=== PATIENT | male | born 1935 | race Caucasian/White ===

== ENCOUNTER → 2017-11-13 11:02 | Outpatient (CLI) | payer MEDICARE, SELFPAY ==
[2017-11-13 11:31] LABS: Absolute Lymphocyte Count 1.95 X10^3/ul (0.83-4.51); Absolute Neutrophil Count 2.5 X10^3/uL (2.0-7.7); Basophil# 0.03 X10^3/uL; Basophil% 0.6 % (0-1); Eosinophil# 0.31 X10^3/uL; Eosinophils% 6.1 % (0-5); Hematocrit 37.8 % (40-54); Hemoglobin 12.7 g/dl (13.0-16.5); Lymphocyte # 1.95 X10^3/ul (4.0); Lymphocyte % 38.2 % (19-41); Mean Corp Hgb Conc 33.6 g/gl (32-36); Mean Corpuscular Hgb 30.6 pg (27.0-32.0); Mean Corpuscular Volume 91.1 fL (80-94); Mean Platelet Vol. 9.8 fl (6.2-12.0); Monocyte# 0.32 X10^3/uL; Monocyte% 6.3 % (0-10); Neutrophil # 2.49 X10^3/uL (2.7-7.7); Neutrophil % 48.8 % (47-70); Platelet Count 127 K/mm3 (150-450); RBC Distribution Width SD 46.1 fl (35.1-43.9); Red Blood Count 4.15 M/mm3 (4.6-6.2); White Blood Count 5.1 K/mm3 (4.4-11.0)
[2017-11-13 11:35] LABS: POSITIVE COUNT NO; POSITIVE DIFFERENTIAL NO; POSITIVE MORPHOLOGY NO
[2017-11-13 12:04] LABS: T4 Free Direct 0.81 ng/dL (0.76-1.46); Thyroid Stim Hormone (TSH) 4.21 uIU/mL (0.358-3.74)
== END ==
PROVIDERS: Family Provider Family Medicine; PCP Family Medicine; Visit Provider Nurse Practitioner Family
DX: R53.83 Other fatigue (principal)
CPT/HCPCS: 36415; 84439; 84443; 85025

== ENCOUNTER → 2018-05-16 09:38 | Outpatient (CLI) | payer MEDICARE, SELFPAY ==
[2018-04-23 09:01] VITALS: BMI 32.1
--- NOTE | 2018-05-16 09:42 | ECHOD_ITS ---
Reason For Study: CAD/ASHD Procedure This was a 2D Doppler, Color Flow transthoracic echocardiogram. Exam performed in department. Left Ventricle Mild concentric left ventricular hypertrophy. The estimated ejection fraction is 75 %. Stage 1 diastolic dysfunction. No regional wall motion abnormalities noted. Right Ventricle Normal size and thickness. Normal systolic function. Atria Normal left atrium. Normal right atrium. Normal atrial septum. Mitral Valve The mitral valve is structurally normal. No prolapse or stenosis seen. Tricuspid Valve Normal tricuspid valve. Unable to estimate RV systolic pressure due to inadequate jet, pulmonary artery pressure probably normal. Aortic Valve Trisinus/trileaflet aortic valve. Mild diffuse aortic valve thickening. Mild focal aortic valve thickening. There is no aortic stenosis. Pulmonic Valve Normal pulmonic valve. Mild (1+) pulmonic valve insufficiency. Great Vessels Normal aortic root. Normal arch. Normal inferior vena cava. Inferior vena cava collapse with sniff. Pericardium/Pleural No pericardial effusion. MMode/2D Measurements & Calculations LVIDd: 3.8 cm IVSd: 1.3 cm Ao root diam: 3.8 cm LVIDs: 2.7 cm LVPWd: 1.3 cm RVDd: 3.3 cm FS: 27.8 % LAV(MOD-bp): 52.4 ml LVAd ap4: 32.3 cm2 SV(MOD-sp4): 66.4 ml LAV(MOD-bp) Indexed: 23.9 ml/m2 EDV(MOD-sp4): 98.3 ml LAV(MOD-sp2): 55.2 ml EDV(sp4-el): 98.9 ml LAV(MOD-sp4): 45.0 ml LVAs ap4: 15.6 cm2 ESV(MOD-sp4): 31.9 ml ESV(sp4-el): 30.2 ml EF(MOD-sp4): 67.6 % EF(sp4-el): 69.4 % SV(sp4-el): 68.7 ml LA A4 area: 18.5 cm2 LA dimension(2D): 3.7 cm RA A4 area: 13.3 cm2 Time Measurements MV dec time: 0.42 sec Doppler Measurements & Calculations MV E max carlos: 58.2 cm/sec Lat Peak E' Carlos: 6.7 cm/sec Med Peak E' Carlos: 5.4 cm/sec MV A max carlos: 100.8 cm/sec E/E' lat: 8.7 E/E' med: 10.9 MV E/A: 0.58 Ao V2 max: 159.3 cm/sec LV V1 max: 109.2 cm/sec PA V2 max: 93.5 cm/sec Ao max P.1 mmHg LV V1 max P.8 mmHg PI end-d carlos: 70.8 cm/sec Interpretation Summary Mild concentric left ventricular hypertrophy. The estimated ejection fraction is 75 %. Stage 1 diastolic dysfunction. Unable to estimate RV systolic pressure due to inadequate jet, pulmonary artery pressure probably normal. Compared to echo report dated 02/23/2016, LV Function has improved from 505 to 75%. Ordering Physician: Johnny King Referring Physician: HERMINIO AGUSTIN Performed By: Xuan Franklin RDCS
== END ==
PROVIDERS: Family Provider Family Medicine; PCP Family Medicine; Referring Provider Internal Medicine Cardiovascular Disease; Visit Provider Internal Medicine Cardiovascular Disease
DX: I25.10 Atherosclerotic heart disease of native coronary artery without angina pectoris (principal); I51.9 Heart disease, unspecified
CPT/HCPCS: 93306

== ENCOUNTER → 2018-05-18 10:27 | Outpatient (CLI) | payer MEDICARE, SELFPAY ==
[2018-04-23 09:01] VITALS: BMI 32.1
--- NOTE | 2018-05-18 10:28 | STEWCON_ITS ---
Reason For Study: CAD Stress Results Protocol: Dobutamine Stress Echo Maximum Predicted HR: 140 bpm Target HR: 119 bpm % Maximum Predicted HR: 90 % DurationHeart Rate Stage (mm:ss) (bpm) BP Comment Baseline 59 139/86No Chest Pain; 5 ML Diluted Definity Given DSE 10 MCG 3:42 69 149/93No Chest Pain DSE 20 MCG 3:00 111 122/90No Chest Pain DSE 30 MCG 2:34 126 151/88No Chest Pain Recovery 71 146/82No Chest Pain Stress Duration: 9:16 mm:ss Maximum Stress HR: 126 bpm METS: 1 Baseline Echocardiogram Findings The estimated ejection fraction is 65 %. Stress Echo Wall motion Data Resting WM Intermediate WM Stress WM Resting Wall Motion Wall Motion Stress No regional wall motion No regional wall motion abnormalities noted. abnormalities noted. EKG Data Normal intervals are noted. The patient was titrated from 10 mcg to a maximun of 30 mcg of dobutamine during the stress. The maximum heart rate attained was 126 beats per minute. This was 90% of maximum predicted heart rate. During dobutamine infusion, there were no ST or T wave changes noted to suggest ischemia. No clinical angina was noted. Interpretation Summary The estimated ejection fraction is 65 %. Normal, adequate, dobutamine echocardiogram. Negative for ischemia by EKG and echocardiographic criteria. No anginal symptoms noted. Rare PVC noted. Appropriate blood pressure response to dobutamine. Final LVEF of 75%. Decreased sensitivity due to poor echo windows requiring Definity enhancing agent. Test was terminated due to attainment of target heart rate. No complications. The study was technically difficult. Contrast injection was performed. Ordering Physician: Johnny King Referring Physician: Wagner Gr Performed By: Spenser Akhtar RCS
== END ==
PROVIDERS: Family Provider Family Medicine; PCP Family Medicine; Referring Provider Internal Medicine Cardiovascular Disease; Visit Provider Internal Medicine Cardiovascular Disease
DX: I25.10 Atherosclerotic heart disease of native coronary artery without angina pectoris (principal); I51.9 Heart disease, unspecified; E78.5 Hyperlipidemia, unspecified; Z95.5 Presence of coronary angioplasty implant and graft
CPT/HCPCS: 93017; 93350; J7040; Q9957; A4216; C8928

== ENCOUNTER 2018-10-31 20:40 | Emergency (ER) | payer MEDICARE, SELFPAY ==
[2018-04-23 09:01] VITALS: BMI 32.1
[2018-10-31 20:41] VITALS: BP 168/77; PULSE 79; RESP 22; TEMP 36.2; O2SAT 97; BMI 30.4
--- NOTE | 2018-10-31 21:39 | ED.VIS.UPPEX ---
History of Present Illness Chief Complaint: Laceration Informant: Patient Occurred: Hours - 2-3 Mechanism/Context: Incised - Accidentally on a wooden gasoline powered model airplane propeller Context: Sudden Onset Timing: Continuous Quality of Pain: - - sore Location: Right forearm Current Severity: Mild Maximum Severity: Moderate Worsened by: Palpation Relieved by: Leaving alone Associated Symptoms: Negative for: Parasthesia, Weakness, Loss of Funtion Narrative: [id number]. Patient has had significant bleeding since he is on Plavix for cardiac stents. He denies any systemic symptoms or lightheadedness. Tetanus Immunization: Unknown - Past Medical History (1) Atherosclerotic heart disease of [place] coronary artery without angina pectoris Status: Chronic Comment: 02/22/2016 Acute lateral STEMI; PTCA and ANDRY X2 to proximal and mid LAD, POBA of ostium of dx (2) Hyperlipidemia Status: Chronic (3) Hypertension Status: Chronic (4) Left ventricular systolic dysfunction Status: Chronic Comment: per echo 02/23/2016 (5) Type 2 diabetes mellitus Status: Chronic Past Medical History - Allergies and Home Meds Allergies/Adverse Reactions: Allergies Penicillins Allergy (Verified 10/31/18 20:53) Hives tree and shrub pollen Allergy (Verified 10/31/18 20:53) Other lisinopril Adverse Reaction (Mild, Verified 10/31/18 20:53) cough Primary Care Physician: Wagner Gr MD [Primary Care Provider] - Surgical History: appendectomy, - - 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 Denies: Swelling Skin: Reports: Wounds Neurological: Denies: Headache, Weakness, Parasthesia, Numbness Physical Exam Vital Signs/Narrative: Vital Signs Temp Pulse Resp BP Pulse Ox 10/31/18 20:41 97.2 F L 79 22 H 168/77 H 97 General: Well nourished, Well developed, - - Well-appearing, NAD Head: Normocephalic, Atraumatic Extremeties: Full range of motion of wrist extensors and finger extensors. Flexor is also intact. Neurovascularly intact distally right upper extremity. Skin: Trauma - 4 cm laceration down to the fascia on the dorsal mid right forearm. No tendon or muscle visible. Significant venous bleeding that resolves with pressure. No arteriolar bleeding, all is very dark. No contamination. Laceration linear. Neurological: Alert, Oriented x3, Cranial nerves II-XII grossly intact, Normal Strength, Normal Sensation Psychological: Normal affect, Normal Mood Diagnostic/Tx/Re-eval - Medical Decision Making Laceration was repaired, he will be placed on prophylactic antibiotics since it went down to the fascia. His tetanus was updated. Discussed signs of infection and reasons to return to the ER. He is comfortable with his overall plan. Procedures - Lacerations Right forearm Length: 4 cm Depth: Fascia Shape: Linear Prep: Sterile Conditions, Chlorhexadine Laceration repair: Lidocaine with epi - 7 cc, Local, Skin sutures Irrigated (ml): 100 Number of Sutures/Devan: 5 Suture Information: Ethilon, Horizontal, Mattress, - - 3-0 Comment: Skin edges everted nicely, good hemostasis. Tolerated well. No comp occasions. ED Disposition - Plan for ED Patient: Disposition: Home or Assisted Living Diagnosis: Laceration of right forearm, Immunization, tetanus-diphtheria Instructions: LACERATION, Extrem (Suture, Staple or Tape) Prescriptions: Cephalexin [Keflex] 500 mg PO Q8 #15 cap Prescription Printed Referrals: Wagner Gr MD [Primary Care Provider] - 10-14 Days suture removal
[2018-10-31 22:44] VITALS: BP 156/84; PULSE 57; RESP 16; O2SAT 97
[2018-10-31] MEDS: Diphth,Pertuss(Acell),Tet Vac 0.5 ML Vial IM (22:56)
[2018-10-31 23:31] VITALS: PULSE 62; RESP 14; O2SAT 96
== END 2018-10-31 23:33 | disposition home or self-care (01) ==
PROVIDERS: Emergency Provider Emergency Medicine; Family Provider Family Medicine; PCP Family Medicine
DX: S51.811A Laceration without foreign body of right forearm, initial encounter (principal); W45.8XXA Other foreign body or object entering through skin, initial encounter; Y93.9 Activity, unspecified; Y92.9 Unspecified place or not applicable; Y99.9 Unspecified external cause status; Z23 Encounter for immunization; I25.10 Atherosclerotic heart disease of native coronary artery without angina pectoris; E11.9 Type 2 diabetes mellitus without complications; I10 Essential (primary) hypertension; E78.5 Hyperlipidemia, unspecified; Z79.02 Long term (current) use of antithrombotics/antiplatelets; I25.2 Old myocardial infarction; Z88.0 Allergy status to penicillin; Z95.5 Presence of coronary angioplasty implant and graft
CPT/HCPCS: 12002; 90471; 90715; 99284

== ENCOUNTER 2018-11-28 07:25 | Emergency (ER) | payer MEDICARE, SELFPAY ==
[2018-11-13 11:23] VITALS: BMI 30.5
[2018-11-28 07:26] VITALS: BP 177/115; PULSE 61; RESP 18; TEMP 36.4; O2SAT 98; BMI 30.4
--- NOTE | 2018-11-28 07:36 | ED.VIS.GEN ---
History of Present Illness Chief Complaint: Chest Pain Informant: Patient Onset: Yesterday Timing: Continuous Current Severity: Moderate Maximum Severity: Moderate Narrative: Patient presents with left-sided chest pain that started yesterday it is itchy and painful it starts in his back and makes its way around to the front, it is only on the left side of the body. He denies any fever chills cough congestion or shortness of breath. He noticed the rash last night. It is burning and itching. The pain is constant. He has no tearing sensation. 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 Smoking Status: Former smoker - Family History Maternal Family History: Family History (Last Reviewed 11/10/18 @ 16:32 by Shelbie Lake) Father CAD (coronary artery disease) Myocardial infarction Sudden cardiac Mother Diabetes Family History: Reports: No pertinent history Paternal Family History: Family History (Last Reviewed 11/10/18 @ 16:32 by Shelbie Lake) Father CAD (coronary artery disease) Myocardial infarction Sudden cardiac Mother Diabetes Family History: Reports: Heart Disease, No pertinent history Review of Systems All systems negative except as indicated General: Denies: Fever Cardiovascular: Reports: Chest pain. Denies: Heart racing Respiratory: Denies: Cough, Sputum Gastrointestinal: Denies: Nausea Musculoskeletal: Reports: Back pain. Denies: Neck pain Skin: Reports: Rash Neurological: Denies: Weakness Physical Exam Vital Signs/Narrative: Vital Signs Temp Pulse Resp BP Pulse Ox 11/28/18 07:26 97.6 F L 61 18 177/115 H 98 General: Well nourished ENT: Moist mucous membranes Cardiovascular: Regular rate, Regular rhythm Respiratory: No distress, CTA bilaterally, Chest tenderness Abdomen: Soft, Nontender Back: - - There is tenderness over the same dermatome distribution as the chest. Skin: - - Patient has a vesicular rash consistent with herpes zoster on his chest left side of his trunk extending into a few patches on the back. This is all in a dermatomal distribution. No signs of cellulitis. Psychological: Normal affect Diagnostic/Tx/Re-eval - Rhythm Strip Rhythm Strip: Sinus Rhythm Rate: 55 Ectopy: PAC(s) - EKG Initial EKG Interpretation: Sinus Rhythm, - - Normal AL interval normal QTC nonspecific intraventricular delay. Nonspecific ST changes Interpreted by emergency doctor - Medical Decision Making Patient has an unremarkable EKG. He has a history and physical consistent with herpes zoster. I will treat as such. First dose of acyclovir was given in the emergency department I will discharge with both analgesics and acyclovir at home. I educated him. Disposition discharge stable condition ED Disposition - Plan for ED Patient: Disposition: Home or Assisted Living Diagnosis: Herpes zoster Instructions: Shingles (Herpes Zoster) Prescriptions: Oxycodone HCl/Acetaminophen [Percocet 5/325] 1 tab PO Q6H PRN PRN 3 Days #12 tab PRN Reason: Pain Prescription Printed Acyclovir [Zovirax] 800 mg PO 5X/DAY #35 tab Prescription Printed Referrals: Wagner Gr MD [Primary Care Provider] -
--- NOTE | 2018-11-28 07:47 | EKG12_ITS ---
Test Reason : CP Blood Pressure : / mmHG Vent. Rate : 055 BPM Atrial Rate : 055 BPM P-R Int : 156 ms QRS Dur : 090 ms QT Int : 444 ms P-R-T Axes : 028 -08 036 degrees QTc Int : 424 ms Sinus bradycardia with Premature atrial complexes Otherwise normal ECG Confirmed by FRANCIS COPE, CAT ([id number]), video effects editor JAI CABALLERO ([id number]) on 11/30/2018 11:35:08 AM Referred By: VLADIMIR Confirmed By:SHAY BLANCO MD
[2018-11-28] MEDS: Acyclovir 800 MG Tablet PO (08:00)
[2018-11-28 08:02] VITALS: BP 140/83; PULSE 76; RESP 18; O2SAT 99
== END 2018-11-28 08:03 | disposition home or self-care (01) ==
PROVIDERS: Emergency Provider Emergency Medicine; Family Provider Family Medicine; PCP Family Medicine
DX: B02.9 Zoster without complications (principal); Z79.84 Long term (current) use of oral hypoglycemic drugs; Z79.02 Long term (current) use of antithrombotics/antiplatelets; Z79.899 Other long term (current) drug therapy; Z88.0 Allergy status to penicillin; Z87.891 Personal history of nicotine dependence
CPT/HCPCS: 93005; 99283

== ENCOUNTER 2019-01-28 08:35 | Emergency (ER) | payer MEDICARE, SELFPAY ==
[2019-01-28 08:36] VITALS: BP 149/81; PULSE 63; RESP 18; TEMP 36.4; O2SAT 97; BMI 30.5
--- NOTE | 2019-01-28 09:29 | ED.DCSUM_ITS ---
- ER Visit Summary Date of Service: 01/28/19 Chief Complaint: Laceration History of Present Illness: The patient is a 83 M who presents the emergency department with a left index and thumb laceration. The injury occurred possibly 48 hours prior to arrival. He states he was handling a arrowhead and it lac erated the finger. Left tetanus is up-to-date. He states it is still bleeding and he is on Plavix. He states that now the finger is becoming swollen and red and more painful. He last changed his bandage yesterday. He notes that the left thumb laceration is healing. He is a diabetic. Physical Examination: Afebrile vital signs are stable Gen: Well-nourished well-developed Head: Normocephalic atraumatic Eyes: Perrl EOMI ENT: TMs clear no rhinorrhea moist mucous membranes Neck: Supple no lymphadenopathy no JVD nontender CVS: Regular rate rhythm no murmurs normal S1-S2 Respiratory: No distress clear to auscultation bilaterally chest nontender Abdomen: Soft nontender nondistended normal bowel sounds no masses Back: Nontender Extremity: The left thumb all over the fat pad shows a 1 cm linear laceration that appears to be healing. No evidence of infection. the left index finger demonstrates an L-shaped 2 cm laceration over the lateral volar aspect of the distal index finger. There is erythema extending over the anterior surface up towards but not including the palm. The tissue around the laceration is white and there is still active venous bleeding. He is neurovascular intact distal. There is no crepitance. There is no evidence of a felon. There is no evidence of a flexor or extensor tenosynovitis. Skin: Normal color no rash Neuro: alert orientated ?3 CN II-XII intact normal strength sensation reflexes gait cerebellar Psych: Normal affect normal mood Emergency Department Course and Treatment: Was explained to the patient that typically we would not suture this type of injury however it is still bleeding after at least 48 hours of injury. Wound was locally anesthetized using some 1% lidocaine and a single stitch was placed at the corner of the laceration. Surgicel was placed on top of this and then tube gauze. He will be placed on Keflex. Patient was advised to leave the dressing in place for 48 hours at which point he needs a repeat examination either by us or his primary care physician. Was explained to him that if he is worsening such as seen fever or erythema extending up onto the hand he should come back even if it is before the 48-hour vasquez. He was advised that if is not improving or worsening he may require admission and IV antibiotics and further care. Otherwise if he is healing up appropriately stitches will need to be removed in 7 to 10 days. Impression: 1. Cellulitis of the left index finger 2. 2 cm left index finger laceration with repair 3. 1 cm left thumb laceration without repair This note was generated with [employer] Rocket dictation software. It may contain incorrect words, spelling, and punctuation that were not noted in review of the chart prior to signing ED Disposition - Plan for ED Patient: Disposition: Home or Assisted Living Instructions: Cellulitis, LACERATION, Hand Prescriptions: Cephalexin [Keflex] 500 mg PO Q6 #40 cap Prescription Printed Referrals: Vasquez Gr MD [Primary Care Provider] - 2 Days for wound check Additional Instructions: Stitches will need to be removed in 7-10 days
[2019-01-28] MEDS: Cephalexin 250 MG Capsule 500 MG PO (09:51)
== END 2019-01-28 09:53 | disposition home or self-care (01) ==
PROVIDERS: Emergency Provider Emergency Medicine; Family Provider Family Medicine; PCP Family Medicine
DX: L03.012 Cellulitis of left finger (principal); S61.211A Laceration without foreign body of left index finger without damage to nail, initial encounter; S61.012A Laceration without foreign body of left thumb without damage to nail, initial encounter; W45.8XXA Other foreign body or object entering through skin, initial encounter; Y93.9 Activity, unspecified; Y92.9 Unspecified place or not applicable; Y99.9 Unspecified external cause status; I25.10 Atherosclerotic heart disease of native coronary artery without angina pectoris; E11.9 Type 2 diabetes mellitus without complications; I10 Essential (primary) hypertension; I25.2 Old myocardial infarction; Z79.84 Long term (current) use of oral hypoglycemic drugs; Z79.02 Long term (current) use of antithrombotics/antiplatelets; Z79.899 Other long term (current) drug therapy; Z87.891 Personal history of nicotine dependence
CPT/HCPCS: 12001; 99283

== ENCOUNTER 2020-01-16 13:18 | Inpatient (IN) | payer MEDICARE, SELFPAY ==
[2019-12-27 13:37] VITALS: BMI 26.9
[2020-01-16 13:19] VITALS: BP 154/80; PULSE 70; RESP 18; TEMP 36.2; O2SAT 99; BMI 26.9
--- NOTE | 2020-01-16 13:42 | CT_ITS ---
STUDY: CT ABDOMEN AND PELVIS WITHOUT CONTRAST REASON FOR EXAM: Male, 84 years old. HEMATURIA W/ CLOTS X-SEVERAL DAYS -- HX- CLL -- SURG-APPY, HEART STENTS RADIATION DOSAGE (If Supplied By Facility): CTDIvol = ( 10.99 ) mGy, DLP = ( 535.33 ) mGycm TECHNIQUE: Transaxial images were obtained from the dome of the diaphragm to the symphysis pubis without oral contrast, and without intravenous contrast. Sagittal and coronal images were reconstructed. Individualized dose optimization techniques were used for this CT. COMPARISON: Comparison is made with prior study dated 11/03/2016. FINDINGS: The visualized lung bases are unremarkable. Coronary artery calcification. Normal liver. Normal gallbladder and extrahepatic biliary system. Normal spleen. There is diffuse atrophy of the pancreas. Normal bilateral adrenal glands. Normal right kidney. Normal left kidney. Normal visualized stomach. Normal small intestine. Normal colon. The appendix is visualized and appears normal. There is diffuse atherosclerotic calcification of the abdominal aorta and its major visceral branches. Minimally dilated distal abdominal aorta measuring 2.6 cm in transverse dimension. Normal inferior vena cava. There is retroperitoneal lymphadenopathy with enlarged nodes greater than 10-15mm in the short axis. These have progressed in size as well as in number as compared to prior study. There is also evidence of a progression of the pelvic lymphadenopathy bilaterally more prominent on the left side. There is evidence of a 3 cm x 4.4 cm polypoid mass arising at the base the bladder on the right side. There is enlargement of the prostate gland. It measures 6.3 cm x 6.5 cm. There is a left-sided inguinal hernia containing adipose tissue. There are diffuse degenerative changes of the visualized lumbar spine. CT/Abdomen/Pelvis without Cont IMPRESSION: Progressive enlargement of the retroperitoneal lymph and pelvic lymph nodes as compared to prior study. Polypoid lesion in the urinary bladder as described. Prostatic enlargement. Small left inguinal hernia. Electronically Signed: Sudhakar Shelby, at 14:41 EDT , Service support ,
--- NOTE | 2020-01-16 13:45 | ED.DCSUM_ITS ---
History of Present Illness Chief Complaint: Complaint Informant: Patient Onset: Days - 2 Narrative: Patient presents for evaluation reporting hematuria with clots for the past couple days. States today had some pain in the lower abdomen, he states there was urine retention. Prior to coming to the ED he states he urinated a large clot, then has urinated again since then. He is on Plavix for history of coronary stent. No aspirin therapy no other anticoagulants. Similar symptoms 2 years ago after his coronary stent. He is followed by Dr. Peres. Reports he did initially call urology office has a appointment next Monday for planned cystoscopy. No history of kidney stones. Currently symptom-free. No fever. No dysuria. 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 Smoking Status: Former smoker - Family History Maternal Family History: Family History (Last Reviewed 12/27/19 @ 13:55 by Marlene BENOIT, PA) Father CAD (coronary artery disease) Myocardial infarction Sudden cardiac Mother Diabetes Family History: Reports: No pertinent history Paternal Family History: Family History (Last Reviewed 12/27/19 @ 13:55 by Marlene BENOIT, PA) Father CAD (coronary artery disease) Myocardial infarction Sudden cardiac Mother Diabetes Family History: Reports: Heart Disease, No pertinent history Review of Systems General: Denies: Chills, Fever, Sweats Eyes: Denies: Visual changes - bilaterally, Diplopia ENT: Denies: Rhinorrhea, Sore throat Cardiovascular: Denies: Chest pain, Palpitations Respiratory: Denies: Dyspnea, Cough, Dyspnea on exertion Gastrointestinal: Reports: Abdominal pain. Denies: Nausea, Vomiting, Diarrhea, Melena, Hematochezia Genitourinary: Reports: Hematuria. Denies: Dysuria, Frequency Musculoskeletal: Denies: Back pain, Extremity Pain Skin: Denies: Rash, Wounds Neurological: Denies: Headache, Weakness, Numbness Physical Exam Vital Signs/Narrative: Vital Signs Temp Pulse Resp BP Pulse Ox 01/16/20 13:19 97.2 F L 70 18 154/80 H 99 Inital Vital Signs reviewed: Yes General: Well nourished, Well developed, No Acute Distress Head: Normocephalic, Atraumatic Eyes: Perrl, EOMI ENT: Moist mucous membranes, No rhinorrhea Neck: Supple, Nontender Cardiovascular: Regular rate, Regular rhythm, No murmurs Respiratory: No distress, CTA bilaterally, Chest nontender Abdomen: Soft, Nontender, Nondistended, Normal bowel sounds, - - Negative Hunt's or McBurney's tenderness. Back: Nontender, Normal Inspection Extremities: Nontender, No edema Skin: Normal color, No rash Neurological: Alert, Oriented x3, Cranial nerves II-XII grossly intact, Normal Strength, Normal Sensation Psychological: Normal affect, Normal Mood Diagnostic/Tx/Re-eval Clinical Impression(s) from Imaging Studies Abdomen/Pelvis CT 01/16/20 13:42 IMPRESSION: Progressive enlargement of the retroperitoneal lymph and pelvic lymph nodes as compared to prior study. Polypoid lesion in the urinary bladder as described. Prostatic enlargement. Small left inguinal hernia. Electronically Signed: Sudhakar Afsaneh, at 14:41 EDT , Service support , Abnormal Lab Results 01/16/20 01/16/20 01/16/20 14:00 14:00 14:10 WBC 4.4 RBC 3.81 L Hgb 11.7 L Hct 35.4 L MCV 92.9 MCH 30.7 MCHC 33.1 RDW Std Deviation 48.7 H RDW Coeff of Lamont 14.5 Plt Count 80 L MPV 10.7 Immature Gran % (Auto) 5.900 H Neut % (Auto) 30.3 L Lymph % (Auto) 49.2 H Ralls % (Auto) 6.8 Eos % (Auto) 7.1 H Baso % (Auto) 0.7 Absolute Neuts (auto) 1.3 L Absolute Lymphs (auto) 2.16 Nucleated RBC % 0 Differential Comment SCANNED Platelet Estimate MOD DEC PT INR APTT Sodium 140 Potassium 3.8 Chloride 107 Carbon Dioxide 28.0 Anion Gap 5 BUN 20 H Creatinine 1.23 Estim Creat Clear Calc 47.81 Est GFR (MDRD) Af Amer 72 Est GFR (MDRD) Non-Af 60 BUN/Creatinine Ratio 16.3 Glucose 109 H Calcium 8.9 Urine Color Red Urine Clarity Turbid Urine pH 6.5 Ur Specific Sebastian 1.010 Urine Protein 500 H Urine Glucose (UA) Normal Urine Ketones 15 H Urine Occult Blood 250 H Urine Nitrite Negative Urine Bilirubin Negative Urine Urobilinogen Normal Ur Leukocyte Esterase Negative Urine RBC > 100 SEEN Urine WBC 0 SEEN Ur Squamous Epith Cells 0 SEEN Urine Bacteria 0 SEEN Urine Mucus 0 SEEN 01/16/20 15:17 WBC RBC Hgb Hct MCV MCH MCHC RDW Std Deviation RDW Coeff of Lamont Plt Count MPV Immature Gran % (Auto) Neut % (Auto) Lymph % (Auto) Ralls % (Auto) Eos % (Auto) Baso % (Auto) Absolute Neuts (auto) Absolute Lymphs (auto) Nucleated RBC % Differential Comment Platelet Estimate PT 13.9 INR 1.1 APTT 26.7 Sodium Potassium Chloride Carbon Dioxide Anion Gap BUN Creatinine Estim Creat Clear Calc Est GFR (MDRD) Af Amer Est GFR (MDRD) Non-Af BUN/Creatinine Ratio Glucose Calcium Urine Color Urine Clarity Urine pH Ur Specific Sebastian Urine Protein Urine Glucose (UA) Urine Ketones Urine Occult Blood Urine Nitrite Urine Bilirubin Urine Urobilinogen Ur Leukocyte Esterase Urine RBC Urine WBC Ur Squamous Epith Cells Urine Bacteria Urine Mucus - Medical Decision Making Patient improving pain after urinating out the clot. There was dark red blood in the urinal. He is on Plavix. Check labs, hemoglobin 11.7. Urine no blood with no infection. Culture sent. CT scan was ordered for evaluation, noted concerning for mass inferior aspect of bladder 3 cm x 4.4 cm. This is new compared to CT scan 2017. Blood pressure stable. I spoke with his urologist Dr. Peres, patient's age on Plavix and new findings of mass. Will admit to the hospital on his service for further inpatient management. No patient did urinate twice reported he had clots on one of them. No Mills at this time. Patient updated. ED Disposition - Plan for ED Patient: Disposition: Acute Care Hospital [facility] Diagnosis: Hematuria, Bladder mass
[2020-01-16 14:18] LABS: Bacteria 0 SEEN /hpf (None Seen); Mucous, Urine 0 SEEN /hpf (<or=2+); Squamous Epithelial Cells - UA 0 SEEN /hpf (0-5); White Blood Cells 0 SEEN /hpf (0-5)
[2020-01-16 14:20] LABS: Color, Urine Red (Yellow); Glucose, Dipstick Normal (Normal); Ketone-Dipstick 15 mg/dl (Negative); Leukocyte Esterase-Dipstick Negative /ul (Negative); Nitrite-Dipstick Negative (Negative); Occult Blood-Urine 250 /ul (Negative); Protein-Dipstick 500 mg/dl (Negative); Urine Bilirubin Dipstick Negative (Negative); Urine Clarity Turbid (Clear); Urine Urobilinogen Normal (Normal); Urine pH 6.5 (5.0 - 8.0)
[2020-01-16 14:26] LABS: Basophil# 0.03 X10^3/uL; Basophil% 0.7 % (0-1); Eosinophil# 0.31 X10^3/uL; Eosinophils% 7.1 % (0-5); Hematocrit 35.4 % (40-54); Hemoglobin 11.7 g/dL (13.0-16.5); Lymphocyte % 49.2 % (19-41); Mean Corp Hgb Conc 33.1 g/dL (32-36); Mean Corpuscular Hgb 30.7 pg (27.0-32.0); Mean Corpuscular Volume 92.9 fL (80-94); Mean Platelet Vol. 10.7 fl (6.2-12.0); Monocyte% 6.8 % (0-10); NRBC Flagged by Analyzer 0 % (0-5); Neutrophil % 30.3 % (47-70); POSITIVE COUNT YES; POSITIVE MORPHOLOGY YES; Platelet Count 80 K/mm3 (150-450); RBC Distribution Width CV 14.5 % (11.6-14.6); RBC Distribution Width SD 48.7 fl (35.1-43.9); Red Blood Count 3.81 M/mm3 (4.6-6.2); White Blood Count 4.4 K/mm3 (4.4-11.0)
[2020-01-16 14:27] LABS: Anion Gap 5 (5-15); BUN 20 mg/dL (7-18); BUN/Creat Ratio 16.3 RATIO (10-20); Calcium,Total 8.9 mg/dL (8.5-10.1); Chloride 107 mmol/L (98-107); Creatinine, Serum 1.23 mg/dL (0.70-1.30); EST Glomerular Filtration Rate 60 mL/min (>60); Est Glom Filt Rate - Afr Amer 72 mL/min (>60); Estimated Creatinine Clearance 47.81 ml/min; Glucose 109 mg/dL (74-106); Potassium 3.8 mmol/L (3.5-5.1); Sodium Level 140 mmol/L (136-145)
[2020-01-16 14:28] LABS: Red Blood Cells-Urine > 100 SEEN /hpf (0-5)
[2020-01-16 15:06] LABS: Differential Indicated SCAN CRITERIA MET
[2020-01-16 15:08] LABS: Differential Comment SCANNED; Platelet Estimate MOD DEC (ADEQ)
[2020-01-16 15:20] VITALS: BP 145/70; PULSE 60; RESP 16; TEMP 36.6
[2020-01-16 15:45] LABS: International Normalized Ratio 1.1; Partial Thromboplast Time 26.7 Seconds (24.1-36.2); Prothrombin Time (Protime)PT. 13.9 SECONDS (11.7-14.9)
--- NOTE | 2020-01-16 15:57 | HP.PCM_ITS ---
Problem List (1) Hematuria Status: Acute (2) Bladder mass Status: Acute History of Present Illness Date of Admission: 01/16/20 Chief Complaint: gross hematuria The patient is a 84 year old male presents to the emergency room with gross hematuria is a very large bladder appears and the median lobe as well he's been bleeding off and on with heavy bleeding and difficulty with urination. CAT scan was done the demonstrated multiple blood clots within the bladder prostate is a very large bladder very large prostate he is on Plavix plan to submit the patient taken the surgery tomorrow to likely blood clots cauterize and the eating probably will need a catheter and then probably will need to set him up for interval removal or resection of the prostate one sees office Plavix completely. Past Medical History Past Medical History (Chronic Problems): Chronic Problems (Last Reviewed 12/27/19 @ 13:55 by Marlene Navarro PA, PA) Left ventricular systolic dysfunction (Chronic) per echo 02/23/2016 History of left heart catheterization (Chronic) 02/22/2016 Acute Anterior STEMI;LHC, PTCA and ANDRY X2 to proximal and mid LAD, POBA of ostium of dx per Dr. King, [facility] Stented coronary artery (Chronic) 02/22/2016 Acute Anterior STEMI; PTCA and ANDRY X2 to proximal and mid LAD, POBA of ostium of dx History of lateral wall myocardial infarction (Chronic) 02/22/2016 Atherosclerotic heart disease of [place] coronary artery without angina pectoris (Chronic) 02/22/2016 Acute lateral STEMI; PTCA and ANDRY X2 to proximal and mid LAD, POBA of ostium of dx Hyperlipidemia (Chronic) Hypertension (Chronic) Type 2 diabetes mellitus (Chronic) Medical History: Medical History (Last Reviewed 01/16/20 @ 15:[address] Andres Peres MD) Left ventricular systolic dysfunction (Chronic) I51.9 per echo 02/23/2016 History of lateral wall myocardial infarction (Chronic) I25.2 02/22/2016 Atherosclerotic heart disease of [place] coronary artery without angina pectoris (Chronic) I25.10 02/22/2016 Acute lateral STEMI; PTCA and ANDRY X2 to proximal and mid LAD, POBA of ostium of dx Hyperlipidemia (Chronic) E78.5 Hypertension (Chronic) I10 Type 2 diabetes mellitus (Chronic) E11.9 Aneurysm of infrarenal abdominal aorta I71.4 Lymphoma C85.90 Allergies Penicillins Allergy (Verified 01/16/20 13:19) Hives tree and shrub pollen Allergy (Verified 01/16/20 13:19) Other lisinopril Adverse Reaction (Mild, Verified 01/16/20 13:19) cough Home Medications: Ambulatory Orders Medication Instructions Recorded Tamsulosin HCl [Flomax] 0.4 mg PO DAILY 04/05/13 levothyroxine 75 mcg tablet 75 mcg PO DAILY 04/23/18 atorvastatin 40 mg tablet 40 mg PO QHS #90 tab 05/24/18 losartan 25 mg tablet 25 mg PO DAILY #90 tab 04/23/19 carvedilol 3.125 mg tablet 3.125 mg PO BID #180 tab 07/26/19 clopidogrel 75 mg tablet 75 mg PO QDAY #90 tab 12/27/19 finasteride 5 mg tablet 5 mg PO DAILY 12/27/19 Surgical History: Surgical History (Last Reviewed 12/27/19 @ 13:55 by Marlene BENOIT, PA) History of left heart catheterization (Chronic) Z98.890 02/22/2016 Acute Anterior STEMI;LHC, PTCA and ANDRY X2 to proximal and mid LAD, POBA of ostium of dx per Dr. King, [facility] Stented coronary artery (Chronic) Z95.5 02/22/2016 Acute Anterior STEMI; PTCA and ANDRY X2 to proximal and mid LAD, POBA of ostium of dx History of appendectomy Z90.49 Surgical History: appendectomy, - - Lymph node biopsy secondary to lymphoma Psychiatric History: No pertinent psych hx Smoking Status: Never smoker - *Family History Maternal Family History: Family History (Last Reviewed 12/27/19 @ 13:55 by Marlene BENOIT, PA) Father CAD (coronary artery disease) Myocardial infarction Sudden cardiac Mother Diabetes History Items: No pertinent history Paternal Family History: Family History (Last Reviewed 12/27/19 @ 13:55 by Marlene BENOIT, PA) Father CAD (coronary artery disease) Myocardial infarction Sudden cardiac Mother Diabetes History Items: Heart Disease, No pertinent history Review of Systems Constitutional: Denies: Chills, Fever, Weight Change HEENT: Denies: Head Aches, Sinus Congestion, Sinus Drainage Cardiovascular: Denies: Chest Pain, Palpitations Respiratory: Denies: Cough, Shortness of breath at rest, Sputum production Gastrointestinal: Denies: Abdominal Pain, Nausea, Vomiting Genitourinary: Denies: Dysuria Musculoskeletal: Denies: Joint Pain, Joint Tenderness Skin: Denies: Rash, Wounds Neurological: Denies: Numbness, Tingling, Focal weakness Psychiatric: Denies: Anxiety, Depression, Homicidal Ideations, Suicidal Ideations Hematologic/ Lymphatic: Denies: Easy Bruising, Easy Bleeding VTE Information - Inpt Only VTE Present on Admission: No VTE Mechan Device Prophylaxis: SCD's Patient Problems: Active and Suspected Problems (Last Reviewed 12/27/19 @ 13:55 by Marlene Navarro PA, PA) Hematuria (Acute) Bladder mass (Acute) - Physical Exam Vitals/I&O's: Vital Signs Temp Pulse Resp BP Pulse Ox 97.8 F 60 16 145/70 H 99 01/16/20 15:20 01/16/20 15:20 01/16/20 15:20 01/16/20 15:20 01/16/20 13:19 Oxygen Delivery Method Room Air Weight: 85.275 kg Body Mass Index (BMI) 26.9 General: Alert, Oriented x3, Cooperative HEENT: Atraumatic, PERRLA, EOMI, Normocephalic Neck: Supple, No JVD, Negative Carotid Bruits Lungs: Clear to auscultation, Normal air movement Cardiovascular: Regular rate, No murmurs Abdomen: Bowel Sounds Present, Soft, Non Tender Extremities: No edema, Capillary Refill Less than 3 Seconds Skin: No rashes, No breakdown Musculoskeletal: No Tenderness to Palpation of Joints or Extremities Neurological: Cranial nerves II-XII grossly intact Psych/Mental Status: Normal Affect, Appropriate Laboratory Results 01/16/20 14:00: WBC 4.4, RBC 3.81 L, Hgb 11.7 L, Hct 35.4 L, MCV 92.9, MCH 30.7, MCHC 33.1, RDW Std Deviation 48.7 H, RDW Coeff of [place] 14.5, Plt Count 80 L, MPV 10.7, Immature Gran % (Auto) 5.900 H, Neut % (Auto) 30.3 L, Lymph % (Auto) 49.2 H, [place] % (Auto) 6.8, Eos % (Auto) 7.1 H, Baso % (Auto) 0.7, Absolute Neuts (auto) 1.3 L, Absolute Lymphs (auto) 2.16, Nucleated RBC % 0, Differential Comme nt SCANNED, Platelet Estimate MOD 01/16/20 14:00: Sodium 140, Potassium 3.8, Chloride 107, Carbon Dioxide 28.0, Anion Gap 5, BUN 20 H, Creatinine 1.23, Estim Creat Clear Calc 47.81, Est GFR (MDRD) Af Amer 72, Est GFR (MDRD) Non-Af 60, BUN/Creatinine Ratio 16.3, Glucose 109 H, Calcium 8.9 01/16/20 14:10: Urine Color Red, Urine Clarity Turbid, Urine pH 6.5, Ur Specific [place] 1.010, Urine Protein 500 H, Urine Glucose (UA) Normal, Urine Ketones 15 H, Urine Occult Blood 250 H, Urine Nitrite Negative, Urine Bilirubin Negative, Urine Urobilinogen Normal, Ur Leukocyte Esterase Negative, Urine RBC > 100 SEEN, Urine WBC 0 SEEN, Ur Squamous Epith Cells 0 SEEN, Urine Bacteria 0 SEEN, Urine Mucus 0 SEEN 01/16/20 15:17: PT 13.9, INR 1.1, APTT 26.7 01/16/20 15:17: Blood Type Pending, Antibody Screen Pending Assessment/Plan All Active Problems (Last Reviewed 12/27/19 @ 13:55 by Marlene Navarro PA, PA) Hematuria (Acute) Bladder mass (Acute) Sepsis (Acute) Urinary tract infection (Acute) admit to the hospital for gross hematuria bleeding very large prostate with the surgery tomorrow vacation blood clots placement a Mills catheter
[2020-01-16 16:50] VITALS: BMI 26.9; BMI 27.0
[2020-01-16 17:13] VITALS: BP 125/67; PULSE 69; RESP 18; TEMP 36.3; O2SAT 98
[2020-01-16] MEDS: 0.9% Normal Saline 1,000 ML 50 ML IV (18:40)
[2020-01-16] MEDS: Cefazolin 1 GM/50 ML BAG IV (21:44)
[2020-01-16] MEDS: Carvedilol 3.125 MG TABLET PO (21:44)
[2020-01-16] MEDS: Atorvastatin Calcium 40 MG Tablet PO (21:44)
[2020-01-16 23:15] VITALS: BP 143/72; PULSE 65; RESP 16; TEMP 37.1; O2SAT 98
[2020-01-17] VITALS (13 sets, daily range): BP systolic 88–165; BP diastolic 44–79; PULSE 53–80; RESP 14–18; TEMP 36.4–37.4; O2SAT 95–99; BMI 26.9; BMI 27.0
[2020-01-17 04:43] LABS: Basophil 1 % (0-1); Eosinophil 4 % (0-5); Lymphocyte 50 % (19-41); Monocyte 1 % (0-10); Neutrophil-Segmented 44 % (47-70); Total Cells Counted 100 (MANUAL DIFF)
[2020-01-17 04:44] LABS: Absolute Lymphocyte Count 2.19 X10^3/uL (0.83-4.51); Lymphocyte # 2.19 X10^3/ul (4.0); Red Cell Morphology NORM C+C NORMAL (NORM C&C)
[2020-01-17 04:45] LABS: Absolute Neutrophil Count 1.9 X10^3/uL (2.0-7.7); Neutrophil # 1.93 X10^3/uL (2.7-7.7)
[2020-01-17] MEDS: Cefazolin 1 GM/50 ML BAG IV ×2 (05:30→22:49)
[2020-01-17 07:03] LABS: Hematocrit 32.3 % (40-54); Hemoglobin 10.7 g/dL (13.0-16.5); Mean Corp Hgb Conc 33.1 g/dL (32-36); Mean Corpuscular Hgb 30.8 pg (27.0-32.0); Mean Corpuscular Volume 93.1 fL (80-94); Mean Platelet Vol. 11.1 fl (6.2-12.0); POSITIVE COUNT YES; Platelet Count 71 K/mm3 (150-450); RBC Distribution Width CV 14.4 % (11.6-14.6); RBC Distribution Width SD 48.6 fl (35.1-43.9); Red Blood Count 3.47 M/mm3 (4.6-6.2); White Blood Count 4.9 K/mm3 (4.4-11.0)
[2020-01-17 07:37] LABS: Anion Gap 5 (5-15); BUN 20 mg/dL (7-18); Calcium,Total 8.6 mg/dL (8.5-10.1); Chloride 110 mmol/L (98-107); Creatinine, Serum 1.11 mg/dL (0.70-1.30); EST Glomerular Filtration Rate 67 mL/min (>60); Est Glom Filt Rate - Afr Amer 82 mL/min (>60); Estimated Creatinine Clearance 52.98 ml/min; Glucose 126 mg/dL (74-106); Potassium 3.6 mmol/L (3.5-5.1); Sodium Level 142 mmol/L (136-145); Thyroid Stim Hormone (TSH) 2.79 uIU/mL (0.358-3.74)
[2020-01-17 07:45] LABS: Scan Indicated on CBC? Y/N YES- FLAGS NOTED
[2020-01-17 09:42] LABS: Hemoglobin A1c 6.3 % (3.8-5.6)
--- NOTE | 2020-01-17 10:10 | CASEMGMT ---
RN CM Face to Face with patient for initial transition planning/care coordination assessment. RN CM introduced self and role at [facility]. Patient lying in bed, alert and oriented. Patient willing to participate in assessment and is able to answer all questions appropriately. Care providers, pharmacy, and demographics verified. Patient wishes to discharge home, denies need for home health at this time. Patient states he has no further needs or concerns at this time. CM to follow for discharge planning needs that may arise. PCP: Maile Specialists: Larisa, urologist; Luz Maria vehicle upholsterer Preferred Pharmacy:[facility] retail Insurance:[employer] primetime Prescription Benefit: yes Living Will/HPOA:none LNOK:daughters Living Arrangements: Patient lives alone in a 1.5 story home with bed and bath on the main floor. Patient states he is independent at home. Transportation: self, daughter DME/HHC: patient states he has cane, walker, and rollator at home. Patient denies additional DME or previous HHC. Disposition Plan: Patient to discharge home with family support and follow-up plans in place. Deirdre VEGA, RN, CM
[2020-01-17] MEDS: 0.9% Normal Saline 1,000 ML 50 ML IV ×2 (12:38→20:33)
--- NOTE | 2020-01-17 12:49 | PCM.PN.BLA ---
Progress Note 84-year-old male history of heart problems he is on Plavix started having heavy bleeding and was brought into the hospital when taken the surgery today for cystoscopy evacuation of blood clots and exploration of his bladder in process he was causing the bleeding. I suspect this probably from his large prostate we may have to consider surgery on his prostate. But for today which is good to do a diagnostic exploration and do not plan to do any surgery in his prostate. Hopefully will go home later today STROKE Vital Signs/Narrative: Vital Signs Temp Pulse Resp BP Pulse Ox 01/17/20 10:35 98.6 F 66 18 142/68 H 96
[2020-01-17 13:24] LABS: Pathologist Review Reviewed
--- NOTE | 2020-01-17 17:31 | PCM.OPRPT ---
Problem List (1) Hematuria Status: Acute (2) Bladder mass Status: Acute Report of Operation Date of Procedure: 01/17/20 Pre-Operative Diagnosis: Very large prostate gross hematuria prostatic hemorrhaging Post-Operative Diagnosis: Same Surgery/Procedure Performed:: Cystoscopy evacuation of blood clots cauterization of prostatic hemorrhaging Description of Surgical Findings:: 84-year-old male is known to have a very large prostate is on maximal medical therapy he came in with heavy bleeding so we brought him into the hospital today were taken taken back to the operating room to evaluate the prostate and bladder I suspect he is got bleeding from his prostatic fossa and from his prostate. Patient was taken back to the operating room at the smooth induction of general anesthesia he was placed in dorsolithotomy position. The penis testicles were prepped and draped in usual sterile fashion. Went into the urethra with a 21 [place] rigid cystourethroscope once I got inside the prostate found a very large prostate with heavy growth bilaterally and a heavy large median lobe I then evacuated several blood clots out of the back of the bladder and then found some bleeding from the median lobe I used a Bugbee electrode under glycine irrigation to cauterize the median lobe of the prostate until the bleeding slowed down and then we put a three-way catheter into the bladder on continuous bladder irrigation patient acetic was reversed and taken back to the PACU in good condition suspect the bleeding is coming from his prostate for now we will keep in the hospital with continuous irrigation and then I will hold his Plavix and will have to consider doing prostate surgery at some point. Type of Anesthesia:: General Drains: 3 way camacho - Admit VTE Documentation VTE Present on Admission: No VTE Mechan Device Prophylaxis: SCD's
[2020-01-17] MEDS: HYDROcodone Bitartrate/Apap 5/325 Tablet PO (19:04)
[2020-01-17] MEDS: Atorvastatin Calcium 40 MG Tablet PO (22:49)
[2020-01-18] VITALS (7 sets, daily range): BP systolic 94–113; BP diastolic 53–68; PULSE 59–75; RESP 16–18; TEMP 36.7–37.7; O2SAT 93–100; BMI 27.0
[2020-01-18] MEDS: Cefazolin 1 GM/50 ML BAG IV ×3 (05:45→22:51)
[2020-01-18] MEDS: Levothyroxine 75 MCG Tablet PO (05:46)
[2020-01-18] MEDS: Acetaminophen 325 MG Tablet PO ×2 (06:30→12:28)
[2020-01-18 08:32] LABS: Hematocrit 32.1 % (40-54); Hemoglobin 10.3 g/dL (13.0-16.5); Mean Corp Hgb Conc 32.1 g/dL (32-36); Mean Corpuscular Hgb 30.4 pg (27.0-32.0); Mean Corpuscular Volume 94.7 fL (80-94); Mean Platelet Vol. 10.7 fl (6.2-12.0); POSITIVE COUNT YES; Platelet Count 83 K/mm3 (150-450); RBC Distribution Width CV 14.6 % (11.6-14.6); RBC Distribution Width SD 50.4 fl (35.1-43.9); Red Blood Count 3.39 M/mm3 (4.6-6.2)
[2020-01-18 08:54] LABS: Anion Gap 8 (5-15); BUN 17 mg/dL (7-18); BUN/Creat Ratio 14.4 RATIO (10-20); Calcium,Total 7.8 mg/dL (8.5-10.1); Chloride 105 mmol/L (98-107); Creatinine, Serum 1.18 mg/dL (0.70-1.30); EST Glomerular Filtration Rate 63 mL/min (>60); Est Glom Filt Rate - Afr Amer 76 mL/min (>60); Estimated Creatinine Clearance 49.84 ml/min; Glucose 138 mg/dL (74-106); Potassium 3.9 mmol/L (3.5-5.1); Sodium Level 139 mmol/L (136-145)
--- NOTE | 2020-01-18 09:47 | PCM.PN.BLA ---
Progress Note 84-year-old male was taken back to surgery yesterday for gross hematuria was found to have a very large prostate and bleeding from the prostate he is been on Plavix. Irrigated out all the clots. Cauterized the prostate but the bleeding would not stop so put a catheter in and is on continuous bladder irrigation this morning I irrigated and had some clots out to have the nurses irrigate his bladder every 4 hours manually we will continue with continuous bladder irrigation he may need prostate surgery if the bleeding does not stop. STROKE Vital Signs/Narrative: Vital Signs Temp Pulse Resp BP BP Pulse Ox 01/18/20 08:25 75 95/54 L 01/18/20 08:19 70 01/18/20 06:05 98.1 F 73 16 106/53 L 97
[2020-01-18] MEDS: Finasteride 5 MG Tablet PO (11:11)
[2020-01-18] MEDS: Carvedilol 3.125 MG TABLET PO ×2 (11:11→20:28)
[2020-01-18] MEDS: Tamsulosin HCl 0.4 MG Capsule PO (11:11)
[2020-01-18] MEDS: 0.9% Normal Saline 1,000 ML 50 ML IV (17:51)
[2020-01-18] MEDS: Atorvastatin Calcium 40 MG Tablet PO (20:28)
[2020-01-18] MEDS: Docusate Sodium 100 MG Capsule PO (20:28)
[2020-01-19] VITALS (7 sets, daily range): BP systolic 106–122; BP diastolic 49–60; PULSE 62–80; RESP 16–18; TEMP 36.8–37.2; O2SAT 94–97
--- NOTE | 2020-01-19 00:55 | NURSING ---
pt's postop check not completed; accidentally clicked d/t elevated bg but it was not done because it was close to shift clinical findings.
[2020-01-19 06:06] LABS: Hematocrit 27.4 % (40-54); Hemoglobin 8.9 g/dL (13.0-16.5); Mean Corp Hgb Conc 32.5 g/dL (32-36); Mean Corpuscular Hgb 30.4 pg (27.0-32.0); Mean Corpuscular Volume 93.5 fL (80-94); Mean Platelet Vol. 10.4 fl (6.2-12.0); POSITIVE COUNT YES; Platelet Count 64 K/mm3 (150-450); RBC Distribution Width CV 14.5 % (11.6-14.6); RBC Distribution Width SD 49.4 fl (35.1-43.9); Red Blood Count 2.93 M/mm3 (4.6-6.2); White Blood Count 5.9 K/mm3 (4.4-11.0)
[2020-01-19 06:16] LABS: Scan Indicated on CBC? Y/N YES- FLAGS NOTED
[2020-01-19 06:27] LABS: Anion Gap 4 (5-15); BUN 16 mg/dL (7-18); BUN/Creat Ratio 15.5 RATIO (10-20); Calcium,Total 7.9 mg/dL (8.5-10.1); Chloride 109 mmol/L (98-107); Creatinine, Serum 1.03 mg/dL (0.70-1.30); EST Glomerular Filtration Rate 74 mL/min (>60); Est Glom Filt Rate - Afr Amer 89 mL/min (>60); Estimated Creatinine Clearance 57.09 ml/min; Glucose 122 mg/dL (74-106); Potassium 3.8 mmol/L (3.5-5.1); Sodium Level 141 mmol/L (136-145)
[2020-01-19] MEDS: Levothyroxine 75 MCG Tablet PO (07:10)
[2020-01-19] MEDS: Cefazolin 1 GM/50 ML BAG IV ×3 (07:10→21:32)
[2020-01-19] MEDS: Docusate Sodium 100 MG Capsule PO ×2 (08:59→21:32)
[2020-01-19] MEDS: Carvedilol 3.125 MG TABLET PO ×2 (08:59→21:32)
[2020-01-19] MEDS: Tamsulosin HCl 0.4 MG Capsule PO (08:59)
[2020-01-19] MEDS: Finasteride 5 MG Tablet PO (08:59)
--- NOTE | 2020-01-19 09:56 | PCM.PN.BLA ---
Progress Note 84-year-old male came in with bleeding hemorrhaging from his prostate we continued bladder irrigation finally had settled down he is on light irrigation the nurses have been flushing it we can stop the flushing at this point. But continue with irrigation hopefully once the bleeding stops will get the catheter out tomorrow and see if he can urinate spontaneously go home tomorrow. STROKE Vital Signs/Narrative: Vital Signs Temp Pulse Resp BP Pulse Ox 01/19/20 08:48 98.3 F 69 18 106/57 L 94
[2020-01-19] MEDS: Losartan Potassium 25 MG Tablet PO (12:37)
[2020-01-19] MEDS: 0.9% Normal Saline 1,000 ML 50 ML IV ×2 (13:57→13:59)
[2020-01-19] MEDS: Acetaminophen 325 MG Tablet PO ×2 (13:59→21:38)
[2020-01-19] MEDS: Atorvastatin Calcium 40 MG Tablet PO (21:32)
[2020-01-20 02:30] VITALS: BP 122/63; PULSE 63; RESP 16; TEMP 36.9; O2SAT 94
[2020-01-20] MEDS: Cefazolin 1 GM/50 ML BAG IV (06:01)
[2020-01-20] MEDS: Levothyroxine 75 MCG Tablet PO (06:02)
--- NOTE | 2020-01-20 07:29 | DCINST_ITS ---
Discharge Diet: Light diet - advance as tolerated Discharge Activity: Return to Normal Activity Call your doctor if your incision/area has: Continuous Slow Oozing, Sudden Increased Bleeding Suture Line Care: Avoid Pulling/Pushing, Avoid Pinching/Bending Allergies/Adverse Reactions: Allergies Penicillins Allergy (Verified 01/16/20 13:19) Hives tree and shrub pollen Allergy (Verified 01/16/20 13:19) Other lisinopril Adverse Reaction (Mild, Verified 01/16/20 13:19) cough Medications to take at Discharge Tamsulosin HCl [Flomax] 0.4 mg PO DAILY@1000 04/05/13 levothyroxine 75 mcg tablet 75 mcg PO DAILY 04/23/18 atorvastatin 40 mg tablet 40 mg PO QHS #90 tab 05/24/18 losartan 25 mg tablet 25 mg PO DAILY #90 tab 04/23/19 carvedilol 3.125 mg tablet 3.125 mg PO BID #180 tab 07/26/19 Dutasteride [Avodart] 0.5 mg PO DAILY #90 cap 01/20/20 Primary Care Physician: Wagner Gr MD [Primary Care Provider] - Test Results: Test results from this visit will be discussed in further detail at your follow- up appointment, if applicable. Please Follow Up With: Andres Peres MD When: in 2 weeks, please call to make an appointment.
--- NOTE | 2020-01-20 07:31 | PCM.DC.SUM ---
Discharge Date and Diagnosis - Problem List Patient Problems: Active and Suspected Problems (Last Reviewed 01/16/20 @ 15:[address] Andres Peres MD) Hematuria (Acute) Bladder mass (Acute) Date of Admission: 01/16/20 Date of Discharge: 01/20/20 - Primary Discharge Diagnosis Acute Problems: Active Problems (Last Reviewed 01/16/20 @ 15:[address] Andres Peres MD) Hematuria (Acute) Bladder mass (Acute) - Secondary Discharge Diagnosis Chronic Problems: Chronic Problems (Last Reviewed 01/16/20 @ 15:[address] Andres Peres MD) Left ventricular systolic dysfunction (Chronic) per echo 02/23/2016 History of left heart catheterization (Chronic) 02/22/2016 Acute Anterior STEMI;LHC, PTCA and ANDRY X2 to proximal and mid LAD, POBA of ostium of dx per Dr. King, [facility] Stented coronary artery (Chronic) 02/22/2016 Acute Anterior STEMI; PTCA and ANDRY X2 to proximal and mid LAD, POBA of ostium of dx History of lateral wall myocardial infarction (Chronic) 02/22/2016 Atherosclerotic heart disease of [place] coronary artery without angina pectoris (Chronic) 02/22/2016 Acute lateral STEMI; PTCA and ANDRY X2 to proximal and mid LAD, POBA of ostium of dx Hyperlipidemia (Chronic) Hypertension (Chronic) Type 2 diabetes mellitus (Chronic) Hospital Course and Treatment Operations: None, - - Cystoscopy evacuation of blood clots cauterization of prostatic hemorrhaging Procedures: None Summary of Care Provided: The patient is a 84 year old male with a very large prostate on Plavix for history of cardiac stents about 3 years ago presented with gross hematuria and bleeding from his prostate is taken back to the operating room evacuate out the blood clots cauterized the prostatic area for bleeding he was then on continuous bladder irrigation. Urine is finally stopped bleeding catheter will be removed today he will go home on tamsulosin also can start him on Avodart 0.5 mg daily. He ought to hold his Plavix because of the risk of bleeding. And he will be discharged home today. Patient Problems: Active and Suspected Problems (Last Reviewed 01/16/20 @ 15:[address] Andres Prees MD) Hematuria (Acute) Bladder mass (Acute) - Physical Exam Vitals/I&O's: Vital Signs Temp Pulse Resp BP Pulse Ox 98.4 F 63 16 122/63 H 94 01/20/20 02:30 01/20/20 02:30 01/20/20 02:30 01/20/20 02:30 01/20/20 02:30 Oxygen Delivery Method Room Air Weight: 85.275 kg Body Mass Index (BMI) 26.9 Intake and Output for Last 24 Hours 01/19/20 01/19/20 01/20/20 00:59 23:59 23:59 Intake Total 50 / 50 Output Total Balance 50 / 50 General: Alert, Oriented x3, Cooperative HEENT: Atraumatic, PERRLA, EOMI, Normocephalic Neck: Supple, No JVD, Negative Carotid Bruits Lungs: Clear to auscultation, Normal air movement Cardiovascular: Regular rate, No murmurs Abdomen: Bowel Sounds Present, Soft, Non Tender Extremities: No edema, Capillary Refill Less than 3 Seconds Skin: No rashes, No breakdown Musculoskeletal: No Tenderness to Palpation of Joints or Extremities Neurological: Cranial nerves II-XII grossly intact Psych/Mental Status: Normal Affect, Appropriate Microbiology Past 72 Hours 01/16/20 14:10 Urine, Clean Catch Urine Culture - Final Culture exhibits no growth. 01/17/20 09:55 Mucosa - Nose - Final Current Medications Acetaminophen (Acetaminophen 325 Mg Tablet) 325 - 650 mg PO Q4H PRN PRN PRN Reason: pain score 1-10/fever/headache Last Admin: 01/19/20 21:38 Dose: 325 mg Documented by: Hydrocodone Bitart/Acetaminophen (Hydrocodone Bitartrate/Apap 5/325 Tablet) 1 - 2 tablet PO Q6H PRN PRN PRN Reason: Pain Score 1-10 Last Admin: 01/17/20 19:04 Dose: 2 tablet Documented by: Atorvastatin Calcium (Atorvastatin Calcium 40 Mg Tablet) 40 mg PO QHS MICHAEL Last Admin: 01/19/20 21:32 Dose: 40 mg Documented by: Belladonna Alkaloids/Opium (Opium/Belladonna Alkaloids 60 Mg/15 Mg Suppository) 60 mg RECTAL Q6H PRN PRN PRN Reason: BLADDER SPASMS Last Admin: 01/20/20 06:01 Dose: 60 mg Documented by: Carvedilol (Carvedilol 3.125 Mg Tablet) 3.125 mg PO BID [facility] Last Admin: 01/19/20 21:32 Dose: 3.125 mg Documented by: Docusate Sodium (Docusate Sodium 100 Mg Capsule) 100 mg PO BID [facility] Last Admin: 01/19/20 21:32 Dose: 100 mg Documented by: Finasteride (Finasteride 5 Mg Tablet) 5 mg PO DAILY [facility] Last Admin: 01/19/20 08:59 Dose: 5 mg Documented by: Sodium Chloride () 250 mls @ 15 mls/hr IV .[id number] PRN PRN Reason: Saline Flush Sodium Chloride () 1,000 mls @ 50 mls/hr IV .Q20H [facility] Last Infusion: 01/19/20 22:02 Dose: 50 mls/hr Documented by: Cefazolin Sodium () 1 gm in 50 mls @ 100 mls/hr IV Q8 [facility] Last Infusion: 01/20/20 06:31 Dose: Infused Documented by: Levothyroxine Sodium (Levothyroxine 75 Mcg Tablet) 75 mcg PO DAILY@0600 [facility] Last Admin: 01/20/20 06:02 Dose: 75 mcg Documented by: Losartan Potassium (Losartan Potassium 25 Mg Tablet) 25 mg PO DAILY [facility] Last Admin: 01/19/20 12:37 Dose: 25 mg Documented by: Sodium Chloride (0.9% Saline Lock 10 Ml Syringe) 10 - 40 ml IV UD PRN PRN Reason: SALINE FLUSH Tamsulosin HCl (Tamsulosin Hcl 0.4 Mg Capsule) 0.4 mg PO DAILY@1000 [facility] Last Admin: 01/19/20 08:59 Dose: 0.4 mg Documented by: Discharge Diet: Light diet - advance as tolerated Discharge Activity: Return to Normal Activity Call your doctor if your incision/area has: Continuous Slow Oozing, Sudden Increased Bleeding Suture Line Care: Avoid Pulling/Pushing, Avoid Pinching/Bending Home Medications: Medications to take at Discharge Tamsulosin HCl [Flomax] 0.4 mg PO DAILY@1000 04/05/13 levothyroxine 75 mcg tablet 75 mcg PO DAILY 04/23/18 atorvastatin 40 mg tablet 40 mg PO QHS #90 tab 05/24/18 losartan 25 mg tablet 25 mg PO DAILY #90 tab 04/23/19 carvedilol 3.125 mg tablet 3.125 mg PO BID #180 tab 07/26/19 Dutasteride [Avodart] 0.5 mg PO DAILY #90 cap 01/20/20 Following Prescriptions Were Given to Patient: Dutasteride [Avodart] 0.5 mg PO DAILY #90 cap Transmission Status: Pending to [facility] Primary Care Physician: Wagner Gr MD [Primary Care Provider] - Please Follow Up With: Andres Peres MD When: in 2 weeks, please call to make an appointment. Medical Necessity - Tobacco Use Smoking Status: Never smoker Meaningful Use Info Meaningful Use Diagnoses (Choose all that apply): None applicable
[2020-01-20] MEDS: Carvedilol 3.125 MG TABLET PO (08:07)
[2020-01-20] MEDS: Docusate Sodium 100 MG Capsule PO (08:07)
[2020-01-20] MEDS: Tamsulosin HCl 0.4 MG Capsule PO (08:08)
[2020-01-20] MEDS: Finasteride 5 MG Tablet PO (08:08)
[2020-01-20] MEDS: Losartan Potassium 25 MG Tablet PO (08:08)
[2020-01-20 08:30] VITALS: BP 111/61; PULSE 70; RESP 18; TEMP 37.3; O2SAT 95
--- NOTE | 2020-01-21 15:22 | CASEMGMT ---
FREDI MEDINA Discharge Follow-up Phone Call: JASSONGamaliel: Enmanuel Strata: 3 Call Date: 01/21/20 Discharge Date: 01/20/20 Time of Call: 1520 Duration: 3 min Admitting Diagnosis: Hematuria FREDI MEDINA completed follow-up phone call after recent hospitalization. Patient states he is doing well and had no questions or concerns regarding discharge instructions. Patient states he has follow-up appts scheduled. Patient had no further questions or concerns at this time.
== END 2020-01-20 13:43 | disposition home or self-care (01) | DRG 700 ==
LOC: ED 13:50 → MS3 15:51
PROVIDERS: Anesthesiology; Admitting Provider Urology; Emergency Provider Emergency Medicine; PCP Family Medicine; Visit Provider Urology
PROC: 0TBB8ZX Excision of Bladder, Via Natural or Artificial Opening Endoscopic, Diagnostic (ICD-10-PCS; principal; 2020-01-17 15:50)
DX: N32.89 Other specified disorders of bladder (principal); R31.0 Gross hematuria; R10.30 Lower abdominal pain, unspecified; N40.0 Benign prostatic hyperplasia without lower urinary tract symptoms; E78.5 Hyperlipidemia, unspecified; Z95.5 Presence of coronary angioplasty implant and graft; Z79.02 Long term (current) use of antithrombotics/antiplatelets; I25.2 Old myocardial infarction; I25.10 Atherosclerotic heart disease of native coronary artery without angina pectoris; I11.0 Hypertensive heart disease with heart failure; I50.9 Heart failure, unspecified; Z87.891 Personal history of nicotine dependence; Z79.890 Hormone replacement therapy; Z82.49 Family history of ischemic heart disease and other diseases of the circulatory system; Z83.3 Family history of diabetes mellitus; Z85.72 Personal history of non-Hodgkin lymphomas; Z90.49 Acquired absence of other specified parts of digestive tract; E11.9 Type 2 diabetes mellitus without complications; K40.90 Unilateral inguinal hernia, without obstruction or gangrene, not specified as recurrent
CPT/HCPCS: 36415; 74176; 80048; 81001; 83036; 84443; 85025; 85027; 85610; 85730; 86850; 86900; 86901; 87086; 87426; 93005; 99284; J7030; J7040; A4216; J2405

== ENCOUNTER 2020-01-31 10:33 | Day surgery (SDC) | payer MEDICARE, SELFPAY ==
[2020-01-17 10:35] VITALS: BMI 26.9
[2020-01-30 11:08] LABS: Hematocrit 30.8 % (40-54); Hemoglobin 9.7 g/dL (13.0-16.5); Mean Corp Hgb Conc 31.5 g/dL (32-36); Mean Corpuscular Hgb 30.6 pg (27.0-32.0); Mean Corpuscular Volume 97.2 fL (80-94); Mean Platelet Vol. 9.4 fl (6.2-12.0); Platelet Count 136 K/mm3 (150-450); RBC Distribution Width CV 15.1 % (11.6-14.6); RBC Distribution Width SD 53.8 fl (35.1-43.9); Red Blood Count 3.17 M/mm3 (4.6-6.2)
[2020-01-31] VITALS (13 sets, daily range): BP systolic 91–145; BP diastolic 48–70; PULSE 43–65; RESP 16–18; TEMP 36.2–37.1; O2SAT 96–100; BMI 26.3; BMI 26.4
--- NOTE | 2020-01-31 | PROS_PTH ---
PATIENT: ERMELINDA DIEGO LOC: [facility] U#:[id number] AGE/SX: 84/M ROOM: RE01/31/[address]: Dr. Andres Peres MD : [id number] BED: DIS: 02/02/2020 SPEC #: [id number] RECD: 01/31/20 15:07 STATUS: TANNER REAurea #: [id number] RHONDA: 01/31/20 00:[address]: Andres Peres DEPT: SURGICAL PATHOLOGY RECD BY: Billy Hurley ENTERED: 02/03/20 10:19 SP TYPE: TURP OTHR DR: Dr. Wagner Gr MD Tissues: Prostate, NOS Procedures: Surgery Specimen Level IV HEADER OPERATION: Cysto, TUR prostate, [employer] PRE-OP DIAGNOSIS: Increased BPH and obstruction TISSUE SUBMITTED: Prostate pieces MICROSCOPIC DIAGNOSIS Prostate, transurethral resection: Benign nodular hyperplasia, glandular and stromal types. Focal squamous metaplasia. Chronic inflammation. AM:crow 02/04/20 MICROSCOPIC DESCRIPTION Slides are reviewed. GROSS DESCRIPTION Received is one container labeled with the patient's name and designated prostate pieces. The specimen consists of multiple irregular fragments of pink-lamb, rubbery, soft tissue that in aggregate weigh 32.2 gm and measure in aggregate 7 x 7 x 3 cm. [employer] Analyst tissue is submitted in ten cassettes. / SJ:crow 02/03/20 TC:3 CPT: 24710
[2020-01-31] MEDS: Lactated Ringers 1,000 ML 100 ML IV ×2 (11:32→14:31)
[2020-01-31 11:51] LABS: Bedside Glucose 133 mg/dL (70-110)
[2020-01-31] MEDS: Cefazolin 2 GM in 0.9% Normal Saline 100 ML IV (12:32)
--- NOTE | 2020-01-31 14:25 | PCM.HP.STD ---
History of Present Illness Date of Admission: 01/31/20 Chief Complaint: BPH with obstruction The patient is a 84 year old male with a history of large prostate with obstructive voiding symptoms also recurrent bleeding. Past Medical History Past Medical History (Chronic Problems): Chronic Problems (Last Reviewed 01/16/20 @ 15:[address] Andres Peres MD) Left ventricular systolic dysfunction (Chronic) per echo 02/23/2016 History of left heart catheterization (Chronic) 02/22/2016 Acute Anterior STEMI;LHC, PTCA and ANDRY X2 to proximal and mid LAD, POBA of ostium of dx per Dr. King, [facility] Stented coronary artery (Chronic) 02/22/2016 Acute Anterior STEMI; PTCA and ANDRY X2 to proximal and mid LAD, POBA of ostium of dx History of lateral wall myocardial infarction (Chronic) 02/22/2016 Atherosclerotic heart disease of [place] coronary artery without angina pectoris (Chronic) 02/22/2016 Acute lateral STEMI; PTCA and ANDRY X2 to proximal and mid LAD, POBA of ostium of dx Hyperlipidemia (Chronic) Hypertension (Chronic) Type 2 diabetes mellitus (Chronic) Medical History: Medical History (Last Reviewed 01/31/20 @ 14:[address] Andres Peres MD) Left ventricular systolic dysfunction (Chronic) I51.9 per echo 02/23/2016 History of lateral wall myocardial infarction (Chronic) I25.2 02/22/2016 Atherosclerotic heart disease of [place] coronary artery without angina pectoris (Chronic) I25.10 02/22/2016 Acute lateral STEMI; PTCA and ANDRY X2 to proximal and mid LAD, POBA of ostium of dx Hyperlipidemia (Chronic) E78.5 Hypertension (Chronic) I10 Type 2 diabetes mellitus (Chronic) E11.9 Aneurysm of infrarenal abdominal aorta I71.4 Lymphoma C85.90 Allergies Penicillins Allergy (Verified 01/29/20 10:11) Hives tree and shrub pollen Allergy (Verified 01/29/20 10:11) Other lisinopril Adverse Reaction (Mild, Verified 01/29/20 10:11) cough Home Medications: Ambulatory Orders Medication Instructions Recorded Tamsulosin HCl [Flomax] 0.4 mg PO DAILY@1000 04/05/13 levothyroxine 75 mcg tablet 75 mcg PO DAILY 04/23/18 atorvastatin 40 mg tablet 40 mg PO QHS #90 tab 05/24/18 Dutasteride [Avodart] 0.5 mg PO DAILY #90 cap 01/20/20 Carvedilol 3.125 mg PO BID 01/29/20 Losartan Potassium [Cozaar] 25 mg PO DAILY 01/29/20 Surgical History: Surgical History (Last Reviewed 12/27/19 @ 13:55 by Marlene BENOIT, PA) History of left heart catheterization (Chronic) Z98.890 02/22/2016 Acute Anterior STEMI;LHC, PTCA and ANDRY X2 to proximal and mid LAD, POBA of ostium of dx per Dr. King, [facility] Stented coronary artery (Chronic) Z95.5 02/22/2016 Acute Anterior STEMI; PTCA and ANDRY X2 to proximal and mid LAD, POBA of ostium of dx History of appendectomy Z90.49 Surgical History: appendectomy, - - Lymph node biopsy secondary to lymphoma Psychiatric History: No pertinent psych hx Smoking Status: Former smoker - *Family History Maternal Family History: Family History (Last Reviewed 12/27/19 @ 13:55 by Marlene BENOIT, PA) Father CAD (coronary artery disease) Myocardial infarction Sudden cardiac Mother Diabetes History Items: No pertinent history Paternal Family History: Family History (Last Reviewed 12/27/19 @ 13:55 by Marlene BENOIT, PA) Father CAD (coronary artery disease) Myocardial infarction Sudden cardiac Mother Diabetes History Items: Heart Disease, No pertinent history Review of Systems Constitutional: Denies: Chills, Fever, Weight Change HEENT: Denies: Head Aches, Sinus Congestion, Sinus Drainage Cardiovascular: Denies: Chest Pain, Palpitations Respiratory: Denies: Cough, Shortness of breath at rest, Sputum production Gastrointestinal: Denies: Abdominal Pain, Nausea, Vomiting Genitourinary: Denies: Dysuria Musculoskeletal: Denies: Joint Pain, Joint Tenderness Skin: Denies: Rash, Wounds Neurological: Denies: Numbness, Tingling, Focal weakness Psychiatric: Denies: Anxiety, Depression, Homicidal Ideations, Suicidal Ideations Hematologic/ Lymphatic: Denies: Easy Bruising, Easy Bleeding VTE Information - Inpt Only VTE Present on Admission: No - Physical Exam Vitals/I&O's: Vital Signs Temp Pulse Resp BP Pulse Ox 98.8 F 58 L 18 132/59 H 98 01/31/20 11:18 01/31/20 11:18 01/31/20 11:18 01/31/20 11:18 01/31/20 11:18 Oxygen Delivery Method Room Air Weight: 83.3 kg Body Mass Index (BMI) 26.3 Intake and Output for Last 24 Hours 01/29/20 01/30/20 01/31/20 23:59 23:59 23:59 Intake Total 110 / 110 Balance 110 / 110 General: Alert, Oriented x3, Cooperative HEENT: Atraumatic, PERRLA, EOMI, Normocephalic Neck: Supple, No JVD, Negative Carotid Bruits Lungs: Clear to auscultation, Normal air movement Cardiovascular: Regular rate, No murmurs Abdomen: Bowel Sounds Present, Soft, Non Tender Extremities: No edema, Capillary Refill Less than 3 Seconds Skin: No rashes, No breakdown Musculoskeletal: No Tenderness to Palpation of Joints or Extremities Neurological: Cranial nerves II-XII grossly intact Psych/Mental Status: Normal Affect, Appropriate Microbiology Past 72 Hours 01/30/20 10:32 Interface Orders SARS-CoV-2 Antigen (Rapid) - Final Laboratory Results 01/31/20 11:15: POC Glucose 133 H Current Medications Cefazolin Sodium 2 gm/ Sodium (Chloride) 110 mls @ 150 mls/hr IV PREOP ONE Stop: 01/31/20 14:48 Last Infusion: 01/31/20 14:22 Dose: Infused Documented by: Lactated Ringer's () 1,000 mls @ 100 mls/hr IV .Q10H MICHAEL Last Admin: 01/31/20 11:32 Dose: 100 mls/hr Documented by: Assessment/Plan All Active Problems (Last Reviewed 01/16/20 @ 15:[address] Andres Peres MD) Hematuria (Acute) Bladder mass (Acute) Sepsis (Acute) Urinary tract infection (Acute) Plan to proceed with a TURP.
--- NOTE | 2020-01-31 14:26 | PCM.DC.URO ---
Discharge Diet: Light diet - advance as tolerated, Cochran diet Discharge Activity: Return to Normal Activity Suture Line Care: Avoid Pulling/Pushing, Avoid Pinching/Bending Catheter: Mills to leg bag, Mills to large bag Instructions: Transurethral Resection of the Prostate (TURP): Home Recovery Allergies/Adverse Reactions: Allergies Penicillins Allergy (Verified 01/29/20 10:11) Hives tree and shrub pollen Allergy (Verified 01/29/20 10:11) Other lisinopril Adverse Reaction (Mild, Verified 01/29/20 10:11) cough Medications to take at Discharge Tamsulosin HCl [Flomax] 0.4 mg PO DAILY@1000 04/05/13 levothyroxine 75 mcg tablet 75 mcg PO DAILY 04/23/18 atorvastatin 40 mg tablet 40 mg PO QHS #90 tab 05/24/18 Dutasteride [Avodart] 0.5 mg PO DAILY #90 cap 01/20/20 Carvedilol 3.125 mg PO BID 01/29/20 Losartan Potassium [Cozaar] 25 mg PO DAILY 01/29/20 Primary Care Physician: Wagner Gr MD [Primary Care Provider] - Test Results: Test results from this visit will be discussed in further detail at your follow-up appointment, if applicable. Please Follow Up With: Andres Peres MD When: in 2 weeks, please call to make an appointment.
--- NOTE | 2020-01-31 14:28 | PCM.OPRPT ---
Report of Operation Date of Procedure: 01/31/20 Pre-Operative Diagnosis: BPH with obstruction Post-Operative Diagnosis: Same Surgery/Procedure Performed:: Transurethral resection of prostate Description of Surgical Findings:: 84-year-old male was taken back to the operating room after smooth induction of general anesthesia he was placed in dorsolithotomy position. The penis and testicles were prepped and draped in usual sterile fashion. I then went into the bladder with a 26 [place] continuous-flow resectoscope identified the verumontanum, identified the bladder. Identified the left and right ureteral orifice. I then switched over to the resectoscope. I resected the median lobe. I resected the right lobe of the prostate. Resect the left lobe of the prostate surgery took about an hour and a half and is a very large prostate. After resecting all this tissue I then used the button to smooth out the resection and very carefully resected the apical tissue to avoid any flapping tissue. I did a flow test he had nice wide open flow. Look backend at the sphincter the sphincter looked intact. The left and right ureter orifice were intact. And after the long resection of the prostate again the surgery took an hour and a half to resect a very large prostate. Put a three-way catheter in the bladder and continuous irrigation is taken back to PACU in good condition. Type of Anesthesia:: General Drains: 3 way camacho - Admit VTE Documentation VTE Present on Admission: No VTE Mechan Device Prophylaxis: SCD's
[2020-01-31 15:31] LABS: Bedside Glucose 123 mg/dL (70-110)
[2020-01-31] MEDS: 0.9% Normal Saline 1,000 ML 75 ML IV (17:15)
[2020-01-31] MEDS: Ciprofloxacin 400 MG/200 ML BAG 200 MG IV (19:53)
[2020-01-31] MEDS: Docusate Sodium 100 MG Capsule 200 MG PO (21:23)
[2020-01-31] MEDS: Atorvastatin Calcium 40 MG Tablet PO (21:23)
[2020-01-31] MEDS: Carvedilol 3.125 MG TABLET PO (21:23)
[2020-02-01 01:17] VITALS: BMI 26.4
[2020-02-01 01:30] VITALS: BP 95/50; PULSE 57; RESP 18; TEMP 36.8; O2SAT 98
[2020-02-01 05:17] VITALS: BMI 26.4
[2020-02-01] MEDS: Levothyroxine 75 MCG Tablet PO (06:36)
[2020-02-01] MEDS: 0.9% Normal Saline 1,000 ML 75 ML IV ×2 (07:29→22:06)
[2020-02-01 07:52] VITALS: BP 112/64; PULSE 61; RESP 18; TEMP 36.9; O2SAT 97
[2020-02-01] MEDS: Ciprofloxacin 400 MG/200 ML BAG 200 MG IV (08:00)
[2020-02-01 09:18] VITALS: BP 117/54; PULSE 97; RESP 18; TEMP 37.2; O2SAT 95
[2020-02-01] MEDS: Finasteride 5 MG Tablet PO (09:22)
[2020-02-01] MEDS: Docusate Sodium 100 MG Capsule 200 MG PO ×2 (09:22→22:05)
[2020-02-01] MEDS: Losartan Potassium 25 MG Tablet PO (09:22)
[2020-02-01] MEDS: Carvedilol 3.125 MG TABLET PO ×2 (09:22→22:06)
[2020-02-01] MEDS: Pantoprazole Sodium 40 MG Tablet PO (09:25)
[2020-02-01 09:30] VITALS: BMI 26.4
[2020-02-01 13:20] VITALS: BP 106/54; PULSE 68; RESP 18; TEMP 36.9; O2SAT 95
[2020-02-01 13:35] VITALS: BMI 26.4
[2020-02-01 16:33] VITALS: BMI 26.4
[2020-02-01 19:54] VITALS: BP 116/58; PULSE 66; RESP 18; TEMP 37.4; O2SAT 92
[2020-02-01] MEDS: Atorvastatin Calcium 40 MG Tablet PO (22:05)
[2020-02-02 02:45] VITALS: BP 131/60; PULSE 66; RESP 18; TEMP 36.8; O2SAT 93
[2020-02-02] MEDS: Levothyroxine 75 MCG Tablet PO (06:19)
[2020-02-02 08:00] VITALS: BP 154/63; PULSE 64; RESP 20; TEMP 37; O2SAT 99
[2020-02-02 08:20] VITALS: PULSE 64; RESP 20; O2SAT 99
--- NOTE | 2020-02-02 10:39 | PCM.PROGNOTE ---
Subjective: Doing well is been able to urinate okay bladder control is good and urine is clear with no clots. - Physical Exam Vitals/I&O's: Vital Signs Temp Pulse Resp BP Pulse Ox 98.6 F 64 20 H 154/63 H 99 02/02/20 08:00 02/02/20 08:20 02/02/20 08:20 02/02/20 08:00 02/02/20 08:20 Oxygen Flow Rate (L/min) 2 Oxygen Delivery Method Room Air Weight: 83.3 kg Body Mass Index (BMI) 26.3 Finger Stick Blood Glucose 123 Intake and Output for Last 24 Hours 01/31/20 02/01/20 02/02/20 23:59 23:59 23:59 Intake Total 1789.58 / 1789.58 4203.75 / 4203.75 1237.5 / 1237.5 Output Total 2800 / 2800 4750 / 4750 1200 / 1200 Balance -1010.42 / -1010.42 -546.25 / -546.25 37.5 / 37.5 General: Alert, Oriented x3, Cooperative HEENT: Atraumatic, PERRLA, EOMI, Normocephalic Neck: Supple, No JVD, Negative Carotid Bruits Lungs: Clear to auscultation, Normal air movement Cardiovascular: Regular rate, No murmurs Abdomen: Bowel Sounds Present, Soft, Non Tender Extremities: No edema, Capillary Refill Less than 3 Seconds Skin: No rashes, No breakdown Musculoskeletal: No Tenderness to Palpation of Joints or Extremities Neurological: Cranial nerves II-XII grossly intact Psych/Mental Status: Normal Affect, Appropriate Microbiology Past 72 Hours 01/30/20 10:32 Interface Orders SARS-CoV-2 Antigen (Rapid) - Final Current Medications Acetaminophen (Acetaminophen 325 Mg Tablet) 325 mg PO Q4H PRN PRN PRN Reason: Pain Score 1-10 Al Hydroxide/Mg Hydroxide (Mag Hydrox/Al Hydrox/Simeth 30 Ml Udc) 30 ml PO Q4H PRN PRN PRN Reason: Heartburn Atorvastatin Calcium (Atorvastatin Calcium 40 Mg Tablet) 40 mg PO QHS [facility] Last Admin: 02/01/20 22:05 Dose: 40 mg Documented by: Carvedilol (Carvedilol 3.125 Mg Tablet) 3.125 mg PO BID [facility] Last Admin: 02/01/20 22:06 Dose: 3.125 mg Documented by: Docusate Sodium (Docusate Sodium 100 Mg Capsule) 200 mg PO BID [facility] Last Admin: 02/01/20 22:05 Dose: 200 mg Documented by: Finasteride (Finasteride 5 Mg Tablet) 5 mg PO DAILY [facility] Last Admin: 02/01/20 09:22 Dose: 5 mg Documented by: Ibuprofen (Ibuprofen 600 Mg Tablet) 600 mg PO Q6H PRN PRN PRN Reason: Pain Score 1-10 Levothyroxine Sodium (Levothyroxine 75 Mcg Tablet) 75 mcg PO DAILY@0600 [facility] Last Admin: 02/02/20 06:19 Dose: 75 mcg Documented by: Losartan Potassium (Losartan Potassium 25 Mg Tablet) 25 mg PO DAILY [facility] Last Admin: 02/01/20 09:22 Dose: 25 mg Documented by: Pantoprazole Sodium (Pantoprazole Sodium 40 Mg Tablet) 40 mg PO DAILY [facility] Last Admin: 02/01/20 09:25 Dose: 40 mg Documented by: Sodium Chloride (0.9% Saline Lock 10 Ml Syringe) 10 - 40 ml IV UD PRN PRN Reason: SALINE FLUSH Medical Necessity - Tobacco Use Smoking Status: Former smoker Assessment/Plan All Active Problems (Last Reviewed 01/31/20 @ 14:[address] Andres Peres MD) Hematuria (Acute) Bladder mass (Acute) Sepsis (Acute) Urinary tract infection (Acute) Status post TURP discharge home today.
[2020-02-02] MEDS: Losartan Potassium 25 MG Tablet PO (10:53)
[2020-02-02] MEDS: Finasteride 5 MG Tablet PO (10:53)
[2020-02-02] MEDS: Pantoprazole Sodium 40 MG Tablet PO (10:53)
[2020-02-02] MEDS: Carvedilol 3.125 MG TABLET PO (10:53)
[2020-02-02 14:00] VITALS: PULSE 57
[2020-02-02 14:11] VITALS: BP 110/58; PULSE 57; RESP 20; TEMP 36.7; O2SAT 98
== END 2020-02-02 14:30 | disposition home or self-care (01) ==
LOC: SDC 10:34 → AC 10:34 → MS3 02-03 09:41
PROVIDERS: Anesthesiology; PCP Family Medicine; Referring Provider Urology; Visit Provider Urology
PROC: (CPT 52601; principal; 2020-01-31 12:40)
DX: N40.1 Benign prostatic hyperplasia with lower urinary tract symptoms (principal); N13.8 Other obstructive and reflux uropathy; N41.1 Chronic prostatitis; R31.9 Hematuria, unspecified; Z20.828 Contact with and (suspected) exposure to other viral communicable diseases; I25.10 Atherosclerotic heart disease of native coronary artery without angina pectoris; E11.9 Type 2 diabetes mellitus without complications; I10 Essential (primary) hypertension; E78.5 Hyperlipidemia, unspecified; C91.91 Lymphoid leukemia, unspecified, in remission; Z79.899 Other long term (current) drug therapy; I25.2 Old myocardial infarction; Z87.891 Personal history of nicotine dependence; Z95.5 Presence of coronary angioplasty implant and graft
CPT/HCPCS: 00914; 52601; 36415; 82962; 85027; 86850; 86900; 86901; 87426; 88305; C9803; J7030; J7120; J0744; J2405

== ENCOUNTER 2020-03-06 12:25 | Emergency (ER) | payer MEDICARE, SELFPAY ==
[2020-01-31 17:29] VITALS: BMI 26.3
[2020-03-06 12:29] VITALS: BP 122/65; PULSE 76; RESP 14; TEMP 37.3; O2SAT 97; BMI 27.3
--- NOTE | 2020-03-06 12:35 | ED.RN ---
CAROL DAUGHTER [phone]
--- NOTE | 2020-03-06 12:49 | ED.VIS.GEN ---
History of Present Illness Informant: Patient Onset: Yesterday Context: Gradual Onset Timing: Continuous Quality: Urinary frequency and urgency Location: Urinary Current Severity: Severe Maximum Severity: Severe Worsened by: Urination Relieved by: Nothing Associated Symptoms: Fevers Narrative: 84-year-old male presents with urinary frequency and urgency for the last several days and a fever that started yesterday. Patient denies any vomiting or diarrhea denies any abdominal pain denies chest pain or shortness of breath denies cough denies headache or neck pain he is not lightheaded or dizzy he had prostate surgery last month TURP, but up until yesterday he has been doing well. Prior similar symptoms: No Recent Illness/Hospitalization: No <David Coello - Last Filed: 03/06/20 14:56> <Kalpesh De Souza - Last Filed: 03/06/20 15:04> Chief Complaint: Complaint Past Medical History Prior records reviewed: Yes Past Medical History: - - CAD hypertension hyperlipidemia BPH Surgical History: appendectomy, - - Lymph node biopsy secondary to lymphoma Smoking Status: Unknown if ever smoked - Family History Maternal Family History: Family History (Last Reviewed 12/27/19 @ 13:55 by Marlene BENOIT, PA) Father CAD (coronary artery disease) Myocardial infarction Sudden cardiac Mother Diabetes Family History: Reports: No pertinent history Paternal Family History: Family History (Last Reviewed 12/27/19 @ 13:55 by Marlene BENOIT, PA) Father CAD (coronary artery disease) Myocardial infarction Sudden cardiac Mother Diabetes Family History: Reports: Heart Disease, No pertinent history <David Coello - Last Filed: 03/06/20 14:56> - Family History Maternal Family History: Family History (Last Reviewed 12/27/19 @ 13:55 by Marlene BENOIT, PA) Father CAD (coronary artery disease) Myocardial infarction Sudden cardiac Mother Diabetes Paternal Family History: Family History (Last Reviewed 12/27/19 @ 13:55 by Marlene BENOIT, PA) Father CAD (coronary artery disease) Myocardial infarction Sudden cardiac Mother Diabetes <Kalpesh De Souza - Last Filed: 03/06/20 15:04> - Allergies and Home Meds Allergies/Adverse Reactions: Allergies Penicillins Allergy (Verified 03/06/20 12:33) Hives tree and shrub pollen Allergy (Verified 03/06/20 12:33) Other lisinopril Adverse Reaction (Mild, Verified 03/06/20 12:33) cough Primary Care Physician: Andres Peres MD [STAFF PHYSICIAN] - As soon as possible Wagner Gr MD [Primary Care Provider] - Review of Systems All systems negative except as indicated General: Reports: Chills, Fever. Denies: Sweats Eyes: Denies: Visual changes - bilaterally, Diplopia ENT: Denies: Rhinorrhea, Sore throat Cardiovascular: Denies: Chest pain, Palpitations Respiratory: Denies: Dyspnea, Cough, Dyspnea on exertion Gastrointestinal: Denies: Abdominal pain, Nausea, Vomiting, Diarrhea, Melena, Hematochezia Genitourinary: Reports: Frequency. Denies: Dysuria, Hematuria Musculoskeletal: Denies: Back pain, Extremity Pain Skin: Denies: Rash, Wounds Neurological: Denies: Headache, Weakness, Numbness <David Coello - Last Filed: 03/06/20 14:56> Physical Exam Vital Signs/Narrative: Vital Signs Temp Pulse Resp BP Pulse Ox 03/06/20 12:29 99.1 F 76 14 122/65 H 97 Inital Vital Signs reviewed: Yes General: Well nourished, Well developed, No Acute Distress Head: Normocephalic, Atraumatic Eyes: Perrl, EOMI ENT: Moist mucous membranes, No rhinorrhea Neck: Supple, Nontender Cardiovascular: Regular rate, Regular rhythm, No murmurs Respiratory: No distress, CTA bilaterally, Chest nontender Abdomen: Soft, Nontender, Nondistended, Normal bowel sounds Back: Nontender, Normal Inspection Extremities: Nontender, No edema Skin: Normal color, No rash Neurological: Alert, Oriented x3, Cranial nerves II-XII grossly intact, Normal Strength, Normal Sensation Psychological: Normal affect, Normal Mood <David Coello - Last Filed: 03/06/20 14:56> Vital Signs/Narrative: Vital Signs Temp Pulse Resp BP Pulse Ox 03/06/20 14:46 98/62 03/06/20 12:29 99.1 F 76 14 122/65 H 97 <Kalpesh De Souza - Last Filed: 03/06/20 15:04> Diagnostic/Tx/Re-eval Chest X-Ray - ED: 1 View, Read by ED Physician, No Acute Disease - Medical Decision Making 03/06/20 14:30 Chest 1 View (Portable) [RAD] Stat Laboratory Results 03/06/20 03/06/20 03/06/20 12:54 12:54 14:02 WBC 4.9 RBC 3.43 L Hgb 10.4 L Hct 31.7 L MCV 92.4 MCH 30.3 MCHC 32.8 RDW Std Deviation 47.8 H RDW Coeff of [place] 14.1 Plt Count 95 L MPV 9.2 Immature Gran % (Auto) 0.800 Neut % (Auto) 48.4 Lymph % (Auto) 41.8 H [place] % (Auto) 7.6 Eos % (Auto) 1.2 Baso % (Auto) 0.2 Absolute Neuts (auto) 2.4 Absolute Lymphs (auto) 2.03 Nucleated RBC % 0 Sodium 138 Potassium 4.1 Chloride 105 Carbon Dioxide 27.0 Anion Gap 6 BUN 19 H Creatinine 1.32 H Estim Creat Clear Calc 43.15 Est GFR (MDRD) Af Amer 67 Est GFR (MDRD) Non-Af 55 L BUN/Creatinine Ratio 14.4 Glucose 124 H Calcium 8.2 L Urine Color Yellow Urine Clarity Cloudy Urine pH 5.0 Ur Specific [place] 1.020 Urine Protein 100 H Urine Glucose (UA) Normal Urine Ketones 5 H Urine Occult Blood 250 H Urine Nitrite Negative Urine Bilirubin Negative Urine Urobilinogen 1 H Ur Leukocyte Esterase 500 H Urine RBC 5-10 SEEN Urine WBC 25-50 SEEN Ur Squamous Epith Cells 0-5 SEEN Urine Bacteria 2+ Urine Mucus 1+ Patient's laboratory work-up was unremarkable. He is afebrile stable vital signs. He does have evidence of UTI. We had to do a straight cath to get a urine because he is having some retention he refused a Mills catheter. we discussed with him multiple times through multiple staff members that he would likely need a Mills catheter but he refused he would rather go home and attempt to go without 1. We will start him on Bactrim and we will have him follow-up with urology. He was advised to return for worsening symptoms which we discussed. <David Coello - Last Filed: 03/06/20 14:56> - Medical Decision Making Patient was seen with me. I did a meqh-to-tunm examination with the patient. Patient presents with difficulty urinating and pain with urination that has gotten worse today. Patient states the pain is over the lower abdomen. Patient denies any fevers or chills. Patient denies any back pain. Patient denies any nausea or vomiting. Vital signs are stable. Patient is afebrile. Patient is in no acute distress. Oral mucosa is pink and moist. Neck is supple. Trachea is midline. There is no JVD. Heart was regular rate and rhythm. Lungs are clear and equal bilaterally. Abdomen is soft. Bowel sounds are normal. There is some mild suprapubic tenderness. There is no rebound or guarding noted. Cranial nerves II through XII are intact. There are no focal motor or sensory deficits. Urinalysis was obtained. There is evidence of urinary tract infection. Patient was given a dose of Bactrim here and a prescription for Bactrim. Patient was instructed to follow-up with his primary care physician in 5 to 7 days. Patient was also instructed to follow-up with urology. Patient was instructed to return if worse in any way. Patient understood and was agreeable with the plan. All questions were answered. <Kalpesh De Souza - Last Filed: 03/06/20 15:04> ED Disposition <David Coello - Last Filed: 03/06/20 14:56> <Kalpesh De Souza - Last Filed: 03/06/20 15:04> - Plan for ED Patient: Disposition: Home or Assisted Living Diagnosis: Type 2 diabetes mellitus, Hypertension, Stented coronary artery, Left ventricular systolic dysfunction, Urinary tract infection Instructions: ED Bladder Infection, Male (Adult) Prescriptions: Smz/Tmp Ds [Bactrim Ds] 1 tab PO BID #14 tab Transmission Status: Received by [facility] Referrals: Wagner Gr MD [Primary Care Provider] - Andres Peres MD [STAFF PHYSICIAN] - As soon as possible
[2020-03-06 13:03] LABS: Absolute Lymphocyte Count 2.03 X10^3/uL (0.83-4.51); Absolute Neutrophil Count 2.4 X10^3/uL (2.0-7.7); Basophil# 0.01 X10^3/uL; Basophil% 0.2 % (0-1); Eosinophil# 0.06 X10^3/uL; Eosinophils% 1.2 % (0-5); Hematocrit 31.7 % (40-54); Hemoglobin 10.4 g/dL (13.0-16.5); Lymphocyte # 2.03 X10^3/ul (4.0); Lymphocyte % 41.8 % (19-41); Mean Corp Hgb Conc 32.8 g/dL (32-36); Mean Corpuscular Hgb 30.3 pg (27.0-32.0); Mean Corpuscular Volume 92.4 fL (80-94); Mean Platelet Vol. 9.2 fl (6.2-12.0); Monocyte# 0.37 X10^3/uL; Monocyte% 7.6 % (0-10); NRBC Flagged by Analyzer 0 % (0-5); Neutrophil # 2.35 X10^3/uL (2.7-7.7); Neutrophil % 48.4 % (47-70); POSITIVE COUNT YES; Platelet Count 95 K/mm3 (150-450); RBC Distribution Width CV 14.1 % (11.6-14.6); RBC Distribution Width SD 47.8 fl (35.1-43.9); Red Blood Count 3.43 M/mm3 (4.6-6.2); White Blood Count 4.9 K/mm3 (4.4-11.0)
[2020-03-06] MEDS: Acetaminophen 325 MG Tablet 650 MG PO (13:08)
[2020-03-06 13:13] LABS: Anion Gap 6 (5-15); BUN 19 mg/dL (7-18); BUN/Creat Ratio 14.4 RATIO (10-20); Calcium,Total 8.2 mg/dL (8.5-10.1); Chloride 105 mmol/L (98-107); Creatinine, Serum 1.32 mg/dL (0.70-1.30); EST Glomerular Filtration Rate 55 mL/min (>60); Est Glom Filt Rate - Afr Amer 67 mL/min (>60); Estimated Creatinine Clearance 43.15 ml/min; Glucose 124 mg/dL (74-106); Potassium 4.1 mmol/L (3.5-5.1); Sodium Level 138 mmol/L (136-145)
[2020-03-06 14:15] LABS: Color, Urine Yellow (Yellow); Glucose, Dipstick Normal (Normal); Ketone-Dipstick 5 mg/dl (Negative); Leukocyte Esterase-Dipstick 500 /ul (Negative); Nitrite-Dipstick Negative (Negative); Occult Blood-Urine 250 /ul (Negative); Protein-Dipstick 100 mg/dl (Negative); Urine Bilirubin Dipstick Negative (Negative); Urine Clarity Cloudy (Clear); Urine Urobilinogen 1 mg/dl (Normal)
[2020-03-06 14:26] LABS: Bacteria 2+ /hpf (None Seen); Mucous, Urine 1+ /hpf (<or=2+); Red Blood Cells-Urine 5-10 SEEN /hpf (0-5); Squamous Epithelial Cells - UA 0-5 SEEN /hpf (0-5); White Blood Cells 25-50 SEEN /hpf (0-5)
--- NOTE | 2020-03-06 14:30 | RAD_ITS ---
STUDY: X-RAY CHEST REASON FOR EXAM: Male, 84 years old. POSSIBLY UTI. PT HAS INCREASED FREQUENCY AND URGENCY. CONFUSED. PROSTATE SURGERY ON 01/30. TECHNIQUE: Single AP portable view of the chest. COMPARISON: Comparison is made with prior study dated 02/22/2016. FINDINGS: Prominence of the left first costochondral junction. Hyperinflation. There is no demonstrated pleural abnormality. Normal size heart. Normal mediastinum and shreya. Normal visualized pulmonary arteries. There is atherosclerotic calcification of the aortic arch with tortuosity. There are diffuse degenerative changes of the visualized thoracic spine. Normal visualized ribs, clavicles, and shoulders. There is no demonstrated abnormality of the visualized soft tissue structures of the upper abdomen. RAD/Chest 1 View (Portable) IMPRESSION: Hyperinflation. No acute abnormality is seen. Electronically Signed: Sudhakar Shelby, at 14:58 EST , Service support ,
[2020-03-06 14:46] VITALS: BP 98/62
[2020-03-06 15:11] VITALS: BP 113/77; PULSE 62; RESP 16; O2SAT 97
[2020-03-06] MEDS: Smz/Tmp Ds Tablet 1 TABLET PO (15:11)
== END 2020-03-06 15:15 | disposition home or self-care (01) ==
PROVIDERS: Emergency Provider Physician Assistant Medical; PCP Family Medicine
DX: N39.0 Urinary tract infection, site not specified (principal); I25.10 Atherosclerotic heart disease of native coronary artery without angina pectoris; E11.9 Type 2 diabetes mellitus without complications; I10 Essential (primary) hypertension; E78.5 Hyperlipidemia, unspecified; N40.1 Benign prostatic hyperplasia with lower urinary tract symptoms; Z79.82 Long term (current) use of aspirin; Z79.899 Other long term (current) drug therapy; Z95.5 Presence of coronary angioplasty implant and graft
CPT/HCPCS: 71045; 80048; 81001; 85025; 87086; 99285; A4216

== ENCOUNTER 2020-03-09 18:35 | Inpatient (IN) | payer MEDICARE, SELFPAY ==
[2020-03-09] VITALS (7 sets, daily range): BP systolic 100–119; BP diastolic 56–75; PULSE 63–76; RESP 17–30; TEMP 37–37.8; O2SAT 87–97; BMI 27.2; BMI 26.4; BMI 26.5
--- NOTE | 2020-03-09 18:51 | EKG12_ITS ---
Test Reason : SOB Blood Pressure : / mmHG Vent. Rate : 070 BPM Atrial Rate : 070 BPM P-R Int : 152 ms QRS Dur : 088 ms QT Int : 410 ms P-R-T Axes : 039 -12 026 degrees QTc Int : 442 ms Normal sinus rhythm Low voltage QRS (Limb Leads) Confirmed by QUIRINO COPE, MARK ([id number]), editor newspaper KELLY LEE ([id number]) on 03/11/2020 10:50:41 AM Referred By: FIDEL Confirmed By:MARK WIN MD
--- NOTE | 2020-03-09 18:55 | ED.DCSUM_ITS ---
History of Present Illness Chief Complaint: Fever Narrative: Patient is an 84-year-old male who presents with a fever. He is a poor informant. He had a TURP recently. He was recently seen here in the emergency department with fever. He was diagnosed with UTI. He was given Bactrim and discharged on the same. He states that today he had a rigors. He does complain of some cough. He denies congestion rhinorrhea sore throat chest pain difficulty breathing. He denies any pain. He denies vomiting or diarrhea. 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 Smoking Status: Unknown if ever smoked - Family History Maternal Family History: Family History (Last Reviewed 12/27/19 @ 13:55 by Marlene BENOIT, PA) Father CAD (coronary artery disease) Myocardial infarction Sudden cardiac Mother Diabetes Family History: Reports: No pertinent history Paternal Family History: Family History (Last Reviewed 12/27/19 @ 13:55 by Marlene BENOIT, PA) Father CAD (coronary artery disease) Myocardial infarction Sudden cardiac Mother Diabetes Family History: Reports: Heart Disease, No pertinent history Review of Systems All systems negative except as indicated General: Reports: Fever ENT: Denies: Sore throat Cardiovascular: Denies: Chest pain Respiratory: Reports: Cough. Denies: Dyspnea Gastrointestinal: Denies: Abdominal pain, Nausea, Vomiting, Diarrhea Musculoskeletal: Denies: Myalgias, Arthralgias Skin: Denies: Rash Neurological: Denies: Headache Allergy: Denies: Uticaria Physical Exam Vital Signs/Narrative: Vital Signs Temp Pulse Resp BP Pulse Ox 03/09/20 18:38 100.1 F H 76 30 H 106/56 L 87 03/09/20 18:37 100.1 F H 75 20 H 106/56 L 87 Inital Vital Signs reviewed: Yes General: Well nourished Head: Normocephalic Eyes: EOMI ENT: Moist mucous membranes Neck: Supple Cardiovascular: Regular rate, Regular rhythm Respiratory: No distress, CTA bilaterally Abdomen: Soft, Nontender Extremities: Nontender Skin: Normal color Neurological: Alert Psychological: Normal affect Diagnostic/Tx/Re-eval Impressions Chest X-Ray 03/09/20 19:35 IMPRESSION: Findings suspicious for evolving inflammatory disease in the lower lobes greater on the left Electronically Signed: Deandre Taylor MD at 20:25 EST , Service support , 03/09/20 19:35 Chest 1 View (Portable) [RAD] Stat 03/09/20 18:59 Mucosa - Nose SARS-CoV-2 Antigen (Rapid) - Final SARS-CoV-2 (COVID 19) Laboratory Results 03/09/20 03/09/20 03/09/20 19:19 19:19 19:19 WBC 3.0 L RBC 2.88 L Hgb 8.5 L Hct 26.0 L MCV 90.3 MCH 29.5 MCHC 32.7 RDW Std Deviation 46.3 H RDW Coeff of [place]ont 13.9 Plt Count 112 L MPV 9.7 Neut % (Auto) Not Reportable Absolute Neuts (auto) 9.8 H Absolute Lymphs (auto) 2.73 Total Counted 100 Neutrophils % (Manual) 69 Band Neutrophils % 6 H Lymphocytes % (Manual) 21 Monocytes % (Manual) 4 Diff Path Review May foll Platelet Estimate SLT DEC RBC Morphology N CYTIC Hypochromasia 1+ PT 14.1 INR 1.1 Sodium 132 L Potassium 4.1 Chloride 102 Carbon Dioxide 24.0 Anion Gap 6 BUN 33 H Creatinine 1.71 H Estim Creat Clear Calc 34.39 Est GFR (MDRD) Af Amer 50 L Est GFR (MDRD) Non-Af 41 L BUN/Creatinine Ratio 19.3 Glucose 122 H Lactic Acid Calcium 7.6 L Total Bilirubin 0.40 AST 48 H ALT 27 Alkaline Phosphatase 80 Total Protein 6.2 L Albumin 2.7 L Globulin 3.5 Albumin/Globulin Ratio 0.8 L 03/09/20 19:19 WBC RBC Hgb Hct MCV MCH MCHC RDW Std Deviation RDW Coeff of [place]ont Plt Count MPV Neut % (Auto) Absolute Neuts (auto) Absolute Lymphs (auto) Total Counted Neutrophils % (Manual) Band Neutrophils % Lymphocytes % (Manual) Monocytes % (Manual) Diff Path Review Platelet Estimate RBC Morphology Hypochromasia PT INR Sodium Potassium Chloride Carbon Dioxide Anion Gap BUN Creatinine Estim Creat Clear Calc Est GFR (MDRD) Af Amer Est GFR (MDRD) Non-Af BUN/Creatinine Ratio Glucose Lactic Acid 1.1 Calcium Total Bilirubin AST ALT Alkaline Phosphatase Total Protein Albumin Globulin Albumin/Globulin Ratio - Medical Decision Making EKG shows normal sinus rhythm at a rate of 70 with no acute ischemic changes. 1 view chest x-ray was obtained. On my interpretation it shows bilateral infiltrates. X-ray read by radiology as findings suspicious for evolving inflammatory disease in the lower lobes greater on the left. Labs are notable for leukopenia and thrombocytopenia consistent with viral infection. COVID-19 antigen is positive. Patient had been empirically given IV Rocephin on presentation here due to concern for sepsis. Based on bilateral infiltrates he was also given IV azithromycin to cover for potential secondary bacterial pneumonia. He was given IV Decadron due to COVID-19 with hypoxia. Given his oxygen requirement he does meet criteria for hospitalization. Patient will be discussed with the hospitalist and admitted for further evaluation and management. ED Disposition - Plan for ED Patient: Disposition: Acute Care Hospital [facility] Diagnosis: Pneumonia due to COVID-19 virus, Acute respiratory failure with hypoxia Referrals: Wagner Gr MD [Primary Care Provider] -
[2020-03-09] MEDS: 0.9% Normal Saline 1,000 ML 999 ML IV ×2 (19:25→21:03)
[2020-03-09 19:33] LABS: Hemoglobin 8.5 g/dL (13.0-16.5); Mean Corp Hgb Conc 32.7 g/dL (32-36); Mean Corpuscular Hgb 29.5 pg (27.0-32.0); Mean Corpuscular Volume 90.3 fL (80-94); Mean Platelet Vol. 9.7 fl (6.2-12.0); POSITIVE COUNT YES; POSITIVE MORPHOLOGY YES; Platelet Count 112 K/mm3 (150-450); RBC Distribution Width CV 13.9 % (11.6-14.6); RBC Distribution Width SD 46.3 fl (35.1-43.9); Red Blood Count 2.88 M/mm3 (4.6-6.2)
[2020-03-09] MEDS: Ceftriaxone 1 GM/50 ML BAG IV (19:34)
[2020-03-09 19:35] LABS: Differential Indicated MANUAL DIFF
--- NOTE | 2020-03-09 19:35 | RAD_ITS ---
STUDY: X-RAY CHEST REASON FOR EXAM: Male, 84 years old. FEVER, UTI. TECHNIQUE: AP portable COMPARISON: 03/06/2020 FINDINGS: There is interstitial thickening and patchy areas of increased density in the lower lobes greater on the left possibly representing atypical viral pneumonia. There is no demonstrated pleural abnormality. Normal size heart. Normal mediastinum and shreya. Normal visualized pulmonary arteries. Mildly calcified aortic arch and descending thoracic aorta. Dorsal spine and shoulders demonstrate degenerative change. Normal visualized ribs, and clavicles.. There is no demonstrated abnormality of the visualized soft tissue structures of the upper abdomen. RAD/Chest 1 View (Portable) IMPRESSION: Findings suspicious for evolving inflammatory disease in the lower lobes greater on the left Electronically Signed: Deandre Taylor MD at 20:25 EST , Service support ,
[2020-03-09 19:41] LABS: International Normalized Ratio 1.1; Prothrombin Time (Protime)PT. 14.1 SECONDS (11.7-14.9)
[2020-03-09 19:51] LABS: ALB/GLOB Ratio 0.8 RATIO (0.9-2.4); AST(SGOT) 48 U/L (15-37); Alanine Aminotransfer ALT/SGPT 27 U/L (16-61); Albumin, Serum 2.7 g/dL (3.2-5.0); Alkaline Phosphatase 80 U/L (45-117); Anion Gap 6 (5-15); BUN 33 mg/dL (7-18); BUN/Creat Ratio 19.3 RATIO (10-20); Calcium,Total 7.6 mg/dL (8.5-10.1); Chloride 102 mmol/L (98-107); Creatinine, Serum 1.71 mg/dL (0.70-1.30); EST Glomerular Filtration Rate 41 mL/min (>60); Est Glom Filt Rate - Afr Amer 50 mL/min (>60); Estimated Creatinine Clearance 34.39 ml/min; Globulin 3.5 g/dL (2.2-4.2); Glucose 122 mg/dL (74-106); Potassium 4.1 mmol/L (3.5-5.1); Protein, Total 6.2 g/dL (6.4-8.2); Sodium Level 132 mmol/L (136-145)
[2020-03-09 20:07] LABS: Lactic Acid 1.1 mmol/L (0.4-1.9)
[2020-03-09 20:15] LABS: Lymphocyte 21 % (19-41); Monocyte 4 % (0-10); Neutrophil-Band 6 % (0-5); Neutrophil-Segmented 69 % (47-70); Total Cells Counted 100 (MANUAL DIFF)
[2020-03-09 20:16] LABS: Hypochromasia 1+; Platelet Estimate SLT DEC (ADEQ); Red Cell Morphology N CYTIC NORMAL (NORM C&C)
[2020-03-09 20:17] LABS: Absolute Lymphocyte Count 2.73 X10^3/uL (0.83-4.51); Absolute Neutrophil Count 9.8 X10^3/uL (2.0-7.7)
[2020-03-09] MEDS: dexAMETHasone 4 MG/ML Vial 6 MG IV (21:03)
--- NOTE | 2020-03-09 21:31 | PCM.HP.STD ---
Problem List (1) Pneumonia due to COVID-19 virus Status: Acute (2) Stented coronary artery Status: Chronic Comment: 02/22/2016 Acute Anterior STEMI; PTCA and ANDRY X2 to proximal and mid LAD, POBA of ostium of dx (3) Atherosclerotic heart disease of [place] coronary artery without angina pectoris Status: Chronic Qualifiers: [place] vs. transplanted heart: [place] heart Qualified Code(s): I25.10 - Atherosclerotic heart disease of [place] coronary artery without angina pectoris Comment: 02/22/2016 Acute lateral STEMI; PTCA and ANDRY X2 to proximal and mid LAD, POBA of ostium of dx (4) Hyperlipidemia Status: Chronic Qualifiers: Hyperlipidemia type: pure hypercholesterolemia Qualified Code(s): E78.00 - Pure hypercholesterolemia, unspecified; E78.0 - Pure hypercholesterolemia (5) Hypertension Status: Chronic Qualifiers: Hypertension type: essential hypertension Qualified Code(s): I10 - Essential (primary) hypertension (6) Type 2 diabetes mellitus Status: Chronic History of Present Illness Date of Admission: 03/09/20 Chief Complaint: Fever. The patient is a 84 year old M with past medical history as mentioned above presented to the emergency room because of fever. Patient mentioned that he started having fever 3 days ago, it was up to 103.1 Fahrenheit, associated with weakness and no other significant symptoms. He reported mild cough which is chronic but nothing unusual. He underwent CRP on January 31, 2020. He came to the emergency department 3 days ago because of fever, was treated for UTI and he was discharged on Bactrim. Patient continued to have fever at home. He had a history of CAD status post stents and he has been on aspirin, statins, beta-blockers and losartan. He had a history of benign prostatic hypertrophy with bladder mass underwent TURP last month and he has been on Avodart. He had a history of hypothyroidism and he has been on levothyroxine, TSH was normal on December,. In the emergency department, patient had spikes of low-grade fever, blood pressure and heart rate were stable, pulse ox was 97% on 2 L. Routine blood work was remarkable for leukopenia, anemia, thrombocytopenia, BUN of 33 and creatinine of 1.71. LFT was unremarkable. Lactic acid was normal. Chest x-ray revealed patchy infiltrate on the lower lobes greater on the left side probably due to COVID-19 pneumonia. COVID-19 antigen came back positive. He is being admitted for acute bilateral COVID-19 pneumonia with hypoxia as well as anemia and pancytopenia. Past Medical History Past Medical History (Chronic Problems): Chronic Problems (Last Reviewed 01/31/20 @ 14:[address] Andres Peres MD) Bladder mass (Chronic) Left ventricular systolic dysfunction (Chronic) per echo 02/23/2016 History of left heart catheterization (Chronic) 02/22/2016 Acute Anterior STEMI;LHC, PTCA and ANDRY X2 to proximal and mid LAD, POBA of ostium of dx per Dr. King, [facility] Stented coronary artery (Chronic) 02/22/2016 Acute Anterior STEMI; PTCA and ANDRY X2 to proximal and mid LAD, POBA of ostium of dx History of lateral wall myocardial infarction (Chronic) 02/22/2016 Atherosclerotic heart disease of [place] coronary artery without angina pectoris (Chronic) 02/22/2016 Acute lateral STEMI; PTCA and ANDRY X2 to proximal and mid LAD, POBA of ostium of dx Hyperlipidemia (Chronic) Hypertension (Chronic) Type 2 diabetes mellitus (Chronic) Medical History: Medical History (Last Reviewed 01/31/20 @ 14:[address] Andres Peres MD) Left ventricular systolic dysfunction (Chronic) I51.9 per echo 02/23/2016 History of lateral wall myocardial infarction (Chronic) I25.2 02/22/2016 Atherosclerotic heart disease of [place] coronary artery without angina pectoris (Chronic) I25.10 02/22/2016 Acute lateral STEMI; PTCA and ANDRY X2 to proximal and mid LAD, POBA of ostium of dx Hyperlipidemia (Chronic) E78.5 Hypertension (Chronic) I10 Type 2 diabetes mellitus (Chronic) E11.9 Aneurysm of infrarenal abdominal aorta I71.4 Lymphoma C85.90 Allergies Penicillins Allergy (Verified 03/09/20 18:40) Hives tree and shrub pollen Allergy (Verified 03/09/20 18:40) Other lisinopril Adverse Reaction (Mild, Verified 03/09/20 18:40) cough Home Medications: Ambulatory Orders Medication Instructions Recorded levothyroxine 75 mcg tablet 75 mcg PO DAILY 04/23/18 atorvastatin 40 mg tablet 40 mg PO QHS #90 tab 05/24/18 Dutasteride [Avodart] 0.5 mg PO DAILY #90 cap 01/20/20 Carvedilol 3.125 mg PO BID 01/29/20 Losartan Potassium [Cozaar] 25 mg PO DAILY 01/29/20 Smz/Tmp Ds [Bactrim Ds] 1 tab PO BID #14 tab 03/06/20 Aspirin E.C. [Ecotrin] 81 mg PO DAILY@0800 03/09/20 Surgical History: Surgical History (Last Reviewed 12/27/19 @ 13:55 by Marlene BENOIT, PA) History of left heart catheterization (Chronic) Z98.890 02/22/2016 Acute Anterior STEMI;LHC, PTCA and ANDRY X2 to proximal and mid LAD, POBA of ostium of dx per Dr. 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 Denies: Fatigue Eyes: Denies: Blurred vision, Double vision, Drainage, Redness HEENT: Denies: Difficulty Hearing, Ear Pain, Eye Pain, Nasal Congestion, Sore Throat Cardiovascular: Denies: Chest Pain, Chest Pressure, Edema, Heaviness, Palpitations, Syncope Respiratory: Reports: Cough. Denies: Hemoptysis, Pleuritic Pain, Shortness of Breath, Sputum production, Wheezing Gastrointestinal: Denies: Abdominal Pain, Constipation, Diarrhea, Nausea, Vomiting Genitourinary: Reports: Incontinence. Denies: Dysuria, Frequency, Hematuria Musculoskeletal: Denies: Arm Pain, Back Pain, Foot Pain Skin: Denies: Dryness, Rash Neurological: Denies: Balance problems, Blurred vision, Double vision, Slurred speech, Incoordination, Numbness Psychiatric: Denies: Anxiety, Depression VTE Information - Inpt Only VTE Present on Admission: No VTE Mechan Device Prophylaxis: None VTE Pharm Prophylaxis ordered?: Yes Patient Problems: Active and Suspected Problems (Last Reviewed 01/31/20 @ 14:[address] Andres Peres MD) Pneumonia due to COVID-19 virus (Acute) - Physical Exam Vitals/I&O's: Vital Signs Temp Pulse Resp BP Pulse Ox 100.1 F H 66 24 H 119/61 97 03/09/20 21:08 03/09/20 21:08 03/09/20 21:08 03/09/20 21:08 03/09/20 21:08 Oxygen Flow Rate (L/min) 2 Oxygen Delivery Method Nasal Cannula Weight: 190 lb 0.615 oz Body Mass Index (BMI) 27.2 Finger Stick Blood Glucose 123 Intake and Output for Last 24 Hours 03/07/20 03/08/20 03/09/20 23:59 23:59 23:59 Intake Total 199.85 / 199.85 Balance 199.85 / 199.85 General: Alert, Oriented x3, Cooperative, No apparent distress HEENT: Atraumatic, PERRLA, EOMI, Normocephalic Oral: Moist Mucosa, No Gingival or Mucosal Lesions/ Ulcerations Neck: Supple, No JVD, Negative Carotid Bruits, Trachea Midline, Thyroid Normal Size and Texture Lungs: Clear to auscultation, Normal air movement, No rhonchi, No wheeze, No rales, Diminished Cardiovascular: Regular rate, Regular Rhythm, Normal S1, Normal S2, No murmurs Abdomen: Bowel Sounds Present, Soft, Non Tender, Non-Distended, No Hepato-splenomegaly Extremities: No clubbing, No cyanosis, No edema Skin: No rashes, No breakdown Lymphatic: No Cervical, Supraclavicular, or Inguinal Adenopathy Neurological: Cranial nerves II-XII grossly intact, Motor Exam 5/5 strength throughout Psych/Mental Status: Normal Affect, Appropriate, Alert and oriented to time, place, person, mood and affect Microbiology Past 72 Hours 03/09/20 18:59 Mucosa - Nose SARS-CoV-2 Antigen (Rapid) - Final SARS-CoV-2 (COVID 19) Laboratory Results 03/09/20 19:19: WBC 3.0 L, RBC 2.88 L, Hgb 8.5 L, Hct 26.0 L, MCV 90.3, MCH 29.5, MCHC 32.7, RDW Std Deviation 46.3 H, RDW Coeff of Lamont 13.9, Plt Count 112 L, MPV 9.7, Neut % (Auto) Not Reportable, Absolute Neuts (auto) 9.8 H, Absolute Lymphs (auto) 2.73, Total Counted 100, Neutrophils % (Manual) 69, Band Neutrophils % 6 H, Lymphocytes % (Manual) 21, Monocytes % (Manual) 4, Diff Path Review July, Platelet Estimate SLT DEC, RBC Morphology N CYTIC, Hypochromasia 1+ 03/09/20 19:19: PT 14.1, INR 1.1 03/09/20 19:19: Sodium 132 L, Potassium 4.1, Chloride 102, Carbon Dioxide 24.0, Anion Gap 6, BUN 33 H, Creatinine 1.71 H, Estim Creat Clear Calc 34.39, Est GFR (MDRD) Af Amer 50 L, Est GFR (MDRD) Non-Af 41 L, BUN/Creatinine Ratio 19.3, Glucose 122 H, Calcium 7.6 L, Total Bilirubin 0.40, AST 48 H, ALT 27, Alkaline Phosphatase 80, Total Protein 6.2 L, Albumin 2.7 L, Globulin 3.5, Albumin/Globulin Ratio 0.8 L 03/09/20 19:19: Lactic Acid 1.1 Clinical Impression(s) from Imaging Studies Chest X-Ray 03/09/20 19:35 IMPRESSION: Findings suspicious for evolving inflammatory disease in the lower lobes greater on the left Electronically Signed: Deandre Taylor MD at 20:25 EST , Service support , Current Medications Azithromycin 500 mg/ Dextrose 255 mls @ 250 mls/hr IV X1 ONE Stop: 03/09/20 21:32 Last Admin: 03/09/20 21:03 Dose: 250 mls/hr Documented by: Assessment/Plan All Active Problems (Last Reviewed 01/31/20 @ 14:[address] Andres Peres MD) Pneumonia due to COVID-19 virus (Acute) This is an 84 years old male patient presented to the emergency room because of fever as well as mild chronic cough and he tested positive for COVID-19 antigen, found to have bilateral infiltrates on chest x-ray and he is being admitted for acute COVID-19 pneumonia and hypoxia. #1 acute bilateral COVID-19 pneumonia/hypoxia: Chest x-ray reviewed. Currently, he is on oxygen at 2 L. Other vital signs are stable. Plan: Admit to COVID-19 [facility] floor, isolation precautions, check D-dimer, CPK, BNP, LDH, start IV Decadron and IV remdesivir, infectious disease consult, repeat CBC and CMP tomorrow morning, PT OT evaluation and treatment. #2 status post recent TURP: This was done on January 31, 2020. Patient came to ER because of fever 3 days ago, was started on Bactrim for UTI. Urine culture from that day showed no growth. Patient reported incontinence, no dysuria. Plan to continue Avodart. #3 pancytopenia/anemia: Has WBC, hemoglobin and platelet count has been fluctuating. He does have chronic iron deficiency anemia. Baseline hemoglobin has been around anywhere from 9 to 11 g/dL. Admission hemoglobin is 8.5, no active bleeding. Denies hematuria. He had low iron, high TIBC as well as low iron saturation in the past. Plan to start iron supplement, repeat CBC in the morning. #4 acute kidney injury on top of stage III chronic kidney disease: Baseline creatinine has been around 1.3, admission creatinine is 1.71. Plan for gentle IV fluids for hydration, avoid nephrotoxic drugs, input output chart, repeat CMP tomorrow morning. #5 CAD status post stents: Stable, no acute changes. Troponin is negative. Continue aspirin, statins, Coreg. #6 type 2 diabetes mellitus: Currently, he is not on any medication. Plan for ADA diet, Accu-Cheks, sliding scale. #7 hypertension: Blood pressure stable, continue Coreg, hold losartan. #8 hyperlipidemia: Continue statins. #9 hypothyroidism: Continue levothyroxine. #10 DVT prophylaxis: Subcu Lovenox twice daily. #11 CODE STATUS: Discussed with the patient but he is not sure. Patient was requested to think about. This note was generated with [employer] software. It may contain incorrect words, spelling, and punctuation that were not noted in checking the note before signing. Inpatient E&M: 49770 Init Hosp L3
--- NOTE | 2020-03-09 22:09 | PCS.PANDOC ---
PANDEMIC DOCUMENTATION INITIATED: Date: 03/09/20 Time: [id number]
[2020-03-09 22:39] LABS: D-Dimer Quantitative (DVT/PE) 0.86 FEU/ug/m (0.27-0.49)
[2020-03-09 22:41] LABS: BNP,B-Type NATRIURETIC PEPTIDE 172.6 pg/mL (0-100)
[2020-03-09 22:44] LABS: CPK Total, Creatine Kinase 45 U/L (39-308); LDH 254 U/L (87-241)
[2020-03-09 23:24] LABS: Mucous, Urine 0 SEEN /hpf (<or=2+); Squamous Epithelial Cells - UA 0 SEEN /hpf (0-5)
[2020-03-09 23:27] LABS: Color, Urine Yellow (Yellow); Glucose, Dipstick Normal (Normal); Ketone-Dipstick Negative (Negative); Leukocyte Esterase-Dipstick 25 /ul (Negative); Nitrite-Dipstick Negative (Negative); Occult Blood-Urine 150 /ul (Negative); Protein-Dipstick 30 mg/dl (Negative); Urine Bilirubin Dipstick Negative (Negative); Urine Clarity Clear (Clear); Urine Urobilinogen Normal (Normal)
[2020-03-09 23:33] LABS: Bacteria 1+ /hpf (None Seen); Red Blood Cells-Urine 0-5 SEEN /hpf (0-5); White Blood Cells 10-25 SEEN /hpf (0-5)
[2020-03-09] MEDS: 0.9% Normal Saline 1,000 ML 75 ML IV (23:39)
[2020-03-09] MEDS: Carvedilol 3.125 MG TABLET PO (23:41)
[2020-03-09] MEDS: Atorvastatin Calcium 40 MG Tablet PO (23:42)
[2020-03-09] MEDS: Enoxaparin 30 MG/0.3 ML Syringe SC (23:42)
[2020-03-10] VITALS (14 sets, daily range): BP systolic 99–116; BP diastolic 57–71; PULSE 54–68; RESP 16–28; TEMP 36.3–36.9; O2SAT 84–94
[2020-03-10 05:49] LABS: Hematocrit 26.6 % (40-54); Hemoglobin 8.5 g/dL (13.0-16.5); Mean Corpuscular Hgb 29.4 pg (27.0-32.0); Mean Platelet Vol. 9.5 fl (6.2-12.0); POSITIVE COUNT YES; POSITIVE MORPHOLOGY YES; Platelet Count 105 K/mm3 (150-450); RBC Distribution Width CV 14.1 % (11.6-14.6); RBC Distribution Width SD 47.9 fl (35.1-43.9); Red Blood Count 2.89 M/mm3 (4.6-6.2); White Blood Count 3.3 K/mm3 (4.4-11.0)
[2020-03-10 05:52] LABS: Differential Indicated MANUAL DIFF
[2020-03-10 06:09] LABS: ALB/GLOB Ratio 0.6 RATIO (0.9-2.4); AST(SGOT) 72 U/L (15-37); Alanine Aminotransfer ALT/SGPT 41 U/L (16-61); Albumin, Serum 2.4 g/dL (3.2-5.0); Alkaline Phosphatase 88 U/L (45-117); Anion Gap 6 (5-15); BUN 27 mg/dL (7-18); BUN/Creat Ratio 18.9 RATIO (10-20); Calcium,Total 7.7 mg/dL (8.5-10.1); Chloride 107 mmol/L (98-107); Creatinine, Serum 1.43 mg/dL (0.70-1.30); EST Glomerular Filtration Rate 50 mL/min (>60); Est Glom Filt Rate - Afr Amer 61 mL/min (>60); Estimated Creatinine Clearance 41.12 ml/min; Globulin 3.7 g/dL (2.2-4.2); Glucose 260 mg/dL (74-106); Potassium 4.1 mmol/L (3.5-5.1); Protein, Total 6.1 g/dL (6.4-8.2); Sodium Level 136 mmol/L (136-145)
[2020-03-10 06:16] LABS: Total Cells Counted 100 (MANUAL DIFF)
[2020-03-10 06:26] LABS: Basophil 1 % (0-1); Lymphocyte 22 % (19-41); Metamyelocyte 4 % (0-1); Monocyte 1 % (0-10); Myelocyte 1 (0-0); Neutrophil-Band 7 % (0-5); Neutrophil-Segmented 64 % (47-70)
[2020-03-10 06:27] LABS: Atypical Lymphocyte 1+ %; Platelet Estimate SLT DEC (ADEQ); Toxic Granulation 1+
[2020-03-10 06:28] LABS: Absolute Lymphocyte Count 0.72 X10^3/uL (0.83-4.51); Absolute Neutrophil Count 2.3 X10^3/uL (2.0-7.7); Lymphocyte # 0.72 X10^3/ul (4.0); Neutrophil # 2.33 X10^3/uL (2.7-7.7)
[2020-03-10 06:29] LABS: Hypochromasia RARE
[2020-03-10] MEDS: Aspirin E.C. 81 MG Tablet PO (10:00)
[2020-03-10] MEDS: dexAMETHasone 4 MG Tablet 6 MG PO (10:00)
[2020-03-10] MEDS: Carvedilol 3.125 MG TABLET PO ×2 (10:00→22:04)
[2020-03-10] MEDS: Levothyroxine 75 MCG Tablet PO (10:01)
[2020-03-10] MEDS: Enoxaparin 30 MG/0.3 ML Syringe SC ×2 (10:01→22:09)
[2020-03-10] MEDS: Finasteride 5 MG Tablet PO (10:01)
--- NOTE | 2020-03-10 11:20 | PCM.HP.ID ---
Problem List (1) Pneumonia due to COVID-19 virus Status: Acute Reason for Consult: covid Consulted by: Dr. Guardado History of Present Illness: The patient is a 84 year old M with TURP 01/31/[address] Peres. Presented to ED 03/06 with fever, dysuria. Sent home with bactrim, ucx was neg. Fever continued, had some dry cough, chills. Came back, covid (+). No n/v/d, no change in taste or smell. Admitted on dex, remdesivir. Full ROS performed and neg except as noted above. - Medical History Past Medical History (Chronic Problems): Chronic Problems (Last Reviewed 01/31/20 @ 14:[address] Andres Peres MD) Bladder mass (Chronic) Left ventricular systolic dysfunction (Chronic) per echo 02/23/2016 History of left heart catheterization (Chronic) 02/22/2016 Acute Anterior STEMI;LHC, PTCA and ANDRY X2 to proximal and mid LAD, POBA of ostium of dx per Dr. King, [facility] Stented coronary artery (Chronic) 02/22/2016 Acute Anterior STEMI; PTCA and ANDRY X2 to proximal and mid LAD, POBA of ostium of dx History of lateral wall myocardial infarction (Chronic) 02/22/2016 Atherosclerotic heart disease of [place] coronary artery without angina pectoris (Chronic) 02/22/2016 Acute lateral STEMI; PTCA and ANDRY X2 to proximal and mid LAD, POBA of ostium of dx Hyperlipidemia (Chronic) Hypertension (Chronic) Type 2 diabetes mellitus (Chronic) Allergies/Adverse Reactions: Allergies Penicillins Allergy (Verified 03/09/20 18:40) Hives tree and shrub pollen Allergy (Verified 03/09/20 18:40) Other lisinopril Adverse Reaction (Mild, Verified 03/09/20 18:40) cough Home Medications: Ambulatory Orders Medication Instructions Recorded levothyroxine 75 mcg tablet 75 mcg PO DAILY 04/23/18 atorvastatin 40 mg tablet 40 mg PO QHS #90 tab 05/24/18 Dutasteride [Avodart] 0.5 mg PO DAILY #90 cap 01/20/20 Carvedilol 3.125 mg PO BID 01/29/20 Losartan Potassium [Cozaar] 25 mg PO DAILY 01/29/20 Smz/Tmp Ds [Bactrim Ds] 1 tab PO BID #14 tab 03/06/20 Aspirin E.C. [Ecotrin] 81 mg PO DAILY@0800 03/09/20 - Social History SMOKING STATUS:: Former smoker Vital Signs Temp Pulse Resp BP Pulse Ox 98.2 F 60 16 116/68 92 03/10/20 07:05 03/10/20 10:00 03/10/20 07:05 03/10/20 07:05 03/10/20 07:05 Oxygen Flow Rate (L/min) 3 Oxygen Delivery Method Nasal Cannula Weight: 83.733 kg Body Mass Index (BMI) 26.4 Finger Stick Blood Glucose 123 Microbiology Past 72 Hours 03/09/20 18:59 SARS-CoV-2 Antigen (Rapid) - Final Mucosa - Nose SARS-CoV-2 (COVID 19) Laboratory Tests Past 24 Hrs 03/09/20 03/09/20 03/09/20 19:19 19:19 19:19 WBC 3.0 L RBC 2.88 L Hgb 8.5 L Hct 26.0 L MCV 90.3 MCH 29.5 MCHC 32.7 RDW Std Deviation 46.3 H RDW Coeff of [place] 13.9 Plt Count 112 L MPV 9.7 Neut % (Auto) Not Reportable Absolute Neuts (auto) 9.8 H Absolute Lymphs (auto) 2.73 Total Counted 100 Neutrophils % (Manual) 69 Band Neutrophils % 6 H Lymphocytes % (Manual) 21 Monocytes % (Manual) 4 Basophils % (Manual) Metamyelocytes % Myelocytes % Diff Path Review May foll Atypical Lymphocytes Toxic Granulation Platelet Estimate SLT DEC RBC Morphology N CYTIC Hypochromasia 1+ PT 14.1 INR 1.1 D-Dimer Quant (PE/DVT) Sodium 132 L Potassium 4.1 Chloride 102 Carbon Dioxide 24.0 Anion Gap 6 BUN 33 H Creatinine 1.71 H Estim Creat Clear Calc 34.39 Est GFR (MDRD) Af Amer 50 L Est GFR (MDRD) Non-Af 41 L BUN/Creatinine Ratio 19.3 Glucose 122 H Lactic Acid Calcium 7.6 L Total Bilirubin 0.40 AST 48 H ALT 27 Alkaline Phosphatase 80 Lactate Dehydrogenase Total Creatine Kinase Troponin I B-Natriuretic Peptide Total Protein 6.2 L Albumin 2.7 L Globulin 3.5 Albumin/Globulin Ratio 0.8 L Urine Color Urine Clarity Urine pH Ur Specific [place] Urine Protein Urine Glucose (UA) Urine Ketones Urine Occult Blood Urine Nitrite Urine Bilirubin Urine Urobilinogen Ur Leukocyte Esterase Urine RBC Urine WBC Ur Squamous Epith Cells Urine Bacteria Urine Mucus 03/09/20 03/09/20 03/09/20 19:19 19:19 19:19 WBC RBC Hgb Hct MCV MCH MCHC RDW Std Deviation RDW Coeff of [place] Plt Count MPV Neut % (Auto) Absolute Neuts (auto) Absolute Lymphs (auto) Total Counted Neutrophils % (Manual) Band Neutrophils % Lymphocytes % (Manual) Monocytes % (Manual) Basophils % (Manual) Metamyelocytes % Myelocytes % Diff Path Review Atypical Lymphocytes Toxic Granulation Platelet Estimate RBC Morphology Hypochromasia PT INR D-Dimer Quant (PE/DVT) 0.86 H* Sodium Potassium Chloride Carbon Dioxide Anion Gap BUN Creatinine Estim Creat Clear Calc Est GFR (MDRD) Af Amer Est GFR (MDRD) Non-Af BUN/Creatinine Ratio Glucose Lactic Acid 1.1 Calcium Total Bilirubin AST ALT Alkaline Phosphatase Lactate Dehydrogenase 254 H Total Creatine Kinase 45 Troponin I < 0.015 B-Natriuretic Peptide Total Protein Albumin Globulin Albumin/Globulin Ratio Urine Color Urine Clarity Urine pH Ur Specific [place] Urine Protein Urine Glucose (UA) Urine Ketones Urine Occult Blood Urine Nitrite Urine Bilirubin Urine Urobilinogen Ur Leukocyte Esterase Urine RBC Urine WBC Ur Squamous Epith Cells Urine Bacteria Urine Mucus 03/09/20 03/09/20 03/10/20 19:19 22:55 05:30 WBC 3.3 L RBC 2.89 L Hgb 8.5 L Hct 26.6 L MCV 92.0 MCH 29.4 MCHC 32.0 RDW Std Deviation 47.9 H RDW Coeff of [place] 14.1 Plt Count 105 L MPV 9.5 Neut % (Auto) Not Reportable Absolute Neuts (auto) 2.3 Absolute Lymphs (auto) 0.72 L Total Counted 100 Neutrophils % (Manual) 64 Band Neutrophils % 7 H Lymphocytes % (Manual) 22 Monocytes % (Manual) 1 Basophils % (Manual) 1 Metamyelocytes % 4 H Myelocytes % 1 H Diff Path Review May foll Atypical Lymphocytes 1+ Toxic Granulation 1+ Platelet Estimate SLT DEC RBC Morphology Hypochromasia RARE PT INR D-Dimer Quant (PE/DVT) Sodium Potassium Chloride Carbon Dioxide Anion Gap BUN Creatinine Estim Creat Clear Calc Est GFR (MDRD) Af Amer Est GFR (MDRD) Non-Af BUN/Creatinine Ratio Glucose Lactic Acid Calcium Total Bilirubin AST ALT Alkaline Phosphatase Lactate Dehydrogenase Total Creatine Kinase Troponin I B-Natriuretic Peptide 172.6 H Total Protein Albumin Globulin Albumin/Globulin Ratio Urine Color Yellow Urine Clarity Clear Urine pH 6.0 Ur Specific [place] 1.010 Urine Protein 30 H Urine Glucose (UA) Normal Urine Ketones Negative Urine Occult Blood 150 H Urine Nitrite Negative Urine Bilirubin Negative Urine Urobilinogen Normal Ur Leukocyte Esterase 25 H Urine RBC 0-5 SEEN Urine WBC 10-25 SEEN Ur Squamous Epith Cells 0 SEEN Urine Bacteria 1+ Urine Mucus 0 SEEN 03/10/20 05:30 WBC RBC Hgb Hct MCV MCH MCHC RDW Std Deviation RDW Coeff of [place] Plt Count MPV Neut % (Auto) Absolute Neuts (auto) Absolute Lymphs (auto) Total Counted Neutrophils % (Manual) Band Neutrophils % Lymphocytes % (Manual) Monocytes % (Manual) Basophils % (Manual) Metamyelocytes % Myelocytes % Diff Path Review Atypical Lymphocytes Toxic Granulation Platelet Estimate RBC Morphology Hypochromasia PT INR D-Dimer Quant (PE/DVT) Sodium 136 Potassium 4.1 Chloride 107 Carbon Dioxide 23.0 Anion Gap 6 BUN 27 H Creatinine 1.43 H Estim Creat Clear Calc 41.12 Est GFR (MDRD) Af Amer 61 Est GFR (MDRD) Non-Af 50 L BUN/Creatinine Ratio 18.9 Glucose 260 H Lactic Acid Calcium 7.7 L Total Bilirubin 0.30 AST 72 H ALT 41 Alkaline Phosphatase 88 Lactate Dehydrogenase Total Creatine Kinase Troponin I B-Natriuretic Peptide Total Protein 6.1 L Albumin 2.4 L Globulin 3.7 Albumin/Globulin Ratio 0.6 L Urine Color Urine Clarity Urine pH Ur Specific [place] Urine Protein Urine Glucose (UA) Urine Ketones Urine Occult Blood Urine Nitrite Urine Bilirubin Urine Urobilinogen Ur Leukocyte Esterase Urine RBC Urine WBC Ur Squamous Epith Cells Urine Bacteria Urine Mucus - Other Studies Radiology: [] reviewed Other Studies: [] Route of nutrition/ use of supplements: [] Nutritional Intake: [] IV Site: [] Mills Catheter: [] - Physical Exam General: Alert, Cooperative, No apparent distress HEENT: Atraumatic, PERRLA, EOMI Neck: Supple, No Nodes Lungs: Diminished Cardiovascular: Regular rate, Regular Rhythm Abdomen: Soft, Non Tender, Non-Distended Extremities: No edema Skin: No rashes IV Site: Peripheral Musculoskeletal: No Tenderness to Palpation of Joints or Extremities Neurological: Cranial nerves II-XII grossly intact - Assessment/Plan Antibiotics: [] Assessment/Plan: [] Active and Suspected Problems (Last Reviewed 01/31/20 @ 14:[address] Andres Peres MD) Pneumonia due to COVID-19 virus (Acute) Covid with hypoxia. Sx started around 03/06, came to ED that day with fever, dysuria. Ucx neg, given bactrim, now dysuria resolved. Had TURP 01/31/[address] Peres. Covid Ag 03/09, on remdesivir, will change dex to po. Will follow, thank you
[2020-03-10 13:18] LABS: Pathologist Review Reviewed
[2020-03-10 13:18] LABS: Pathologist Review Reviewed
--- NOTE | 2020-03-10 13:28 | CASEMGMT ---
RN CM Assessment Note Introduced role of CM to patient via phone to room. Demographics, PCP verified. The patient states he lives independently at home and no care needs prior to admission. Pt has daughters who are able to assist with bringing groceries, and patient is able to isolate @ home. COVID TESTING: [facility] Positive 03/09/20 Presentation: shortness of breath. Diagnosis: COVID 19 PCP: Dr. Gr Specialists: Dr. Loera, cardiology; Dr. Peres, urology Insurance: [facility] Preferred Pharmacy: [facility] Prescription Benefit: yes LNOK: Daughter Jennifer Contreras Living Arrangements: Lives Tranportation: drives or family can drive DME: cane, walker- does not use. If oxygen needed, any [facility] DME provider acceptable. Per [facility] HMO: [employer], [employer] HHC: none SNF: none Patient DC Goals: home DC Plan: home on discharge. PT/OT evaluations pending. Will need to follow for discharge needs and oxygen on dc. CM available for discharge planning coordination. Contact CM for any concerns/needs that may arise. Cy VEGA RN ACM
[2020-03-10] MEDS: guaiFENesin 10 ML UDC (200MG/10ML) PO (15:54)
--- NOTE | 2020-03-10 19:49 | PN_ITS ---
Patient Problems: Active and Suspected Problems (Last Reviewed 01/31/20 @ 14:[address] Andres Peres MD) Pneumonia due to COVID-19 virus (Acute) Subjective: Pt is sitting up in a chair. Has no specific complaints. Is coughing some but not drastically. Is on 5 L nc. Vitals/I&O's: Vital Signs Temp Pulse Resp BP Pulse Ox 98.0 F 64 19 H 113/57 L 93 03/10/20 18:00 03/10/20 19:01 03/10/20 18:00 03/10/20 18:00 03/10/20 18:00 Oxygen Flow Rate (L/min) 5 Oxygen Delivery Method Nasal Cannula Weight: 83.733 kg Body Mass Index (BMI) 26.4 Finger Stick Blood Glucose 123 Intake and Output for Last 24 Hours 03/08/20 03/09/20 03/10/20 23:59 23:59 23:59 Intake Total 1454.85 / 1454.85 1730 / 1730 Output Total 400 / 400 2495 / 2495 Balance 1054.85 / 1054.85 -765 / -765 General: Alert, Oriented x3, Cooperative, No apparent distress, Well developed, Well nourished, - - elderly WM, sitting up in a chair and appears comfortable, on dyspnea on converstation HEENT: Atraumatic, Normocephalic Oral: Moist Mucosa, No Gingival or Mucosal Lesions/ Ulcerations Neck: Supple, Trachea Midline Lungs: Clear to auscultation, No rhonchi, No wheeze, No rales, Diminished Cardiovascular: Regular rate, Regular Rhythm, Normal S1, Normal S2, No murmurs, No Ectopic Activity, No rub noted, No Gallop Abdomen: Bowel Sounds Present, Soft, Non Tender, Non-Distended, No hernias noted Extremities: No clubbing, No cyanosis, No edema, Capillary Refill Less than 3 Seconds, Peripheral Pulses Normal Neurological: Cranial nerves II-XII grossly intact, Neuro grossly intact Psych/Mental Status: Normal Affect, Appropriate Microbiology Past 72 Hours 03/09/20 18:59 Mucosa - Nose SARS-CoV-2 Antigen (Rapid) - Final SARS-CoV-2 (COVID 19) Laboratory Results 03/09/20 19:19: Absolute Neuts (auto) 9.8 H, Absolute Lymphs (auto) 2.73, Total Counted 100, Neutrophils % (Manual) 69, Band Neutrophils % 6 H, Lymphocytes % (Manual) 21, Monocytes % (Manual) 4, Diff Path Review Reviewed, Platelet Estimate SLT DEC, RBC Morphology N CYTIC, Hypochromasia 1+ 03/09/20 19:19: Sodium 132 L, Potassium 4.1, Chloride 102, Carbon Dioxide 24.0, Anion Gap 6, BUN 33 H, Creatinine 1.71 H, Estim Creat Clear Calc 34.39, Est GFR (MDRD) Af Amer 50 L, Est GFR (MDRD) Non-Af 41 L, BUN/Creatinine Ratio 19.3, Glucose 122 H, Calcium 7.6 L, Total Bilirubin 0.40, AST 48 H, ALT 27, Alkaline Phosphatase 80, Total Protein 6.2 L, Albumin 2.7 L, Globulin 3.5, Albumin/Globulin Ratio 0.8 L 03/09/20 19:19: Lactic Acid 1.1 03/09/20 19:19: D-Dimer Quant (PE/DVT) 0.86 H* 03/09/20 19:19: Lactate Dehydrogenase 254 H, Total Creatine Kinase 45, Troponin I < 0.015 03/09/20 19:19: B-Natriuretic Peptide 172.6 H 03/09/20 22:55: Urine Color Yellow, Urine Clarity Clear, Urine pH 6.0, Ur Specific [place] 1.010, Urine Protein 30 H, Urine Glucose (UA) Normal, Urine Ketones Negative, Urine Occult Blood 150 H, Urine Nitrite Negative, Urine Bilirubin Negative, Urine Urobilinogen Normal, Ur Leukocyte Esterase 25 H, Urine RBC 0-5 SEEN, Urine WBC 10-25 SEEN, Ur Squamous Epith Cells 0 SEEN, Urine Bacteria 1+, Urine Mucus 0 SEEN 03/10/20 05:30: WBC 3.3 L, RBC 2.89 L, Hgb 8.5 L, Hct 26.6 L, MCV 92.0, MCH 29.4, MCHC 32.0, RDW Std Deviation 47.9 H, RDW Coeff of [place] 14.1, Plt Count 105 L, MPV 9.5, Neut % (Auto) Not Reportable, Absolute Neuts (auto) 2.3, Absolute Lymphs (auto) 0.72 L, Total Counted 100, Neutrophils % (Manual) 64, Band Neutrophils % 7 H, Lymphocytes % (Manual) 22, Monocytes % (Manual) 1, Basophils % (Manual) 1, Metamyelocytes % 4 H, Myelocytes % 1 H, Diff Path Review Reviewed, Atypical Lymphocytes 1+, Toxic Granulation 1+, Platelet Estimate SLT DEC, Hyp ochromasia RARE 03/10/20 05:30: Sodium 136, Potassium 4.1, Chloride 107, Carbon Dioxide 23.0, Anion Gap 6, BUN 27 H, Creatinine 1.43 H, Estim Creat Clear Calc 41.12, Est GFR (MDRD) Af Amer 61, Est GFR (MDRD) Non-Af 50 L, BUN/Creatinine Ratio 18.9, Glucose 260 H, Calcium 7.7 L, Total Bilirubin 0.30, AST 72 H, ALT 41, Alkaline Phosphatase 88, Total Protein 6.1 L, Albumin 2.4 L, Globulin 3.7, Albumin/Globulin Ratio 0.6 L Current Medications Acetaminophen (Acetaminophen 325 Mg Tablet) 650 mg PO Q6H PRN PRN PRN Reason: Pain Score 1-10/Temp > 100.7 F Albuterol Sulfate (Albuterol Ih 8.5 Gm (Proair) Inhaler (200 Puffs)) 2 puff INHALATION Q4H PRN PRN PRN Reason: Shortness of breath, wheezing Aspirin (Aspirin E.C. 81 Mg Tablet) 81 mg PO DAILY [facility] Last Admin: 03/10/20 10:00 Dose: 81 mg Documented by: Atorvastatin Calcium (Atorvastatin Calcium 40 Mg Tablet) 40 mg PO QHS [facility] Last Admin: 03/09/20 23:42 Dose: 40 mg Documented by: Carvedilol (Carvedilol 3.125 Mg Tablet) 3.125 mg PO BID [facility] Last Admin: 03/10/20 10:00 Dose: 3.125 mg Documented by: Dexamethasone (Dexamethasone 4 Mg Tablet) 6 mg PO DAILY [facility] Stop: 03/18/20 10:01 Last Admin: 03/10/20 10:00 Dose: 6 mg Documented by: Enoxaparin Sodium (Enoxaparin 30 Mg/0.3 Ml Syringe) 30 mg SC BID [facility] Last Admin: 03/10/20 10:01 Dose: 30 mg Documented by: Finasteride (Finasteride 5 Mg Tablet) 5 mg PO DAILY [facility] Last Admin: 03/10/20 10:01 Dose: 5 mg Documented by: Guaifenesin (Guaifenesin 10 Ml Udc (200mg/10ml)) 10 ml PO Q4H PRN PRN PRN Reason: COUGH Last Admin: 03/10/20 15:54 Dose: 10 ml Documented by: Remdesivir 100 mg/ Sodium (Chloride) 250 mls @ 125 mls/hr IV DAILY@2200 [facility]EL Stop: 03/13/20 23:59 Sodium Chloride () 250 mls @ 15 mls/hr IV .[id number] PRN PRN Reason: Saline Flush Insulin Glargine (Insulin Glargine 100 Units/Ml Pen) 10 units SC BREAKFAST MICHAEL Levothyroxine Sodium (Levothyroxine 75 Mcg Tablet) 75 mcg PO DAILY [facility] Last Admin: 03/10/20 10:01 Dose: 75 mcg Documented by: Ondansetron HCl (Ondansetron 4 Mg/2 Ml Vial) 4 mg IV Q8H PRN PRN PRN Reason: NAUSEA/VOMITING Senna/Docusate Sodium (Senna/Docusate Sodium 1 Tablet) 2 tablet PO BID PRN PRN PRN Reason: Constipation Sodium Chloride (0.9% Saline Lock 10 Ml Syringe) 10 - 40 ml IV UD PRN PRN Reason: SALINE FLUSH Zolpidem Tartrate (Zolpidem Tartrate 5 Mg Tablet) 5 mg PO QHS PRN PRN PRN Reason: INSOMNIA STROKE Vital Signs/Narrative: Vital Signs Temp Pulse Resp BP Pulse Ox 03/10/20 19:01 64 03/10/20 18:00 98.0 F 58 L 19 H 113/57 L 93 03/10/20 17:49 84 03/10/20 16:50 28 H 94 Medical Necessity - Tobacco Use Smoking Status: Former smoker Assessment/Plan All Active Problems (Last Reviewed 01/31/20 @ 14:[address] Andres Peres MD) Pneumonia due to COVID-19 virus (Acute) Acute Respiratory Failure 2/2 COVID PNA -supportive care -sx started 03/06 -remdesivir and decadron day 2 -loveonox BID -ID following BPH s/p TURP 01/31/2020 -continue avodat -no current issues Pancytopenia-?chronic -Fe supplementation -? MDS -should be seen by Heme onc as outpt if counts don't resolve RACHEL on CKD -KI resolved and sCr appears to be close to baseline -monitor CAD/HTN/HPL -h/o stent placement -continue BB/ASA and statin -trop was WNL DM-2 -take no meds at baseline -add lantus 10 u while on decadron for elevated BGT Hypothyroidism -continue synthroid DVT prophylaxis Lovenox Code Status -Pt still unsure and thinking about this Inpatient E&M: 17883 Subs Hosp L2
[2020-03-10] MEDS: Atorvastatin Calcium 40 MG Tablet PO (22:08)
[2020-03-11] VITALS (11 sets, daily range): BP systolic 114–168; BP diastolic 59–89; PULSE 51–62; RESP 16–24; TEMP 36.1–36.6; O2SAT 89–94
[2020-03-11 07:00] LABS: Hemoglobin 9.1 g/dL (13.0-16.5); Mean Corp Hgb Conc 32.5 g/dL (32-36); Mean Corpuscular Hgb 29.6 pg (27.0-32.0); Mean Corpuscular Volume 91.2 fL (80-94); Platelet Count 138 K/mm3 (150-450); RBC Distribution Width CV 14.3 % (11.6-14.6); RBC Distribution Width SD 47.7 fl (35.1-43.9); Red Blood Count 3.07 M/mm3 (4.6-6.2); White Blood Count 4.4 K/mm3 (4.4-11.0)
[2020-03-11 07:33] LABS: ALB/GLOB Ratio 0.8 RATIO (0.9-2.4); AST(SGOT) 66 U/L (15-37); Alanine Aminotransfer ALT/SGPT 46 U/L (16-61); Albumin, Serum 2.5 g/dL (3.2-5.0); Alkaline Phosphatase 84 U/L (45-117); Anion Gap 7 (5-15); BUN 32 mg/dL (7-18); BUN/Creat Ratio 27.4 RATIO (10-20); Calcium,Total 8.1 mg/dL (8.5-10.1); Chloride 108 mmol/L (98-107); Creatinine, Serum 1.17 mg/dL (0.70-1.30); EST Glomerular Filtration Rate 63 mL/min (>60); Est Glom Filt Rate - Afr Amer 77 mL/min (>60); Estimated Creatinine Clearance 50.26 ml/min; Globulin 3.2 g/dL (2.2-4.2); Glucose 184 mg/dL (74-106); Potassium 4.8 mmol/L (3.5-5.1); Protein, Total 5.7 g/dL (6.4-8.2); Sodium Level 138 mmol/L (136-145)
[2020-03-11] MEDS: Enoxaparin 30 MG/0.3 ML Syringe SC ×2 (08:20→23:21)
[2020-03-11] MEDS: Levothyroxine 75 MCG Tablet PO (08:21)
[2020-03-11] MEDS: Aspirin E.C. 81 MG Tablet PO (08:21)
[2020-03-11] MEDS: dexAMETHasone 4 MG Tablet 6 MG PO (08:21)
[2020-03-11] MEDS: Carvedilol 3.125 MG TABLET PO (08:21)
[2020-03-11] MEDS: Finasteride 5 MG Tablet PO (08:22)
[2020-03-11 12:05] LABS: Bedside Glucose 197 mg/dL (70-110)
--- NOTE | 2020-03-11 13:32 | PCM.PN.HOSP ---
Patient Problems: Active and Suspected Problems (Last Reviewed 01/31/20 @ 14:[address] Andres Peres MD) Pneumonia due to COVID-19 virus (Acute) Reason for Visit: COVID 19 Subjective: Breathing well. Anxious to go home. Vitals/I&O's: Vital Signs Temp Pulse Resp BP Pulse Ox 36.1 C L 62 20 H 122/59 H 93 03/11/20 08:15 03/11/20 10:51 03/11/20 08:15 03/11/20 08:15 03/11/20 08:15 Oxygen Flow Rate (L/min) 6 Oxygen Delivery Method Nasal Cannula Weight: 83.733 kg Body Mass Index (BMI) 26.4 Finger Stick Blood Glucose 123 Intake and Output for Last 24 Hours 03/09/20 03/10/20 03/11/20 23:59 23:59 23:59 Intake Total 1454.85 / 1454.85 1730 / 1730 250 / 250 Output Total 400 / 400 2495 / 2695 200 / 200 Balance 1054.85 / 1054.85 -765 / -965 50 / 50 General: Alert, No apparent distress HEENT: Atraumatic, Normocephalic Oral: Moist Mucosa, No Gingival or Mucosal Lesions/ Ulcerations Neck: No Nodes, Thyroid Normal Size and Texture Lungs: Clear to auscultation, Normal air movement, No rhonchi, No wheeze, No rales Cardiovascular: Regular rate, Regular Rhythm, Normal S1, Normal S2, No murmurs Abdomen: Bowel Sounds Present, Soft, Non Tender, Non-Distended, No Hepato-splenomegaly Extremities: No edema, No Calf Tenderness Psych/Mental Status: Normal Affect, Appropriate Microbiology Past 72 Hours 03/09/20 22:55 Urine, Catheterized Urine Culture - Preliminary Culture exhibits no growth. 03/09/20 18:59 Mucosa - Nose SARS-CoV-2 Antigen (Rapid) - Final SARS-CoV-2 (COVID 19) Laboratory Results 03/11/20 06:45: WBC 4.4, RBC 3.07 L, Hgb 9.1 L, Hct 28.0 L, MCV 91.2, MCH 29.6, MCHC 32.5, RDW Std Deviation 47.7 H, RDW Coeff of [place] 14.3, Plt Count 138 L, MPV 10.0 03/11/20 06:45: Sodium 138, Potassium 4.8, Chloride 108 H, Carbon Dioxide 23.0, Anion Gap 7, BUN 32 H, Creatinine 1.17, Estim Creat Clear Calc 50.26, Est GFR (MDRD) Af Amer 77, Est GFR (MDRD) Non-Af 63, BUN/Creatinine Ratio 27.4 H, Glucose 184 H, Calcium 8.1 L, Total Bilirubin 0.30, AST 66 H, ALT 46, Alkaline Phosphatase 84, Total Protein 5.7 L, Albumin 2.5 L, Globulin 3.2, Albumin/Globulin Ratio 0.8 L 03/11/20 09:53: POC Glucose 197 H Current Medications Acetaminophen (Acetaminophen 325 Mg Tablet) 650 mg PO Q6H PRN PRN PRN Reason: Pain Score 1-10/Temp > 100.7 F Albuterol Sulfate (Albuterol Ih 8.5 Gm (Proair) Inhaler (200 Puffs)) 2 puff INHALATION Q4H PRN PRN PRN Reason: Shortness of breath, wheezing Aspirin (Aspirin E.C. 81 Mg Tablet) 81 mg PO DAILY [facility] Last Admin: 03/11/20 08:21 Dose: 81 mg Documented by: Atorvastatin Calcium (Atorvastatin Calcium 40 Mg Tablet) 40 mg PO QHS [facility] Last Admin: 03/10/20 22:08 Dose: 40 mg Documented by: Carvedilol (Carvedilol 3.125 Mg Tablet) 3.125 mg PO BID [facility] Last Admin: 03/11/20 08:21 Dose: 3.125 mg Documented by: Dexamethasone (Dexamethasone 4 Mg Tablet) 6 mg PO DAILY [facility] Stop: 03/18/20 10:01 Last Admin: 03/11/20 08:21 Dose: 6 mg Documented by: Enoxaparin Sodium (Enoxaparin 30 Mg/0.3 Ml Syringe) 30 mg SC BID [facility] Last Admin: 03/11/20 08:20 Dose: 30 mg Documented by: Finasteride (Finasteride 5 Mg Tablet) 5 mg PO DAILY [facility] Last Admin: 03/11/20 08:22 Dose: 5 mg Documented by: Guaifenesin (Guaifenesin 10 Ml Udc (200mg/10ml)) 10 ml PO Q4H PRN PRN PRN Reason: COUGH Last Admin: 03/10/20 15:54 Dose: 10 ml Documented by: Remdesivir 100 mg/ Sodium (Chloride) 250 mls @ 125 mls/hr IV DAILY@2200 [facility] Stop: 03/13/20 23:59 Last Infusion: 03/11/20 00:20 Dose: Infused Documented by: Sodium Chloride () 250 mls @ 15 mls/hr IV .[id number] PRN PRN Reason: Saline Flush Insulin Glargine (Insulin Glargine 100 Units/Ml Pen) 10 units SC BREAKFAST [facility] Last Admin: 03/11/20 09:56 Dose: 10 u Documented by: Levothyroxine Sodium (Levothyroxine 75 Mcg Tablet) 75 mcg PO DAILY [facility] Last Admin: 03/11/20 08:21 Dose: 75 mcg Documented by: Ondansetron HCl (Ondansetron 4 Mg/2 Ml Vial) 4 mg IV Q8H PRN PRN PRN Reason: NAUSEA/VOMITING Senna/Docusate Sodium (Senna/Docusate Sodium 1 Tablet) 2 tablet PO BID PRN PRN PRN Reason: Constipation Sodium Chloride (0.9% Saline Lock 10 Ml Syringe) 10 - 40 ml IV UD PRN PRN Reason: SALINE FLUSH Zolpidem Tartrate (Zolpidem Tartrate 5 Mg Tablet) 5 mg PO QHS PRN PRN PRN Reason: INSOMNIA STROKE Vital Signs/Narrative: Vital Signs Pulse 03/11/20 10:51 62 Medical Necessity - Tobacco Use Smoking Status: Former smoker Assessment/Plan All Active Problems (Last Reviewed 01/31/20 @ 14:[address] Andres Peres MD) Pneumonia due to COVID-19 virus (Acute) 1. Acute COVID 19 pneumonia on dexa and rem-d 2. Acute hypoxic respiratory failure 2/2 above on 6 liters told patient that will need to wean oxygen prior to DC 3. RACHEL resolved 4. DM2 on glargine add SSI 5. VTE prophylaxis: LMWH Inpatient E&M: 48219 Subs Hosp L2
--- NOTE | 2020-03-11 16:21 | PN.ID_ITS ---
Patient Problems: Active and Suspected Problems (Last Reviewed 01/31/20 @ 14:[address] Andres Peres MD) Pneumonia due to COVID-19 virus (Acute) Subjective: Breathing better, no fever, no n/v/d - Physical Exam Vitals/I&O's: Vital Signs Temp Pulse Resp BP Pulse Ox 97.6 F L 59 L 18 114/66 93 03/11/20 14:35 03/11/20 14:35 03/11/20 14:35 03/11/20 14:35 03/11/20 15:43 Oxygen Flow Rate (L/min) 9 Oxygen Delivery Method Nasal Cannula Weight: 83.733 kg Body Mass Index (BMI) 26.4 Finger Stick Blood Glucose 123 Intake and Output for Last 24 Hours 03/09/20 03/10/20 03/11/20 23:59 23:59 23:59 Intake Total 1454.85 / 1454.85 1730 / 1730 550 / 550 Output Total 400 / 400 2495 / 2695 800 / 800 Balance 1054.85 / 1054.85 -765 / -965 -250 / -250 General: Alert, Cooperative, No apparent distress Lungs: Clear to auscultation, Diminished Cardiovascular: Regular rate, Regular Rhythm Abdomen: Soft, Non Tender, Non-Distended Skin: No rashes Microbiology Past 72 Hours 03/09/20 22:55 Urine, Catheterized Urine Culture - Preliminary Culture exhibits no growth. 03/09/20 18:59 Mucosa - Nose SARS-CoV-2 Antigen (Rapid) - Final SARS-CoV-2 (COVID 19) Laboratory Results 03/11/20 06:45: WBC 4.4, RBC 3.07 L, Hgb 9.1 L, Hct 28.0 L, MCV 91.2, MCH 29.6, MCHC 32.5, RDW Std Deviation 47.7 H, RDW Coeff of Lamont 14.3, Plt Count 138 L, MPV 10.0 03/11/20 06:45: Sodium 138, Potassium 4.8, Chloride 108 H, Carbon Dioxide 23.0, Anion Gap 7, BUN 32 H, Creatinine 1.17, Estim Creat Clear Calc 50.26, Est GFR (MDRD) Af Amer 77, Est GFR (MDRD) Non-Af 63, BUN/Creatinine Ratio 27.4 H, Glucose 184 H, Calcium 8.1 L, Total Bilirubin 0.30, AST 66 H, ALT 46, Alkaline Phosphatase 84, Total Protein 5.7 L, Albumin 2.5 L, Globulin 3.2, Albumin/Globulin Ratio 0.8 L 03/11/20 09:53: POC Glucose 197 H Current Medications Acetaminophen (Acetaminophen 325 Mg Tablet) 650 mg PO Q6H PRN PRN PRN Reason: Pain Score 1-10/Temp > 100.7 F Albuterol Sulfate (Albuterol Ih 8.5 Gm (Proair) Inhaler (200 Puffs)) 2 puff INHALATION Q4H PRN PRN PRN Reason: Shortness of breath, wheezing Aspirin (Aspirin E.C. 81 Mg Tablet) 81 mg PO DAILY [facility] Last Admin: 03/11/20 08:21 Dose: 81 mg Documented by: Atorvastatin Calcium (Atorvastatin Calcium 40 Mg Tablet) 40 mg PO QHS [facility] Last Admin: 03/10/20 22:08 Dose: 40 mg Documented by: Calamine/Phenol (Menthol/Lanolin/Calamine/Znox 113 Gm Tube) 1 applic TOPICAL BID [facility]; Protocol Carvedilol (Carvedilol 3.125 Mg Tablet) 3.125 mg PO BID [facility] Last Admin: 03/11/20 08:21 Dose: 3.125 mg Documented by: Dexamethasone (Dexamethasone 4 Mg Tablet) 6 mg PO DAILY [facility] Stop: 03/18/20 10:01 Last Admin: 03/11/20 08:21 Dose: 6 mg Documented by: Dextrose (Dextrose 50%-Water 25 Gm/50 Ml Disp.Syrin) 0 gm IV X1 PRN; Protocol PRN Reason: Hypoglycemia Enoxaparin Sodium (Enoxaparin 30 Mg/0.3 Ml Syringe) 30 mg SC BID [facility] Last Admin: 03/11/20 08:20 Dose: 30 mg Documented by: Finasteride (Finasteride 5 Mg Tablet) 5 mg PO DAILY [facility] Last Admin: 03/11/20 08:22 Dose: 5 mg Documented by: Glucagon (Glucagon 1 Mg/Ml Syringe) 1 mg IM .X1 PRN PRN Reason: Hypoglycemia Guaifenesin (Guaifenesin 10 Ml Udc (200mg/10ml)) 10 ml PO Q4H PRN PRN PRN Reason: COUGH Last Admin: 03/10/20 15:54 Dose: 10 ml Documented by: Remdesivir 100 mg/ Sodium (Chloride) 250 mls @ 125 mls/hr IV DAILY@2200 [facility] Stop: 03/13/20 23:59 Last Infusion: 03/11/20 00:20 Dose: Infused Documented by: Sodium Chloride () 250 mls @ 15 mls/hr IV .[id number] PRN PRN Reason: Saline Flush Insulin Glargine (Insulin Glargine 100 Units/Ml Pen) 10 units SC BREAKFAST [facility] Last Admin: 03/11/20 09:56 Dose: 10 u Documented by: Insulin Human Lispro (Insulin Lispro 100 Unit/Ml Insuln.Pen) 0 unit SC TIDAC [facility]; Protocol Levothyroxine Sodium (Levothyroxine 75 Mcg Tablet) 75 mcg PO DAILY [facility] Last Admin: 03/11/20 08:21 Dose: 75 mcg Documented by: Ondansetron HCl (Ondansetron 4 Mg/2 Ml Vial) 4 mg IV Q8H PRN PRN PRN Reason: NAUSEA/VOMITING Senna/Docusate Sodium (Senna/Docusate Sodium 1 Tablet) 2 tablet PO BID PRN PRN PRN Reason: Constipation Sodium Chloride (0.9% Saline Lock 10 Ml Syringe) 10 - 40 ml IV UD PRN PRN Reason: SALINE FLUSH Zolpidem Tartrate (Zolpidem Tartrate 5 Mg Tablet) 5 mg PO QHS PRN PRN PRN Reason: INSOMNIA Medical Necessity - Tobacco Use Smoking Status: Former smoker Route of nutrition/ use of supplements: [] Nutritional Intake: [] IV Site: [] Mills Catheter: [] - Assessment/Plan Antibiotics: [] Assessment/Plan: [] Active and Suspected Problems (Last Reviewed 01/31/20 @ 14:[address] Andres Peres MD) Pneumonia due to COVID-19 virus (Acute) Covid with hypoxia. Sx started around 03/06, came to ED that day with fever, dysuria. Ucx neg, given bactrim, now dysuria resolved. Had TURP 01/31/[address] Peres. D-dimer 0.8. Covid Ag 03/09, on remdesivir and dex. Ucx neg here so far. Plan on quarantine until 03/26/20. Complete 10 days of dex. Plan on 2 weeks of xarelto 10mg daily or eliquis 2.5mg bid after discharge. Will follow
[2020-03-11] MEDS: Insulin Lispro 100 UNIT/ML INSULN.PEN SC (18:00)
[2020-03-11 18:01] LABS: Bedside Glucose 180 mg/dL (70-110)
[2020-03-11] MEDS: Menthol/Lanolin/Calamine/Znox 113 GM Tube 1 APPLIC TOPICAL (23:24)
[2020-03-11] MEDS: Atorvastatin Calcium 40 MG Tablet PO (23:25)
[2020-03-12] VITALS (10 sets, daily range): BP systolic 132–151; BP diastolic 67–76; PULSE 50–65; RESP 18–28; TEMP 35.8–36.8; O2SAT 91–99
[2020-03-12 02:56] LABS: Bedside Glucose 185 mg/dL (70-110)
[2020-03-12 06:26] LABS: Hematocrit 32.1 % (40-54); Hemoglobin 10.3 g/dL (13.0-16.5); Mean Corp Hgb Conc 32.1 g/dL (32-36); Mean Corpuscular Hgb 29.8 pg (27.0-32.0); Mean Corpuscular Volume 92.8 fL (80-94); Mean Platelet Vol. 9.9 fl (6.2-12.0); Platelet Count 189 K/mm3 (150-450); RBC Distribution Width SD 47.8 fl (35.1-43.9); Red Blood Count 3.46 M/mm3 (4.6-6.2); White Blood Count 5.5 K/mm3 (4.4-11.0)
[2020-03-12 06:59] LABS: ALB/GLOB Ratio 0.8 RATIO (0.9-2.4); AST(SGOT) 82 U/L (15-37); Alanine Aminotransfer ALT/SGPT 69 U/L (16-61); Albumin, Serum 2.7 g/dL (3.2-5.0); Alkaline Phosphatase 89 U/L (45-117); Anion Gap 7 (5-15); BUN 33 mg/dL (7-18); BUN/Creat Ratio 30.8 RATIO (10-20); Chloride 107 mmol/L (98-107); Creatinine, Serum 1.07 mg/dL (0.70-1.30); EST Glomerular Filtration Rate 70 mL/min (>60); Est Glom Filt Rate - Afr Amer 85 mL/min (>60); Estimated Creatinine Clearance 54.96 ml/min; Globulin 3.5 g/dL (2.2-4.2); Glucose 153 mg/dL (74-106); Potassium 4.6 mmol/L (3.5-5.1); Protein, Total 6.2 g/dL (6.4-8.2); Sodium Level 139 mmol/L (136-145)
[2020-03-12 08:07] LABS: BNP,B-Type NATRIURETIC PEPTIDE 515.9 pg/mL (0-100)
[2020-03-12] MEDS: Enoxaparin 30 MG/0.3 ML Syringe SC ×2 (09:13→22:45)
[2020-03-12] MEDS: Aspirin E.C. 81 MG Tablet PO (09:14)
[2020-03-12] MEDS: Finasteride 5 MG Tablet PO (09:14)
[2020-03-12] MEDS: dexAMETHasone 4 MG Tablet 6 MG PO (09:14)
[2020-03-12] MEDS: Levothyroxine 75 MCG Tablet PO (09:14)
[2020-03-12] MEDS: Insulin Lispro 100 UNIT/ML INSULN.PEN SC ×3 (09:18→16:56)
[2020-03-12] MEDS: Menthol/Lanolin/Calamine/Znox 113 GM Tube 1 APPLIC TOPICAL ×2 (09:57→23:46)
[2020-03-12 10:06] LABS: Bedside Glucose 155 mg/dL (70-110)
--- NOTE | 2020-03-12 12:28 | CASEMGMT ---
RN CM Note: Pt is not ready for dc- is currently on 13 L NC. Green sheet on chart if Home with O2 this weekend. Pt did not wish to do PT/OT today. Will need to follow for any recommendations Cy VEGA RN ACM
--- NOTE | 2020-03-12 12:42 | PN.ID_ITS ---
Patient Problems: Active and Suspected Problems (Last Reviewed 01/31/20 @ 14:[address] Andres Peres MD) Pneumonia due to COVID-19 virus (Acute) Subjective: Breathing about the same, frustrated about worsening O2. No n/v/d. Minimal sputum. No fever. - Physical Exam Vitals/I&O's: Vital Signs Temp Pulse Resp BP Pulse Ox 98.2 F 54 L 19 H 145/73 H 93 03/12/20 09:08 03/12/20 09:08 03/12/20 09:08 03/12/20 09:08 03/12/20 09:39 Oxygen Flow Rate (L/min) 13 Oxygen Delivery Method Room Air Weight: 83.733 kg Body Mass Index (BMI) 26.4 Finger Stick Blood Glucose 123 Intake and Output for Last 24 Hours 03/10/20 03/11/20 03/12/20 23:59 23:59 23:59 Intake Total 1730 / 1730 790 / 790 250 / 250 Output Total 2495 / 2695 1000 / 1175 575 / 575 Balance -765 / -965 -210 / -385 -325 / -325 General: Alert, Cooperative, No apparent distress Lungs: Diminished Cardiovascular: Regular rate, Regular Rhythm Abdomen: Soft, Non Tender, Non-Distended Skin: No rashes Microbiology Past 72 Hours 03/09/20 22:55 Urine, Catheterized Urine Culture - Preliminary Mixed Gram Positive Organisms 03/09/20 19:29 Blood Culture (Wb) - Left Hand Blood Culture - Preliminary No growth in 48 hours. 03/09/20 19:19 Blood Culture (Wb) - Anticubital Left Blood Culture - Preliminary No growth in 48 hours. 03/09/20 18:59 Mucosa - Nose SARS-CoV-2 Antigen (Rapid) - Final SARS-CoV-2 (COVID 19) Laboratory Results 03/11/20 17:23: POC Glucose 180 H 03/11/20 23:36: POC Glucose 185 H 03/12/20 06:17: WBC 5.5, RBC 3.46 L, Hgb 10.3 L, Hct 32.1 L, MCV 92.8, MCH 29.8, MCHC 32.1, RDW Std Deviation 47.8 H, RDW Coeff of Lamont 14.0, Plt Count 189, MPV 9.9 03/12/20 06:17: Sodium 139, Potassium 4.6, Chloride 107, Carbon Dioxide 25.0, Anion Gap 7, BUN 33 H, Creatinine 1.07, Estim Creat Clear Calc 54.96, Est GFR (MDRD) Af Amer 85, Est GFR (MDRD) Non-Af 70, BUN/Creatinine Ratio 30.8 H, Glucose 153 H, Calcium 8.0 L, Total Bilirubin 0.30, AST 82 H, ALT 69 H, Alkaline Phosphatase 89, Total Protein 6.2 L, Albumin 2.7 L, Globulin 3.5, Albumin/Globulin Ratio 0.8 L 03/12/20 06:17: B-Natriuretic Peptide 515.9 H 03/12/20 09:12: POC Glucose 155 H Current Medications Acetaminophen (Acetaminophen 325 Mg Tablet) 650 mg PO Q6H PRN PRN PRN Reason: Pain Score 1-10/Temp > 100.7 F Albuterol Sulfate (Albuterol Ih 8.5 Gm (Proair) Inhaler (200 Puffs)) 2 puff INHALATION Q4H PRN PRN PRN Reason: Shortness of breath, wheezing Last Admin: 03/12/20 06:19 Dose: 2 puff Documented by: Aspirin (Aspirin E.C. 81 Mg Tablet) 81 mg PO DAILY [facility] Last Admin: 03/12/20 09:14 Dose: 81 mg Documented by: Atorvastatin Calcium (Atorvastatin Calcium 40 Mg Tablet) 40 mg PO QHS [facility] Last Admin: 03/11/20 23:25 Dose: 40 mg Documented by: Calamine/Phenol (Menthol/Lanolin/Calamine/Znox 113 Gm Tube) 1 applic TOPICAL BID [facility]; Protocol Last Admin: 03/12/20 09:57 Dose: 1 applicatio Documented by: Carvedilol (Carvedilol 3.125 Mg Tablet) 3.125 mg PO BID [facility] Last Admin: 03/12/20 11:03 Dose: Not Given Documented by: Dexamethasone (Dexamethasone 4 Mg Tablet) 6 mg PO DAILY [facility] Stop: 03/18/20 10:01 Last Admin: 03/12/20 09:14 Dose: 6 mg Documented by: Dextrose (Dextrose 50%-Water 25 Gm/50 Ml Disp.Syrin) 0 gm IV X1 PRN; Protocol PRN Reason: Hypoglycemia Enoxaparin Sodium (Enoxaparin 30 Mg/0.3 Ml Syringe) 30 mg SC BID [facility] Last Admin: 03/12/20 09:13 Dose: 30 mg Documented by: Finasteride (Finasteride 5 Mg Tablet) 5 mg PO DAILY [facility] Last Admin: 03/12/20 09:14 Dose: 5 mg Documented by: Glucagon (Glucagon 1 Mg/Ml Syringe) 1 mg IM .X1 PRN PRN Reason: Hypoglycemia Guaifenesin (Guaifenesin 10 Ml Udc (200mg/10ml)) 10 ml PO Q4H PRN PRN PRN Reason: COUGH Last Admin: 03/10/20 15:54 Dose: 10 ml Documented by: Remdesivir 100 mg/ Sodium (Chloride) 250 mls @ 125 mls/hr IV DAILY@2200 [facility] Stop: 03/13/20 23:59 Last Infusion: 03/12/20 02:28 Dose: Infused Documented by: Sodium Chloride () 250 mls @ 15 mls/hr IV .[id number] PRN PRN Reason: Saline Flush Insulin Glargine (Insulin Glargine 100 Units/Ml Pen) 10 units SC BREAKFAST [facility] Last Admin: 03/12/20 09:13 Dose: 10 u Documented by: Insulin Human Lispro (Insulin Lispro 100 Unit/Ml Insuln.Pen) 0 unit SC TIDAC [facility]; Protocol Last Admin: 03/12/20 09:18 Dose: 2 u Documented by: Levothyroxine Sodium (Levothyroxine 75 Mcg Tablet) 75 mcg PO DAILY [facility] Last Admin: 03/12/20 09:14 Dose: 75 mcg Documented by: Ondansetron HCl (Ondansetron 4 Mg/2 Ml Vial) 4 mg IV Q8H PRN PRN PRN Reason: NAUSEA/VOMITING Senna/Docusate Sodium (Senna/Docusate Sodium 1 Tablet) 2 tablet PO BID PRN PRN PRN Reason: Constipation Sodium Chloride (0.9% Saline Lock 10 Ml Syringe) 10 - 40 ml IV UD PRN PRN Reason: SALINE FLUSH Zolpidem Tartrate (Zolpidem Tartrate 5 Mg Tablet) 5 mg PO QHS PRN PRN PRN Reason: INSOMNIA Medical Necessity - Tobacco Use Smoking Status: Former smoker Route of nutrition/ use of supplements: [] Nutritional Intake: [] IV Site: [] Mills Catheter: [] - Assessment/Plan Antibiotics: [] Assessment/Plan: [] Active and Suspected Problems (Last Reviewed 01/31/20 @ 14:[address] Andres Peres MD) Pneumonia due to COVID-19 virus (Acute) Covid with hypoxia. Sx started around 03/06, came to ED that day with fever, dysuria. Ucx neg, given bactrim, now dysuria resolved. Had TURP 01/31/[address] Peres. D-dimer 0.8. Covid Ag 03/09, on remdesivir and dex. Ucx neg here. Worsening O2. BNP mildly elevated. Recommend trying diuresis or consulting pulm given high and worsening O2 reqs. Plan on quarantine until 03/26/20. Complete 10 days of dex. Plan on 2 weeks of xarelto 10mg daily or eliquis 2.5mg bid after discharge. Will follow, d/w Dr. Avina
[2020-03-12 13:00] LABS: Bedside Glucose 223 mg/dL (70-110)
--- NOTE | 2020-03-12 14:47 | PN_ITS ---
Patient Problems: Active and Suspected Problems (Last Reviewed 01/31/20 @ 14:[address] Andres Peres MD) Pneumonia due to COVID-19 virus (Acute) Reason for Visit: COVID 19 Subjective: Increased oxygen requirements. Told me that I ruined his day when I addressed code status with him. Vitals/I&O's: Vital Signs Temp Pulse Resp BP Pulse Ox 36.8 C 54 L 19 H 145/73 H 93 03/12/20 09:08 03/12/20 09:08 03/12/20 09:08 03/12/20 09:08 03/12/20 09:39 Oxygen Flow Rate (L/min) 13 Oxygen Delivery Method Room Air Weight: 83.733 kg Body Mass Index (BMI) 26.4 Finger Stick Blood Glucose 123 Intake and Output for Last 24 Hours 03/10/20 03/11/20 03/12/20 23:59 23:59 23:59 Intake Total 1730 / 1730 790 / 790 490 / 490 Output Total 2495 / 2695 1000 / 1175 1025 / 1025 Balance -765 / -965 -210 / -385 -535 / -535 General: Alert, No apparent distress, - - on high-flow oxygen. No conversational dyspnea. no resp distress. HEENT: Atraumatic, Normocephalic Oral: Moist Mucosa, No Gingival or Mucosal Lesions/ Ulcerations Neck: No Nodes, Thyroid Normal Size and Texture Lungs: Normal air movement, - - bibasilar crackles. Cardiovascular: Regular rate, Regular Rhythm, Normal S1, Normal S2 Abdomen: Bowel Sounds Present, Soft, Non Tender, Non-Distended Extremities: No edema, No Calf Tenderness Skin: No rashes, No breakdown Psych/Mental Status: Appropriate, Anxious Microbiology Past 72 Hours 03/09/20 22:55 Urine, Catheterized Urine Culture - Preliminary Mixed Gram Positive Organisms 03/09/20 19:29 Blood Culture (Wb) - Left Hand Blood Culture - Preliminary No growth in 48 hours. 03/09/20 19:19 Blood Culture (Wb) - Anticubital Left Blood Culture - Pr eliminary No growth in 48 hours. 03/09/20 18:59 Mucosa - Nose SARS-CoV-2 Antigen (Rapid) - Final SARS-CoV-2 (COVID 19) Laboratory Results 03/11/20 17:23: POC Glucose 180 H 03/11/20 23:36: POC Glucose 185 H 03/12/20 06:17: WBC 5.5, RBC 3.46 L, Hgb 10.3 L, Hct 32.1 L, MCV 92.8, MCH 29.8, MCHC 32.1, RDW Std Deviation 47.8 H, RDW Coeff of Lamont 14.0, Plt Count 189, MPV 9.9 03/12/20 06:17: Sodium 139, Potassium 4.6, Chloride 107, Carbon Dioxide 25.0, Anion Gap 7, BUN 33 H, Creatinine 1.07, Estim Creat Clear Calc 54.96, Est GFR (MDRD) Af Amer 85, Est GFR (MDRD) Non-Af 70, BUN/Creatinine Ratio 30.8 H, Glucose 153 H, Calcium 8.0 L, Total Bilirubin 0.30, AST 82 H, ALT 69 H, Alkaline Phosphatase 89, Total Protein 6.2 L, Albumin 2.7 L, Globulin 3.5, Albumin/Globulin Ratio 0.8 L 03/12/20 06:17: B-Natriuretic Peptide 515.9 H 03/12/20 09:12: POC Glucose 155 H 03/12/20 12:49: POC Glucose 223 H Current Medications Acetaminophen (Acetaminophen 325 Mg Tablet) 650 mg PO Q6H PRN PRN PRN Reason: Pain Score 1-10/Temp > 100.7 F Albuterol Sulfate (Albuterol Ih 8.5 Gm (Proair) Inhaler (200 Puffs)) 2 puff INHALATION Q4H PRN PRN PRN Reason: Shortness of breath, wheezing Last Admin: 03/12/20 06:19 Dose: 2 puff Documented by: Aspirin (Aspirin E.C. 81 Mg Tablet) 81 mg PO DAILY [facility] Last Admin: 03/12/20 09:14 Dose: 81 mg Documented by: Atorvastatin Calcium (Atorvastatin Calcium 40 Mg Tablet) 40 mg PO QHS [facility] Last Admin: 03/11/20 23:25 Dose: 40 mg Documented by: Calamine/Phenol (Menthol/Lanolin/Calamine/Znox 113 Gm Tube) 1 applic TOPICAL BID [facility]; Protocol Last Admin: 03/12/20 09:57 Dose: 1 applicatio Documented by: Carvedilol (Carvedilol 3.125 Mg Tablet) 3.125 mg PO BID [facility] Last Admin: 03/12/20 11:03 Dose: Not Given Documented by: Dexamethasone (Dexamethasone 4 Mg Tablet) 6 mg PO DAILY [facility] Stop: 03/18/20 10:01 Last Admin: 03/12/20 09:14 Dose: 6 mg Documented by: Dextrose (Dextrose 50%-Water 25 Gm/50 Ml Disp.Syrin) 0 gm IV X1 PRN; Protocol PRN Reason: Hypoglycemia Enoxaparin Sodium (Enoxaparin 30 Mg/0.3 Ml Syringe) 30 mg SC BID [facility] Last Admin: 03/12/20 09:13 Dose: 30 mg Documented by: Finasteride (Finasteride 5 Mg Tablet) 5 mg PO DAILY [facility] Last Admin: 03/12/20 09:14 Dose: 5 mg Documented by: Furosemide (Furosemide 40 Mg/4 Ml Vial) 40 mg IV BID@1000,1800 [facility] Glucagon (Glucagon 1 Mg/Ml Syringe) 1 mg IM .X1 PRN PRN Reason: Hypoglycemia Guaifenesin (Guaifenesin 10 Ml Udc (200mg/10ml)) 10 ml PO Q4H PRN PRN PRN Reason: COUGH Last Admin: 03/10/20 15:54 Dose: 10 ml Documented by: Remdesivir 100 mg/ Sodium (Chloride) 250 mls @ 125 mls/hr IV DAILY@2200 [facility] Stop: 03/13/20 23:59 Last Infusion: 03/12/20 02:28 Dose: Infused Documented by: Sodium Chloride () 250 mls @ 15 mls/hr IV .[id number] PRN PRN Reason: Saline Flush Insulin Glargine (Insulin Glargine 100 Units/Ml Pen) 10 units SC BREAKFAST [facility] Last Admin: 03/12/20 09:13 Dose: 10 u Documented by: Insulin Human Lispro (Insulin Lispro 100 Unit/Ml Insuln.Pen) 0 unit SC TIDAC [facility]; Protocol Last Admin: 03/12/20 12:50 Dose: 2 u Documented by: Levothyroxine Sodium (Levothyroxine 75 Mcg Tablet) 75 mcg PO DAILY [facility] Last Admin: 03/12/20 09:14 Dose: 75 mcg Documented by: Ondansetron HCl (Ondansetron 4 Mg/2 Ml Vial) 4 mg IV Q8H PRN PRN PRN Reason: NAUSEA/VOMITING Senna/Docusate Sodium (Senna/Docusate Sodium 1 Tablet) 2 tablet PO BID PRN PRN PRN Reason: Constipation Sodium Chloride (0.9% Saline Lock 10 Ml Syringe) 10 - 40 ml IV UD PRN PRN Reason: SALINE FLUSH Zolpidem Tartrate (Zolpidem Tartrate 5 Mg Tablet) 5 mg PO QHS PRN PRN PRN Reason: INSOMNIA Medical Necessity - Tobacco Use Smoking Status: Former smoker Assessment/Plan All Active Problems (Last Reviewed 01/31/20 @ 14:[address] Andres Peres MD) Pneumonia due to COVID-19 virus (Acute) 1. Acute COVID 19 pneumonia * on dexa and rem-d 2. Acute hypoxic respiratory failure * 2/2 above * up to 13 liters * diuretic challenge with furosemide 3. RACHEL * resolved 4. DM2 * fair control * on glargine * add SSI 5. VTE prophylaxis: LMWH [place] care planning: Spent an additional 20 minutes discussing advanced directives with patient. Patient was upset by me asking about CODE STATUS anterior ventilator. I explained to them that his oxygen requirements have gone up and that would want to ask in case he were to become to stay where he is not able to answer the questions. He initially stated that he would not want to be on a ventilator then I tried to ask him specific about CPR and he said that he would want that and then he merely change his mind and that he would want to be put on a ventilator if necessary. I told him that any decision he makes can be changed at any point in time. I told him that I would leave him as full CODE STATUS and that we would do CPR in the event of cardiopulmonary arrest if necessary. He expressed understanding. Inpatient E&M: 54952 Subs Hosp L2 Procedures: 57883 Advncd Care Plan 30 Min
[2020-03-12] MEDS: Furosemide 40 MG/4 ML Vial IV ×2 (14:49→18:04)
[2020-03-12 17:21] LABS: Bedside Glucose 261 mg/dL (70-110)
[2020-03-12] MEDS: Carvedilol 3.125 MG TABLET PO (22:45)
[2020-03-12] MEDS: Atorvastatin Calcium 40 MG Tablet PO (22:45)
[2020-03-12 23:36] LABS: Bedside Glucose 192 mg/dL (70-110)
[2020-03-13] VITALS (17 sets, daily range): BP systolic 96–144; BP diastolic 60–84; PULSE 49–70; RESP 18–22; TEMP 35.9–37.1; O2SAT 82–100
[2020-03-13 05:27] LABS: Hematocrit 30.7 % (40-54); Hemoglobin 9.7 g/dL (13.0-16.5); Mean Corp Hgb Conc 31.6 g/dL (32-36); Mean Corpuscular Hgb 28.5 pg (27.0-32.0); Mean Corpuscular Volume 90.3 fL (80-94); Mean Platelet Vol. 9.6 fl (6.2-12.0); Platelet Count 198 K/mm3 (150-450); RBC Distribution Width CV 13.9 % (11.6-14.6); RBC Distribution Width SD 46.3 fl (35.1-43.9); White Blood Count 4.9 K/mm3 (4.4-11.0)
[2020-03-13 05:55] LABS: ALB/GLOB Ratio 0.6 RATIO (0.9-2.4); AST(SGOT) 90 U/L (15-37); Alanine Aminotransfer ALT/SGPT 99 U/L (16-61); Albumin, Serum 2.5 g/dL (3.2-5.0); Alkaline Phosphatase 88 U/L (45-117); Anion Gap 6 (5-15); BUN 37 mg/dL (7-18); BUN/Creat Ratio 33.6 RATIO (10-20); Calcium,Total 8.2 mg/dL (8.5-10.1); Chloride 102 mmol/L (98-107); EST Glomerular Filtration Rate 68 mL/min (>60); Est Glom Filt Rate - Afr Amer 82 mL/min (>60); Estimated Creatinine Clearance 53.46 ml/min; Globulin 3.9 g/dL (2.2-4.2); Glucose 185 mg/dL (74-106); Potassium 4.3 mmol/L (3.5-5.1); Protein, Total 6.4 g/dL (6.4-8.2); Sodium Level 136 mmol/L (136-145)
[2020-03-13] MEDS: Insulin Lispro 100 UNIT/ML INSULN.PEN SC ×3 (08:46→16:32)
[2020-03-13] MEDS: Enoxaparin 30 MG/0.3 ML Syringe SC ×2 (08:46→21:32)
[2020-03-13] MEDS: Aspirin E.C. 81 MG Tablet PO (08:47)
[2020-03-13] MEDS: dexAMETHasone 4 MG Tablet 6 MG PO (08:47)
[2020-03-13] MEDS: Furosemide 40 MG/4 ML Vial IV ×2 (08:47→17:45)
[2020-03-13] MEDS: Carvedilol 3.125 MG TABLET PO ×2 (08:47→21:32)
[2020-03-13] MEDS: Levothyroxine 75 MCG Tablet PO (08:47)
[2020-03-13] MEDS: Finasteride 5 MG Tablet PO (08:47)
[2020-03-13] MEDS: Menthol/Lanolin/Calamine/Znox 113 GM Tube 1 APPLIC TOPICAL ×2 (08:48→21:31)
--- NOTE | 2020-03-13 09:00 | NURSING ---
Patient refused breakfast and daughter called upset because patient called and states we had refused to feed him. I explained that a tray was provided in the room with a non select meal after the patient refused to order. The patient then refused to eat anything on the breakfast tray that was left in the room.
[2020-03-13 09:05] LABS: Bedside Glucose 179 mg/dL (70-110)
--- NOTE | 2020-03-13 09:05 | PCM.PN.HOSP ---
Patient Problems: Active and Suspected Problems (Last Reviewed 01/31/20 @ 14:[address] Andres Peres MD) Pneumonia due to COVID-19 virus (Acute) Reason for Visit: Follow-up for COVID-19 pneumonia with acute hypoxic respiratory failure Objective: On 13 to 15 L of oxygen. Afebrile. Patient has dry cough but no chest congestion or chest pressure. Physical exam General: Alert, Oriented x3, Cooperative HEENT: Atraumatic, PERRLA, EOMI, Normocephalic Oral: No Gingival or Mucosal Lesions/ Ulcerations Neck: Supple, No JVD, Negative Carotid Bruits Lungs: Air entry diminished in bilateral lung bases. Bilateral coarse crepitation present. On high flow oxygen Cardiovascular: Regular rate, Regular Rhythm, Normal S1, Normal S2, No murmurs Abdomen: Bowel Sounds Present, Soft, Non Tender, Non-Distended : No renal angle tenderness. No suprapubic tenderness. Extremities: No edema, Capillary Refill Less than 3 Seconds Skin: No rashes, No breakdown Musculoskeletal: No Tenderness to Palpation of Joints or Extremities Neurological: Cranial nerves II-XII grossly intact, Deep Tendon Reflexes 2+/4 and Symmetrical, Neuro grossly intact Psych/Mental Status: Normal Affect, Appropriate. Vitals/I&O's: Vital Signs Temp Pulse Resp BP Pulse Ox 97.7 F L 56 L 18 124/71 H 92 03/13/20 08:42 03/13/20 08:42 03/13/20 08:42 03/13/20 08:42 03/13/20 08:42 Oxygen Flow Rate (L/min) 13 Oxygen Delivery Method Nasal Cannula Weight: 184 lb 9.594 oz Body Mass Index (BMI) 26.4 Finger Stick Blood Glucose 123 Intake and Output for Last 24 Hours 03/11/20 03/12/20 03/13/20 23:59 23:59 23:59 Intake Total 790 / 790 730 / 730 250 / 250 Output Total 1000 / 1175 1825 / 2725 1400 / 1400 Balance -210 / -385 -5 / -1994 -1150 / -1150 Microbiology Past 72 Hours 03/09/20 22:55 Urine, Catheterized Urine Culture - Final Mixed Gram Positive Organisms 03/09/20 19:29 Blood Culture (Wb) - Left Hand Blood Culture - Preliminary No growth in 48 hours. 03/09/20 19:19 Blood Culture (Wb) - Anticubital Left Blood Culture - Preliminary No growth in 48 hours. Laboratory Results 03/12/20 09:12: POC Glucose 155 H 03/12/20 12:49: POC Glucose 223 H 03/12/20 16:55: POC Glucose 261 H 03/12/20 22:43: POC Glucose 192 H 03/13/20 05:14: WBC 4.9, RBC 3.40 L, Hgb 9.7 L, Hct 30.7 L, MCV 90.3, MCH 28.5, MCHC 31.6 L, RDW Std Deviation 46.3 H, RDW Coeff of Lamont 13.9, Plt Count 198, MPV 9.6 03/13/20 05:14: Sodium 136, Potassium 4.3, Chloride 102, Carbon Dioxide 28.0, Anion Gap 6, BUN 37 H, Creatinine 1.10, Estim Creat Clear Calc 53.46, Est GFR (MDRD) Af Amer 82, Est GFR (MDRD) Non-Af 68, BUN/Creatinine Ratio 33.6 H, Glucose 185 H, Calcium 8.2 L, Total Bilirubin 0.40, AST 90 H, ALT 99 H, Alkaline Phosphatase 88, Total Protein 6.4, Albumin 2.5 L, Globulin 3.9, Albumin/Globulin Ratio 0.6 L 03/13/20 08:39: POC Glucose 179 H Current Medications Acetaminophen (Acetaminophen 325 Mg Tablet) 650 mg PO Q6H PRN PRN PRN Reason: Pain Score 1-10/Temp > 100.7 F Albuterol Sulfate (Albuterol Ih 8.5 Gm (Proair) Inhaler (200 Puffs)) 2 puff INHALATION Q4H PRN PRN PRN Reason: Shortness of breath, wheezing Last Admin: 03/12/20 06:19 Dose: 2 puff Documented by: Aspirin (Aspirin E.C. 81 Mg Tablet) 81 mg PO DAILY MICHAEL Last Admin: 03/13/20 08:47 Dose: 81 mg Documented by: Atorvastatin Calcium (Atorvastatin Calcium 40 Mg Tablet) 40 mg PO QHS MICHAEL Last Admin: 03/12/20 22:45 Dose: 40 mg Documented by: Calamine/Phenol (Menthol/Lanolin/Calamine/Znox 113 Gm Tube) 1 applic TOPICAL BID MICHAEL; Protocol Last Admin: 03/13/20 08:48 Dose: 1 applicatio Documented by: Carvedilol (Carvedilol 3.125 Mg Tablet) 3.125 mg PO BID [facility] Last Admin: 03/13/20 08:47 Dose: 3.125 mg Documented by: Dexamethasone (Dexamethasone 4 Mg Tablet) 6 mg PO DAILY [facility] Stop: 03/18/20 10:01 Last Admin: 03/13/20 08:47 Dose: 6 mg Documented by: Dextrose (Dextrose 50%-Water 25 Gm/50 Ml Disp.Syrin) 0 gm IV X1 PRN; Protocol PRN Reason: Hypoglycemia Enoxaparin Sodium (Enoxaparin 30 Mg/0.3 Ml Syringe) 30 mg SC BID [facility] Last Admin: 03/13/20 08:46 Dose: 30 mg Documented by: Finasteride (Finasteride 5 Mg Tablet) 5 mg PO DAILY [facility] Last Admin: 03/13/20 08:47 Dose: 5 mg Documented by: Furosemide (Furosemide 40 Mg/4 Ml Vial) 40 mg IV BID@1000,1800 [facility] Last Admin: 03/13/20 08:47 Dose: 40 mg Documented by: Glucagon (Glucagon 1 Mg/Ml Syringe) 1 mg IM .X1 PRN PRN Reason: Hypoglycemia Guaifenesin (Guaifenesin 10 Ml Udc (200mg/10ml)) 10 ml PO Q4H PRN PRN PRN Reason: COUGH Last Admin: 03/10/20 15:54 Dose: 10 ml Documented by: Remdesivir 100 mg/ Sodium (Chloride) 250 mls @ 125 mls/hr IV DAILY@2200 [facility] Stop: 03/13/20 23:59 Last Infusion: 03/13/20 01:10 Dose: Infused Documented by: Sodium Chloride () 250 mls @ 15 mls/hr IV .[id number] PRN PRN Reason: Saline Flush Insulin Glargine (Insulin Glargine 100 Units/Ml Pen) 10 units SC BREAKFAST [facility] Last Admin: 03/13/20 08:46 Dose: 10 u Documented by: Insulin Human Lispro (Insulin Lispro 100 Unit/Ml Insuln.Pen) 0 unit SC TIDAC [facility]; Protocol Last Admin: 03/13/20 08:46 Dose: 1 u Documented by: Levothyroxine Sodium (Levothyroxine 75 Mcg Tablet) 75 mcg PO DAILY MICHAEL Last Admin: 03/13/20 08:47 Dose: 75 mcg Documented by: Ondansetron HCl (Ondansetron 4 Mg/2 Ml Vial) 4 mg IV Q8H PRN PRN PRN Reason: NAUSEA/VOMITING Senna/Docusate Sodium (Senna/Docusate Sodium 1 Tablet) 2 tablet PO BID PRN PRN PRN Reason: Constipation Sodium Chloride (0.9% Saline Lock 10 Ml Syringe) 10 - 40 ml IV UD PRN PRN Reason: SALINE FLUSH Zolpidem Tartrate (Zolpidem Tartrate 5 Mg Tablet) 5 mg PO QHS PRN PRN PRN Reason: INSOMNIA STROKE Vital Signs/Narrative: Vital Signs Temp Pulse Resp BP Pulse Ox 03/13/20 08:42 97.7 F L 56 L 18 124/71 H 92 03/13/20 06:37 92 03/13/20 06:27 52 L 03/13/20 05:21 96.8 F L 52 L 20 H 144/84 H 95 Medical Necessity - Tobacco Use Smoking Status: Former smoker Assessment/Plan All Active Problems (Last Reviewed 01/31/20 @ 14:[address] Andres Peres MD) Pneumonia due to COVID-19 virus (Acute) This is an 84 years old male patient came to ED for fever as well as mild chronic cough and he tested positive for COVID-19 antigen, found to have bilateral infiltrates on chest x-ray and he is being admitted for acute COVID-19 pneumonia and hypoxia. 1. Acute COVID 19 pneumonia On Decadron and remdesivir. 2. Acute hypoxic respiratory failure secondary to COVID-19 pneumonia: On high flow oxygen. Patient had Lasix 1 dose yesterday. BNP ordered. 3. RACHEL resolved 4. DM type II: Glucose is between 140-190, fairly controlled. On insulin glargine and sliding scale insulin. 5. VTE prophylaxis: LMWH, enoxaparin. Advanced care planning:. Patient does not have living status. My colleague discussed with the advanced care and CODE STATUS with patient. Currently full code. Inpatient E&M: 46688 Subs Hosp L2
[2020-03-13 13:05] LABS: Bedside Glucose 154 mg/dL (70-110)
[2020-03-13 16:41] LABS: Bedside Glucose 242 mg/dL (70-110)
--- NOTE | 2020-03-13 17:18 | NURSING ---
Spoke to daughter, Jossie Ness. Informed her that patient had refused supper tray. Asked if family was bringing in food for patient and she said no. She requested we order a non select meal if the patient continued to refuse to order. Daughter states she will call patient and encourage oral nutrition. Patient had previously refused breakfast this AM and ate a minimal lunch, however the family brought him a cheeseburger around 1pm that the patient ate half of. Will monitor.
[2020-03-13] MEDS: Atorvastatin Calcium 40 MG Tablet PO (21:32)
[2020-03-14] VITALS (16 sets, daily range): BP systolic 110–156; BP diastolic 64–83; PULSE 50–70; RESP 18–24; TEMP 36.1–37; O2SAT 88–99
[2020-03-14] MEDS: Insulin Lispro 100 UNIT/ML INSULN.PEN SC ×3 (06:47→16:55)
[2020-03-14 06:55] LABS: Bedside Glucose 159 mg/dL (70-110)
[2020-03-14 08:12] LABS: ALB/GLOB Ratio 0.6 RATIO (0.9-2.4); AST(SGOT) 57 U/L (15-37); Alanine Aminotransfer ALT/SGPT 88 U/L (16-61); Albumin, Serum 2.4 g/dL (3.2-5.0); Alkaline Phosphatase 86 U/L (45-117); Anion Gap 7 (5-15); BUN 48 mg/dL (7-18); Calcium,Total 8.4 mg/dL (8.5-10.1); Chloride 100 mmol/L (98-107); Creatinine, Serum 1.23 mg/dL (0.70-1.30); EST Glomerular Filtration Rate 60 mL/min (>60); Est Glom Filt Rate - Afr Amer 72 mL/min (>60); Estimated Creatinine Clearance 47.81 ml/min; Glucose 157 mg/dL (74-106); Potassium 4.2 mmol/L (3.5-5.1); Protein, Total 6.4 g/dL (6.4-8.2); Sodium Level 136 mmol/L (136-145)
--- NOTE | 2020-03-14 08:47 | RAD_ITS ---
STUDY: X-RAY CHEST REASON FOR EXAM: Male, 84 years old. sob TECHNIQUE: Single AP portable view of the chest. COMPARISON: 03/09/2021 FINDINGS: Interstitial prominence within the bilateral lung similar to previous with areas of airspace disease overlying the left lower lobe similar to prior. There is no demonstrated pleural abnormality. Normal size heart. Normal mediastinum and shreya. Normal visualized pulmonary arteries. Normal visualized aortic arch and descending thoracic aorta. Normal visualized thoracic spine. Normal visualized ribs, clavicles, and shoulders. There is no demonstrated abnormality of the visualized soft tissue structures of the upper abdomen. RAD/Chest 1 View (Portable) IMPRESSION: Similar bilateral prominent interstitial markings with left lower lobe airspace disease concerning for acute infiltrate in the appropriate clinical setting. Electronically Signed: Chandan Rush DO at 10:02 EST , Service support ,
[2020-03-14] MEDS: Menthol/Lanolin/Calamine/Znox 113 GM Tube 1 APPLIC TOPICAL ×2 (08:54→20:56)
[2020-03-14] MEDS: Carvedilol 3.125 MG TABLET PO ×2 (08:55→20:55)
[2020-03-14] MEDS: Aspirin E.C. 81 MG Tablet PO (08:55)
[2020-03-14] MEDS: Furosemide 40 MG/4 ML Vial IV ×2 (08:55→16:56)
[2020-03-14] MEDS: dexAMETHasone 4 MG Tablet 6 MG PO (08:55)
[2020-03-14] MEDS: Enoxaparin 30 MG/0.3 ML Syringe SC ×2 (08:56→20:55)
[2020-03-14] MEDS: 0.9% Saline Lock 10 ML Syringe IV ×2 (08:56→16:57)
[2020-03-14] MEDS: Finasteride 5 MG Tablet PO (08:56)
[2020-03-14] MEDS: Levothyroxine 75 MCG Tablet PO (08:56)
--- NOTE | 2020-03-14 08:59 | NURSING ---
This nurse called and Spoke With Abbie ASHLEY, she is aware of Stat order for ABG's.
[2020-03-14 09:11] LABS: Hematocrit 34.3 % (40-54); Hemoglobin 10.9 g/dL (13.0-16.5); Mean Corp Hgb Conc 31.8 g/dL (32-36); Mean Corpuscular Hgb 29.2 pg (27.0-32.0); Mean Platelet Vol. 10.1 fl (6.2-12.0); Platelet Count 254 K/mm3 (150-450); RBC Distribution Width CV 13.7 % (11.6-14.6); RBC Distribution Width SD 46.3 fl (35.1-43.9); Red Blood Count 3.73 M/mm3 (4.6-6.2); White Blood Count 7.6 K/mm3 (4.4-11.0)
[2020-03-14 09:36] LABS: Base Excess 2 mmol/L (-2 to +2); Bicarbonate 26.3 mmol/L (22-26); Blood Gas Specimen Type ART; O2 Delivery Device Cannula; PO2 57 mmHG (75-100); SITE R Radial; SO2 90 % (95-99); Total Carbon Dioxide 28 mmol/L; pCO2 38.4 mmHg (35-45); pH 7.44 (7.35-7.45)
[2020-03-14 12:10] LABS: Bedside Glucose 187 mg/dL (70-110)
--- NOTE | 2020-03-14 12:59 | PN_ITS ---
Patient Problems: Active and Suspected Problems (Last Reviewed 01/31/20 @ 14:[address] Andres Peres MD) Pneumonia due to COVID-19 virus (Acute) Objective: Patient is hypoxic even on 15 L of oxygen. Was put on high flow oxygen. ABG and BiPAP ordered. Afebrile. Patient has mild short of breath. No significant cough. Respiratory rate 18 to 24/min Physical exam General: Alert, Oriented x3, Cooperative HEENT: Atraumatic, PERRLA, EOMI, Normocephalic Oral: No Gingival or Mucosal Lesions/ Ulcerations Neck: Supple, No JVD, Negative Carotid Bruits Lungs: Air entry diminished in bilateral lung bases. Bilateral coarse crepitation present. On high flow oxygen, AIRVO Cardiovascular: Regular rate, Regular Rhythm, Normal S1, Normal S2, No murmurs Abdomen: Bowel Sounds Present, Soft, Non Tender, Non-Distended : No renal angle tenderness. No suprapubic tenderness. Extremities: No edema, Capillary Refill Less than 3 Seconds Skin: No rashes, No breakdown Musculoskeletal: No Tenderness to Palpation of Joints or Extremities Neurological: Cranial nerves II-XII grossly intact, Deep Tendon Reflexes 2+/4 and Symmetrical, Neuro grossly intact Psych/Mental Status: Normal Affect, Appropriate. Vitals/I&O's: Vital Signs Temp Pulse Resp BP Pulse Ox 97.9 F 66 20 H 124/70 H 98 03/14/20 12:02 03/14/20 12:02 03/14/20 12:02 03/14/20 12:02 03/14/20 12:02 Oxygen Flow Rate (L/min) 15 Oxygen Delivery Method Airvo Weight: 184 lb 9.594 oz Body Mass Index (BMI) 26.4 Finger Stick Blood Glucose 123 Intake and Output for Last 24 Hours 03/12/20 03/13/20 03/14/20 23:59 23:59 23:59 Intake Total 730 / 730 1500 / 1500 650 / 650 Output Total 1825 / 2725 4100 / 4700 1999 / 1999 Balance -1095 / -1995 -2600 / -3200 -1350 / -1350 Microbiology Past 72 Hours 03/09/20 22:55 Urine, Catheterized Urine Culture - Final Mixed Gram Positive Organisms 03/09/20 19:29 Blood Culture (Wb) - Left Hand Blood Culture - Preliminary No growth in 48 hours. 03/09/20 19:19 Blood Culture (Wb) - Anticubital Left Blood Culture - Preliminary No growth in 48 hours. Laboratory Results 03/13/20 11:43: POC Glucose 154 H 03/13/20 16:30: POC Glucose 242 H 03/14/20 06:45: POC Glucose 159 H 03/14/20 07:30: WBC 7.6, RBC 3.73 L, Hgb 10.9 L, Hct 34.3 L, MCV 92.0, MCH 29.2, MCHC 31.8 L, RDW Std Deviation 46.3 H, RDW Coeff of Lamont 13.7, Plt Count 254, MPV 10.1 03/14/20 07:30: Sodium 136, Potassium 4.2, Chloride 100, Carbon Dioxide 29.0, Anion Gap 7, BUN 48 H, Creatinine 1.23, Estim Creat Clear Calc 47.81, Est GFR (M DRD) Af Amer 72, Est GFR (MDRD) Non-Af 60, BUN/Creatinine Ratio 39.0 H, Glucose 157 H, Calcium 8.4 L, Total Bilirubin 0.40, AST 57 H, ALT 88 H, Alkaline Phosphatase 86, Total Protein 6.4, Albumin 2.4 L, Globulin 4.0, Albumin/Globulin Ratio 0.6 L 03/14/20 09:31: Specimen Type ART, Sample Site R Radial, pH 7.44, Bicarbonate Actual 26.3 H, Total CO2 28, Base Excess 2, O2 Saturation 90 L, ABG pCO2 38.4, ABG pO2 57 L, O2 Delivery Device Cannula, Liter Flow 15.0 03/14/20 11:58: POC Glucose 187 H Current Medications Acetaminophen (Acetaminophen 325 Mg Tablet) 650 mg PO Q6H PRN PRN PRN Reason: Pain Score 1-10/Temp > 100.7 F Albuterol Sulfate (Albuterol Ih 8.5 Gm (Proair) Inhaler (200 Puffs)) 2 puff INHALATION Q4H PRN PRN PRN Reason: Shortness of breath, wheezing Last Admin: 03/12/20 06:19 Dose: 2 puff Documented by: Aspirin (Aspirin E.C. 81 Mg Tablet) 81 mg PO DAILY MICHAEL Last Admin: 03/14/20 08:55 Dose: 81 mg Documented by: Atorvastatin Calcium (Atorvastatin Calcium 40 Mg Tablet) 40 mg PO QHS [facility] [place] Last Admin: 03/13/20 21:32 Dose: 40 mg Documented by: Calamine/Phenol (Menthol/Lanolin/Calamine/Znox 113 Gm Tube) 1 applic TOPICAL BID [facility] [place]; Protocol Last Admin: 03/14/20 08:54 Dose: 1 applicatio Documented by: Carvedilol (Carvedilol 3.125 Mg Tablet) 3.125 mg PO BID [facility] [place] Last Admin: 03/14/20 08:55 Dose: 3.125 mg Documented by: Dexamethasone (Dexamethasone 4 Mg Tablet) 6 mg PO DAILY [facility] [place] Stop: 03/18/20 10:01 Last Admin: 03/14/20 08:55 Dose: 6 mg Documented by: Dextrose (Dextrose 50%-Water 25 Gm/50 Ml Disp.Syrin) 0 gm IV X1 PRN; Protocol PRN Reason: Hypoglycemia Enoxaparin Sodium (Enoxaparin 30 Mg/0.3 Ml Syringe) 30 mg SC BID [facility] [place] Last Admin: 03/14/20 08:56 Dose: 30 mg Documented by: Finasteride (Finasteride 5 Mg Tablet) 5 mg PO DAILY [facility] [place] Last Admin: 03/14/20 08:56 Dose: 5 mg Documented by: Furosemide (Furosemide 40 Mg/4 Ml Vial) 40 mg IV BID@1000,1800 [facility] [place] Last Admin: 03/14/20 08:55 Dose: 40 mg Documented by: Glucagon (Glucagon 1 Mg/Ml Syringe) 1 mg IM .X1 PRN PRN Reason: Hypoglycemia Guaifenesin (Guaifenesin 10 Ml Udc (200mg/10ml)) 10 ml PO Q4H PRN PRN PRN Reason: COUGH Last Admin: 03/10/20 15:54 Dose: 10 ml Documented by: Sodium Chloride () 250 mls @ 15 mls/hr IV .[id number] PRN PRN Reason: Saline Flush Insulin Glargine (Insulin Glargine 100 Units/Ml Pen) 10 units SC BREAKFAST [facility] [place] Last Admin: 03/14/20 08:54 Dose: 10 u Documented by: Insulin Human Lispro (Insulin Lispro 100 Unit/Ml Insuln.Pen) 0 unit SC TIDAC [facility]; Protocol Last Admin: 03/14/20 11:59 Dose: 1 u Documented by: Levothyroxine Sodium (Levothyroxine 75 Mcg Tablet) 75 mcg PO DAILY MICHAEL Last Admin: 03/14/20 08:56 Dose: 75 mcg Documented by: Ondansetron HCl (Ondansetron 4 Mg/2 Ml Vial) 4 mg IV Q8H PRN PRN PRN Reason: NAUSEA/VOMITING Senna/Docusate Sodium (Senna/Docusate Sodium 1 Tablet) 2 tablet PO BID PRN PRN PRN Reason: Constipation Sodium Chloride (0.9% Saline Lock 10 Ml Syringe) 10 - 40 ml IV UD PRN PRN Reason: SALINE FLUSH Last Admin: 03/14/20 08:56 Dose: 10 ml Documented by: Zolpidem Tartrate (Zolpidem Tartrate 5 Mg Tablet) 5 mg PO QHS PRN PRN PRN Reason: INSOMNIA STROKE Vital Signs/Narrative: Vital Signs Temp Pulse Resp BP Pulse Ox 03/14/20 12:02 97.9 F 66 20 H 124/70 H 98 03/14/20 09:52 70 97 03/14/20 09:48 65 18 93 Medical Necessity - Tobacco Use Smoking Status: Former smoker Assessment/Plan All Active Problems (Last Reviewed 01/31/20 @ 14:[address] Andres Peres MD) Pneumonia due to COVID-19 virus (Acute) This is an 84 years old male patient came to ED for fever as well as mild chronic cough and he tested positive for COVID-19 antigen, found to have bilateral infiltrates on chest x-ray and he is being admitted for acute COVID-19 pneumonia and hypoxia. 1. Acute COVID 19 pneumonia Patient completed remdesivir on 03/13. Continue Decadron. 2. Acute hypoxic respiratory failure secondary to COVID-19 pneumonia: On high flow oxygen. ABG showed 7.44/28/38/57 on 15 L of oxygen suggestive of severe hypoxia with mild metabolic alkalosis. BNP 515. Chest x-ray individually reviewed and shows mild obliteration of left CP angle small bilateral prominent interstitial marking of left lower lobe. On high flow oxygen. Patient on furosemide 40 mg IV twice daily 3. RACHEL * resolved 4. DM type II: Glucose is between 140-190, fairly controlled. 03/14: Glucose fluctuate between 160 to 240 mg/dL. Insulin glargine dose increased to 10 units subcutaneous at breakfast and at night. On sliding scale insulin. 5. VTE prophylaxis: LMWH, enoxaparin. Advanced care planning:. Patient does not have living status. 03/14: Patient treated that he wants intubation and CPR if needed. Microbiology Past 72 Hours 03/09/20 22:55 Urine, Catheterized Urine Culture - Final Mixed Gram Positive Organisms 03/09/20 19:29 Blood Culture (Wb) - Left Hand Blood Culture - Preliminary No growth in 48 hours. 03/09/20 19:19 Blood Culture (Wb) - Anticubital Left Blood Culture - Preliminary No growth in 48 hours. Laboratory Results 03/13/20 11:43: POC Glucose 154 H 03/13/20 16:30: POC Glucose 242 H 03/14/20 06:45: POC Glucose 159 H 03/14/20 07:30: WBC 7.6, RBC 3.73 L, Hgb 10.9 L, Hct 34.3 L, MCV 92.0, MCH 29.2, MCHC 31.8 L, RDW Std Deviation 46.3 H, RDW Coeff of Lamont 13.7, Plt Count 254, MPV 10.1 03/14/20 07:30: Sodium 136, Potassium 4.2, Chloride 100, Carbon Dioxide 29.0, Anion Gap 7, BUN 48 H, Creatinine 1.23, Estim Creat Clear Calc 47.81, Est GFR (MDRD) Af Amer 72, Est GFR (MDRD) Non-Af 60, BUN/Creatinine Ratio 39.0 H, Glucose 157 H, Calcium 8.4 L, Total Bilirubin 0.40, AST 57 H, ALT 88 H, Alkaline Phosphatase 86, Total Protein 6.4, Albumin 2.4 L, Globulin 4.0, Albumin/Globulin Ratio 0.6 L 03/14/20 09:31: Specimen Type ART, Sample Site R Radial, pH 7.44, Bicarbonate Actual 26.3 H, Total CO2 28, Base Excess 2, O2 Saturation 90 L, ABG pCO2 38.4, ABG pO2 57 L, O2 Delivery Device Cannula, Liter Flow 15.0 03/14/20 11:58: POC Glucose 187 H Clinical Impression(s) from Imaging Studies Chest X-Ray 03/09/20 19:35 IMPRESSION: Findings suspicious for evolving inflammatory disease in the lower lobes greater on the left Chest X-Ray 03/14/20 08:47 IMPRESSION: Similar bilateral prominent interstitial markings with left lower lobe airspace disease concerning for acute infiltrate in the appropriate clinical setting. Electronically Signed: Chandan Rush DO at 10:02 EST , Service support , Inpatient E&M: 00091 Subs Hosp L2
[2020-03-14 19:46] LABS: Bedside Glucose 210 mg/dL (70-110)
[2020-03-14] MEDS: Atorvastatin Calcium 40 MG Tablet PO (20:55)
[2020-03-15] VITALS (16 sets, daily range): BP systolic 85–139; BP diastolic 57–84; PULSE 51–71; RESP 18–24; TEMP 36.4–36.6; O2SAT 92–99
--- NOTE | 2020-03-15 07:26 | PN_ITS ---
Patient Problems: Active and Suspected Problems (Last Reviewed 01/31/20 @ 14:[address] Andres Peres MD) Pneumonia due to COVID-19 virus (Acute) Reason for Visit: Follow-up for acute hypoxic respiratory failure secondary to COVID-19 pneumonia Objective: Afebrile. On 50% FiO2, AIR VO. Blood pressure in normal range. Patient overall is feeling better. Denies cough or sputum production. Physical exam General: Alert, Oriented x3, Cooperative HEENT: Atraumatic, PERRLA, EOMI, Normocephalic Oral: No Gingival or Mucosal Lesions/ Ulcerations Neck: Supple, No JVD, Negative Carotid Bruits Lungs: Air entry diminished in bilateral lung bases. Right basilar fine crackles present. Cardiovascular: Regular rate, Regular Rhythm, Normal S1, Normal S2, No murmurs Abdomen: Bowel Sounds Present, Soft, Non Tender, Non-Distended : No renal angle tenderness. No suprapubic tenderness. Extremities: No ankle edema, Capillary Refill Less than 3 Seconds Skin: No rashes, No breakdown Musculoskeletal: No Tenderness to Palpation of Joints or Extremities Neurological: Cranial nerves II-XII grossly intact, Deep Tendon Reflexes 2+/4 and Symmetrical, Neuro grossly intact Psych/Mental Status: Normal Affect, Appropriate. Vitals/I&O's: Vital Signs Temp Pulse Resp BP Pulse Ox 97.6 F L 51 L 18 139/84 H 96 03/15/20 02:55 03/15/20 05:07 03/15/20 05:07 03/15/20 02:55 03/15/20 05:07 Oxygen Flow Rate (L/min) 50 Oxygen Delivery Method Airvo Weight: 184 lb 9.594 oz Body Mass Index (BMI) 26.4 Finger Stick Blood Glucose 123 Intake and Output for Last 24 Hours 03/13/20 03/14/20 03/15/20 23:59 23:59 23:59 Intake Total 1500 / 1500 770 / 770 120 / 120 Output Total 4100 / 4700 2500 / 2750 875 / 875 Balance -2600 / -3200 -1730 / -1980 -755 / -755 Microbiology Past 72 Hours 03/09/20 19:29 Blood Culture (Wb) - Left Hand Blood Culture - Final No growth in 5 days. 03/09/20 19:19 Blood Culture (Wb) - Anticubital Left Blood Culture - Final No growth in 5 days. 03/09/20 22:55 Urine, Catheterized Urine Culture - Final Mixed Gram Positive Organisms Laboratory Results 03/14/20 07:30: WBC 7.6, RBC 3.73 L, Hgb 10.9 L, Hct 34.3 L, MCV 92.0, MCH 29.2, MCHC 31.8 L, RDW Std Deviation 46.3 H, RDW Coeff of Lamont 13.7, Plt Count 254, MPV 10.1 03/14/20 07:30: Sodium 136, Potassium 4.2, Chloride 100, Carbon Dioxide 29.0, Anion Gap 7, BUN 48 H, Creatinine 1.23, Estim Creat Clear Calc 47.81, Est GFR (MDRD) Af Amer 72, Est GFR (MDRD) Non-Af 60, BUN/Creatinine Ratio 39.0 H, Glucose 157 H, Calcium 8.4 L, Total Bilirubin 0.40, AST 57 H, ALT 88 H, Alkaline Phosphatase 86, Total Protein 6.4, Albumin 2.4 L, Globulin 4.0, Albumin/Globulin Ratio 0.6 L 03/14/20 09:31: Specimen Type ART, Sample Site R Radial, pH 7.44, Bicarbonate Actual 26.3 H, Total CO2 28, Base Excess 2, O2 Saturation 90 L, ABG pCO2 38.4, ABG pO2 57 L, O2 Delivery Device Cannula, Liter Flow 15.0 03/14/20 11:58: POC Glucose 187 H 03/14/20 16:53: POC Glucose 210 H Current Medications Acetaminophen (Acetaminophen 325 Mg Tablet) 650 mg PO Q6H PRN PRN PRN Reason: Pain Score 1-10/Temp > 100.7 F Albuterol Sulfate (Albuterol Ih 8.5 Gm (Proair) Inhaler (200 Puffs)) 2 puff INHALATION Q4H PRN PRN PRN Reason: Shortness of breath, wheezing Last Admin: 03/12/20 06:19 Dose: 2 puff Documented by: Aspirin (Aspirin E.C. 81 Mg Tablet) 81 mg PO DAILY [facility] Last Admin: 03/14/20 08:55 Dose: 81 mg Documented by: Atorvastatin Calcium (Atorvastatin Calcium 40 Mg Tablet) 40 mg PO QHS [facility] Last Admin: 03/14/20 20:55 Dose: 40 mg Documented by: Calamine/Phenol (Menthol/Lanolin/Calamine/Znox 113 Gm Tube) 1 applic TOPICAL BID [facility]; Protocol Last Admin: 03/14/20 20:56 Dose: 1 applicatio Documented by: Carvedilol (Carvedilol 3.125 Mg Tablet) 3.125 mg PO BID [facility] Last Admin: 03/14/20 20:55 Dose: 3.125 mg Documented by: Dexamethasone (Dexamethasone 4 Mg Tablet) 6 mg PO DAILY [facility] Stop: 03/18/20 10:01 Last Admin: 03/14/20 08:55 Dose: 6 mg Documented by: Dextrose (Dextrose 50%-Water 25 Gm/50 Ml Disp.Syrin) 0 gm IV X1 PRN; Protocol PRN Reason: Hypoglycemia Enoxaparin Sodium (Enoxaparin 30 Mg/0.3 Ml Syringe) 30 mg SC BID [facility] Last Admin: 03/14/20 20:55 Dose: 30 mg Documented by: Finasteride (Finasteride 5 Mg Tablet) 5 mg PO DAILY [facility] Last Admin: 03/14/20 08:56 Dose: 5 mg Documented by: Furosemide (Furosemide 40 Mg/4 Ml Vial) 40 mg IV BID@1000,1800 [facility] Last Admin: 03/14/20 16:56 Dose: 40 mg Documented by: Glucagon (Glucagon 1 Mg/Ml Syringe) 1 mg IM .X1 PRN PRN Reason: Hypoglycemia Guaifenesin (Guaifenesin 10 Ml Udc (200mg/10ml)) 10 ml PO Q4H PRN PRN PRN Reason: COUGH Last Admin: 03/10/20 15:54 Dose: 10 ml Documented by: Sodium Chloride () 250 mls @ 15 mls/hr IV .[id number] PRN PRN Reason: Saline Flush Insulin Glargine (Insulin Glargine 100 Units/Ml Pen) 10 units SC BREAKFAST [facility] Last Admin: 03/14/20 08:54 Dose: 10 u Documented by: Insulin Glargine (Insulin Glargine 100 Units/Ml Pen) 10 units SC DINNER [facility] Last Admin: 03/14/20 16:56 Dose: 10 u Documented by: Insulin Human Lispro (Insulin Lispro 100 Unit/Ml Insuln.Pen) 0 unit SC TIDAC [facility]; Protocol Last Admin: 03/14/20 16:55 Dose: 2 u Documented by: Levothyroxine Sodium (Levothyroxine 75 Mcg Tablet) 75 mcg PO DAILY [facility] Last Admin: 03/14/20 08:56 Dose: 75 mcg Documented by: Ondansetron HCl (Ondansetron 4 Mg/2 Ml Vial) 4 mg IV Q8H PRN PRN PRN Reason: NAUSEA/VOMITING Senna/Docusate Sodium (Senna/Docusate Sodium 1 Tablet) 2 tablet PO BID PRN PRN PRN Reason: Constipation Sodium Chloride (0.9% Saline Lock 10 Ml Syringe) 10 - 40 ml IV UD PRN PRN Reason: SALINE FLUSH Last Admin: 03/14/20 16:57 Dose: 10 ml Documented by: Zolpidem Tartrate (Zolpidem Tartrate 5 Mg Tablet) 5 mg PO QHS PRN PRN PRN Reason: INSOMNIA STROKE Vital Signs/Narrative: Vital Signs Pulse Resp Pulse Ox 03/15/20 05:07 51 L 18 96 Medical Necessity - Tobacco Use Smoking Status: Former smoker Assessment/Plan All Active Problems (Last Reviewed 01/31/20 @ 14:[address] Andres Peres MD) Pneumonia due to COVID-19 virus (Acute) This is an 84 years old male patient came to ED for fever as well as mild chronic cough and he tested positive for COVID-19 antigen, found to have bilateral infiltrates on chest x-ray and he is being admitted for acute COVID-19 pneumonia and hypoxia. 1. Acute COVID 19 pneumonia Patient completed remdesivir on 03/13. Continue Decadron. 2. Acute hypoxic respiratory failure secondary to COVID-19 pneumonia and acute on chronic diastolic heart failure, present on admission: On high flow oxygen. ABG showed 7.44/28/38/57 on 15 L of oxygen suggestive of severe hypoxia with mild metabolic alkalosis. BNP 515. Chest x-ray individually reviewed and shows mild obliteration of left CP angle small bilateral prominent interstitial marking of left lower lobe. On high flow oxygen. Patient on furosemide 40 mg IV twice daily 03/15: Patient on high flow oxygen. Last echo from May 16, 2018 reported as EF 75% with mild concentric LVH. Stage I diastolic dysfunction and EF improved from 50% to 75%. Continue Lasix. Monitor electrolytes, kidney function, adequate intake and output and titrate the dose of Lasix accordingly. 3. RACHEL * resolved 4. DM type II: Glucose is between 140-190, fairly controlled. 03/14: Glucose fluctuate between 160 to 240 mg/dL. Insulin glargine dose increased to 10 units subcutaneous at breakfast and at night. On sliding scale insulin. 03/15: Glucose is fairly controlled. 5. VTE prophylaxis: LMWH, enoxaparin. Advanced care planning:. Patient does not have living status. 03/14: Patient treated that he wants intubation and CPR if needed. Microbiology Past 72 Hours 03/09/20 22:55 Urine, Catheterized Urine Culture - Final Mixed Gram Positive Organisms 03/09/20 19:29 Blood Culture (Wb) - Left Hand Blood Culture - Preliminary No growth in 48 hours. 03/09/20 19:19 Blood Culture (Wb) - Anticubital Left Blood Culture - Preliminary No growth in 48 hours. Laboratory Results 03/14/20 07:30: WBC 7.6, RBC 3.73 L, Hgb 10.9 L, Hct 34.3 L, MCV 92.0, MCH 29.2, MCHC 31.8 L, RDW Std Deviation 46.3 H, RDW Coeff of Lamont 13.7, Plt Count 254, MPV 10.1 03/14/20 07:30: Sodium 136, Potassium 4.2, Chloride 100, Carbon Dioxide 29.0, Anion Gap 7, BUN 48 H, Creatinine 1.23, Estim Creat Clear Calc 47.81, Est GFR (MDRD) Af Amer 72, Est GFR (MDRD) Non-Af 60, BUN/Creatinine Ratio 39.0 H, Glucose 157 H, Calcium 8.4 L, Total Bilirubin 0.40, AST 57 H, ALT 88 H, Alkaline Phosphatase 86, Total Protein 6.4, Albumin 2.4 L, Globulin 4.0, Albumin/Globulin Ratio 0.6 L 03/14/20 09:31: Specimen Type ART, Sample Site R Radial, pH 7.44, Bicarbonate Actual 26.3 H, Total CO2 28, Base Excess 2, O2 Saturation 90 L, ABG pCO2 38.4, ABG pO2 57 L, O2 Delivery Device Cannula, Liter Flow 15.0 03/14/20 11:58: POC Glucose 187 H Clinical Impression(s) from Imaging Studies Chest X-Ray 12/21/20 19:35 IMPRESSION: Findings suspicious for evolving inflammatory disease in the lower lobes greater on the left Chest X-Ray 03/14/20 08:47 IMPRESSION: Similar bilateral prominent interstitial markings with left lower lobe airspace disease concerning for acute infiltrate in the appropriate clinical setting. Electronically Signed: Chandan Rush DO at 10:02 EST , Service support , Inpatient E&M: [id number] Subs Hosp L2
[2020-03-15] MEDS: Insulin Lispro 100 UNIT/ML INSULN.PEN SC ×3 (08:35→18:24)
[2020-03-15] MEDS: Menthol/Lanolin/Calamine/Znox 113 GM Tube 1 APPLIC TOPICAL ×2 (08:38→20:53)
[2020-03-15] MEDS: Aspirin E.C. 81 MG Tablet PO (08:39)
[2020-03-15] MEDS: Carvedilol 3.125 MG TABLET PO ×2 (08:39→20:54)
[2020-03-15] MEDS: dexAMETHasone 4 MG Tablet 6 MG PO (08:39)
[2020-03-15] MEDS: Furosemide 40 MG/4 ML Vial IV (08:40)
[2020-03-15] MEDS: Levothyroxine 75 MCG Tablet PO (08:40)
[2020-03-15] MEDS: 0.9% Saline Lock 10 ML Syringe IV (08:41)
[2020-03-15] MEDS: Finasteride 5 MG Tablet PO (08:41)
[2020-03-15] MEDS: Enoxaparin 30 MG/0.3 ML Syringe SC ×2 (08:41→20:53)
--- NOTE | 2020-03-15 10:38 | NURSING ---
Addendum entered by Nano Golden 03/15/20 10:56: This nurse explained that if spo2 is not in the range of 90 or above on Ra then we put on NC and if on NC and spo2 not within the normal range then we put on AirVo, and explained what that was. Daughter got upset that no one from the hospital was given permission to put him on this. Daughter barely let this nurse talk. I know [facility] reputation, I know what it's like there, I will pull him outta there and move him somewhere else. This nurse offered to ask her father if it was okay to ask patient, John Contreras for permission to give information to this daughter. Pt refused. No you will call [facility] and talk with her in the next 10 minutes. Pt repeated several times. This nurse gave phone number to Nella RAI and updated her on the pphone call from this daughter. Dr. Gilbert also aware and was told that he would call as well. Jennie Moseley RN did update pt's daughter Oral yesterday 03/14/20 according to documentation. Original Note: Got a call from one of Mr. Contreras's daughters that was not on his contact list. Daughter very agitated and verbally abusive to this nurse over the phone. Pt is upset that there have been no phone calls regarding Fathers condition and that the doctor has not called and she is also upset as to why no one has asked permission to put him on a different apartus
[2020-03-15 11:46] LABS: Bedside Glucose 151 mg/dL (70-110)
[2020-03-15 12:09] LABS: Anion Gap 6 (5-15); BUN 53 mg/dL (7-18); BUN/Creat Ratio 37.6 RATIO (10-20); Calcium,Total 8.5 mg/dL (8.5-10.1); Chloride 99 mmol/L (98-107); Creatinine, Serum 1.41 mg/dL (0.70-1.30); EST Glomerular Filtration Rate 51 mL/min (>60); Est Glom Filt Rate - Afr Amer 62 mL/min (>60); Estimated Creatinine Clearance 41.71 ml/min; Glucose 203 mg/dL (74-106); Magnesium 2.1 mg/dL (1.6-2.6); Phosphorus 3.9 mg/dL (2.5-4.9); Potassium 4.4 mmol/L (3.5-5.1); Sodium Level 136 mmol/L (136-145)
[2020-03-15 12:51] LABS: Bedside Glucose 185 mg/dL (70-110)
[2020-03-15 17:21] LABS: Bedside Glucose 191 mg/dL (70-110)
[2020-03-15 20:55] LABS: Bedside Glucose 304 mg/dL (70-110)
[2020-03-15] MEDS: Atorvastatin Calcium 40 MG Tablet PO (20:55)
[2020-03-16] VITALS (17 sets, daily range): BP systolic 101–138; BP diastolic 64–75; PULSE 50–71; RESP 16–20; TEMP 36.4–36.7; O2SAT 85–100
[2020-03-16 05:59] LABS: Absolute Lymphocyte Count 4.27 X10^3/uL (0.83-4.51); Basophil# 0.02 X10^3/uL; Basophil% 0.3 % (0-1); Eosinophil# 0.01 X10^3/uL; Eosinophils% 0.1 % (0-5); Hematocrit 31.4 % (40-54); Hemoglobin 10.3 g/dL (13.0-16.5); Lymphocyte # 4.27 X10^3/ul (4.0); Lymphocyte % 56.8 % (19-41); Mean Corp Hgb Conc 32.8 g/dL (32-36); Mean Corpuscular Volume 91.5 fL (80-94); Mean Platelet Vol. 9.9 fl (6.2-12.0); Monocyte# 0.16 X10^3/uL; Monocyte% 2.1 % (0-10); NRBC Flagged by Analyzer 0 % (0-5); Neutrophil # 3.02 X10^3/uL (2.7-7.7); Neutrophil % 40.2 % (47-70); Platelet Count 251 K/mm3 (150-450); RBC Distribution Width SD 45.9 fl (35.1-43.9); Red Blood Count 3.43 M/mm3 (4.6-6.2); White Blood Count 7.5 K/mm3 (4.4-11.0)
[2020-03-16 06:32] LABS: Anion Gap 5 (5-15); BUN 55 mg/dL (7-18); BUN/Creat Ratio 52.9 RATIO (10-20); Calcium,Total 8.3 mg/dL (8.5-10.1); Chloride 101 mmol/L (98-107); Creatinine, Serum 1.04 mg/dL (0.70-1.30); EST Glomerular Filtration Rate 73 mL/min (>60); Est Glom Filt Rate - Afr Amer 88 mL/min (>60); Estimated Creatinine Clearance 56.54 ml/min; Glucose 141 mg/dL (74-106); Potassium 4.6 mmol/L (3.5-5.1); Sodium Level 137 mmol/L (136-145)
[2020-03-16] MEDS: Menthol/Lanolin/Calamine/Znox 113 GM Tube 1 APPLIC TOPICAL ×2 (08:17→19:48)
[2020-03-16] MEDS: dexAMETHasone 4 MG Tablet 6 MG PO (08:25)
[2020-03-16] MEDS: Carvedilol 3.125 MG TABLET PO ×2 (08:25→19:53)
[2020-03-16] MEDS: Levothyroxine 75 MCG Tablet PO (08:26)
[2020-03-16] MEDS: Furosemide 40 MG Tablet PO (08:26)
[2020-03-16] MEDS: Aspirin E.C. 81 MG Tablet PO (08:26)
[2020-03-16] MEDS: Finasteride 5 MG Tablet PO (08:26)
[2020-03-16] MEDS: Enoxaparin 30 MG/0.3 ML Syringe SC ×2 (08:28→20:01)
[2020-03-16 08:35] LABS: Bedside Glucose 123 mg/dL (70-110)
[2020-03-16] MEDS: Insulin Lispro 100 UNIT/ML INSULN.PEN SC ×3 (11:19→19:53)
--- NOTE | 2020-03-16 11:44 | PCM.PN.HOSP ---
Patient Problems: Active and Suspected Problems (Last Reviewed 01/31/20 @ 14:[address] Andres Peres MD) Pneumonia due to COVID-19 virus (Acute) Reason for Visit: Follow-up for acute hypoxic respiratory failure secondary to COVID-19 pneumonia. Objective: Patient states his shortness of breath is better. Still on high flow oxygen. Patient shortness of breath. No fever since 03/09. On 50 to 60% FiO2. Mild dry cough Physical exam General: Alert, Oriented x3, Cooperative HEENT: Atraumatic, PERRLA, EOMI, Normocephalic Oral: No Gingival or Mucosal Lesions/ Ulcerations Neck: Supple, No JVD, Negative Carotid Bruits Lungs: Air entry diminished in bilateral lung bases. No crepitation or rhonchi. Cardiovascular: Regular rate, Regular Rhythm, Normal S1, Normal S2, No murmurs Abdomen: Bowel Sounds Present, Soft, Non Tender, Non-Distended : No renal angle tenderness. No suprapubic tenderness. Extremities: No ankle edema, Capillary Refill Less than 3 Seconds Skin: No rashes, No breakdown Musculoskeletal: No Tenderness to Palpation of Joints or Extremities Neurological: Cranial nerves II-XII grossly intact, Deep Tendon Reflexes 2+/4 and Symmetrical, Neuro grossly intact Psych/Mental Status: Normal Affect, Appropriate. Vitals/I&O's: Vital Signs Temp Pulse Resp BP Pulse Ox 97.5 F L 64 18 107/64 94 03/16/20 08:25 03/16/20 11:00 03/16/20 08:25 03/16/20 08:25 03/16/20 08:25 Oxygen Flow Rate (L/min) 45 Oxygen Delivery Method Airvo Weight: 184 lb 9.594 oz Body Mass Index (BMI) 26.4 Finger Stick Blood Glucose 123 Intake and Output for Last 24 Hours 03/14/20 03/15/20 03/16/20 23:59 23:59 23:59 Intake Total 770 / 770 1300 / 1300 360 / 360 Output Total 2500 / 2750 3125 / 3125 900 / 900 Balance -1730 / -1980 -1825 / -1825 -540 / -540 Microbiology Past 72 Hours 03/09/20 19:29 Blood Culture (Wb) - Left Hand Blood Culture - Final No growth in 5 days. 12/21/20 19:19 Blood Culture (Wb) - Anticubital Left Blood Culture - Final No growth in 5 days. 03/09/20 22:55 Urine, Catheterized Urine Culture - Final Mixed Gram Positive Organisms Laboratory Results 03/15/20 07:54: POC Glucose 151 H 03/15/20 11:35: Sodium 136, Potassium 4.4, Chloride 99, Carbon Dioxide 31.0, Anion Gap 6, BUN 53 H, Creatinine 1.41 H, Estim Creat Clear Calc 41.71, Est GFR (MDRD) Af Amer 62, Est GFR (MDRD) Non-Af 51 L, BUN/Creatinine Ratio 37.6 H, Glucose 203 H, Calcium 8.5, Magnesium 2.1 03/15/20 11:35: Phosphorus 3.9 03/15/20 12:19: POC Glucose 185 H 03/15/20 17:09: POC Glucose 191 H 03/15/20 20:43: POC Glucose 304 H 03/16/20 05:28: Sodium 137, Potassium 4.6, Chloride 101, Carbon Dioxide 31.0, Anion Gap 5, BUN 55 H, Creatinine 1.04, Estim Creat Clear Calc 56.54, Est GFR (MDRD) Af Amer 88, Est GFR (MDRD) Non-Af 73, BUN/Creatinine Ratio 52.9 H, Glucose 141 H, Calcium 8.3 L 03/16/20 05:28: WBC 7.5, RBC 3.43 L, Hgb 10.3 L, Hct 31.4 L, MCV 91.5, MCH 30.0, MCHC 32.8, RDW Std Deviation 45.9 H, RDW Coeff of Lamont 14.0, Plt Count 251, MPV 9.9, Immature Gran % (Auto) 0.500, Neut % (Auto) 40.2 L, Lymph % (Auto) 56.8 H, [place] % (Auto) 2.1, Eos % (Auto) 0.1, Baso % (Auto) 0.3, Absolute Neuts (auto) 3.0, Absolute Lymphs (auto) 4.27, Nucleated RBC % 0 03/16/20 08:10: POC Glucose 123 H Current Medications Acetaminophen (Acetaminophen 325 Mg Tablet) 650 mg PO Q6H PRN PRN PRN Reason: Pain Score 1-10/Temp > 100.7 F Albuterol Sulfate (Albuterol Ih 8.5 Gm (Proair) Inhaler (200 Puffs)) 2 puff INHALATION Q4H PRN PRN PRN Reason: Shortness of breath, wheezing Last Admin: 03/12/20 06:19 Dose: 2 puff Documented by: Aspirin (Aspirin E.C. 81 Mg Tablet) 81 mg PO DAILY [facility] Last Admin: 03/16/20 08:26 Dose: 81 mg Documented by: Atorvastatin Calcium (Atorvastatin Calcium 40 Mg Tablet) 40 mg PO QHS [facility] Last Admin: 03/15/20 20:55 Dose: 40 mg Documented by: Calamine/Phenol (Menthol/Lanolin/Calamine/Znox 113 Gm Tube) 1 applic TOPICAL BID [facility]; Protocol Last Admin: 03/16/20 08:17 Dose: 1 applicatio Documented by: Carvedilol (Carvedilol 3.125 Mg Tablet) 3.125 mg PO BID [facility] Last Admin: 03/16/20 08:25 Dose: 3.125 mg Documented by: Dexamethasone (Dexamethasone 4 Mg Tablet) 6 mg PO DAILY [facility] Stop: 03/18/20 10:01 Last Admin: 03/16/20 08:25 Dose: 6 mg Documented by: Dextrose (Dextrose 50%-Water 25 Gm/50 Ml Disp.Syrin) 0 gm IV X1 PRN; Protocol PRN Reason: Hypoglycemia Enoxaparin Sodium (Enoxaparin 30 Mg/0.3 Ml Syringe) 30 mg SC BID [facility] Last Admin: 03/16/20 08:28 Dose: 30 mg Documented by: Finasteride (Finasteride 5 Mg Tablet) 5 mg PO DAILY [facility] Last Admin: 03/16/20 08:26 Dose: 5 mg Documented by: Furosemide (Furosemide 40 Mg Tablet) 40 mg PO DAILY [facility] Last Admin: 03/16/20 08:26 Dose: 40 mg Documented by: Glucagon (Glucagon 1 Mg/Ml Syringe) 1 mg IM .X1 PRN PRN Reason: Hypoglycemia Guaifenesin (Guaifenesin 10 Ml Udc (200mg/10ml)) 10 ml PO Q4H PRN PRN PRN Reason: COUGH Last Admin: 03/10/20 15:54 Dose: 10 ml Documented by: Sodium Chloride () 250 mls @ 15 mls/hr IV .[id number] PRN PRN Reason: Saline Flush Insulin Glargine (Insulin Glargine 100 Units/Ml Pen) 10 units SC BREAKFAST [facility] Last Admin: 03/16/20 08:18 Dose: 10 u Documented by: Insulin Glargine (Insulin Glargine 100 Units/Ml Pen) 10 units SC DINNER [facility] Last Admin: 03/15/20 18:25 Dose: 10 u Documented by: Insulin Human Lispro (Insulin Lispro 100 Unit/Ml Insuln.Pen) 0 unit SC 4X/DAYCM [facility]; Protocol Last Admin: 03/16/20 11:19 Dose: 2 u Documented by: Levothyroxine Sodium (Levothyroxine 75 Mcg Tablet) 75 mcg PO DAILY [facility] Last Admin: 03/16/20 08:26 Dose: 75 mcg Documented by: Ondansetron HCl (Ondansetron 4 Mg/2 Ml Vial) 4 mg IV Q8H PRN PRN PRN Reason: NAUSEA/VOMITING Senna/Docusate Sodium (Senna/Docusate Sodium 1 Tablet) 2 tablet PO BID PRN PRN PRN Reason: Constipation Sodium Chloride (0.9% Saline Lock 10 Ml Syringe) 10 - 40 ml IV UD PRN PRN Reason: SALINE FLUSH Last Admin: 03/15/20 08:41 Dose: 10 ml Documented by: Zolpidem Tartrate (Zolpidem Tartrate 5 Mg Tablet) 5 mg PO QHS PRN PRN PRN Reason: INSOMNIA STROKE Vital Signs/Narrative: Vital Signs Temp Pulse Resp BP Pulse Ox 03/16/20 11:00 64 03/16/20 08:25 97.5 F L 61 18 107/64 94 Medical Necessity - Tobacco Use Smoking Status: Former smoker Assessment/Plan All Active Problems (Last Reviewed 01/31/20 @ 14:[address] Andres Peres MD) Pneumonia due to COVID-19 virus (Acute) This is an 84 years old male patient came to ED for fever as well as mild chronic cough and he tested positive for COVID-19 antigen, found to have bilateral infiltrates on chest x-ray and he is being admitted for acute COVID-19 pneumonia and hypoxia. 1. Acute COVID 19 pneumonia Patient completed remdesivir on 03/13. Continue Decadron. 2. Acute hypoxic respiratory failure secondary to COVID-19 pneumonia and acute on chronic diastolic heart failure, present on admission: On high flow oxygen. ABG showed 7.44/28/38/57 on 15 L of oxygen suggestive of severe hypoxia with mild metabolic alkalosis. BNP 515. Chest x-ray individually reviewed and shows mild obliteration of left CP angle small bilateral prominent interstitial marking of left lower lobe. On high flow oxygen. Patient on furosemide 40 mg IV twice daily 03/15: Patient on high flow oxygen. Last echo from May 16, 2018 reported as EF 75% with mild concentric LVH. Stage I diastolic dysfunction and EF improved from 50% to 75%. Continue Lasix. Monitor electrolytes, kidney function, adequate intake and output and titrate the dose of Lasix accordingly. 03/16: Patient continues to require high oxygen 50 to 60%. BUN 55, creatinine 1.04. Patient looks well diuresed and Lasix was decreased to 40 mg IV daily yesterday. 4. DM type II: Glucose is between 140-190, fairly controlled. 03/14: Glucose fluctuate between 160 to 240 mg/dL. Insulin glargine dose increased to 10 units subcutaneous at breakfast and at night. On sliding scale insulin. 03/15: Glucose is fairly controlled. 03/16: Glucose fluctuates between 123-304. 5. VTE prophylaxis: LMWH, enoxaparin. Advanced care planning:. Patient does not have living status. 03/14: Patient treated that he wants intubation and CPR if needed. Microbiology Past 72 Hours 03/09/20 19:29 Blood Culture (Wb) - Left Hand Blood Culture - Final No growth in 5 days. 03/09/20 19:19 Blood Culture (Wb) - Anticubital Left Blood Culture - Final No growth in 5 days. 03/09/20 22:55 Urine, Catheterized Urine Culture - Final Mixed Gram Positive Organisms Laboratory Results 03/15/20 11:35: Sodium 136, Potassium 4.4, Chloride 99, Carbon Dioxide 31.0, Anion Gap 6, BUN 53 H, Creatinine 1.41 H, Estim Creat Clear Calc 41.71, Est GFR (MDRD) Af Amer 62, Est GFR (MDRD) Non-Af 51 L, BUN/Creatinine Ratio 37.6 H, Glucose 203 H, Calcium 8.5, Magnesium 2.1 03/15/20 11:35: Phosphorus 3.9 03/15/20 12:19: POC Glucose 185 H 03/15/20 17:09: POC Glucose 191 H 03/15/20 20:43: POC Glucose 304 H 03/16/20 05:28: Sodium 137, Potassium 4.6, Chloride 101, Carbon Dioxide 31.0, Anion Gap 5, BUN 55 H, Creatinine 1.04, Estim Creat Clear Calc 56.54, Est GFR (MDRD) Af Amer 88, Est GFR (MDRD) Non-Af 73, BUN/Creatinine Ratio 52.9 H, Glucose 141 H, Calcium 8.3 L 03/16/20 05:28: WBC 7.5, RBC 3.43 L, Hgb 10.3 L, Hct 31.4 L, MCV 91.5, MCH 30.0, MCHC 32.8, RDW Std Deviation 45.9 H, RDW Coeff of Lamont 14.0, Plt Count 251, MPV 9.9, Immature Gran % (Auto) 0.500, Neut % (Auto) 40.2 L, Lymph % (Auto) 56.8 H, [place] % (Auto) 2.1, Eos % (Auto) 0.1, Baso % (Auto) 0.3, Absolute Neuts (auto) 3.0, Absolute Lymphs (auto) 4.27, Nucleated RBC % 0 03/16/20 08:10: POC Glucose 123 H 03/16/20 11:18: POC Glucose 169 H Clinical Impression(s) from Imaging Studies Chest X-Ray 03/09/20 19:35 IMPRESSION: Findings suspicious for evolving inflammatory disease in the lower lobes greater on the left Chest X-Ray 03/14/20 08:47 IMPRESSION: Similar bilateral prominent interstitial markings with left lower lobe airspace disease concerning for acute infiltrate in the appropriate clinical setting. Electronically Signed: Chandan Rush DO at 10:02 EST , Service support , Inpatient E&M: [id number] Subs Hosp L2
[2020-03-16 11:50] LABS: Bedside Glucose 169 mg/dL (70-110)
[2020-03-16 17:50] LABS: Bedside Glucose 264 mg/dL (70-110)
[2020-03-16] MEDS: Atorvastatin Calcium 40 MG Tablet PO (20:01)
[2020-03-16 21:15] LABS: Bedside Glucose 280 mg/dL (70-110)
[2020-03-17] VITALS (20 sets, daily range): BP systolic 104–155; BP diastolic 62–83; PULSE 49–74; RESP 16–20; TEMP 36.5–37.1; O2SAT 90–100
[2020-03-17 07:29] LABS: Anion Gap 3 (5-15); BUN 48 mg/dL (7-18); BUN/Creat Ratio 48.3 RATIO (10-20); Calcium,Total 8.5 mg/dL (8.5-10.1); Chloride 102 mmol/L (98-107); Creatinine, Serum 0.99 mg/dL (0.70-1.30); EST Glomerular Filtration Rate 77 mL/min (>60); Est Glom Filt Rate - Afr Amer 93 mL/min (>60); Glucose 137 mg/dL (74-106); Sodium Level 138 mmol/L (136-145)
[2020-03-17 08:21] LABS: Bedside Glucose 125 mg/dL (70-110)
[2020-03-17] MEDS: Enoxaparin 30 MG/0.3 ML Syringe SC ×2 (09:04→20:32)
[2020-03-17] MEDS: Finasteride 5 MG Tablet PO (09:05)
[2020-03-17] MEDS: Menthol/Lanolin/Calamine/Znox 113 GM Tube 1 APPLIC TOPICAL ×2 (09:05→20:28)
[2020-03-17] MEDS: Levothyroxine 75 MCG Tablet PO (09:05)
[2020-03-17] MEDS: Aspirin E.C. 81 MG Tablet PO (09:05)
[2020-03-17] MEDS: Furosemide 40 MG Tablet PO (09:05)
[2020-03-17] MEDS: dexAMETHasone 4 MG Tablet 6 MG PO (09:05)
[2020-03-17] MEDS: Carvedilol 3.125 MG TABLET PO ×2 (09:06→20:28)
--- NOTE | 2020-03-17 12:14 | PN_ITS ---
Patient Problems: Active and Suspected Problems (Last Reviewed 01/31/20 @ 14:[address] Andres Peres MD) Pneumonia due to COVID-19 virus (Acute) Objective: Patient still short of breath on 50% high flow oxygen. Has dry cough. No fever. Physical exam General: Alert, Oriented x3, Cooperative HEENT: Atraumatic, PERRLA, EOMI, Normocephalic Oral: No Gingival or Mucosal Lesions/ Ulcerations Neck: Supple, No JVD, Negative Carotid Bruits Lungs: Air entry diminished in bilateral lung bases. Occasional bibasilar crackles. Severe hypoxia Cardiovascular: Regular rate, Regular Rhythm, Normal S1, Normal S2, No murmurs Abdomen: Bowel Sounds Present, Soft, Non Tender, Non-Distended : No renal angle tenderness. No suprapubic tenderness. Extremities: No edema, Capillary Refill Less than 3 Seconds Skin: No rashes, No breakdown Musculoskeletal: No Tenderness to Palpation of Joints or Extremities Neurological: Cranial nerves II-XII grossly intact, Deep Tendon Reflexes 2+/4 and Symmetrical, Neuro grossly intact Psych/Mental Status: Normal Affect, Appropriate. Vitals/I&O's: Vital Signs Temp Pulse Resp BP Pulse Ox 98.3 F 63 18 118/69 93 03/17/20 08:56 03/17/20 10:59 03/17/20 08:56 03/17/20 08:56 03/17/20 10:50 Oxygen Flow Rate (L/min) 45 Oxygen Delivery Method Airvo Weight: 184 lb 9.594 oz Body Mass Index (BMI) 26.4 Finger Stick Blood Glucose 123 Intake and Output for Last 24 Hours 03/15/20 03/16/20 03/17/20 23:59 23:59 23:59 Intake Total 1300 / 1300 720 / 840 120 / 120 Output Total 3125 / 3125 1150 / 1450 900 / 900 Balance -1825 / -1825 -430 / -610 -780 / -780 Microbiology Past 72 Hours 03/09/20 19:29 Blood Culture (Wb) - Left Hand Blood Culture - Final No growth in 5 days. 03/09/20 19:19 Blood Culture (Wb) - Anticubital Left Blood Culture - Final No growth in 5 days. Laboratory Results 03/16/20 16:26: POC Glucose 264 H 03/16/20 19:52: POC Glucose 280 H 03/17/20 06:30: Sodium 138, Potassium 5.0, Chloride 102, Carbon Dioxide 33.0 H, Anion Gap 3 L, BUN 48 H, Creatinine 0.99, Estim Creat Clear Calc 59.40, Est GFR (MDRD) Af Amer 93, Est GFR (MDRD) Non-Af 77, BUN/Creatinine Ratio 48.3 H, Glucose 137 H, Calcium 8.5 03/17/20 08:15: POC Glucose 125 H Current Medications Acetaminophen (Acetaminophen 325 Mg Tablet) 650 mg PO Q6H PRN PRN PRN Reason: Pain Score 1-10/Temp > 100.7 F Albuterol Sulfate (Albuterol Ih 8.5 Gm (Proair) Inhaler (200 Puffs)) 2 puff INHALATION Q4H PRN PRN PRN Reason: Shortness of breath, wheezing Last Admin: 03/12/20 06:19 Dose: 2 puff Documented by: Aspirin (Aspirin E.C. 81 Mg Tablet) 81 mg PO DAILY [facility] Last Admin: 03/17/20 09:05 Dose: 81 mg Documented by: Atorvastatin Calcium (Atorvastatin Calcium 40 Mg Tablet) 40 mg PO QHS [facility] Last Admin: 03/16/20 20:01 Dose: 40 mg Documented by: Calamine/Phenol (Menthol/Lanolin/Calamine/Znox 113 Gm Tube) 1 applic TOPICAL BID [facility]; Protocol Last Admin: 03/17/20 09:05 Dose: 1 applicatio Documented by: Carvedilol (Carvedilol 3.125 Mg Tablet) 3.125 mg PO BID [facility] Last Admin: 03/17/20 09:06 Dose: 3.125 mg Documented by: Dexamethasone (Dexamethasone 4 Mg Tablet) 6 mg PO DAILY [facility] Stop: 03/18/20 10:01 Last Admin: 03/17/20 09:05 Dose: 6 mg Documented by: Dextrose (Dextrose 50%-Water 25 Gm/50 Ml Disp.Syrin) 0 gm IV X1 PRN; Protocol PRN Reason: Hypoglycemia Enoxaparin Sodium (Enoxaparin 30 Mg/0.3 Ml Syringe) 30 mg SC BID [facility] Last Admin: 03/17/20 09:04 Dose: 30 mg Documented by: Finasteride (Finasteride 5 Mg Tablet) 5 mg PO DAILY [facility] Last Admin: 03/17/20 09:05 Dose: 5 mg Documented by: Furosemide (Furosemide 40 Mg Tablet) 40 mg PO DAILY [facility] Last Admin: 03/17/20 09:05 Dose: 40 mg Documented by: Glucagon (Glucagon 1 Mg/Ml Syringe) 1 mg IM .X1 PRN PRN Reason: Hypoglycemia Guaifenesin (Guaifenesin 10 Ml Udc (200mg/10ml)) 10 ml PO Q4H PRN PRN PRN Reason: COUGH Last Admin: 03/10/20 15:54 Dose: 10 ml Documented by: Sodium Chloride () 250 mls @ 15 mls/hr IV .[id number] PRN PRN Reason: Saline Flush Insulin Glargine (Insulin Glargine 100 Units/Ml Pen) 10 units SC BREAKFAST [facility] Last Admin: 03/17/20 09:06 Dose: 10 u Documented by: Insulin Glargine (Insulin Glargine 100 Units/Ml Pen) 10 units SC DINNER [facility] Last Admin: 03/16/20 16:28 Dose: 10 u Documented by: Insulin Human Lispro (Insulin Lispro 100 Unit/Ml Insuln.Pen) 0 unit SC 4X/DAYCM [facility]; Protocol Last Admin: 03/17/20 08:45 Dose: Not Given Documented by: Levothyroxine Sodium (Levothyroxine 75 Mcg Tablet) 75 mcg PO DAILY [facility] Last Admin: 03/17/20 09:05 Dose: 75 mcg Documented by: Ondansetron HCl (Ondansetron 4 Mg/2 Ml Vial) 4 mg IV Q8H PRN PRN PRN Reason: NAUSEA/VOMITING Polyethylene Glycol (Polyethylene Glycol 3350 17 Gm Packet) 17 gm PO DAILY [facility] Senna/Docusate Sodium (Senna/Docusate Sodium 1 Tablet) 2 tablet PO BID PRN PRN PRN Reason: Constipation Sodium Chloride (0.9% Saline Lock 10 Ml Syringe) 10 - 40 ml IV UD PRN PRN Reason: SALINE FLUSH Last Admin: 03/15/20 08:41 Dose: 10 ml Documented by: Zolpidem Tartrate (Zolpidem Tartrate 5 Mg Tablet) 5 mg PO QHS PRN PRN PRN Reason: INSOMNIA STROKE Vital Signs/Narrative: Vital Signs Temp Pulse Resp BP Pulse Ox 03/17/20 10:59 63 03/17/20 10:50 66 93 03/17/20 10:00 93 03/17/20 09:10 96 03/17/20 08:56 98.3 F 58 L 18 118/69 96 Medical Necessity - Tobacco Use Smoking Status: Former smoker Assessment/Plan All Active Problems (Last Reviewed 01/31/20 @ 14:[address] Andres Peres MD) Pneumonia due to COVID-19 virus (Acute) This is an 84 years old male patient came to ED for fever as well as mild chronic cough and he tested positive for COVID-19 antigen, found to have bilateral infiltrates on chest x-ray and he is being admitted for acute COVID-19 pneumonia and hypoxia. 1. Acute COVID 19 pneumonia Patient completed remdesivir on 03/13. Continue Decadron. 2. Acute hypoxic respiratory failure secondary to COVID-19 pneumonia and acute on chronic diastolic heart failure, present on admission: On high flow oxygen. ABG showed 7.44/28/38/57 on 15 L of oxygen suggestive of severe hypoxia with mild metabolic alkalosis. BNP 515. Chest x-ray individually reviewed and shows mild obliteration of left CP angle small bilateral prominent interstitial marking of left lower lobe. On high flow oxygen. Patient on furosemide 40 mg IV twice daily 03/15: Patient on high flow oxygen. Last echo from May 16, 2018 reported as EF 75% with mild concentric LVH. Stage I diastolic dysfunction and EF improved from 50% to 75%. Continue Lasix. Monitor electrolytes, kidney function, adequate intake and output and titrate the dose of Lasix accordingly. 03/16: Patient continues to require high oxygen 50 to 60%. BUN 55, creatinine 1.04. Patient looks well diuresed and Lasix was decreased to 40 mg IV daily yesterday. 03/17: We will continue oxygen treatment. Patient has negative fluid balance about 8.5 L. Continue Decadron and Lasix. Incentive spirometry and pep. 4. DM type II: Glucose is between 140-190, fairly controlled. 03/14: Glucose fluctuate between 160 to 240 mg/dL. Insulin glargine dose increased to 10 units subcutaneous at breakfast and at night. On sliding scale insulin. 03/15: Glucose is fairly controlled. 03/16: Glucose fluctuates between 123-304. 5. VTE prophylaxis: LMWH, enoxaparin. Advanced care planning:. Patient does not have living status. 03/14: Patient treated that he wants intubation and CPR if needed. Microbiology Past 72 Hours 03/09/20 19:29 Blood Culture (Wb) - Left Hand Blood Culture - Final No growth in 5 days. 03/09/20 19:19 Blood Culture (Wb) - Anticubital Left Blood Culture - Final No growth in 5 days. Laboratory Results 03/16/20 16:26: POC Glucose 264 H 03/16/20 19:52: POC Glucose 280 H 03/17/20 06:30: Sodium 138, Potassium 5.0, Chloride 102, Carbon Dioxide 33.0 H, Anion Gap 3 L, BUN 48 H, Creatinine 0.99, Estim Creat Clear Calc 59.40, Est GFR (MDRD) Af Amer 93, Est GFR (MDRD) Non-Af 77, BUN/Creatinine Ratio 48.3 H, Glucose 137 H, Calcium 8.5 03/17/20 08:15: POC Glucose 125 H Clinical Impression(s) from Imaging Studies Chest X-Ray 03/09/20 19:35 IMPRESSION: Findings suspicious for evolving inflammatory disease in the lower lobes greater on the left Chest X-Ray 03/14/20 08:47 IMPRESSION: Similar bilateral prominent interstitial markings with left lower lobe airspace disease concerning for acute infiltrate in the appropriate clinical setting. Electronically Signed: Chandan Rush DO at 10:02 EST , Service support , Inpatient E&M: [id number] Subs Hosp L2
[2020-03-17] MEDS: Polyethylene Glycol 3350 17 GM PACKET PO (12:31)
[2020-03-17] MEDS: Insulin Lispro 100 UNIT/ML INSULN.PEN SC ×2 (12:34→16:00)
[2020-03-17 12:51] LABS: Bedside Glucose 158 mg/dL (70-110)
[2020-03-17 16:50] LABS: Bedside Glucose 255 mg/dL (70-110)
[2020-03-17] MEDS: Atorvastatin Calcium 40 MG Tablet PO (20:28)
[2020-03-17] MEDS: Acetaminophen 325 MG Tablet 650 MG PO (20:32)
[2020-03-18] VITALS (16 sets, daily range): BP systolic 110–155; BP diastolic 65–76; PULSE 51–95; RESP 18–20; TEMP 35.3–36.6; O2SAT 93–99
[2020-03-18] MEDS: Insulin Lispro 100 UNIT/ML INSULN.PEN SC ×5 (00:19→20:52)
[2020-03-18 00:36] LABS: Bedside Glucose 163 mg/dL (70-110)
[2020-03-18 06:02] LABS: Absolute Lymphocyte Count 4.22 X10^3/uL (0.83-4.51); Absolute Neutrophil Count 4.4 X10^3/uL (2.0-7.7); Basophil# 0.01 X10^3/uL; Basophil% 0.1 % (0-1); Hematocrit 32.7 % (40-54); Hemoglobin 10.3 g/dL (13.0-16.5); Lymphocyte # 4.22 X10^3/ul (4.0); Lymphocyte % 47.7 % (19-41); Mean Corp Hgb Conc 31.5 g/dL (32-36); Mean Corpuscular Hgb 28.8 pg (27.0-32.0); Mean Corpuscular Volume 91.3 fL (80-94); Mean Platelet Vol. 9.6 fl (6.2-12.0); Monocyte# 0.19 X10^3/uL; Monocyte% 2.1 % (0-10); NRBC Flagged by Analyzer 0 % (0-5); Neutrophil # 4.38 X10^3/uL (2.7-7.7); Neutrophil % 49.6 % (47-70); Platelet Count 294 K/mm3 (150-450); RBC Distribution Width CV 13.5 % (11.6-14.6); RBC Distribution Width SD 45.9 fl (35.1-43.9); Red Blood Count 3.58 M/mm3 (4.6-6.2); White Blood Count 8.8 K/mm3 (4.4-11.0)
[2020-03-18 06:31] LABS: ALB/GLOB Ratio 0.6 RATIO (0.9-2.4); AST(SGOT) 23 U/L (15-37); Alanine Aminotransfer ALT/SGPT 50 U/L (16-61); Albumin, Serum 2.5 g/dL (3.2-5.0); Alkaline Phosphatase 78 U/L (45-117); Anion Gap 5 (5-15); BUN 49 mg/dL (7-18); BUN/Creat Ratio 45.4 RATIO (10-20); Calcium,Total 8.4 mg/dL (8.5-10.1); Chloride 100 mmol/L (98-107); Creatinine, Serum 1.08 mg/dL (0.70-1.30); EST Glomerular Filtration Rate 70 mL/min (>60); Est Glom Filt Rate - Afr Amer 84 mL/min (>60); Estimated Creatinine Clearance 54.45 ml/min; Globulin 3.9 g/dL (2.2-4.2); Glucose 153 mg/dL (74-106); Potassium 4.6 mmol/L (3.5-5.1); Protein, Total 6.4 g/dL (6.4-8.2); Sodium Level 136 mmol/L (136-145)
[2020-03-18] MEDS: Menthol/Lanolin/Calamine/Znox 113 GM Tube 1 APPLIC TOPICAL ×2 (08:36→20:52)
[2020-03-18] MEDS: dexAMETHasone 4 MG Tablet 6 MG PO (09:10)
[2020-03-18] MEDS: Carvedilol 3.125 MG TABLET PO ×2 (09:10→20:53)
[2020-03-18] MEDS: Levothyroxine 75 MCG Tablet PO (09:11)
[2020-03-18] MEDS: Furosemide 40 MG Tablet PO (09:11)
[2020-03-18] MEDS: Finasteride 5 MG Tablet PO (09:11)
[2020-03-18] MEDS: Aspirin E.C. 81 MG Tablet PO (09:11)
[2020-03-18] MEDS: Enoxaparin 30 MG/0.3 ML Syringe SC ×2 (09:13→20:54)
--- NOTE | 2020-03-18 11:38 | CT_ITS ---
STUDY: CT BRAIN WITHOUT CONTRAST REASON FOR EXAM: Male, 84 years old. ALTERED MENTAL STATUS. RADIATION DOSAGE (If Supplied By Facility): CTDIvol = ( 44.99 ) mGy, DLP = ( 897.35 ) mGycm TECHNIQUE: Transaxial CT imaging of the brain was performed without administration of intravenous contrast material. Individualized dose optimization techniques were used for this CT. COMPARISON: No relevant priors. FINDINGS: Normal soft tissue structures. Normal calvarium. There is mild cerebral atrophy with widening of the extra-axial spaces and ventricular dilatation. There are areas of decreased attenuation within the white matter tracts of the supratentorial brain, consistent with microvascular disease changes. CSF collection in the right middle cranial fossa is compatible with arachnoid cyst, measuring 3.2 x 3.7 cm with some compression of the temporal lobe but no edema. Well-defined low-density lesion of the left basal ganglia likely represents a prominent perivascular space versus chronic lacunar infarction, former favored. Normal brainstem. Normal cerebellum. Atherosclerosis of the carotid siphons. There is no intracranial hemorrhage. There are no findings of an acute ischemic infarction. Normal visualized paranasal sinuses. CT/Brain/Head without Contrast IMPRESSION: 1. No acute intracranial hemorrhage or mass effect. 2. Central parenchymal volume loss. White matter changes that are nonspecific but most commonly associated with chronic small vessel ischemic disease. 3. Right middle cranial arachnoid cyst. Electronically Signed: Roger Ambrocio MD ([place]) at 13:21 EST , Service support ,
[2020-03-18 12:03] LABS: Phosphorus 4.5 mg/dL (2.5-4.9)
[2020-03-18 12:17] LABS: Magnesium 2.5 mg/dL (1.6-2.6)
--- NOTE | 2020-03-18 12:34 | PCM.PN.HOSP ---
Patient Problems: Active and Suspected Problems (Last Reviewed 01/31/20 @ 14:[address] Andres Peres MD) Pneumonia due to COVID-19 virus (Acute) Reason for Visit: Follow-up for acute hypoxic respiratory failure from COVID-19 pneumonia and confusion Objective: In the morning, when I saw the patient, he is awake alert and oriented x3 but seems delayed response or answering the question. As per nursing staff and respiratory therapist, he seems more confused and disoriented. No fever. Heart rate 66. Blood pressure is normal. Pulse ox 93% on 5 to 6 L of oxygen. Patient had bowel movement yesterday. Physical exam General: Awake, Oriented x3, Cooperative HEENT: Atraumatic, PERRLA, EOMI, Normocephalic Oral: No Gingival or Mucosal Lesions/ Ulcerations Neck: Supple, No JVD, Negative Carotid Bruits Lungs: Air entry diminished in bilateral lung bases. Bibasilar occasional rales present. Cardiovascular: Regular rate, Regular Rhythm, Normal S1, Normal S2, No murmurs Abdomen: Bowel Sounds Present, Soft, Non Tender, Non-Distended : No renal angle tenderness. No suprapubic tenderness. Extremities: No edema, Capillary Refill Less than 3 Seconds Skin: No rashes, No breakdown Musculoskeletal: No Tenderness to Palpation of Joints or Extremities Neurological: Cranial nerves II-XII grossly intact, Deep Tendon Reflexes 2+/4. No focal neurological deficit. Psych/Mental Status: Normal Affect, Appropriate. Vitals/I&O's: Vital Signs Temp Pulse Resp BP Pulse Ox 97.6 F L 66 20 H 133/71 H 93 03/18/20 08:40 03/18/20 08:40 03/18/20 09:45 03/18/20 08:40 03/18/20 08:40 Oxygen Flow Rate (L/min) 5 Oxygen Delivery Method Nasal Cannula Weight: 184 lb 9.594 oz Body Mass Index (BMI) 26.4 Finger Stick Blood Glucose 123 Intake and Output for Last 24 Hours 03/16/20 03/17/20 03/18/20 23:59 23:59 23:59 Intake Total 720 / 840 770 / 770 Output Total 1150 / 1450 1300 / 1500 400 / 400 Balance -430 / -610 -530 / -730 -400 / -400 Laboratory Results 03/17/20 12:34: POC Glucose 158 H 03/17/20 15:54: POC Glucose 255 H 03/18/20 00:13: POC Glucose 163 H 03/18/20 05:36: WBC 8.8, RBC 3.58 L, Hgb 10.3 L, Hct 32.7 L, MCV 91.3, MCH 28.8, MCHC 31.5 L, RDW Std Deviation 45.9 H, RDW Coeff of [place]ont 13.5, Plt Count 294, MPV 9.6, Immature Gran % (Auto) 0.500, Neut % (Auto) 49.6, Lymph % (Auto) 47.7 H, [place] % (Auto) 2.1, Eos % (Auto) 0.0, Baso % (Auto) 0.1, Absolute Neuts (auto) 4.4, Absolute Lymphs (auto) 4.22, Nucleated RBC % 0 03/18/20 05:36: Sodium 136, Potassium 4.6, Chloride 100, Carbon Dioxide 31.0, Anion Gap 5, BUN 49 H, Creatinine 1.08, Estim Creat Clear Calc 54.45, Est GFR (MDRD) Af Amer 84, Est GFR (MDRD) Non-Af 70, BUN/Creatinine Ratio 45.4 H, Glucose 153 H, Calcium 8.4 L, Total Bilirubin 0.50, AST 23, ALT 50, Alkaline Phosphatase 78, Total Protein 6.4, Albumin 2.5 L, Globulin 3.9, Albumin/Globulin Ratio 0.6 L 03/18/20 05:36: Magnesium 2.5, Folate 11.40 03/18/20 05:36: Phosphorus 4.5 Current Medications Acetaminophen (Acetaminophen 325 Mg Tablet) 650 mg PO Q6H PRN PRN PRN Reason: Pain Score 1-10/Temp > 100.7 F Last Admin: 03/17/20 20:32 Dose: 650 mg Documented by: Albuterol Sulfate (Albuterol Ih 8.5 Gm (Proair) Inhaler (200 Puffs)) 2 puff INHALATION Q4H PRN PRN PRN Reason: Shortness of breath, wheezing Last Admin: 03/17/20 20:27 Dose: 2 puff Documented by: Aspirin (Aspirin E.C. 81 Mg Tablet) 81 mg PO DAILY [facility] Last Admin: 03/18/20 09:11 Dose: 81 mg Documented by: Atorvastatin Calcium (Atorvastatin Calcium 40 Mg Tablet) 40 mg PO QHS [facility] Last Admin: 03/17/20 20:28 Dose: 40 mg Documented by: Calamine/Phenol (Menthol/Lanolin/Calamine/Znox 113 Gm Tube) 1 applic TOPICAL BID [facility]; Protocol Last Admin: 03/18/20 08:36 Dose: 1 applicatio Documented by: Carvedilol (Carvedilol 3.125 Mg Tablet) 3.125 mg PO BID [facility] Last Admin: 03/18/20 09:10 Dose: 3.125 mg Documented by: Dextrose (Dextrose 50%-Water 25 Gm/50 Ml Disp.Syrin) 0 gm IV X1 PRN; Protocol PRN Reason: Hypoglycemia Enoxaparin Sodium (Enoxaparin 30 Mg/0.3 Ml Syringe) 30 mg SC BID [facility] Last Admin: 03/18/20 09:13 Dose: 30 mg Documented by: Finasteride (Finasteride 5 Mg Tablet) 5 mg PO DAILY [facility] Last Admin: 03/18/20 09:11 Dose: 5 mg Documented by: Furosemide (Furosemide 40 Mg Tablet) 40 mg PO DAILY [facility] Last Admin: 03/18/20 09:11 Dose: 40 mg Documented by: Glucagon (Glucagon 1 Mg/Ml Syringe) 1 mg IM .X1 PRN PRN Reason: Hypoglycemia Guaifenesin (Guaifenesin 10 Ml Udc (200mg/10ml)) 10 ml PO Q4H PRN PRN PRN Reason: COUGH Last Admin: 03/10/20 15:54 Dose: 10 ml Documented by: Sodium Chloride () 250 mls @ 15 mls/hr IV .[id number] PRN PRN Reason: Saline Flush Insulin Glargine (Insulin Glargine 100 Units/Ml Pen) 10 units SC BREAKFAST [facility] Last Admin: 03/18/20 08:35 Dose: 10 u Documented by: Insulin Glargine (Insulin Glargine 100 Units/Ml Pen) 10 units SC DINNER [facility] Last Admin: 03/17/20 16:18 Dose: 10 u Documented by: Insulin Human Lispro (Insulin Lispro 100 Unit/Ml Insuln.Pen) 0 unit SC 4X/DAYCM [facility]; Protocol Last Admin: 03/18/20 08:35 Dose: 2 u Documented by: Levothyroxine Sodium (Levothyroxine 75 Mcg Tablet) 75 mcg PO DAILY [facility] Last Admin: 03/18/20 09:11 Dose: 75 mcg Documented by: Ondansetron HCl (Ondansetron 4 Mg/2 Ml Vial) 4 mg IV Q8H PRN PRN PRN Reason: NAUSEA/VOMITING Polyethylene Glycol (Polyethylene Glycol 3350 17 Gm Packet) 17 gm PO DAILY [facility] Last Admin: 03/18/20 09:48 Dose: Not Given Documented by: Senna/Docusate Sodium (Senna/Docusate Sodium 1 Tablet) 2 tablet PO BID PRN PRN PRN Reason: Constipation Sodium Chloride (0.9% Saline Lock 10 Ml Syringe) 10 - 40 ml IV UD PRN PRN Reason: SALINE FLUSH Last Admin: 03/15/20 08:41 Dose: 10 ml Documented by: Zolpidem Tartrate (Zolpidem Tartrate 5 Mg Tablet) 5 mg PO QHS PRN PRN PRN Reason: INSOMNIA STROKE Vital Signs/Narrative: Vital Signs Temp Pulse Resp BP Pulse Ox 03/18/20 09:45 20 H 03/18/20 08:40 97.6 F L 66 20 H 133/71 H 93 Medical Necessity - Tobacco Use Smoking Status: Former smoker Assessment/Plan All Active Problems (Last Reviewed 01/31/20 @ 14:[address] Andres Peres MD) Pneumonia due to COVID-19 virus (Acute) This is an 84 years old male patient came to ED for fever as well as mild chronic cough and he tested positive for COVID-19 antigen, found to have bilateral infiltrates on chest x-ray and he is being admitted for acute COVID-19 pneumonia and hypoxia. 1. Acute COVID 19 pneumonia Patient completed remdesivir on 03/13. Continue Decadron. 2. Acute hypoxic respiratory failure secondary to COVID-19 pneumonia and acute on chronic diastolic heart failure, present on admission: On high flow oxygen. ABG showed 7.44/28/38/57 on 15 L of oxygen suggestive of severe hypoxia with mild metabolic alkalosis. BNP 515. Chest x-ray individually reviewed and shows mild obliteration of left CP angle small bilateral prominent interstitial marking of left lower lobe. On high flow oxygen. Patient on furosemide 40 mg IV twice daily 03/15: Patient on high flow oxygen. Last echo from May 16, 2018 reported as EF 75% with mild concentric LVH. Stage I diastolic dysfunction and EF improved from 50% to 75%. Continue Lasix. Monitor electrolytes, kidney function, adequate intake and output and titrate the dose of Lasix accordingly. 03/16: Patient continues to require high oxygen 50 to 60%. BUN 55, creatinine 1.04. Patient looks well diuresed and Lasix was decreased to 40 mg IV daily yesterday. 03/17: We will continue oxygen treatment. Patient has negative fluid balance about 8.5 L. Continue Decadron and Lasix. Incentive spirometry and pep. 03/18: Continue the same treatment. On Lasix 40 mg daily. 3. Acute encephalopathy with history of possible dementia/cognitive deficit: CT head, serum ammonia, folic acid and B12 ordered. Patient electrolytes are within normal limit. BUN mildly elevated 49, creatinine normal 4. DM type II: Glucose is between 140-190, fairly controlled. 03/14: Glucose fluctuate between 160 to 240 mg/dL. Insulin glargine dose increased to 10 units subcutaneous at breakfast and at night. On sliding scale insulin. 03/15: Glucose is fairly controlled. 03/16: Glucose fluctuates between 123-304. 03/06: Glucose in normal limit, 153 in BMP 5. VTE prophylaxis: LMWH, enoxaparin. Advanced care planning:. Patient does not have living status. 03/14: Patient treated that he wants intubation and CPR if needed. Laboratory Results 03/17/20 12:34: POC Glucose 158 H 03/17/20 15:54: POC Glucose 255 H 03/18/20 00:13: POC Glucose 163 H 03/18/20 05:36: WBC 8.8, RBC 3.58 L, Hgb 10.3 L, Hct 32.7 L, MCV 91.3, MCH 28.8, MCHC 31.5 L, RDW Std Deviation 45.9 H, RDW Coeff of [place] 13.5, Plt Count 294, MPV 9.6, Immature Gran % (Auto) 0.500, Neut % (Auto) 49.6, Lymph % (Auto) 47.7 H, [place] % (Auto) 2.1, Eos % (Auto) 0.0, Baso % (Auto) 0.1, Absolute Neuts (auto) 4.4, Absolute Lymphs (auto) 4.22, Nucleated RBC % 0 03/18/20 05:36: Sodium 136, Potassium 4.6, Chloride 100, Carbon Dioxide 31.0, Anion Gap 5, BUN 49 H, Creatinine 1.08, Estim Creat Clear Calc 54.45, Est GFR (MDRD) Af Amer 84, Est GFR (MDRD) Non-Af 70, BUN/Creatinine Ratio 45.4 H, Glucose 153 H, Calcium 8.4 L, Total Bilirubin 0.50, AST 23, ALT 50, Alkaline Phosphatase 78, Total Protein 6.4, Albumin 2.5 L, Globulin 3.9, Albumin/Globulin Ratio 0.6 L 03/18/20 05:36: Magnesium 2.5, Folate 11.40 03/18/20 05:36: Phosphorus 4.5 03/18/20 12:20: Vitamin B12 Pending 03/18/20 12:20: Ammonia Pending Clinical Impression(s) from Imaging Studies Chest X-Ray 03/09/20 19:35 IMPRESSION: Findings suspicious for evolving inflammatory disease in the lower lobes greater on the left Chest X-Ray 03/14/20 08:47 IMPRESSION: Similar bilateral prominent interstitial markings with left lower lobe airspace disease concerning for acute infiltrate in the appropriate clinical setting. Electronically Signed: Chandan Rush DO at 10:02 EST , Service support , Inpatient E&M: [id number] Subs Hosp L2
[2020-03-18 12:51] LABS: Bedside Glucose 190 mg/dL (70-110)
[2020-03-18 13:16] LABS: Vitamin B12 1123 pg/mL (211-911)
[2020-03-18 16:41] LABS: Bedside Glucose 273 mg/dL (70-110)
[2020-03-18] MEDS: guaiFENesin 10 ML UDC (200MG/10ML) PO (20:53)
[2020-03-18] MEDS: Acetaminophen 325 MG Tablet 650 MG PO (20:53)
[2020-03-18] MEDS: Atorvastatin Calcium 40 MG Tablet PO (20:54)
[2020-03-18 21:11] LABS: Bedside Glucose 220 mg/dL (70-110)
[2020-03-19] VITALS (12 sets, daily range): BP systolic 82–141; BP diastolic 40–89; PULSE 49–78; RESP 16–20; TEMP 36.4–37.1; O2SAT 94–98
[2020-03-19 06:55] LABS: Bedside Glucose 86 mg/dL (70-110)
--- NOTE | 2020-03-19 07:51 | PCM.PN.HOSP ---
Patient Problems: Active and Suspected Problems (Last Reviewed 01/31/20 @ 14:[address] Andres Peres MD) Pneumonia due to COVID-19 virus (Acute) Objective: Heart rate and blood pressure was in normal range at rest. On 4 L of oxygen. It dropped to 82/40 on walking although patient is asymptomatic with regards to dizziness or lightheadedness. Blood pressure recovered 96/58 at rest after elevating feet for an hour. Patient was also confused in the morning and disoriented to time place and person. His glucose was found 86. Repeat glucose 246 after meal. After the meal, patient more awake and alert and oriented x3. Physical exam General: Confused, disoriented on my exam. HEENT: Atraumatic, PERRLA, EOMI, Normocephalic Oral: No Gingival or Mucosal Lesions/ Ulcerations Neck: Supple, No JVD, Negative Carotid Bruits Lungs: Air entry diminished in bilateral lung bases. Bibasilar expiratory rhonchi present. Cardiovascular: Regular rate, Regular Rhythm, Normal S1, Normal S2, No murmurs Abdomen: Bowel Sounds Present, Soft, Non Tender, Non-Distended : No renal angle tenderness. No suprapubic tenderness. Extremities: No edema, Capillary Refill Less than 3 Seconds Skin: No rashes, No breakdown Musculoskeletal: No Tenderness to Palpation of Joints or Extremities Neurological: Cranial nerves II-XII grossly intact, Deep Tendon Reflexes 2+/4 and Symmetrical, Neuro grossly intact Psych/Mental Status: Normal Affect, Appropriate. Vitals/I&O's: Vital Signs Temp Pulse Resp BP Pulse Ox 97.7 F L 68 18 138/81 H 95 03/19/20 06:43 03/19/20 06:43 03/19/20 06:43 03/19/20 06:43 03/19/20 06:43 Oxygen Flow Rate (L/min) 4 Oxygen Delivery Method Nasal Cannula Weight: 184 lb 9.594 oz Body Mass Index (BMI) 26.4 Finger Stick Blood Glucose 123 Intake and Output for Last 24 Hours 03/17/20 03/18/20 03/19/20 23:59 23:59 23:59 Intake Total 770 / 770 360 / 360 300 / 300 Output Total 1300 / 1500 727 / 727 900 / 900 Balance -530 / -730 -367 / -367 -600 / -600 Laboratory Results 03/18/20 05:36: Magnesium 2.5, Folate 11.40 03/18/20 05:36: Phosphorus 4.5 03/18/20 11:20: POC Glucose 190 H 03/18/20 12:20: Vitamin B12 1123 H 03/18/20 12:20: Ammonia 23.0 03/18/20 16:29: POC Glucose 273 H 03/18/20 20:51: POC Glucose 220 H 03/19/20 06:41: POC Glucose 86 Current Medications Acetaminophen (Acetaminophen 325 Mg Tablet) 650 mg PO Q6H PRN PRN PRN Reason: Pain Score 1-10/Temp > 100.7 F Last Admin: 03/18/20 20:53 Dose: 650 mg Documented by: Albuterol Sulfate (Albuterol Ih 8.5 Gm (Proair) Inhaler (200 Puffs)) 2 puff INHALATION Q4H PRN PRN PRN Reason: Shortness of breath, wheezing Last Admin: 03/17/20 20:27 Dose: 2 puff Documented by: Aspirin (Aspirin E.C. 81 Mg Tablet) 81 mg PO DAILY [facility] Last Admin: 03/18/20 09:11 Dose: 81 mg Documented by: Atorvastatin Calcium (Atorvastatin Calcium 40 Mg Tablet) 40 mg PO QHS [facility] Last Admin: 03/18/20 20:54 Dose: 40 mg Documented by: Calamine/Phenol (Menthol/Lanolin/Calamine/Znox 113 Gm Tube) 1 applic TOPICAL BID [facility]; Protocol Last Admin: 03/18/20 20:52 Dose: 1 applicatio Documented by: Carvedilol (Carvedilol 3.125 Mg Tablet) 3.125 mg PO BID [facility] Last Admin: 03/18/20 20:53 Dose: 3.125 mg Documented by: Dextrose (Dextrose 50%-Water 25 Gm/50 Ml Disp.Syrin) 0 gm IV X1 PRN; Protocol PRN Reason: Hypoglycemia Enoxaparin Sodium (Enoxaparin 30 Mg/0.3 Ml Syringe) 30 mg SC BID [facility] Last Admin: 03/18/20 20:54 Dose: 30 mg Documented by: Finasteride (Finasteride 5 Mg Tablet) 5 mg PO DAILY [facility] Last Admin: 03/18/20 09:11 Dose: 5 mg Documented by: Furosemide (Furosemide 40 Mg Tablet) 40 mg PO DAILY [facility] Last Admin: 03/18/20 09:11 Dose: 40 mg Documented by: Glucagon (Glucagon 1 Mg/Ml Syringe) 1 mg IM .X1 PRN PRN Reason: Hypoglycemia Guaifenesin (Guaifenesin 10 Ml Udc (200mg/10ml)) 10 ml PO Q4H PRN PRN PRN Reason: COUGH Last Admin: 03/18/20 20:53 Dose: 10 ml Documented by: Sodium Chloride () 250 mls @ 15 mls/hr IV .[id number] PRN PRN Reason: Saline Flush Insulin Glargine (Insulin Glargine 100 Units/Ml Pen) 10 units SC BREAKFAST [facility] Last Admin: 03/18/20 08:35 Dose: 10 u Documented by: Insulin Glargine (Insulin Glargine 100 Units/Ml Pen) 10 units SC DINNER [facility] Last Admin: 03/18/20 16:31 Dose: 10 u Documented by: Insulin Human Lispro (Insulin Lispro 100 Unit/Ml Insuln.Pen) 0 unit SC 4X/DAYCM [facility]; Protocol Last Admin: 03/19/20 07:42 Dose: Not Given Documented by: Levothyroxine Sodium (Levothyroxine 75 Mcg Tablet) 75 mcg PO DAILY [facility] Last Admin: 03/18/20 09:11 Dose: 75 mcg Documented by: Ondansetron HCl (Ondansetron 4 Mg/2 Ml Vial) 4 mg IV Q8H PRN PRN PRN Reason: NAUSEA/VOMITING Polyethylene Glycol (Polyethylene Glycol 3350 17 Gm Packet) 17 gm PO DAILY [facility] Last Admin: 03/18/20 09:48 Dose: Not Given Documented by: Senna/Docusate Sodium (Senna/Docusate Sodium 1 Tablet) 2 tablet PO BID PRN PRN PRN Reason: Constipation Sodium Chloride (0.9% Saline Lock 10 Ml Syringe) 10 - 40 ml IV UD PRN PRN Reason: SALINE FLUSH Last Admin: 03/15/20 08:41 Dose: 10 ml Documented by: Zolpidem Tartrate (Zolpidem Tartrate 5 Mg Tablet) 5 mg PO QHS PRN PRN PRN Reason: INSOMNIA STROKE Vital Signs/Narrative: Vital Signs Temp Pulse Resp BP Pulse Ox 03/19/20 06:43 97.7 F L 68 18 138/81 H 95 Medical Necessity - Tobacco Use Smoking Status: Former smoker Assessment/Plan All Active Problems (Last Reviewed 01/31/20 @ 14:[address] Andres Peres MD) Pneumonia due to COVID-19 virus (Acute) This is an 84 years old male patient came to ED for fever as well as mild chronic cough and he tested positive for COVID-19 antigen, found to have bilateral infiltrates on chest x-ray and he is being admitted for acute COVID-19 pneumonia and hypoxia. 1. Acute COVID 19 pneumonia Patient completed remdesivir on 03/13. Continue Decadron. 2. Acute hypoxic respiratory failure secondary to COVID-19 pneumonia and acute on chronic diastolic heart failure, present on admission: On high flow oxygen. ABG showed 7.44/28/38/57 on 15 L of oxygen suggestive of severe hypoxia with mild metabolic alkalosis. BNP 515. Chest x-ray individually reviewed and shows mild obliteration of left CP angle small bilateral prominent interstitial marking of left lower lobe. On high flow oxygen. Patient on furosemide 40 mg IV twice daily 03/15: Patient on high flow oxygen. Last echo from May 16, 2018 reported as EF 75% with mild concentric LVH. Stage I diastolic dysfunction and EF improved from 50% to 75%. Continue Lasix. Monitor electrolytes, kidney function, adequate intake and output and titrate the dose of Lasix accordingly. 03/16: Patient continues to require high oxygen 50 to 60%. BUN 55, creatinine 1.04. Patient looks well diuresed and Lasix was decreased to 40 mg IV daily yesterday. 03/17: We will continue oxygen treatment. Patient has negative fluid balance about 8.5 L. Continue Decadron and Lasix. Incentive spirometry and pep. 03/18: Continue the same treatment. On Lasix 40 mg daily. 3. Acute encephalopathy most probably due to hypoglycemia/metabolic encephalopathy with history of possible dementia/cognitive deficit: Patient electrolytes are within normal limit. BUN mildly elevated 49, creatinine normal CT head was done does not show any acute intracranial abnormality but central parenchymal volume loss suggestive of mild dementia. Folic acid normal but B12 1123 elevated high. Serum ammonia level normal. 4. DM type II: Glucose is between 140-190, fairly controlled. 03/14: Glucose fluctuate between 160 to 240 mg/dL. Insulin glargine dose increased to 10 units subcutaneous at breakfast and at night. On sliding scale insulin. 03/15: Glucose is fairly controlled. 03/16: Glucose fluctuates between 123-304. 03/19: Patient had low glucose 80 6 in the morning. Insulin dose adjusted. Discontinue Lantus at night. 5. VTE prophylaxis: LMWH, enoxaparin. Advanced care planning:. Patient does not have living status. 03/14: Patient treated that he wants intubation and CPR if needed. Laboratory Results 03/17/20 12:34: POC Glucose 158 H 03/17/20 15:54: POC Glucose 255 H 03/18/20 00:13: POC Glucose 163 H 03/18/20 05:36: WBC 8.8, RBC 3.58 L, Hgb 10.3 L, Hct 32.7 L, MCV 91.3, MCH 28.8, MCHC 31.5 L, RDW Std Deviation 45.9 H, RDW Coeff of Lamont 13.5, Plt Count 294, MPV 9.6, Immature Gran % (Auto) 0.500, Neut % (Auto) 49.6, Lymph % (Auto) 47.7 H, Mason % (Auto) 2.1, Eos % (Auto) 0.0, Baso % (Auto) 0.1, Absolute Neuts (auto) 4.4, Absolute Lymphs (auto) 4.22, Nucleated RBC % 0 03/18/20 05:36: Sodium 136, Potassium 4.6, Chloride 100, Carbon Dioxide 31.0, Anion Gap 5, BUN 49 H, Creatinine 1.08, Estim Creat Clear Calc 54.45, Est GFR (MDRD) Af Amer 84, Est GFR (MDRD) Non-Af 70, BUN/Creatinine Ratio 45.4 H, Glucose 153 H, Calcium 8.4 L, Total Bilirubin 0.50, AST 23, ALT 50, Alkaline Phosphatase 78, Total Protein 6.4, Albumin 2.5 L, Globulin 3.9, Albumin/Globulin Ratio 0.6 L 03/18/20 05:36: Magnesium 2.5, Folate 11.40 03/18/20 05:36: Phosphorus 4.5 03/18/20 12:20: Vitamin B12 Pending 03/18/20 12:20: Ammonia Pending Clinical Impression(s) from Imaging Studies Chest X-Ray 03/09/20 19:35 IMPRESSION: Findings suspicious for evolving inflammatory disease in the lower lobes greater on the left Electronically Signed: Deandre Taylor MD at 20:25 EST , Service support , Chest X-Ray 03/14/20 08:47 IMPRESSION: Similar bilateral prominent interstitial markings with left lower lobe airspace disease concerning for acute infiltrate in the appropriate clinical setting. Electronically Signed: Chandan Rush DO at 10:02 EST , Service support , Brain CT 03/18/20 11:38 IMPRESSION: 1. No acute intracranial hemorrhage or mass effect. 2. Central parenchymal volume loss. White matter changes that are nonspecific but most commonly associated with chronic small vessel ischemic disease. 3. Right middle cranial arachnoid cyst. Inpatient E&M: 08222 Subs Hosp L2
[2020-03-19] MEDS: Carvedilol 3.125 MG TABLET PO ×2 (09:30→22:02)
[2020-03-19] MEDS: Menthol/Lanolin/Calamine/Znox 113 GM Tube 1 APPLIC TOPICAL ×2 (09:30→22:02)
[2020-03-19] MEDS: Furosemide 40 MG Tablet PO (09:31)
[2020-03-19] MEDS: Aspirin E.C. 81 MG Tablet PO (09:31)
[2020-03-19] MEDS: Enoxaparin 30 MG/0.3 ML Syringe SC ×2 (09:31→22:02)
[2020-03-19] MEDS: Levothyroxine 75 MCG Tablet PO (09:32)
[2020-03-19] MEDS: Finasteride 5 MG Tablet PO (09:32)
--- NOTE | 2020-03-19 09:56 | NURSING ---
Patient very confused, mumbling, no coherent thought. Per report, pt had episodes of this yesterday. After being fed part of his tray, he became oriented to person and place and able to put together conversation. Also, began to feed himself. Dr. Gilbert notified of this situation and this RN's concern that his blood sugar might have been low. Lanneri at bedtime dc'd by Dr. Gilbert.
[2020-03-19] MEDS: Insulin Lispro 100 UNIT/ML INSULN.PEN SC ×2 (12:07→22:02)
[2020-03-19 12:15] LABS: Bedside Glucose 246 mg/dL (70-110)
--- NOTE | 2020-03-19 14:50 | NURSING ---
pt sitting up in chair, finished with therapy, BP 82/40. pt asymptomatic, feet raised up while in chair, Dr. Vladimir payne
[2020-03-19 17:06] LABS: Bedside Glucose 138 mg/dL (70-110)
[2020-03-19] MEDS: Atorvastatin Calcium 40 MG Tablet PO (22:02)
[2020-03-19 22:26] LABS: Bedside Glucose 169 mg/dL (70-110)
[2020-03-20] VITALS (15 sets, daily range): BP systolic 100–142; BP diastolic 61–84; PULSE 60–95; RESP 18–20; TEMP 36.4–37.1; O2SAT 86–100
[2020-03-20 05:12] LABS: Absolute Lymphocyte Count 4.06 X10^3/uL (0.83-4.51); Absolute Neutrophil Count 3.7 X10^3/uL (2.0-7.7); Basophil# 0.01 X10^3/uL; Basophil% 0.1 % (0-1); Eosinophil# 0.05 X10^3/uL; Eosinophils% 0.6 % (0-5); Hematocrit 34.4 % (40-54); Hemoglobin 10.8 g/dL (13.0-16.5); Lymphocyte # 4.06 X10^3/ul (4.0); Lymphocyte % 50.1 % (19-41); Mean Corp Hgb Conc 31.4 g/dL (32-36); Mean Corpuscular Hgb 28.6 pg (27.0-32.0); Mean Corpuscular Volume 91.2 fL (80-94); Mean Platelet Vol. 9.2 fl (6.2-12.0); Monocyte# 0.27 X10^3/uL; Monocyte% 3.3 % (0-10); NRBC Flagged by Analyzer 0 % (0-5); Neutrophil # 3.68 X10^3/uL (2.7-7.7); Neutrophil % 45.5 % (47-70); Platelet Count 279 K/mm3 (150-450); RBC Distribution Width CV 13.9 % (11.6-14.6); RBC Distribution Width SD 47.1 fl (35.1-43.9); Red Blood Count 3.77 M/mm3 (4.6-6.2); White Blood Count 8.1 K/mm3 (4.4-11.0)
[2020-03-20 05:40] LABS: Anion Gap 5 (5-15); BUN 40 mg/dL (7-18); BUN/Creat Ratio 38.5 RATIO (10-20); Calcium,Total 8.1 mg/dL (8.5-10.1); Chloride 99 mmol/L (98-107); Creatinine, Serum 1.04 mg/dL (0.70-1.30); EST Glomerular Filtration Rate 73 mL/min (>60); Est Glom Filt Rate - Afr Amer 88 mL/min (>60); Estimated Creatinine Clearance 56.54 ml/min; Glucose 123 mg/dL (74-106); Potassium 4.9 mmol/L (3.5-5.1); Sodium Level 138 mmol/L (136-145)
[2020-03-20 07:56] LABS: Bedside Glucose 102 mg/dL (70-110)
--- NOTE | 2020-03-20 08:00 | PN_ITS ---
Patient Problems: Active and Suspected Problems (Last Reviewed 01/31/20 @ 14:[address] Andres Peres MD) Pneumonia due to COVID-19 virus (Acute) Objective: Patient afebrile. Heart rate and blood pressure in acceptable limit. Patient gets intermittently confused. Pulse ox 95% on 3 to 4 L of oxygen drops in low 70s on walking and patient gets confused. It recovers at rest. Currently 92% on 5 L of oxygen Physical exam General: Mild confusion, orientation x2. HEENT: Atraumatic, PERRLA, EOMI, Normocephalic Oral: No Gingival or Mucosal Lesions/ Ulcerations Neck: Supple, No JVD, Negative Carotid Bruits Lungs: Air entry diminished in bilateral lung bases. Bilateral coarse crepitations and rhonchi. Cardiovascular: Regular rate, Regular Rhythm, Normal S1, Normal S2, No murmurs Abdomen: Bowel Sounds Present, Soft, Non Tender, Non-Distended : No renal angle tenderness. No suprapubic tenderness. Extremities: No edema, Capillary Refill Less than 3 Seconds Skin: No rashes, No breakdown Musculoskeletal: No Tenderness to Palpation of Joints or Extremities Neurological: Cranial nerves II-XII grossly intact, Deep Tendon Reflexes 2+/4 and Symmetrical, Neuro grossly intact Psych/Mental Status: Mild sad Vitals/I&O's: Vital Signs Temp Pulse Resp BP Pulse Ox 98.7 F 72 18 124/68 H 98 03/20/20 03:45 03/20/20 03:45 03/20/20 03:45 03/20/20 03:45 03/20/20 03:48 Oxygen Flow Rate (L/min) 3 Oxygen Delivery Method Nasal Cannula Weight: 184 lb 9.594 oz Body Mass Index (BMI) 26.4 Finger Stick Blood Glucose 123 Intake and Output for Last 24 Hours 03/18/20 03/19/20 03/20/20 23:59 23:59 23:59 Intake Total 360 / 360 1500 / 1600 250 / 250 Output Total 727 / 727 1600 / 2100 1050 / 1050 Balance -367 / -367 -100 / -500 -800 / -800 Laboratory Results 03/19/20 12:06: POC Glucose 246 H 03/19/20 16:56: POC Glucose 138 H 03/19/20 21:47: POC Glucose 169 H 03/20/20 04:54: WBC 8.1, RBC 3.77 L, Hgb 10.8 L, Hct 34.4 L, MCV 91.2, MCH 28.6, MCHC 31.4 L, RDW Std Deviation 47.1 H, RDW Coeff of Lamont 13.9, Plt Count 279, MPV 9.2, Immature Gran % (Auto) 0.400, Neut % (Auto) 45.5 L, Lymph % (Auto) 50.1 H, Rogers % (Auto) 3.3, Eos % (Auto) 0.6, Baso % (Auto) 0.1, Absolute Neuts (auto) 3.7, Absolute Lymphs (auto) 4.06, Nucleated RBC % 0 03/20/20 04:54: Sodium 138, Potassium 4.9, Chloride 99, Carbon Dioxide 34.0 H, Anion Gap 5, BUN 40 H, Creatinine 1.04, Estim Creat Clear Calc 56.54, Est GFR (MDRD) Af Amer 88, Est GFR (MDRD) Non-Af 73, BUN/Creatinine Ratio 38.5 H, Glucose 123 H, Calcium 8.1 L 03/20/20 07:50: POC Glucose 102 Current Medications Acetaminophen (Acetaminophen 325 Mg Tablet) 650 mg PO Q6H PRN PRN PRN Reason: Pain Score 1-10/Temp > 100.7 F Last Admin: 03/18/20 20:53 Dose: 650 mg Documented by: Albuterol Sulfate (Albuterol Ih 8.5 Gm (Proair) Inhaler (200 Puffs)) 2 puff INHALATION Q4H PRN PRN PRN Reason: Shortness of breath, wheezing Last Admin: 03/17/20 20:27 Dose: 2 puff Documented by: Aspirin (Aspirin E.C. 81 Mg Tablet) 81 mg PO DAILY [facility] Last Admin: 03/19/20 09:31 Dose: 81 mg Documented by: Atorvastatin Calcium (Atorvastatin Calcium 40 Mg Tablet) 40 mg PO QHS [facility] Last Admin: 03/19/20 22:02 Dose: 40 mg Documented by: Calamine/Phenol (Menthol/Lanolin/Calamine/Znox 113 Gm Tube) 1 applic TOPICAL BID [facility]; Protocol Last Admin: 03/19/20 22:02 Dose: 1 applicatio Documented by: Carvedilol (Carvedilol 3.125 Mg Tablet) 3.125 mg PO BID [facility] Last Admin: 03/19/20 22:02 Dose: 3.125 mg Documented by: Dextrose (Dextrose 50%-Water 25 Gm/50 Ml Disp.Syrin) 0 gm IV X1 PRN; Protocol PRN Reason: Hypoglycemia Enoxaparin Sodium (Enoxaparin 30 Mg/0.3 Ml Syringe) 30 mg SC BID [facility] Last Admin: 03/19/20 22:02 Dose: 30 mg Documented by: Finasteride (Finasteride 5 Mg Tablet) 5 mg PO DAILY [facility] Last Admin: 03/19/20 09:32 Dose: 5 mg Documented by: Furosemide (Furosemide 40 Mg Tablet) 40 mg PO DAILY [facility] Last Admin: 03/19/20 09:31 Dose: 40 mg Documented by: Glucagon (Glucagon 1 Mg/Ml Syringe) 1 mg IM .X1 PRN PRN Reason: Hypoglycemia Guaifenesin (Guaifenesin 10 Ml Udc (200mg/10ml)) 10 ml PO Q4H PRN PRN PRN Reason: COUGH Last Admin: 03/18/20 20:53 Dose: 10 ml Documented by: Sodium Chloride () 250 mls @ 15 mls/hr IV .[id number] PRN PRN Reason: Saline Flush Insulin Glargine (Insulin Glargine 100 Units/Ml Pen) 10 units SC BREAKFAST [facility] Last Admin: 03/19/20 09:30 Dose: 10 u Documented by: Insulin Human Lispro (Insulin Lispro 100 Unit/Ml Insuln.Pen) 0 unit SC 4X/DAYCM [facility]; Protocol Last Admin: 03/19/20 22:02 Dose: 1 u Documented by: Levothyroxine Sodium (Levothyroxine 75 Mcg Tablet) 75 mcg PO DAILY [facility] Last Admin: 03/19/20 09:32 Dose: 75 mcg Documented by: Ondansetron HCl (Ondansetron 4 Mg/2 Ml Vial) 4 mg IV Q8H PRN PRN PRN Reason: NAUSEA/VOMITING Polyethylene Glycol (Polyethylene Glycol 3350 17 Gm Packet) 17 gm PO DAILY [facility] Last Admin: 03/19/20 09:32 Dose: Not Given Documented by: Senna/Docusate Sodium (Senna/Docusate Sodium 1 Tablet) 2 tablet PO BID PRN PRN PRN Reason: Constipation Sodium Chloride (0.9% Saline Lock 10 Ml Syringe) 10 - 40 ml IV UD PRN PRN Reason: SALINE FLUSH Last Admin: 03/15/20 08:41 Dose: 10 ml Documented by: Zolpidem Tartrate (Zolpidem Tartrate 5 Mg Tablet) 5 mg PO QHS PRN PRN PRN Reason: INSOMNIA Medical Necessity - Tobacco Use Smoking Status: Former smoker Assessment/Plan All Active Problems (Last Reviewed 01/31/20 @ 14:[address] Andres Peres MD) Pneumonia due to COVID-19 virus (Acute) This is an 84 years old male patient came to ED for fever as well as mild chronic cough and he tested positive for COVID-19 antigen, found to have bilateral infiltrates on chest x-ray and he is being admitted for acute COVID-19 pneumonia and hypoxia. 1. Acute COVID 19 pneumonia Patient completed remdesivir on 03/13. Continue Decadron. 2. Acute hypoxic respiratory failure secondary to COVID-19 pneumonia and acute on chronic diastolic heart failure, present on admission: On high flow oxygen. ABG showed 7.44/28/38/57 on 15 L of oxygen suggestive of severe hypoxia with mild metabolic alkalosis. BNP 515. Chest x-ray individually reviewed and shows mild obliteration of left CP angle small bilateral prominent interstitial marking of left lower lobe. On high flow oxygen. Patient on furosemide 40 mg IV twice daily 03/15: Patient on high flow oxygen. Last echo from May 16, 2018 reported as EF 75% with mild concentric LVH. Stage I diastolic dysfunction and EF improved from 50% to 75%. Continue Lasix. Monitor electrolytes, kidney function, adequate intake and output and titrate the dose of Lasix accordingly. 03/16: Patient continues to require high oxygen 50 to 60%. BUN 55, creatinine 1.04. Patient looks well diuresed and Lasix was decreased to 40 mg IV daily yes terday. 03/17: We will continue oxygen treatment. Patient has negative fluid balance about 8.5 L. Continue Decadron and Lasix. Incentive spirometry and pep. 03/18: Continue the same treatment. On Lasix 40 mg daily. 03/20: Continue aggressive incentive spirometry and chest physiotherapy. Negative fluid balance of about 9 L. Continue Lasix 40 mg daily. BUN/creatinine stable. 3. Acute encephalopathy most probably due to hypoglycemia/metabolic encephalopathy with history of possible dementia/cognitive deficit: Patient electrolytes are within normal limit. BUN mildly elevated 49, creatinine normal CT head was done does not show any acute intracranial abnormality but central parenchymal volume loss suggestive of mild dementia. Folic acid normal but B12 1123 elevated high. Serum ammonia level normal. 4. DM type II: Glucose is between 140-190, fairly controlled. 03/14: Glucose fluctuate between 160 to 240 mg/dL. Insulin glargine dose increased to 10 units subcutaneous at breakfast and at night. On sliding scale insulin. 03/15: Glucose is fairly controlled. 03/16: Glucose fluctuates between 123-304. 03/19: Patient had low glucose 86 in the morning. Insulin dose adjusted. Discontinue Lantus at night. 03/20: Glucose is around 200. Lantus increased to 50 mL daily 5. VTE prophylaxis: LMWH, enoxaparin. Advanced care planning:. Patient does not have living status. 03/14: Patient treated that he wants intubation and CPR if needed. Laboratory Results 03/19/20 16:56: POC Glucose 138 H 03/19/20 21:47: POC Glucose 169 H 03/20/20 04:54: WBC 8.1, RBC 3.77 L, Hgb 10.8 L, Hct 34.4 L, MCV 91.2, MCH 28.6, MCHC 31.4 L, RDW Std Deviation 47.1 H, RDW Coeff of Lamont 13.9, Plt Count 279, MPV 9.2, Immature Gran % (Auto) 0.400, Neut % (Auto) 45.5 L, Lymph % (Auto) 50.1 H, Rogers % (Auto) 3.3, Eos % (Auto) 0.6, Baso % (Auto) 0.1, Absolute Neuts (auto) 3.7, Absolute Lymphs (auto) 4.06, Nucleated RBC % 0 03/20/20 04:54: Sodium 138, Potassium 4.9, Chloride 99, Carbon Dioxide 34.0 H, Anion Gap 5, BUN 40 H, Creatinine 1.04, Estim Creat Clear Calc 56.54, Est GFR (MDRD) Af Amer 88, Est GFR (MDRD) Non-Af 73, BUN/Creatinine Ratio 38.5 H, Glucose 123 H, Calcium 8.1 L 03/20/20 07:50: POC Glucose 102 03/20/20 12:12: POC Glucose 224 H Clinical Impression(s) from Imaging Studies Chest X-Ray 03/09/20 19:35 IMPRESSION: Findings suspicious for evolving inflammatory disease in the lower lobes greater on the left Electronically Signed: Deandre Taylor MD at 20:25 EST , Service support , Chest X-Ray 03/14/20 08:47 IMPRESSION: Similar bilateral prominent interstitial markings with left lower lobe airspace disease concerning for acute infiltrate in the appropriate clinical setting. Electronically Signed: Chandan Rush DO at 10:02 EST , Service support , Brain CT 03/18/20 11:38 IMPRESSION: 1. No acute intracranial hemorrhage or mass effect. 2. Central parenchymal volume loss. White matter changes that are nonspecific but most commonly associated with chronic small vessel ischemic disease. 3. Right middle cranial arachnoid cyst. Inpatient E&M: 50949 Subs Hosp L2
[2020-03-20] MEDS: Menthol/Lanolin/Calamine/Znox 113 GM Tube 1 APPLIC TOPICAL ×2 (09:20→21:09)
[2020-03-20] MEDS: Enoxaparin 30 MG/0.3 ML Syringe SC ×2 (09:21→21:10)
[2020-03-20] MEDS: Finasteride 5 MG Tablet PO (09:21)
[2020-03-20] MEDS: Polyethylene Glycol 3350 17 GM PACKET PO (09:21)
[2020-03-20] MEDS: Carvedilol 3.125 MG TABLET PO ×2 (09:21→21:09)
[2020-03-20] MEDS: Furosemide 40 MG Tablet PO (09:21)
[2020-03-20] MEDS: Aspirin E.C. 81 MG Tablet PO (09:21)
[2020-03-20] MEDS: Levothyroxine 75 MCG Tablet PO (09:22)
--- NOTE | 2020-03-20 09:28 | NURSING ---
O2 increased to 5L NC - will monitor
--- NOTE | 2020-03-20 11:39 | NURSING ---
Addendum entered by Jayshree Palumbo 03/20/20 11:56: SHARRON Goldstein RN AWARE, NOT JUAN M Calero RN. APPARENTLY, DR COOPER AND KATERINE HAD ALREADY BEEN MADE AWARE BY THERAPIST Original Note: THERAPY REPORTS THAT PTS POX STARTED AT 95% ON 3L AND PT WAS A&O THIS AM, BUT, WITH JUST GETTING PT UP TO BEDSIDE, HIS POX DROPPED IN THE LOW 70S AND PT APPEARED VERY CONFUSED, POX TOOK SEVERAL MINUTES TO RECOVER WITH O2 INCREASED TO 5L. SAME WITH GETTING PT UP TO CHAIR. SHE REPORTED THAT AFTER HIS POX RECOVERED, PTS MENTATION APPEARED TO RECOVER. DR COOPER AND JUAN M Calero, RN MADE AWARE.
[2020-03-20] MEDS: Insulin Lispro 100 UNIT/ML INSULN.PEN SC (12:26)
[2020-03-20 12:41] LABS: Bedside Glucose 224 mg/dL (70-110)
--- NOTE | 2020-03-20 15:16 | NURSING ---
PT MORE CONFUSED @ THIS TIME. PT STATING I GOT PROBLEMS. NURSE: WHAT KIND OF PROBLEMS?. PT: I CAN'T EAT. IM PEEING ALL THE TIME. PT ATE 100% OF BREAKFAST THIS AM, BUT LITTLE FOR LUNCH. ASKED PT IF I COULD HELP HIM ORDER DINNER, HE STATES NO, IM JUST SCREWED UP HONEY. ASKED PT IF HE WOULD TAKE FLOMAX IF ORDERED TO HELP WITH URINATING, PT STATES NO I WON'T WHEN ASKED WHY PT STATES I DONT KNOW WHY I JUST WON'T. PT O2 SAT ON 5L NC 100% - DECREASED TO 3L NC. WILL MONITOR.
--- NOTE | 2020-03-20 15:46 | NURSING ---
O2 DECREASED TO 3L NC
[2020-03-20 17:06] LABS: Bedside Glucose 138 mg/dL (70-110)
[2020-03-20] MEDS: Atorvastatin Calcium 40 MG Tablet PO (21:09)
[2020-03-20 21:20] LABS: Bedside Glucose 146 mg/dL (70-110)
[2020-03-21] VITALS (7 sets, daily range): BP systolic 106–156; BP diastolic 67–82; PULSE 69–80; RESP 16–20; TEMP 36.8–37; O2SAT 92–98
--- NOTE | 2020-03-21 05:55 | RAD_ITS ---
STUDY: X-RAY CHEST REASON FOR EXAM: Male, 84 years old. COVID, Hypoxia TECHNIQUE: Single AP portable view of the chest. COMPARISON: 03/14/2020 FINDINGS: Increase in alveolar opacity in both lung bases consistent with worsening bibasilar pneumonia. There is no demonstrated pleural abnormality. Normal size heart. Normal mediastinum and shreya. Normal visualized pulmonary arteries. Normal visualized aortic arch and descending thoracic aorta. Normal visualized thoracic spine. Normal visualized ribs, clavicles, and shoulders. There is no demonstrated abnormality of the visualized soft tissue structures of the upper abdomen. RAD/Chest 1 View (Portable) IMPRESSION: Worsening bibasilar pneumonia. Electronically Signed: Jameel Dyson MD at 6:32 EST Tel , Service support ,
[2020-03-21 07:10] LABS: Absolute Neutrophil Count 5.4 X10^3/uL (2.0-7.7); Basophil# 0.01 X10^3/uL; Basophil% 0.1 % (0-1); Eosinophil# 0.07 X10^3/uL; Eosinophils% 0.7 % (0-5); Hematocrit 33.7 % (40-54); Lymphocyte % 43.6 % (19-41); Mean Corp Hgb Conc 32.6 g/dL (32-36); Mean Corpuscular Hgb 29.3 pg (27.0-32.0); Mean Corpuscular Volume 89.9 fL (80-94); Mean Platelet Vol. 9.4 fl (6.2-12.0); Monocyte# 0.32 X10^3/uL; Monocyte% 3.1 % (0-10); NRBC Flagged by Analyzer 0 % (0-5); Neutrophil # 5.39 X10^3/uL (2.7-7.7); Neutrophil % 52.1 % (47-70); Platelet Count 292 K/mm3 (150-450); RBC Distribution Width CV 13.8 % (11.6-14.6); Red Blood Count 3.75 M/mm3 (4.6-6.2); White Blood Count 10.3 K/mm3 (4.4-11.0)
[2020-03-21 07:36] LABS: ALB/GLOB Ratio 0.7 RATIO (0.9-2.4); AST(SGOT) 21 U/L (15-37); Alanine Aminotransfer ALT/SGPT 35 U/L (16-61); Albumin, Serum 2.5 g/dL (3.2-5.0); Alkaline Phosphatase 76 U/L (45-117); Anion Gap 6 (5-15); BUN 40 mg/dL (7-18); BUN/Creat Ratio 40.7 RATIO (10-20); Calcium,Total 8.2 mg/dL (8.5-10.1); Chloride 100 mmol/L (98-107); Creatinine, Serum 0.98 mg/dL (0.70-1.30); EST Glomerular Filtration Rate 78 mL/min (>60); Est Glom Filt Rate - Afr Amer 94 mL/min (>60); Estimated Creatinine Clearance 60.01 ml/min; Globulin 3.7 g/dL (2.2-4.2); Glucose 138 mg/dL (74-106); Protein, Total 6.2 g/dL (6.4-8.2); Sodium Level 137 mmol/L (136-145)
[2020-03-21] MEDS: Menthol/Lanolin/Calamine/Znox 113 GM Tube 1 APPLIC TOPICAL ×2 (07:56→21:38)
[2020-03-21] MEDS: Aspirin E.C. 81 MG Tablet PO (07:56)
[2020-03-21] MEDS: Furosemide 40 MG Tablet PO (07:56)
[2020-03-21] MEDS: Carvedilol 3.125 MG TABLET PO ×2 (07:56→21:38)
[2020-03-21] MEDS: Finasteride 5 MG Tablet PO (07:57)
[2020-03-21] MEDS: Levothyroxine 75 MCG Tablet PO (07:57)
[2020-03-21] MEDS: Enoxaparin 30 MG/0.3 ML Syringe SC ×2 (07:57→21:38)
[2020-03-21] MEDS: Polyethylene Glycol 3350 17 GM PACKET PO (07:57)
--- NOTE | 2020-03-21 08:05 | NURSING ---
PT ASSISTED UP TO CHAIR @ BS X2 ASSIST. PT VERY CONFUSED THIS MORNING. NEEDS MUCH CUEING, DOESN'T SEEM TO KNOW HOW TO USE THE WALKER. WHEN GIVEN AM MEDS, PT COULD NOT RAISE CUP TO MOUTH. WHEN ATTEMPTING TO GIVE PT A DRINK, PT DID NOT UNDERSTAND HOW TO USE THE STRAW. PT MUMBLING, INCOMPREHENSIBLE. PT ORIENTED TO ONLY SELF @ THIS TIME.
[2020-03-21 08:16] LABS: Bedside Glucose 145 mg/dL (70-110)
--- NOTE | 2020-03-21 08:42 | NURSING ---
DR COOPER HERE SEEING PT. MADE MD AWARE OF PT INCREASED CONFUSION THIS MORNING & ALSO PT C/O CONSTANTLY PEEING.
--- NOTE | 2020-03-21 09:13 | PCM.PN.HOSP ---
Patient Problems: Active and Suspected Problems (Last Reviewed 01/31/20 @ 14:[address] Andres Peres MD) Pneumonia due to COVID-19 virus (Acute) Objective: Patient is confused and disoriented. Not able to follow simple instructions. On 3 L of oxygen. Afebrile. Heart rate and blood pressures are controlled As per nursing staff, patient also have continuous dribbling of urine. Physical exam General: Confused, disoriented. Patient does not have good comprehension. HEENT: Atraumatic, PERRLA, EOMI, Normocephalic Oral: No Gingival or Mucosal Lesions/ Ulcerations Neck: Supple, No JVD, Negative Carotid Bruits Lungs: Air entry diminished in bilateral lung bases. Bilateral coarse crepitations Cardiovascular: Regular rate, Regular Rhythm, Normal S1, Normal S2, No murmurs Abdomen: Bowel Sounds Present, Soft, Non Tender, Non-Distended : No renal angle tenderness. No suprapubic tenderness. Extremities: No edema, Capillary Refill Less than 3 Seconds Skin: No rashes, No breakdown Musculoskeletal: No Tenderness to Palpation of Joints or Extremities Neurological: Detailed neuro on unobtainable as patient is confused cranial nerves II-XII grossly intact, Deep Tendon Reflexes 2+/4 Psych/Mental Status: Flat affect. Vitals/I&O's: Vital Signs Temp Pulse Resp BP Pulse Ox 98.2 F 80 20 H 156/82 H 93 03/21/20 07:36 03/21/20 07:36 03/21/20 07:36 03/21/20 07:36 03/21/20 07:36 Oxygen Flow Rate (L/min) 3 Oxygen Delivery Method Nasal Cannula Weight: 184 lb 9.594 oz Body Mass Index (BMI) 26.4 Finger Stick Blood Glucose 123 Intake and Output for Last 24 Hours 03/19/20 03/20/20 03/21/20 23:59 23:59 23:59 Intake Total 1500 / 1600 1050 / 1050 Output Total 1600 / 2100 1735 / 1735 150 / 150 Balance -100 / -500 -685 / -685 -150 / -150 Laboratory Results 03/20/20 12:12: POC Glucose 224 H 03/20/20 16:51: POC Glucose 138 H 03/20/20 21:08: POC Glucose 146 H 03/21/20 06:44: WBC 10.3, RBC 3.75 L, Hgb 11.0 L, Hct 33.7 L, MCV 89.9, MCH 29.3, MCHC 32.6, RDW Std Deviation 45.0 H, RDW Coeff of Lamont 13.8, Plt Count 292, MPV 9.4, Immature Gran % (Auto) 0.400, Neut % (Auto) 52.1, Lymph % (Auto) 43.6 H, [place]cd[place] % (Auto) 3.1, Eos % (Auto) 0.7, Baso % (Auto) 0.1, Absolute Neuts (auto) 5.4, Absolute Lymphs (auto) 4.50, Nucleated RBC % 0 03/21/20 06:44: Sodium 137, Potassium 4.0, Chloride 100, Carbon Dioxide 31.0, Anion Gap 6, BUN 40 H, Creatinine 0.98, Estim Creat Clear Calc 60.01, Est GFR (MDRD) Af Amer 94, Est GFR (MDRD) Non-Af 78, BUN/Creatinine Ratio 40.7 H, Glucose 138 H, Calcium 8.2 L, Total Bilirubin 0.70, AST 21, ALT 35, Alkaline Phosphatase 76, Total Protein 6.2 L, Albumin 2.5 L, Globulin 3.7, Albumin/Globulin Ratio 0.7 L 03/21/20 07:30: POC Glucose 145 H Current Medications Acetaminophen (Acetaminophen 325 Mg Tablet) 650 mg PO Q6H PRN PRN PRN Reason: Pain Score 1-10/Temp > 100.7 F Last Admin: 03/18/20 20:53 Dose: 650 mg Documented by: Albuterol Sulfate (Albuterol Ih 8.5 Gm (Proair) Inhaler (200 Puffs)) 2 puff INHALATION Q4H PRN PRN PRN Reason: Shortness of breath, wheezing Last Admin: 03/17/20 20:27 Dose: 2 puff Documented by: Aspirin (Aspirin E.C. 81 Mg Tablet) 81 mg PO DAILY [facility] Last Admin: 03/21/20 07:56 Dose: 81 mg Documented by: Atorvastatin Calcium (Atorvastatin Calcium 40 Mg Tablet) 40 mg PO QHS [facility] Last Admin: 03/20/20 21:09 Dose: 40 mg Documented by: Calamine/Phenol (Menthol/Lanolin/Calamine/Znox 113 Gm Tube) 1 applic TOPICAL BID [facility]; Protocol Last Admin: 03/21/20 07:56 Dose: 1 applicatio Documented by: Carvedilol (Carvedilol 3.125 Mg Tablet) 3.125 mg PO BID [facility] Last Admin: 03/21/20 07:56 Dose: 3.125 mg Documented by: Dextrose (Dextrose 50%-Water 25 Gm/50 Ml Disp.Syrin) 0 gm IV X1 PRN; Protocol PRN Reason: Hypoglycemia Enoxaparin Sodium (Enoxaparin 30 Mg/0.3 Ml Syringe) 30 mg SC BID [facility] Last Admin: 03/21/20 07:57 Dose: 30 mg Documented by: Finasteride (Finasteride 5 Mg Tablet) 5 mg PO DAILY [facility] Last Admin: 03/21/20 07:57 Dose: 5 mg Documented by: Furosemide (Furosemide 40 Mg Tablet) 40 mg PO DAILY [facility] Last Admin: 03/21/20 07:56 Dose: 40 mg Documented by: Glucagon (Glucagon 1 Mg/Ml Syringe) 1 mg IM .X1 PRN PRN Reason: Hypoglycemia Guaifenesin (Guaifenesin 10 Ml Udc (200mg/10ml)) 10 ml PO Q4H PRN PRN PRN Reason: COUGH Last Admin: 03/18/20 20:53 Dose: 10 ml Documented by: Sodium Chloride () 250 mls @ 15 mls/hr IV .[id number] PRN PRN Reason: Saline Flush Insulin Glargine (Insulin Glargine 100 Units/Ml Pen) 15 units SC BREAKFAST [facility] Last Admin: 03/21/20 08:46 Dose: 15 units Documented by: Insulin Human Lispro (Insulin Lispro 100 Unit/Ml Insuln.Pen) 0 unit SC 4X/DAYCM [facility]; Protocol Last Admin: 03/21/20 08:46 Dose: Not Given Documented by: Levothyroxine Sodium (Levothyroxine 75 Mcg Tablet) 75 mcg PO DAILY [facility] Last Admin: 03/21/20 07:57 Dose: 75 mcg Documented by: Ondansetron HCl (Ondansetron 4 Mg/2 Ml Vial) 4 mg IV Q8H PRN PRN PRN Reason: NAUSEA/VOMITING Polyethylene Glycol (Polyethylene Glycol 3350 17 Gm Packet) 17 gm PO DAILY [facility] Last Admin: 03/21/20 07:57 Dose: 17 gm Documented by: Quetiapine Fumarate (Quetiapine 25 Mg Tablet) 50 mg PO BID [facility] Senna/Docusate Sodium (Senna/Docusate Sodium 1 Tablet) 2 tablet PO BID PRN PRN PRN Reason: Constipation Sodium Chloride (0.9% Saline Lock 10 Ml Syringe) 10 - 40 ml IV UD PRN PRN Reason: SALINE FLUSH Last Admin: 03/15/20 08:41 Dose: 10 ml Documented by: Zolpidem Tartrate (Zolpidem Tartrate 5 Mg Tablet) 5 mg PO QHS PRN PRN PRN Reason: INSOMNIA STROKE Vital Signs/Narrative: Vital Signs Temp Pulse Resp BP Pulse Ox 03/21/20 07:36 98.2 F 80 20 H 156/82 H 93 Medical Necessity - Tobacco Use Smoking Status: Former smoker Assessment/Plan All Active Problems (Last Reviewed 01/31/20 @ 14:[address] Andres Peres MD) Pneumonia due to COVID-19 virus (Acute) This is an 84 years old male patient came to ED for fever as well as mild chronic cough and he tested positive for COVID-19 antigen, found to have bilateral infiltrates on chest x-ray and he is being admitted for acute COVID-19 pneumonia and hypoxia. 1. Acute COVID 19 pneumonia Patient completed remdesivir on 03/13. Continue Decadron. 2. Acute hypoxic respiratory failure secondary to COVID-19 pneumonia and acute on chronic diastolic heart failure, present on admission: On high flow oxygen. ABG showed 7.44/28/38/57 on 15 L of oxygen suggestive of severe hypoxia with mild metabolic alkalosis. BNP 515. Chest x-ray individually reviewed and shows mild obliteration of left CP angle small bilateral prominent interstitial marking of left lower lobe. On high flow oxygen. Patient on furosemide 40 mg IV twice daily 03/15: Patient on high flow oxygen. Last echo from May 16, 2018 reported as EF 75% with mild concentric LVH. Stage I diastolic dysfunction and EF improved from 50% to 75%. Continue Lasix. Monitor electrolytes, kidney function, adequate intake and output and titrate the dose of Lasix accordingly. 03/16: Patient continues to require high oxygen 50 to 60%. BUN 55, creatinine 1.04. Patient looks well diuresed and Lasix was decreased to 40 mg IV daily yesterday. 03/17: We will continue oxygen treatment. Patient has negative fluid balance about 8.5 L. Continue Decadron and Lasix. Incentive spirometry and pep. 03/18: Continue the same treatment. On Lasix 40 mg daily. 03/20: Continue aggressive incentive spirometry and chest physiotherapy. Negative fluid balance of about 9 L. Continue Lasix 40 mg daily. BUN/creatinine stable. 03/21: Oxygen requirement has come down. BUN and creatinine are are acceptable. 3. Acute encephalopathy most probably due to hypoglycemia/metabolic encephalopathy with history of possible dementia/cognitive deficit: Patient electrolytes are within normal limit. BUN mildly elevated 49, creatinine normal CT head was done does not show any acute intracranial abnormality but central parenchymal volume loss suggestive of mild dementia. Folic acid normal but B12, 1123 elevated high. Serum ammonia level normal. 03/21: Started on Seroquel 50 mg twice daily. 4. DM type II: Glucose is between 140-190, fairly controlled. 03/14: Glucose fluctuate between 160 to 240 mg/dL. Insulin glargine dose increased to 10 units subcutaneous at breakfast and at night. On sliding scale insulin. 03/15: Glucose is fairly controlled. 03/16: Glucose fluctuates between 123-304. 03/19: Patient had low glucose 86 in the morning. Insulin dose adjusted. Discontinue Lantus at night. 03/20: Glucose is around 200. Lantus increased to 50 mL daily 03/21: Glucose is controlled in acceptable limit. 5. Urinary incontinence probably BPH: Started on Flomax. VTE prophylaxis: LMWH, enoxaparin. Advanced care planning:. Patient does not have living status. 03/14: Patient treated that he wants intubation and CPR if needed. Laboratory Results 03/20/20 16:51: POC Glucose 138 H 03/20/20 21:08: POC Glucose 146 H 03/21/20 06:44: WBC 10.3, RBC 3.75 L, Hgb 11.0 L, Hct 33.7 L, MCV 89.9, MCH 29.3, MCHC 32.6, RDW Std Deviation 45.0 H, RDW Coeff of Lamont 13.8, Plt Count 292, MPV 9.4, Immature Gran % (Auto) 0.400, Neut % (Auto) 52.1, Lymph % (Auto) 43.6 H, [place] % (Auto) 3.1, Eos % (Auto) 0.7, Baso % (Auto) 0.1, Absolute Neuts (auto) 5.4, Absolute Lymphs (auto) 4.50, Nucleated RBC % 0 03/21/20 06:44: Sodium 137, Potassium 4.0, Chloride 100, Carbon Dioxide 31.0, Anion Gap 6, BUN 40 H, Creatinine 0.98, Estim Creat Clear Calc 60.01, Est GFR (MDRD) Af Amer 94, Est GFR (MDRD) Non-Af 78, BUN/Creatinine Ratio 40.7 H, Glucose 138 H, Calcium 8.2 L, Total Bilirubin 0.70, AST 21, ALT 35, Alkaline Phosphatase 76, Total Protein 6.2 L, Albumin 2.5 L, Globulin 3.7, Albumin/Globulin Ratio 0.7 L 03/21/20 07:30: POC Glucose 145 H 03/21/20 11:39: POC Glucose 192 H Laboratory Results 03/19/20 16:56: POC Glucose 138 H 03/19/20 21:47: POC Glucose 169 H 03/20/20 04:54: WBC 8.1, RBC 3.77 L, Hgb 10.8 L, Hct 34.4 L, MCV 91.2, MCH 28.6, MCHC 31.4 L, RDW Std Deviation 47.1 H, RDW Coeff of Lamont 13.9, Plt Count 279, MPV 9.2, Immature Gran % (Auto) 0.400, Neut % (Auto) 45.5 L, Lymph % (Auto) 50.1 H, [place] % (Auto) 3.3, Eos % (Auto) 0.6, Baso % (Auto) 0.1, Absolute Neuts (auto) 3.7, Absolute Lymphs (auto) 4.06, Nucleated RBC % 0 03/20/20 04:54: Sodium 138, Potassium 4.9, Chloride 99, Carbon Dioxide 34.0 H, Anion Gap 5, BUN 40 H, Creatinine 1.04, Estim Creat Clear Calc 56.54, Est GFR (MDRD) Af Amer 88, Est GFR (MDRD) Non-Af 73, BUN/Creatinine Ratio 38.5 H, Glucose 123 H, Calcium 8.1 L 03/20/20 07:50: POC Glucose 102 03/20/20 12:12: POC Glucose 224 H Clinical Impression(s) from Imaging Studies Chest X-Ray 03/09/20 19:35 IMPRESSION: Findings suspicious for evolving inflammatory disease in the lower lobes greater on the left Electronically Signed: Deandre Taylor MD at 20:25 EST , Service support , Chest X-Ray 03/14/20 08:47 IMPRESSION: Similar bilateral prominent interstitial markings with left lower lobe airspace disease concerning for acute infiltrate in the appropriate clinical setting. Electronically Signed: Chandan Rush DO at 10:02 EST , Service support , Brain CT 03/18/20 11:38 IMPRESSION: 1. No acute intracranial hemorrhage or mass effect. 2. Central parenchymal volume loss. White matter changes that are nonspecific but most commonly associated with chronic small vessel ischemic disease. 3. Right middle cranial arachnoid cyst. Inpatient E&M: 88952 Subs Hosp L2
[2020-03-21] MEDS: QUEtiapine 25 MG Tablet 50 MG PO ×2 (09:47→21:38)
[2020-03-21 11:51] LABS: Bedside Glucose 192 mg/dL (70-110)
--- NOTE | 2020-03-21 11:57 | NURSING ---
PT HAS BEEN REFUSING TO USE I.S. BUT WILL DO PEP THERAPY
[2020-03-21] MEDS: Insulin Lispro 100 UNIT/ML INSULN.PEN SC ×3 (12:23→21:43)
--- NOTE | 2020-03-21 14:59 | NURSING ---
O2 DECREASED TO 2L NC - WILL MONITOR
--- NOTE | 2020-03-21 16:49 | NURSING ---
O2 DECREASED TO 1L NC - WILL MONITOR
[2020-03-21] MEDS: Tamsulosin HCl 0.4 MG Capsule PO (16:50)
[2020-03-21 17:00] LABS: Bedside Glucose 162 mg/dL (70-110)
[2020-03-21] MEDS: Atorvastatin Calcium 40 MG Tablet PO (21:38)
[2020-03-21 22:46] LABS: Bedside Glucose 205 mg/dL (70-110)
[2020-03-22 04:52] VITALS: BP 118/68; PULSE 64; RESP 18; TEMP 36.5; O2SAT 93
[2020-03-22] MEDS: Menthol/Lanolin/Calamine/Znox 113 GM Tube 1 APPLIC TOPICAL ×2 (07:59→22:23)
[2020-03-22] MEDS: Furosemide 40 MG Tablet PO (08:04)
[2020-03-22] MEDS: Polyethylene Glycol 3350 17 GM PACKET PO (08:04)
[2020-03-22] MEDS: Carvedilol 3.125 MG TABLET PO ×2 (08:04→22:23)
[2020-03-22] MEDS: Finasteride 5 MG Tablet PO (08:04)
[2020-03-22] MEDS: Enoxaparin 30 MG/0.3 ML Syringe SC ×2 (08:05→22:23)
[2020-03-22] MEDS: QUEtiapine 25 MG Tablet 50 MG PO (08:05)
[2020-03-22] MEDS: Aspirin E.C. 81 MG Tablet PO (08:05)
[2020-03-22 08:07] VITALS: BP 121/73; PULSE 67; RESP 18; TEMP 36.2; O2SAT 92
[2020-03-22] MEDS: Levothyroxine 75 MCG Tablet PO (08:09)
[2020-03-22 08:40] LABS: Bedside Glucose 135 mg/dL (70-110)
[2020-03-22 11:42] VITALS: O2SAT 95
--- NOTE | 2020-03-22 11:46 | PN_ITS ---
Patient Problems: Active and Suspected Problems (Last Reviewed 01/31/20 @ 14:[address] Andres Peres MD) Pneumonia due to COVID-19 virus (Acute) Reason for Visit: Follow-up for COVID-19 pneumonia with acute hypoxic respiratory failure Objective: Patient is still confused and disoriented but is more awake and alert than yesterday. On Seroquel 50 mg twice daily. Afebrile. Pulse ox 95% on 1 L of oxygen. Blood pressure in normal range Physical therapy: General: Confused and disoriented but awake. Follows simple commands. HEENT: Atraumatic, PERRLA, EOMI, Normocephalic Oral: No Gingival or Mucosal Lesions/ Ulcerations Neck: Supple, No JVD, Negative Carotid Bruits Lungs: Air entry diminished in bilateral lung bases. No crepitation/rhonchi Cardiovascular: Regular rate, Regular Rhythm, Normal S1, Normal S2, No murmurs Abdomen: Bowel Sounds Present, Soft, Non Tender, Non-Distended : No renal angle tenderness. No suprapubic tenderness. Extremities: No edema, Capillary Refill Less than 3 Seconds Skin: No rashes, No breakdown Musculoskeletal: No Tenderness to Palpation of Joints or Extremities Neurological: Cranial nerves II-XII grossly intact, Deep Tendon Reflexes 2+/4 and Symmetrical, Neuro grossly intact Psych/Mental Status: Flat affect. Vitals/I&O's: Vital Signs Temp Pulse Resp BP Pulse Ox 97.2 F L 67 18 121/73 H 95 03/22/20 08:07 03/22/20 08:07 03/22/20 08:07 03/22/20 08:07 03/22/20 11:42 Oxygen Flow Rate (L/min) 1 Oxygen Delivery Method Nasal Cannula Weight: 184 lb 9.594 oz Body Mass Index (BMI) 26.4 Finger Stick Blood Glucose 123 Intake and Output for Last 24 Hours 03/20/20 03/21/20 03/22/20 23:59 23:59 23:59 Intake Total 1050 / 1050 840 / 840 Output Total 1735 / 1735 750 / 750 400 / 400 Balance -685 / -685 90 / 90 -400 / -400 Laboratory Results 03/21/20 11:39: POC Glucose 192 H 03/21/20 16:44: POC Glucose 162 H 03/21/20 21:41: POC Glucose 205 H 03/22/20 07:58: POC Glucose 135 H Current Medications Acetaminophen (Acetaminophen 325 Mg Tablet) 650 mg PO Q6H PRN PRN PRN Reason: Pain Score 1-10/Temp > 100.7 F Last Admin: 03/18/20 20:53 Dose: 650 mg Documented by: Albuterol Sulfate (Albuterol Ih 8.5 Gm (Proair) Inhaler (200 Puffs)) 2 puff INHALATION Q4H PRN PRN PRN Reason: Shortness of breath, wheezing Last Admin: 03/17/20 20:27 Dose: 2 puff Documented by: Aspirin (Aspirin E.C. 81 Mg Tablet) 81 mg PO DAILY [facility] Last Admin: 03/22/20 08:05 Dose: 81 mg Documented by: Atorvastatin Calcium (Atorvastatin Calcium 40 Mg Tablet) 40 mg PO QHS [facility] Last Admin: 03/21/20 21:38 Dose: 40 mg Documented by: Calamine/Phenol (Menthol/Lanolin/Calamine/Znox 113 Gm Tube) 1 applic TOPICAL BID [facility]; Protocol Last Admin: 03/22/20 07:59 Dose: 1 applicatio Documented by: Carvedilol (Carvedilol 3.125 Mg Tablet) 3.125 mg PO BID [facility] Last Admin: 03/22/20 08:04 Dose: 3.125 mg Documented by: Dextrose (Dextrose 50%-Water 25 Gm/50 Ml Disp.Syrin) 0 gm IV X1 PRN; Protocol PRN Reason: Hypoglycemia Enoxaparin Sodium (Enoxaparin 30 Mg/0.3 Ml Syringe) 30 mg SC BID [facility] Last Admin: 03/22/20 08:05 Dose: 30 mg Documented by: Finasteride (Finasteride 5 Mg Tablet) 5 mg PO DAILY [facility] Last Admin: 03/22/20 08:04 Dose: 5 mg Documented by: Furosemide (Furosemide 40 Mg Tablet) 40 mg PO DAILY [facility] Last Admin: 03/22/20 08:04 Dose: 40 mg Documented by: Glucagon (Glucagon 1 Mg/Ml Syringe) 1 mg IM .X1 PRN PRN Reason: Hypoglycemia Guaifenesin (Guaifenesin 10 Ml Udc (200mg/10ml)) 10 ml PO Q4H PRN PRN PRN Reason: COUGH Last Admin: 03/18/20 20:53 Dose: 10 ml Documented by: Sodium Chloride () 250 mls @ 15 mls/hr IV .[id number] PRN PRN Reason: Saline Flush Insulin Glargine (Insulin Glargine 100 Units/Ml Pen) 15 units SC BREAKFAST [facility] Last Admin: 03/22/20 08:00 Dose: 15 units Documented by: Insulin Human Lispro (Insulin Lispro 100 Unit/Ml Insuln.Pen) 0 unit SC 4X/DAYCM [facility]; Protocol Last Admin: 03/22/20 07:59 Dose: Not Given Documented by: Levothyroxine Sodium (Levothyroxine 75 Mcg Tablet) 75 mcg PO DAILY [facility] Last Admin: 03/22/20 08:09 Dose: 75 mcg Documented by: Ondansetron HCl (Ondansetron 4 Mg/2 Ml Vial) 4 mg IV Q8H PRN PRN PRN Reason: NAUSEA/VOMITING Polyethylene Glycol (Polyethylene Glycol 3350 17 Gm Packet) 17 gm PO DAILY [facility] Last Admin: 03/22/20 08:04 Dose: 17 gm Documented by: Quetiapine Fumarate (Quetiapine 25 Mg Tablet) 50 mg PO BID [facility] Last Admin: 03/22/20 08:05 Dose: 50 mg Documented by: Senna/Docusate Sodium (Senna/Docusate Sodium 1 Tablet) 2 tablet PO BID PRN PRN PRN Reason: Constipation Sodium Chloride (0.9% Saline Lock 10 Ml Syringe) 10 - 40 ml IV UD PRN PRN Reason: SALINE FLUSH Last Admin: 03/15/20 08:41 Dose: 10 ml Documented by: Tamsulosin HCl (Tamsulosin Hcl 0.4 Mg Capsule) 0.4 mg PO DAILY@1730 [facility] Last Admin: 03/21/20 16:50 Dose: 0.4 mg Documented by: Zolpidem Tartrate (Zolpidem Tartrate 5 Mg Tablet) 5 mg PO QHS PRN PRN PRN Reason: INSOMNIA STROKE Vital Signs/Narrative: Vital Signs Temp Pulse Resp BP Pulse Ox 03/22/20 11:42 95 03/22/20 08:07 97.2 F L 67 18 121/73 H 92 Medical Necessity - Tobacco Use Smoking Status: Former smoker Assessment/Plan All Active Problems (Last Reviewed 01/31/20 @ 14:[address] Andres Peres MD) Pneumonia due to COVID-19 virus (Acute) This is an 84 years old male patient came to ED for fever as well as mild chronic cough and he tested positive for COVID-19 antigen, found to have bilateral infiltrates on chest x-ray and he is being admitted for acute COVID-19 pneumonia and hypoxia. 1. Acute COVID 19 pneumonia Patient completed remdesivir on 03/13. Continue Decadron. 2. Acute hypoxic respiratory failure secondary to COVID-19 pneumonia and acute on chronic diastolic heart failure, present on admission: On high flow oxygen. ABG showed 7.44/28/38/57 on 15 L of oxygen suggestive of severe hypoxia with mild metabolic alkalosis. BNP 515. Chest x-ray individually reviewed and shows mild obliteration of left CP angle small bilateral prominent interstitial marking of left lower lobe. On high flow oxygen. Patient on furosemide 40 mg IV twice daily 03/15: Patient on high flow oxygen. Last echo from May 16, 2018 reported as EF 75% with mild concentric LVH. Stage I diastolic dysfunction and EF improved from 50% to 75%. Continue Lasix. Monitor electrolytes, kidney function, adequate intake and output and titrate the dose of Lasix accordingly. 03/16: Patient continues to require high oxygen 50 to 60%. BUN 55, creatinine 1.04. Patient looks well diuresed and Lasix was decreased to 40 mg IV daily yesterday. 03/17: We will continue oxygen treatment. Patient has negative fluid balance about 8.5 L. Continue Decadron and Lasix. Incentive spirometry and pep. 03/18: Continue the same treatment. On Lasix 40 mg daily. 03/20: Continue aggressive incentive spirometry and chest physiotherapy. Negative fluid balance of about 9 L. Continue Lasix 40 mg daily. BUN/creatinine stable. 1/2: Oxygen requirement has come down. BUN and creatinine are are acceptable. 03/22: Changes on 1 L of oxygen pulse ox 95%. Continue PT and OT and possible SNF placement. 3. Acute encephalopathy most probably due to hypoglycemia/metabolic encephalopathy with history of possible dementia/cognitive deficit: Patient electrolytes are within normal limit. BUN mildly elevated 49, creatinine normal CT head was done does not show any acute intracranial abnormality but central parenchymal volume loss suggestive of mild dementia. Folic acid normal but B12, 1123 elevated high. Serum ammonia level normal. 1/2: Started on Seroquel 50 mg twice daily. 03/22: Patient to depression is better. Follows simple command and easily directable. 4. DM type II: Glucose is between 140-190, fairly controlled. 03/14: Glucose fluctuate between 160 to 240 mg/dL. Insulin glargine dose increased to 10 units subcutaneous at breakfast and at night. On sliding scale insulin. 03/15: Glucose is fairly controlled. 03/16: Glucose fluctuates between 123-304. 03/19: Patient had low glucose 86 in the morning. Insulin dose adjusted. Discontinue Lantus at night. 03/20: Glucose is around 200. Lantus increased to 50 mL daily 03/21: Glucose is controlled in acceptable limit. 5. Urinary incontinence probably BPH: Started on Flomax. VTE prophylaxis: LMWH, enoxaparin. Advanced care planning:. Patient does not have living status. 03/14: Patient treated that he wants intubation and CPR if needed. Discharge plan: Continue PT and OT. Patient is ready for discharge, will need SNF placement Laboratory Results 03/20/20 16:51: POC Glucose 138 H 03/20/20 21:08: POC Glucose 146 H 03/21/20 06:44: WBC 10.3, RBC 3.75 L, Hgb 11.0 L, Hct 33.7 L, MCV 89.9, MCH 29.3 , MCHC 32.6, RDW Std Deviation 45.0 H, RDW Coeff of Lamont 13.8, Plt Count 292, MPV 9.4, Immature Gran % (Auto) 0.400, Neut % (Auto) 52.1, Lymph % (Auto) 43.6 H, [place] % (Auto) 3.1, Eos % (Auto) 0.7, Baso % (Auto) 0.1, Absolute Neuts (auto) 5.4, Absolute Lymphs (auto) 4.50, Nucleated RBC % 0 03/21/20 06:44: Sodium 137, Potassium 4.0, Chloride 100, Carbon Dioxide 31.0, Anion Gap 6, BUN 40 H, Creatinine 0.98, Estim Creat Clear Calc 60.01, Est GFR (MDRD) Af Amer 94, Est GFR (MDRD) Non-Af 78, BUN/Creatinine Ratio 40.7 H, Glucose 138 H, Calcium 8.2 L, Total Bilirubin 0.70, AST 21, ALT 35, Alkaline Phosphatase 76, Total Protein 6.2 L, Albumin 2.5 L, Globulin 3.7, Albumin/Globulin Ratio 0.7 L 03/21/20 07:30: POC Glucose 145 H 03/21/20 11:39: POC Glucose 192 H Laboratory Results 03/19/20 16:56: POC Glucose 138 H 03/19/20 21:47: POC Glucose 169 H 03/20/20 04:54: WBC 8.1, RBC 3.77 L, Hgb 10.8 L, Hct 34.4 L, MCV 91.2, MCH 28.6, MCHC 31.4 L, RDW Std Deviation 47.1 H, RDW Coeff of Lamont 13.9, Plt Count 279, MPV 9.2, Immature Gran % (Auto) 0.400, Neut % (Auto) 45.5 L, Lymph % (Auto) 50.1 H, [place] % (Auto) 3.3, Eos % (Auto) 0.6, Baso % (Auto) 0.1, Absolute Neuts (auto) 3.7, Absolute Lymphs (auto) 4.06, Nucleated RBC % 0 03/20/20 04:54: Sodium 138, Potassium 4.9, Chloride 99, Carbon Dioxide 34.0 H, Anion Gap 5, BUN 40 H, Creatinine 1.04, Estim Creat Clear Calc 56.54, Est GFR (MDRD) Af Amer 88, Est GFR (MDRD) Non-Af 73, BUN/Creatinine Ratio 38.5 H, Glucose 123 H, Calcium 8.1 L 03/20/20 07:50: POC Glucose 102 03/20/20 12:12: POC Glucose 224 H Clinical Impression(s) from Imaging Studies Chest X-Ray 03/09/20 19:35 IMPRESSION: Findings suspicious for evolving inflammatory disease in the lower lobes greater on the left Electronically Signed: Deandre Taylor MD at 20:25 EST , Service support , Chest X-Ray 03/14/20 08:47 IMPRESSION: Similar bilateral prominent interstitial markings with left lower lobe airspace disease concerning for acute infiltrate in the appropriate clinical setting. Electronically Signed: Chandan Rush DO at 10:02 EST , Service support , Brain CT 03/18/20 11:38 IMPRESSION: 1. No acute intracranial hemorrhage or mass effect. 2. Central parenchymal volume loss. White matter changes that are nonspecific but most commonly associated with chronic small vessel ischemic disease. 3. Right middle cranial arachnoid cyst. Inpatient E&M: 25793 Subs Hosp L2
[2020-03-22] MEDS: Insulin Lispro 100 UNIT/ML INSULN.PEN SC ×2 (11:51→22:23)
[2020-03-22 12:05] LABS: Bedside Glucose 207 mg/dL (70-110)
[2020-03-22 15:56] VITALS: BP 132/79; PULSE 64; RESP 16; TEMP 36.7; O2SAT 99
[2020-03-22] MEDS: Tamsulosin HCl 0.4 MG Capsule PO (16:03)
[2020-03-22 17:00] LABS: Bedside Glucose 133 mg/dL (70-110)
[2020-03-22 21:41] LABS: Bedside Glucose 168 mg/dL (70-110)
[2020-03-22] MEDS: Atorvastatin Calcium 40 MG Tablet PO (22:23)
[2020-03-22] MEDS: QUEtiapine 25 MG Tablet PO (22:23)
[2020-03-22 22:26] VITALS: BP 124/56; PULSE 79; RESP 18; TEMP 36.7; O2SAT 95
[2020-03-23 06:16] LABS: Absolute Lymphocyte Count 2.89 X10^3/uL (0.83-4.51); Absolute Neutrophil Count 3.5 X10^3/uL (2.0-7.7); Basophil# 0.01 X10^3/uL; Basophil% 0.1 % (0-1); Eosinophil# 0.06 X10^3/uL; Eosinophils% 0.9 % (0-5); Hematocrit 33.5 % (40-54); Hemoglobin 10.6 g/dL (13.0-16.5); Lymphocyte # 2.89 X10^3/ul (4.0); Mean Corp Hgb Conc 31.6 g/dL (32-36); Mean Corpuscular Volume 91.5 fL (80-94); Mean Platelet Vol. 9.4 fl (6.2-12.0); Monocyte# 0.28 X10^3/uL; Monocyte% 4.2 % (0-10); NRBC Flagged by Analyzer 0 % (0-5); Neutrophil # 3.45 X10^3/uL (2.7-7.7); Neutrophil % 51.4 % (47-70); Platelet Count 235 K/mm3 (150-450); RBC Distribution Width CV 13.7 % (11.6-14.6); RBC Distribution Width SD 46.2 fl (35.1-43.9); Red Blood Count 3.66 M/mm3 (4.6-6.2); White Blood Count 6.7 K/mm3 (4.4-11.0)
[2020-03-23 06:47] VITALS: BP 127/73; PULSE 64; RESP 20; TEMP 36.6; O2SAT 93
[2020-03-23 08:28] VITALS: BP 122/70; PULSE 61; RESP 16; TEMP 37.1; O2SAT 94
[2020-03-23] MEDS: Menthol/Lanolin/Calamine/Znox 113 GM Tube 1 APPLIC TOPICAL ×2 (08:37→21:11)
[2020-03-23] MEDS: Carvedilol 3.125 MG TABLET PO ×2 (08:38→21:12)
[2020-03-23] MEDS: Furosemide 40 MG Tablet PO (08:39)
[2020-03-23] MEDS: Enoxaparin 30 MG/0.3 ML Syringe SC ×2 (08:39→21:12)
[2020-03-23] MEDS: Aspirin E.C. 81 MG Tablet PO (08:39)
[2020-03-23] MEDS: Levothyroxine 75 MCG Tablet PO (08:40)
[2020-03-23] MEDS: Finasteride 5 MG Tablet PO (08:40)
[2020-03-23] MEDS: QUEtiapine 25 MG Tablet PO ×2 (08:40→21:12)
[2020-03-23 08:51] LABS: Bedside Glucose 135 mg/dL (70-110)
--- NOTE | 2020-03-23 11:10 | CASEMGMT ---
Social Work Note SW updated that SNF is being recommended. Per PT/OT pt was mod assist of 2 yesterday and walked 30ft. Pt had poor safety awareness and was unsteady with ambulation. SW attempted to call pt to discuss discharge plans, no answer. SW will try again as time permits today to call pt. Plan: TBD, SNF being recommended Deirdre Palmer STUNT PERSON, RADIOACTIVITY TECHNICIAN
[2020-03-23 12:26] LABS: Bedside Glucose 148 mg/dL (70-110)
--- NOTE | 2020-03-23 12:27 | TREXTCAR_ITS ---
- Diet 03/12/20 11:30 Diet: Regular - General Food consistency:: Regular Liquid Consistency:: Regular/Thin Dietary Modifications:: Consistent Carbohydrate Type of Dietary Supplement:: Glucerna Shake Is pt able to select menu?: Yes Diet Comments: 8 oz BID w/ meals - Routine Orders/Code Status O2 Liters per Minute: 2 O2 Frequency: Continuous Keep PO Greater than or Equal to (%): 92 Code Status: Full Code - Wound(s) rt wrist Wound Type: Laceration - Suggestions for Active Care Change Position every (hours): 3 Hours to sit in a chair: 2 Times a day to sit in chair: 3 - Therapies Weight Bearing: Weight bearing as tolerated Physical Therapy: Eval and Treat Occupational Therapy: Eval and Treat - Problem/Diagnosis (1) Pneumonia due to COVID-19 virus Status: Acute (2) Stented coronary artery Status: Chronic Comment: 02/22/2016 Acute Anterior STEMI; PTCA and ANDRY X2 to proximal and mid LAD, POBA of ostium of dx (3) Atherosclerotic heart disease of [place] coronary artery without angina pectoris Status: Chronic Comment: 02/22/2016 Acute lateral STEMI; PTCA and ANDRY X2 to proximal and mid LAD, POBA of ostium of dx (4) Hyperlipidemia Status: Chronic (5) Hypertension Status: Chronic (6) Type 2 diabetes mellitus Status: Chronic - Allergies/Procedures Done in Hospital Allergies/Adverse Reactions: Allergies Penicillins Allergy (Verified 03/09/20 18:40) Hives tree and shrub pollen Allergy (Verified 03/09/20 18:40) Other lisinopril Adverse Reaction (Mild, Verified 03/09/20 18:40) cough - Type of Care/Length of Stay Estimated LOS: Convalescent Care Less Than 30 days Type of Care Needed: Skilled Rehab Potential: Fair Prognosis: Fair - Additional Orders/Day of Discharge Additional Orders: Continue isolation precautions for COVID-19 for 4 days more to complete total of 20 days of from onset of symptoms. H&P will serve as current which was dated: 03/09/20 Day of Discharge: 03/23/20 - Dietary and Speech Recommendations Dietitian Recommendations/Changes: Carb-controlled diet w/ 240 glucerna shake BID. - Follow Up Care Primary Care Physician: Wagner Gr MD [Primary Care Provider] - Please follow up with your Primary Care Physician in: 1 week.
--- NOTE | 2020-03-23 12:40 | PCM.PROGNOTE ---
Patient Problems: Active and Suspected Problems (Last Reviewed 01/31/20 @ 14:[address] Andres Peres MD) Pneumonia due to COVID-19 virus (Acute) Subjective: Chief complaint: Follow-up after admission for acute bilateral COVID-19 pneumonia, hypoxia, pancytopenia and RACHEL on CKD. Patient seen and examined. Today, he is alert and oriented x3. He knew his full name, date of , location and he knew was that it is the new year. He mentioned that his breathing is okay. Remains on 2 L of oxygen. Other vital signs are stable. - Physical Exam Vitals/I&O's: Vital Signs Temp Pulse Resp BP Pulse Ox 98.7 F 61 16 122/70 H 94 03/23/20 08:28 03/23/20 08:28 03/23/20 08:28 03/23/20 08:28 03/23/20 08:28 Oxygen Flow Rate (L/min) 2 Oxygen Delivery Method Nasal Cannula Weight: 184 lb 9.594 oz Body Mass Index (BMI) 26.4 Finger Stick Blood Glucose 123 Intake and Output for Last 24 Hours 03/21/20 03/22/20 03/23/20 23:59 23:59 23:59 Intake Total 840 / 840 300 / 300 Output Total 750 / 750 1000 / 1000 Balance 90 / 90 -1000 / -1000 300 / 300 General: Alert, Oriented x3, Cooperative, No apparent distress HEENT: Atraumatic, PERRLA, EOMI, Normocephalic Oral: Moist Mucosa, No Gingival or Mucosal Lesions/ Ulcerations Neck: Supple, No JVD, Negative Carotid Bruits, Trachea Midline, Thyroid Normal Size and Texture Lungs: Clear to auscultation, No rhonchi, No wheeze, No rales, Diminished Cardiovascular: Regular rate, Regular Rhythm, Normal S1, Normal S2, PMI Normal Abdomen: Bowel Sounds Present, Soft, Non Tender, Non-Distended, No Hepato-splenomegaly Extremities: No clubbing, No cyanosis, No edema Skin: No rashes, No breakdown Lymphatic: No Cervical, Supraclavicular, or Inguinal Adenopathy Neurological: Cranial nerves II-XII grossly intact, Motor Exam 5/5 strength throughout Psych/Mental Status: Normal Affect, Appropriate Laboratory Results 03/22/20 16:01: POC Glucose 133 H 03/22/20 21:24: POC Glucose 168 H 03/23/20 05:50: WBC 6.7, RBC 3.66 L, Hgb 10.6 L, Hct 33.5 L, MCV 91.5, MCH 29.0, MCHC 31.6 L, RDW Std Deviation 46.2 H, RDW Coeff of Laomnt 13.7, Plt Count 235, MPV 9.4, Immature Gran % (Auto) 0.400, Neut % (Auto) 51.4, Lymph % (Auto) 43.0 H, [place] % (Auto) 4.2, Eos % (Auto) 0.9, Baso % (Auto) 0.1, Absolute Neuts (auto) 3.5, Absolute Lymphs (auto) 2.89, Nucleated RBC % 0 03/23/20 08:23: POC Glucose 135 H 03/23/20 12:08: POC Glucose 148 H Current Medications Acetaminophen (Acetaminophen 325 Mg Tablet) 650 mg PO Q6H PRN PRN PRN Reason: Pain Score 1-10/Temp > 100.7 F Last Admin: 03/18/20 20:53 Dose: 650 mg Documented by: Albuterol Sulfate (Albuterol Ih 8.5 Gm (Proair) Inhaler (200 Puffs)) 2 puff INHALATION Q4H PRN PRN PRN Reason: Shortness of breath, wheezing Last Admin: 03/17/20 20:27 Dose: 2 puff Documented by: Aspirin (Aspirin E.C. 81 Mg Tablet) 81 mg PO DAILY [facility] Last Admin: 03/23/20 08:39 Dose: 81 mg Documented by: Atorvastatin Calcium (Atorvastatin Calcium 40 Mg Tablet) 40 mg PO QHS [facility] Last Admin: 03/22/20 22:23 Dose: 40 mg Documented by: Calamine/Phenol (Menthol/Lanolin/Calamine/Znox 113 Gm Tube) 1 applic TOPICAL BID [facility]; Protocol Last Admin: 03/23/20 08:37 Dose: 1 applicatio Documented by: Carvedilol (Carvedilol 3.125 Mg Tablet) 3.125 mg PO BID [facility] Last Admin: 03/23/20 08:38 Dose: 3.125 mg Documented by: Dextrose (Dextrose 50%-Water 25 Gm/50 Ml Disp.Syrin) 0 gm IV X1 PRN; Protocol PRN Reason: Hypoglycemia Enoxaparin Sodium (Enoxaparin 30 Mg/0.3 Ml Syringe) 30 mg SC BID [facility] Last Admin: 03/23/20 08:39 Dose: 30 mg Documented by: Finasteride (Finasteride 5 Mg Tablet) 5 mg PO DAILY [facility] Last Admin: 03/23/20 08:40 Dose: 5 mg Documented by: Furosemide (Furosemide 40 Mg Tablet) 40 mg PO DAILY [facility] Last Admin: 03/23/20 08:39 Dose: 40 mg Documented by: Glucagon (Glucagon 1 Mg/Ml Syringe) 1 mg IM .X1 PRN PRN Reason: Hypoglycemia Guaifenesin (Guaifenesin 10 Ml Udc (200mg/10ml)) 10 ml PO Q4H PRN PRN PRN Reason: COUGH Last Admin: 03/18/20 20:53 Dose: 10 ml Documented by: Sodium Chloride () 250 mls @ 15 mls/hr IV .[id number] PRN PRN Reason: Saline Flush Insulin Glargine (Insulin Glargine 100 Units/Ml Pen) 15 units SC BREAKFAST [facility] Last Admin: 03/23/20 08:37 Dose: 15 units Documented by: Insulin Human Lispro (Insulin Lispro 100 Unit/Ml Insuln.Pen) 0 unit SC 4X/DAYCM [facility]; Protocol Last Admin: 03/23/20 12:13 Dose: Not Given Documented by: Levothyroxine Sodium (Levothyroxine 75 Mcg Tablet) 75 mcg PO DAILY [facility] Last Admin: 03/23/20 08:40 Dose: 75 mcg Documented by: Ondansetron HCl (Ondansetron 4 Mg/2 Ml Vial) 4 mg IV Q8H PRN PRN PRN Reason: NAUSEA/VOMITING Polyethylene Glycol (Polyethylene Glycol 3350 17 Gm Packet) 17 gm PO DAILY [facility] Last Admin: 03/23/20 08:39 Dose: Not Given Documented by: Quetiapine Fumarate (Quetiapine 25 Mg Tablet) 25 mg PO BID [facility] Last Admin: 03/23/20 08:40 Dose: 25 mg Documented by: Senna/Docusate Sodium (Senna/Docusate Sodium 1 Tablet) 2 tablet PO BID PRN PRN PRN Reason: Constipation Sodium Chloride (0.9% Saline Lock 10 Ml Syringe) 10 - 40 ml IV UD PRN PRN Reason: SALINE FLUSH Last Admin: 03/15/20 08:41 Dose: 10 ml Documented by: Tamsulosin HCl (Tamsulosin Hcl 0.4 Mg Capsule) 0.4 mg PO DAILY@1730 MICHAEL Last Admin: 03/22/20 16:03 Dose: 0.4 mg Documented by: Zolpidem Tartrate (Zolpidem Tartrate 5 Mg Tablet) 5 mg PO QHS PRN PRN PRN Reason: INSOMNIA Medical Necessity - Tobacco Use Smoking Status: Former smoker Assessment/Plan All Active Problems (Last Reviewed 01/31/20 @ 14:[address] Andres Peres MD) Pneumonia due to COVID-19 virus (Acute) This is an 84 years old male patient presented to the emergency room because of fever as well as mild chronic cough and he tested positive for COVID-19 antigen, found to have bilateral infiltrates on chest x-ray and he is being admitted for acute COVID-19 pneumonia and hypoxia. Later, he developed confusion and encephalopathy. #1 acute bilateral COVID-19 pneumonia/hypoxia: He completed IV remdesivir and IV Decadron. Respiratory status has been stable, remains on 2 L of oxygen, other vital signs are stable. Blood culture showed no growth in 5 days. Plan: Awaiting placement to retirement facility. #2 acute encephalopathy: Patient had an episode of confusion 4 days ago. Today, he is alert and oriented x3. He has no focal deficit. CT scan brain showed no acute findings. It is likely metabolic encephalopathy in addition to possible baseline dementia. Currently, patient is alert and oriented x3. #3 status post recent TURP: This was done on January 31, 2020. Urine culture revealed mixed growth. Patient has been afebrile. Blood culture was negative as above. Continue Flomax. #4 pancytopenia/anemia: Platelet count and WBC are back to normal. Today's hemoglobin is 10.6 g/dL, stable at baseline, improved. He does have chronic iron deficiency anemia. Baseline hemoglobin has been around anywhere from 9 to 11 g/dL. #5 acute kidney injury on top of stage III chronic kidney disease: Baseline creatinine has been around 1.3, admission creatinine is 1.71. Patient received IV fluids and his last creatinine was 0.982 days ago. Improved. #6 CAD status post stents: Stable, no acute changes. Troponin is negative. Continue aspirin, statins, Coreg. #7 type 2 diabetes mellitus: Blood sugar has been stable, he is on Lantus and sliding scale. #8 hypertension: Blood pressure stable, continue Coreg, losartan held. #9 hyperlipidemia: Continue statins. #10 hypothyroidism: Continue levothyroxine. #11 DVT prophylaxis: Subcu Lovenox twice daily. This note was generated with [employer] dictation software. It may contain incorrect words, spelling, and punctuation that were not noted in checking the note before signing. Inpatient E&M: 59378 Subs Hosp L2
--- NOTE | 2020-03-23 13:45 | CASEMGMT ---
Addendum entered by Deirdre Palmer 03/23/20 16:54: SW is leaving for the day, Pt's daughter has not returned this worker's phone call at this time. VÍCTOR updated physician pt is not able to discharge to SNF today as pt needs accepting facility and pre-cert. Original Note: Social Work Note SW attempted to call pt's room again to discuss discharge planning. RN answered the phone, states to have this worker call pt's daughter Jossie to discuss discharge plans. VÍCTOR placed a call to pt's daughter Jossie and introduced self and role at [facility]. VÍCTOR updated Jossie that pt was assist of two with PT/OT and recommendation is SNF. Jossie asked about pt stating at [facility] for therapy in the step down unit. VÍCTOR informed Jossie that [facility] does have TCU but they are not accepting COVID pt's. VÍCTOR verbally provided Jossie with list of SNF that accept pt's insurance and are taking COVID+ pt's. Jossie states she will check with other siblings and give this worker a call back regarding SNF choice. VÍCTOR explained referral process and that pt will need pre-cert. VÍCTOR informed Jossie that pt is medically ready for discharge. Jossie asked about taking pt home. VÍCTOR explained that pt was assist of two with PT/OT so pt would need 24/7 care. VÍCTOR explained HHC and that RN would be out once a week and PT/OT would be out 2-3 times a week for about an hour. VÍCTOR informed Jossie that private duty aides are an option but those would be private pay. Jossie states again she will review SNF list and call this worker back. RN updated. Plan: SNF pending acceptance and pre-cert Deirdre Palmer [facility], [employer]
[2020-03-23] MEDS: Tamsulosin HCl 0.4 MG Capsule PO (16:40)
[2020-03-23] MEDS: Insulin Lispro 100 UNIT/ML INSULN.PEN SC ×2 (16:41→21:12)
[2020-03-23 16:51] LABS: Bedside Glucose 157 mg/dL (70-110)
[2020-03-23] MEDS: Atorvastatin Calcium 40 MG Tablet PO (21:12)
[2020-03-23 21:20] VITALS: BP 145/80; PULSE 72; RESP 18; TEMP 36.7; O2SAT 93
[2020-03-23 22:25] LABS: Bedside Glucose 214 mg/dL (70-110)
[2020-03-24 04:26] VITALS: BP 147/88; PULSE 66; RESP 16; TEMP 36.6; O2SAT 95
[2020-03-24 06:00] VITALS: O2SAT 95
[2020-03-24 07:46] LABS: Bedside Glucose 145 mg/dL (70-110)
[2020-03-24 08:02] VITALS: BP 162/81; PULSE 64; RESP 16; TEMP 36.7; O2SAT 95
[2020-03-24] MEDS: Menthol/Lanolin/Calamine/Znox 113 GM Tube 1 APPLIC TOPICAL (08:12)
[2020-03-24] MEDS: Aspirin E.C. 81 MG Tablet PO (08:13)
[2020-03-24] MEDS: Carvedilol 3.125 MG TABLET PO (08:13)
[2020-03-24] MEDS: Enoxaparin 30 MG/0.3 ML Syringe SC (08:14)
[2020-03-24] MEDS: Furosemide 40 MG Tablet PO (08:14)
[2020-03-24] MEDS: Levothyroxine 75 MCG Tablet PO (08:14)
[2020-03-24] MEDS: QUEtiapine 25 MG Tablet PO (08:14)
[2020-03-24] MEDS: Finasteride 5 MG Tablet PO (08:20)
--- NOTE | 2020-03-24 09:12 | CASEMGMT ---
Addendum entered by Griselda Hager 03/24/20 14:05: Precert was attained by [facility] to go to [facility] today. SW called [facility], set up ambulance, 7pm is pickup time. SW left a message for daughter Jossie, and let Kayla at [facility] know time. Bedside RN also aware of time. SW attempted to call pt to let him know, he did not grape picker the phone. No further needs, pt to [facility] today. ERICA Sanchez Addendum entered by Griselda Hager 03/24/20 13:26: SW spoke w/[facility], they are to call back regarding the authorization. Also, SW faxed all discharge instructions to [facility]. ERICA Sanchez Addendum entered by Griselda Hager 03/24/20 12:39: [facility] can take pt. SW faxed referral to [facility], calling now to see if the authorization has been issued for pt. VÍCTOR completed hospital exemption in [facility]. VÍCTOR will continue to follow. ERICA Sanchez Original Note: Pt's daughter called in, left a message stating she wanted referral sent to [facility] in [place]. SW called [facility], spoke w/Kayla in admissions. She states she is at a different facility today but will have her women's activities adviser look at the information and let this SW know. VÍCOTR faxed referral, will fax information to [facility] shortly to start the precert process. VÍCTOR will continue to follow. ERICA Sanchez
[2020-03-24] MEDS: Insulin Lispro 100 UNIT/ML INSULN.PEN SC (11:09)
[2020-03-24 11:15] LABS: Bedside Glucose 166 mg/dL (70-110)
[2020-03-24 12:34] VITALS: O2SAT 95
--- NOTE | 2020-03-24 13:59 | PCM.DC.SUM ---
Discharge Date and Diagnosis - Problem List Patient Problems: Active and Suspected Problems (Last Reviewed 01/31/20 @ 14:[address] Andres Peres MD) Pneumonia due to COVID-19 virus (Acute) Date of Admission: 03/09/20 Date of Discharge: 03/24/20 - Primary Discharge Diagnosis Acute Problems: Active Problems (Last Reviewed 01/31/20 @ 14:[address] Andres Peres MD) #1 acute bilateral COVID-19 pneumonia. #2 acute hypoxic respiratory failure. #3 encephalopathy, likely metabolic, resolved. #4 acute kidney injury on top of stage III chronic kidney disease. #5 pancytopenia/anemia. #6 status post recent TURP. - Secondary Discharge Diagnosis Chronic Problems: Chronic Problems (Last Reviewed 01/31/20 @ 14:[address] Andres Peres MD) Bladder mass (Chronic) Left ventricular systolic dysfunction (Chronic) per echo 02/23/2016 History of left heart catheterization (Chronic) 02/22/2016 Acute Anterior STEMI;LHC, PTCA and ANDRY X2 to proximal and mid LAD, POBA of ostium of dx per Dr. King, [facility] Stented coronary artery (Chronic) 02/22/2016 Acute Anterior STEMI; PTCA and ANDRY X2 to proximal and mid LAD, POBA of ostium of dx History of lateral wall myocardial infarction (Chronic) 02/22/2016 Atherosclerotic heart disease of [place] coronary artery without angina pectoris (Chronic) 02/22/2016 Acute lateral STEMI; PTCA and ANDRY X2 to proximal and mid LAD, POBA of ostium of dx Hyperlipidemia (Chronic) Hypertension (Chronic) Type 2 diabetes mellitus (Chronic) Hospital Course and Treatment Imaging Results: Clinical Impression(s) from Imaging Studies Chest X-Ray 03/09/20 19:35 IMPRESSION: Findings suspicious for evolving inflammatory disease in the lower lobes greater on the left Electronically Signed: Deandre Taylor MD at 20:25 EST , Service support , Chest X-Ray 03/14/20 08:47 IMPRESSION: Similar bilateral prominent interstitial markings with left lower lobe airspace disease concerning for acute infiltrate in the appropriate clinical setting. Electronically Signed: Chandan Rush DO at 10:02 EST , Service support , Brain CT 03/18/20 11:38 IMPRESSION: 1. No acute intracranial hemorrhage or mass effect. 2. Central parenchymal volume loss. White matter changes that are nonspecific but most commonly associated with chronic small vessel ischemic disease. 3. Right middle cranial arachnoid cyst. Electronically Signed: Roger Ambrocio MD ([place]) at 13:21 EST , Service support , Chest X-Ray 03/21/20 05:55 IMPRESSION: Worsening bibasilar pneumonia. Electronically Signed: Jameel Dyson MD at 6:32 EST Tel , Service support , Dr. Emery, infectious disease. Operations: None, - - Cystoscopy evacuation of blood clots cauterization of prostatic hemorrhaging Procedures: None Summary of Care Provided: Patient seen and examined on the day of discharge and appeared to be stable to be discharged to [facility] facility. He was alert and oriented x3. His breathing has been stable, has been on 2 L. His vital signs are stable. This is an 84 years old male patient presented to the emergency room because of fever as well as mild chronic cough and he tested positive for COVID-19 antigen, found to have bilateral infiltrates on chest x-ray and he is being admitted for acute COVID-19 pneumonia and hypoxia. Later, he developed confusion and encephalopathy. #1 acute bilateral COVID-19 pneumonia/hypoxia: He was treated and completed IV remdesivir and IV Decadron. Initially, patient is requiring high flow oxygen with Ventimask on BiPAP, nasal cannula up to 15 L. With treatment, respiratory status improved and he remained stable on 2 L. Blood culture showed no growth in 5 days. Patient discharged to SNF in a stable condition, discharged on oxygen at 2 L, he completed the 20 days requirement for quarantine for COVID-19, he completed remdesivir and Decadron. #2 acute encephalopathy: Patient had an episode of confusion. CT scan brain showed no acute findings. It is likely metabolic encephalopathy in addition to possible baseline dementia. Upon discharge, patient is alert and oriented x3. #3 status post recent TURP: This was done on January 31, 2020. Urine culture revealed mixed growth. Patient has been afebrile. Blood culture was negative as above. Continue Flomax. #4 pancytopenia/anemia: WBC and platelet count returned back to normal. Hemoglobin upon discharge was 10.6 g/dL which is at his baseline.. There was no active bleeding and no indication for blood transfusion. #5 acute kidney injury on top of stage III chronic kidney disease: Baseline creatinine has been around 1.3, admission creatinine is 1.71. Patient received IV fluids and his last creatinine was 0.982, improved. #6 CAD status post stents: Continued on aspirin, statins, Coreg. Patient discharged to [facility] facility in a stable medical condition, he completed remdesivir and Decadron, completed. 20 days requirement for quarantine for COVID-19, started back on his home medication without any changes, discharged on oxygen at 2 L, recommended follow-up with PCP in 1 week. This note was generated with [employer] dictation software. It may contain incorrect words, spelling, and punctuation that were not noted in checking the note before signing. Patient Problems: Active and Suspected Problems (Last Reviewed 01/31/20 @ 14:[address] Andres Peres MD) Pneumonia due to COVID-19 virus (Acute) - Physical Exam Vitals/I&O's: Vital Signs Temp Pulse Resp BP Pulse Ox 98.0 F 64 16 162/81 H 95 03/24/20 08:02 03/24/20 08:02 03/24/20 08:02 03/24/20 08:02 03/24/20 08:02 Oxygen Flow Rate (L/min) 2 Oxygen Delivery Method Nasal Cannula Weight: 184 lb 9.594 oz Body Mass Index (BMI) 26.4 Finger Stick Blood Glucose 123 Intake and Output for Last 24 Hours 03/22/20 03/23/20 03/24/20 23:59 23:59 23:59 Intake Total 300 / 300 200 / 200 Output Total 1000 / 1000 Balance -1000 / -1000 300 / 300 200 / 200 General: Alert, Oriented x3, Cooperative, No apparent distress HEENT: Atraumatic, PERRLA, EOMI, Normocephalic Oral: Moist Mucosa Neck: Supple, No JVD, Negative Carotid Bruits, Trachea Midline, Thyroid Normal Size and Texture Lungs: Clear to auscultation, No rhonchi, No wheeze, No rales, Diminished Cardiovascular: Regular rate, Regular Rhythm, Normal S1, Normal S2, PMI Normal Abdomen: Bowel Sounds Present, Soft, Non Tender, Non-Distended, No Hepato-splenomegaly Extremities: No clubbing, No cyanosis, No edema Skin: No rashes, No breakdown Neurological: Cranial nerves II-XII grossly intact, Neuro grossly intact Psych/Mental Status: Normal Affect, Appropriate Laboratory Results 03/23/20 16:39: POC Glucose 157 H 03/23/20 21:09: POC Glucose 214 H 03/24/20 06:48: POC Glucose 145 H 03/24/20 11:06: POC Glucose 166 H Current Medications Acetaminophen (Acetaminophen 325 Mg Tablet) 650 mg PO Q6H PRN PRN PRN Reason: Pain Score 1-10/Temp > 100.7 F Last Admin: 03/18/20 20:53 Dose: 650 mg Documented by: Albuterol Sulfate (Albuterol Ih 8.5 Gm (Proair) Inhaler (200 Puffs)) 2 puff INHALATION Q4H PRN PRN PRN Reason: Shortness of breath, wheezing Last Admin: 03/17/20 20:27 Dose: 2 puff Documented by: Aspirin (Aspirin E.C. 81 Mg Tablet) 81 mg PO DAILY [facility] Last Admin: 03/24/20 08:13 Dose: 81 mg Documented by: Atorvastatin Calcium (Atorvastatin Calcium 40 Mg Tablet) 40 mg PO QHS [facility] Last Admin: 03/23/20 21:12 Dose: 40 mg Documented by: Calamine/Phenol (Menthol/Lanolin/Calamine/Znox 113 Gm Tube) 1 applic TOPICAL BID [facility]; Protocol Last Admin: 03/24/20 08:12 Dose: 1 applicatio Documented by: Carvedilol (Carvedilol 3.125 Mg Tablet) 3.125 mg PO BID [facility] Last Admin: 03/24/20 08:13 Dose: 3.125 mg Documented by: Dextrose (Dextrose 50%-Water 25 Gm/50 Ml Disp.Syrin) 0 gm IV X1 PRN; Protocol PRN Reason: Hypoglycemia Enoxaparin Sodium (Enoxaparin 30 Mg/0.3 Ml Syringe) 30 mg SC BID [facility] Last Admin: 03/24/20 08:14 Dose: 30 mg Documented by: Finasteride (Finasteride 5 Mg Tablet) 5 mg PO DAILY [facility] Last Admin: 03/24/20 08:20 Dose: 5 mg Documented by: Furosemide (Furosemide 40 Mg Tablet) 40 mg PO DAILY [facility] Last Admin: 03/24/20 08:14 Dose: 40 mg Documented by: Glucagon (Glucagon 1 Mg/Ml Syringe) 1 mg IM .X1 PRN PRN Reason: Hypoglycemia Guaifenesin (Guaifenesin 10 Ml Udc (200mg/10ml)) 10 ml PO Q4H PRN PRN PRN Reason: COUGH Last Admin: 03/18/20 20:53 Dose: 10 ml Documented by: Sodium Chloride () 250 mls @ 15 mls/hr IV .[id number] PRN PRN Reason: Saline Flush Insulin Glargine (Insulin Glargine 100 Units/Ml Pen) 15 units SC BREAKFAST [facility] Last Admin: 03/24/20 08:12 Dose: 15 units Documented by: Insulin Human Lispro (Insulin Lispro 100 Unit/Ml Insuln.Pen) 0 unit SC 4X/DAYCM [facility]; Protocol Last Admin: 03/24/20 11:09 Dose: 1 u Documented by: Levothyroxine Sodium (Levothyroxine 75 Mcg Tablet) 75 mcg PO DAILY [facility] Last Admin: 03/24/20 08:14 Dose: 75 mcg Documented by: Ondansetron HCl (Ondansetron 4 Mg/2 Ml Vial) 4 mg IV Q8H PRN PRN PRN Reason: NAUSEA/VOMITING Polyethylene Glycol (Polyethylene Glycol 3350 17 Gm Packet) 17 gm PO DAILY [facility] Last Admin: 03/24/20 08:14 Dose: Not Given Documented by: Quetiapine Fumarate (Quetiapine 25 Mg Tablet) 25 mg PO BID [facility] Last Admin: 03/24/20 08:14 Dose: 25 mg Documented by: Senna/Docusate Sodium (Senna/Docusate Sodium 1 Tablet) 2 tablet PO BID PRN PRN PRN Reason: Constipation Sodium Chloride (0.9% Saline Lock 10 Ml Syringe) 10 - 40 ml IV UD PRN PRN Reason: SALINE FLUSH Last Admin: 03/15/20 08:41 Dose: 10 ml Documented by: Tamsulosin HCl (Tamsulosin Hcl 0.4 Mg Capsule) 0.4 mg PO DAILY@1730 [facility] Last Admin: 03/23/20 16:40 Dose: 0.4 mg Documented by: Zolpidem Tartrate (Zolpidem Tartrate 5 Mg Tablet) 5 mg PO QHS PRN PRN PRN Reason: INSOMNIA Home Medications: Medications to take at Discharge levothyroxine 75 mcg tablet 75 mcg PO DAILY 04/23/18 atorvastatin 40 mg tablet 40 mg PO QHS #90 tab 05/24/18 Dutasteride [Avodart] 0.5 mg PO DAILY #90 cap 01/20/20 Carvedilol 3.125 mg PO BID 01/29/20 Losartan Potassium [Cozaar] 25 mg PO DAILY 01/29/20 Smz/Tmp Ds [Bactrim Ds] 1 tab PO BID #14 tab 03/06/20 Aspirin E.C. [Ecotrin] 81 mg PO DAILY@0800 03/09/20 Furosemide [Lasix] 20 mg PO DAILY #30 tab 03/23/20 Following Prescriptions Were Given to Patient: Furosemide [Lasix] 20 mg PO DAILY #30 tab Prescription Printed Primary Care Physician: Wagner Gr MD [Primary Care Provider] - Please follow up with your Primary Care Physician in: 1 week. Disposition: [facility] facility Minutes spent on discharge:: 33 Patient Condition:: Stable Medical Necessity - Tobacco Use Smoking Status: Former smoker Meaningful Use Info Meaningful Use Diagnoses (Choose all that apply): None applicable Inpatient E&M: 52490 Disch Hosp
[2020-03-24 14:48] VITALS: BP 110/72; PULSE 93; RESP 18; TEMP 36.8; O2SAT 97
[2020-03-24] MEDS: Tamsulosin HCl 0.4 MG Capsule PO (17:00)
[2020-03-24 17:10] LABS: Bedside Glucose 128 mg/dL (70-110)
== END 2020-03-24 19:30 | disposition skilled nursing facility (03) | DRG 177 ==
LOC: ED 20:36 → MS2 21:56
PROVIDERS: Internal Medicine; Internal Medicine Infectious Disease; Admitting Provider Hospitalist; Emergency Provider Emergency Medicine; PCP Family Medicine; Visit Provider Hospitalist
DX: U07.1 COVID-19 (principal); J12.82 Pneumonia due to coronavirus disease 2019; J96.01 Acute respiratory failure with hypoxia; I50.33 Acute on chronic diastolic (congestive) heart failure; G93.41 Metabolic encephalopathy; I13.0 Hypertensive heart and chronic kidney disease with heart failure and stage 1 through stage 4 chronic kidney disease, or unspecified chronic kidney disease; N17.9 Acute kidney failure, unspecified; D61.818 Other pancytopenia; E87.3 Alkalosis; N39.0 Urinary tract infection, site not specified; E11.649 Type 2 diabetes mellitus with hypoglycemia without coma; I12.9 Hypertensive chronic kidney disease with stage 1 through stage 4 chronic kidney disease, or unspecified chronic kidney disease; E11.22 Type 2 diabetes mellitus with diabetic chronic kidney disease; N18.30 Chronic kidney disease, stage 3 unspecified; D50.9 Iron deficiency anemia, unspecified; I25.10 Atherosclerotic heart disease of native coronary artery without angina pectoris; E78.5 Hyperlipidemia, unspecified; E03.9 Hypothyroidism, unspecified; N40.1 Benign prostatic hyperplasia with lower urinary tract symptoms; N39.498 Other specified urinary incontinence; Z79.82 Long term (current) use of aspirin; Z79.890 Hormone replacement therapy; Z79.899 Other long term (current) drug therapy; I25.2 Old myocardial infarction; Z95.5 Presence of coronary angioplasty implant and graft; Z87.891 Personal history of nicotine dependence; Z90.79 Acquired absence of other genital organ(s)
CPT/HCPCS: 36415; 36600; 70450; 71045; 80048; 80053; 81001; 82140; 82550; 82607; 82746; 82803; 82962; 83605; 83615; 83735; 83880; 84100; 84484; 85025; 85027; 85379; 85610; 87040; 87086; 87088; 87426; 93005; 94660; 94668; 97110; 97116; 97162; 97166; 97530; 97535; 99251; 99285; J7030; J7050; A4216; G0463; J1940

== ENCOUNTER 2022-12-08 13:11 | Observation (INO) | payer MEDICARE, SELFPAY ==
[2022-12-08] VITALS (10 sets, daily range): BP systolic 98–158; BP diastolic 49–92; PULSE 58–78; RESP 12–27; TEMP 36.2–37.3; O2SAT 95–98; BMI 24.2; BMI 24.3
--- NOTE | 2022-12-08 14:22 | EDS_ITS ---
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 Gr manages cholesterol #90 tabs 05/24/18 [Rx Last Taken 03/09/20] carvedilol 3.125 mg tablet 3.125 mg PO BID bp 01/29/20 [History Last Taken 03/09/20] aspirin 81 mg tablet,delayed release 81 mg PO DAILY@0800 [facility] 03/09/20 [History Last Taken 03/09/20] losartan 25 mg tablet 25 mg PO DAILY bp #90 tabs 06/25/20 [Rx Last Taken Unknown] clopidogrel 75 mg tablet 75 mg PO DAILY 03/22/21 [History Last Taken Unknown] finasteride 5 mg tablet 5 mg PO DAILY 09/29/21 [History Last Taken Unknown] donepezil 5 mg tablet 5 mg PO DAILY 12/08/22 [History Last Taken Unknown] dutasteride 0.5 mg capsule 0.5 mg PO DAILY 12/08/22 [History Last Taken Unknown] oxybutynin chloride 10 mg tablet,extended release 24 hr 5 mg PO DAILY 12/08/22 [History Last Taken Unknown] Allergy/AdvReac Type Severity Reaction Status Date / Time Penicillins Allergy Hives Verified 12/08/22 15:29 tree and shrub pollen Allergy Other Verified 12/08/22 15:29 lisinopril AdvReac Mild cough Verified 12/08/22 15:29 Family History Father , age 39 from [place] CAD (coronary artery disease) Myocardial infarction Sudden cardiac Mother Diabetes Surgical History History of appendectomy History of left heart catheterization Presence of coronary angioplasty implant and graft (~02/22/16) Social History Smoking Status: Former smoker how long ago did patient quit smokin years ago alcohol intake: current alcohol intake frequency: a few times a week Alcohol type: beer substance use type: does not use caffeine: Yes Type: coffee Number of servings: 2 EXAM Physical Exam Const Vital Signs: 12/08/22 13:12 12/08/22 15:27 12/08/22 15:27 Temperature 97.2 F L Temperature Source Temporal Pulse Rate 72 58 L Respiratory Rate 16 19 H Respiratory Effort Respiratory Pattern Blood Pressure 98/49 L 112/57 L Blood Pressure Mean 65 75 Pulse Ox 95 96 96 Oxygen Delivery Method Room Air Room Air Room Air 12/08/22 15:30 12/08/22 16:48 12/08/22 17:04 Temperature 98.0 F Temperature Source Oral Pulse Rate 58 L 59 L Respiratory Rate 27 H 13 Respiratory Effort Normal Non-Labored Respiratory Pattern Normal Blood Pressure 139/69 H 136/65 H Blood Pressure Mean 92 88 Pulse Ox 98 97 Oxygen Delivery Method Room Air Room Air 12/08/22 17:53 12/08/22 18:00 Temperature 98.7 F 98.7 F Temperature Source Oral Temporal Pulse Rate 60 75 Respiratory Rate 12 18 Respiratory Effort Respiratory Pattern Blood Pressure 141/66 H 158/92 H Blood Pressure Mean 91 114 Pulse Ox 96 98 Oxygen Delivery Method Room Air Room Air [facility] MDM Narrative Medical decision making narrative: HISTORY OF PRESENT ILLNESS: 86-year-old male here with concern for hypotension. He states he was seen by his PCP and sent him in 2/2 to SBP in the 70 -80s per family. Family concerned about UTI given fever last night. They further state they are concerned about a UTI. They state he had a fever last night that improved with Tylenol. Patient denies any complaints or source of infection including cough, abdominal pain, urinary symptoms such as dysuria. REVIEW OF SYSTEMS: Pertinent positives: Fever, low blood pressure Pertinent negatives: Chest pain, shortness of breath, cough, abdominal pain, urinary complaints PHYSICAL EXAM: Nursing triage notes reviewed, Vital signs reviewed Constitutional: please see mdm HENT: MMM Eyes: Pupils equal round and reactive to light, Extraocular muscles intact Neck: No stridor, no JVD, full neck ROM Lungs: Clear to auscultation, No wheezing or rales. No increased work of breathing, no conversational dyspnea, no accessory muscle use, no nasal flaring. No respiratory distress noted Heart: Regular rate and rhythm, No murmurs, No rubs and No gallops, 2+ distal pulses (radial, femoral, posterior tibial) in all extremities Abdomen: Soft, there is no tenderness, rigidity, rebound or guarding, no obvious peritoneal signs, no palpable pulsatile abdominal masses, no auscultated abdominal bruit : No CVAT Extremities: No edema Neuro: No focal neurological deficits, cranial nerves II through XII intact, 5/5 strength in all extremities. Intact sensation to light touch in all extremities, 2+ reflexes bilateral patella tendons. Normal gait. No ataxia. Skin: No rash or lesions noted MEDICAL DECISION MAKING: Chief Complaint: Hypotension, concern for UTI External records reviewed: Urine culture 2019 shows gram-positive organisms however this was not a significant culture. Negative urine culture and February 2000 Factors affecting care: CAD status post stent, hypertension, hyperlipidemia, type 2 diabetes, Social determinants of health: none History obtained from others: The patient's daughters Consults: none at this time MDM Narrative: Patient was initially hypotensive otherwise hemodynamically stable afebrile and nontoxic-appearing. Blood pressure improved with 1 L saline bolus. I considered the following differential diagnosis: Distributive shock, sepsis, neurogenic shock, hemorrhagic shock, hypovolemic shock ALL IMAGES (IF OBTAINED) HAVE BEEN PERSONALLY REVIEWED AND INTERPRETED BY MYSELF. I have personally reviewed the patient's chest x-ray. Chest x-ray is unremarkable for pulmonary edema, pneumothorax, pneumonia or focal cardiopulmonary abnormality. EKG with normal sinus rhythm, left ax deviation, no STEMI CBC with no leukocytosis, baseline anemia, noted thrombocytopenia There is no coagulopathy noted on PT, INR and PTT BMP with noted hypokalemia, no hyponatremia or other significant electrode abnormalities there is acute kidney injury concerning for dehydration Lactate is wnl indicating no end-organ hypoperfusion and/or hypoxia. LFTs with evidence of hyperbilirubinemia new from prior, no evidence of other obstructive hepatobiliary pathology with normal liver enzymes as well as normal alkaline phosphatase The patient and/or family, caregivers express understanding. The patient and/or family, caregivers agrees with the plan. Shared decision making: I will have a discussion with the patient and or visitors regarding risk/benefits of further testing or admission. They will be made aware of of the risk/benefits inherent in this decision they will be given the opportunity to voice understanding. Total critical care time today provided was at least 0 minutes. This excludes separately billable procedures. Critical care time (if documented) is secondary to the patient having high probability of clinically significant/life threatening deterioration in the patient's condition which required my urgent intervention. Impression: 1. Hypotension 2. Hypokalemia 3. RACHEL Dispo: admit to Hospice vs floor Lab Data Labs: Laboratory Results - last 24 hr 12/08/22 12/08/22 14:45 16:45 WBC 4.5 RBC 3.50 L Hgb 10.9 L Hct 32.5 L MCV 92.9 MCH 31.1 MCHC 33.5 RDW Std Deviation 50.8 H RDW Coeff of [place] 14.9 H Plt Count 75 L MPV 9.4 Neut % (Auto) Not Reportable Absolute Neuts (auto) 0.8 L Absolute Lymphs (auto) 3.10 Total Counted 100 Neutrophils % (Manual) 15 L Band Neutrophils % 2 Lymphocytes % (Manual) 69 H Monocytes % (Manual) 1 Metamyelocytes % 8 H Myelocytes % 5 H Diff Path Review May foll Platelet Estimate MOD DEC RBC Morphology NORM C+C PT 14.8 INR 1.2 APTT 31.6 Sodium 137 Potassium 3.3 L Chloride 102 Carbon Dioxide 29.0 Anion Gap 6 BUN 30 H Creatinine 1.45 H Est GFR (MDRD) Af Amer 60 Est GFR (MDRD) Non-Af 49 L BUN/Creatinine Ratio 20.7 H Glucose 135 H Lactic Acid 0.9 Calcium 8.2 L Total Bilirubin 1.30 H AST 20 ALT 16 Alkaline Phosphatase 73 Total Protein 6.3 L Albumin 3.2 Globulin 3.1 Albumin/Globulin Ratio 1.0 Urine Color Yellow Urine Clarity Clear Urine pH 6.0 Ur Specific [place] 1.015 Urine Protein 15 H Urine Glucose (UA) Normal Urine Ketones Negative Urine Occult Blood 150 H Urine Nitrite Negative Urine Bilirubin Negative Urine Urobilinogen Normal Ur Leukocyte Esterase 500 H Urine RBC 0-5 SEEN Urine WBC 5-10 SEEN Ur Squamous Epith Cells 0 SEEN Urine Bacteria RARE Urine Mucus 0 SEEN Radiography Diagnostic Testing: Clinical Impression(s) from Imaging Studies Chest X-Ray 12/08/22 15:06 IMPRESSION: Normal x-ray examination of the chest. Electronically Signed: Jamal Mann MD at 16:09 EDT , Discharge Plan Triage Chief Complaint: Hypotension ED Provider: Shane Jean Dx/Rx/DC Orders Prescriptions: No Action levothyroxine 75 mcg tablet 88 mcg PO DAILY clopidogrel 75 mg tablet 75 mg PO DAILY Hold Instructions: Pt has been DC'd finasteride 5 mg tablet 5 mg PO DAILY Hold Instructions: Pt has been DC'd Patient Comments: TAKE 1 TABLET BY MOUTHTONCE DAILY carvedilol 3.125 MG tablet 3.125 mg PO BID aspirin 81 MG tablet 81 mg PO DAILY@0800 oxybutynin chloride 10 mg tablet extended release 24hr 5 mg PO DAILY Patient Comments: TAKE 1 TABLET BY MOUTH)ONCE DAILY dutasteride 0.5 mg capsule 0.5 mg PO DAILY donepezil 5 mg tablet 5 mg PO DAILY atorvastatin 40 mg tablet 40 mg PO QHS Qty: 90 3RF losartan 25 mg tablet 25 mg PO DAILY Qty: 90 3RF Primary Care Provider: Wagner Gr Referrals: Wagner Gr MD [Primary Care Provider] -
--- NOTE | 2022-12-08 14:25 | EKG12_ITS ---
Test Reason : Blood Pressure : / mmHG Vent. Rate : 070 BPM Atrial Rate : 070 BPM P-R Int : 158 ms QRS Dur : 090 ms QT Int : 432 ms P-R-T Axes : 024 -28 000 degrees QTc Int : 466 ms Normal sinus rhythm Normal ECG Confirmed by FRANCIS COPE, CAT ([id number]), writer editor SUSAN ANN ([id number]) on 12/13/2022 11:29:15 AM Referred By: ADILIA Confirmed By:SHAY BLANCO MD
[2022-12-08 14:58] LABS: Differential Indicated MANUAL DIFF; Hematocrit 32.5 % (40-54); Hemoglobin 10.9 g/dL (13.0-16.5); Mean Corp Hgb Conc 33.5 g/dL (32-36); Mean Corpuscular Hgb 31.1 pg (27.0-32.0); Mean Corpuscular Volume 92.9 fL (80-94); Mean Platelet Vol. 9.4 fl (6.2-12.0); POSITIVE COUNT YES; POSITIVE DIFFERENTIAL YES; POSITIVE MORPHOLOGY YES; Platelet Count 75 K/mm3 (150-450); RBC Distribution Width CV 14.9 % (11.6-14.6); RBC Distribution Width SD 50.8 fl (35.1-43.9); White Blood Count 4.5 K/mm3 (4.4-11.0)
--- NOTE | 2022-12-08 15:06 | RAD_ITS ---
STUDY: X-RAY CHEST REASON FOR EXAM: Male, 86 years old. hypotension r/o PNA TECHNIQUE: Single AP portable view of the chest. COMPARISON: 03/21/2020. FINDINGS: The lungs are clear and expanded. There is no demonstrated pleural abnormality. Normal size heart. Normal mediastinum and shreya. Normal visualized pulmonary arteries. Normal visualized aortic arch and descending thoracic aorta. Normal visualized thoracic spine. Normal visualized ribs, clavicles, and shoulders. There is no demonstrated abnormality of the visualized soft tissue structures of the upper abdomen. RAD/Chest 1 View (Portable) IMPRESSION: Normal x-ray examination of the chest. Electronically Signed: Jamal Mann MD at 16:09 EDT ,
[2022-12-08 15:12] LABS: International Normalized Ratio 1.2; Prothrombin Time (Protime)PT. 14.8 SECONDS (11.7-14.9)
[2022-12-08 15:13] LABS: AST(SGOT) 20 U/L (15-37); Alanine Aminotransfer ALT/SGPT 16 U/L (16-61); Albumin, Serum 3.2 g/dL (3.2-5.0); Alkaline Phosphatase 73 U/L (45-117); Anion Gap 6 (5-15); BUN 30 mg/dL (7-18); BUN/Creat Ratio 20.7 RATIO (10-20); Calcium,Total 8.2 mg/dL (8.5-10.1); Chloride 102 mmol/L (98-107); Creatinine, Serum 1.45 mg/dL (0.70-1.30); EST Glomerular Filtration Rate 49 mL/min (>60); Est Glom Filt Rate - Afr Amer 60 mL/min (>60); Globulin 3.1 g/dL (2.2-4.2); Glucose 135 mg/dL (74-106); Partial Thromboplast Time 31.6 Seconds (24.1-36.2); Potassium 3.3 mmol/L (3.5-5.1); Protein, Total 6.3 g/dL (6.4-8.2); Sodium Level 137 mmol/L (136-145)
[2022-12-08 15:24] LABS: Lactic Acid 0.9 mmol/L (0.4-1.9); Neutrophil-Band 2 % (0-5); Neutrophil-Segmented 15 % (47-70); Total Cells Counted 100 (MANUAL DIFF)
[2022-12-08 15:25] LABS: Lymphocyte 69 % (19-41); Metamyelocyte 8 % (0-1); Monocyte 1 % (0-10); Myelocyte 5 % (0-0); Platelet Estimate MOD DEC (ADEQ); Red Cell Morphology NORM C+C NORMAL (NORM C&C)
[2022-12-08 15:26] LABS: Absolute Neutrophil Count 0.8 X10^3/uL (2.0-7.7)
[2022-12-08] MEDS: 0.9% Normal Saline (1000mL) 1,000 ML 999 ML IV (15:33)
[2022-12-08 16:51] LABS: Color, Urine Yellow (Yellow); Glucose, Dipstick Normal (Normal); Ketone-Dipstick Negative (Negative); Leukocyte Esterase-Dipstick 500 /ul (Negative); Mucous, Urine 0 SEEN /hpf (<or=2+); Nitrite-Dipstick Negative (Negative); Occult Blood-Urine 150 /ul (Negative); Protein-Dipstick 15 mg/dl (Negative); Specific Gravity, Urine 1.015 (1.002-1.030); Squamous Epithelial Cells - UA 0 SEEN /hpf (0-5); Urine Bilirubin Dipstick Negative (Negative); Urine Clarity Clear (Clear); Urine Urobilinogen Normal (Normal)
[2022-12-08 16:57] LABS: Bacteria RARE /hpf (None Seen); Red Blood Cells-Urine 0-5 SEEN /hpf (0-5); White Blood Cells 5-10 SEEN /hpf (0-5)
[2022-12-08] MEDS: Potassium Chloride Oral Tablet 20 MEQ 40 MEQ PO (17:21)
[2022-12-08] MEDS: Ceftriaxone 1 GM/50 ML BAG IV (17:44)
--- NOTE | 2022-12-08 18:29 | HP.PCM.HOS_ITS ---
HPI - General General Date of Admission: 12/08/22 Date of Service: 12/08/22 Chief Complaint: Fever, fatigue, malaise. HPI Narrative The patient is an 86 y/o M w/ PMHx: CKD stage III unclear subtype, Chronic normocytic anemia, CAD s/p PCI, Infrarenal AAA, HTN, HLD, Hx Lymphoma, Dementia unclear type with unclear behavioral disturbance history, Hypothyroidism, BPH, Former tobacco use who presents to the [facility] ED on 12/08/22 with history of 2 to 3 days of increased fatigue and malaise and possibly poor oral intake prompting family to bring him to the PCP with blood pressure in the office reportedly 70s to 80s systolic with a fever the evening prior of 101.8 and upon PCP evaluation 100.8 although normalized initially upon ED arrival and improved the evening prior with Tylenol but given ongoing presentation prompted ED referral. Patient denies any recent URI type symptoms or any urinary symptoms including dysuria, frequency or retention. Work-up in the ED included T97.2, heart rate 72, BP 98/49, respiratory rate 16, 95% on room air and following IV fluids in the ED repeat BP 139/64, respiratory rate 20, 95% on room air with Tmax in the ED 99.2 of note, CBC with WBC 4.5, hemoglobin 10.9, MCV 92.9, platelets 75 with ANC 0.8 of note, unremarkable coags, CMP with potassium 3.3, BUN/creatinine 30/1.45, glucose 135, lactic acid 0.9, total bilirubin 1.30 otherwise [place] profile not marked appearing, urinalysis with specific remedy 1.015, protein 15, occult blood 150, negative nitrite, leukocyte Estrace 500 with only urine WBCs 5-10 with no urine bacteria noted at all, Urine culture pending per ED, blood culture x2 pending per ED, with no acute cardiopulmonary findings. In the ED patient ministered 40 mill equivalent p.o. potassium x1 as well as IV Rocephin and 1 L normal saline bolus. [facility] Medical History (Updated 12/08/22 @ 20:[address] 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 Gr manages cholesterol #90 tabs 05/24/18 [Rx Last Taken 03/09/20] carvedilol 3.125 mg tablet 3.125 mg PO BID bp 01/29/20 [History Last Taken 03/09/20] aspirin 81 mg tablet,delayed release 81 mg PO DAILY@0800 [facility] 03/09/20 [History Last Taken 03/09/20] losartan 25 mg tablet 25 mg PO DAILY bp #90 tabs 06/25/20 [Rx Last Taken Unknown] clopidogrel 75 mg tablet 75 mg PO DAILY 03/22/21 [History Last Taken Unknown] finasteride 5 mg tablet 5 mg PO DAILY 09/29/21 [History Last Taken Unknown] donepezil 5 mg tablet 5 mg PO DAILY 12/08/22 [History Last Taken Unknown] dutasteride 0.5 mg capsule 0.5 mg PO DAILY 12/08/22 [History Last Taken Unknown] oxybutynin chloride 10 mg tablet,extended release 24 hr 10 mg PO DAILY 12/08/22 [History Last Taken Unknown] Allergy/AdvReac Type Severity Reaction Status Date / Time Penicillins Allergy Hives Verified 12/08/22 15:29 tree and shrub pollen Allergy Other Verified 12/08/22 15:29 lisinopril AdvReac Mild cough Verified 12/08/22 15:29 Family History Father , age 39 from [place] CAD (coronary artery disease) Myocardial infarction Sudden cardiac Mother Diabetes Surgical History History of appendectomy History of left heart catheterization Presence of coronary angioplasty implant and graft (~02/22/16) Social History Smoking Status: Former smoker how long ago did patient quit smokin years ago alcohol intake: current alcohol intake frequency: a few times a week Alcohol type: beer substance use type: does not use caffeine: Yes Type: coffee Number of servings: 2 ROS Review of Systems ROS Unobtainable: other Details: Underlying dementia, unable to give appropriate ROS. Family reports increased fatigue, malaise, fever. Vital Signs Vital Signs Vital Signs: 12/08/22 13:12 12/08/22 15:27 12/08/22 15:27 Temperature 97.2 F L Temperature Source Temporal Pulse Rate 72 58 L Respiratory Rate 16 19 H Respiratory Effort Respiratory Pattern Blood Pressure 98/49 L 112/57 L Blood Pressure Mean 65 75 Pulse Ox 95 96 96 Oxygen Delivery Method Room Air Room Air Room Air 12/08/22 15:30 12/08/22 16:48 12/08/22 17:04 Temperature 98.0 F Temperature Source Oral Pulse Rate 58 L 59 L Respiratory Rate 27 H 13 Respiratory Effort Normal Non-Labored Respiratory Pattern Normal Blood Pressure 139/69 H 136/65 H Blood Pressure Mean 92 88 Pulse Ox 98 97 Oxygen Delivery Method Room Air Room Air 12/08/22 17:53 12/08/22 18:00 Temperature 98.7 F 98.7 F Temperature Source Oral Temporal Pulse Rate 60 75 Respiratory Rate 12 18 Respiratory Effort Respiratory Pattern Blood Pressure 141/66 H 158/92 H Blood Pressure Mean 91 114 Pulse Ox 96 98 Oxygen Delivery Method Room Air Room Air Weight Weight: 168 lb 10.458 oz Body Mass Index (BMI) 24.2 Physical Exam Narrative Physical Examination: General: Awake, alert, oriented to self and some recent events but does have underlying dementia, appears baseline per discussion with family, remains cooperative, hard of hearing, laying in the ED bed with no acute distress. Skin: Normal color, normal turgor, no icterus, no cyanosis except occasional very staged ecchymoses to the extremities especially. HEENT: AT/NC, EOMI, PERRLA, dry MM, no carotid bruits or JVD noted. Lungs: Diminished, greater bases, poor effort, no density distress, no rales, ronchi or wheezing. Heart: Regular rate and rhythm; no gallop, rub audible. Abdomen: Soft, NTTP, ND, hyperactive BS, no HSM. Extremities: No cyanosis, no clubbing, peripheral ankle edema. Neurological: Patient awake, alert, oriented as noted, cognitive function near baseline although does have underlying dementia with memory deficits of note; p upils equally reactive to light and accommodation, cranial nerves grossly normal, moving all 4 extremities, no focal deficits, strength moderately to severely global decrease secondary to acute presentation complicated by underlying comorbidities. Psychiatric: Affect appears flat, fatigued, no acute evidence of depressive or anxiety feelings. Results Lab / Micro Data 12/08/22 14:45 12/08/22 14:45 Labs: Laboratory Results - last 24 hr 12/08/22 14:45: WBC 4.5, RBC 3.50 L, Hgb 10.9 L, Hct 32.5 L, MCV 92.9, MCH 31.1, MCHC 33.5, RDW Std Deviation 50.8 H, RDW Coeff of [place] 14.9 H, Plt Count 75 L, MPV 9.4, Neut % (Auto) Not Reportable, Absolute Neuts (auto) 0.8 L, Absolute Lymphs (auto) 3.10, Total Counted 100, Neutrophils % (Manual) 15 L, Band Neutrophils % 2, Lymphocytes % (Manual) 69 H, Monocytes % (Manual) 1, Metamyelocytes % 8 H, Myelocytes % 5 H, Diff Path Review July, Platelet Estimate MOD DEC, RBC Morphology NORM C+C, PT 14.8, INR 1.2, APTT 31.6, Sodium 137, Potassium 3.3 L, Chloride 102, Carbon Dioxide 29.0, Anion Gap 6, BUN 30 H, Creatinine 1.45 H, Est GFR (MDRD) Af Amer 60, Est GFR (MDRD) Non-Af 49 L, BUN/Creatinine Ratio 20.7 H, Glucose 135 H, Lactic Acid 0.9, Calcium 8.2 L, Total Bilirubin 1.30 H, AST 20, ALT 16, Alkaline Phosphatase 73, Total Protein 6.3 L, Albumin 3.2, Globulin 3.1, Albumin/Globulin Ratio 1.0 12/08/22 16:45: Urine Color Yellow, Urine Clarity Clear, Urine pH 6.0, Ur Specific [place] 1.015, Urine Protein 15 H, Urine Glucose (UA) Normal, Urine Ketones Negative, Urine Occult Blood 150 H, Urine Nitrite Negative, Urine Bilirubin Negative, Urine Urobilinogen Normal, Ur Leukocyte Esterase 500 H, Urine RBC 0-5 SEEN, Urine WBC 5-10 SEEN, Ur Squamous Epith Cells 0 SEEN, Urine Bacteria RARE, Urine Mucus 0 SEEN Radiology Impression Chest X-Ray 09/21/23 15:06 IMPRESSION: Normal x-ray examination of the chest. Electronically Signed: Jamal Mann MD at 16:09 EDT , Assessment & Plan Assessment/Plan (1) SIRS (systemic inflammatory response syndrome): PLAN: Plan The patient is an 86 y/o M w/ PMHx: CKD stage III unclear subtype, Chronic normocytic anemia, CAD s/p PCI, Infrarenal AAA, HTN, HLD, Hx Lymphoma, Dementia unclear type with unclear behavioral disturbance history, Hypothyroidism, BPH, Former tobacco use who presents to the [facility] ED on 12/08/22 with history of 2 to 3 days of increased fatigue and malaise and possibly poor oral intake prompting family to bring him to the PCP with blood pressure in the office reportedly 70s to 80s systolic with a fever the evening prior of 101.8 and upon PCP evaluation 100.8 although normalized initially upon ED arrival and improved the evening prior with Tylenol but given ongoing presentation prompted ED referral. #1. SIRS with transient Hypotension, Fever of Possible UTI, but lower suspicion as noted #2: We will admit to medical surgical floor given transient hypotension upon presentation although clinically improved with IV fluid bolus x1, no marked WBC elevation, will obtain COVID PCR as well as respiratory viral panel, procalcitonin requested, Bld Cx x 2 also pending per ED, will continue IV Rocephin for possible UTI in the interim pending urine culture, maintain on fall and aspiration precautions, will continue judicious IV fluids with BP trending, PT/OT/case management consulted for discharge planning. #2. Lower Suspicion Acute Urinary Tract Infection: Patient with no recent dysuria or urinary frequency or retention but ED noted concern based on urinalysis for possible UTI and patient was dosed with IV Rocephin. Urinalysis with specific remedy 1.015, protein 15, occult blood 150 however negative nitrite and there is leukocyte Estrace 500 with urine WBCs 5-10 but no urine bacteria noted at all with urine culture pending. Although lower suspicion given fever until other source identified to be cautious we will maintain on IV Rocephin pending urine culture and if not marked will de-escalate off, continue IVFs, monitor I/Os. Bld cx x 2 obtained in the ED. #3. Acute kidney injury on CKD stage III unclear subtype: Secondary to suspected decreased intake with her malaise and fatigue over the last several days as noted. Admission BUN/Cr 30/1.45, prior baseline creatinine noted to be 0.9 thus an increase above 1.5 times baseline. Will continue to judiciously hydrate, hold nephrotoxic medications and repeat chemistry in AM. If no improvement would plan FeNa/renal ultrasound assessment. #4. Acute thrombocytopenia: Admission platelet 75, remotely had also been low but is noted but normalized since 02/2020, possibly reactive, awaiting COVID PCR as noted above, will repeat CBC in AM. #5. Hypokalemia: Admission K+ 3.3, magnesium level requested, supplementation given, repeat level in AM. #6. CAD: Status post PCI 02/22/2016 with history of remote STEMI we will continue patient home aspirin, temporally holding home Coreg as well as losartan regimen given BP low upon presentation, add back once appropriate, continue home statin therapy. #7. Chart reported history of lymphoma, history of bladder mass/? Bladder cancer: Unclear exact history, also bladder mass history noted with findings on CT 01/16/2020, status post remote resection and TURP, unclear if remission status has been achieved. Encourage outpatient continued follow-up as previously arranged. #8. Hypertension: Patient with hypotension upon presentation although improving now, will temporally hold hypertensive regimen and add back once appropriate. #9. Hyperlipidemia: We will continue patient home statin therapy. #10. Infrarenal AAA: Last noted CT imaging 01/16/2020 however it was without contrast with noted minimally dilated distal abdominal aorta measuring 2.6 cm in transverse dimension, continue to follow outpatient. #11. Chronic normocytic anemia: Admission hemoglobin 10.9, baseline appears 10- 11, stable, continue to trend. #12. Hypothyroidism: We will continue patient home levothyroxine regimen. #13. BPH: We will continue patient home dutasteride regimen, had previously been also on Flomax but this was discontinued per report. #14. Dementia, unclear to unclear behavioral disturbance history: Acute presentation maintain on fall and aspiration precautions, we will continue patient home donepezil regimen, PT/OT/correctional casework specialist consulted for discharge planning. #15. DVT prophylaxis: SCDs, defer chemoprophylaxis given significant acute t hrombocytopenia possibly reactive. #16. CODE status: Patient BREEZY is his daughter who is present. He does not have a living will in place but noted that if they are interested they can discuss this with case management/social work and they may assist in setting up. Discussed CODE status at length including difference between FULL code, DNR-CCA and DNR-CC status. Following discussions about the differences in these status, requested DNR-CCA, no intubation status. Advanced Care Planning Face to Face Time: 16 minutes. Charges/Coding Visit Charges Inpatient E&M: 44756 Init Hosp [facility] Procedures Hospitalists Procedures: 27767 Advncd Care Plan 30 Min
[2022-12-08 20:05] LABS: Magnesium 2.1 mg/dL (1.6-2.6)
[2022-12-08] MEDS: 0.9% Saline Lock 10 ML Syringe IV (22:05)
[2022-12-08] MEDS: 0.9% Normal Saline (1000mL) 1,000 ML 100 ML IV (22:05)
[2022-12-08] MEDS: Atorvastatin Calcium 40 MG Tablet PO (22:05)
[2022-12-08] MEDS: Menthol/Lanolin/Calamine/Znox 113 GM Tube 1 APPLIC TOPICAL (22:05)
[2022-12-08 23:14] LABS: Procalcitonin 0.18 ng/mL (0.00-0.09)
[2022-12-09 03:00] VITALS: BP 130/58; PULSE 71; RESP 18; TEMP 36.8; O2SAT 95
[2022-12-09 04:19] VITALS: BMI 24.3
--- NOTE | 2022-12-09 05:18 | NURSING ---
Upon arrival to [facility], pt had orders for a respiratory panel and COVID test. Family and pt. were not wearing masks upon arrival to unit. Education provided and this nurse provided masks for both of pt's daughters to wear as they walked through and out of the building for the night. Enhanced respiratory precautions maintained for patient and staff until COVID test was resulted as negative and after that time droplet precautions remained until respiratory panel result was negative.
[2022-12-09 06:29] LABS: Absolute Neutrophil Count 0.7 X10^3/uL (2.0-7.7); Basophil# 0.04 X10^3/uL; Basophil% 0.9 % (0-1); Eosinophil# 0.06 X10^3/uL; Eosinophils% 1.4 % (0-5); Hematocrit 29.3 % (40-54); Lymphocyte % 73.2 % (19-41); Mean Corp Hgb Conc 34.1 g/dL (32-36); Mean Corpuscular Hgb 31.6 pg (27.0-32.0); Mean Corpuscular Volume 92.7 fL (80-94); Mean Platelet Vol. 9.9 fl (6.2-12.0); Monocyte% 4.6 % (0-10); NRBC Flagged by Analyzer 0 % (0-5); Neutrophil # 0.72 X10^3/uL (2.7-7.7); Neutrophil % 16.5 % (47-70); POSITIVE COUNT YES; POSITIVE DIFFERENTIAL YES; POSITIVE MORPHOLOGY YES; Platelet Count 82 K/mm3 (150-450); RBC Distribution Width CV 14.7 % (11.6-14.6); RBC Distribution Width SD 50.6 fl (35.1-43.9); Red Blood Count 3.16 M/mm3 (4.6-6.2); White Blood Count 4.4 K/mm3 (4.4-11.0)
[2022-12-09 06:45] LABS: Differential Indicated SCAN CRITERIA MET
[2022-12-09 06:47] LABS: Anisocytosis 1+; Platelet Estimate MOD DEC (ADEQ)
[2022-12-09] MEDS: Levothyroxine 88 MCG Tablet PO (06:48)
[2022-12-09] MEDS: 0.9% Normal Saline (1000mL) 1,000 ML 100 ML IV (06:48)
[2022-12-09 06:56] LABS: ALB/GLOB Ratio 0.9 RATIO (0.9-2.4); AST(SGOT) 18 U/L (15-37); Alanine Aminotransfer ALT/SGPT 13 U/L (16-61); Albumin, Serum 2.7 g/dL (3.2-5.0); Alkaline Phosphatase 65 U/L (45-117); Anion Gap 2 (5-15); BUN 23 mg/dL (7-18); BUN/Creat Ratio 22.1 RATIO (10-20); Calcium,Total 7.7 mg/dL (8.5-10.1); Chloride 110 mmol/L (98-107); Creatinine, Serum 1.04 mg/dL (0.70-1.30); EST Glomerular Filtration Rate 72 mL/min (>60); Est Glom Filt Rate - Afr Amer 87 mL/min (>60); Estimated Creatinine Clearance 54.59 ml/min; Glucose 155 mg/dL (74-106); Potassium 3.7 mmol/L (3.5-5.1); Protein, Total 5.7 g/dL (6.4-8.2); Sodium Level 140 mmol/L (136-145)
[2022-12-09 08:35] VITALS: BP 146/67; PULSE 66; RESP 18; TEMP 36.9; O2SAT 96
--- NOTE | 2022-12-09 08:35 | PN.HOSP_ITS ---
Reason for Visit Reason for Visit: Diagnoses Systemic inflammatory response syndrome (SIRS) of non-infectious origin without acute organ dysfunction (12/08/22) Objective Data Objective Data Vital Signs: Vital Signs Temp Pulse Resp BP Pulse Ox O2 Del Method 98.3 F 71 18 130/58 H 95 Room Air 12/09/22 03:00 12/09/22 03:00 12/09/22 03:00 12/09/22 03:00 12/09/22 03:00 12/09/22 03:17 Oxygen Delivery Method Room Air Weight: 77.111 kg Body Mass Index (BMI) 24.3 Intake & Output: Intake and Output for Last 24 Hours 12/07/22 12/08/22 12/09/22 23:59 23:59 23:59 Intake Total 1050 / 1350 1171.67 / 1171.67 Balance 1050 / 1350 1171.67 / 1171.67 Lab / Micro Data 12/09/22 06:05 12/09/22 06:05 Labs: Laboratory Results - last 24 hr 12/08/22 14:45: WBC 4.5, RBC 3.50 L, Hgb 10.9 L, Hct 32.5 L, MCV 92.9, MCH 31.1, MCHC 33.5, RDW Std Deviation 50.8 H, RDW Coeff of [place] 14.9 H, Plt Count 75 L, MPV 9.4, Neut % (Auto) Not Reportable, Absolute Neuts (auto) 0.8 L, Absolute Lymphs (auto) 3.10, Total Counted 100, Neutrophils % (Manual) 15 L, Band Neutrophils % 2, Lymphocytes % (Manual) 69 H, Monocytes % (Manual) 1, Metamyelocytes % 8 H, Myelocytes % 5 H, Diff Path Review May foll, Platelet Estimate MOD DEC, RBC Morphology NORM C+C, PT 14.8, INR 1.2, APTT 31.6, Sodium 137, Potassium 3.3 L, Chloride 102, Carbon Dioxide 29.0, Anion Gap 6, BUN 30 H, Creatinine 1.45 H, Est GFR (MDRD) Af Amer 60, Est GFR (MDRD) Non-Af 49 L, BUN/Creatinine Ratio 20.7 H, Glucose 135 H, Lactic Acid 0.9, Calcium 8.2 L, Magnesium 2.1, Total Bilirubin 1.30 H, AST 20, ALT 16, Alkaline Phosphatase 73, Total Protein 6.3 L, Albumin 3.2, Globulin 3.1, Albumin/Globulin Ratio 1.0 12/08/22 16:45: Urine Color Yellow, Urine Clarity Clear, Urine pH 6.0, Ur Specific [place] 1.015, Urine Protein 15 H, Urine Glucose (UA) Normal, Urine Ketones Negative, Urine Occult Blood 150 H, Urine Nitrite Negative, Urine Bilirubin Negative, Urine Urobilinogen Normal, Ur Leukocyte Esterase 500 H, Urine RBC 0-5 SEEN, Urine WBC 5-10 SEEN, Ur Squamous Epith Cells 0 SEEN, Urine Bacteria RARE, Urine Mucus 0 SEEN 12/08/22 22:15: Procalcitonin 0.18 H 12/09/22 06:05: WBC 4.4, RBC 3.16 L, Hgb 10.0 L, Hct 29.3 L, MCV 92.7, MCH 31.6, MCHC 34.1, RDW Std Deviation 50.6 H, RDW Coeff of [place] 14.7 H, Plt Count 82 L, MPV 9.9, Immature Gran % (Auto) 3.400 H, Neut % (Auto) 16.5 L, Lymph % (Auto) 73.2 H, [place] % (Auto) 4.6, Eos % (Auto) 1.4, Baso % (Auto) 0.9, Absolute Neuts (auto) 0.7 L, Absolute Lymphs (auto) 3.20, Nucleated RBC % 0, Platelet Estimate MOD DEC, Anisocytosis 1+, Sodium 140, Potassium 3.7, Chloride 110 H, Carbon Dioxide 28.0, Anion Gap 2 L, BUN 23 H, Creatinine 1.04, Estim Creat Clear Calc 54.59, Est GFR (MDRD) Af Amer 87, Est GFR (MDRD) Non-Af 72, BUN/Creatinine Ratio 22.1 H, Glucose 155 H, Calcium 7.7 L, Total Bilirubin 0.50, AST 18, ALT 13 L, Alkaline Phosphatase 65, Total Protein 5.7 L, Albumin 2.7 L, Globulin 3.0, Albumin/Globulin Ratio 0.9 Micro: Microbiology 12/08/22 23:10 Mucosa - Nose Respiratory Panel (PCR) - Final 12/08/22 23:10 Mucosa - Nasopharyngeal Coronavirus COVID-19 PCR - Final Radiography Diagnostic Testing: Radiology Impression Chest X-Ray 12/08/22 15:06 IMPRESSION: Normal x-ray examination of the chest. Electronically Signed: Jamal Mann MD at 16:09 EDT , Physical Exam Narrative Physical Examination: General: Awake, alert, oriented to self and some recent events but does have underlying dementia, appears baseline per discussion with family, remains cooperative, hard of hearing, laying in the ED bed with no acute distress. Skin: Normal color, normal turgor, no icterus, no cyanosis except occasional very staged ecchymoses to the extremities especially. HEENT: AT/NC, EOMI, PERRLA, dry MM, no carotid bruits or JVD noted. Lungs: Diminished, greater bases, poor effort, no density distress, no rales, ronchi or wheezing. Heart: Regular rate and rhythm; no gallop, rub audible. Abdomen: Soft, NTTP, ND, hyperactive BS, no HSM. Extremities: No cyanosis, no clubbing, peripheral ankle edema. Neurological: Patient awake, alert, oriented as noted, cognitive function near baseline although does have underlying dementia with memory deficits of note; pupils equally reactive to light and accommodation, cranial nerves grossly normal, moving all 4 extremities, no focal deficits, strength moderately to severely global decrease secondary to acute presentation complicated by underlying comorbidities. Psychiatric: Affect appears flat, fatigued, no acute evidence of depressive or anxiety feelings. Assessment & Plan Assessment/Plan (1) SIRS (systemic inflammatory response syndrome): PLAN: Plan The patient is an 86 y/o M w/ PMHx: CKD stage III unclear subtype, Chronic normocytic anemia, CAD s/p PCI, Infrarenal AAA, HTN, HLD, Hx Lymphoma, Dementia unclear type with unclear behavioral disturbance history, Hypothyroidism, BPH, Former tobacco use who presents to the [facility] ED on 12/08/22 with history of 2 to 3 days of increased fatigue and malaise and possibly poor oral intake prompting family to bring him to the PCP with blood pressure in the office reportedly 70s to 80s systolic with a fever the evening prior of 101.8 and upon PCP evaluation 100.8 although normalized initially upon ED arrival and improved the evening prior with Tylenol but given ongoing presentation prompted ED referral. #1. SIRS with transient Hypotension, Fever of Possible UTI, but lower suspicion as noted #2: We will admit to medical surgical floor given transient hypotension upon presentation although clinically improved with IV fluid bolus x1, no marked WBC elevation, will obtain COVID PCR as well as respiratory viral panel, procalcitonin requested, Bld Cx x 2 also pending per ED, will continue IV Rocephin for possible UTI in the interim pending urine culture, maintain on fall and aspiration precautions, will continue judicious IV fluids with BP trending, PT/OT/case management consulted for discharge planning. #2. Lower Suspicion Acute Urinary Tract Infection: Patient with no recent dysuria or urinary frequency or retention but ED noted concern based on urinalysis for possible UTI and patient was dosed with IV Rocephin. Urinalysis with specific remedy 1.015, protein 15, occult blood 150 however negative nitrite and there is leukocyte Estrace 500 with urine WBCs 5-10 but no urine bacteria noted at all with urine culture pending. Although lower suspicion given fever until other source identified to be cautious we will maintain on IV Rocephin pending urine culture and if not marked will de-escalate off, continue IVFs, monitor I/Os. Bld cx x 2 obtained in the ED. #3. Acute kidney injury on CKD stage III unclear subtype: Secondary to suspected decreased intake with her malaise and fatigue over the last several days as noted. Admission BUN/Cr 30/1.45, prior baseline creatinine noted to be 0.9 thus an increase above 1.5 times baseline. Will continue to judiciously hydrate, hold nephrotoxic medications and repeat chemistry in AM. If no improvement would plan FeNa/renal ultrasound assessment. #4. Acute thrombocytopenia: Admission platelet 75, remotely had also been low but is noted but normalized since 02/2020, possibly reactive, awaiting COVID PCR as noted above, will repeat CBC in AM. #5. Hypokalemia: Admission K+ 3.3, magnesium level requested, supplementation given, repeat level in AM. #6. CAD: Status post PCI 02/22/2016 with history of remote STEMI we will continue patient home aspirin, temporally holding home Coreg as well as losartan regimen given BP low upon presentation, add back once appropriate, continue home statin therapy. #7. Chart reported history of lymphoma, history of bladder mass/? Bladder cancer: Unclear exact history, also bladder mass history noted with findings on CT 01/16/2020, status post remote resection and TURP, unclear if remission status has been achieved. Encourage outpatient continued follow-up as previously arranged. #8. Hypertension: Patient with hypotension upon presentation although improving now, will temporally hold hypertensive regimen and add back once appropriate. #9. Hyperlipidemia: We will continue patient home statin therapy. #10. Infrarenal AAA: Last noted CT imaging 01/16/2020 however it was without contrast with noted minimally dilated distal abdominal aorta measuring 2.6 cm in transverse dimension, continue to follow outpatient. #11. Chronic normocytic anemia: Admission hemoglobin 10.9, baseline appears 10- 11, stable, continue to trend. #12. Hypothyroidism: We will continue patient home levothyroxine regimen. #13. BPH: We will continue patient home dutasteride regimen, had previously been also on Flomax but this was discontinued per report. #14. Dementia, unclear to unclear behavioral disturbance history: Acute presentation maintain on fall and aspiration precautions, we will continue pat ient home donepezil regimen, PT/OT/field nurse case manager consulted for discharge planning. #15. DVT prophylaxis: SCDs, defer chemoprophylaxis given significant acute thrombocytopenia possibly reactive. #16. CODE status: Patient BREEZY is his daughter who is present. He does not have a living will in place but noted that if they are interested they can discuss this with case management/social work and they may assist in setting up. Discussed CODE status at length including difference between FULL code, DNR-CCA and DNR-CC status. Following discussions about the differences in these status, requested DNR-CCA, no intubation status. Advanced Care Planning Face to Face Time: 16 minutes.
--- NOTE | 2022-12-09 08:35 | PCM.PN.HOSP ---
Reason for Visit Reason for Visit: Diagnoses Systemic inflammatory response syndrome (SIRS) of non-infectious origin without acute organ dysfunction (12/08/22) Subjective Subjective Patient is an 86-year-old gentleman sent to the ED by primary care physician on account of fever with relatively low blood pressure and assessment of acute cystitis made admitted to regular nursing floor for further management Objective Data Objective Data Vital Signs: Vital Signs Temp Pulse Resp BP Pulse Ox O2 Del Method 98.3 F 71 18 130/58 H 95 Room Air 12/09/22 03:00 12/09/22 03:00 12/09/22 03:00 12/09/22 03:00 12/09/22 03:00 12/09/22 03:17 Oxygen Delivery Method Room Air Weight: 77.111 kg Body Mass Index (BMI) 24.3 Intake & Output: Intake and Output for Last 24 Hours 12/07/22 12/08/22 12/09/22 23:59 23:59 23:59 Intake Total 1050 / 1350 1171.67 / 1171.67 Balance 1050 / 1350 1171.67 / 1171.67 Lab / Micro Data 12/09/22 06:05 12/09/22 06:05 Labs: Laboratory Results - last 24 hr 12/08/22 14:45: WBC 4.5, RBC 3.50 L, Hgb 10.9 L, Hct 32.5 L, MCV 92.9, MCH 31.1, MCHC 33.5, RDW Std Deviation 50.8 H, RDW Coeff of [place] 14.9 H, Plt Count 75 L, MPV 9.4, Neut % (Auto) Not Reportable, Absolute Neuts (auto) 0.8 L, Absolute Lymphs (auto) 3.10, Total Counted 100, Neutrophils % (Manual) 15 L, Band Neutrophils % 2, Lymphocytes % (Manual) 69 H, Monocytes % (Manual) 1, Metamyelocytes % 8 H, Myelocytes % 5 H, Diff Path Review May , Platelet Estimate MOD DEC, RBC Morphology NORM C+C, PT 14.8, INR 1.2, APTT 31.6, Sodium 137, Potassium 3.3 L, Chloride 102, Carbon Dioxide 29.0, Anion Gap 6, BUN 30 H, Creatinine 1.45 H, Est GFR (MDRD) Af Amer 60, Est GFR (MDRD) Non-Af 49 L, BUN/Creatinine Ratio 20.7 H, Glucose 135 H, Lactic Acid 0.9, Calcium 8.2 L, Magnesium 2.1, Total Bilirubin 1.30 H, AST 20, ALT 16, Alkaline Phosphatase 73, Total Protein 6.3 L, Albumin 3.2, Globulin 3.1, Albumin/Globulin Ratio 1.0 12/08/22 16:45: Urine Color Yellow, Urine Clarity Clear, Urine pH 6.0, Ur Specific [place] 1.015, Urine Protein 15 H, Urine Glucose (UA) Normal, Urine Ketones Negative, Urine Occult Blood 150 H, Urine Nitrite Negative, Urine Bilirubin Negative, Urine Urobilinogen Normal, Ur Leukocyte Esterase 500 H, Urine RBC 0-5 SEEN, Urine WBC 5-10 SEEN, Ur Squamous Epith Cells 0 SEEN, Urine Bacteria RARE, Urine Mucus 0 SEEN 12/08/22 22:15: Procalcitonin 0.18 H 12/09/22 06:05: WBC 4.4, RBC 3.16 L, Hgb 10.0 L, Hct 29.3 L, MCV 92.7, MCH 31.6, MCHC 34.1, RDW Std Deviation 50.6 H, RDW Coeff of [place] 14.7 H, Plt Count 82 L, MPV 9.9, Immature Gran % (Auto) 3.400 H, Neut % (Auto) 16.5 L, Lymph % (Auto) 73.2 H, [place] % (Auto) 4.6, Eos % (Auto) 1.4, Baso % (Auto) 0.9, Absolute Neuts (auto) 0.7 L, Absolute Lymphs (auto) 3.20, Nucleated RBC % 0, Platelet Estimate MOD DEC, Anisocytosis 1+, Sodium 140, Potassium 3.7, Chloride 110 H, Carbon Dioxide 28.0, Anion Gap 2 L, BUN 23 H, Creatinine 1.04, Estim Creat Clear Calc 54.59, Est GFR (MDRD) Af Amer 87, Est GFR (MDRD) Non-Af 72, BUN/Creatinine Ratio 22.1 H, Glucose 155 H, Calcium 7.7 L, Total Bilirubin 0.50, AST 18, ALT 13 L, Alkaline Phosphatase 65, Total Protein 5.7 L, Albumin 2.7 L, Globulin 3.0, Albumin/Globulin Ratio 0.9 Micro: Microbiology 12/08/22 23:10 Mucosa - Nose Respiratory Panel (PCR) - Final 12/08/22 23:10 Mucosa - Nasopharyngeal Coronavirus COVID-19 PCR - Final Radiography Diagnostic Testing: Radiology Impression Chest X-Ray 12/08/22 15:06 IMPRESSION: Normal x-ray examination of the chest. Electronically Signed: Jamal Mann MD at 16:09 EDT , Physical Exam Narrative GENERAL: cooperative HEENT: Atraumatic; normocephalic EYES; Anicteric, Normal Conjunctiva NECK; supple, normal thyroid, RESPIRATORY: Diminished to auscultation CARDIOVASCULAR: Regular S1 S2, GI: soft, normoactive bowel sounds, : No Renal angle tenderness; EXTREMITIES: No edema, no clubbing, MUSCULOSKELETAL: no muscle wasting NEURO: Awake; no lateralizing signs. SKIN: No Rash PSYCH; Flat affect Assessment & Plan Assessment/Plan (1) SIRS (systemic inflammatory response syndrome): PLAN: Plan Patient is an 86-year-old gentleman sent to the ED by primary care physician on account of fever with relatively low blood pressure and assessment of acute cystitis made admitted to regular nursing floor for further management 1. Acute cystitis ? Admitted to regular nursing floor cultures sent patient started on Rocephin 2. Relative hypotension ? Patient admission blood pressure was 98/49 resuscitated with IV fluid blood pressure as of this a.m. 146/67 3. Essential hypertension ? Patient presented with hypotension antihypertensives held 4. Coronary artery disease ? With previous intervention with PCI. Patient currently remains on guideline directed medical therapy 5. Hypothyroidism - Patient is on levothyroxine home dose continued 6. Dyslipidemia -Patient is on statin therapy, continued at home dose 7. BPH ? Patient is on dutasteride 8. Hypokalemia ? Corrected per protocol repeat labs ordered for eval 9. Thrombocytopenia ? Etiology not clear monitoring with daily CBC with differential 10. Acute renal failure ? Patient creatinine admission was 1.45 rehydrated creatinine down to 1.04. Baseline creatinine 0.98 11. Dementia ? Patient is on donepezil continue 12. Infrarenal AAA ? Being monitored by PCP 12. Anemia - Secondary to chronic disorder monitoring H&H and transfuse if patient becomes symptomatic or hemoglobin falls below 7 13. DVT prophylaxis ? SCDs for now chemoprophylaxis avoided given patient relatively low platelet count Time spent in the patient's overall evaluation,decision-making process, review of diagnostic data, adjustment of management, discussion with other providers, nursing nursing and ancillary staff involved in patient's care documentation, 50 Minutes Charges/Coding Visit Charges Inpatient E&M: 10843 [facility] Hosp L3
[2022-12-09] MEDS: Menthol/Lanolin/Calamine/Znox 113 GM Tube 1 APPLIC TOPICAL (08:41)
[2022-12-09] MEDS: Aspirin E.C. 81 MG Tablet PO (08:41)
[2022-12-09] MEDS: Finasteride 5 MG Tablet PO (08:41)
[2022-12-09] MEDS: Tolterodine Tartrate 2 MG CAP.SA PO (08:41)
[2022-12-09] MEDS: Donepezil HCl 5 MG Tablet PO (08:43)
--- NOTE | 2022-12-09 11:42 | PCM.DC.SUM ---
Providers Date of Admission: 12/08/22 Date of Discharge: 12/09/22 Primary Care Physician: Dr. Wagner Gr MD Reason For Visit: SIRS, ? UTI, RACHEL Diagnosis Discharge Diagnosis (1) SIRS (systemic inflammatory response syndrome): Status: Acute Code(s): R65.10 - Systemic inflammatory response syndrome (SIRS) of non-infectious origin without acute organ dysfunction Plan Patient is an 86-year-old gentleman sent to the ED by primary care physician on account of fever with relatively low blood pressure and assessment of acute cystitis made admitted to regular nursing floor for further management 1. Acute cystitis ? Admitted to regular nursing floor cultures sent patient started on Rocephin 2. Relative hypotension ? Patient admission blood pressure was 98/49 resuscitated with IV fluid blood pressure as of this a.m. 146/67 3. Essential hypertension ? Patient presented with hypotension antihypertensives held 4. Coronary artery disease ? With previous intervention with PCI. Patient currently remains on guideline directed medical therapy 5. Hypothyroidism - Patient is on levothyroxine home dose continued 6. Dyslipidemia -Patient is on statin therapy, continued at home dose 7. BPH ? Patient is on dutasteride 8. Hypokalemia ? Corrected per protocol repeat labs ordered for eval 9. Thrombocytopenia ? Etiology not clear monitoring with daily CBC with differential 10. Acute renal failure ? Patient creatinine admission was 1.45 rehydrated creatinine down to 1.04. Baseline creatinine 0.98 11. Dementia ? Patient is on donepezil continue 12. Infrarenal AAA ? Being monitored by PCP 12. Anemia - Secondary to chronic disorder monitoring H&H and transfuse if patient becomes symptomatic or hemoglobin falls below 7 13. DVT prophylaxis ? SCDs for now chemoprophylaxis avoided given patient relatively low platelet count Time spent in the patient's overall evaluation,decision-making process, review of diagnostic data, adjustment of management, discussion with other providers, nursing nursing and ancillary staff involved in patient's care documentation, 50 Minutes Medications at Discharge Home Medications levothyroxine 75 mcg tablet 88 mcg PO DAILY thyroid 04/23/18 atorvastatin 40 mg tablet [address] Gr manages cholesterol #90 tabs 05/24/18 carvedilol 3.125 mg tablet 3.125 mg PO BID bp 01/29/20 aspirin 81 mg tablet,delayed release 81 mg PO DAILY@0800 [facility] 03/09/20 clopidogrel 75 mg tablet 75 mg PO DAILY 03/22/21 finasteride 5 mg tablet 5 mg PO DAILY 09/29/21 donepezil 5 mg tablet 5 mg PO DAILY 12/08/22 dutasteride 0.5 mg capsule 0.5 mg PO DAILY 12/08/22 oxybutynin chloride 10 mg tablet,extended release 24 hr 10 mg PO DAILY 12/08/22 cefdinir 300 mg capsule 300 mg PO BID #10 caps 12/09/22 Hospital Course Operations None Summary of Care Provided Minutes Spent on Discharge: 35 Physical Exam Narrative GENERAL: cooperative HEENT: Atraumatic; normocephalic EYES; Anicteric, Normal Conjunctiva NECK; supple, normal thyroid, RESPIRATORY: Diminished to auscultation CARDIOVASCULAR: Regular S1 S2, GI: soft, normoactive bowel sounds, : No Renal angle tenderness; EXTREMITIES: No edema, no clubbing, MUSCULOSKELETAL: no muscle wasting NEURO: Awake; no lateralizing signs. SKIN: No Rash PSYCH; Flat affect Weight / BMI Weight Weight: 77.111 kg Body Mass Index (BMI) 24.3 ABG / Lab / Microbiology Data 12/09/22 06:05 12/09/22 06:05 Laboratory: Laboratory Results - last 24 hr 12/08/22 14:45: WBC 4.5, RBC 3.50 L, Hgb 10.9 L, Hct 32.5 L, MCV 92.9, MCH 31.1, MCHC 33.5, RDW Std Deviation 50.8 H, RDW Coeff of [place] 14.9 H, Plt Count 75 L, MPV 9.4, Neut % (Auto) Not Reportable, Absolute Neuts (auto) 0.8 L, Absolute Lymphs (auto) 3.10, Total Counted 100, Neutrophils % (Manual) 15 L, Band Neutrophils % 2, Lymphocytes % (Manual) 69 H, Monocytes % (Manual) 1, Metamyelocytes % 8 H, Myelocytes % 5 H, Diff Path Review July, Platelet Estimate MOD DEC, RBC Morphology NORM C+C, PT 14.8, INR 1.2, APTT 31.6, Sodium 137, Potassium 3.3 L, Chloride 102, Carbon Dioxide 29.0, Anion Gap 6, BUN 30 H, Creatinine 1.45 H, Est GFR (MDRD) Af Amer 60, Est GFR (MDRD) Non-Af 49 L, BUN/Creatinine Ratio 20.7 H, Glucose 135 H, Lactic Acid 0.9, Calcium 8.2 L, Magnesium 2.1, Total Bilirubin 1.30 H, AST 20, ALT 16, Alkaline Phosphatase 73, Total Protein 6.3 L, Albumin 3.2, Globulin 3.1, Albumin/Globulin Ratio 1.0 12/08/22 16:45: Urine Color Yellow, Urine Clarity Clear, Urine pH 6.0, Ur Specific [place] 1.015, Urine Protein 15 H, Urine Glucose (UA) Normal, Urine Ketones Negative, Urine Occult Blood 150 H, Urine Nitrite Negative, Urine Bilirubin Negative, Urine Urobilinogen Normal, Ur Leukocyte Esterase 500 H, Urine RBC 0-5 SEEN, Urine WBC 5-10 SEEN, Ur Squamous Epith Cells 0 SEEN, Urine Bacteria RARE, Urine Mucus 0 SEEN 12/08/22 22:15: Procalcitonin 0.18 H 12/09/22 06:05: WBC 4.4, RBC 3.16 L, Hgb 10.0 L, Hct 29.3 L, MCV 92.7, MCH 31.6, MCHC 34.1, RDW Std Deviation 50.6 H, RDW Coeff of [place] 14.7 H, Plt Count 82 L, MPV 9.9, Immature Gran % (Auto) 3.400 H, Neut % (Auto) 16.5 L, Lymph % (Auto) 73.2 H, [place] % (Auto) 4.6, Eos % (Auto) 1.4, Baso % (Auto) 0.9, Absolute Neuts (auto) 0.7 L, Absolute Lymphs (auto) 3.20, Nucleated RBC % 0, Platelet Estimate MOD DEC, Anisocytosis 1+, Sodium 140, Potassium 3.7, Chloride 110 H, Carbon Dioxide 28.0, Anion Gap 2 L, BUN 23 H, Creatinine 1.04, Estim Creat Clear Calc 54.59, Est GFR (MDRD) Af Amer 87, Est GFR (MDRD) Non-Af 72, BUN/Creatinine Ratio 22.1 H, Glucose 155 H, Calcium 7.7 L, Total Bilirubin 0.50, AST 18, ALT 13 L, Alkaline Phosphatase 65, Total Protein 5.7 L, Albumin 2.7 L, Globulin 3.0, Albumin/Globulin Ratio 0.9 Microbiology: Microbiology 12/08/22 23:10 Mucosa - Nose Respiratory Panel (PCR) - Final 12/08/22 23:10 Mucosa - Nasopharyngeal Coronavirus COVID-19 PCR - Final Radiography Diagnostic Testing: Radiology Impression Chest X-Ray 12/08/22 15:06 IMPRESSION: Normal x-ray examination of the chest. Electronically Signed: Jamal Mann MD at 16:09 EDT , D/C Instructions Discharge Diet: No restrictions Discharge Activity: Return to Normal Activity Call your doctor if you observe: Fever of 101 or Higher, Shortness of breath, Fainting spells and Chest pain Meaningful Use Info Meaningful Use Diagnoses (Choose all that apply): None applicable Discharge Plan Admission Admit Date/Time: 12/08/22 18:32 Attending Provider: Lokesh Berry Primary Care Provider: Wagner Gr Consulting Providers: Madelaine Herrera Discharge Orders/Prescriptions Prescriptions: New cefdinir 300 mg capsule 300 mg PO BID Qty: 10 0RF Continued levothyroxine 75 mcg tablet 88 mcg PO DAILY clopidogrel 75 mg tablet 75 mg PO DAILY Hold Instructions: Pt has been DC'd finasteride 5 mg tablet 5 mg PO DAILY Hold Instructions: Pt has been DC'd Patient Comments: TAKE 1 TABLET BY MOUTHTONCE DAILY carvedilol 3.125 MG tablet 3.125 mg PO BID aspirin 81 MG tablet 81 mg PO DAILY@0800 oxybutynin chloride 10 mg tablet extended release 24hr 10 mg PO DAILY Patient Comments: TAKE 1 TABLET BY MOUTH)ONCE DAILY dutasteride 0.5 mg capsule 0.5 mg PO DAILY donepezil 5 mg tablet 5 mg PO DAILY atorvastatin 40 mg tablet 40 mg PO QHS Qty: 90 3RF Discontinued losartan 25 mg tablet 25 mg PO DAILY Qty: 90 3RF Referrals / Follow Up: Wagner Gr MD [Primary Care Provider] - Within 1 Week Disposition Disposition (needs filled in before D/C Order can be placed): Home, Self Care Charges/Coding Visit Charges Inpatient E&M: 21368 Disch Hosp >30min
--- NOTE | 2022-12-09 12:16 | CASEMGMT ---
FREDI MEDINA into pt room, pt sitting up in chair and dtr at bedside. Pt states he feels safe to go home, dtr agrees. Dtr states pt has dementia. He did have a difficult time telling FREDI MEDINA how he gets his meals. Pt dtr Jennifer comes daily for lunch and pt gets his own cereal in the mornings. Pt dtr states pt is at baseline and that the dtrs check in on him frequently. Dtrs plan to stay with pt through the weekend. Pt drives and gets his own groceries. He is able to bathe and dress himself. Currently he walks indep. Pt did know if he needed help at home to call 911. Pt and dtr deny any homegoing needs.
--- NOTE | 2022-12-09 12:37 | PHA.DC_ITS ---
Pharmacy [facility] has performed discharge medication reconciliation and counseling for this patient. The patient's discharge medication list was reviewed for discrepancies and discrepancies were resolved. The patient was counseled on the following discharge medications and changes in medications for homegoing were reviewed. The Reason for Use, instructions for use, and potential side effects were reviewed for all new medications. The patient's questions regarding all of their medications were answered. 1. Cefdinir 300 mg PO BID x 5 days The patient was able to verbally demonstrate an understanding of their discharge medications. Medications at Discharge Home Medications levothyroxine 75 mcg tablet 88 mcg PO DAILY thyroid 04/23/18 atorvastatin 40 mg tablet [address] Gr manages cholesterol #90 tabs 05/24/18 carvedilol 3.125 mg tablet 3.125 mg PO BID bp 01/29/20 aspirin 81 mg tablet,delayed release 81 mg PO DAILY@0800 [facility] 03/09/20 clopidogrel 75 mg tablet 75 mg PO DAILY 03/22/21 finasteride 5 mg tablet 5 mg PO DAILY 09/29/21 donepezil 5 mg tablet 5 mg PO DAILY 12/08/22 dutasteride 0.5 mg capsule 0.5 mg PO DAILY 12/08/22 oxybutynin chloride 10 mg tablet,extended release 24 hr 10 mg PO DAILY 12/08/22 cefdinir 300 mg capsule 300 mg PO BID #10 caps 12/09/22
--- NOTE | 2022-12-09 12:43 | CASEMGMT ---
Social Work SW met with pt and daughter to discuss advance directives.? Pt's daughter confirms she has completed a living will and health care POA naming dgt Elena Ness.? Dgt notified that documents are not on file at [facility] and SW requested they be brought in for scanning into the EMR.? CAMILA Jaquez
[2022-12-12 08:48] LABS: Pathologist Review Reviewed
== END 2022-12-09 14:23 | disposition home or self-care (01) ==
LOC: ED 18:31 → MS3 18:51
PROVIDERS: Admitting Provider Family Medicine; Emergency Provider Emergency Medicine; PCP Family Medicine; Visit Provider Internal Medicine
DX: N30.00 Acute cystitis without hematuria (principal); N17.9 Acute kidney failure, unspecified; D69.6 Thrombocytopenia, unspecified; E11.9 Type 2 diabetes mellitus without complications; N18.30 Chronic kidney disease, stage 3 unspecified; E78.00 Pure hypercholesterolemia, unspecified; I12.9 Hypertensive chronic kidney disease with stage 1 through stage 4 chronic kidney disease, or unspecified chronic kidney disease; Z87.891 Personal history of nicotine dependence; I25.10 Atherosclerotic heart disease of native coronary artery without angina pectoris; I95.9 Hypotension, unspecified; Z79.82 Long term (current) use of aspirin; Z86.16 Personal history of COVID-19; E87.6 Hypokalemia; Z79.899 Other long term (current) drug therapy; Z79.890 Hormone replacement therapy; E03.9 Hypothyroidism, unspecified; N40.0 Benign prostatic hyperplasia without lower urinary tract symptoms; D63.8 Anemia in other chronic diseases classified elsewhere
CPT/HCPCS: 36415; 71045; 80053; 81001; 83605; 83735; 84145; 85025; 85610; 85730; 87040; 87077; 87086; 87088; 87186; 87633; 87635; 93005; 96361; 96365; 99221; 99285; J7030; A4216; G0378

== ENCOUNTER 2022-12-19 19:56 | Emergency (ER) | payer MEDICARE, SELFPAY ==
[2022-12-19 19:58] VITALS: BP 142/64; PULSE 58; RESP 18; TEMP 36.3; O2SAT 99; BMI 25.5
--- NOTE | 2022-12-19 20:28 | CT_ITS ---
STUDY: CT ABDOMEN AND PELVIS WITH CONTRAST REASON FOR EXAM: Male, 87 years old. abdominal pain RADIATION DOSAGE (If Supplied By Facility): CTDIvol = ( 16.53 ) mGy, DLP = ( 1173.89 ) mGycm TECHNIQUE: Transaxial images were obtained from the dome of the diaphragm to the symphysis pubis without oral contrast. IV 100mL Isovue-300 was administered. Sagittal and coronal images were reconstructed. Individualized dose optimization techniques were used for this CT. COMPARISON: January 16, 2020 FINDINGS: Diffuse interstitial serpiginous changes in the lower lobes.. Heart is enlarged and there is mild coronary artery calcification. Bilateral axillary adenopathy is observed Normal liver. Normal gallbladder and extrahepatic biliary system. Mild splenic enlargement.. Normal pancreas. Normal bilateral adrenal glands. No evidence for renal obstruction. There is a small left renal cyst. Normal visualized stomach. There is a large nonobstructing lipomatous density within the post bulbar duodenum Nonspecific ileus diffuse fecal retention in colon.. Appendix not visualized status post appendectomy. Atherosclerotic changes of aorta with mild aneurysmal dilatation measuring approximately 2.95 cm. Normal inferior vena cava. There are enlarged periaortic, aortocaval, common iliac, internal and external iliac nodes Mildly enlarged mesenteric nodes. Normal urinary bladder. Nonspecific enlargement of the prostate. Cannot definitively exclude bladder wall lesion. Large fat-containing left inguinal hernia. There are enlarged bilateral inguinal nodes. The lumbar spine demonstrates degenerative change CT/Abdomen/Pelvis W IV Cont ONLY IMPRESSION: Nonobstructing lipomatous mass in the post bulbar duodenum Mild nonspecific ileus with diffuse fecal retention in colon. Retroperitoneal and mesenteric adenopathy with mild splenomegaly consistent with known lymphoma. Nonspecific enlargement of prostate encroaching upon the base of the bladder Other findings as above Electronically Signed: Deandre Taylor MD at 22:36 EDT ,
--- NOTE | 2022-12-19 20:32 | EDS_ITS ---
HPI <ANASTASIYA Mancia - Last Filed: 12/19/22 20:53> History of Present Illness Chief Complaint: Abd Pain Narrative Narrative: Patient is an 87-year-old male with history of CAD, type 2 diabetes, hypertension, history of lymphoma who presents to the emergency department with severe left lower quadrant abdominal pain, left groin pain. Per the family member, patient's been having lower abdominal pain all week. He does have history of inguinal hernia. However today, while he was running the vacuum, he had severe onset of left lower quadrant abdominal pain. He did see Dr. Peres who referred him to a surgeon. Patient continued to have significant pain and the patient's family member brought him here. Patient states he been slightly constipated however he did have a bowel movement today. He is still passing gas. [facility] <ANASTASIYA Mancia - Last Filed: 12/19/22 20:53> [facility] Medical History (Updated 12/19/22 @ 23:[address] 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 Gr manages cholesterol #90 tabs 05/24/18 [Rx Last Taken 03/09/20] carvedilol 3.125 mg tablet 3.125 mg PO BID bp 01/29/20 [History Last Taken 03/09/20] aspirin 81 mg tablet,delayed release 81 mg PO DAILY@0800 [facility] 03/09/20 [History Last Taken 03/09/20] clopidogrel 75 mg tablet 75 mg PO DAILY 03/22/21 [History Last Taken Unknown] finasteride 5 mg tablet 5 mg PO DAILY 09/29/21 [History Last Taken Unknown] donepezil 5 mg tablet 5 mg PO DAILY 12/08/22 [History Last Taken Unknown] dutasteride 0.5 mg capsule 0.5 mg PO DAILY 12/08/22 [History Last Taken Unknown] oxybutynin chloride 10 mg tablet,extended release 24 hr 10 mg PO DAILY 12/08/22 [History Last Taken Unknown] cefdinir 300 mg capsule 300 mg PO BID #10 caps 12/09/22 [Rx Last Taken Unknown] Allergy/AdvReac Type Severity Reaction Status Date / Time Penicillins Allergy Hives Verified 12/19/22 19:58 tree and shrub pollen Allergy Other Verified 12/19/22 19:58 lisinopril AdvReac Mild cough Verified 12/19/22 19:58 Family History Father , age 39 from [place] CAD (coronary artery disease) Myocardial infarction Sudden cardiac Mother Diabetes Surgical History History of appendectomy History of left heart catheterization Presence of coronary angioplasty implant and graft (~02/22/16) Social History Smoking Status: Former smoker how long ago did patient quit smokin years ago alcohol intake: current alcohol intake frequency: a few times a week Alcohol type: beer substance use type: does not use caffeine: Yes Type: coffee Number of servings: 2 ROS <ANASTASIYA Mancia - Last Filed: 12/19/22 20:53> ROS ED ROS Narrative Constitutional: Negative for fever, chills, weight loss, weakness Eyes: Negative for vision loss, vision change, double vision ENT: Negative for any sore throat, ear pain, congestion Cardiovascular: Negative for any chest pain, tightness, palpitations Respiratory: Negative for any cough, sputum production, hemoptysis, dyspnea, dyspnea on exertion, orthopnea Gastrointestinal: Negative for any vomiting, diarrhea, constipation, blood in stool, blood in vomit. Positive for significant left lower abdominal pain, kamari t groin pain. : Negative for any urinary frequency, dysuria, retention. Positive blood in urine Muscle skeletal: Negative for any muscle joint pain, stiffness, myalgias, arthralgias, neck pain, back pain Neurological: Negative for any headache, syncope, numbness or tingling, dizziness Skin: Negative for any rashes, lumps, itching, abrasions, lacerations Psychiatric: Negative for any depression, anxiety, stress, suicidal ideation, homicidal ideation Hematologic: Negative for any easy bruising, excessive bruising, easy bleeding Allergies: Negative for any eczema, hives, rash EXAM <ANASTASIYA Mancia - Last Filed: 12/19/22 20:53> Physical Exam Narrative Exam Narrative: Vital signs reviewed. Patient does appear to be in mild distress secondary to left lower quadrant abdominal pain, left groin pain. HEET: Head normocephalic atraumatic, TMs clear bilaterally. Posterior pharynx is clear, moist mucous membranes. Nares clear bilaterally. Neck: Supple with no lymphadenopathy or tenderness. No signs of meningismus, negative jolt sign. Cardiac: Regular rate and rhythm no murmurs gallops or rubs, equal peripheral pulses bilaterally. Respiratory: Lungs clear to auscultation bilaterally. No chest tenderness. Abdomen: Patient has a left inguinal hernia there is concern for incarceration. No abdominal bruit or pulsatile masses. No hepatosplenomegaly Extremities: No peripheral edema, no signs of gross trauma or deformity. Active full range of motion of all extremities. Neuro: Cranial nerves II through XII intact, no focal neurological deficits. Skin: Clean dry and intact with no rash, purpura, petechiae, vesicles or pustules. Backs/flank: No CVA tenderness, no midline spinal tenderness, no deformity. Psych: Normal mood and affect. No SI, HI or acute psychosis. : Patient's left lower quadrant abdominal was soft. I did feel a slight hernia however was easily pushed back in. There is no discoloration, there is no erythema, patient does have difficult discussing where the pain actually is. Patient's the pain can sometimes go all the way around his umbilical area. Const Vital Signs: 12/19/22 19:58 12/19/22 22:10 12/19/22 22:14 Temperature 97.4 F L Temperature Source Temporal Pulse Rate 58 L 54 L 60 Respiratory Rate 18 20 H 23 H Blood Pressure 142/64 H Blood Pressure Mean 90 Pulse Ox 99 78 98 Oxygen Delivery Method Room Air Nasal Cannula Oxygen Flow Rate (L/min) 2 12/19/22 22:00 Temperature Temperature Source Pulse Rate 59 L Respiratory Rate 23 H Blood Pressure 142/68 H Blood Pressure Mean 91 Pulse Ox 90 Oxygen Delivery Method Oxygen Flow Rate (L/min) <Dr. Manjinder Barron MD - Last Filed: 12/19/22 23:13> Physical Exam Const Vital Signs: 12/19/22 19:58 12/19/22 22:10 12/19/22 22:14 Temperature 97.4 F L Temperature Source Temporal Pulse Rate 58 L 54 L 60 Respiratory Rate 18 20 H 23 H Blood Pressure 142/64 H Blood Pressure Mean 90 Pulse Ox 99 78 98 Oxygen Delivery Method Room Air Nasal Cannula Oxygen Flow Rate (L/min) 2 12/19/22 22:00 Temperature Temperature Source Pulse Rate 59 L Respiratory Rate 23 H Blood Pressure 142/68 H Blood Pressure Mean 91 Pulse Ox 90 Oxygen Delivery Method Oxygen Flow Rate (L/min) MDM <ANASTASIYA Mancia - Last Filed: 12/19/22 20:53> [facility] Lab Data Labs: Laboratory Results - last 24 hr 12/19/22 12/19/22 20:50 21:37 WBC 4.3 L RBC 3.28 L Hgb 10.0 L Hct 30.6 L MCV 93.3 MCH 30.5 MCHC 32.7 RDW Std Deviation 50.5 H RDW Coeff of [place] 14.6 Plt Count 166 MPV 9.4 Immature Gran % (Auto) 0.200 Neut % (Auto) 9.5 L Lymph % (Auto) 84.2 H [place] % (Auto) 2.6 Eos % (Auto) 2.8 Baso % (Auto) 0.7 Absolute Neuts (auto) 0.4 L Absolute Lymphs (auto) 3.62 Nucleated RBC % 0 Differential Comment SEE COMMENT Platelet Estimate ADEQUATE RBC Morphology N CHROM Hypochromasia RARE Anisocytosis RARE Macrocytosis RARE Sodium 138 Potassium 4.1 Chloride 105 Carbon Dioxide 30.0 Anion Gap 3 L BUN 24 H Creatinine 1.50 H Estim Creat Clear Calc 37.18 Est GFR (MDRD) Af Amer 57 L Est GFR (MDRD) Non-Af 47 L BUN/Creatinine Ratio 16.0 Glucose 161 H Lactic Acid 1.2 Calcium 8.1 L Urine Color Yellow Urine Clarity Clear Urine pH 7.0 Ur Specific [place] 1.005 Urine Protein Negative Urine Glucose (UA) Normal Urine Ketones Negative Urine Occult Blood 150 H Urine Nitrite Negative Urine Bilirubin Negative Urine Urobilinogen Normal Ur Leukocyte Esterase Negative Urine RBC 5-10 SEEN Urine WBC 0 SEEN Ur Squamous Epith Cells 0-5 SEEN Amorphous Sediment 1+ PHOS Urine Bacteria 0 SEEN Urine Mucus 0 SEEN Radiography Diagnostic Testing: Clinical Impression(s) from Imaging Studies Abdomen/Pelvis CT 12/19/22 20:28 IMPRESSION: Nonobstructing lipomatous mass in the post bulbar duodenum Mild nonspecific ileus with diffuse fecal retention in colon. Retroperitoneal and mesenteric adenopathy with mild splenomegaly consistent with known lymphoma. Nonspecific enlargement of prostate encroaching upon the base of the bladder Other findings as above Electronically Signed: Deandre Taylor MD at 22:36 EDT , Treatment and Re-Evaluation :: Patient appears to be in mild distress secondary to abdominal pain, vital signs are stable. Presenting to the emergency department for concern of inguinal hernia, abdominal pain has been ongoing for 1 week much worse in the last 24 hours. Patient will receive a full abdominal work-up, CBC, chemistry, lactic acid. Patient's examination is concerning for a incarcerated hernia. However patient will receive a CT scan of the abdomen pelvis looking for any obstruction, hernia, diverticulitis. Patient was given IV fluids, morphine 2 mg, Zofran. Patient will be given 4 more milligrams of morphine, surgery was consulted secondary to the possible incarceration of the left inguinal hernia if this cannot be reduced. <Dr. Manjinder Barron MD - Last Filed: 12/19/22 23:13> [facility] Narrative Medical decision making narrative: I have personally performed a face to face assessment of the patient and have reviewed the MASOUD Note. I performed a substantive portion of the visit including all aspects of the following. My stewart findings include: History is 87-year-old male prior history of lymphoma about 10 years ago. Also history of the left lower quadrant hernia that was never repaired. Complaining of left lower quadrant abdominal pain for days. Exam is [87-year-old male vital signs stable afebrile. He does not look septic or toxic. HEENT exam unremarkable. Lungs clear. Heart regular rhythm. Abdomen soft, nondistended. No peritoneal signs. He does have a tender left lower quadrant consistent with acute incarcerated hernia. He also has palpable lymph nodes in his left groin. The right upper right lower quadrants are unremarkable. Moving all 4 extremities. Neurologically he is awake and alert.] Medical Decision Making [87-year-old male that appears to have an incarcerated left inguinal hernia. Also has a history of lymphoma with palpable lymph nodes in the groin. I spoke to general surgery Dr. David macias. He came and evaluated the patient. He did reduce the hernia and the patient's pain immediately got better. He is also concerned about the lymph nodes.] Other additions or changes: [None] Lab Data Attestation: I reviewed the patient's lab results. Lab results narrative: CBC shows a white count of 4.3. H&H of 10.0 and 30. Platelets 166. Electrolytes show a gap of 3. BUN and creatinine are 24 and 1.5. Glucose 161. Lactic acid is normal at 1.2. Urinalysis shows 5-10 red cells. No white cells. No bacteria. And no nitrates. Labs: Laboratory Results - last 24 hr 12/19/22 12/19/22 20:50 21:37 WBC 4.3 L RBC 3.28 L Hgb 10.0 L Hct 30.6 L MCV 93.3 MCH 30.5 MCHC 32.7 RDW Std Deviation 50.5 H RDW Coeff of [place] 14.6 Plt Count 166 MPV 9.4 Immature Gran % (Auto) 0.200 Neut % (Auto) 9.5 L Lymph % (Auto) 84.2 H [place] % (Auto) 2.6 Eos % (Auto) 2.8 Baso % (Auto) 0.7 Absolute Neuts (auto) 0.4 L Absolute Lymphs (auto) 3.62 Nucleated RBC % 0 Differential Comment SEE COMMENT Platelet Estimate ADEQUATE RBC Morphology N CHROM Hypochromasia RARE Anisocytosis RARE Macrocytosis RARE Sodium 138 Potassium 4.1 Chloride 105 Carbon Dioxide 30.0 Anion Gap 3 L BUN 24 H Creatinine 1.50 H Estim Creat Clear Calc 37.18 Est GFR (MDRD) Af Amer 57 L Est GFR (MDRD) Non-Af 47 L BUN/Creatinine Ratio 16.0 Glucose 161 H Lactic Acid 1.2 Calcium 8.1 L Urine Color Yellow Urine Clarity Clear Urine pH 7.0 Ur Specific [place] 1.005 Urine Protein Negative Urine Glucose (UA) Normal Urine Ketones Negative Urine Occult Blood 150 H Urine Nitrite Negative Urine Bilirubin Negative Urine Urobilinogen Normal Ur Leukocyte Esterase Negative Urine RBC 5-10 SEEN Urine WBC 0 SEEN Ur Squamous Epith Cells 0-5 SEEN Amorphous Sediment 1+ PHOS Urine Bacteria 0 SEEN Urine Mucus 0 SEEN Radiography Diagnostic Testing: Clinical Impression(s) from Imaging Studies Abdomen/Pelvis CT 12/19/22 20:28 IMPRESSION: Nonobstructing lipomatous mass in the post bulbar duodenum Mild nonspecific ileus with diffuse fecal retention in colon. Retroperitoneal and mesenteric adenopathy with mild splenomegaly consistent with known lymphoma. Nonspecific enlargement of prostate encroaching upon the base of the bladder Other findings as above Electronically Signed: Deandre Taylor MD at 22:36 EDT , Discharge Plan Triage Chief Complaint: Abd Pain ED Midlevel Provider: Chapin Murguia ED Provider: Manjinder Barron Dx/Rx/DC Orders Clinical Impression: Inguinal hernia Prescriptions: No Action levothyroxine 75 mcg tablet 88 mcg PO DAILY clopidogrel 75 mg tablet 75 mg PO DAILY Hold Instructions: Pt has been DC'd finasteride 5 mg tablet 5 mg PO DAILY Hold Instructions: Pt has been DC'd Patient Comments: TAKE 1 TABLET BY MOUTHTONCE DAILY carvedilol 3.125 MG tablet 3.125 mg PO BID aspirin 81 MG tablet 81 mg PO DAILY@0800 oxybutynin chloride 10 mg tablet extended release 24hr 10 mg PO DAILY Patient Comments: TAKE 1 TABLET BY MOUTH)ONCE DAILY dutasteride 0.5 mg capsule 0.5 mg PO DAILY donepezil 5 mg tablet 5 mg PO DAILY cefdinir 300 mg capsule 300 mg PO BID Qty: 10 0RF atorvastatin 40 mg tablet 40 mg PO QHS Qty: 90 3RF Primary Care Provider: Wagner Gr Referrals: Wagner Gr MD [Primary Care Provider] -
[2022-12-19] MEDS: 0.9% Normal Saline (1000mL) 1,000 ML 1000 ML IV (20:44)
[2022-12-19] MEDS: Ondansetron 4 MG/2 ML Vial IV (20:44)
[2022-12-19] MEDS: Morphine 2 MG/ML Syringe IV (20:44)
[2022-12-19] MEDS: Morphine 4 MG/ML Syringe IV (21:06)
[2022-12-19 21:07] LABS: Absolute Lymphocyte Count 3.62 X10^3/uL (0.83-4.51); Absolute Neutrophil Count 0.4 X10^3/uL (2.0-7.7); Basophil# 0.03 X10^3/uL; Basophil% 0.7 % (0-1); Eosinophil# 0.12 X10^3/uL; Eosinophils% 2.8 % (0-5); Hematocrit 30.6 % (40-54); Lymphocyte # 3.62 X10^3/ul (0.83-4.51); Lymphocyte % 84.2 % (19-41); Mean Corp Hgb Conc 32.7 g/dL (32-36); Mean Corpuscular Hgb 30.5 pg (27.0-32.0); Mean Corpuscular Volume 93.3 fL (80-94); Mean Platelet Vol. 9.4 fl (6.2-12.0); Monocyte# 0.11 X10^3/uL; Monocyte% 2.6 % (0-10); NRBC Flagged by Analyzer 0 % (0-5); Neutrophil # 0.41 X10^3/uL (2.7-7.7); Neutrophil % 9.5 % (47-70); POSITIVE DIFFERENTIAL YES; Platelet Count 166 K/mm3 (150-450); RBC Distribution Width CV 14.6 % (11.6-14.6); RBC Distribution Width SD 50.5 fl (35.1-43.9); Red Blood Count 3.28 M/mm3 (4.6-6.2); White Blood Count 4.3 K/mm3 (4.4-11.0)
[2022-12-19 21:19] LABS: Differential Indicated SCAN CRITERIA MET
[2022-12-19 21:23] LABS: Anion Gap 3 (5-15); BUN 24 mg/dL (7-18); Calcium,Total 8.1 mg/dL (8.5-10.1); Chloride 105 mmol/L (98-107); EST Glomerular Filtration Rate 47 mL/min (>60); Est Glom Filt Rate - Afr Amer 57 mL/min (>60); Estimated Creatinine Clearance 37.18 ml/min; Glucose 161 mg/dL (74-106); Potassium 4.1 mmol/L (3.5-5.1); Sodium Level 138 mmol/L (136-145)
[2022-12-19 21:44] LABS: Platelet Estimate ADEQUATE (ADEQ)
[2022-12-19 21:45] LABS: Anisocytosis RARE; Hypochromasia RARE; Macrocytosis RARE; Red Cell Morphology N CHROM NORMAL (NORM C&C)
[2022-12-19 21:47] LABS: Bacteria 0 SEEN /hpf (None Seen); Mucous, Urine 0 SEEN /hpf (<or=2+); White Blood Cells 0 SEEN /hpf (0-5)
[2022-12-19 21:49] LABS: Lactic Acid 1.2 mmol/L (0.4-1.9)
[2022-12-19 21:54] LABS: Color, Urine Yellow (Yellow); Glucose, Dipstick Normal (Normal); Ketone-Dipstick Negative (Negative); Leukocyte Esterase-Dipstick Negative /ul (Negative); Nitrite-Dipstick Negative (Negative); Occult Blood-Urine 150 /ul (Negative); Protein-Dipstick Negative (Negative); Specific Gravity, Urine 1.005 (1.002-1.030); Urine Bilirubin Dipstick Negative (Negative); Urine Clarity Clear (Clear); Urine Urobilinogen Normal (Normal)
[2022-12-19 22:00] VITALS: BP 142/68; PULSE 59; RESP 23; O2SAT 90
[2022-12-19 22:10] VITALS: PULSE 54; RESP 20; O2SAT 78
[2022-12-19 22:14] VITALS: PULSE 60; RESP 23; O2SAT 98
[2022-12-19 22:20] LABS: Amorphous Sediment 1+ PHOS; Red Blood Cells-Urine 5-10 SEEN /hpf (0-5); Squamous Epithelial Cells - UA 0-5 SEEN /hpf (0-5)
--- NOTE | 2022-12-19 22:59 | EX.PCM.CON.S ---
Assessment & Plan Assessment/Plan (1) Inguinal hernia: QUALIFIERS: Obstruction and gangrene presence: without obstruction or gangrene Laterality: unilateral Recurrence: non-recurrent Qualified Code(s): K40.90 - Unilateral inguinal hernia, without obstruction or gangrene, not specified as recurrent PLAN: The patient with left groin pain. His daughter stated this is been going on off and on for 2 weeks. Patient also has a history of lymphoma. He had a CT scan which showed fat-containing left inguinal hernia and enlarged lymph nodes bilaterally. I am unsure as to the reason of his pain. I pushed on his left inguinal hernia and I felt like it may have reduced a little bit of fat but I did not feel any bowel. I examined his CT scans from 3 years ago and a [address] scan from today and his left inguinal hernia appears stable. If the patient does have incarceration of fat in the inguinal hernia that I would expect to see some stranding but I do not. It also appears to be the same size. His lymph nodes appear larger to me when I look at his CT scan. I am unsure if he is having pain from his lymph nodes but he is not having any pain in his right groin. He was also given morphine recently. Currently the patient is having no abdominal pain but I am unsure if this is the morphine. I do not believe any bowel was or is in this hernia so I do not believe it to be a surgical emergency. I would also not recommend repairing the hernia while he is actively being treated for UTI. At this time I do not see a surgical emergency and I am unsure as to the etiology of his pain. The patient will follow-up with me and we will discuss inguinal hernia repair electively. David Dos Santos MD Pager: [facility] [address] [place] [address], [address] [place] [address] Office: HPI Consult Data Date of Consult: 12/19/22 HPI Narrative HPI Narrative: ERMELINDA DIEGO, is a 87 M who presents with left groin pain. The patient reports that this left groin pain has been going on for 2 weeks. His daughter states off-and-on it does not appear to be constant. He says that he was fine yesterday and went fishing. He was vacuuming today and started having left groin pain and started having severe pain. He denies nausea or vomiting. He is constipated. He has had this hernia for at least 15 years. He has never had a hernia repair. Patient also has a history of lymphoma. [facility] Medical History (Updated 12/19/22 @ 23:[address] 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 Gr manages cholesterol #90 tabs 05/24/18 [Rx Last Taken 03/09/20] carvedilol 3.125 mg tablet 3.125 mg PO BID bp 01/29/20 [History Last Taken 03/09/20] aspirin 81 mg tablet,delayed release 81 mg PO DAILY@0800 [facility] 03/09/20 [History Last Taken 03/09/20] clopidogrel 75 mg tablet 75 mg PO DAILY 03/22/21 [History Last Taken Unknown] finasteride 5 mg tablet 5 mg PO DAILY 09/29/21 [History Last Taken Unknown] donepezil 5 mg tablet 5 mg PO DAILY 12/08/22 [History Last Taken Unknown] dutasteride 0.5 mg capsule 0.5 mg PO DAILY 12/08/22 [History Last Taken Unknown] oxybutynin chloride 10 mg tablet,extended release 24 hr 10 mg PO DAILY 12/08/22 [History Last Taken Unknown] cefdinir 300 mg capsule 300 mg PO BID #10 caps 12/09/22 [Rx Last Taken Unknown] Allergy/AdvReac Type Severity Reaction Status Date / Time Penicillins Allergy Hives Verified 12/19/22 19:58 tree and shrub pollen Allergy Other Verified 12/19/22 19:58 lisinopril AdvReac Mild cough Verified 12/19/22 19:58 Family History Father , age 39 from [place] CAD (coronary artery disease) Myocardial infarction Sudden cardiac Mother Diabetes Surgical History History of appendectomy History of left heart catheterization Presence of coronary angioplasty implant and graft (~02/22/16) Social History Smoking Status: Former smoker how long ago did patient quit smokin years ago alcohol intake: current alcohol intake frequency: a few times a week Alcohol type: beer substance use type: does not use caffeine: Yes Type: coffee Number of servings: 2 ROS Constitutional Constitutional: Denies anorexia, chills or fatigue Eyes Eyes: Denies blurry vision ENT HEENT: Denies abnormal hearing Cardiovascular Cardiovascular: Denies chest pain Respiratory/Chest Respiratory/Chest: Denies cough or dyspnea Gastrointestinal Gastrointestinal: Reports abdominal pain; Denies nausea or vomiting Genitourinary Genitourinary: Denies change in urinary stream Musculoskeletal Musculoskeletal: Denies back pain Integumentary Integumentary: Denies jaundice Neurologic Neurologic: Denies dizziness Physical Exam Const alert, oriented x3 and no apparent distress HEENT normocephalic Eyes PERRL Resp normal respiratory effort Cardio Rate: regular rate Rhythm: regular rhythm GI soft to palpation Palpation: tender other (Left groin) Extremity normal to inspection Lab / Micro Data 12/19/22 20:50 12/19/22 20:50 Labs: Laboratory Results - last 24 hr 12/19/22 20:50: WBC 4.3 L, RBC 3.28 L, Hgb 10.0 L, Hct 30.6 L, MCV 93.3, MCH 30.5, MCHC 32.7, RDW Std Deviation 50.5 H, RDW Coeff of [place] 14.6, Plt Count 166, MPV 9.4, Immature Gran % (Auto) 0.200, Neut % (Auto) 9.5 L, Lymph % (Auto) 84.2 H, [place] % (Auto) 2.6, Eos % (Auto) 2.8, Baso % (Auto) 0.7, Absolute Neuts (auto) 0.4 L, Absolute Lymphs (auto) 3.62, Nucleated RBC % 0, Differential Comment SEE COMMENT, Platelet Estimate ADEQUATE, RBC Morphology N CHROM, Hypochromasia RARE, Anisocytosis RARE, Macrocytosis RARE, Sodium 138, Potassium 4.1, Chloride 105, Carbon Dioxide 30.0, Anion Gap 3 L, BUN 24 H, Creatinine 1.50 H, Estim Creat Clear Calc 37.18, Est GFR (MDRD) Af Amer 57 L, Est GFR (MDRD) Non-Af 47 L, BUN/Creatinine Ratio 16.0, Glucose 161 H, Lactic Acid 1.2, Calcium 8.1 L 12/19/22 21:37: Urine Color Yellow, Urine Clarity Clear, Urine pH 7.0, Ur Specific [place] 1.005, Urine Protein Negative, Urine Glucose (UA) Normal, Urine Ketones Negative, Urine Occult Blood 150 H, Urine Nitrite Negative, Urine Bilirubin Negative, Urine Urobilinogen Normal, Ur Leukocyte Esterase Negative, Urine RBC 5-10 SEEN, Urine WBC 0 SEEN, Ur Squamous Epith Cells 0-5 SEEN, Amorphous Sediment 1+ PHOS, Urine Bacteria 0 SEEN, Urine Mucus 0 SEEN Radiology Impression Abdomen/Pelvis CT 12/19/22 20:28 IMPRESSION: Nonobstructing lipomatous mass in the post bulbar duodenum Mild nonspecific ileus with diffuse fecal retention in colon. Retroperitoneal and mesenteric adenopathy with mild splenomegaly consistent with known lymphoma. Nonspecific enlargement of prostate encroaching upon the base of the bladder Other findings as above Electronically Signed: Deandre Taylor MD at 22:36 EDT ,
[2022-12-19 23:00] VITALS: BP 124/66; PULSE 57; RESP 12
== END 2022-12-19 23:46 | disposition home or self-care (01) ==
PROVIDERS: Nurse Practitioner; Emergency Provider Emergency Medicine; PCP Family Medicine; Visit Provider Emergency Medicine
DX: K40.40 Unilateral inguinal hernia, with gangrene, not specified as recurrent (principal); K56.7 Ileus, unspecified; E11.9 Type 2 diabetes mellitus without complications; I25.10 Atherosclerotic heart disease of native coronary artery without angina pectoris; I10 Essential (primary) hypertension; Z87.891 Personal history of nicotine dependence; E78.00 Pure hypercholesterolemia, unspecified; Z87.19 Personal history of other diseases of the digestive system; Z90.49 Acquired absence of other specified parts of digestive tract; Z85.72 Personal history of non-Hodgkin lymphomas
CPT/HCPCS: 74177; 80048; 81001; 83605; 85025; 96361; 96374; 96375; 99282; J7030; Q9967; A4216; J2405

== ENCOUNTER 2022-12-23 17:07 | Emergency (ER) | payer MEDICARE, SELFPAY ==
[2022-12-23 17:12] VITALS: BP 162/91; PULSE 63; RESP 18; TEMP 36.3; O2SAT 97; BMI 25.2
--- NOTE | 2022-12-23 17:28 | EX.ED.DYSGE1 ---
HPI History of Present Illness Chief Complaint: Other, Pain/Inj Detail of Chief Complaint: Left groin pain Informant: patient Narrative Narrative: Patient presents to the emergency department complaint of left groin pain that started approximately 3:30 PM. Patient was getting into his daughter's car when he had sudden onset of pain. Patient was seen on December 19 in the ER for same complaint and has a known inguinal hernia that had to be reduced by general surgeon. Patient has since followed up with general surgery but does not have appointment scheduled to have hernia repaired as there is some concern that his lymphoma may have returned as well. Patient rates his pain a 10 out of 10. He had no vomiting. 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 Gr manages cholesterol #90 tabs 05/24/18 [Rx Last Taken 03/09/20] carvedilol 3.125 mg tablet 3.125 mg PO BID bp 01/29/20 [History Last Taken 03/09/20] aspirin 81 mg tablet,delayed release 81 mg PO DAILY@0800 [facility] 03/09/20 [History Last Taken 03/09/20] donepezil 5 mg tablet 5 mg PO DAILY 12/08/22 [History Last Taken Unknown] dutasteride 0.5 mg capsule 0.5 mg PO DAILY 12/08/22 [History Last Taken Unknown] oxybutynin chloride 10 mg tablet,extended release 24 hr 10 mg PO DAILY 12/08/22 [History Last Taken Unknown] hydrocodone-acetaminophen 5-325mg 5mg-325mg 1 tab PO Q4H PRN PRN Pain 2 days #14 TABLETS 12/23/22 [Rx Last Taken Unknown] Allergy/AdvReac Type Severity Reaction Status Date / Time Penicillins Allergy Hives Verified 12/23/22 17:11 tree and shrub pollen Allergy Other Verified 12/23/22 17:11 lisinopril AdvReac Mild cough Verified 12/23/22 17:11 Family History Father , age 39 from [place] CAD (coronary artery disease) Myocardial infarction Sudden cardiac Mother Diabetes Surgical History History of appendectomy History of left heart catheterization Presence of coronary angioplasty implant and graft (~02/22/16) Social History Smoking Status: Former smoker how long ago did patient quit smokin years ago alcohol intake: current alcohol intake frequency: a few times a week Alcohol type: beer substance use type: does not use caffeine: Yes Type: coffee Number of servings: 2 ROS ROS ED Review of Systems ROS Unobtainable: other Constitutional Constitutional ED: Reports lethargy; Denies chills, fever(s), sweats or weight loss Eyes Eyes: Denies blurry vision, change in vision or diplopia ENT ENT ED: Denies rhinorrhea or sore throat Cardiovascular Cardiovascular: Denies chest pain, orthopnea or racing heartbeat Respiratory/Chest Respiratory/Chest: Denies cough, dyspnea, dyspnea on exertion, orthopnea or sputum Gastrointestinal Gastrointestinal: Reports abdominal pain; Denies diarrhea, nausea or vomiting Genitourinary Genitourinary ED: Denies dysuria, hematuria or urinary frequency Musculoskeletal Musculoskeletal: Denies arthralgias, back pain, myalgias or neck pain Integumentary Denies abscess, Abrasions or rash Neurologic Neurologic: Denies headache(s) or weakness Psychiatric Psychiatric: Denies anxiety, depression or suicidal thoughts Endocrine Endocrinology: Denies polydipsia, polyphagia or polyuria Hematologic/Lymphatic Hematologic/Lymphatic: Denies easy bleeding, easy bruising or lymphadenopathy Allergic/Immunologic Allergic/Immunologic ED: Denies mouth swelling, tongue swelling or urticaria EXAM Physical Exam Const Vital Signs: 12/23/22 17:12 Temperature 97.4 F L Temperature Source Temporal Pulse Rate 63 Respiratory Rate 18 Blood Pressure 162/91 H Blood Pressure Mean 114 Pulse Ox 97 Oxygen Delivery Method Room Air Positive well nourished and well developed General Appearance ED: well developed and NAD HEENT Reports TM's clear and moist mucous membranes normocephalic and atraumatic; Negative for trauma or tenderness Tympanic Membrane ED: Yes TM's clear Eyes PERRL and EOMs intact bilaterally General Eye ED: Negative for pale conjunctiva or scleral icterus Neck no lymphadenopathy, supple and no JVD General: Negative for tenderness Chest Wall inspection of chest normal and palpation of chest normal Chest: Negative for tenderness Resp normal respiratory effort and clear to auscultation bilaterally Effort and Inspection: Negative for respiratory distress or pain with movement Auscultation: Negative for rhonchi, wheezes or diminished lung sounds Cardio regular rate, regular rhythm, S1 normal heart sound, S2 normal heart sound and no murmurs Peripheral Pulses: pulses 2+ throughout GI normal to inspection, nondistended, normoactive bowel sounds, soft to palpation, non-tender, non-distended and no masses GI Narrative: Tenderness to palpation over the left inguinal region although I have a have very difficult time palpating a hernia. I attempted manipulating the area unsuccessfully. Patient did not tolerate exam well secondary to pain. Back/Spine no CVA tenderness and no thoracic nor lumbar tenderness Extremity normal to inspection General Extremety ED: Negative for edema General Extremity: Negative for edema Neuro oriented x3, CN's II-XII intact bilaterally, no sensory deficits noted and gait normal Sensorium / Orientation: awake, alert, oriented to person, oriented to place and oriented to time Motor Exam: strength 5/5 throughout and strength abnormal Psych mental status grossly normal Skin no rashes or lesions noted and no wounds MDM MDM MDM Narrative Medical decision making narrative: Patient will have an IV line established. Patient will be given morphine and Zofran. Basic labs will be ordered and we will discuss case with general surgery. I discussed case with Dr. Dos Santos who recommended obtaining CT to image further. If there is no bowel or signs of obstruction or incarceration he can be discharged home with pain medication and follow-up with general surgery. CBC with differential white count 3.8 with hemoglobin 10.8 and platelet count of 147. Chemistries unremarkable. Lactate was normal at 0.7. CT scan of the abdomen pelvis showed large left inguinal hernia with only fat within it no evidence of bowel obstruction or bowel present. Patient after being medicated with morphine and felt markedly improved. At this point feel he can be discharged to home with pain medication and follow-up with general surgery for definitive care. Advised to return if worsening pain, fever, vomiting, or condition worsening way. Lab Data Labs: Laboratory Results - last 24 hr 12/23/22 17:50 WBC 3.8 L RBC 3.56 L Hgb 10.8 L Hct 33.9 L MCV 95.2 H MCH 30.3 MCHC 31.9 L RDW Std Deviation 50.8 H RDW Coeff of [place]ont 14.6 Plt Count 147 L MPV 9.9 Immature Gran % (Auto) 0.300 Neut % (Auto) 16.1 L Lymph % (Auto) 76.5 H Parmer % (Auto) 2.6 Eos % (Auto) 3.7 Baso % (Auto) 0.8 Absolute Neuts (auto) 0.6 L Absolute Lymphs (auto) 2.93 Nucleated RBC % 0 Differential Comment SCANNED Sodium 140 Potassium 4.3 Chloride 107 Carbon Dioxide 30.0 Anion Gap 3 L BUN 16 Creatinine 1.34 H Estim Creat Clear Calc 41.61 Est GFR (MDRD) Af Amer 65 Est GFR (MDRD) Non-Af 54 L BUN/Creatinine Ratio 11.9 Glucose 108 H Lactic Acid 0.7 Calcium 8.7 Radiography Diagnostic Testing: Clinical Impression(s) from Imaging Studies Abdomen/Pelvis CT 12/23/22 17:36 IMPRESSION: Splenomegaly and retroperitoneal as well as mesenteric adenopathy consistent with known lymphoma Distal abdominal aortic aneurysm Large left inguinal hernia containing fat without internal stranding Other findings as above not significantly changed since previous study Electronically Signed: Deandre Taylor MD at 18:30 EDT , Discharge Plan Triage Chief Complaint: Other, Pain/Inj ED Provider: Vitaly Ley Dx/Rx/DC Orders Clinical Impression: Inguinal hernia Instructions: ED Hernia (Adult) Prescriptions: New hydrocodone-acetaminophen [hydrocodone-acetaminophen] 5-325 mg tablet 1 tab PO Q4H PRN PRN (Reason: Pain) 2 Days Qty: 14 0RF No Action carvedilol 3.125 MG tablet 3.125 mg PO BID aspirin 81 MG tablet 81 mg PO DAILY@0800 oxybutynin chloride 10 mg tablet extended release 24hr 10 mg PO DAILY Patient Comments: TAKE 1 TABLET BY MOUTH)ONCE DAILY dutasteride 0.5 mg capsule 0.5 mg PO DAILY donepezil 5 mg tablet 5 mg PO DAILY atorvastatin 40 mg tablet 40 mg PO QHS Qty: 90 3RF Primary Care Provider: Wagner Gr Referrals: Wagner Gr MD [Primary Care Provider] - Cale Gross MD [Med Staff - Active Staff] - 3-5 Days Disposition Disposition: Home, Self Care Discharge Date/Time: 12/23/22 19:27
--- NOTE | 2022-12-23 17:36 | CT_ITS ---
STUDY: CT ABDOMEN AND PELVIS WITHOUT CONTRAST REASON FOR EXAM: Male, 87 years old. left inguinal pain RADIATION DOSAGE (If Supplied By Facility): CTDIvol = ( 6.65 ) mGy, DLP = ( 350.50 ) mGycm TECHNIQUE: Transaxial images were obtained from the dome of the diaphragm to the symphysis pubis without oral contrast, and without intravenous contrast. Sagittal and coronal images were reconstructed. Individualized dose optimization techniques were used for this CT. COMPARISON: December 19, 2022 FINDINGS: Bibasilar interstitial thickening. Mild multinodular pleural thickening in left hemithorax. The visualized portions of the heart are within normal limits. Normal liver. Normal gallbladder and extrahepatic biliary system. Spleen is mildly enlarged but homogeneous attenuation. Normal pancreas. Normal bilateral adrenal glands. Normal right kidney. Normal left kidney. Normal visualized stomach. [Extensive noted within the post bulbar duodenum. No evidence for small bowel obstruction. Diffuse fecal retention noted within the colon. Appendix not visualized status post appendectomy Atherosclerotic changes of the aorta with distal abdominal aortic aneurysm. Normal inferior vena cava. Large retroperitoneal nodes within the abdomen and pelvis bilaterally as well as mesenteric nodes consistent with known lymphoma. Normal urinary bladder. Nonspecific enlargement of prostate Large fat-containing left inguinal hernia without definitive evidence for incarceration. The lumbar spine demonstrates degenerative changes No significant changes since previous study CT/Abdomen/Pelvis without Cont IMPRESSION: Splenomegaly and retroperitoneal as well as mesenteric adenopathy consistent with known lymphoma Distal abdominal aortic aneurysm Large left inguinal hernia containing fat without internal stranding Other findings as above not significantly changed since previous study Electronically Signed: Deandre Taylor MD at 18:30 EDT ,
[2022-12-23] MEDS: Morphine 4 MG/ML Syringe IV (17:46)
[2022-12-23] MEDS: Ondansetron 4 MG/2 ML Vial IV (17:46)
[2022-12-23] MEDS: 0.9% Normal Saline (1000mL) 1,000 ML 125 ML IV (17:49)
[2022-12-23 18:15] LABS: Absolute Lymphocyte Count 2.93 X10^3/uL (0.83-4.51); Absolute Neutrophil Count 0.6 X10^3/uL (2.0-7.7); Basophil# 0.03 X10^3/uL; Basophil% 0.8 % (0-1); Eosinophil# 0.14 X10^3/uL; Eosinophils% 3.7 % (0-5); Hematocrit 33.9 % (40-54); Hemoglobin 10.8 g/dL (13.0-16.5); Lymphocyte # 2.93 X10^3/ul (0.83-4.51); Lymphocyte % 76.5 % (19-41); Mean Corp Hgb Conc 31.9 g/dL (32-36); Mean Corpuscular Hgb 30.3 pg (27.0-32.0); Mean Corpuscular Volume 95.2 fL (80-94); Mean Platelet Vol. 9.9 fl (6.2-12.0); Monocyte% 2.6 % (0-10); NRBC Flagged by Analyzer 0 % (0-5); Neutrophil # 0.62 X10^3/uL (2.7-7.7); Neutrophil % 16.1 % (47-70); POSITIVE DIFFERENTIAL YES; Platelet Count 147 K/mm3 (150-450); RBC Distribution Width CV 14.6 % (11.6-14.6); RBC Distribution Width SD 50.8 fl (35.1-43.9); Red Blood Count 3.56 M/mm3 (4.6-6.2); White Blood Count 3.8 K/mm3 (4.4-11.0)
[2022-12-23 18:22] LABS: Anion Gap 3 (5-15); BUN 16 mg/dL (7-18); BUN/Creat Ratio 11.9 RATIO (10-20); Calcium,Total 8.7 mg/dL (8.5-10.1); Chloride 107 mmol/L (98-107); Creatinine, Serum 1.34 mg/dL (0.70-1.30); EST Glomerular Filtration Rate 54 mL/min (>60); Est Glom Filt Rate - Afr Amer 65 mL/min (>60); Estimated Creatinine Clearance 41.61 ml/min; Glucose 108 mg/dL (74-106); Potassium 4.3 mmol/L (3.5-5.1); Sodium Level 140 mmol/L (136-145)
[2022-12-23 18:26] LABS: Differential Indicated SCAN CRITERIA MET
[2022-12-23 18:33] LABS: Differential Comment SCANNED
[2022-12-23 18:46] LABS: Lactic Acid 0.7 mmol/L (0.4-1.9)
== END 2022-12-23 19:27 | disposition home or self-care (01) ==
PROVIDERS: Emergency Provider Emergency Medicine; PCP Family Medicine; Visit Provider Emergency Medicine
DX: K40.90 Unilateral inguinal hernia, without obstruction or gangrene, not specified as recurrent (principal); E11.9 Type 2 diabetes mellitus without complications; I25.10 Atherosclerotic heart disease of native coronary artery without angina pectoris; I10 Essential (primary) hypertension; E78.00 Pure hypercholesterolemia, unspecified; Z79.82 Long term (current) use of aspirin; Z79.890 Hormone replacement therapy; Z79.899 Other long term (current) drug therapy; Z87.891 Personal history of nicotine dependence; Z95.1 Presence of aortocoronary bypass graft
CPT/HCPCS: 74176; 80048; 83605; 85025; 96361; 96374; 96375; 99283; J7030; A4216; J2405

== ENCOUNTER 2022-12-27 16:23 | Observation (INO) | payer MEDICARE, SELFPAY ==
[2022-12-26 13:59] LABS: Mucous, Urine 0 SEEN /hpf (<or=2+)
[2022-12-26 15:18] LABS: Color, Urine Yellow (Yellow); Glucose, Dipstick Normal (Normal); Ketone-Dipstick Negative (Negative); Leukocyte Esterase-Dipstick 25 /ul (Negative); Nitrite-Dipstick Negative (Negative); Occult Blood-Urine 10 /ul (Negative); Protein-Dipstick 15 mg/dl (Negative); Specific Gravity, Urine 1.015 (1.002-1.030); Urine Bilirubin Dipstick Negative (Negative); Urine Clarity Clear (Clear); Urine Urobilinogen Normal (Normal)
[2022-12-26 15:23] LABS: Thyroid Stim Hormone (TSH) 2.04 uIU/mL (0.358-3.74)
[2022-12-26 15:24] LABS: White Blood Cells 5-10 SEEN /hpf (0-5)
[2022-12-26 15:25] LABS: Bacteria RARE /hpf (None Seen); Red Blood Cells-Urine 0-5 SEEN /hpf (0-5); Squamous Epithelial Cells - UA 0-5 SEEN /hpf (0-5)
[2022-12-27] VITALS (16 sets, daily range): BP systolic 85–176; BP diastolic 56–87; PULSE 50–70; RESP 14–16; TEMP 36.2–36.7; O2SAT 90–100; BMI 24.6
[2022-12-27] MEDS: Lactated Ringers 1,000 ML 15 ML IV (10:32)
--- NOTE | 2022-12-27 11:55 | HP.PCM_ITS ---
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 Gr manages cholesterol #90 tabs 05/24/18 [Rx Confirmed 12/21/22] carvedilol 3.125 mg tablet 3.125 mg PO BID bp 01/29/20 [History Confirmed 12/21/22] aspirin 81 mg tablet,delayed release 81 mg PO DAILY@0800 [facility] 03/09/20 [History Confirmed 12/21/22] donepezil 5 mg tablet 5 mg PO DAILY 12/08/22 [History Confirmed 12/21/22] dutasteride 0.5 mg capsule 0.5 mg PO DAILY 12/08/22 [History Confirmed 12/21/22] oxybutynin chloride 10 mg tablet,extended release 24 hr 10 mg PO DAILY 12/08/22 [History Confirmed 12/21/22] [facility] Medical History 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 Essential hypertension Hard of hearing History of lateral wall myocardial infarction Left ventricular systolic dysfunction Lymphoma Memory deficit Pneumonia due to COVID-19 virus Pure hypercholesterolemia Stented coronary artery (~02/22/16) Type 2 diabetes mellitus Surgical History History of appendectomy History of left heart catheterization Presence of coronary angioplasty implant and graft (~02/22/16) Family History Father , age 39 from [place] CAD (coronary artery disease) Myocardial infarction Sudden cardiac deathMother Diabetes Social History Smoking Status: Former smoker how long ago did patient quit smokin years ago alcohol intake: current alcohol intake frequency: a few times a week Alcohol type: beer substance use type: does not use caffeine: Yes Type: coffee Number of servings: 2 HPI HPI HPI: 87-year-old gentleman. He was recently seen in the emergency room for an incarcerated left inguinal hernia. I have been asked by family members to provide an additional surgical consultation and if need be treatment. The patient was urgently seen by Dr. David Dos Santos on December 19, 2022 in the emergency room. Patient was felt to have a incarcerated left inguinal hernia with fat. Diffuse adenopathy was also noted. The patient has a history of lymphoma. There was concerns that he was also being actively treated for a urinary tract infection. Elective repair was offered to the patient. Report suggest the patient's had this hernia for at least 15 years. I have personally reviewed his CT imaging as did Dr. Dos Santos. I suspect that the patient has bilateral inguinal hernias so certainly more notable on the left. And certainly concur that this appeared to be a fat-containing hernia only with no bowel. A urine culture that was obtained on December 08, 2022 showed Pseudomonas aeruginosa and corynebacterium glucuronolytic. These were of low colony count. On December 08 patient had a Covid-19 exam that was negative. He also had a respiratory panel that was negative. On December 19, 2022 white blood cell count was 4.3 with a hemoglobin of 10 hematocrit of 30.6 platelet count 166,000 with 84% lymphocytes. Previous laboratory that I have available suggest that March 23, 2020 he had 43% lymphocytes suggesting a recurrence of his lymphoma. He had been hospitalized from December 08 through December 09 at the [facility] with a discharge diagnosis of systemic inflammatory response syndrome. He was having fever and relatively low blood pressure and was felt to have an acute cystitis. He was hypokalemic and thrombocytopenic at that time with acute renal failure. That discharge summary suggested that he has a infrarenal abdominal aortic aneurysm but what I review on CT scan suggest that he has a distal aortic dissection. He has atherosclerotic coronary vascular disease with history of coronary stenting and is on clopidogrel and low-dose aspirin in addition to his other medications. The patient is accompanied by 2 daughters today. He states that since his ER visit 2 days ago he has had no pain. He notes that he has had some intermittent fever but that was back in November 2022 when he was hospitalized for suspected UTI. He was mildly hypotensive and had fever then. He was treated with a couple different courses of antibiotics and finally ended up on a oral course of ciprofloxacin. He has an upcoming appointment with urologist Dr. Mike Peres because the patient is also having some mild hematuria. The patient states that his pain was in the left groin or lateral groin area. It was onset after he was doing some sweeping around the house. He does still lives independently. He does have some problems with chronic constipation. He has never had a colonoscopy. He states that this discomfort was not constipation pain but more of a focal pain and he states that after he was in the emergency room and after Dr. Dos Santos manipulated him the pain was gone. There has been some concern questioning whether his pain was actually due to a hernia since after Dr. Dos Santos got done pushing on the hernia that the CAT scan was done still showing some fibrofatty tissue there. Perhaps there was a other amount of structure that got reduced with manipulation. The patient likely has some recurrence of his lymphoma based upon his differential. He has an upcoming appointment with Dr. Chapin Dawn at the end of December. It is most pertinently that at this moment in time he is pain free December 19, 2022 STUDY: CT ABDOMEN AND PELVIS WITH CONTRAST REASON FOR EXAM: Male, 87 years old. abdominal pain RADIATION DOSAGE (If Supplied By Facility): CTDIvol = ( 16.53 ) mGy, DLP = ( 1173.89 ) mGycm TECHNIQUE: Transaxial images were obtained from the dome of the diaphragm to the symphysis pubis without oral contrast. IV 100mL [id number]-300 was administered. Sagittal and coronal images were reconstructed. Individualized dose optimization techniques were used for this CT. COMPARISON: January 16, 2020 FINDINGS: Diffuse interstitial serpiginous changes in the lower lobes.. Heart is enlarged and there is mild coronary artery calcification. Bilateral axillary adenopathy is observed Normal liver. Normal gallbladder and extrahepatic biliary system. Mild splenic enlargement.. Normal pancreas. Normal bilateral adrenal glands. No evidence for renal obstruction. There is a small left renal cyst. Normal visualized stomach. There is a large nonobstructing lipomatous density within the post bulbar duodenum Nonspecific ileus diffuse fecal retention in colon.. Appendix not visualized status post appendectomy. Atherosclerotic changes of aorta with mild aneurysmal dilatation measuring approximately 2.95 cm. Normal inferior vena cava. There are enlarged periaortic, aortocaval, common iliac, internal and external iliac nodes Mildly enlarged mesenteric nodes. Normal urinary bladder. Nonspecific enlargement of the prostate. Cannot definitively exclude bladder wall lesion. Large fat-containing left inguinal hernia. There are enlarged bilateral inguinal nodes. The lumbar spine demonstrates degenerative change CT/Abdomen/Pelvis W IV Cont ONLY IMPRESSION: Nonobstructing lipomatous mass in the post bulbar duodenum Mild nonspecific ileus with diffuse fecal retention in colon. Retroperitoneal and mesenteric adenopathy with mild splenomegaly consistent with known lymphoma. Nonspecific enlargement of prostate encroaching upon the base of the bladder Other findings as above Electronically Signed: Deandre Taylor MD at 22:36 EDT , ROS General General: Yes weight change; No appetite, fatigue, colon cancer, breast cancer or weakness HEENT HEENT: No difficulty swallowing, eye injury, eye surgery, swollen glands or hoarseness Endo Endocrine: Yes thyroid disease; No diabetes mellitus, thyroid cancer, Hair loss, heat intolerance or cold intolerance Musc Musculoskeletal: Yes back problems and arthritis; No rheumatoid arthritis, gout or joint pain Cardio Cardiovascular: Yes heart disease, heart attack and heart stent; No murmur, pacemaker, atrial fibrillation, high blood pressure, palpitations, shortness of breat with exertion or chest pain Psych Psychiatric: Yes depression and anxiety; No hearing voices Resp Respiratory: No shortness of breath, No sleep apnea, No cough, No COPD, No asthma, No emphysema and No wheezing Gastro Gastrointestinal: Yes abdominal pain, No nausea or vomiting, No diarrhea, Yes constipation, No blood in stool, No acid reflux, No hemorrhoids, No ulcers, No gallbladder problem and No black,tarry stools Carlos Manuel Hematologic: Yes blood thinners, No blood disorders, No bleeding, No anemia and No blood clots Neuro Neurologic: No weakness Exam Const General: cooperative, comfortable and no acute distress Nutritional Appearance: average body habitus [facility] Head: normal to inspection Eyes General: appearance normal, both eyes and all related structures Neck Neck: normal visual inspection Chest Chest palpation & inspection: normal inspection of the chest Resp Effort & Inspection: normal respiratory effort Auscultation: clear to auscultation bilaterally Cardio Rate: regular rate Rhythm: regular rhythm GI Inspection: normal to inspection Palpation: soft and no hepatosplenomegaly Auscultation: normal bowel sounds Other: Testicles are descended. The right groin is nontender cannot feel a defect area there is some fibrofatty fullness in the proximal scrotal area. Left proximal scrotal area has more diffuse fibrofatty change which I cannot mobilize reduce. Is not tender to him. Cannot detect actually a distinct hernia easily palpable on the left other than that fatty fullness that will not move. He remains nontender Marked bilateral groin adenopathy. Enlarged lymph nodes somewhat rubbery. Completely nontender and symmetric bilaterally Musc Cervical Spine: normal cervical lordosis Skin General: no rashes or lesions noted Neuro General: patient alert and patient awake Other: Some forgetfulness noted. Extrem General: no calf tenderness Psych Appearance: grossly normal Assessment and Plan Assessment and Plan (1) Enlarged lymph nodes: Status: Acute (2) History of lymphoma: Status: Acute (3) Inguinal hernia: Status: Acute Qualifiers: Obstruction and gangrene presence: without obstruction or gangrene Laterality: unilateral Recurrence: non-recurrent Qualified Code(s): K40.90 - Unilateral inguinal hernia, without obstruction or gangrene, not specified as recurrent Plan 87-year-old gentleman appears to have had acute left groin pain after completing sweeping his floor. That pain seem to then resolve after Dr. Dos Santos attempted a bedside reduction of the suspected hernia. The CAT scan was obtained after that manipulation still showing fibrofatty tissue within the left hernia suggesting that perhaps some of it was partially reduced with manipulation or even perhaps there might have been a different structure within that groin that Dr. Dos Santos was able to reduce. I am suspicious that the patient's left groin pain was secondary to a likely partially reduced hernia. I propose for them a laparoscopic left inguinal herniorrhaphy with possible bilateral herniorrhaphy based upon CT imaging on the right. They are aware that this would require general anesthesia and utilize mesh. The patient has an upcoming appointment in [address] Wilburn to evaluate his recurrent or chronic suspected UTIs as well as hematuria The patient has an upcoming appointment at the end of December with Dr. hCapin Dawn regarding his lymphoma. Family members would like to have an opportunity discussed with the patient technique benefit risk complications alternatives. As he is completely comfortable today there is not an emergency to proceed today but I have cautioned them that waiting for an incarceration would then mandate emergency surgery which always carries more risk. They have had an opportunity to ask and have questions answered. They will recontact me with instructions as to how they would like to proceed. I appreciate the opportunity of assisting with the surgical care. Susan Ness was present with her father today Copy: Dr. Wagner Gross M.D., F.A.C.S Had another episode of severe pain in the left groin. My findings are consistent with bilateral inguinal hernias and I propose for him a laparoscopic left inguinal herniorrhaphy and have otherwise uncomplicated laparoscopic right inguinal herniorrhaphy with mesh. Urinalysis was obtained yesterday not demonstrating acute infection. Culture is pending. He has had an opportunity ask and have questions answered. We will proceed as noted. Cale Gross M.D., F.A.C.S.
--- NOTE | 2022-12-27 11:56 | DCINST_ITS ---
Discharge Instructions Procedure General Surgery Diet Discharge Diet: Light diet - advance as tolerated (if you have questions about your diet instructions, please talk to you doctor.) Activity Discharge Activity: May Not Drive (for 3-5 days or while taking narcotic pain medicine.) May shower in (days): 1 Lifting Restrictions: 10 pounds Additional Activity Instructions:: The patient will go home with Mills catheter in place. It can be removed absolutely first thing on Monday morning December 30, 2022. Cut the sidebar and let the fluid to completely evacuate prior to removing. If the patient has any difficulties voiding contact my office and/or present to the office for Mills catheter replacement. Please try to avoid an emergency room visit for this particular issue I encouraged the use of ice bilateral groins to help limit swelling. Compression undergarments also would be of assistance. Daily fiber supplementation or similar to help avoid constipation recommended Dressing / Incision Call your doctor if your incision/area has: Continuous Slow Oozing, Sudden Increased Bleeding, Increased Pain/ Swelling, Increased Redness and Foul Smelling Discharge Call your doctor if you observe: Fever of 101 or Higher Suture Line Care: Avoid Pulling/Pushing and Avoid Pinching/Bending Additional Dressing/Incision Instructions:: Change or remove dressing in 4 days. Leave steri-strips in place for 1 week. Follow Up Care Please Follow Up With: Cale Gross MD When: Call [phone] to make an appointment to be seen in about 10 days. Test Results: Test results from this visit will be discussed in further detail at your follow- up appointment, if applicable. Discharge Plan Admission Admit Date/Time: 12/27/22 16:23 Primary Reason for Your Visit: Bilateral inguinal hernias Attending Provider: Cale Gross Primary Care Provider: Wagner Gr Consulting Providers: Napoleon Marks Instructions Additional Instructions / Restrictions: If possible please check the patient's blood pressure on December 29, 2022 and if the systolic blood pressures greater than 110 then the carvedilol may be given. Do not provide any carvedilol today December 28, 2022. Discharge Orders/Prescriptions Prescriptions: New hydrocodone-acetaminophen 5-325 mg tablet 1 tab PO Q8H PRN (Reason: pain) 2 Days Qty: 5 0RF Continued carvedilol 3.125 MG tablet 3.125 mg PO BID aspirin 81 MG tablet 81 mg PO DAILY@0800 oxybutynin chloride 10 mg tablet extended release 24hr 10 mg PO DAILY Patient Comments: TAKE 1 TABLET BY MOUTH)ONCE DAILY dutasteride 0.5 mg capsule 0.5 mg PO DAILY levothyroxine 88 mcg tablet 88 mcg PO DAILY hydrocodone-acetaminophen 5-325 mg tablet 1 tab PO Q4H PRN PRN (Reason: Pain) 2 Days Qty: 14 0RF atorvastatin 40 mg tablet 40 mg PO QHS Qty: 90 3RF Referrals / Follow Up: Wagner Gr MD [Primary Care Provider] - Disposition Disposition (needs filled in before D/C Order can be placed): Home, Self Care
[2022-12-27] MEDS: Clindamycin 900 MG/50 ML BAG 75 MG IV (12:01)
[2022-12-27] MEDS: Bupivacaine Mpf 0.5% 30 ML VIAL (12:21)
--- NOTE | 2022-12-27 14:25 | OP.PCM_ITS ---
Report of Operation Date of Procedure: 12/27/22 Pre-Operative Diagnosis: Large symptomatic left inguinal hernia, smaller indire ct right inguinal hernia Post-Operative Diagnosis: Laparoscopic bilateral inguinal herniorrhaphy Left: Extra-large Bard 3D max mesh, lot [id number], reference [id number], expiry date 07/16/27 Right: Large Bard 3D max mesh, lot number [id number], reference [id number], expiry date 05/17/2027 Surgery/Procedure Performed:: Laparoscopic bilateral inguinal herniorrhaphy with mesh Description of Surgical Findings:: Timeout informed consent was obtained. 87-year-old gentleman was taken to the operating placed on the table underwent general endotracheal intubation esthesia. Clindamycin 900 g were given intravenously. The abdomen was sterilely prepped and draped. 0.5% Marcaine was used as a local anesthetic. Throughout the procedure a total of 30 cc was used. Skin sites were Deyvi size. A vertical infraumbilical incision was created holding sutures of 0 Vicryl placed varies needle inserted saline drop test performed the abdomen was insufflated with CO2 to a pressure of 10 mmHg pressure. 10 mm trocar inserted. 10 mm laparoscope inserted. There were multiple adhesions from remote appendectomy to the right lower quadrant. I placed a 5 mm port in the left lower quadrant and then using electrified scissors transected the omental adhesions from the anterior abdominal wall. This allowed me then to place a 5 m m right lower quadrant port. The peritoneum superior and lateral to internal ring on the left was incised and carried medially. There is evidence of a sizable left inguinal hernia. There was a very large extensive lipoma and fibrofatty tissue extending circumferentially around the cord. Tediously this was dissected free. Where needed hemostasis obtained with electrified scissors and Hem-o-albino clips. Unfortunately this fibrofatty mass was very large and had significant mount of vascularity and so this dissection was extraordinarily slow and tedious. Finally was able to identify what I felt was the majority of the cord structures having free majority of his fibrofatty tissue free. Was able to dissect the direct space. I then incised the peritoneum superior lateral to the internal ring on the right and freed that peritoneum able to identify the indirect hernia on the right as well as the direct space. Having dissected both sides free I placed an extra-large Bard 3D max mesh on the left and secured laterally medially and superiorly with secure strap. I felt that I had very good coverage of the defect.. I did have to secure it with an extra suture inferior laterally to assure that the fibrofatty tissue had less of a chance of gaining access beneath the mesh. I used a Bard 3D max large mesh on the right. That also was secured at the midline overlapping the other mesh with secure strap and then laterally and superiorly. The right-sided mesh also appeared to be nicely cover defect areas. I then aspirated both groins free. There was some bloody exudate on the left. Having aspirated that an estimated for the entire procedure approximately 50 cc of blood loss I then placed Floseal on the left and Surgicel and where needed a couple pieces of fibular. Hemostasis a ppeared to be intact. I approximated the peritoneum using secure strap. On the right to secure strap and several Hem-o-albino clips. Complete obliteration to the mesh was achieved bilaterally. The abdomen was irrigated and aspirated free. Testicles were manually checked and were noted to be in the scrotum. Scrotum is quite boggy due to the amount of dissection. Labs not indicated the CO2. The fascia at the umbilicus approximated with 2-0 Vicryl gprtdh-th-setih suture. Skin edges were approximated with interrupted 4 Monocryl subdermal stitches. Steri-Strips Telfa OpSite dressings applied. It is of note that using the local during the procedure laparoscopic antral ileal inguinal nerve blocks were performed bilaterally. Specimens none. Drains none. Blood loss 50 cc. The patient was taken to recovery room in satisfied condition without complication Cale Gross M.D., F.A.C.S. Surgeon: Cale Gross Type of Anesthesia: General and Local
--- NOTE | 2022-12-27 16:19 | PCM.PN.SRG ---
Subjective Subjective The patient has recently been seen in the emergency room twice for 10 out of 10 left groin pain. Although laparoscopic bilateral ileal inguinal nerve blocks were performed during his laparoscopic bilateral inguinal herniorrhaphy the patient is complaining of a 10 out of 10 left groin pain. He appears to breathe breath holding. Because of the amount of dissection that was performed we will not be able to give nonsteroidal anti-inflammatory agents. Unfortunately we will need to hold the patient overnight for observation. Objective Data Objective Data Vital Signs: Vital Signs Temp Pulse Resp BP Pulse Ox O2 Del Method O2 Flow Rate 97.6 F L 63 16 96/60 92 Nasal Cannula 2 12/27/22 15:45 12/27/22 16:00 12/27/22 16:00 12/27/22 16:00 12/27/22 16:00 12/27/22 16:00 12/27/22 16:00 Oxygen Flow Rate (L/min) 2 Oxygen Delivery Method Nasal Cannula Weight: 171 lb 15.369 oz Body Mass Index (BMI) 24.6 Intake & Output: Intake and Output for Last 24 Hours 12/25/22 12/26/22 12/27/22 23:59 23:59 23:59 Intake Total 50 / 50 Balance 50 / 50 Physical Exam GI GI Narrative: Abdominal exam is absolutely benign. The dressings are clean dry and intact the abdomen is soft and supple without focal area of pain low tenderness or guarding or rebound. Bilateral groins are supple. Assessment & Plan Assessment/Plan (1) Postoperative pain, acute, groin: QUALIFIERS: Laterality: left Qualified Code(s): R10.32 - Left lower quadrant pain; G89.18 - Other acute postprocedural pain PLAN: Postoperative left groin pain. Clinical findings unremarkable however it does not appear that the current pain control management will allow us to discharge him. I am not finding anything adverse with the operative procedure performed. I believe that in part the inability to use NSAIDs is complicating her treatment options. Cale Gross M.D., F.A.C.S.
[2022-12-27] MEDS: Ipratropium/Albuterol Sulfate 3 ML AMPUL.NEB INHALATION (16:47)
--- NOTE | 2022-12-27 17:21 | SUR.PHASEI ---
PATIENT FAMILY UPDATED AT THIS TIME. DAUGHTER CAROL INFORMED THIS NURSE OF RECENT ER ADMISSION FOR LOW BP AND CHANGES MADE TO HOME MEDICATIONS.
[2022-12-27] MEDS: Gabapentin 100 MG Capsule PO (18:47)
[2022-12-27] MEDS: Acetaminophen 325 MG Tablet 650 MG PO (18:47)
[2022-12-27] MEDS: Tolterodine Tartrate 2 MG CAP.SA PO (18:48)
[2022-12-27] MEDS: Psyllium 1 PACKET PO (23:07)
[2022-12-28 01:21] VITALS: BP 97/61; PULSE 66; RESP 16; TEMP 36.7; O2SAT 97
[2022-12-28] MEDS: Acetaminophen 325 MG Tablet 650 MG PO ×2 (02:28→10:53)
--- NOTE | 2022-12-28 04:51 | NURSING ---
Mills catheter placed at about 2230 12/27/22 related to patient experiencing difficulty urinating. Pt able to void 50ml clear yellow urine, post-void residual of greater than 500ml. Pt OOB ambulating in hallway this AM with walker, tolerating well.
[2022-12-28 05:21] VITALS: BP 98/64; PULSE 70; RESP 16; TEMP 36.8; O2SAT 96
--- NOTE | 2022-12-28 05:53 | PCM.PN.SRG ---
Subjective Subjective Patient is alert denies acute distress. He notes soreness in bilateral groins but not acute severe pain Objective Data Objective Data Vital Signs: Vital Signs Temp Pulse Resp BP Pulse Ox O2 Del Method O2 Flow Rate 98.0 F 66 16 97/61 97 Room Air 2 12/28/22 01:21 12/28/22 01:21 12/28/22 01:21 12/28/22 01:21 12/28/22 01:21 12/28/22 01:21 12/27/22 17:53 Oxygen Flow Rate (L/min) 2 Oxygen Delivery Method Room Air Weight: 171 lb 15.369 oz Body Mass Index (BMI) 24.6 Intake & Output: Intake and Output for Last 24 Hours 12/26/22 12/27/22 12/28/22 23:59 23:59 23:59 Intake Total 177 / 177 Output Total 725 / 725 Balance -548 / -548 Physical Exam Resp normal respiratory effort Cardio regular rate and regular rhythm GI GI Narrative: Soft, low-grade bowel sounds, bilateral groins amazingly soft with no current ecchymosis, Mills catheter in place Assessment & Plan Assessment/Plan (1) Postoperative pain, acute, groin: QUALIFIERS: Laterality: left Qualified Code(s): R10.32 - Left lower quadrant pain; G89.18 - Other acute postprocedural pain PLAN: Patient's postoperative pain is improved. Plan for discharge today. He received a dose of gabapentin last night but secondary to his age I will not prescribe that for home-going at this time. He is written and encouraged to take acetaminophen and a very small prescription of [place] has been provided for outpatient use. (2) Urinary retention: PLAN: The patient has chronic urinary retention is not being treated medically and sees urologist . A Mills catheter was placed to assist with acute urinary retention. At this point anticipate leaving this in until early Monday morning having home removal and then if the patient has difficulty having return to my office for catheter replacement in an attempt to avoid any unnecessary ER visits. The patient states he has further follow-up as an outpatient already scheduled with Dr. Peres.
[2022-12-28] MEDS: Levothyroxine 88 MCG Tablet PO (06:25)
[2022-12-28 07:48] VITALS: BP 136/63; PULSE 62; RESP 18; TEMP 36.8; O2SAT 95
[2022-12-28 07:50] VITALS: O2SAT 92
[2022-12-28] MEDS: Gabapentin 100 MG Capsule PO (07:56)
[2022-12-28] MEDS: oxyCODONE 5 MG Tablet PO ×2 (07:56→13:31)
--- NOTE | 2022-12-28 09:07 | PHA.DC_ITS ---
Pharmacy [facility] Pharm[facility] Service has performed discharge medication reconciliation and counseling for this patient. The patient's discharge medication list was reviewed for discrepancies and discrepancies were resolved. The patient was counseled on the following discharge medications and changes in medications for homegoing were reviewed. The Reason for Use, instructions for use, and potential side effects were reviewed for all new medications. The patient's questions regarding all of their medications were answered. 1. Hydrocodone/acetaminophen 5/325 mg PO Q4H PRN pain The patient demonstrated some understanding but would benefit from further education and reinforcement. Medications at Discharge Home Medications atorvastatin 40 mg tablet [address] rG manages cholesterol #90 tabs 05/24/18 carvedilol 3.125 mg tablet 3.125 mg PO BID bp 01/29/20 aspirin 81 mg tablet,delayed release 81 mg PO DAILY@0800 [facility] 03/09/20 dutasteride 0.5 mg capsule 0.5 mg PO DAILY 12/08/22 oxybutynin chloride 10 mg tablet,extended release 24 hr 10 mg PO DAILY 12/08/22 hydrocodone-acetaminophen 5-325mg 5mg-325mg 1 tab PO Q4H PRN PRN Pain 2 days #14 TABLETS 12/23/22 levothyroxine 88 mcg tablet 88 mcg PO DAILY 12/26/22 hydrocodone-acetaminophen 5-325mg 5mg-325mg 1 tab PO Q8H PRN pain 2 days #5 tabs 12/27/22
--- NOTE | 2022-12-28 09:11 | CASEMGMT ---
Addendum entered by Tana Garcia 12/28/22 14:23: [facility] has accepted pt for services. FREDI MEDINA into pt room, pt has been bob'd. TC to pt son Chapin, he is aware of the [facility] that will be out to see pt. Addendum entered by Tana Garcia 12/28/22 13:03: FREDI MEDINA into pt room, pt son and dil present. Pt will be dc'ing to their home at [address]. draftsperson is son Chapin Contreras at [phone]. Pt and family have chosen the following [facility] 1.[facility] 2. [facility] 3. [facility]. Discussed services to come to the home with pt and family. They deny further needs. DC librarian assistant to send referrals via careport. Original Note: FREDI MEDINA into pt room as it is noted pt to dc own camacho on Monday. Pt sitting up in chair. Pt with eyes closed and states he is in pain. Pt states he is confused. Asked pt if he has someone at home to assist him, pt states he lives alone but his dtr Jennifer comes in every day at noon. Pt states he is aware that he is to go home today. CY Garces came in room as well. Pt agreeable to calling dtr Jennifer. Discussed [facility] with Mili, therapy to be ordered for eval.
--- NOTE | 2022-12-28 09:22 | CASEMGMT ---
Discharge Planning A list of HH providers including quality and resource use data and consistent with the patient's preferred geographic region, medical needs, and insurance network was created in [facility] Guide.? This list was provided to the RN ADAM. Shelbie Andrea, Discharge Planning Asst
[2022-12-28] MEDS: Tolterodine Tartrate 2 MG CAP.SA PO (10:43)
[2022-12-28] MEDS: Psyllium 1 PACKET PO (10:43)
[2022-12-28] MEDS: Finasteride 5 MG Tablet PO (10:44)
--- NOTE | 2022-12-28 11:47 | CASEMGMT ---
Social Work SW met with pt, pt's son Chapin and daughter in law Elena Contreras to discuss advance directives.?Chapin confirms pt has completed a living will and health care POA naming his daughter Elena Ness.? Pt notified that documents are not on file at [facility] and SW requested they be brought in for scanning into the EMR.? CAMILA Jaquez
[2022-12-28 13:22] VITALS: BP 107/68; PULSE 86; RESP 16; TEMP 36.7; O2SAT 96
--- NOTE | 2022-12-28 13:49 | CASEMGMT ---
Discharge Planning HH referral sent via [facility] to [facility] and [facility]. Shelbie Andrea, Discharge Planning Asst.
--- NOTE | 2022-12-28 14:21 | CASEMGMT ---
Discharge Planning [facility] has accepted patient. RN CM updated. Shelbie Andrea, Discharge Planning Asst.
== END 2022-12-28 13:54 | disposition home health service (06) ==
LOC: SDC 17:16 → MS3 17:16
PROVIDERS: Anesthesiology; Admitting Provider Surgery; PCP Family Medicine; Referring Provider Surgery; Visit Provider Surgery
PROC: (CPT 49650; principal; 2022-12-27 11:45)
DX: K40.30 Unilateral inguinal hernia, with obstruction, without gangrene, not specified as recurrent (principal); E11.9 Type 2 diabetes mellitus without complications; I10 Essential (primary) hypertension; Z95.5 Presence of coronary angioplasty implant and graft; Z87.891 Personal history of nicotine dependence; I25.10 Atherosclerotic heart disease of native coronary artery without angina pectoris; R31.9 Hematuria, unspecified; Z86.16 Personal history of COVID-19; E78.00 Pure hypercholesterolemia, unspecified; Z79.899 Other long term (current) drug therapy; Z79.82 Long term (current) use of aspirin; R41.3 Other amnesia; E03.9 Hypothyroidism, unspecified; Z79.890 Hormone replacement therapy; K40.90 Unilateral inguinal hernia, without obstruction or gangrene, not specified as recurrent
CPT/HCPCS: 49650; 00840; 36415; 51702; 81001; 84443; 87086; 87088; 94640; 97162; 97166; 99221; J7120; C1781; G0378; J2405

== ENCOUNTER 2022-12-30 20:56 | Observation (INO) | payer MEDICARE, SELFPAY ==
[2022-12-30 20:58] VITALS: BP 145/78; PULSE 104; RESP 18; TEMP 35.9; O2SAT 96
[2022-12-30 21:01] VITALS: BP 145/78; PULSE 104; RESP 20; TEMP 35.9; O2SAT 96
--- NOTE | 2022-12-30 21:19 | EDS_ITS ---
HPI History of Present Illness Chief Complaint: Complaint Detail of Chief Complaint: Weakness, inability to urinate, constipation status post bilateral herniorr Informant: family Onset/Context/Timing Onset: - (Documented HPI narrative) Context: Sudden Onset Timing: Continuous Quality: Weakness, poor p.o. intake Location: Generalized Current Severity: Moderate Maximum Severity: Severe Worsened by: Inability to eat or drink and inability to urinate Relieved by: Nothing Associated Symptoms Associated Symptoms: History limited Narrative Narrative: Patient is an 87-year-old male who was discharged home on Monday after bilateral laparoscopic herniorrhaphy by Dr. Cale Gross on Monday. He had a large left inguinal hernia and a small indirect right hernia. He has not been able to urinate since the Mills was removed. He complains of pressure. Family states he is just weak. He is unable to stand on his own. He is not a good informant because he is not able to give much of a history. Family supplemented what they could. There is been no documented fever. He does endorse thirst, dry mouth. He does complain of abdominal discomfort and distention. He has not urinated since the Mills was removed. He has not had a cough. He denies shortness of breath. He does have history of coronary disease with placement of 2 stents. There is no history of congestive heart failure. Prior similar symptoms: No Recent Illness/Hospitalization: Yes [facility] Medical History Aneurysm of infrarenal abdominal aorta Anxiety Arthritis Atherosclerotic heart disease of [place] coronary artery without angina pectoris Cancer Cardiology follow-up encounter Dementia Depression Essential hypertension Former smoker Gastric reflux Hard of hearing High cholesterol History of echocardiogram History of lateral wall myocardial infarction Left ventricular systolic dysfunction Lymphoma Memory deficit Pneumonia due to COVID-19 virus Pure hypercholesterolemia Stented coronary artery (~02/22/16) Thyroid disease Type 2 diabetes mellitus Wears glasses Wears hearing aid Wears partial dentures Home Medications atorvastatin 40 mg tablet [address] Gr manages cholesterol #90 tabs 05/24/18 [Rx Last Taken 03/09/20] carvedilol 3.125 mg tablet 3.125 mg PO BID bp 01/29/20 [History Last Taken 12/27/22] aspirin 81 mg tablet,delayed release 81 mg PO DAILY@0800 [facility] 03/09/20 [History Last Taken 12/24/22] dutasteride 0.5 mg capsule 0.5 mg PO DAILY 12/08/22 [History Last Taken Unknown] oxybutynin chloride 10 mg tablet,extended release 24 hr 10 mg PO DAILY 12/08/22 [History Last Taken Unknown] hydrocodone-acetaminophen 5-325mg 5mg-325mg 1 tab PO Q4H PRN PRN Pain 2 days #14 TABLETS 12/23/22 [Rx Last Taken Unknown] levothyroxine 88 mcg tablet 88 mcg PO DAILY 12/26/22 [History Last Taken 12/27/22] hydrocodone-acetaminophen 5-325mg 5mg-325mg 1 tab PO Q8H PRN pain 2 days #5 tabs 12/27/22 [Rx Last Taken Unknown] Allergy/AdvReac Type Severity Reaction Status Date / Time Penicillins Allergy Hives Verified 12/30/22 20:57 tree and shrub pollen Allergy Other Verified 12/30/22 20:57 lisinopril AdvReac Mild cough Verified 12/30/22 20:57 Family History Father , age [address] [place] CAD (coronary artery disease) Myocardial infarction Sudden cardiac Mother Diabetes Surgical History History of appendectomy History of left heart catheterization Hx of bilateral cataract extraction Hx of cystoscopy Hx of tonsillectomy Presence of coronary angioplasty implant and graft (~02/22/16) Social History Smoking Status: Former smoker how long ago did patient quit smokin years ago alcohol intake: current alcohol intake frequency: a few times a week Alcohol type: beer substance use type: does not use caffeine: Yes Type: coffee Number of servings: 2 ROS ROS ED Review of Systems ROS Unobtainable: due to mental status Constitutional Constitutional ED: Denies chills or fever(s) Eyes Eyes: Denies blurry vision or change in vision ENT ENT ED: Reports other Details: He endorses dry mouth and thirst. ; Denies rhinorrhea or sore throat Cardiovascular Cardiovascular: Denies chest pain or palpitations Respiratory/Chest Respiratory/Chest: Denies cough, dyspnea or dyspnea on exertion Gastrointestinal Gastrointestinal: Reports abdominal pain, constipation and nausea; Denies diarrhea, melena or vomiting Genitourinary Genitourinary ED: Reports other Details: Has been unable to urinate since Mills was removed. Musculoskeletal Musculoskeletal: Denies arthralgias, back pain or myalgias Integumentary Denies rash Neurologic Neurologic: Reports weakness Psychiatric Psychiatric: Denies anxiety Endocrine Endocrinology: Denies cold intolerance or heat intolerance Hematologic/Lymphatic Hematologic/Lymphatic: Reports systems reviewed and no addt'l complaints, except as documented EXAM Physical Exam Const Vital Signs: 12/30/22 20:58 12/30/22 21:01 Temperature 96.6 F L 96.6 F L Temperature Source Temporal Temporal Pulse Rate 104 H 104 H Respiratory Rate 18 20 H Blood Pressure 145/78 H 145/78 H Blood Pressure Mean 100 100 Pulse Ox 96 96 Oxygen Delivery Method Room Air Room Air Positive well nourished and well developed Constitutional Narrative: Not look well. He appears ill but not toxic. General Appearance ED: well developed and pallor; Negative for cyanotic, diaphoretic or NAD HEENT Reports dry mucous membranes HEENT Narrative: Is atraumatic normocephalic. Ears normal. Nares patent. Posterior pharynx out erythema or exudate. Uvula midline. Mouth ED: Yes dry mucous membranes Mouth: dry mucous membranes Eyes PERRL and EOMs intact bilaterally General Eye ED: Yes pale conjunctiva; Negative for scleral icterus Neck no lymphadenopathy, supple and no JVD Chest Wall inspection of chest normal and palpation of chest normal Resp normal respiratory effort and No clear to auscultation bilaterally Resp Narrative: Is egophony with equivocal increased vocal fremitus right lower lobe posteriorly. Auscultation: rales right 1/3 way up Cardio regular rhythm, S1 normal heart sound, S2 normal heart sound and no murmurs Rate: tachycardic GI GI Narrative: Is distended tympanitic with decreased bowel sounds. He has minimal tenderness that is appropriate near the port sites. There is no guarding or rebound tenderness. Bladder is enlarged to percussion. Palpation: soft; Negative for splenomegaly Back/Spine no CVA tenderness Thoracic Spine / Upper Back: Negative for thoracic spinal tenderness Lumbar Spine / Lower Back: Negative for lumbar spinal tenderness Extremity normal to inspection Neuro CN's II-XII intact bilaterally and no sensory deficits noted Sensorium / Orientation: Negative for alert Motor Exam: strength 5/5 throughout Psych Mood & Affect: depressed Skin no rashes or lesions noted, no wounds and No skin turgor normal General Skin Exam: pallor; Negative for elasticity normal or jaundice MDM MDM MDM Narrative Medical decision making narrative: Clinically patient is dehydrated. Because of the abnormal oscillatory findings right lower lobe posteriorly x-ray was obtained to assess for pneumonia. CBC to assess white count and H&H. Basic metabolic panel to assess renal function, electrolytes and anion gap. IV fluids were ordered. 1 L was ordered since patient has no history of heart failure. Dr. Cale Gross's note was reviewed. History & Record Review Additional record(s) reviewed:: Prior inpatient record and Prior labs Lab Data Attestation: I reviewed the patient's lab results. Lab results narrative: Count is normal. There is predominantly lymphocytes. Hemoglobin is 8.8 and is a drop of 2 g from prior. Basic metabolic panel reveals an elevated BUN of 22 from baseline. Creatinine is 1.3 which is baseline with a an estimated GFR of 56. Glucose elevated 193 with a normal CO2 and anion gap. Urine is clear and this slightly dark. Labs: Laboratory Results - last 24 hr 12/30/22 21:24 WBC 4.6 RBC 2.91 L Hgb 8.8 L Hct 27.8 L MCV 95.5 H MCH 30.2 MCHC 31.7 L RDW Std Deviation 52.8 H RDW Coeff of [place]ont 15.0 H Plt Count 103 L MPV 9.9 Immature Gran % (Auto) 3.900 H Neut % (Auto) 23.5 L Lymph % (Auto) 67.0 H [place] % (Auto) 4.7 Eos % (Auto) 0.0 Baso % (Auto) 0.9 Absolute Neuts (auto) 1.1 L Absolute Lymphs (auto) 3.11 Nucleated RBC % 0 Sodium 134 L Potassium 4.1 Chloride 100 Carbon Dioxide 29.0 Anion Gap 5 BUN 22 H Creatinine 1.30 Estim Creat Clear Calc 42.90 Est GFR (MDRD) Af Amer 68 Est GFR (MDRD) Non-Af 56 L BUN/Creatinine Ratio 16.9 Glucose 193 H Calcium 8.3 L Radiography Chest X-Ray - ED: 2 View (Reviewed interpreted by me at 2145 as negative. Inspiratory volumes limited. Cardiac silhouette and size normal. Lung pa renchyma is unremarkable. There is no effusion or infiltrate. Perihilar regions unremarkable. Osseous structures are unremarkable.) Discharge Plan Dx/Rx/DC Orders Clinical Impression: Mild dehydration, Essential hypertension, Urinary retention, Atherosclerotic heart disease of [place] coronary artery without angina pectoris, Acute constipation, Post-operative pain, Type 2 diabetes mellitus with hyperglycemia, Sinus tachycardia seen on surveillance monitor, Failure to thrive in adult Disposition Disposition: Acute Care Hospital [facility] [place] [facility]
[2022-12-30 21:25] VITALS: BMI 25.2
[2022-12-30 21:33] LABS: Absolute Lymphocyte Count 3.11 X10^3/uL (0.83-4.51); Absolute Neutrophil Count 1.1 X10^3/uL (2.0-7.7); Basophil# 0.04 X10^3/uL; Basophil% 0.9 % (0-1); Hematocrit 27.8 % (40-54); Hemoglobin 8.8 g/dL (13.0-16.5); Lymphocyte # 3.11 X10^3/ul (0.83-4.51); Mean Corp Hgb Conc 31.7 g/dL (32-36); Mean Corpuscular Hgb 30.2 pg (27.0-32.0); Mean Corpuscular Volume 95.5 fL (80-94); Mean Platelet Vol. 9.9 fl (6.2-12.0); Monocyte# 0.22 X10^3/uL; Monocyte% 4.7 % (0-10); NRBC Flagged by Analyzer 0 % (0-5); Neutrophil # 1.09 X10^3/uL (2.7-7.7); Neutrophil % 23.5 % (47-70); Platelet Count 103 K/mm3 (150-450); RBC Distribution Width SD 52.8 fl (35.1-43.9); Red Blood Count 2.91 M/mm3 (4.6-6.2); White Blood Count 4.6 K/mm3 (4.4-11.0)
--- NOTE | 2022-12-30 21:35 | RAD_ITS ---
EXAM: XR CHEST, 2 VIEWS CLINICAL INDICATION: Rales right lower lobe TECHNIQUE: Frontal and lateral views of the chest. COMPARISON: Previous chest radiographs of 12/08/2022, 03/21/2020, and 03/14/2020. FINDINGS: LUNGS AND PLEURAL SPACES: Minimal discoid atelectasis at the right lung base. No consolidation or edema. No pneumothorax. No effusion. HEART: Upper normal heart size with normal pulmonary vasculature. MEDIASTINUM: Thoracic aorta remains mildly elongated and calcific. BONES/JOINTS: No acute osseous abnormality. 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 SOFT TISSUES: Unremarkable. RAD/Chest PA and Lateral IMPRESSION: No significant interval change. No acute cardiopulmonary disease process identified. Electronically Signed: Gt Grajeda MD at 22:08 EDT ,
[2022-12-30 21:44] LABS: Anion Gap 5 (5-15); BUN 22 mg/dL (7-18); BUN/Creat Ratio 16.9 RATIO (10-20); Calcium,Total 8.3 mg/dL (8.5-10.1); Chloride 100 mmol/L (98-107); EST Glomerular Filtration Rate 56 mL/min (>60); Est Glom Filt Rate - Afr Amer 68 mL/min (>60); Glucose 193 mg/dL (74-106); Potassium 4.1 mmol/L (3.5-5.1); Sodium Level 134 mmol/L (136-145)
--- NOTE | 2022-12-30 21:52 | PCM.HP.STD ---
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 Patient has been more weak after the procedure than before. He lives with his son and his son's family who is unable to take care of patient. Patient has a history of urinary retention and has an appointment coming up with Dr. Peres. After his procedure because he could not urinate a Mills catheter was left in his bladder. When he went home next day home care pulled the catheter out as planned. However patient was unable to urinate so his family tried to hydrate him in the hope that he will urinate yet he could not urinate. Family called surgeon on-call and patient was directly to come to the emergency department. On this presentation a Mills catheter was placed in his bladder. Also patient has not been eating [facility] Medical History Aneurysm of infrarenal abdominal aorta Anxiety Arthritis Atherosclerotic heart disease of [place] coronary artery without angina pectoris Cancer Cardiology follow-up encounter Dementia Depression Essential hypertension Former smoker Gastric reflux Hard of hearing High cholesterol History of echocardiogram History of lateral wall myocardial infarction Left ventricular systolic dysfunction Lymphoma Memory deficit Pneumonia due to COVID-19 virus Pure hypercholesterolemia Stented coronary artery (~02/22/16) Thyroid disease Type 2 diabetes mellitus Wears glasses Wears hearing aid Wears partial dentures Home Medications atorvastatin 40 mg tablet [address] Gr manages cholesterol #90 tabs 05/24/18 [Rx Last Taken 12/30/22] carvedilol 3.125 mg tablet 3.125 mg PO BID bp 01/29/20 [History Last Taken 12/30/22] aspirin 81 mg tablet,delayed release 81 mg PO DAILY@0800 [facility] 03/09/20 [History Last Taken 12/30/22] dutasteride 0.5 mg capsule 0.5 mg PO DAILY 12/08/22 [History Last Taken Unknown] oxybutynin chloride 10 mg tablet,extended release 24 hr 10 mg PO DAILY 12/08/22 [History Last Taken 12/30/22] hydrocodone-acetaminophen 5-325mg 5mg-325mg 1 tab PO Q4H PRN PRN Pain 2 days #14 TABLETS 12/23/22 [Rx Last Taken Unknown] levothyroxine 88 mcg tablet 88 mcg PO DAILY 12/26/22 [History Last Taken 12/30/22] hydrocodone-acetaminophen 5-325mg 5mg-325mg 1 tab PO Q8H PRN pain 2 days #5 tabs 12/27/22 [Rx Last Taken 12/30/22] Allergy/AdvReac Type Severity Reaction Status Date / Time Penicillins Allergy Hives Verified 12/30/22 20:57 tree and shrub pollen Allergy Other Verified 12/30/22 20:57 lisinopril AdvReac Mild cough Verified 12/30/22 20:57 Family History Father , age 39 from [place] CAD (coronary artery disease) Myocardial infarction Sudden cardiac Mother Diabetes Surgical History History of appendectomy History of left heart catheterization Hx of bilateral cataract extraction Hx of cystoscopy Hx of tonsillectomy Presence of coronary angioplasty implant and graft (~02/22/16) Social History Smoking Status: Former smoker how long ago did patient quit smokin years ago alcohol intake: current alcohol intake frequency: a few times a week Alcohol type: beer substance use type: does not use caffeine: Yes Type: coffee Number of servings: 2 ROS ROS Narrative Pertinent positives and pertinent negatives as noted in HPI. All other systems were reviewed and are negative Vital Signs Vital Signs Vital Signs: 12/30/22 20:58 12/30/22 21:01 Temperature 96.6 F L 96.6 F L Temperature Source Temporal Temporal Pulse Rate 104 H 104 H Respiratory Rate 18 20 H Blood Pressure 145/78 H 145/78 H Blood Pressure Mean 100 100 Pulse Ox 96 96 Oxygen Delivery Method Room Air Room Air Weight Weight: 79.8 kg Body Mass Index (BMI) 25.2 Physical Exam Narrative Physical exam: General: Well-nourished, well-developed. Head: Normocephalic, atraumatic, no tenderness Eyes: Vision is grossly intact. EOMI ENT, no trauma, dry mucous membranes, no rhinorrhea Neck: Nontender, No thyromegaly. CVS: Regular rate and rhythm. S1-S2 present. No murmur, gallop or rub. Respiratory : clear to auscultation bilaterally, chest wall nontender Abdomen: Soft, nontender, nondistended, normal bowel sounds, no masses : Mills catheter in place Back: Nontender, no CVA tenderness, no midline spinal tenderness, deformities, step-offs Extremities: Nontender full range of motion, no trauma Skin: Normal color, no trauma, abrasions Neuro: Alert, oriented, cranial nerves II through XII grossly intact. Psychiatry: Normal mood. Normal affect. Not depressed. Not anxious. Results Lab / Micro Data 12/31/22 05:49 12/31/22 05:49 Labs: Laboratory Results - last 24 hr 12/30/22 21:24: WBC 4.6, RBC 2.91 L, Hgb 8.8 L, Hct 27.8 L, MCV 95.5 H, MCH 30.2, MCHC 31.7 L, RDW Std Deviation 52.8 H, RDW Coeff of [place]ont 15.0 H, Plt Count 103 L, MPV 9.9, Immature Gran % (Auto) 3.900 H, Neut % (Auto) 23.5 L, Lymph % (Auto) 67.0 H, [place] % (Auto) 4.7, Eos % (Auto) 0.0, Baso % (Auto) 0.9, Absolute Neuts (auto) 1.1 L, Absolute Lymphs (auto) 3.11, Nucleated RBC % 0, Sodium 134 L, Potassium 4.1, Chloride 100, Carbon Dioxide 29.0, Anion Gap 5, BUN 22 H, Creatinine 1.30, Estim Creat Clear Calc 42.90, Est GFR (MDRD) Af Amer 68, Est GFR (MDRD) Non-Af 56 L, BUN/Creatinine Ratio 16.9, Glucose 193 H, Calcium 8.3 L Assessment & Plan Assessment/Plan (1) Failure to thrive in adult: (2) Type 2 diabetes mellitus with hyperglycemia: QUALIFIERS: Diabetes mellitus group home insulin use: without group home use Qualified Code(s): E11.65 - Type 2 diabetes mellitus with hyperglycemia (3) Acute constipation: (4) Urinary retention: PLAN: Plan Adult failure to thrive PT and OT to work with patient. Case management consult. Status post hernia repair General surgery consult Urinary retention Continue with Mills When the patient get his strength back he can see urology. Dry mucous membrane Received normal saline bolus in the emergency department. Maintenance normal saline hydration continue to. Diabetes mellitus Blood glucose is slightly above goal. Accu-Chek with correction scale insulin ordered. DVT prophylaxis Subcutaneous Lovenox ordered. Time spent in the patient's overall evaluation,decision-making process, review of diagnostic data, adjustment of management, discussion with other providers, nursing and ancillary staff involved in patient's care documentation, 45 minutes. Charges/Coding Visit Charges Inpatient E&M: 91810 Init Hosp L2
[2022-12-30] MEDS: 0.9% Normal Saline (1000mL) 1,000 ML 1000 ML IV (21:54)
[2022-12-30 22:00] VITALS: BP 114/63; PULSE 86; RESP 22; TEMP 36.6; O2SAT 93
[2022-12-30 22:07] LABS: Mucous, Urine 0 SEEN /hpf (<or=2+); Squamous Epithelial Cells - UA 0 SEEN /hpf (0-5)
[2022-12-30 22:20] LABS: Color, Urine Yellow (Yellow); Glucose, Dipstick Normal (Normal); Ketone-Dipstick 5 mg/dl (Negative); Leukocyte Esterase-Dipstick 25 /ul (Negative); Nitrite-Dipstick Negative (Negative); Occult Blood-Urine 25 /ul (Negative); Protein-Dipstick 100 mg/dl (Negative); Urine Bilirubin Dipstick Negative (Negative); Urine Clarity Clear (Clear); Urine Urobilinogen Normal (Normal)
[2022-12-30 22:27] LABS: Bacteria 1+ /hpf (None Seen); Red Blood Cells-Urine 0-5 SEEN /hpf (0-5); White Blood Cells 0-5 SEEN /hpf (0-5)
[2022-12-30 22:40] VITALS: BP 135/59; PULSE 86; RESP 24; TEMP 36.6; O2SAT 96
[2022-12-30 23:07] VITALS: BP 147/63; PULSE 85; RESP 18; TEMP 37.4; O2SAT 96
[2022-12-30 23:14] VITALS: BMI 24.6
[2022-12-31] MEDS: Carvedilol 3.125 MG TABLET PO ×3 (00:24→15:57)
[2022-12-31] MEDS: Atorvastatin Calcium 40 MG Tablet PO ×2 (00:24→21:30)
[2022-12-31 01:12] LABS: Bedside Glucose 156 mg/dL (74-106)
[2022-12-31 03:37] VITALS: BP 165/73; PULSE 79; RESP 18; TEMP 37; O2SAT 96
[2022-12-31] MEDS: 0.9% Normal Saline (1000mL) 1,000 ML 100 ML IV (03:50)
[2022-12-31] MEDS: Levothyroxine 88 MCG Tablet PO (06:45)
[2022-12-31 07:03] LABS: Absolute Neutrophil Count 0.9 X10^3/uL (2.0-7.7); Basophil# 0.01 X10^3/uL; Basophil% 0.2 % (0-1); Eosinophil# 0.03 X10^3/uL; Eosinophils% 0.7 % (0-5); Lymphocyte % 74.5 % (19-41); Mean Corpuscular Hgb 30.4 pg (27.0-32.0); Mean Corpuscular Volume 95.1 fL (80-94); Mean Platelet Vol. 10.1 fl (6.2-12.0); Monocyte# 0.13 X10^3/uL; Monocyte% 2.9 % (0-10); NRBC Flagged by Analyzer 0 % (0-5); Neutrophil # 0.88 X10^3/uL (2.7-7.7); Neutrophil % 19.9 % (47-70); POSITIVE COUNT YES; POSITIVE DIFFERENTIAL YES; POSITIVE MORPHOLOGY YES; Platelet Count 81 K/mm3 (150-450); RBC Distribution Width CV 14.9 % (11.6-14.6); RBC Distribution Width SD 51.9 fl (35.1-43.9); Red Blood Count 2.63 M/mm3 (4.6-6.2); White Blood Count 4.4 K/mm3 (4.4-11.0)
[2022-12-31 07:09] LABS: Differential Indicated SCAN CRITERIA MET
--- NOTE | 2022-12-31 07:39 | PN.HOSP_ITS ---
Reason for Visit Reason for Visit: Constipation/inability urinate/generalized weakness Subjective Subjective Mr. Gramajo is an 87-year-old white male who presented to the emergency department at [facility] on 12/30/2022 due to generalized weakness, constipation, and urinary retention that have been problematic since he had a bilateral laparoscopic herniorrhaphy by Dr. Cale Gross on Monday. He was discharged home on Monday. Family reported that he has been unable to urinate since the Mills was removed and he complains of a lot of bladder pressure. They also indicate that he is extremely weak and is unable to stand on his own. His p.o. intake is poor. He has had no fever and did not complain of thirst or dry mouth. He did have some abdominal discomfort and distention and again has not urinated since the Mills was removed. He had no respiratory or upper respiratory symptoms and denied chest pain. The patient does have a hi story of urinary retention and has an upcoming appointment with Dr. Peres. Evidently, after his procedure he was unable to urinate and the Mills was left in his bladder but the Mills was removed on Monday at the time of discharge. The family called the on-call surgeon who told them to come to the emergency department. Vital signs at presentation were overall unremarkable other than some mild tachycardia with heart rates at 104 and hypertension. His heart rate has improved and now back to 70s to 80s but his blood pressure remains elevated. His CBC showed a normal white count and an anemia which is slightly worsened from when he was discharged from 10.8-8.8 and thrombocytopenia which appears to be close to his baseline but his platelet count does seem to fluctuate. His chemistry panel was overall unremarkable. His UA was not consistent with infection. Was admitted to the medical floor and placed on some gentle hydration. A Mills was replaced and physical and Occupational Therapy were consulted for further evaluation. Patient may need admission to a skilled facility prior to return to home. Patient repeats multiple times that he does have issues of membrane things at [facility] however he is alert and oriented x3. I did discuss with him about his mental health and he doubts that he has been depressed however he is tearful throughout my conversation with him. He has no acute complaints other than constipation at this time and some nausea. Objective Data Objective Data Vital Signs: Vital Signs Temp Pulse Resp BP Pulse Ox O2 Del Method 98.6 F 79 18 165/73 H 96 Room Air 12/31/22 03:37 12/31/22 03:37 12/31/22 03:37 12/31/22 03:37 12/31/22 03:37 12/31/22 03:37 Oxygen Delivery Method Room Air Weight: 78.1 kg Body Mass Index (BMI) 24.6 Intake & Output: Intake and Output for Last 24 Hours 12/29/22 12/30/22 12/31/22 23:59 23:59 23:59 Intake Total 1000 / 1100 200 / 200 Output Total 850 / 850 Balance 1000 / 700 -650 / -650 Lab / Micro Data 12/31/22 05:49 12/31/22 05:49 Labs: Laboratory Results - last 24 hr 12/30/22 21:24: WBC 4.6, RBC 2.91 L, Hgb 8.8 L, Hct 27.8 L, MCV 95.5 H, MCH 30.2, MCHC 31.7 L, RDW Std Deviation 52.8 H, RDW Coeff of [place] 15.0 H, Plt Count 103 L, MPV 9.9, Immature Gran % (Auto) 3.900 H, Neut % (Auto) 23.5 L, Lymph % (Auto) 67.0 H, [place] % (Auto) 4.7, Eos % (Auto) 0.0, Baso % (Auto) 0.9, Absolute Neuts (auto) 1.1 L, Absolute Lymphs (auto) 3.11, Nucleated RBC % 0, Sodium 134 L , Potassium 4.1, Chloride 100, Carbon Dioxide 29.0, Anion Gap 5, BUN 22 H, Creatinine 1.30, Estim Creat Clear Calc 42.90, Est GFR (MDRD) Af Amer 68, Est GFR (MDRD) Non-Af 56 L, BUN/Creatinine Ratio 16.9, Glucose 193 H, Calcium 8.3 L 12/30/22 21:59: Urine Color Yellow, Urine Clarity Clear, Urine pH 5.0, Ur Specific [place] 1.020, Urine Protein 100 H, Urine Glucose (UA) Normal, Urine Ketones 5 H, Urine Occult Blood 25 H, Urine Nitrite Negative, Urine Bilirubin Negative, Urine Urobilinogen Normal, Ur Leukocyte Esterase 25 H, Urine RBC 0-5 SEEN, Urine WBC 0-5 SEEN, Ur Squamous Epith Cells 0 SEEN, Urine Bacteria 1+, Urine Mucus 0 SEEN 12/31/22 00:32: POC Glucose 156 H 12/31/22 05:49: WBC 4.4, RBC 2.63 L, Hgb 8.0 L, Hct 25.0 L, MCV 95.1 H, MCH 30.4, MCHC 32.0, RDW Std Deviation 51.9 H, RDW Coeff of [place] 14.9 H, Plt Count 81 L, MPV 10.1, Immature Gran % (Auto) 1.800 H, Neut % (Auto) 19.9 L, Lymph % (Auto) 74.5 H, [place] % (Auto) 2.9, Eos % (Auto) 0.7, Baso % (Auto) 0.2, Absolute Neuts (auto) 0.9 L, Absolute Lymphs (auto) 3.30, Nucleated RBC % 0 Radiography Diagnostic Testing: Radiology Impression Chest X-Ray 12/30/22 21:35 IMPRESSION: No significant interval change. No acute cardiopulmonary disease process identified. Electronically Signed: Gt Grajeda MD at 22:08 EDT , Physical Exam Const alert, oriented x3, no apparent distress, average body habitus and well nourished Constitutional Narrative: Elderly, intermittently tearful, white male, sitting up in bed eating breakfast, appears comfortable and nontoxic HEENT head/scalp atraumatic and moist oral mucous membranes HEENT Narrative: Dentition is fair for age, Mallampati is 2, no thrush Head and Scalp: normocephalic Resp normal respiratory effort, no retractions, no use of accessory muscles and clear to auscultation bilaterally Auscultation: Negative for rales, rhonchi or wheezes Cardio regular rate, regular rhythm, S1 normal heart sound, S2 normal heart sound, no murmurs, no rub and no gallops GI normal to inspection, nondistended, normoactive bowel sounds, soft to palpation and non-tender Extremity no clubbing, cyanosis or edema Extremity Narrative: Bilateral inguinal area with ecchymosis but no signs of infection or drainage Neuro oriented x3, moves all extremities and no focal motor deficits Speech: speech normal Psych Psych Narrative: Affect is flat and mood is extremely depressed, patient is tearful intermittentl y throughout my conversation Mood & Affect: depressed Assessment & Plan Assessment/Plan (1) Acute on chronic anemia: (2) Failure to thrive in adult: (3) Urinary retention: (4) Acute constipation: (5) Thrombocytopenia: PLAN: Plan Generalized weakness/debility/failure to thrive -PT/OT consultation -May need placement prior to returning back home -Case management/social work consultation Urinary retention -Continue Mills catheter -Continue Proscar and hold home dutasteride -Start Flomax -Hold home oxybutynin is as this could make urinary retention worse -Will hold at discharge as well -Would leave Mills in until patient is able to follow-up as an outpatient with Dr. Peres Acute constipation -Start MiraLAX 17 g daily -Start senna/docusate twice daily -We will back off bowel regimen once patient started to have bowel movements -Likely related to pain medication, lack of mobility, and decreased p.o. intake/dehydration -KUB shows only mild constipation Poor p.o. intake -Add Ensure -Dietitian consultation -Encourage p.o. diet -This may improve if we can fix his constipation Acute on chronic anemia -Baseline hemoglobin looks to run between 10 and 11 -Hemoglobin on presentation was 8.8 -Recent surgery -Check guaiac stool -Iron studies -Okay to continue aspirin for now Hypothyroidism -Continue levothyroxine -We will check TSH with constipation DM-2 -On a patient at baseline -Continue cardiac/carb controlled diet -Monitor and add sliding scale if needed Recent laparoscopic bilateral inguinal herniorrhaphy with mesh -Postop day 4 -General surgery consultation pending CAD/hyperlipidemia/HTN -Continue home atorvastatin -Continue home Coreg -Continue home aspirin Dementia -Baseline orientation is unclear at this time -Continue to monitor -Likely complicates the above Suspected depression -We will start Remeron 15 mg nightly as this will help with depression and may help stimulate his appetite some History of tobacco abuse -Patient on room air and currently stable -Recommend ongoing cessation DVT prophylaxis -Subcu Lovenox daily CODE STATUS -DNR CCA with no intubation Charges/Coding Visit Charges Inpatient E&M: 22978 Subs Hosp L2
[2022-12-31 07:41] LABS: ALB/GLOB Ratio 0.9 RATIO (0.9-2.4); AST(SGOT) 19 U/L (15-37); Alanine Aminotransfer ALT/SGPT 12 U/L (16-61); Albumin, Serum 2.7 g/dL (3.2-5.0); Alkaline Phosphatase 51 U/L (45-117); Anion Gap 3 (5-15); BUN 21 mg/dL (7-18); BUN/Creat Ratio 21.6 RATIO (10-20); Calcium,Total 8.1 mg/dL (8.5-10.1); Chloride 105 mmol/L (98-107); Creatinine, Serum 0.97 mg/dL (0.70-1.30); EST Glomerular Filtration Rate 78 mL/min (>60); Est Glom Filt Rate - Afr Amer 94 mL/min (>60); Estimated Creatinine Clearance 57.49 ml/min; Globulin 3.1 g/dL (2.2-4.2); Glucose 139 mg/dL (74-106); Protein, Total 5.8 g/dL (6.4-8.2); Sodium Level 137 mmol/L (136-145)
[2022-12-31 07:56] LABS: Bedside Glucose 121 mg/dL (74-106)
[2022-12-31 08:00] VITALS: RESP 18
[2022-12-31 08:29] LABS: Ferritin 275 ng/mL (26-388); Iron 20 ug/dL (65-175); Iron Binding Capacity,Total 210 ug/dL (250-450); PERCENT IRON SATURATION 9.5 % (15.0-55.0); Thyroid Stim Hormone (TSH) 0.98 uIU/mL (0.358-3.74)
--- NOTE | 2022-12-31 08:33 | CON.PCM.SX_ITS ---
Assessment & Plan Assessment/Plan (1) S/P inguinal hernia repair: (2) Acute constipation: (3) Urinary retention: (4) Debility: PLAN: Plan This is an 87-year-old male who is 4 days status post laparoscopic bilateral herniorrhaphy with Dr. Gross who is readmitted for recurrent postoperative urinary retention, postoperative constipation, and general debility. Overall his exam is reassuring, but it is apparent that he remains too frail for his family to care for him at home?as stated by them directly. I suspect there has been strong interplay by patient's propensity for urinary retention and his lack of bowel activity creating a positive feedback loop between them. Fortunately he does not appear to have any evidence of postobstructive uropathy based on his creatinine this morning and his urine output appears clear. He states that he believes he had a bowel movement x1 since surgery. He has already been restarted on MiraLAX by hospitalist service. Additionally, I will obtain a KUB to assess his bowel gas pattern and fecal burden. Should the MiraLAX not be productive of a bowel movement within the next 24 hours, would recommend stimulation from below via either suppository or enema as well as additional prokinetic agents. Will continue to re-evaluate patient. Appreciate the opportunity to participate in Mr. Diego's care and agree with plans to obtain additional therapy as well as evaluation for possible therapy placement upon hospital discharge. HPI Consult Data Date of Consult: 12/31/22 HPI Narrative Reason for Consultation: Postoperative constipation HPI Narrative: ERMELINDA DIEGO, is a 87 M who presents to [facility] with his family after notifying our office yesterday of some urinary retention post Mills catheter removal yesterday morning. Mr. Diego is status post laparoscopic bila teral herniorrhaphy with Dr. Azevedo on 12/27/2022 and was discharged postoperatively 12/28/2022 with a Mills catheter in place for history of urinary retention.. At approximately 2000 yesterday I was telephoned by patient's family notify me that patient had not voided since 930 that morning. I ins tructed them to present to the ER for Mills catheter replacement. Patient's son also shared with me that he felt unable to care for his father given his father's progressive weakness and his personal limitations (being wheelchair- bound himself). Thus patient was admitted to the hospitalist service via the ER last evening. It also became apparent through the history given last evening that Mr. Diego has had some postoperative constipation and he reports maybe only 1 bowel movement since his operation on 12/27/2022 (admitting that his memory of these things is not good). He is also tearful as he recounts his independence status prior to the operation and his concerns about getting back to that independence now. He is tolerating breakfast at the time of our interview and denies any present nausea or abdominal discomfort. [facility] Medical History Aneurysm of infrarenal abdominal aorta Anxiety Arthritis Atherosclerotic heart disease of [place] coronary artery without angina pectoris Cancer Cardiology follow-up encounter Dementia Depression Essential hypertension Former smoker Gastric reflux Hard of hearing High cholesterol History of echocardiogram History of lateral wall myocardial infarction Left ventricular systolic dysfunction Lymphoma Memory deficit Pneumonia due to COVID-19 virus Pure hypercholesterolemia Stented coronary artery (~02/22/16) Thyroid disease Type 2 diabetes mellitus Wears glasses Wears hearing aid Wears partial dentures Home Medications atorvastatin 40 mg tablet [address] Gr manages cholesterol #90 tabs 05/24/18 [Rx Last Taken 12/30/22] carvedilol 3.125 mg tablet 3.125 mg PO BID bp 01/29/20 [History Last Taken 12/30/22] aspirin 81 mg tablet,delayed release 81 mg PO DAILY@0800 [facility] 03/09/20 [History Last Taken 12/30/22] dutasteride 0.5 mg capsule 0.5 mg PO DAILY 12/08/22 [History Last Taken Unknown] oxybutynin chloride 10 mg tablet,extended release 24 hr 10 mg PO DAILY 12/08/22 [History Last Taken 12/30/22] hydrocodone-acetaminophen 5-325mg 5mg-325mg 1 tab PO Q4H PRN PRN Pain 2 days #14 TABLETS 12/23/22 [Rx Last Taken Unknown] levothyroxine 88 mcg tablet 88 mcg PO DAILY 12/26/22 [History Last Taken 12/30/22] hydrocodone-acetaminophen 5-325mg 5mg-325mg 1 tab PO Q8H PRN pain 2 days #5 tabs 12/27/22 [Rx Last Taken 12/30/22] Allergy/AdvReac Type Severity Reaction Status Date / Time Penicillins Allergy Hives Verified 12/30/22 20:57 tree and shrub pollen Allergy Other Verified 12/30/22 20:57 lisinopril AdvReac Mild cough Verified 12/30/22 20:57 Family History Father , age [address] CAD (coronary artery disease) Myocardial infarction Sudden cardiac Mother Diabetes Surgical History History of appendectomy History of left heart catheterization Hx of bilateral cataract extraction Hx of cystoscopy Hx of tonsillectomy Presence of coronary angioplasty implant and graft (~02/22/16) Social History Smoking Status: Former smoker how long ago did patient quit smokin years ago alcohol intake: current alcohol intake frequency: a few times a week Alcohol type: beer substance use type: does not use caffeine: Yes Type: coffee Number of servings: 2 Physical Exam Const alert and oriented x3 Constitutional Narrative: Although patient is oriented some of his answers are delayed and coming but overall are appropriate. He does appear frail. General Appearance: frail Resp normal respiratory effort GI GI Narrative: Minimally distended, operative sites remain covered with operative dressings which are taken down and reveal unconcerning laparoscopic port sites with Steri- Strips still intact. Patient has no tenderness with palpation of either his abdomen or bilateral groins. His groins remain soft and without any obvious bulging. Lab / Micro Data 12/31/22 05:49 12/31/22 05:49 Labs: Laboratory Results - last 24 hr 12/30/22 21:24: WBC 4.6, RBC 2.91 L, Hgb 8.8 L, Hct 27.8 L, MCV 95.5 H, MCH 30.2, MCHC 31.7 L, RDW Std Deviation 52.8 H, RDW Coeff of [place] 15.0 H, Plt Count 103 L, MPV 9.9, Immature Gran % (Auto) 3.900 H, Neut % (Auto) 23.5 L, Lymph % (Auto) 67.0 H, [place] % (Auto) 4.7, Eos % (Auto) 0.0, Baso % (Auto) 0.9, Absolute Neuts (auto) 1.1 L, Absolute Lymphs (auto) 3.11, Nucleated RBC % 0, Sodium 134 L , Potassium 4.1, Chloride 100, Carbon Dioxide 29.0, Anion Gap 5, BUN 22 H, Creatinine 1.30, Estim Creat Clear Calc 42.90, Est GFR (MDRD) Af Amer 68, Est GFR (MDRD) Non-Af 56 L, BUN/Creatinine Ratio 16.9, Glucose 193 H, Calcium 8.3 L 12/30/22 21:59: Urine Color Yellow, Urine Clarity Clear, Urine pH 5.0, Ur Specific [place] 1.020, Urine Protein 100 H, Urine Glucose (UA) Normal, Urine Ketones 5 H, Urine Occult Blood 25 H, Urine Nitrite Negative, Urine Bilirubin Negative, Urine Urobilinogen Normal, Ur Leukocyte Esterase 25 H, Urine RBC 0-5 SEEN, Urine WBC 0-5 SEEN, Ur Squamous Epith Cells 0 SEEN, Urine Bacteria 1+, Urine Mucus 0 SEEN 12/31/22 00:32: POC Glucose 156 H 12/31/22 05:49: WBC 4.4, RBC 2.63 L, Hgb 8.0 L, Hct 25.0 L, MCV 95.1 H, MCH 30.4, MCHC 32.0, RDW Std Deviation 51.9 H, RDW Coeff of [place] 14.9 H, Plt Count 81 L, MPV 10.1, Immature Gran % (Auto) 1.800 H, Neut % (Auto) 19.9 L, Lymph % (Auto) 74.5 H, [place] % (Auto) 2.9, Eos % (Auto) 0.7, Baso % (Auto) 0.2, Absolute Neuts (auto) 0.9 L, Absolute Lymphs (auto) 3.30, Nucleated RBC % 0, Sodium 137, Potassium 4.0, Chloride 105, Carbon Dioxide 29.0, Anion Gap 3 L, BUN 21 H, Creatinine 0.97, Estim Creat Clear Calc 57.49, Est GFR (MDRD) Af Amer 94, Est GFR (MDRD) Non-Af 78, BUN/Creatinine Ratio 21.6 H, Glucose 139 H, Calcium 8.1 L, Iron 20 L, TIBC 210 L, Iron Saturation 9.5 L, Ferritin 275, Total Bilirubin 1.00, AST 19, ALT 12 L, Alkaline Phosphatase 51, Total Protein 5.8 L, Albumin 2.7 L, Globulin 3.1, Albumin/Globulin Ratio 0.9, TSH 0.98 12/31/22 06:43: POC Glucose 121 H Radiology Impression Chest X-Ray 12/30/22 21:35 IMPRESSION: No significant interval change. No acute cardiopulmonary disease process identified. Electronically Signed: Gt Grajeda MD at 22:08 EDT , Charges/Coding Visit Charges Inpatient E&M: 24731 Init Hosp L2
[2022-12-31 08:35] LABS: Differential Comment SCANNED; Platelet Estimate MOD DEC (ADEQ)
--- NOTE | 2022-12-31 09:28 | RAD_ITS ---
STUDY: X-RAY - ABDOMEN/PELVIS REASON FOR EXAM: Male, 87 years old. Constipation TECHNIQUE: Two AP supine views of the abdomen and pelvis. COMPARISON: CT 12/23/2022 FINDINGS: There is no bowel obstruction. There is air and stool to the level of the rectum. There is mild constipation. The visualized osseous structures are within normal limits. RAD/Abdomen Single View (Portable) IMPRESSION: No bowel obstruction. Mild constipation. Electronically Signed: Kevin Osborne MD at 10:41 EDT ,
[2022-12-31 09:37] VITALS: BP 150/74; PULSE 80; RESP 18; TEMP 36.8; O2SAT 96
[2022-12-31] MEDS: Aspirin E.C. 81 MG Tablet PO (10:44)
[2022-12-31] MEDS: Finasteride 5 MG Tablet PO (10:45)
[2022-12-31] MEDS: Enoxaparin 40 MG/0.4 ML Syringe SC (10:47)
[2022-12-31] MEDS: Polyethylene Glycol 3350 17 GM PACKET PO (10:47)
[2022-12-31] MEDS: Senna/Docusate Sodium 1 Tablet PO ×2 (10:48)
[2022-12-31 12:15] LABS: Bedside Glucose 171 mg/dL (74-106)
[2022-12-31] MEDS: Insulin Lispro 100 UNIT/ML INSULN.PEN SC ×2 (12:53→15:57)
[2022-12-31] MEDS: Ondansetron 4 MG/2 ML Vial IV (12:54)
[2022-12-31] MEDS: 0.9% Saline Lock 10 ML Syringe IV ×2 (12:54→21:32)
--- NOTE | 2022-12-31 14:28 | CASEMGMT ---
Social Work SW informed by RN ADAM patient's POA/ daughter Elena is agreeable to referral for SNF and their preference is TCU. Patient's daughter declined SNF list. VÍCTOR sent referral for TCU to [facility] via [facility]. Plan: TCU pending acceptance and precert Marli ADAMS, AMILCAR
--- NOTE | 2022-12-31 14:29 | CASEMGMT ---
TC to pt son Chapin to discuss dc planning. He states pt did not do well at home. States pt was weak, could not get out of chair. He states [facility] did make a visit but pt needed more care than they could provide. He is aware RN ADAM will discuss with DPOA and he feels pt needs SNF. FREDI MEDINA made tc to discuss DIAZ form with patient DPOA Elena Ness at [phone]. RN ADAM explained DIAZ form, patient dtr voiced understanding. Pt dtr verbalized understanding, witnessed by second staff member. Form filed in pt chart. Pt provided with a copy of signed DIAZ form. Patient dtr had no further questions or concerns at this time. Elena states that she would like pt to go to [facility]. She denied need for a list of other options. Updated SW.
[2022-12-31] MEDS: Sodium Ferric Gluconat/Sucrose 250 MG in 0.9% Normal Saline (250mL Bag) 250 ML 135 MG IV (14:45)
[2022-12-31] MEDS: Tamsulosin HCl 0.4 MG Capsule PO (15:56)
[2022-12-31 16:00] VITALS: BP 126/81; PULSE 82; RESP 18; TEMP 37.1; O2SAT 96
[2022-12-31 16:15] LABS: Bedside Glucose 186 mg/dL (74-106)
[2022-12-31 21:15] VITALS: BP 142/74; PULSE 76; RESP 18; TEMP 37.1; O2SAT 93
[2022-12-31] MEDS: Loratadine 10 MG Tablet PO (21:30)
[2022-12-31] MEDS: Fluticasone 0.05% 1 SPRAY NASAL.SRY 2 SPRAY NASAL (21:30)
[2022-12-31] MEDS: Famotidine 200 MG/20 ML MDV 20 MG in 0.9% Normal Saline (Pres. free 8 ML 300 MG IV (21:31)
[2022-12-31] MEDS: Mirtazapine 15 MG Tablet PO (21:31)
[2022-12-31] MEDS: Bisacodyl 10 MG Suppository RC (21:40)
[2022-12-31 21:57] VITALS: RESP 18
[2022-12-31 22:00] LABS: Bedside Glucose 140 mg/dL (74-106)
[2023-01-01 03:17] VITALS: BP 149/69; PULSE 78; RESP 16; TEMP 37.2; O2SAT 94
[2023-01-01 06:06] LABS: Absolute Lymphocyte Count 3.14 X10^3/uL (0.83-4.51); Absolute Neutrophil Count 0.8 X10^3/uL (2.0-7.7); Basophil# 0.01 X10^3/uL; Basophil% 0.2 % (0-1); Eosinophil# 0.02 X10^3/uL; Eosinophils% 0.5 % (0-5); Hematocrit 27.3 % (40-54); Hemoglobin 8.6 g/dL (13.0-16.5); Lymphocyte # 3.14 X10^3/ul (0.83-4.51); Lymphocyte % 73.5 % (19-41); Mean Corp Hgb Conc 31.5 g/dL (32-36); Mean Corpuscular Hgb 30.4 pg (27.0-32.0); Mean Corpuscular Volume 96.5 fL (80-94); Monocyte# 0.14 X10^3/uL; Monocyte% 3.3 % (0-10); NRBC Flagged by Analyzer 0 % (0-5); Neutrophil # 0.84 X10^3/uL (2.7-7.7); Neutrophil % 19.7 % (47-70); POSITIVE DIFFERENTIAL YES; POSITIVE MORPHOLOGY YES; Platelet Count 114 K/mm3 (150-450); RBC Distribution Width CV 14.7 % (11.6-14.6); RBC Distribution Width SD 51.8 fl (35.1-43.9); Red Blood Count 2.83 M/mm3 (4.6-6.2); White Blood Count 4.3 K/mm3 (4.4-11.0)
[2023-01-01 06:12] LABS: Differential Indicated SCAN CRITERIA MET
[2023-01-01] MEDS: Levothyroxine 88 MCG Tablet PO (06:36)
[2023-01-01 07:10] LABS: ALB/GLOB Ratio 0.8 RATIO (0.9-2.4); AST(SGOT) 26 U/L (15-37); Alanine Aminotransfer ALT/SGPT 17 U/L (16-61); Albumin, Serum 2.6 g/dL (3.2-5.0); Alkaline Phosphatase 53 U/L (45-117); Anion Gap 8 (5-15); BUN 23 mg/dL (7-18); BUN/Creat Ratio 25.7 RATIO (10-20); Chloride 105 mmol/L (98-107); Creatinine, Serum 0.89 mg/dL (0.70-1.30); EST Glomerular Filtration Rate 86 mL/min (>60); Est Glom Filt Rate - Afr Amer 104 mL/min (>60); Estimated Creatinine Clearance 62.66 ml/min; Globulin 3.3 g/dL (2.2-4.2); Glucose 136 mg/dL (74-106); Magnesium 2.5 mg/dL (1.6-2.6); Phosphorus 2.7 mg/dL (2.5-4.9); Protein, Total 5.9 g/dL (6.4-8.2); Sodium Level 137 mmol/L (136-145); Thyroid Stim Hormone (TSH) 1.01 uIU/mL (0.358-3.74)
[2023-01-01] MEDS: Bisacodyl 10 MG Suppository RC (07:21)
[2023-01-01] MEDS: Carvedilol 3.125 MG TABLET PO ×2 (08:41→16:36)
[2023-01-01] MEDS: Aspirin E.C. 81 MG Tablet PO (08:42)
[2023-01-01 08:47] VITALS: BP 167/78; PULSE 84; RESP 16; TEMP 36.9; O2SAT 97
--- NOTE | 2023-01-01 08:48 | PCM.PN.SRG ---
Subjective Subjective Patient is found out of bed just getting up from a bedside commode. Nursing states that they administered a suppository to him with minimal output of mucus and otherwise a negative result. Patient describes ongoing problems with reflux and belching. Nursing confirms that oral intake has been minimal and limited to liquids. They deny any awareness of any emesis. Objective Data Objective Data Vital Signs: Vital Signs Temp Pulse Resp BP Pulse Ox O2 Del Method 98.9 F 78 16 149/69 H 94 Room Air 01/01/23 03:17 01/01/23 03:17 01/01/23 03:17 01/01/23 03:17 01/01/23 03:17 01/01/23 03:17 Oxygen Delivery Method Room Air Weight: 172 lb 2.896 oz Body Mass Index (BMI) 24.6 Intake & Output: Intake and Output for Last 24 Hours 12/30/22 12/31/22 01/01/23 23:59 23:59 23:59 Intake Total 1000 / 1100 2730 / 2730 300 / 300 Output Total 1850 / 1850 450 / 450 Balance 1000 / 700 880 / 880 -150 / -150 Lab / Micro Data 01/01/23 05:47 01/01/23 05:47 Labs: Laboratory Results - last 24 hr 12/31/22 11:44: POC Glucose 171 H 12/31/22 15:56: POC Glucose 186 H 12/31/22 21:19: POC Glucose 140 H 01/01/23 05:47: WBC 4.3 L, RBC 2.83 L, Hgb 8.6 L, Hct 27.3 L, MCV 96.5 H, MCH 30.4, MCHC 31.5 L, RDW Std Deviation 51.8 H, RDW Coeff of [place] 14.7 H, Plt Count 114 L, MPV 10.0, Immature Gran % (Auto) 2.800 H, Neut % (Auto) 19.7 L, Lymph % (Auto) 73.5 H, [place] % (Auto) 3.3, Eos % (Auto) 0.5, Baso % (Auto) 0.2, Absolute Neuts (auto) 0.8 L, Absolute Lymphs (auto) 3.14, Nucleated RBC % 0, Sodium 137, Potassium 4.0, Chloride 105, Carbon Dioxide 24.0, Anion Gap 8, BUN 23 H, Creatinine 0.89, Estim Creat Clear Calc 62.66, Est GFR (MDRD) Af Amer 104, Est GFR (MDRD) Non-Af 86, BUN/Creatinine Ratio 25.7 H, Glucose 136 H, Calcium 8.0 L, Phosphorus 2.7, Magnesium 2.5, Total Bilirubin 1.00, AST 26, ALT 17, Alkaline Phosphatase 53, Total Protein 5.9 L, Albumin 2.6 L, Globulin 3.3, Albumin/Globulin Ratio 0.8 L, TSH 1.01 Radiography Diagnostic Testing: Radiology Impression KUB X-Ray 12/31/22 09:28 IMPRESSION: No bowel obstruction. Mild constipation. Electronically Signed: Kevin Osborne MD at 10:41 EDT , Physical Exam Const Constitutional Narrative: Oriented but less responsive to history this morning. Appears more confused and depressed Resp normal respiratory effort GI GI Narrative: Increased abdominal distention, soft, minimally tender to palpation Assessment & Plan Assessment/Plan (1) S/P inguinal hernia repair: (2) Acute constipation: (3) Urinary retention: (4) Debility: PLAN: Plan This is an 87-year-old male who is 5 days status post laparoscopic bilateral herniorrhaphy with Dr. Gross who is readmitted for recurrent postoperative urinary retention, postoperative constipation, and general debility. Unfortunately since our initial encounter, Mr. Gramajo has developed some signs of p.o. intolerance and gastrointestinal obstruction with complaints of new onset reflux, belching, and has had very little positive effect with multiple rounds of laxatives and suppositories. His exam exhibited slightly more distention this morning so I repeated his KUB which is concerning for developing small bowel obstruction with primary distention of the small bowel and minimal gas within the colon. There does not appear to be significant gastric distention at present. Still, I have made patient n.p.o. with IV fluid support. If patient begins with recurrent emesis, would recommend placement of a nasogastric tube. Charges/Coding Visit Charges Inpatient E&M: 74751 Subs Hosp L2
[2023-01-01] MEDS: Fluticasone 0.05% 1 SPRAY NASAL.SRY 2 SPRAY NASAL (08:52)
[2023-01-01] MEDS: Enoxaparin 40 MG/0.4 ML Syringe SC (08:55)
[2023-01-01] MEDS: Finasteride 5 MG Tablet PO (08:56)
[2023-01-01] MEDS: Senna/Docusate Sodium 1 Tablet PO ×2 (08:56→22:29)
[2023-01-01] MEDS: Polyethylene Glycol 3350 17 GM PACKET PO (08:56)
[2023-01-01 09:00] VITALS: RESP 18
[2023-01-01] MEDS: Loratadine 10 MG Tablet PO (09:15)
--- NOTE | 2023-01-01 10:26 | RAD_ITS ---
HISTORY: Decrease p.o. reynaldo-reassess bowel gas pattern. TECHNIQUE: XR Abdomen 1 View. COMPARISON: Prior day. FINDINGS: BOWEL GAS PATTERN: Multiple dilated small bowel loops. FREE AIR: Not assessed on supine view. CALCIFICATIONS: Multiple pelvic phleboliths observed. BONES: Degenerative change. SOFT TISSUES: Unremarkable. RAD/Abdomen Single View (Portable) IMPRESSION: Multiple dilated small bowel loops, suspicious for small bowel obstruction. Electronically Signed: Kathy Goncalves MD at 11:23 EDT ,
[2023-01-01 10:58] LABS: Differential Comment SCANNED; Reactive Lymphocyte 1+
[2023-01-01 11:36] LABS: Bedside Glucose 119 mg/dL (74-106)
[2023-01-01 12:06] LABS: Bedside Glucose 172 mg/dL (74-106)
--- NOTE | 2023-01-01 12:16 | PN.HOSP_ITS ---
Reason for Visit Reason for Visit: Constipation/inability urinate/generalized weakness Subjective Subjective Patient affect remains very flat. P.o. intake has been poor as has fluid intake. No bowel movement as of yet. Patient reported flatus. Per discussion with nursing his motivation has been poor. Objective Data Objective Data Vital Signs: Vital Signs Temp Pulse Resp BP Pulse Ox O2 Del Method 98.4 F 84 18 167/78 H 97 Room Air 01/01/23 08:47 01/01/23 08:47 01/01/23 09:00 01/01/23 08:47 01/01/23 08:47 01/01/23 09:00 Oxygen Delivery Method Room Air Weight: 78.1 kg Body Mass Index (BMI) 24.6 Intake & Output: Intake and Output for Last 24 Hours 12/30/22 12/31/22 01/01/23 23:59 23:59 23:59 Intake Total 1000 / 1100 2730 / 2730 300 / 300 Output Total 1850 / 1850 450 / 450 Balance 1000 / 700 880 / 880 -150 / -150 Lab / Micro Data 01/01/23 05:47 01/01/23 05:47 Labs: Laboratory Results - last 24 hr 12/31/22 15:56: POC Glucose 186 H 12/31/22 21:19: POC Glucose 140 H 01/01/23 05:47: WBC 4.3 L, RBC 2.83 L, Hgb 8.6 L, Hct 27.3 L, MCV 96.5 H, MCH 30.4, MCHC 31.5 L, RDW Std Deviation 51.8 H, RDW Coeff of [place]ont 14.7 H, Plt Count 114 L, MPV 10.0, Immature Gran % (Auto) 2.800 H, Neut % (Auto) 19.7 L, Lymph % (Auto) 73.5 H, [place] % (Auto) 3.3, Eos % (Auto) 0.5, Baso % (Auto) 0.2, Absolute Neuts (auto) 0.8 L, Absolute Lymphs (auto) 3.14, Nucleated RBC % 0, Differential Comment SCANNED, Reactive Lymphocytes 1+, Sodium 137, Potassium 4.0, Chloride 105, Carbon Dioxide 24.0, Anion Gap 8, BUN 23 H, Creatinine 0.89, Estim Creat Clear Calc 62.66, Est GFR (MDRD) Af Amer 104, Est GFR (MDRD) Non-Af 86, BUN/Creatinine Ratio 25.7 H, Glucose 136 H, Calcium 8.0 L, Phosphorus 2.7, Magnesium 2.5, Total Bilirubin 1.00, AST 26, ALT 17, Alkaline Phosphatase 53, Total Protein 5.9 L, Albumin 2.6 L, Globulin 3.3, Albumin/Globulin Ratio 0.8 L, TSH 1.01 01/01/23 06:35: POC Glucose 119 H 01/01/23 11:49: POC Glucose 172 H Micro: Microbiology 01/01/23 10:11 Stool Stool Occult Blood (CONSTANTIN) - Final Occult Blood Positive Radiography Diagnostic Testing: Radiology Impression KUB X-Ray 01/01/23 10:26 IMPRESSION: Multiple dilated small bowel loops, suspicious for small bowel obstruction. Electronically Signed: Kathy Goncalves MD at 11:23 EDT Reading Location ID and State: [facility] / [place] Tel , Service support , Physical Exam Const alert, oriented x3, no apparent distress, average body habitus and well nourished Constitutional Narrative: Elderly, white male, lying in bed, appears comfortable and nontoxic HEENT head/scalp atraumatic and moist oral mucous membranes HEENT Narrative: Mallampati 2 no thrush Head and Scalp: normocephalic Resp normal respiratory effort, no retractions, no use of accessory muscles and clear to auscultation bilaterally Auscultation: Negative for rales, rhonchi or wheezes Cardio regular rate, regular rhythm, S1 normal heart sound, S2 normal heart sound, no murmurs, no rub and no gallops GI soft to palpation and non-tender GI Narrative: Frequent but tinkling bowel sounds, mild distention Extremity no clubbing, cyanosis or edema Extremity Narrative: Bilateral inguinal area with ecchymosis but no signs of infection or drainage Neuro oriented x3, moves all extremities and no focal motor deficits Speech: speech normal Psych Psych Narrative: Affect is extremely flat and mood appears to be depressed Mood & Affect: depressed Assessment & Plan Assessment/Plan (1) Acute on chronic anemia: (2) Failure to thrive in adult: (3) Urinary retention: (4) Acute constipation: (5) Thrombocytopenia: PLAN: Plan Ileus versus small bowel obstruction -General surgery noted at the time of their evaluation that the patient was complaining of some reflux and belching with no stool output despite suppositories and oral intake had been poor -KUB of the abdomen pelvis was performed and shows multiple dilated small bowel loops suspicious of small bowel obstruction versus ileus--> this is new in comparison from KUB yesterday -N.p.o. -May need NG if emesis -Start IV fluids -General surgery following-appreciate input Generalized weakness/debility/failure to thrive -PT/OT following -We will likely need placement -Case management/social work consultation pending Urinary retention -Continue Mills catheter -Continue Proscar and hold home dutasteride -Continue Flomax -Hold home oxybutynin is as this could make urinary retention worse -Will hold at discharge as well -Would leave Mills in until patient is able to follow-up as an outpatient with Dr. Larisa Muñoz p.o. intake -N.p.o. with development of small bowel obstruction versus ileus -Dietitian consultation Acute on chronic anemia -Baseline hemoglobin looks to run between 10 and 11 -Hemoglobin is stable at 8.6 today but down from postoperatively at which time it was 1.0-11 -Recent surgery -Stool guaiac is pending -Iron studies are consistent more with chronic disease -We will continue aspirin Hypothyroidism -Continue levothyroxine -TSH is within normal limits DM-2 -On a patient at baseline -Continue cardiac/carb controlled diet -Monitor and add sliding scale if needed Recent laparoscopic bilateral inguinal herniorrhaphy with mesh -Postop day 5 -General surgery is following CAD/hyperlipidemia/HTN -Continue home atorvastatin -Continue home Coreg -Continue home aspirin Dementia -Baseline orientation is unclear at this time -Continue to monitor -Likely complicates the above Suspected depression -Remeron 15 mg initiated however will need to be on hold for bowel obstruction versus ileus -Restart when able History of tobacco abuse -Patient on room air and currently stable -Recommend ongoing cessation DVT prophylaxis -Subcu Lovenox daily CODE STATUS -DNR CCA with no intubation Charges/Coding Visit Charges Inpatient E&M: 96595 Subs Hosp L2
[2023-01-01] MEDS: Lactated Ringers 1,000 ML 125 ML IV ×2 (12:21→19:59)
[2023-01-01 16:00] VITALS: BP 140/58; PULSE 74; RESP 18; TEMP 37.2; O2SAT 98
[2023-01-01] MEDS: Tamsulosin HCl 0.4 MG Capsule PO (16:35)
[2023-01-01 18:36] LABS: Bedside Glucose 153 mg/dL (74-106)
[2023-01-01 22:24] VITALS: BP 114/40; PULSE 74; RESP 20; TEMP 37.8; O2SAT 95
[2023-01-01] MEDS: Mirtazapine 15 MG Tablet PO (22:29)
[2023-01-01] MEDS: Atorvastatin Calcium 40 MG Tablet PO (22:29)
[2023-01-02] VITALS (8 sets, daily range): BP systolic 120–158; BP diastolic 64–71; PULSE 72–83; RESP 16–20; TEMP 37.1–38.3; O2SAT 90–99
[2023-01-02 00:09] LABS: Bedside Glucose 123 mg/dL (74-106)
[2023-01-02] MEDS: Lactated Ringers 1,000 ML 125 ML IV ×2 (02:50→11:56)
[2023-01-02] MEDS: 0.9% Saline Lock 10 ML Syringe IV ×2 (04:50→21:51)
[2023-01-02] MEDS: Levothyroxine 88 MCG Tablet PO (04:51)
--- NOTE | 2023-01-02 06:30 | RAD_ITS ---
EXAM: XR ABDOMEN, 2 VIEWS CLINICAL INDICATION: post op ileus TECHNIQUE: 4 views. COMPARISON: January 01, 2023. FINDINGS: LOWER THORAX: Mildly increased linear markings in the lung bases. No focal consolidation or effusion. Normal heart size. INTRAPERITONEAL SPACE: No free air. GASTROINTESTINAL TRACT: Prominent gas filled small bowel loops in the upper to mid abdomen, mildly improved compared to yesterday. There were loops of up to 4.6 cm left abdomen, now estimated to be 3.8 cm. Similar distribution. Suspicion of postoperative change of left ostomy. Only slight gas over the rectum. ORGANS: Unremarkable as visualized. No organomegaly. No abnormal calcifications. BONES/JOINTS: Mild degenerative changes of the hip joints, mild acetabular sclerosis, particularly well-maintained spaces. Multilevel mild thoracic spine spondylosis. SOFT TISSUES: No acute pathology. RAD/Abd Inc Decub and/or Erect IMPRESSION: Mildly improved but persistent gaseous distention of small bowel loops and paucity of colon gas. Likely improved ileus, cannot exclude obstruction. Electronically Signed: Sandra Harrison MD at 7:09 EDT ,
--- NOTE | 2023-01-02 06:32 | PCM.PN.SRG ---
Subjective Subjective Patient resting comfortably. Denies nausea. States that he has had flatus and the small amount of stool. Claims 6 out of 10 pain bilateral groin operative areas. Patient is stating he cannot reach and grasp things with his hands. Objective Data Objective Data Vital Signs: Vital Signs Temp Pulse Resp BP Pulse Ox O2 Del Method 99.0 F 74 20 H 133/64 H 95 Room Air 01/02/23 04:55 01/02/23 04:55 01/02/23 04:55 01/02/23 04:55 01/02/23 04:55 01/02/23 04:55 Oxygen Delivery Method Room Air Weight: 172 lb 2.896 oz Body Mass Index (BMI) 24.6 Intake & Output: Intake and Output for Last 24 Hours 12/31/22 01/01/23 01/02/23 23:59 23:59 23:59 Intake Total 2730 / 2730 1534.17 / 1559.17 881.25 / 881.25 Output Total 1850 / 1850 1250 / 1475 625 / 625 Balance 880 / 880 284.17 / 84.17 256.25 / 256.25 Lab / Micro Data 01/01/23 05:47 01/01/23 05:47 Labs: Laboratory Results - last 24 hr 01/01/23 05:47: Differential Comment SCANNED, Reactive Lymphocytes 1+, Sodium 137, Potassium 4.0, Chloride 105, Carbon Dioxide 24.0, Anion Gap 8, BUN 23 H, Creatinine 0.89, Estim Creat Clear Calc 62.66, Est GFR (MDRD) Af Amer 104, Est GFR (MDRD) Non-Af 86, BUN/Creatinine Ratio 25.7 H, Glucose 136 H, Calcium 8.0 L, Phosphorus 2.7, Magnesium 2.5, Total Bilirubin 1.00, AST 26, ALT 17, Alkaline Phosphatase 53, Total Protein 5.9 L, Albumin 2.6 L, Globulin 3.3, Albumin/Globulin Ratio 0.8 L, TSH 1.01 01/01/23 06:35: POC Glucose 119 H 01/01/23 11:49: POC Glucose 172 H 01/01/23 18:18: POC Glucose 153 H 01/01/23 22:34: POC Glucose 123 H Micro: Microbiology 01/01/23 10:11 Stool Stool Occult Blood (CONSTANTIN) - Final Occult Blood Positive Radiography Diagnostic Testing: Radiology Impression KUB X-Ray 01/01/23 10:26 IMPRESSION: Multiple dilated small bowel loops, suspicious for small bowel obstruction. Electronically Signed: Kathy Goncalves MD at 11:23 EDT , Physical Exam Const Constitutional Narrative: Patient is alert resting comfortably appears to be in no distress Resp normal respiratory effort and clear to auscultation bilaterally GI GI Narrative: Abdomen is soft, slightly distended, bowel sounds very infrequent, laparoscopic incisions very clean dry healing well, no abdominal tenderness rebound guarding, scrotal ecchymosis noted consistent with the degree of surgical intervention. Extremity Extremity Narrative: Swelling noted bilateral lower extremities Assessment & Plan Assessment/Plan (1) Debility: (2) Acute on chronic anemia: (3) Failure to thrive in adult: (4) Postoperative ileus: PLAN: Findings would appear to be most consistent with postoperative ileus. Elderly patient with chronic significant medical comorbidities. 2 previous trips to the emergency room because of suspected transient incarceration of bowel within a left inguinal hernia. 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 Preoperative problems with hematuria and suspected urinary tract infection and urinary outlet obstruction. I will repeat abdominal x-ray this morning but clinically his exam is quite benign and bowel sounds are quite infrequent consistent with ileus. I will moderate his IV fluid as he is 87 and demonstrating evidence of third spaced fluids. The patient states that he is hungry. We will initiate clear liquids pending his ongoing progress. Mobilization vigorously recommended Cale Gross M.D., F.A.C.S.
[2023-01-02 06:37] LABS: Bedside Glucose 104 mg/dL (74-106)
[2023-01-02 06:50] LABS: Absolute Lymphocyte Count 2.66 X10^3/uL (0.83-4.51); Absolute Neutrophil Count 0.5 X10^3/uL (2.0-7.7); Basophil# 0.01 X10^3/uL; Basophil% 0.3 % (0-1); Eosinophil# 0.03 X10^3/uL; Eosinophils% 0.9 % (0-5); Hematocrit 22.1 % (40-54); Hemoglobin 7.2 g/dL (13.0-16.5); Lymphocyte # 2.66 X10^3/ul (0.83-4.51); Lymphocyte % 77.1 % (19-41); Mean Corp Hgb Conc 32.6 g/dL (32-36); Mean Corpuscular Volume 95.3 fL (80-94); Mean Platelet Vol. 9.5 fl (6.2-12.0); Monocyte% 2.9 % (0-10); NRBC Flagged by Analyzer 0 % (0-5); Neutrophil # 0.53 X10^3/uL (2.7-7.7); Neutrophil % 15.3 % (47-70); POSITIVE DIFFERENTIAL YES; POSITIVE MORPHOLOGY YES; Platelet Count 114 K/mm3 (150-450); RBC Distribution Width CV 14.8 % (11.6-14.6); RBC Distribution Width SD 51.6 fl (35.1-43.9); Red Blood Count 2.32 M/mm3 (4.6-6.2); White Blood Count 3.5 K/mm3 (4.4-11.0)
[2023-01-02 07:01] LABS: Differential Indicated SCAN CRITERIA MET
[2023-01-02 07:20] LABS: Anion Gap 5 (5-15); BUN 22 mg/dL (7-18); Calcium,Total 7.8 mg/dL (8.5-10.1); Chloride 107 mmol/L (98-107); Creatinine, Serum 0.84 mg/dL (0.70-1.30); EST Glomerular Filtration Rate 92 mL/min (>60); Est Glom Filt Rate - Afr Amer 111 mL/min (>60); Estimated Creatinine Clearance 66.39 ml/min; Glucose 107 mg/dL (74-106); Potassium 3.8 mmol/L (3.5-5.1); Sodium Level 139 mmol/L (136-145)
[2023-01-02 07:21] LABS: Anisocytosis 1+; Hypochromasia 1+; Platelet Estimate SLT DEC (ADEQ)
--- NOTE | 2023-01-02 09:22 | CM.UR ---
Social Work SW spoke w/Ann-Marie in TCU, she will let SW know if they can take pt and will start precert if they can indeed take him, she is waiting to hear back from pharmacy. ERICA Sanchez
[2023-01-02] MEDS: Aspirin E.C. 81 MG Tablet PO (10:17)
[2023-01-02] MEDS: Enoxaparin 40 MG/0.4 ML Syringe SC (10:17)
[2023-01-02] MEDS: Loratadine 10 MG Tablet PO (10:18)
[2023-01-02] MEDS: Carvedilol 3.125 MG TABLET PO ×2 (10:18→17:00)
[2023-01-02] MEDS: Senna/Docusate Sodium 1 Tablet PO ×2 (10:20→21:50)
[2023-01-02] MEDS: Finasteride 5 MG Tablet PO (10:20)
[2023-01-02] MEDS: Polyethylene Glycol 3350 17 GM PACKET PO (10:20)
--- NOTE | 2023-01-02 10:22 | CASEMGMT ---
Social Work Sw attempted to locate patient's Power of Compound Specialist paperwork in medical record, documents not listed. Sw presented to bedside and informed patient that his advanced directive paperwork is not on file. Sw encouraged patient to bring documents in to be scanned into his medical record. Patient expressed understanding. Sw also informed patient that we are still waiting for patient to get accepted into TCU. Patient expressed understanding. Anselmo Escobar, MACHINE OPERATOR FARMWORKER, VICE PRESIDENT [employer]
--- NOTE | 2023-01-02 11:31 | CASEMGMT ---
Social Work TCU can take pt and will start precert. SW did let Ann-Marie in TCU know that the physician stated pt will need another couple of days. She will let pt's insurance know. ERICA Sanchez
[2023-01-02 12:17] LABS: Bedside Glucose 127 mg/dL (74-106)
--- NOTE | 2023-01-02 14:56 | PCM.PN.HOSP ---
Reason for Visit Reason for Visit: Diagnoses Anemia, unspecified (12/30/22) Thrombocytopenia, unspecified (12/30/22) Type 2 diabetes mellitus with hyperglycemia (12/30/22) Ileus, unspecified (12/30/22) Constipation, unspecified (12/30/22) Other postprocedural complications and disorders of digestive system (12/30/22) Retention of urine, unspecified (12/30/22) Other malaise (12/30/22) Adult failure to thrive (12/30/22) Personal history of other diseases of the digestive system (12/30/22) Other specified postprocedural states (12/30/22) Subjective Subjective Patient seen at bedside this morning. Sitting comfortably in bedside chair, conversing normally, no acute distress. Has had a small amount of water this morning since surgery approved him for a clear liquid diet. Was in the process of ordering more clear liquids on my interview. Reported mild nausea with abdominal distention but no abdominal pain. Denies any fevers or chills. No other acute concerns this morning. Objective Data Objective Data Vital Signs: Vital Signs Temp Pulse Resp BP Pulse Ox O2 Del Method 99.1 F 75 16 130/68 H 99 Room Air 01/02/23 14:20 01/02/23 14:20 01/02/23 14:20 01/02/23 14:20 01/02/23 14:20 01/02/23 14:20 Oxygen Delivery Method Room Air Weight: 78.1 kg Body Mass Index (BMI) 24.6 Intake & Output: Intake and Output for Last 24 Hours 12/31/22 01/01/23 01/02/23 23:59 23:59 23:59 Intake Total 2730 / 2730 1534.17 / 1559.17 1881.25 / 1881.25 Output Total 1850 / 1850 1250 / 1475 775 / 775 Balance 880 / 880 284.17 / 84.17 1106.25 / 1106.25 Lab / Micro Data 01/02/23 06:00 01/02/23 06:00 Labs: Laboratory Results - last 24 hr 01/01/23 18:18: POC Glucose 153 H 01/01/23 22:34: POC Glucose 123 H 01/02/23 05:52: POC Glucose 104 01/02/23 06:00: WBC 3.5 L, RBC 2.32 L, Hgb 7.2 L, Hct 22.1 L, MCV 95.3 H, MCH 31.0, MCHC 32.6, RDW Std Deviation 51.6 H, RDW Coeff of [place]ont 14.8 H, Plt Count 114 L, MPV 9.5, Immature Gran % (Auto) 3.500 H, Neut % (Auto) 15.3 L, Lymph % (Auto) 77.1 H, [place] % (Auto) 2.9, Eos % (Auto) 0.9, Baso % (Auto) 0.3, Absolute Neuts (auto) 0.5 L, Absolute Lymphs (auto) 2.66, Nucleated RBC % 0, Platelet Estimate SLT DEC, Hypochromasia 1+, Anisocytosis 1+, Sodium 139, Potassium 3.8, Chloride 107, Carbon Dioxide 27.0, Anion Gap 5, BUN 22 H, Creatinine 0.84, Estim Creat Clear Calc 66.39, Est GFR (MDRD) Af Amer 111, Est GFR (MDRD) Non-Af 92, BUN/Creatinine Ratio 26.0 H, Glucose 107 H, Calcium 7.8 L 01/02/23 11:55: POC Glucose 127 H Micro: Microbiology 01/01/23 10:11 Stool Stool Occult Blood (CONSTANTIN) - Final Occult Blood Positive Radiography Diagnostic Testing: Radiology Impression Abdomen X-Ray 01/02/23 06:30 IMPRESSION: Mildly improved but persistent gaseous distention of small bowel loops and paucity of colon gas. Likely improved ileus, cannot exclude obstruction. Electronically Signed: Sandra Harrison MD at 7:09 EDT , Physical Exam Const alert, oriented x3, no apparent distress and average body habitus Constitutional Narrative: Pleasant elderly male, sitting comfortably in bedside chair, conversing normally, no acute distress. General Appearance: cooperative and comfortable HEENT normocephalic, head/scalp atraumatic, hearing grossly normal bilaterally, nasal mucous membranes and turbinates normal and moist oral mucous membranes Eyes PERRL, EOMs intact bilaterally and conjunctivae normal Neck full ROM, no lymphadenopathy and supple Lymph Lymphatic: no lymphadenopathy noted Chest inspection of chest normal Resp normal respiratory effort, normal air movement, no use of accessory muscles and clear to auscultation bilaterally Cardio regular rate, regular rhythm, no murmurs and peripheral pulses 2+ throughout GI GI Narrative: Moderately distended but soft and nontender to palpation. Back/Spine normal ROM Extremity normal to inspection, full ROM and no pedal edema Skin no rashes or lesions noted Psych mental status grossly normal Assessment & Plan Assessment/Plan (1) Postoperative ileus: PLAN: Plan Patient is an 87-year-old male with history of debility, urinary retention, anemia, hypothyroidism, type 2 diabetes, CAD, hypertension, cognitive impairment and recent laparoscopic bilateral inguinal hernia repair (12/27/2022) who presented to [facility] ED on 12/30/2022 with worsening weakness and constipation. 1. Postoperative ileus Presumed secondary to recent laparoscopic bilateral inguinal hernia repair on 12/27. KUB on admit showed mild constipation with no concern for ileus or SBO. Repeat KUB on 01/01 showed multiple dilated small bowel loops suspicious for SBO. KUB on 01/02 showed mildly improved but persistent gaseous distention of small bowel loops. ? General surgery following. Suspect postoperative ileus with low concern for small bowel obstruction. Patient does report passing flatus and small amount of stool. Advanced to clear liquid diet on 01/02. Okay for p.o. medications. 2. Generalized weakness, debility, failure to thrive ? PT/OT/case management following. Approved for TCU on discharge, pre-CERT pending as noted below. 3. Urinary retention ? Per history, follows with Dr. Peres. Continue Mills catheter. Continue home Proscar and Flomax. Holding home dutasteride and oxybutynin. We will plan to continue Mills catheter on discharge, with close outpatient follow-up with urology. 4. Poor p.o. intake ? Dietitian consulted. Advanced to clear liquid diet as above. 5. Acute on chronic anemia Presumed secondary to recent surgery. Baseline hemoglobin between 10 and 11. Hemoglobin 8.6 on admit, has now slowly down trended to 7.2 on 01/02. Iron studies consistent with anemia of chronic disease. ? Monitor CBC daily. Likely plan to transfuse if hemoglobin less than 7. Okay to continue home aspirin. Chronic medical conditions: ? Hypothyroidism: TSH normal. Continue home levothyroxine. ? Type 2 diabetes: Diet controlled. Cardiac/carb controlled diet while inpatient. Monitor, add sliding scale as needed. ? CAD, hypertension: Continue home atorvastatin, Coreg, aspirin. ? Cognitive impairment: Unclear baseline. Alert and oriented at this time. Likely complicates above. ? Suspected depression: Remeron 15 mg nightly initiated, monitor. DVT prophylaxis: Lovenox CODE STATUS: DNR CCA, DO NOT INTUBATE Expected disposition: Accepted to TCU, pre-CERT pending. Likely medically ready in 2 to 3 days. Total clinical time spent by myself addressing the patient's medical issues, reviewing all the data, and collaborating with patient's care team: 35 minutes. Charges/Coding Visit Charges Inpatient E&M: 68674 Subs Hosp L2
[2023-01-02] MEDS: Tamsulosin HCl 0.4 MG Capsule PO (17:00)
[2023-01-02 17:29] LABS: Bedside Glucose 106 mg/dL (74-106)
[2023-01-02] MEDS: Fluticasone 0.05% 1 SPRAY NASAL.SRY 2 SPRAY NASAL (21:50)
[2023-01-02] MEDS: Mirtazapine 15 MG Tablet PO (21:50)
[2023-01-02] MEDS: Atorvastatin Calcium 40 MG Tablet PO (21:50)
--- NOTE | 2023-01-02 22:13 | RAD_ITS ---
INDICATION: fever EXAMINATION/TECHNIQUE: X-RAY - XR Chest 1 View COMPARISON: 12/30/2022. FINDINGS: LINES/DEVICES: None. LUNGS: Right infrahilar density. No evidence of a pleural effusion or a pneumothorax. Mild scarring versus atelectasis in the left lung base. MEDIASTINUM AND CARDIOVASCULAR STRUCTURES: Cardiac silhouette is normal in size and contour. Mediastinum is unremarkable. BONES AND SOFT TISSUES: No acute abnormality. RAD/Chest 1 View (Portable) IMPRESSION: Possible right infrahilar infiltrate. Electronically Signed: Deandre Stoddard DO at 23:08 EDT ,
[2023-01-02] MEDS: Acetaminophen 325 MG Tablet 650 MG PO (22:35)
[2023-01-02] MEDS: Lactated Ringers 1,000 ML 30 ML IV (22:40)
[2023-01-02 23:21] LABS: Mucous, Urine 0 SEEN /hpf (<or=2+); Squamous Epithelial Cells - UA 0 SEEN /hpf (0-5); White Blood Cells 0 SEEN /hpf (0-5)
[2023-01-02 23:23] LABS: Color, Urine Yellow (Yellow); Glucose, Dipstick Normal (Normal); Ketone-Dipstick Negative (Negative); Leukocyte Esterase-Dipstick Negative /ul (Negative); Nitrite-Dipstick Negative (Negative); Occult Blood-Urine Negative /ul (Negative); Protein-Dipstick 15 mg/dl (Negative); Urine Bilirubin Dipstick Negative (Negative); Urine Clarity Clear (Clear); Urine Urobilinogen Normal (Normal)
[2023-01-02 23:36] LABS: Bedside Glucose 142 mg/dL (74-106)
[2023-01-02 23:49] LABS: Bacteria RARE /hpf (None Seen); Red Blood Cells-Urine 0-5 SEEN /hpf (0-5)
[2023-01-03 03:30] VITALS: BP 139/74; PULSE 71; RESP 17; TEMP 36.8; O2SAT 98
[2023-01-03] MEDS: Levothyroxine 88 MCG Tablet PO (05:25)
--- NOTE | 2023-01-03 06:13 | PCM.PN.SRG ---
Subjective Subjective Patient sleeping very soundly this morning. Upon awakening him he has no particular complaints. Records reveal that he had a large formed stool. He denies any nausea. He has previously been written for sips of clear liquids but admittedly his oral intake remains low. Objective Data Objective Data Vital Signs: Vital Signs Temp Pulse Resp BP Pulse Ox O2 Del Method 98.3 F 71 17 139/74 H 98 Room Air 01/03/23 03:30 01/03/23 03:30 01/03/23 03:30 01/03/23 03:30 01/03/23 03:30 01/03/23 03:34 Oxygen Delivery Method Room Air Weight: 172 lb 2.896 oz Body Mass Index (BMI) 24.6 Intake & Output: Intake and Output for Last 24 Hours 01/01/23 01/02/23 01/03/23 23:59 23:59 23:59 Intake Total 1534.17 / 1559.17 2755.83 / 2755.83 360 / 360 Output Total 1250 / 1475 1625 / 1625 1600 / 1600 Balance 284.17 / 84.17 1130.83 / 1130.83 -1240 / -1240 Lab / Micro Data 01/02/23 06:00 01/02/23 06:00 Labs: Laboratory Results - last 24 hr 01/02/23 05:52: POC Glucose 104 01/02/23 06:00: WBC 3.5 L, RBC 2.32 L, Hgb 7.2 L, Hct 22.1 L, MCV 95.3 H, MCH 31.0, MCHC 32.6, RDW Std Deviation 51.6 H, RDW Coeff of [place] 14.8 H, Plt Count 114 L, MPV 9.5, Immature Gran % (Auto) 3.500 H, Neut % (Auto) 15.3 L, Lymph % (Auto) 77.1 H, [place] % (Auto) 2.9, Eos % (Auto) 0.9, Baso % (Auto) 0.3, Absolute Neuts (auto) 0.5 L, Absolute Lymphs (auto) 2.66, Nucleated RBC % 0, Platelet Estimate SLT DEC, Hypochromasia 1+, Anisocytosis 1+, Sodium 139, Potassium 3.8, Chloride 107, Carbon Dioxide 27.0, Anion Gap 5, BUN 22 H, Creatinine 0.84, Estim Creat Clear Calc 66.39, Est GFR (MDRD) Af Amer 111, Est GFR (MDRD) Non-Af 92, BUN/Creatinine Ratio 26.0 H, Glucose 107 H, Calcium 7.8 L 01/02/23 11:55: POC Glucose 127 H 01/02/23 16:59: POC Glucose 106 01/02/23 23:10: Urine Color Yellow, Urine Clarity Clear, Urine pH 8.0, Ur Specific [place] 1.010, Urine Protein 15 H, Urine Glucose (UA) Normal, Urine Ketones Negative, Urine Occult Blood Negative, Urine Nitrite Negative, Urine Bilirubin Negative, Urine Urobilinogen Normal, Ur Leukocyte Esterase Negative, Urine RBC 0-5 SEEN, Urine WBC 0 SEEN, Ur Squamous Epith Cells 0 SEEN, Urine Bacteria RARE, Urine Mucus 0 SEEN 01/02/23 23:16: POC Glucose 142 H Micro: Microbiology 01/02/23 23:10 Nasal Secretion SARS-CoV-2 & FLU Antigen (Rapid) - Final 01/01/23 10:11 Stool Stool Occult Blood (CONSTANTIN) - Final Occult Blood Positive Radiography Diagnostic Testing: Radiology Impression Abdomen X-Ray 01/02/23 06:30 IMPRESSION: Mildly improved but persistent gaseous distention of small bowel loops and paucity of colon gas. Likely improved ileus, cannot exclude obstruction. Electronically Signed: Sandra Harrison MD at 7:09 EDT , Chest X-Ray 01/02/23 22:13 IMPRESSION: Possible right infrahilar infiltrate. Electronically Signed: Deandre Stoddard DO at 23:08 EDT , Physical Exam Resp normal respiratory effort GI GI Narrative: Soft, slightly distended, infrequent bowel sounds, laparoscopic incisions very clean and dry, no focal tenderness rebound or guarding Assessment & Plan Assessment/Plan (1) Postoperative ileus: PLAN: I have encouraged him to try to eat some full liquids and we will see how oral intake goes. I have moderated his IV fluids to 30 cc an hour. While he is in the hospital and being monitored we will DC his Mills and see if he can spontaneously void. If not he will require outpatient follow-up with urology. The large formed stools obviously very encouraging. It would seem that a significant component is his simple generalized failure to thrive and lack of motivation. Cale Gross M.D., F.A.C.S.
[2023-01-03 06:58] LABS: Bedside Glucose 137 mg/dL (74-106)
[2023-01-03 07:01] LABS: Hematocrit 27.2 % (40-54); Hemoglobin 8.6 g/dL (13.0-16.5); Mean Corp Hgb Conc 31.6 g/dL (32-36); Mean Corpuscular Hgb 30.4 pg (27.0-32.0); Mean Corpuscular Volume 96.1 fL (80-94); Mean Platelet Vol. 9.7 fl (6.2-12.0); Platelet Count 142 K/mm3 (150-450); RBC Distribution Width CV 14.6 % (11.6-14.6); RBC Distribution Width SD 51.6 fl (35.1-43.9); Red Blood Count 2.83 M/mm3 (4.6-6.2); White Blood Count 3.9 K/mm3 (4.4-11.0)
[2023-01-03 07:46] VITALS: O2SAT 100
[2023-01-03 08:27] VITALS: RESP 16; O2SAT 95
[2023-01-03 08:35] VITALS: BP 150/78; PULSE 87; RESP 17; TEMP 36.8
[2023-01-03] MEDS: Aspirin E.C. 81 MG Tablet PO (08:37)
[2023-01-03] MEDS: Loratadine 10 MG Tablet PO (08:37)
[2023-01-03] MEDS: Enoxaparin 40 MG/0.4 ML Syringe SC (08:37)
[2023-01-03] MEDS: Carvedilol 3.125 MG TABLET PO ×2 (08:37→17:44)
[2023-01-03] MEDS: Polyethylene Glycol 3350 17 GM PACKET PO (08:38)
[2023-01-03] MEDS: Finasteride 5 MG Tablet PO (08:43)
[2023-01-03] MEDS: Senna/Docusate Sodium 1 Tablet PO ×2 (08:43→20:42)
[2023-01-03] MEDS: Insulin Lispro 100 UNIT/ML INSULN.PEN SC (11:15)
[2023-01-03] MEDS: Acetaminophen 325 MG Tablet 650 MG PO (14:40)
[2023-01-03 14:50] VITALS: BP 139/69; PULSE 84; RESP 16; TEMP 37.1; O2SAT 95
[2023-01-03] MEDS: Glucerna Shake 120 ML LIQUID PO ×2 (15:43→17:50)
--- NOTE | 2023-01-03 15:47 | PN.HOSP_ITS ---
Reason for Visit Reason for Visit: Diagnoses Anemia, unspecified (12/30/22) Thrombocytopenia, unspecified (12/30/22) Type 2 diabetes mellitus with hyperglycemia (12/30/22) Ileus, unspecified (12/30/22) Constipation, unspecified (12/30/22) Other postprocedural complications and disorders of digestive system (12/30/22) Retention of urine, unspecified (12/30/22) Other malaise (12/30/22) Adult failure to thrive (12/30/22) Personal history of other diseases of the digestive system (12/30/22) Other specified postprocedural states (12/30/22) Subjective Subjective Patient seen at bedside this morning. Was asleep in bedside chair when I entered the room. Was very fatigued from interview and had difficulty not following sleep, but otherwise answered my questions appropriately. Was advanced to a full liquid diet this morning by surgery and states he has gotten some liquids down since then, but otherwise does not feel very hungry. Denies any nausea currently. Denies any episodes of vomiting over the last few days. Did have 1 very large bowel movement overnight. Denies any abdominal pain or distention. Denies any fevers or chills. No other acute concerns. Objective Data Objective Data Vital Signs: Vital Signs Temp Pulse Resp BP Pulse Ox O2 Del Method 98.8 F 84 16 139/69 H 95 Room Air 01/03/23 14:50 01/03/23 14:50 01/03/23 14:50 01/03/23 14:50 01/03/23 14:50 01/03/23 14:50 Oxygen Delivery Method Room Air Weight: 78.1 kg Body Mass Index (BMI) 24.6 Intake & Output: Intake and Output for Last 24 Hours 01/01/23 01/02/23 01/03/23 23:59 23:59 23:59 Intake Total 1534.17 / 1559.17 2755.83 / 2755.83 360 / 360 Output Total 1250 / 1475 1625 / 1625 1800 / 1800 Balance 284.17 / 84.17 1130.83 / 1130.83 -1440 / -1440 Lab / Micro Data 01/03/23 06:20 01/02/23 06:00 Labs: Laboratory Results - last 24 hr 01/02/23 16:59: POC Glucose 106 01/02/23 23:10: Urine Color Yellow, Urine Clarity Clear, Urine pH 8.0, Ur Specific [place] 1.010, Urine Protein 15 H, Urine Glucose (UA) Normal, Urine Ketones Negative, Urine Occult Blood Negative, Urine Nitrite Negative, Urine Bilirubin Negative, Urine Urobilinogen Normal, Ur Leukocyte Esterase Negative, Urine RBC 0-5 SEEN, Urine WBC 0 SEEN, Ur Squamous Epith Cells 0 SEEN, Urine Bacteria RARE, Urine Mucus 0 SEEN 01/02/23 23:16: POC Glucose 142 H 01/03/23 05:24: POC Glucose 137 H 01/03/23 06:20: WBC 3.9 L, RBC 2.83 L, Hgb 8.6 L, Hct 27.2 L, MCV 96.1 H, MCH 30.4, MCHC 31.6 L, RDW Std Deviation 51.6 H, RDW Coeff of Lamont 14.6, Plt Count 142 L, MPV 9.7 Micro: Microbiology 01/02/23 23:10 Nasal Secretion SARS-CoV-2 & FLU Antigen (Rapid) - Final 01/01/23 10:11 Stool Stool Occult Blood (CONSTANTIN) - Final Occult Blood Positive Radiography Diagnostic Testing: Radiology Impression Chest X-Ray 01/02/23 22:13 IMPRESSION: Possible right infrahilar infiltrate. Electronically Signed: Deandre Stoddard DO at 23:08 EDT Reading Location ID and State: [facility] / [place] Tel , Service support , Physical Exam Const alert, oriented x3, no apparent distress and average body habitus Constitutional Narrative: Pleasant elderly male, sitting comfortably in bedside chair, fatigued today but answering questions appropriately, no acute distress. General Appearance: cooperative and comfortable HEENT normocephalic, head/scalp atraumatic, hearing grossly normal bilaterally, nasal mucous membranes and turbinates normal and moist oral mucous membranes Eyes PERRL, EOMs intact bilaterally and conjunctivae normal Neck full ROM, no lymphadenopathy and supple Lymph Lymphatic: no lymphadenopathy noted Chest inspection of chest normal Resp normal respiratory effort, normal air movement, no use of accessory muscles and clear to auscultation bilaterally Cardio regular rate, regular rhythm, no murmurs and peripheral pulses 2+ throughout GI GI Narrative: Mildly distended but soft and nontender to palpation. Back/Spine normal ROM Extremity normal to inspection, full ROM and no pedal edema Skin no rashes or lesions noted Psych mental status grossly normal Assessment & Plan Assessment/Plan (1) Postoperative ileus: PLAN: Plan Patient is an 87-year-old male with history of debility, urinary retention, anemia, hypothyroidism, type 2 diabetes, CAD, hypertension, cognitive impairment and recent laparoscopic bilateral inguinal hernia repair (12/27/2022) who presented to [facility] ED on 12/30/2022 with worsening weakness and constipation. 1. Postoperative ileus Presumed secondary to recent laparoscopic bilateral inguinal hernia repair on 12/27. KUB on admit showed mild constipation with no concern for ileus or SBO. Repeat KUB on 01/01 showed multiple dilated small bowel loops suspicious for SBO. KUB on 01/02 showed mildly improved but persistent gaseous distention of small bowel loops. Had large bowel movement overnight on 01/02 and continues to pass flatus. ? General surgery following. Advance to full liquid diet on 01/03, with hope of advancing to full diet by tomorrow. Will discuss with surgery but if patient tolerates regular diet well, should be stable for discharge to TCU. 2. Generalized weakness, debility, failure to thrive ? PT/OT/case management following. Approved for TCU on discharge, pre-CERT pending as noted below. 3. Urinary retention Per history, follows with Dr. Peres. Has never required a Mills catheter at home in the past. Mills catheter placed on admission due to concern for urinary retention. ? Mills catheter removed on 01/03 per surgery recommendations for voiding trial. Continue home Proscar and Flomax. Holding home dutasteride and oxybutynin. If patient fails voiding trial, okay to replace Mills with outpatient follow-up with urology. Will monitor closely. 4. Poor p.o. intake ? Dietitian consulted. Advanced to full liquid diet as above. 5. Acute on chronic anemia Presumed secondary to recent surgery. Baseline hemoglobin between 10 and 11. Hemoglobin 8.6 on admit, down trended to 7.2 on 01/02 but then improved to 8.6 on 01/03, have suspicion the hemoglobin reading on 01/02 was erroneous. Iron studies consistent with anemia of chronic disease. ? Monitor CBC daily. Likely plan to transfuse if hemoglobin less than 7. Okay to continue home aspirin. Chronic medical conditions: ? Hypothyroidism: TSH normal. Continue home levothyroxine. ? Type 2 diabetes: Diet controlled. Cardiac/carb controlled diet while inpatient. Monitor, add sliding scale as needed. ? CAD, hypertension: Continue home atorvastatin, Coreg, aspirin. ? Cognitive impairment: Unclear baseline. Alert and oriented at this time. Likely complicates above. ? Suspected depression: Remeron 15 mg nightly initiated, monitor. DVT prophylaxis: Lovenox CODE STATUS: DNR CCA, DO NOT INTUBATE Expected disposition: Accepted to TCU, pre-CERT pending. Likely medically ready in 1 to 2 days. Total clinical time spent by myself addressing the patient's medical issues, reviewing all the data, and collaborating with patient's care team: 35 minutes. Charges/Coding Visit Charges Inpatient E&M: 24293 Subs Hosp L2
[2023-01-03 16:35] LABS: Bedside Glucose 157 mg/dL (74-106)
[2023-01-03 16:42] LABS: Bedside Glucose 137 mg/dL (74-106)
[2023-01-03] MEDS: Tamsulosin HCl 0.4 MG Capsule PO (17:44)
[2023-01-03 20:36] VITALS: BP 147/78; PULSE 75; RESP 18; TEMP 37.3; O2SAT 94
[2023-01-03] MEDS: Atorvastatin Calcium 40 MG Tablet PO (20:42)
[2023-01-03] MEDS: Mirtazapine 15 MG Tablet PO (20:42)
[2023-01-03 21:52] LABS: Bedside Glucose 148 mg/dL (74-106)
[2023-01-04 03:20] VITALS: BP 144/70; PULSE 83; RESP 18; TEMP 36.9; O2SAT 94
[2023-01-04] MEDS: Insulin Lispro 100 UNIT/ML INSULN.PEN SC (04:40)
[2023-01-04] MEDS: Levothyroxine 88 MCG Tablet PO (04:41)
[2023-01-04 05:26] LABS: Bedside Glucose 152 mg/dL (74-106)
--- NOTE | 2023-01-04 06:17 | PCM.PN.SRG ---
Subjective Subjective Patient alert this morning and able to respond to questions. He denies any significant abdominal or groin pain. He states that he thinks he remembers eating some dinner. No current nausea. He has no specific complaints. Objective Data Objective Data Vital Signs: Vital Signs Temp Pulse Resp BP Pulse Ox O2 Del Method 98.4 F 83 18 144/70 H 94 Room Air 01/04/23 03:20 01/04/23 03:20 01/04/23 03:20 01/04/23 03:20 01/04/23 03:20 01/04/23 03:20 Oxygen Delivery Method Room Air Weight: 172 lb 2.896 oz Body Mass Index (BMI) 24.6 Intake & Output: Intake and Output for Last 24 Hours 01/02/23 01/03/23 01/04/23 23:59 23:59 23:59 Intake Total 2755.83 / 2755.83 360 / 360 Output Total 1625 / 1625 1800 / 1800 Balance 1130.83 / 1130.83 -1440 / -1440 Lab / Micro Data 01/03/23 06:20 01/02/23 06:00 Labs: Laboratory Results - last 24 hr 01/03/23 05:24: POC Glucose 137 H 01/03/23 06:20: WBC 3.9 L, RBC 2.83 L, Hgb 8.6 L, Hct 27.2 L, MCV 96.1 H, MCH 30.4, MCHC 31.6 L, RDW Std Deviation 51.6 H, RDW Coeff of Lamont 14.6, Plt Count 142 L, MPV 9.7 01/03/23 11:14: POC Glucose 157 H 01/03/23 16:24: POC Glucose 137 H 01/03/23 20:41: POC Glucose 148 H 01/04/23 04:40: POC Glucose 152 H Micro: Microbiology 01/02/23 23:10 Nasal Secretion SARS-CoV-2 & FLU Antigen (Rapid) - Final 01/01/23 10:11 Stool Stool Occult Blood (CONSTANTIN) - Final Occult Blood Positive Physical Exam GI GI Narrative: Softly distended, intermittent low pitched bowel sounds, laparoscopic incisions clean and dry, scrotal ecchymosis Assessment & Plan Assessment/Plan (1) Postoperative ileus: PLAN: The patient has had several stools and seemingly tolerated diet advancement although admittedly his oral intake is still compromise. He does appear to be much more alert this morning. Mills catheter was removed apparently he has had episodes of incontinence. Postvoid bladder scan does not demonstrate significant residual No additional surgical intervention anticipated at this time. Can plan for office follow-up in 2 weeks. Cale Gross M.D., F.A.C.S.
[2023-01-04 06:50] LABS: Hematocrit 25.6 % (40-54); Hemoglobin 8.3 g/dL (13.0-16.5); Mean Corp Hgb Conc 32.4 g/dL (32-36); Mean Corpuscular Hgb 30.7 pg (27.0-32.0); Mean Corpuscular Volume 94.8 fL (80-94); Mean Platelet Vol. 9.7 fl (6.2-12.0); Platelet Count 174 K/mm3 (150-450); RBC Distribution Width CV 14.6 % (11.6-14.6); RBC Distribution Width SD 49.7 fl (35.1-43.9); White Blood Count 4.3 K/mm3 (4.4-11.0)
[2023-01-04 08:53] VITALS: BP 137/67; PULSE 80; RESP 16; TEMP 37.3; O2SAT 94
[2023-01-04] MEDS: Enoxaparin 40 MG/0.4 ML Syringe SC (09:05)
[2023-01-04] MEDS: Carvedilol 3.125 MG TABLET PO (09:05)
[2023-01-04] MEDS: Senna/Docusate Sodium 1 Tablet PO (09:05)
[2023-01-04] MEDS: Aspirin E.C. 81 MG Tablet PO (09:05)
[2023-01-04] MEDS: Loratadine 10 MG Tablet PO (09:06)
[2023-01-04] MEDS: Polyethylene Glycol 3350 17 GM PACKET PO (09:07)
[2023-01-04] MEDS: Finasteride 5 MG Tablet PO (09:07)
--- NOTE | 2023-01-04 09:11 | CASEMGMT ---
Social Work SW met with pt and introduced self and role of SW. Pt notified that TCU has accepted and precert has been obtained. Pt to transfer to tCU when medically ready. Pt agreeable to dc plan. Plan: TCU, when medically ready CAMILA Jaquez
[2023-01-04] MEDS: Glucerna Shake 120 ML LIQUID PO (09:13)
[2023-01-04] MEDS: Lactated Ringers 1,000 ML 30 ML IV (10:28)
--- NOTE | 2023-01-04 11:31 | PCM.DC ---
Discharge Instructions Diet Discharge Diet: No restrictions Activity Discharge Activity: Return to Normal Activity Weight Bearing Status: Full weight bearing Follow Up Care Please Follow Up With: Wagner Gr MD When: As needed Test Results: Test results from this visit will be discussed in further detail at your follow-up appointment, if applicable. Pending Tests Upon Discharge: None Discharge Plan Admission Admit Date/Time: 12/30/22 22:00 Primary Reason for Your Visit: Postoperative ileus Attending Provider: Vinayak Peralta Primary Care Provider: Wagner Gr Consulting Providers: Smith Roberts; Iker Tejeda; Belem Godinez Instructions Additional Instructions / Restrictions: Please start taking the following medications on discharge: ? Mirtazapine 15 mg at night, for sleep aid and depression ? Flomax 0.4 mg at night, for prostate enlargement ? MiraLAX 17 g daily, for constipation ? Senna 1 tablet twice daily, for constipation Please stop taking the following medications: ? Oxybutynin Continue all other home medications as previously prescribed. Please call your primary care doctor to schedule follow-up appointment after you have been discharged from the rehab unit. Follow-up with the general surgery office as needed. Discharge Orders/Prescriptions Prescriptions: New polyethylene glycol 3350 17 gram Powder In Packet 17 g PO DAILY Qty: 30 2RF mirtazapine 15 mg Tablet 15 mg PO QHS 90 Days Qty: 90 1RF sennosides-docusate sodium [Stool Softener-Stimulant Laxat] 8.6-50 mg Tablet 1 tab PO BID Qty: 60 2RF tamsulosin 0.4 mg Capsule 0.4 mg PO DAILY@1730 90 Days Qty: 90 1RF Continued carvedilol 3.125 MG tablet 3.125 mg PO BID aspirin 81 MG tablet 81 mg PO DAILY@0800 dutasteride 0.5 mg capsule 0.5 mg PO DAILY levothyroxine 88 mcg tablet 88 mcg PO DAILY atorvastatin 40 mg tablet 40 mg PO QHS Qty: 90 3RF Discontinued oxybutynin chloride 10 mg tablet extended release 24hr 10 mg PO DAILY Patient Comments: TAKE 1 TABLET BY MOUTH)ONCE DAILY hydrocodone-acetaminophen 5-325 mg tablet 1 tab PO Q8H PRN (Reason: pain) 2 Days Qty: 5 0RF hydrocodone-acetaminophen 5-325 mg tablet 1 tab PO Q4H PRN PRN (Reason: Pain) 2 Days Qty: 14 0RF Referrals / Follow Up: Wagner Gr MD [Primary Care Provider] - Disposition Disposition (needs filled in before D/C Order can be placed): [facility]
--- NOTE | 2023-01-04 12:31 | PCM.DC.SUM ---
Providers Date of Admission: 12/30/22 Date of Discharge: 01/04/23 Primary Care Physician: Dr. Wagner Gr MD Consultations 12/30/22 23:26 Consult: General Surgery Routine Consulting Provider: Iker Tejeda Reason for Consult: Constipation and urinary retention postsurgery EMERGENT Consult: No MD Notified: Yes Date Notified: 12/30/22 Time Notified: 22:15 Method of Notification: Text Reason For Visit: POST-OPERATIVE CONSTIPATION Diagnosis Discharge Diagnosis (1) Postoperative ileus: Status: Acute Code(s): K91.89 - Other postprocedural complications and disorders of digestive system; K56.7 - Ileus, unspecified Medications at Discharge Home Medications atorvastatin 40 mg tablet [address] Gr manages cholesterol #90 tabs 05/24/18 carvedilol 3.125 mg tablet 3.125 mg PO BID bp 01/29/20 aspirin 81 mg tablet,delayed release 81 mg PO DAILY@0800 [facility] 03/09/20 dutasteride 0.5 mg capsule 0.5 mg PO DAILY 12/08/22 levothyroxine 88 mcg tablet 88 mcg PO DAILY 12/26/22 mirtazapine 15 mg tablet 15 mg PO QHS 90 days #90 tabs 01/04/23 polyethylene glycol 3350 17 gram oral powder packet 17 g PO DAILY #30 ea 01/04/23 sennosides 8.6 mg-docusate sodium 50 mg tablet (Stool Softener-Stimulant Laxative) 1 tab PO BID #60 tabs 01/04/23 tamsulosin 0.4 mg capsule 0.4 mg PO DAILY@1730 90 days #90 caps 01/04/23 Hospital Course Operations None Procedures EKG and - (Chest x-ray x2, KUB x3) Summary of Care Provided Minutes Spent on Discharge: 38 Hospital Course: worsening weakness and constipation. Hospital course with multiple medical conditions addressed as below. Postoperative ileus: Presumed secondary to recent laparoscopic bilateral inguinal hernia repair on 12/27. General surgery followed. KUB on admit showed mild constipation with no concern for ileus or SBO. Repeat KUB on 01/01 showed multiple dilated small bowel loops suspicious for SBO. Per surgery, imaging findings were most consistent with ileus and did not show a bowel obstruction. KUB on 01/02 showed mildly improved but persistent gaseous distention of small bowel loops. Had large bowel movement overnight on 01/02. Was advanced to a regular diet by 01/04 without issue. Daily MiraLAX and senna were started during admission, will continue these on discharge. Per surgery, can plan for office follow-up in 2 weeks. Generalized weakness, debility, failure to thrive: PT/OT/case management followed. Discharged to TCU for acute rehab in stable condition. Urinary retention: Per history. Follows with Dr. Peres with urology in the office. Suspect worsened urinary retention was due to postoperative ileus. Mills catheter was placed on admission with good urine output. Patient notably had never required a Mills catheter at home. Home oxybutynin was stopped given concern that this could worsen urinary retention. Mills catheter was removed on 01/03 and patient passed a voiding trial. He did notably have some incontinence with urine after that. We will continue home Flomax and dutasteride but hold oxybutynin on discharge. Follow-up with urology outpatient as needed. Poor p.o. intake: Dietitian followed. Nutrition supplements added with meals, would recommend continuing to do this at rehab and going forward at home. Acute on chronic anemia: Presumed secondary to recent surgery. Baseline hemoglobin between 10 and 11. Hemoglobin 8.6 on admit, down trended to 7.2 on 01/02 but then improved back to 8.6 on 01/03, suspect 7.2 was an erroneous read. Iron studies consistent with anemia of chronic disease. Recommend repeat CBC in the next 1 to 2 weeks to ensure that hemoglobin remained stable. Okay to continue home aspirin on discharge. Discharge diagnoses: ? Postoperative ileus, improved ? Generalized weakness, debility, failure to thrive ? Urinary retention, improved ? Poor p.o. intake ? Acute on chronic anemia, stable ? Hypothyroidism ? Type 2 diabetes ? CAD ? Hypertension ? Cognitive impairment ? Depression Total clinical time spent by myself addressing the patient's discharge needs: 38 minutes. Physical Exam Const alert, oriented x3, no apparent distress and average body habitus Constitutional Narrative: Pleasant elderly male, lying comfortably in bed, fatigued but answering questions appropriately, no acute distress. General Appearance: cooperative and comfortable HEENT normocephalic, head/scalp atraumatic, hearing grossly normal bilaterally, nasal mucous membranes and turbinates normal and moist oral mucous membranes Eyes PERRL, EOMs intact bilaterally and conjunctivae normal Neck full ROM, no lymphadenopathy and supple Lymph Lymphatic: no lymphadenopathy noted Chest inspection of chest normal Resp normal respiratory effort, normal air movement, no use of accessory muscles and clear to auscultation bilaterally Cardio regular rate, regular rhythm, no murmurs and peripheral pulses 2+ throughout GI GI Narrative: Mildly distended but soft and nontender to palpation. Back/Spine normal ROM Extremity normal to inspection, full ROM and no pedal edema Skin no rashes or lesions noted Psych mental status grossly normal Weight / BMI Weight Weight: 78.1 kg Body Mass Index (BMI) 24.6 ABG / Lab / Microbiology Data 01/04/23 05:58 01/02/23 06:00 Laboratory: Laboratory Results - last 24 hr 01/03/23 11:14: POC Glucose 157 H 01/03/23 16:24: POC Glucose 137 H 01/03/23 20:41: POC Glucose 148 H 01/04/23 04:40: POC Glucose 152 H 01/04/23 05:58: WBC 4.3 L, RBC 2.70 L, Hgb 8.3 L, Hct 25.6 L, MCV 94.8 H, MCH 30.7, MCHC 32.4, RDW Std Deviation 49.7 H, RDW Coeff of Lamont 14.6, Plt Count 174, MPV 9.7 Microbiology: Microbiology 01/02/23 23:10 Urine Catheter - Mills Urine Culture - Final Culture exhibits no growth. 01/02/23 23:10 Nasal Secretion SARS-CoV-2 & FLU Antigen (Rapid) - Final 01/01/23 10:11 Stool Stool Occult Blood (CONSTANTIN) - Final Occult Blood Positive D/C Instructions Discharge Diet: No restrictions Weight Bearing Status: Full weight bearing Pending Tests Upon Discharge: None Please Follow Up With: Wagner Gr MD When: As needed Meaningful Use Info Meaningful Use Diagnoses (Choose all that apply): None applicable Discharge Plan Admission Admit Date/Time: 12/30/22 22:00 Primary Reason for Your Visit: Postoperative ileus Attending Provider: Vinayak Peralta Primary Care Provider: Wagner Gr Consulting Providers: Smith Roberts; Iker Tejeda; Belem Godinez Instructions Additional Instructions / Restrictions: Please start taking the following medications on discharge: ? Mirtazapine 15 mg at night, for sleep aid and depression ? Flomax 0.4 mg at night, for prostate enlargement ? MiraLAX 17 g daily, for constipation ? Senna 1 tablet twice daily, for constipation Please stop taking the following medications: ? Oxybutynin Continue all other home medications as previously prescribed. Please call your primary care doctor to schedule follow-up appointment after you have been discharged from the rehab unit. Follow-up with the general surgery office as needed. Discharge Orders/Prescriptions Prescriptions: New polyethylene glycol 3350 17 gram Powder In Packet 17 g PO DAILY Qty: 30 2RF mirtazapine 15 mg Tablet 15 mg PO QHS 90 Days Qty: 90 1RF sennosides-docusate sodium [Stool Softener-Stimulant Laxat] 8.6-50 mg Tablet 1 tab PO BID Qty: 60 2RF tamsulosin 0.4 mg Capsule 0.4 mg PO DAILY@1730 90 Days Qty: 90 1RF Continued carvedilol 3.125 MG tablet 3.125 mg PO BID aspirin 81 MG tablet 81 mg PO DAILY@0800 dutasteride 0.5 mg capsule 0.5 mg PO DAILY levothyroxine 88 mcg tablet 88 mcg PO DAILY atorvastatin 40 mg tablet 40 mg PO QHS Qty: 90 3RF Discontinued oxybutynin chloride 10 mg tablet extended release 24hr 10 mg PO DAILY Patient Comments: TAKE 1 TABLET BY MOUTH)ONCE DAILY hydrocodone-acetaminophen 5-325 mg tablet 1 tab PO Q8H PRN (Reason: pain) 2 Days Qty: 5 0RF hydrocodone-acetaminophen 5-325 mg tablet 1 tab PO Q4H PRN PRN (Reason: Pain) 2 Days Qty: 14 0RF Referrals / Follow Up: Wagner Gr MD [Primary Care Provider] - Disposition Disposition (needs filled in before D/C Order can be placed): [facility] Charges/Coding Visit Charges Inpatient E&M: 95340 Disch Hosp >30min
[2023-01-04 13:55] LABS: Bedside Glucose 120 mg/dL (74-106)
[2023-01-04 13:56] VITALS: BP 149/63; PULSE 67; RESP 16; TEMP 37.1; O2SAT 96
--- NOTE | 2023-01-04 14:46 | CASEMGMT ---
Social Work Per physician, pt is ready for discharge today. Discharge orders faxed to TCU. SW met with pt and notified that dc will be today and pt is agreeable. Phone call to pt dgleonid Parker and jerzy CADENA regarding discharge today. Nursing notified. Disposition: TCU, skilled level of care CAMILA Jaquez
== END 2023-01-04 16:40 | disposition skilled nursing facility (03) ==
LOC: ED 22:14 → MS3 22:22
PROVIDERS: Internal Medicine; Admitting Provider Hospitalist; Emergency Provider Emergency Medicine; PCP Family Medicine; Visit Provider Hospitalist
DX: K91.89 Other postprocedural complications and disorders of digestive system (principal); F03.90 Unspecified dementia, unspecified severity, without behavioral disturbance, psychotic disturbance, mood disturbance, and anxiety; K56.7 Ileus, unspecified; D69.6 Thrombocytopenia, unspecified; R33.9 Retention of urine, unspecified; Z87.891 Personal history of nicotine dependence; R53.81 Other malaise; I25.10 Atherosclerotic heart disease of native coronary artery without angina pectoris; Z99.3 Dependence on wheelchair; R41.89 Other symptoms and signs involving cognitive functions and awareness; R62.7 Adult failure to thrive; D64.9 Anemia, unspecified; F32.A Depression, unspecified; Z95.5 Presence of coronary angioplasty implant and graft; E03.9 Hypothyroidism, unspecified; I10 Essential (primary) hypertension; Z79.82 Long term (current) use of aspirin; E78.00 Pure hypercholesterolemia, unspecified; G89.18 Other acute postprocedural pain; E86.0 Dehydration; Z86.16 Personal history of COVID-19; Z79.899 Other long term (current) drug therapy; Z79.890 Hormone replacement therapy; K21.9 Gastro-esophageal reflux disease without esophagitis; R41.0 Disorientation, unspecified
CPT/HCPCS: 36415; 51702; 71045; 71046; 74018; 74019; 80048; 80053; 81001; 82274; 82728; 82962; 83540; 83550; 83735; 84100; 84443; 85025; 85027; 87040; 87086; 87428; 96361; 96365; 96366; 96372; 96375; 97110; 97116; 97129; 97162; 97166; 97530; 97535; 99221; 99285; J7030; J7050; J7120; A4216; G0378; J2405; J2916; J3490

== ENCOUNTER 2023-01-04 16:57 | Inpatient (IN) | payer MEDICARE, SELFPAY ==
[2023-01-04 17:04] VITALS: BP 184/49; PULSE 85; RESP 16; TEMP 36.8; O2SAT 94
[2023-01-04 17:29] VITALS: BMI 25.1
[2023-01-04] MEDS: Tamsulosin HCl 0.4 MG Capsule PO (18:49)
--- NOTE | 2023-01-04 21:00 | HP.PCM_ITS ---
HPI - General General Date of Admission: 01/04/23 Date of Service: 01/05/23 Chief Complaint: Here for rehabilitation. HPI Narrative 12/30/2022 ERMELINDA DIEGO, is a 87 Male who presents to [facility] Emergency Department with complaint. Weakness, unable to urinate, constipation. Bilateral laparoscopic hernia repair yesterday. Unable to urinate after Camacho removal. Thirst, dry mouth, abdominal pain, distention. Hemoglobin 8.8, BUN 22, Creatinine 1.3. IV fluids given, Chest X-ray negative. 12/30/2022 Admit to Hospital. PT/OT for debility. Consult General Surgery for status post bilateral hernia repair. IV fluids for dehydration. Camacho for urinary retention. 12/31/2022 PT/OT for placement. Finasteride, Tamsulosin, hold oxybutynin, Camacho catheter for urinary retention. Miralax, senna/colace twice daily for constipation. Stool guaiac, iron for anemia. 01/01/2023 Flat affect, poor intake, poor motivation. IV fluids, General surgery for ileus. Anemia of chronic disease. . 01/02/2023 Clear liquids, mild nausea, abdominal distention. Passing flatus, small amount of stool, postoperative ileus. Transfuse if hemoglobin less than 7.0. 01/03/2023 Large bowel movement, full liquids, decrease IV fluids to 30cc/hour. 01/04/2023 No complaints. Several stools, tolerating diet, more alert. Camacho out. 01/04/2023 Admit to TCU with debility, here for rehabilitation, strengthening, prior to discharge home alone. [facility] Medical History (Updated 01/05/23 @ 00:01 by Background Daemon) Acute on chronic anemia Aneurysm of infrarenal abdominal aorta Anxiety Arthritis Atherosclerotic heart disease of [place] coronary artery without angina pectoris Cancer Cardiology follow-up encounter Dementia Depression Essential hypertension Former smoker Gastric reflux Hard of hearing High cholesterol History of echocardiogram History of lateral wall myocardial infarction Left ventricular systolic dysfunction Lymphoma Memory deficit Pneumonia due to COVID-19 virus Pure hypercholesterolemia Stented coronary artery (~02/22/16) Thrombocytopenia Thyroid disease Type 2 diabetes mellitus Type 2 diabetes mellitus with hyperglycemia Urinary retention Wears glasses Wears hearing aid Wears partial dentures Home Medications atorvastatin 40 mg tablet [address] Gr manages cholesterol #90 tabs 05/24/18 [Rx Last Taken 01/03/23] carvedilol 3.125 mg tablet 3.125 mg PO BID bp 01/29/20 [History Last Taken 01/04/23] aspirin 81 mg tablet,delayed release 81 mg PO DAILY@0800 HEART [facility] 03/09/20 [ History Last Taken 01/04/23] dutasteride 0.5 mg capsule 0.5 mg PO DAILY prostate 12/08/22 [History Last Taken Unknown] levothyroxine 88 mcg tablet 88 mcg PO DAILY thyroid 12/26/22 [History Last Taken 12/30/22] mirtazapine 15 mg tablet 15 mg PO QHS mood/appetite 90 days #90 tabs 01/04/23 [Rx Last Taken Unknown] polyethylene glycol 3350 17 gram oral powder packet 17 g PO DAILY bowels #30 ea 01/04/23 [Rx Last Taken Unknown] sennosides 8.6 mg-docusate sodium 50 mg tablet (Stool Softener-Stimulant La xative) 1 tab PO BID bowels #60 tabs 01/04/23 [Rx Last Taken 01/04/23] tamsulosin 0.4 mg capsule 0.4 mg PO DAILY@1730 prostate 90 days #90 caps 01/04/23 [Rx Last Taken Unknown] Allergy/AdvReac Type Severity Reaction Status Date / Time Penicillins Allergy Hives Verified 12/30/22 20:57 tree and shrub pollen Allergy Other Verified 12/30/22 20:57 lisinopril AdvReac Mild cough Verified 12/30/22 20:57 Family History Father , age 39 from [place] CAD (coronary artery disease) Myocardial infarction Sudden cardiac Mother Diabetes Surgical History (Updated 01/05/23 @ 00:01 by [facility] Dadottie) History of appendectomy History of left heart catheterization Hx of bilateral cataract extraction Hx of cystoscopy Hx of tonsillectomy Presence of coronary angioplasty implant and graft (~02/22/16) S/P inguinal hernia repair Social History (Updated 01/04/23 @ 21:[address] Andrea Seymour MD) household members: none Smoking Status: Former smoker how long ago did patient quit smokin years ago alcohol intake: current alcohol intake frequency: a few times a week Alcohol type: beer substance use type: does not use caffeine: Yes Type: coffee Number of servings: 2 ROS Constitutional Constitutional: Denies chills, fever(s) or weight gain ENT HEENT: Denies headache(s), nasal congestion or nasal discharge Cardiovascular Cardiovascular: Denies chest pain or palpitations Respiratory/Chest Respiratory/Chest: Denies cough, excessive phlegm production or shortness of breath with exertion Gastrointestinal Gastrointestinal: Denies abdominal pain, nausea or vomiting Genitourinary Genitourinary: Denies dysuria Musculoskeletal Musculoskeletal: Denies joint pain or joint swelling Integumentary Integumentary: Denies rash or wounds Neurologic Neurologic: Denies focal weakness, numbness or tingling Psychiatric Psychiatric: Denies anxiety, auditory hallucinations, depression, homicidal ideation or suicidal ideation Vital Signs Vital Signs Vital Signs: 01/04/23 17:04 01/04/23 17:44 Temperature 98.3 F Temperature Source Temporal Pulse Rate 85 Pulse Rhythm Regular Pulse Strength Normal (2+) Respiratory Rate 16 Respiratory Effort Normal Non-Labored Respiratory Depth Normal Respiratory Pattern Normal Blood Pressure 184/49 H Blood Pressure Mean 94 Blood Pressure Source Monitor Blood Pressure Position Semi-Fowlers Blood Pressure Location Left Arm Pulse Ox 94 Oxygen Delivery Method Room Air Room Air Weight Weight: 79.549 kg Body Mass Index (BMI) 25.1 Physical Exam Const alert General Appearance: cooperative HEENT normocephalic Eyes PERRL and EOMs intact bilaterally Neck supple, no JVD and no carotid bruits Resp normal respiratory effort, normal air movement and clear to auscultation bilaterally Cardio regular rate and regular rhythm GI normal to inspection, nondistended, normoactive bowel sounds, non-tender and non-distended Extremity normal capillary refill General Extremity: Negative for edema Skin no rashes or lesions noted General Skin Exam: no breakdown Psych affect normal Appearance: appropriate Results Lab / Micro Data 01/05/23 05:37 01/05/23 05:37 Assessment & Plan Assessment/Plan (1) Debility: (2) Urinary retention: (3) Postoperative ileus: (4) Status post bilateral inguinal hernia repair: (5) Acute on chronic anemia: (6) Failure to thrive in adult: (7) Acute constipation: (8) Mild dehydration: (9) Coronary artery disease: (10) Hyperlipidemia: (11) BPH (benign prostatic hyperplasia): (12) Overactive bladder: (13) Hypothyroidism: PLAN: Plan 87 year old male with below past medical history hospitalized for weakness, postoperative ileus, urinary retention, constipation, dehydration, admitted to TCU with debility, here for rehabilitation, strengthening, prior to discharge home alone. * Debility - PT/OT. * Pain - Tylenol 1000mg q6 prn pain (1-10). * Bowel - Miralax 17gm daily, senna/colace 1 tablet bid, Magnesium citrate 300ml daily prn. * Adult immunization - Administer pneumonia vaccine, covid19 vaccine, flu vaccine as appropriate. * DVT prophylaxis - Hold, anemia. * Coronary artery disease - Coreg 3.125mg bid, aspirin 81mg daily. * Hyperlipidemia - Atorvastatin 40mg qhs. * Hypothyroidism - Levothyroxine 88mcg daily. * BPH - Finasteride 5mg daily, Tamsulosin 0.4mg daily, camacho out. * Appetite loss - Mirtazapine 15mg qhs, stable use, GDR not recommended.
[2023-01-04] MEDS: Senna/Docusate Sodium 1 Tablet PO (21:01)
[2023-01-04] MEDS: Atorvastatin Calcium 40 MG Tablet PO (21:01)
[2023-01-04] MEDS: Mirtazapine 15 MG Tablet PO (21:01)
[2023-01-05 04:39] VITALS: BP 142/66; PULSE 86; RESP 18; TEMP 37.2; O2SAT 96
[2023-01-05] MEDS: Acetaminophen 500 MG Tablet 1000 MG PO ×2 (04:40→14:50)
[2023-01-05] MEDS: Levothyroxine 88 MCG Tablet PO (05:11)
[2023-01-05 05:55] LABS: Absolute Lymphocyte Count 3.71 X10^3/uL (0.83-4.51); Absolute Neutrophil Count 1.3 X10^3/uL (2.0-7.7); Basophil# 0.02 X10^3/uL; Basophil% 0.4 % (0-1); Hematocrit 26.4 % (40-54); Hemoglobin 8.8 g/dL (13.0-16.5); Lymphocyte # 3.71 X10^3/ul (0.83-4.51); Lymphocyte % 71.1 % (19-41); Mean Corp Hgb Conc 33.3 g/dL (32-36); Mean Corpuscular Hgb 30.7 pg (27.0-32.0); Mean Platelet Vol. 9.1 fl (6.2-12.0); Monocyte# 0.09 X10^3/uL; Monocyte% 1.7 % (0-10); NRBC Flagged by Analyzer 0 % (0-5); Neutrophil # 1.29 X10^3/uL (2.7-7.7); Neutrophil % 24.7 % (47-70); POSITIVE MORPHOLOGY YES; Platelet Count 193 K/mm3 (150-450); RBC Distribution Width CV 14.5 % (11.6-14.6); RBC Distribution Width SD 48.6 fl (35.1-43.9); Red Blood Count 2.87 M/mm3 (4.6-6.2); White Blood Count 5.2 K/mm3 (4.4-11.0)
[2023-01-05 05:56] LABS: Differential Indicated SCAN CRITERIA MET
[2023-01-05 06:15] LABS: Anion Gap 7 (5-15); BUN 20 mg/dL (7-18); BUN/Creat Ratio 21.2 RATIO (10-20); Calcium,Total 7.7 mg/dL (8.5-10.1); Chloride 102 mmol/L (98-107); Creatinine, Serum 0.94 mg/dL (0.70-1.30); EST Glomerular Filtration Rate 81 mL/min (>60); Est Glom Filt Rate - Afr Amer 98 mL/min (>60); Estimated Creatinine Clearance 59.32 ml/min; Glucose 162 mg/dL (74-106); Potassium 3.4 mmol/L (3.5-5.1); Sodium Level 136 mmol/L (136-145)
[2023-01-05] MEDS: Finasteride 5 MG Tablet PO (08:39)
[2023-01-05] MEDS: Polyethylene Glycol 3350 17 GM PACKET PO (08:39)
[2023-01-05] MEDS: Aspirin 81 MG TAB.CHEW PO (08:39)
[2023-01-05] MEDS: Carvedilol 3.125 MG TABLET PO (08:39)
[2023-01-05] MEDS: Senna/Docusate Sodium 1 Tablet PO ×2 (08:40→21:46)
[2023-01-05 08:45] VITALS: BP 102/59; PULSE 83
[2023-01-05] MEDS: Tuberculin,Purif.prot.deriv. 50 TU/ML Vial 0.1 ML ID (13:20)
--- NOTE | 2023-01-05 13:43 | CASEMGMT ---
Social Work Met with patient to complete initial assessment. Introduced self and role. Verified contacts. Pt reports to having one son and 4 daughters, but could not recall the 4th dtr's name. Pt acknowledged memory deficit, why can't I remember anything. Pt unable to recall advanced directives. Pt's goal is to return home alone at [facility]. Pt confirmed DNR-CCA, no intubation. Educated to [facility] insurance and continued stay reviews. SW sat with pt at bedside assisting with food and drink requests. Pt notably tired, some discomfort, breathing heavily with each bite and keeping eyes closed most of the time. Pt expressed appreciation for the assistance and company. SW will continue to follow for DC planning. Catie Jones, NOODLE PRESS OPERATOR PROFESSIONAL SERVICES CONSULTANT
--- NOTE | 2023-01-05 15:22 | RAD_ITS ---
STUDY: X-RAY CHEST REASON FOR EXAM: Male, 87 years old. Fever TECHNIQUE: PA and lateral COMPARISON: January 02, 2023. FINDINGS: Mild right infrahilar atelectasis or infiltrate.. There is no demonstrated pleural abnormality. Normal size heart. Normal mediastinum and shreya. Normal visualized pulmonary arteries. Mildly calcified aortic arch and descending thoracic aorta. Dorsal spine and shoulders demonstrate degenerative change Normal visualized ribs, and clavicles. There is no demonstrated abnormality of the visualized soft tissue structures of the upper abdomen. RAD/Chest PA and Lateral IMPRESSION: Mild right infrahilar atelectasis or infiltrate. Electronically Signed: Deandre Taylor MD at 17:06 EDT ,
--- NOTE | 2023-01-05 15:45 | NURSING ---
Pt Temp 102.5 Oral BP 121/95 Pulse 90 Pt shivering and unable to get warm. Dr. Seymour updated N.O. 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 Start IV antibiotics as soon as Blood cultures complete. Levaquin 750 mg daily for 7 days and Flagyl 500mg Q12HR for 7 days. Orders read back.
[2023-01-05 15:51] VITALS: BP 121/95; PULSE 90; RESP 18; TEMP 39.2; O2SAT 94
[2023-01-05 16:17] LABS: Absolute Lymphocyte Count 2.96 X10^3/uL (0.83-4.51); Absolute Neutrophil Count 1.2 X10^3/uL (2.0-7.7); Basophil# 0.03 X10^3/uL; Basophil% 0.7 % (0-1); Eosinophil# 0.01 X10^3/uL; Eosinophils% 0.2 % (0-5); Hematocrit 24.8 % (40-54); Hemoglobin 8.2 g/dL (13.0-16.5); Lymphocyte # 2.96 X10^3/ul (0.83-4.51); Lymphocyte % 68.5 % (19-41); Mean Corp Hgb Conc 33.1 g/dL (32-36); Mean Corpuscular Hgb 30.5 pg (27.0-32.0); Mean Corpuscular Volume 92.2 fL (80-94); Mean Platelet Vol. 9.4 fl (6.2-12.0); Monocyte# 0.08 X10^3/uL; Monocyte% 1.9 % (0-10); NRBC Flagged by Analyzer 0 % (0-5); Neutrophil # 1.15 X10^3/uL (2.7-7.7); Neutrophil % 26.6 % (47-70); Platelet Count 211 K/mm3 (150-450); RBC Distribution Width CV 14.7 % (11.6-14.6); RBC Distribution Width SD 49.5 fl (35.1-43.9); Red Blood Count 2.69 M/mm3 (4.6-6.2); White Blood Count 4.3 K/mm3 (4.4-11.0)
[2023-01-05 16:26] LABS: Erythrocyte Sedimentation Rate 20 mm/hr (0-20)
[2023-01-05 16:32] LABS: Mucous, Urine 0 SEEN /hpf (<or=2+)
[2023-01-05 16:34] LABS: Color, Urine Yellow (Yellow); Glucose, Dipstick Normal (Normal); Ketone-Dipstick Negative (Negative); Leukocyte Esterase-Dipstick 100 /ul (Negative); Nitrite-Dipstick Negative (Negative); Occult Blood-Urine 250 /ul (Negative); Protein-Dipstick 30 mg/dl (Negative); Specific Gravity, Urine 1.015 (1.002-1.030); Urine Bilirubin Dipstick Negative (Negative); Urine Clarity Clear (Clear); Urine Urobilinogen 1 mg/dl (Normal)
--- NOTE | 2023-01-05 16:34 | RAD_ITS ---
STUDY: X-RAY - ABDOMEN/PELVIS REASON FOR EXAM: Male, 87 years old. Fever TECHNIQUE: KUB COMPARISON: January 02, 2023 FINDINGS: Normal visualized lung bases. There are multiple mildly diffusely distended air-filled small bowel loops with relative paucity of air in the colon.. There is no demonstrated free abdominal air. The visualized liver, spleen and kidneys are grossly normal in size and morphology. Normal soft tissue structures. Lumbar spine and shoulders demonstrate degenerative change RAD/Abdomen Single View IMPRESSION: Findings which may be consistent with diffuse ileus however cannot exclude evolving small bowel obstruction. There are more distended loops of small bowel on the current study when compared with previous exam Electronically Signed: Deandre Taylor MD at 17:04 EDT ,
[2023-01-05 16:39] LABS: ALB/GLOB Ratio 0.8 RATIO (0.9-2.4); AST(SGOT) 28 U/L (15-37); Alanine Aminotransfer ALT/SGPT 21 U/L (16-61); Albumin, Serum 2.6 g/dL (3.2-5.0); Alkaline Phosphatase 55 U/L (45-117); Anion Gap 5 (5-15); BUN 28 mg/dL (7-18); BUN/Creat Ratio 23.1 RATIO (10-20); Calcium,Total 7.7 mg/dL (8.5-10.1); Chloride 104 mmol/L (98-107); Creatinine, Serum 1.21 mg/dL (0.70-1.30); EST Glomerular Filtration Rate 61 mL/min (>60); Est Glom Filt Rate - Afr Amer 73 mL/min (>60); Estimated Creatinine Clearance 46.09 ml/min; Globulin 3.2 g/dL (2.2-4.2); Glucose 199 mg/dL (74-106); Potassium 3.5 mmol/L (3.5-5.1); Protein, Total 5.8 g/dL (6.4-8.2); Sodium Level 135 mmol/L (136-145)
[2023-01-05 16:41] LABS: Lactic Acid 1.7 mmol/L (0.4-1.9)
[2023-01-05 16:51] LABS: Bacteria 2+ /hpf (None Seen); Red Blood Cells-Urine 0-5 SEEN /hpf (0-5); Squamous Epithelial Cells - UA 0-5 SEEN /hpf (0-5); White Blood Cells 5-10 SEEN /hpf (0-5)
[2023-01-05] MEDS: metroNIDAZOLE 500 MG/100 ML BAG 100 MG IV ×2 (16:57→21:46)
[2023-01-05] MEDS: 0.9% Saline Lock 10 ML Syringe IV (16:58)
[2023-01-05 17:05] VITALS: BP 96/57; PULSE 82
[2023-01-05] MEDS: Metoclopramide 10 MG/2 ML Vial IV (18:19)
[2023-01-05] MEDS: levoFLOXacin IV 750 MG/150 ML BAG 100 MG IV (18:23)
[2023-01-05] MEDS: Tamsulosin HCl 0.4 MG Capsule PO (18:30)
[2023-01-05] MEDS: Lactated Ringers 1,000 ML 75 ML IV (20:13)
[2023-01-05] MEDS: Atorvastatin Calcium 40 MG Tablet PO (21:46)
[2023-01-05] MEDS: Mirtazapine 15 MG Tablet PO (21:46)
[2023-01-06] MEDS: 0.9% Saline Lock 10 ML Syringe IV ×4 (00:41→18:01)
[2023-01-06] MEDS: Metoclopramide 10 MG/2 ML Vial IV ×4 (00:41→18:00)
[2023-01-06 05:00] VITALS: BP 116/65; PULSE 85; RESP 16; TEMP 37.6; O2SAT 94
[2023-01-06] MEDS: Levothyroxine 88 MCG Tablet PO (05:55)
--- NOTE | 2023-01-06 08:36 | NURSING ---
Called [facility] to get precert for Ct of ABD with contrast to rule out small bowel obstruction. No precert is required. Call reference# [id number]
[2023-01-06] MEDS: Carvedilol 3.125 MG TABLET PO ×2 (08:45→17:47)
[2023-01-06] MEDS: Aspirin 81 MG TAB.CHEW PO (08:46)
[2023-01-06] MEDS: metroNIDAZOLE 500 MG/100 ML BAG 100 MG IV ×2 (10:29→22:46)
[2023-01-06] MEDS: Lactated Ringers 1,000 ML 75 ML IV (10:30)
[2023-01-06] MEDS: Polyethylene Glycol 3350 17 GM PACKET PO (10:33)
[2023-01-06] MEDS: Finasteride 5 MG Tablet PO (10:33)
[2023-01-06] MEDS: Senna/Docusate Sodium 1 Tablet PO ×2 (10:33→22:50)
[2023-01-06] MEDS: levoFLOXacin IV 750 MG/150 ML BAG 100 MG IV (11:45)
--- NOTE | 2023-01-06 12:51 | NURSING ---
Printing Machinist Note; Activity Asset: Elias Lopez is independent in his choice of daily activities. At this time he has stated he would prefer in room activities. Father will come and give him communion and his family will visit. When not in therapy he will read the newspaper, watch tv and rest. He will welcome visits from the communications instructor as well as Father. Staff will continue to remind him of daily activities and respect his right to say no.
--- NOTE | 2023-01-06 14:26 | NS ---
MST score = 1. Res sleeping soundly - left written copy of first choice/daily specials menu w/ instructions on how to order
[2023-01-06 14:46] VITALS: BP 103/53; PULSE 78; RESP 14; TEMP 36.9; O2SAT 96
--- NOTE | 2023-01-06 14:57 | PCM.PN.DRR ---
Documented by User: Willi Menon 01/06/23 15:23 TCU RX Drug Regimen Review Subjective/Objective Subjective/Objective: Subjective: 87 year old male with below past medical history hospitalized for weakness, postoperative ileus, urinary retention, constipation, dehydration, admitted to TCU with debility, here for rehabilitation, strengthening, prior to discharge home alone. Objective: Allergies Penicillins Allergy (Verified 12/30/22 20:57) Hives tree and shrub pollen Allergy (Verified 12/30/22 20:57) Other lisinopril Adverse Reaction (Mild, Verified 12/30/22 20:57) cough Current Medications Generic Name Dose Route Start Last Admin Trade Name Freq PRN Reason Stop Dose Admin Acetaminophen 1,000 mg 01/04/23 21:30 01/05/23 14:50 Acetaminophen 500 Mg Tablet PO 1,000 mg Q6H PRN PRN Administration Pain Score 1-10 Aspirin 81 mg 01/05/23 08:00 01/06/23 08:46 Aspirin 81 Mg Tab.Chew PO 81 mg BREAKFAST MICHEAL Administration Atorvastatin Calcium 40 mg 01/04/23 22:00 01/05/23 21:46 Atorvastatin Calcium 40 Mg Tablet PO 40 mg QHS MICHAEL Administration Carvedilol 3.125 mg 01/05/23 08:00 01/06/23 08:45 Carvedilol 3.125 Mg Tablet PO 3.125 mg BIDCM MICHAEL Administration Protocol Finasteride 5 mg 01/05/23 10:00 01/06/23 10:33 Finasteride 5 Mg Tablet PO 5 mg DAILY MICHAEL Administration Metronidazole 500 mg in 100 mls @ 100 mls/hr 01/05/23 15:35 01/06/23 11:30 Flagyl IV 01/12/23 15:36 Infused BID MICHAEL Infusion Levofloxacin 750 mg in 150 mls @ 100 mls/hr 01/05/23 15:35 01/06/23 13:18 Levaquin Iv IV 01/12/23 15:36 Infused Q24 MICHAEL Infusion Lactated Ringer's 1,000 mls @ 75 mls/hr 01/05/23 15:30 01/06/23 10:30 IV 75 mls/hr .[id number] MICHAEL Administration Sodium Chloride 250 mls @ 15 mls/hr 01/05/23 16:35 IV .[id number] PRN Additional IVPB Infusion Sodium Chloride 250 mls @ 15 mls/hr 01/05/23 16:35 IV .[id number] PRN Saline Flush Levothyroxine Sodium 88 mcg 01/05/23 06:00 01/06/23 05:55 Levothyroxine 88 Mcg Tablet PO 88 mcg DAILY@0600 MICHAEL Administration Magnesium Citrate 300 ml 01/04/23 21:30 Magnesium Citrate 300 Ml PO DAILY PRN PRN Constipation Metoclopramide HCl 10 mg 01/05/23 18:00 01/06/23 12:09 Metoclopramide 10 Mg/2 Ml Vial IV 10 mg Q6 MICHAEL Administration Mirtazapine 15 mg 01/04/23 22:00 01/05/23 21:46 Mirtazapine 15 Mg Tablet PO 15 mg QHS MICHAEL Administration Polyethylene Glycol 17 gm 01/05/23 10:00 01/06/23 10:33 Polyethylene Glycol 3350 17 Gm Packet PO 17 gm DAILY MICHAEL Administration Senna/Docusate Sodium 1 tablet 01/04/23 22:00 01/06/23 10:33 Senna/Docusate Sodium 1 Tablet PO 1 tablet BID MICHAEL Administration Sodium Chloride 10 - 40 ml 01/05/23 16:35 01/06/23 12:10 0.9% Saline Lock 10 Ml Syringe IV 10 ml UD PRN Administration SALINE FLUSH Tamsulosin HCl 0.4 mg 01/04/23 17:30 01/05/23 18:30 Tamsulosin Hcl 0.4 Mg Capsule PO 0.4 mg DAILY@1730 MICHAEL Administration Tuberculin PPD 0.1 ml 01/12/23 10:00 Tuberculin,Purif.Prot.Deriv. 50 Tu/Ml Vial ID 01/12/23 10:01 X1 ONE Problem List (Updated 01/05/23 @ 00:01 by Background Daemon) Hypothyroidism (Acute) Overactive bladder (Acute) BPH (benign prostatic hyperplasia) (Acute) Hyperlipidemia (Acute) Coronary artery disease (Acute) Status post bilateral inguinal hernia repair (Acute) Debility (Acute) Failure to thrive in adult (Acute) Vital Signs Temp Pulse Resp BP Pulse Ox O2 Del Method 98.4 F 78 14 103/53 L 96 Room Air 01/06/23 14:46 01/06/23 14:46 01/06/23 14:46 01/06/23 14:46 01/06/23 14:46 01/06/23 14:46 Oxygen Delivery Method Room Air Weight: 79.549 kg Body Mass Index (BMI) 25.1 Sodium 135 mmol/L (136-145) L 01/05/23 15:58 Potassium 3.5 mmol/L (3.5-5.1) 01/05/23 15:58 Chloride 104 mmol/L (98-107) 01/05/23 15:58 Carbon Dioxide 26.0 mmol/L (21.0-32.0) 01/05/23 15:58 Anion Gap 5 (5-15) 01/05/23 15:58 BUN 28 mg/dL (7-18) H 01/05/23 15:58 Creatinine 1.21 mg/dL (0.70-1.30) 01/05/23 15:58 Est GFR (MDRD) Af Amer 73 mL/min (>60) 01/05/23 15:58 Est GFR (MDRD) Non-Af 61 mL/min (>60) 01/05/23 15:58 BUN/Creatinine Ratio 23.1 RATIO (10-20) H 01/05/23 15:58 Glucose 199 mg/dL (74-106) H 01/05/23 15:58 Assessment/Plan: 1. Pain: acetaminophen 1000 mg PO Q6H PRN pain. The patient has used 2 doses of PRN acetaminophen so far this admission. Please continue to monitor pain levels, PRN medication usage, and LFTs (AST/ALT = 28/21 U/L on 01/05/23). 2. Bowel: polyethylene glycol 17 grams PO daily, senna/docusate 1 tablet PO BID, magnesium citrate 300 mL PO daily PRN constipation, metoclopramide 10 mg IV Q6H. The patient has not used any doses of PRN magnesium citrate so far this admission. The patient's last bowel movement was 01/04/23. Please continue to monitor for diarrhea, constipation, renal function (serum creatinine = 1.21 mg/dL with creatinine clearance ~46 mL/min on 01/05/23), extrapyramidal symptoms, drowsiness and fatigue. 3. Bowel obstruction/abdominal pain/concern for abdominal infection: levofloxacin 750 mg IV Q24H, metronidazole 500 mg IV BID both through 01/12/23. Please continue to monitor for s/s of infection/resolution of infection including fever (recent temps = 98.2-102.5 F), chills, white blood cell count (WBC = 4.3 K/mm3 on 01/05/23), abdominal pain, for diarrhea that could indicate clostridium difficile infection, neuropsychiatric disturbances, LFTs (AST/ALT = 28/21 U/L on 01/05/23), renal function (serum creatinine = 1.21 mg/dL with creatinine clearance ~46 mL/min on 01/05/23), tendonopathy,and for peripheral neuropathy. 4. Coronary artery disease/hyperlipidemia: carvedilol 3.125 mg PO BID, aspirin 81 mg PO daily, atorvastatin 40 mg PO QHS. Please continue to monitor for chest pain, blood pressures (recent range = 96-184/53-95 mmHg), heart rates (recent range = 67-90 beats/min), for fatigue, for s/s of bleeding, hemoglobin levels (Hgb = 8.2 g/dL on 01/05/23), platelet counts (PLT = 211 K/mm3 on 01/05/23), for GI distress that could indicate a GI ulcer, LFTs (AST/ALT = 28/21 U/L on 01/05/23), lipid levels (cholesterol = 114 mg/dL with LDL = 54 mg/dL on 05/03/2016), and for myopathies. If the patient experiences GI distress with aspirin administration please consider administering with food. Please consider ordering repeat lipid levels if clinically indicated as patient does not have documented lipid levels in the past several years. 5. Hypothyroidism: levothyroxine 88 mcg PO daily. Please continue to monitor for s/s of hypo/hyperthyroidism and thyroid hormone levels (TSH = 1.01 uIU/mL on 01/01/23 with T4 = 0.81 ng/dL on 11/13/17). 6. BPH: finasteride 5 mg PO daily, tamsulosin 0.4 mg PO daily. Please continue to monitor for urinary retention, urine stream, blood pressures (recent range = 96-184/53-95 mmHg), for s/s of orthostasis, and dizziness. Assessment/Plan for indications treated with psychotropic medications: 1. Appetite loss: mirtazapine 15 mg PO QHS. Please see provider note regarding stable long-term chronic therapy GDR not recommended. Please continue to monitor appetite, for SI, for sedation, lipid levels (cholesterol = 114 mg/dL with LDL = 54 mg/dL on 05/03/2016), for s/s of serotonin syndrome, and weights (recent range 78-79.5 kg appears stable). Medical chart and medication regimen reviewed. The following medication irregularities or issues were identified: 1. Coronary artery disease/hyperlipidemia: carvedilol 3.125 mg PO BID, aspirin 81 mg PO daily, atorvastatin 40 mg PO QHS. Please consider ordering repeat lipid levels if clinically indicated as patient does not have documented lipid levels in the past several years. Date Date of Note:: 01/06/23 Documented by User: Dr. Andrea Seymour MD 01/06/23 18:06 TCU RX Drug Regimen Review Provider Comments Provider responsibility Provider Comments to Recommendations by Pharmacy: Agree
--- NOTE | 2023-01-06 16:39 | NURSING ---
dr morris udpated on ct scan, would like pt to be given mag citrate 300ml x1. pt has prn order.
[2023-01-06] MEDS: Tamsulosin HCl 0.4 MG Capsule PO (17:46)
[2023-01-06] MEDS: Mirtazapine 15 MG Tablet PO (22:50)
[2023-01-06] MEDS: Atorvastatin Calcium 40 MG Tablet PO (22:50)
[2023-01-07] MEDS: Metoclopramide 10 MG/2 ML Vial IV ×2 (00:57→06:28)
[2023-01-07] MEDS: Lactated Ringers 1,000 ML 75 ML IV (00:58)
[2023-01-07] MEDS: 0.9% Saline Lock 10 ML Syringe IV ×2 (01:21→06:23)
[2023-01-07] MEDS: Levothyroxine 88 MCG Tablet PO (05:30)
--- NOTE | 2023-01-07 06:13 | NURSING ---
Addendum entered by Mayuri Dillard 01/07/23 06:18: Contacted regarding penicillin allergy requesting clarification. New order received to D/c Merrem and Resume IV Levaquin 750mg Q24hrs, start Cefepime 2gm IV Q8H x7 days start first dose now and notify pharmacy Dr. Seymour aware of penicillin allergy. Orders repeated back. Original Note: called, discussed continued lethargy, received new orders: 1. stop levaquin 2.stop flagyl 3. stop lactacte ringers 4.start meropenem 1gm IV Q8H x7 days start now dx: pne/colitis 5.start Normal saline IV @75cc/hr orders repeated back
[2023-01-07] MEDS: 0.9% Normal Saline (1000mL) 1,000 ML 75 ML IV ×2 (06:24→20:02)
[2023-01-07] MEDS: Cefepime HCl 2 GM in 0.9% Normal Saline (100mL MB+) 100 ML IV ×2 (06:32→14:13)
[2023-01-07 09:33] VITALS: BP 109/67; PULSE 82; RESP 17; TEMP 37.4; O2SAT 94
[2023-01-07] MEDS: Aspirin 81 MG TAB.CHEW PO (09:37)
[2023-01-07] MEDS: Carvedilol 3.125 MG TABLET PO ×2 (09:37→16:12)
[2023-01-07] MEDS: Finasteride 5 MG Tablet PO (09:38)
[2023-01-07] MEDS: Senna/Docusate Sodium 1 Tablet PO ×2 (09:38→22:02)
[2023-01-07] MEDS: Polyethylene Glycol 3350 17 GM PACKET PO (09:38)
[2023-01-07] MEDS: levoFLOXacin IV 750 MG/150 ML BAG 100 MG IV (09:45)
--- NOTE | 2023-01-07 11:51 | NURSING ---
Call placed to Dr. Seymour to review urine culture results. No new orders at this time.
[2023-01-07 16:13] VITALS: BP 109/53; PULSE 77
[2023-01-07] MEDS: Tamsulosin HCl 0.4 MG Capsule PO (16:13)
--- NOTE | 2023-01-07 21:06 | PCM.RX.CS ---
Consult Antibiotic Management Pharmacy has been consulted to manage selected antiobiotic: Gentamicin Type of Intervention Type of Consult: New start Labs Labs: Sodium 135 mmol/L (136-145) L 01/05/23 15:58 Potassium 3.5 mmol/L (3.5-5.1) 01/05/23 15:58 Chloride 104 mmol/L (98-107) 01/05/23 15:58 Carbon Dioxide 26.0 mmol/L (21.0-32.0) 01/05/23 15:58 Anion Gap 5 (5-15) 01/05/23 15:58 BUN 28 mg/dL (7-18) H 01/05/23 15:58 Creatinine 1.21 mg/dL (0.70-1.30) 01/05/23 15:58 Est GFR (MDRD) Af Amer 73 mL/min (>60) 01/05/23 15:58 Est GFR (MDRD) Non-Af 61 mL/min (>60) 01/05/23 15:58 BUN/Creatinine Ratio 23.1 RATIO (10-20) H 01/05/23 15:58 Glucose 199 mg/dL (74-106) H 01/05/23 15:58 Microbiology Microbiology: Microbiology 01/05/23 16:15 Urine, Catheterized Urine Culture - Final Pseudomonas putida 01/06/23 07:55 Mucosa - Nasopharyngeal Respiratory Panel (PCR) - Final 01/06/23 06:00 Nasal Secretion SARS-CoV-2 Antigen (Rapid) - Final Pharmacy Plan for Drug Dosing Pharmacy Plan for Drug Dosing: Pharmacy Service will continue to monitor and adjust dosing as required. CONVENTIONAL DOSING 150MG LOADING DOSE AND 110MG Q12H Follow-Up Labs Follow-Up Labs: Trough: Gentamicin Date/Time Labs Ordered Labs to be done on [date and time ordered]: PK 01/08 @ 2029 TR 01/09 @ 6658
[2023-01-07] MEDS: Mirtazapine 15 MG Tablet PO (22:01)
[2023-01-07] MEDS: Atorvastatin Calcium 40 MG Tablet PO (22:02)
[2023-01-08] MEDS: Metoclopramide 10 MG/2 ML Vial IV ×2 (00:08→06:07)
[2023-01-08] MEDS: Levothyroxine 88 MCG Tablet PO (04:59)
[2023-01-08] MEDS: 0.9% Normal Saline (1000mL) 1,000 ML 75 ML IV ×2 (08:22→22:48)
[2023-01-08 08:24] VITALS: BP 94/51; PULSE 83; RESP 17; TEMP 36.9; O2SAT 96
[2023-01-08] MEDS: Aspirin 81 MG TAB.CHEW PO (08:31)
[2023-01-08] MEDS: Finasteride 5 MG Tablet PO (08:32)
[2023-01-08] MEDS: levoFLOXacin IV 750 MG/150 ML BAG 100 MG IV (11:35)
[2023-01-08 17:48] VITALS: BP 118/60; PULSE 79
[2023-01-08] MEDS: Tamsulosin HCl 0.4 MG Capsule PO (17:50)
[2023-01-08] MEDS: Carvedilol 3.125 MG TABLET PO (17:50)
[2023-01-08] MEDS: Atorvastatin Calcium 40 MG Tablet PO (21:16)
[2023-01-08] MEDS: Senna/Docusate Sodium 1 Tablet PO (21:16)
[2023-01-08] MEDS: Mirtazapine 15 MG Tablet PO (21:16)
--- NOTE | 2023-01-08 21:20 | NURSING ---
Spoke w/ Dr. Seymour via phone to question need for scheduled IV Reglan. Report received per this nurse that pt denies any c/o nausea. New order received and read back to dc IV Reglan.
[2023-01-08] MEDS: Miconazole Nitrate 43 GM Bottle 1 APPLIC TOPICAL (22:48)
[2023-01-09] MEDS: Menthol/Lanolin/Calamine/Znox 113 GM Tube 1 APPLIC TOPICAL ×3 (01:31→22:08)
[2023-01-09] MEDS: Levothyroxine 88 MCG Tablet PO (06:08)
[2023-01-09 08:02] LABS: Gentamicin, Conv. Trough 1.8 ug/mL (<2.0)
[2023-01-09] MEDS: Finasteride 5 MG Tablet PO (08:47)
[2023-01-09] MEDS: Polyethylene Glycol 3350 17 GM PACKET PO (08:47)
[2023-01-09] MEDS: Aspirin 81 MG TAB.CHEW PO (08:47)
[2023-01-09] MEDS: levoFLOXacin 750 MG Tablet PO (08:47)
[2023-01-09] MEDS: Carvedilol 3.125 MG TABLET PO ×2 (08:47→17:06)
[2023-01-09] MEDS: Senna/Docusate Sodium 1 Tablet PO ×2 (08:47→22:12)
[2023-01-09] MEDS: Miconazole Nitrate 43 GM Bottle 1 APPLIC TOPICAL ×2 (08:48→22:09)
[2023-01-09 08:55] VITALS: BP 126/68; PULSE 69
--- NOTE | 2023-01-09 10:41 | PCM.RX.CS ---
Consult Antibiotic Management Pharmacy has been consulted to manage selected antiobiotic: Gentamicin Type of Intervention Type of Consult: Follow-up Suspected Infection Suspected Infection: Other Prior Doses of Antibiotics Prior Doses of Antibiotics Received/Current Regimen: 01/07/23 @ 2001 150MG of Gentamicin 01/08 0831 110mg 01/08 2101 110mg Labs Labs: Sodium 135 mmol/L (136-145) L 01/05/23 15:58 Potassium 3.5 mmol/L (3.5-5.1) 01/05/23 15:58 Chloride 104 mmol/L (98-107) 01/05/23 15:58 Carbon Dioxide 26.0 mmol/L (21.0-32.0) 01/05/23 15:58 Anion Gap 5 (5-15) 01/05/23 15:58 BUN 28 mg/dL (7-18) H 01/05/23 15:58 Creatinine 1.21 mg/dL (0.70-1.30) 01/05/23 15:58 Est GFR (MDRD) Af Amer 73 mL/min (>60) 01/05/23 15:58 Est GFR (MDRD) Non-Af 61 mL/min (>60) 01/05/23 15:58 BUN/Creatinine Ratio 23.1 RATIO (10-20) H 01/05/23 15:58 Glucose 199 mg/dL (74-106) H 01/05/23 15:58 Gentamicin Peak 8.1 ug/mL (4.0-8.0) H 01/08/23 21:47 Gentamicin Trough 1.8 ug/mL (<2.0) 01/09/23 07:35 Microbiology Microbiology: Microbiology 01/09/23 06:00 Nasal Secretion SARS-CoV-2 Antigen (Rapid) - Final 01/05/23 16:03 Blood Culture (Wb) - Right Forearm Blood Culture - Preliminary No growth in 48 hours. 01/05/23 15:58 Blood Culture (Wb) - Anticubital Right Blood Culture - Preliminary No growth in 48 hours. 01/05/23 16:15 Urine, Catheterized Urine Culture - Final Pseudomonas putida 01/06/23 07:55 Mucosa - Nasopharyngeal Respiratory Panel (PCR) - Final 01/06/23 06:00 Nasal Secretion SARS-CoV-2 Antigen (Rapid) - Final Dosing Weight Weight used for dosin kg Estimated Creatinine Clearance Estimated Creatinine Clearance: 48 Goal Trough Goal Trough: Other Pharmacy Plan for Drug Dosing Pharmacy Plan for Drug Dosing: Due to peak of 8.1 and trough 1.8 decreased dose to 80mg daily Pharmacy Service will continue to monitor and adjust dosing as required. Follow-Up Labs Follow-Up Labs: Peak: Gentamicin Date/Time Labs Ordered Labs to be done on [date and time ordered]: peak 01/10 @ 2130 trough 01/11 @ 2030
[2023-01-09] MEDS: 0.9% Normal Saline (1000mL) 1,000 ML 75 ML IV (11:49)
[2023-01-09 14:21] VITALS: BP 110/54; PULSE 70; RESP 16; TEMP 36.8; O2SAT 95
[2023-01-09] MEDS: Tamsulosin HCl 0.4 MG Capsule PO (17:06)
[2023-01-09 17:08] VITALS: BP 122/65; PULSE 68
[2023-01-09] MEDS: GENTAMICIN IVPB (22:06)
[2023-01-09] MEDS: WATER IVPB (22:06)
[2023-01-09] MEDS: DEXTROSE 5% IVPB (22:06)
[2023-01-09] MEDS: Atorvastatin Calcium 40 MG Tablet PO (22:11)
[2023-01-09] MEDS: Mirtazapine 15 MG Tablet PO (22:11)
[2023-01-10] MEDS: 0.9% Normal Saline (1000mL) 1,000 ML 75 ML IV ×2 (01:57→15:19)
[2023-01-10] MEDS: levoFLOXacin 750 MG Tablet PO (05:19)
[2023-01-10] MEDS: Levothyroxine 88 MCG Tablet PO (05:20)
[2023-01-10 09:05] VITALS: BP 130/71; PULSE 84; RESP 17; TEMP 37.2; O2SAT 96
[2023-01-10] MEDS: Aspirin 81 MG TAB.CHEW PO (09:08)
[2023-01-10] MEDS: Carvedilol 3.125 MG TABLET PO ×2 (09:08→18:12)
[2023-01-10] MEDS: Miconazole Nitrate 43 GM Bottle 1 APPLIC TOPICAL ×2 (09:09→22:20)
[2023-01-10] MEDS: Menthol/Lanolin/Calamine/Znox 113 GM Tube 1 APPLIC TOPICAL ×3 (09:09→22:20)
[2023-01-10] MEDS: Senna/Docusate Sodium 1 Tablet PO ×2 (09:10→22:22)
[2023-01-10] MEDS: Finasteride 5 MG Tablet PO (09:10)
[2023-01-10 11:01] VITALS: BMI 24.6
[2023-01-10 18:08] VITALS: BP 131/69; PULSE 85
[2023-01-10] MEDS: Tamsulosin HCl 0.4 MG Capsule PO (18:13)
[2023-01-10] MEDS: DEXTROSE 5% IVPB (22:19)
[2023-01-10] MEDS: WATER IVPB (22:19)
[2023-01-10] MEDS: GENTAMICIN IVPB (22:19)
[2023-01-10] MEDS: Atorvastatin Calcium 40 MG Tablet PO (22:21)
[2023-01-10] MEDS: Mirtazapine 15 MG Tablet PO (22:22)
[2023-01-10 22:31] VITALS: PULSE 83; RESP 18; O2SAT 94
[2023-01-11] MEDS: 0.9% Normal Saline (1000mL) 1,000 ML 75 ML IV ×2 (02:10→16:13)
[2023-01-11] MEDS: Levothyroxine 88 MCG Tablet PO (05:31)
[2023-01-11] MEDS: levoFLOXacin 750 MG Tablet PO (05:31)
--- NOTE | 2023-01-11 08:12 | PCM.RX.CS ---
Consult Antibiotic Management Pharmacy has been consulted to manage selected antiobiotic: Gentamicin Type of Intervention Type of Consult: Follow-up Suspected Infection Suspected Infection: Other Prior Doses of Antibiotics Prior Doses of Antibiotics Received/Current Regimen: On 80mg iv daily. Labs Labs: Sodium 135 mmol/L (136-145) L 01/05/23 15:58 Potassium 3.5 mmol/L (3.5-5.1) 01/05/23 15:58 Chloride 104 mmol/L (98-107) 01/05/23 15:58 Carbon Dioxide 26.0 mmol/L (21.0-32.0) 01/05/23 15:58 Anion Gap 5 (5-15) 01/05/23 15:58 BUN 28 mg/dL (7-18) H 01/05/23 15:58 Creatinine 1.21 mg/dL (0.70-1.30) 01/05/23 15:58 Est GFR (MDRD) Af Amer 73 mL/min (>60) 01/05/23 15:58 Est GFR (MDRD) Non-Af 61 mL/min (>60) 01/05/23 15:58 BUN/Creatinine Ratio 23.1 RATIO (10-20) H 01/05/23 15:58 Glucose 199 mg/dL (74-106) H 01/05/23 15:58 Gentamicin Peak 0.4 ug/mL (4.0-8.0) L 01/10/23 21:08 Gentamicin Trough 1.8 ug/mL (<2.0) 01/09/23 07:35 Microbiology Microbiology: Microbiology 01/05/23 15:58 Blood Culture (Wb) - Anticubital Right Blood Culture - Final No growth in 5 days. 01/05/23 16:03 Blood Culture (Wb) - Right Forearm Blood Culture - Final No growth in 5 days. 01/09/23 06:00 Nasal Secretion SARS-CoV-2 Antigen (Rapid) - Final 01/05/23 16:15 Urine, Catheterized Urine Culture - Final Pseudomonas putida 01/06/23 07:55 Mucosa - Nasopharyngeal Respiratory Panel (PCR) - Final 01/06/23 06:00 Nasal Secretion SARS-CoV-2 Antigen (Rapid) - Final Dosing Weight Weight used for dosin kg Estimated Creatinine Clearance Estimated Creatinine Clearance: 48ml/min Goal Trough Goal Trough: Other (<1.0) Pharmacy Plan for Drug Dosing Pharmacy Plan for Drug Dosing: No new Cr today. Labs of peak 30 min after 3rd dose today and trough tomorrow 30 min prior to 4th dose have been ordered. Pharmacy Service will continue to monitor and adjust dosing as required. Follow-Up Labs Follow-Up Labs: Trough: Gentamicin (10.26.23 @2030 before 2100 dose) and Trough: Other (Peak 10.25.23 @2130 30 min after dose)
--- NOTE | 2023-01-11 08:50 | NURSING ---
Web Support Engineer Note; MDS Complete
[2023-01-11 08:51] LABS: Hematocrit 23.7 % (40-54); Hemoglobin 7.4 g/dL (13.0-16.5)
[2023-01-11] MEDS: Carvedilol 3.125 MG TABLET PO ×2 (08:54→17:51)
[2023-01-11] MEDS: Aspirin 81 MG TAB.CHEW PO (08:54)
[2023-01-11] MEDS: Menthol/Lanolin/Calamine/Znox 113 GM Tube 1 APPLIC TOPICAL ×4 (08:54→22:42)
[2023-01-11] MEDS: Miconazole Nitrate 43 GM Bottle 1 APPLIC TOPICAL ×2 (08:55→22:43)
[2023-01-11] MEDS: Polyethylene Glycol 3350 17 GM PACKET PO (08:55)
[2023-01-11] MEDS: Finasteride 5 MG Tablet PO (08:56)
[2023-01-11] MEDS: Senna/Docusate Sodium 1 Tablet PO ×2 (08:56→22:43)
[2023-01-11 09:02] VITALS: BP 116/56; PULSE 87
--- NOTE | 2023-01-11 13:03 | CASEMGMT ---
Social Work IDT met with patient, son and DIL for care plan meeting. Discussed patient's progress in PT/OT/ST/SN. Educated to [facility] insurance with [facility] 01/11 and continued stay is not guaranteed with each review. Pt lives at home alone. Currently, IDT is concerned with return home alone, but pt very confused and disoriented. Pt is on IV ATB. Son agrees pt cannot return home at this time. SW offered ongoing assistance with DC planning. Catie Jones, WET ROASTER DIETARY AID
--- NOTE | 2023-01-11 14:48 | CASEMGMT ---
Social Work BIMS (12/02) and PHQ-9 (03/15) completed for MDS assessment. Pt limited with responses but per observation, pt remains in that withdrawn, tired, lack of energy state. Pt keeps eye closed throughout assessment, breathes deeply as if he is in pain. Per family this is change from his baseline. Although pt was not a heavy eater prior, the lack of appetite during the stay is of concern. Pt does eat when fed and prompted, but no initiation to eat on his own. SW will continue to monitor. Catie Jones, GUN STOCK CHECKER [employer]I M[employer] TICKET SELLER
[2023-01-11] MEDS: Acetaminophen 500 MG Tablet 1000 MG PO (15:30)
[2023-01-11] MEDS: Magnesium Citrate 300 ML PO (15:30)
--- NOTE | 2023-01-11 15:45 | NURSING ---
Patient's last bowel movement was reported as 01/07/23. Patient was given mag citrate.
[2023-01-11 16:00] VITALS: BP 149/62; PULSE 72; RESP 16; TEMP 37.2; O2SAT 97
[2023-01-11 17:50] VITALS: BP 108/65; PULSE 84
[2023-01-11] MEDS: Tamsulosin HCl 0.4 MG Capsule PO (17:51)
--- NOTE | 2023-01-11 18:54 | NURSING ---
Dr. Seymour updated on pt's HGB of 7.4 Received order for Ferrex 150mg daily, Type and cross Transfuse 2 units of PRBC with 20mg of Lasix in between units on 01/12/23. Will need to call transfusion center in AM. Recheck H&H 24hrs post transfusion. Family updated.
[2023-01-11] MEDS: Atorvastatin Calcium 40 MG Tablet PO (22:42)
[2023-01-11] MEDS: Mirtazapine 15 MG Tablet PO (22:43)
[2023-01-11] MEDS: WATER IVPB (23:16)
[2023-01-11] MEDS: DEXTROSE 5% IVPB (23:16)
[2023-01-11] MEDS: GENTAMICIN IVPB (23:16)
[2023-01-12] MEDS: Levothyroxine 88 MCG Tablet PO (06:03)
[2023-01-12] MEDS: levoFLOXacin 750 MG Tablet PO (06:04)
[2023-01-12 06:25] LABS: Absolute Lymphocyte Count 3.63 X10^3/uL (0.83-4.51); Absolute Neutrophil Count 0.6 X10^3/uL (2.0-7.7); Basophil# 0.01 X10^3/uL; Basophil% 0.2 % (0-1); Eosinophil# 0.09 X10^3/uL; Eosinophils% 2.1 % (0-5); Hematocrit 23.2 % (40-54); Hemoglobin 7.3 g/dL (13.0-16.5); Lymphocyte # 3.63 X10^3/ul (0.83-4.51); Lymphocyte % 83.3 % (19-41); Mean Corp Hgb Conc 31.5 g/dL (32-36); Mean Corpuscular Hgb 30.2 pg (27.0-32.0); Mean Corpuscular Volume 95.9 fL (80-94); Monocyte# 0.04 X10^3/uL; Monocyte% 0.9 % (0-10); NRBC Flagged by Analyzer 0 % (0-5); Neutrophil # 0.58 X10^3/uL (2.7-7.7); Neutrophil % 13.3 % (47-70); POSITIVE DIFFERENTIAL YES; Platelet Count 214 K/mm3 (150-450); RBC Distribution Width CV 14.9 % (11.6-14.6); RBC Distribution Width SD 51.9 fl (35.1-43.9); Red Blood Count 2.42 M/mm3 (4.6-6.2); White Blood Count 4.4 K/mm3 (4.4-11.0)
[2023-01-12 06:42] LABS: Anion Gap 3 (5-15); BUN 18 mg/dL (7-18); BUN/Creat Ratio 20.5 RATIO (10-20); Calcium,Total 7.6 mg/dL (8.5-10.1); Chloride 110 mmol/L (98-107); Creatinine, Serum 0.88 mg/dL (0.70-1.30); EST Glomerular Filtration Rate 88 mL/min (>60); Est Glom Filt Rate - Afr Amer 106 mL/min (>60); Estimated Creatinine Clearance 63.37 ml/min; Glucose 126 mg/dL (74-106); Potassium 4.1 mmol/L (3.5-5.1); Sodium Level 141 mmol/L (136-145)
[2023-01-12 06:44] LABS: Differential Indicated SCAN CRITERIA MET
[2023-01-12 08:55] VITALS: BP 114/56; PULSE 84
[2023-01-12] MEDS: Carvedilol 3.125 MG TABLET PO ×2 (08:55→16:10)
[2023-01-12] MEDS: Aspirin 81 MG TAB.CHEW PO (08:55)
[2023-01-12 09:01] LABS: Differential Comment SCANNED
[2023-01-12 16:00] VITALS: BP 124/67; PULSE 65; RESP 18; TEMP 36.5; O2SAT 98
[2023-01-12] MEDS: Polyethylene Glycol 3350 17 GM PACKET PO (16:09)
[2023-01-12] MEDS: Finasteride 5 MG Tablet PO (16:09)
[2023-01-12] MEDS: Tamsulosin HCl 0.4 MG Capsule PO (16:09)
[2023-01-12] MEDS: Iron Polysaccharide Complex 150 MG CAPSULE PO (16:09)
[2023-01-12] MEDS: Tuberculin,Purif.prot.deriv. 50 TU/ML Vial 0.1 ML ID (16:14)
[2023-01-12] MEDS: Atorvastatin Calcium 40 MG Tablet PO (21:02)
[2023-01-12] MEDS: Mirtazapine 15 MG Tablet PO (21:02)
[2023-01-12] MEDS: Menthol/Lanolin/Calamine/Znox 113 GM Tube 1 APPLIC TOPICAL (21:03)
[2023-01-12] MEDS: Senna/Docusate Sodium 1 Tablet PO (21:03)
[2023-01-12] MEDS: Miconazole Nitrate 43 GM Bottle 1 APPLIC TOPICAL (21:04)
[2023-01-12] MEDS: WATER IVPB (21:27)
[2023-01-12] MEDS: 0.9% Saline Lock 10 ML Syringe IV (21:27)
[2023-01-12] MEDS: DEXTROSE 5% IVPB (21:27)
[2023-01-12] MEDS: GENTAMICIN IVPB (21:27)
[2023-01-12 22:00] VITALS: PULSE 71; RESP 16; O2SAT 95
--- NOTE | 2023-01-13 00:10 | PCM.RX.CS ---
Consult Antibiotic Management Pharmacy has been consulted to manage selected antiobiotic: Gentamicin Type of Intervention Type of Consult: Follow-up Labs Labs: Sodium 141 mmol/L (136-145) 01/12/23 06:01 Potassium 4.1 mmol/L (3.5-5.1) 01/12/23 06:01 Chloride 110 mmol/L (98-107) H 01/12/23 06:01 Carbon Dioxide 28.0 mmol/L (21.0-32.0) 01/12/23 06:01 Anion Gap 3 (5-15) L 01/12/23 06:01 BUN 18 mg/dL (7-18) 01/12/23 06:01 Creatinine 0.88 mg/dL (0.70-1.30) 01/12/23 06:01 Est GFR (MDRD) Af Amer 106 mL/min (>60) 01/12/23 06:01 Est GFR (MDRD) Non-Af 88 mL/min (>60) 01/12/23 06:01 BUN/Creatinine Ratio 20.5 RATIO (10-20) H 01/12/23 06:01 Glucose 126 mg/dL (74-106) H 01/12/23 06:01 Gentamicin Peak 3.7 ug/mL (4.0-8.0) L 01/12/23 22:48 Gentamicin Trough 1.8 ug/mL (<2.0) 01/09/23 07:35 Microbiology Microbiology: Microbiology 01/12/23 06:02 Nasal Secretion SARS-CoV-2 Antigen (Rapid) - Final 01/05/23 15:58 Blood Culture (Wb) - Anticubital Right Blood Culture - Final No growth in 5 days. 01/05/23 16:03 Blood Culture (Wb) - Right Forearm Blood Culture - Final No growth in 5 days. 01/09/23 06:00 Nasal Secretion SARS-CoV-2 Antigen (Rapid) - Final 01/05/23 16:15 Urine, Catheterized Urine Culture - Final Pseudomonas putida 01/06/23 07:55 Mucosa - Nasopharyngeal Respiratory Panel (PCR) - Final 01/06/23 06:00 Nasal Secretion SARS-CoV-2 Antigen (Rapid) - Final Dosing Weight Weight used for dosin kg Estimated Creatinine Clearance Estimated Creatinine Clearance: 63 Pharmacy Plan for Drug Dosing Pharmacy Plan for Drug Dosing: Peak gentamicin level was drawn after the dose 01/12/23. The level was 3.7, within the target peak range of 3-5. Will continue dosing at the current 80mg q24h until the scheduled stop date of 01/14/23. Since plan is for discontinuation, no new gentamicin levels will be ordered. Pharmacy Service will continue to monitor and adjust dosing as required.
[2023-01-13] MEDS: levoFLOXacin 750 MG Tablet PO (06:11)
[2023-01-13] MEDS: Levothyroxine 88 MCG Tablet PO (06:11)
[2023-01-13] MEDS: Senna/Docusate Sodium 1 Tablet PO ×2 (09:35→21:34)
[2023-01-13] MEDS: Aspirin 81 MG TAB.CHEW PO (09:35)
[2023-01-13] MEDS: Miconazole Nitrate 43 GM Bottle 1 APPLIC TOPICAL ×2 (09:39→21:35)
[2023-01-13] MEDS: Menthol/Lanolin/Calamine/Znox 113 GM Tube 1 APPLIC TOPICAL ×2 (09:39→21:34)
[2023-01-13 09:42] VITALS: BP 98/53; PULSE 75
[2023-01-13] MEDS: Iron Polysaccharide Complex 150 MG CAPSULE PO (11:07)
[2023-01-13] MEDS: Polyethylene Glycol 3350 17 GM PACKET PO (11:07)
[2023-01-13] MEDS: Finasteride 5 MG Tablet PO (12:04)
[2023-01-13 12:12] VITALS: BP 92/50; PULSE 69; RESP 16; TEMP 36.7; O2SAT 98
[2023-01-13 16:16] LABS: Hematocrit 29.2 % (40-54); Hemoglobin 9.2 g/dL (13.0-16.5)
[2023-01-13] MEDS: Carvedilol 3.125 MG TABLET PO (16:42)
[2023-01-13] MEDS: Tamsulosin HCl 0.4 MG Capsule PO (16:42)
[2023-01-13] MEDS: 0.9% Saline Lock 10 ML Syringe IV ×2 (16:43→21:35)
[2023-01-13 16:46] VITALS: BP 126/62; PULSE 64
--- NOTE | 2023-01-13 16:50 | EX.PCM.CON.G ---
HPI Consult Data Date of Consult: 01/13/23 HPI Narrative Reason for Consultation: Anemia HPI Narrative: ERMELINDA DIEGO, is a 87-year-old male status post laparoscopic bilateral herniorrhaphy with Dr. Gross was readmitted for recurrent postoperative urinary retention, postoperative constipation, and general debility. He was diagnosed with postoperative ileus. This was presumed secondary to recent laparoscopic bilateral inguinal hernia repair on 12/27. General surgery followed. KUB on admit showed mild constipation with no concern for ileus or SBO. Repeat KUB on 01/01 showed multiple dilated small bowel loops suspicious for SBO. Per surgery, imaging findings were most consistent with ileus and did not show a bowel obstruction. KUB on 01/02 showed mildly improved but persistent gaseous distention of small bowel loops. Had large bowel movement overnight on 01/02. He was advanced to a regular diet by 01/04 without issue. Daily MiraLAX and senna were started during admission, will continue these on discharge. Per surgery, can plan for office follow-up in 2 weeks. He was also discovered to have acute on chronic anemia that was presumed secondary to recent surgery. Baseline hemoglobin between and . Hemoglobin 8.6 on admit, down trended to 7.2 on 01/02 but then improved back to 8.6 on 01/03 Iron studies consistent with anemia of chronic disease. I was consulted because his hemoglobin stays persistently low. He does not know if he has had a colonoscopy in the past. He does take a daily 81 mg aspirin. [facility] Medical History (Updated 01/05/23 @ 00:01 by Background Daemon) Acute on chronic anemia Aneurysm of infrarenal abdominal aorta Anxiety Arthritis Atherosclerotic heart disease of [place] coronary artery without angina pectoris Cancer Cardiology follow-up encounter Dementia Depression Essential hypertension Former smoker Gastric reflux Hard of hearing High cholesterol History of echocardiogram History of lateral wall myocardial infarction Left ventricular systolic dysfunction Lymphoma Memory deficit Pneumonia due to COVID-19 virus Pure hypercholesterolemia Stented coronary artery (~02/22/16) Thrombocytopenia Thyroid disease Type 2 diabetes mellitus Type 2 diabetes mellitus with hyperglycemia Urinary retention Wears glasses Wears hearing aid Wears partial dentures Home Medications atorvastatin 40 mg tablet [address] Gr manages cholesterol #90 tabs 05/24/18 [Rx Last Taken 01/03/23] carvedilol 3.125 mg tablet 3.125 mg PO BID bp 01/29/20 [History Last Taken 01/04/23] aspirin 81 mg tablet,delayed release 81 mg PO DAILY@0800 [facility]ART [facility] 03/09/20 [History Last Taken 01/04/23] dutasteride 0.5 mg capsule 0.5 mg PO DAILY prostate 12/08/22 [History Last Taken Unknown] levothyroxine 88 mcg tablet 88 mcg PO DAILY thyroid 12/26/22 [History Last Taken 12/30/22] mirtazapine 15 mg tablet 15 mg PO QHS mood/appetite 90 days #90 tabs 01/04/23 [Rx Last Taken Unknown] polyethylene glycol 3350 17 gram oral powder packet 17 g PO DAILY bowels #30 ea 01/04/23 [Rx Last Taken Unknown] sennosides 8.6 mg-docusate sodium 50 mg tablet (Stool Softener-Stimulant Laxative) 1 tab PO BID bowels #60 tabs 01/04/23 [Rx Last Taken 01/04/23] tamsulosin 0.4 mg capsule 0.4 mg PO DAILY@1730 prostate 90 days #90 caps 01/04/23 [Rx Last Taken Unknown] Allergy/AdvReac Type Severity Reaction Status Date / Time Penicillins Allergy Hives Verified 12/30/22 20:57 tree and shrub pollen Allergy Other Verified 12/30/22 20:57 lisinopril AdvReac Mild cough Verified 12/30/22 20:57 Family History Father , age 39 from [place] CAD (coronary artery disease) Myocardial infarction Sudden cardiac Mother Diabetes Surgical History (Updated 01/05/23 @ 00:01 by Background Rolando) History of appendectomy History of left heart catheterization Hx of bilateral cataract extraction Hx of cystoscopy Hx of tonsillectomy Presence of coronary angioplasty implant and graft (~02/22/16) S/P inguinal hernia repair Social History (Updated 01/04/23 @ 21:[address] Andrea Seymour MD) household members: none Smoking Status: Former smoker how long ago did patient quit smokin years ago alcohol intake: current alcohol intake frequency: a few times a week Alcohol type: beer substance use type: does not use caffeine: Yes Type: coffee Number of servings: 2 ROS Constitutional Constitutional: Denies chills, fever(s) or weight gain ENT HEENT: Denies headache(s), nasal congestion or nasal discharge Cardiovascular Cardiovascular: Denies chest pain or palpitations Respiratory/Chest Respiratory/Chest: Denies cough, excessive phlegm production or shortness of breath with exertion Gastrointestinal Gastrointestinal: Denies abdominal pain, nausea or vomiting Genitourinary Genitourinary: Denies dysuria Musculoskeletal Musculoskeletal: Denies joint pain or joint swelling Integumentary Integumentary: Denies rash or wounds Neurologic Neurologic: Denies focal weakness, numbness or tingling Psychiatric Psychiatric: Denies anxiety, auditory hallucinations, depression, homicidal ideation or suicidal ideation Physical Exam Const alert General Appearance: cooperative HEENT normocephalic Eyes PERRL and EOMs intact bilaterally Neck supple, no JVD and no carotid bruits Resp normal respiratory effort, normal air movement and clear to auscultation bilaterally Cardio regular rate and regular rhythm GI normal to inspection, nondistended, normoactive bowel sounds, non-tender and non-distended Extremity normal capillary refill General Extremity: Negative for edema Skin no rashes or lesions noted General Skin Exam: no breakdown Psych affect normal Appearance: appropriate Lab / Micro Data 01/13/23 15:51 01/12/23 06:01 Labs: Laboratory Results - last 24 hr 01/12/23 22:48: Gentamicin Peak 3.7 L 01/13/23 15:51: Hgb 9.2 L, Hct 29.2 L Micro: Microbiology 01/13/23 03:00 Stool Stool Occult Blood (CONSTANTIN) - Final Occult Blood Positive Assessment & Plan Assessment/Plan (1) Postoperative ileus: PLAN: Plan Patient is an 87-year-old male with history of debility, urinary retention, anemia, hypothyroidism, type 2 diabetes, CAD, hypertension, cognitive impairment and recent laparoscopic bilateral inguinal hernia repair (12/27/2022) who presented to [facility] ED on 12/30/2022 with worsening weakness and constipation. Acute on chronic anemia that is presumed to be secondary to recent surgery. Baseline hemoglobin between 10 and 11. Hemoglobin 8.6 on admit, down trended to 7.2 on 01/02 but then improved to 8.6 on 01/03, have suspicion the hemoglobin reading on 01/02 was erroneous. Iron studies consistent with anemia of chronic disease. Also in the differential diagnosis would be peptic ulcer disease, H. pylori associated gastritis, Jabari's erosions, telangiectasias, neoplasia. I think he would benefit from an upper endoscopy and if that is negative when he can handle a colon prep possible a colonoscopy. The plan would be for him to undergo an upper endoscopy on Monday01/16/23 unless his hgb continues to drop. Charges/Coding Visit Charges Inpatient E&M: 44389 [facility] Init L1
[2023-01-13] MEDS: Atorvastatin Calcium 40 MG Tablet PO (21:34)
[2023-01-13] MEDS: Mirtazapine 15 MG Tablet PO (21:34)
[2023-01-13] MEDS: DEXTROSE 5% IVPB (21:35)
[2023-01-13] MEDS: WATER IVPB (21:35)
[2023-01-13] MEDS: GENTAMICIN IVPB (21:35)
[2023-01-14] MEDS: levoFLOXacin 750 MG Tablet PO (06:00)
[2023-01-14] MEDS: Levothyroxine 88 MCG Tablet PO (06:00)
[2023-01-14] MEDS: Finasteride 5 MG Tablet PO (08:54)
[2023-01-14] MEDS: Polyethylene Glycol 3350 17 GM PACKET PO (08:54)
[2023-01-14] MEDS: Iron Polysaccharide Complex 150 MG CAPSULE PO (08:54)
[2023-01-14] MEDS: Carvedilol 3.125 MG TABLET PO (08:54)
[2023-01-14] MEDS: Aspirin 81 MG TAB.CHEW PO (08:54)
[2023-01-14] MEDS: Senna/Docusate Sodium 1 Tablet PO ×2 (08:55→21:10)
[2023-01-14] MEDS: Miconazole Nitrate 43 GM Bottle 1 APPLIC TOPICAL ×2 (08:59→21:17)
[2023-01-14] MEDS: Menthol/Lanolin/Calamine/Znox 113 GM Tube 1 APPLIC TOPICAL ×2 (08:59→21:18)
[2023-01-14 15:59] VITALS: BP 85/45; PULSE 70; RESP 22; TEMP 36.5; O2SAT 96
[2023-01-14] MEDS: Tamsulosin HCl 0.4 MG Capsule PO (17:26)
[2023-01-14] MEDS: Atorvastatin Calcium 40 MG Tablet PO (21:08)
[2023-01-14] MEDS: Acetaminophen 500 MG Tablet 1000 MG PO (21:09)
[2023-01-14] MEDS: Mirtazapine 15 MG Tablet PO (21:09)
[2023-01-14] MEDS: 0.9% Saline Lock 10 ML Syringe IV (21:19)
[2023-01-14] MEDS: DEXTROSE 5% IVPB (21:31)
[2023-01-14] MEDS: 0.9% Normal Saline (250mL Bag) 250 ML 15 ML IV (21:31)
[2023-01-14] MEDS: WATER IVPB (21:31)
[2023-01-14] MEDS: GENTAMICIN IVPB (21:31)
[2023-01-15] MEDS: levoFLOXacin 750 MG Tablet PO (05:50)
[2023-01-15] MEDS: Levothyroxine 88 MCG Tablet PO (05:51)
[2023-01-15 07:29] LABS: Hematocrit 31.4 % (40-54); Hemoglobin 9.7 g/dL (13.0-16.5)
[2023-01-15] MEDS: Polyethylene Glycol 3350 17 GM PACKET PO (09:18)
[2023-01-15] MEDS: Finasteride 5 MG Tablet PO (09:18)
[2023-01-15] MEDS: Iron Polysaccharide Complex 150 MG CAPSULE PO (09:19)
[2023-01-15] MEDS: Menthol/Lanolin/Calamine/Znox 113 GM Tube 1 APPLIC TOPICAL ×2 (09:19→22:09)
[2023-01-15] MEDS: Aspirin 81 MG TAB.CHEW PO (09:19)
[2023-01-15] MEDS: Senna/Docusate Sodium 1 Tablet PO ×2 (09:19→22:08)
[2023-01-15] MEDS: Carvedilol 3.125 MG TABLET PO ×2 (09:19→18:19)
[2023-01-15] MEDS: Miconazole Nitrate 43 GM Bottle 1 APPLIC TOPICAL ×2 (09:20→22:09)
[2023-01-15 12:52] VITALS: BP 84/51; PULSE 64; RESP 16; TEMP 36.7; O2SAT 99
[2023-01-15] MEDS: Tamsulosin HCl 0.4 MG Capsule PO (18:19)
[2023-01-15] MEDS: NYSTATIN 500,000 UNIT/5 ML UDC 500000 UNIT PO ×2 (18:19→22:10)
[2023-01-15] MEDS: Mirtazapine 15 MG Tablet PO (22:08)
[2023-01-15] MEDS: Atorvastatin Calcium 40 MG Tablet PO (22:08)
[2023-01-15] MEDS: 0.9% Saline Lock 10 ML Syringe IV (22:10)
--- NOTE | 2023-01-16 01:51 | NURSING ---
PO medications scheduled for 0600 to held this am d/t NPO status for upper endoscopy. Will report to oncoming nurse.
[2023-01-16] MEDS: levoFLOXacin 750 MG Tablet PO (08:58)
[2023-01-16] MEDS: NYSTATIN 500,000 UNIT/5 ML UDC 500000 UNIT PO ×3 (08:58→22:24)
[2023-01-16] MEDS: Carvedilol 3.125 MG TABLET PO ×2 (08:59→16:49)
[2023-01-16] MEDS: Levothyroxine 88 MCG Tablet PO (08:59)
[2023-01-16] MEDS: Menthol/Lanolin/Calamine/Znox 113 GM Tube 1 APPLIC TOPICAL ×2 (08:59→22:23)
[2023-01-16] MEDS: Aspirin 81 MG TAB.CHEW PO (08:59)
[2023-01-16] MEDS: Iron Polysaccharide Complex 150 MG CAPSULE PO (09:00)
[2023-01-16] MEDS: Miconazole Nitrate 43 GM Bottle 1 APPLIC TOPICAL ×2 (09:00→22:24)
[2023-01-16] MEDS: Polyethylene Glycol 3350 17 GM PACKET PO (09:00)
[2023-01-16] MEDS: Senna/Docusate Sodium 1 Tablet PO ×2 (09:01→22:26)
[2023-01-16] MEDS: Finasteride 5 MG Tablet PO (09:01)
[2023-01-16 14:25] VITALS: BP 106/56; PULSE 72; RESP 20; TEMP 36.4; O2SAT 96
[2023-01-16] MEDS: Tamsulosin HCl 0.4 MG Capsule PO (16:50)
[2023-01-16] MEDS: Atorvastatin Calcium 40 MG Tablet PO (22:25)
[2023-01-16] MEDS: Pantoprazole Sodium 40 MG Tablet PO (22:25)
[2023-01-16] MEDS: Mirtazapine 15 MG Tablet PO (22:26)
[2023-01-16] MEDS: 0.9% Saline Lock 10 ML Syringe IV (22:27)
[2023-01-17] MEDS: NYSTATIN 500,000 UNIT/5 ML UDC 500000 UNIT PO ×4 (05:58→21:05)
[2023-01-17] MEDS: Levothyroxine 88 MCG Tablet PO (05:58)
[2023-01-17] MEDS: Menthol/Lanolin/Calamine/Znox 113 GM Tube 1 APPLIC TOPICAL ×2 (09:06→21:07)
[2023-01-17] MEDS: Aspirin 81 MG TAB.CHEW PO (09:06)
[2023-01-17] MEDS: Carvedilol 3.125 MG TABLET PO (09:06)
[2023-01-17] MEDS: Miconazole Nitrate 43 GM Bottle 1 APPLIC TOPICAL ×2 (09:07→21:08)
[2023-01-17] MEDS: Iron Polysaccharide Complex 150 MG CAPSULE PO (09:07)
[2023-01-17] MEDS: Polyethylene Glycol 3350 17 GM PACKET PO (09:07)
[2023-01-17] MEDS: Pantoprazole Sodium 40 MG Tablet PO ×2 (09:08→21:05)
[2023-01-17] MEDS: Senna/Docusate Sodium 1 Tablet PO ×2 (09:08→21:05)
[2023-01-17] MEDS: Finasteride 5 MG Tablet PO (09:08)
--- NOTE | 2023-01-17 09:08 | MDS.RN ---
Information for the mds was obtained from review of the clinical record, interview of resident, staff, and direct observation of resident's care. Unable to finalize admission/5 day mds assessment d/t Section O martha. 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
[2023-01-17 14:21] VITALS: BMI 24.3
[2023-01-17 14:37] VITALS: BP 85/47; PULSE 74; RESP 14; TEMP 36.5; O2SAT 95
[2023-01-17] MEDS: 0.9% Saline Lock 10 ML Syringe IV (16:05)
[2023-01-17] MEDS: Tamsulosin HCl 0.4 MG Capsule PO (16:06)
[2023-01-17] MEDS: Acetaminophen 500 MG Tablet 1000 MG PO (17:53)
[2023-01-17 21:05] VITALS: BP 106/56; PULSE 69; RESP 17; O2SAT 96
[2023-01-17] MEDS: Mirtazapine 15 MG Tablet PO (21:05)
[2023-01-17] MEDS: Atorvastatin Calcium 40 MG Tablet PO (21:05)
[2023-01-18] MEDS: NYSTATIN 500,000 UNIT/5 ML UDC 500000 UNIT PO ×4 (05:17→21:18)
[2023-01-18] MEDS: 0.9% Saline Lock 10 ML Syringe IV (05:17)
[2023-01-18] MEDS: Levothyroxine 88 MCG Tablet PO (05:17)
[2023-01-18] MEDS: Iron Polysaccharide Complex 150 MG CAPSULE PO (08:34)
[2023-01-18] MEDS: Polyethylene Glycol 3350 17 GM PACKET PO (08:34)
[2023-01-18] MEDS: Aspirin 81 MG TAB.CHEW PO (08:34)
[2023-01-18] MEDS: Carvedilol 3.125 MG TABLET PO ×2 (08:34→16:44)
[2023-01-18] MEDS: Finasteride 5 MG Tablet PO (08:35)
[2023-01-18] MEDS: Senna/Docusate Sodium 1 Tablet PO ×2 (08:35→21:18)
[2023-01-18] MEDS: Pantoprazole Sodium 40 MG Tablet PO ×2 (08:35→21:18)
[2023-01-18] MEDS: Menthol/Lanolin/Calamine/Znox 113 GM Tube 1 APPLIC TOPICAL ×2 (08:38→21:16)
[2023-01-18] MEDS: Miconazole Nitrate 43 GM Bottle 1 APPLIC TOPICAL ×2 (08:38→21:16)
[2023-01-18 08:41] VITALS: BP 131/67; PULSE 73
[2023-01-18] MEDS: Acetaminophen 500 MG Tablet 1000 MG PO (13:39)
[2023-01-18 13:41] VITALS: BP 109/54; PULSE 73; RESP 16; TEMP 36.4; O2SAT 97
[2023-01-18] MEDS: Tamsulosin HCl 0.4 MG Capsule PO (16:44)
[2023-01-18 16:47] VITALS: BP 112/59; PULSE 75
--- NOTE | 2023-01-18 18:26 | PCA ---
alarm checked and on with Renata
--- NOTE | 2023-01-18 21:15 | PCA ---
This QUALITY LAB TECHNICIAN went into pt room to help with HS care. Pt was very agitated and refused any help from QUALITY LAB TECHNICIAN.
[2023-01-18] MEDS: Mirtazapine 15 MG Tablet PO (21:18)
[2023-01-18] MEDS: Atorvastatin Calcium 40 MG Tablet PO (21:18)
[2023-01-19] MEDS: 0.9% Saline Lock 10 ML Syringe IV ×2 (05:20→13:06)
[2023-01-19] MEDS: Levothyroxine 88 MCG Tablet PO (05:21)
[2023-01-19] MEDS: NYSTATIN 500,000 UNIT/5 ML UDC 500000 UNIT PO ×4 (05:22→20:23)
[2023-01-19 06:03] LABS: Absolute Lymphocyte Count 4.08 X10^3/uL (0.83-4.51); Absolute Neutrophil Count 0.5 X10^3/uL (2.0-7.7); Basophil# 0.02 X10^3/uL; Basophil% 0.4 % (0-1); Eosinophil# 0.12 X10^3/uL; Eosinophils% 2.5 % (0-5); Hematocrit 30.8 % (40-54); Hemoglobin 9.7 g/dL (13.0-16.5); Lymphocyte # 4.08 X10^3/ul (0.83-4.51); Lymphocyte % 85.4 % (19-41); Mean Corp Hgb Conc 31.5 g/dL (32-36); Mean Corpuscular Hgb 29.7 pg (27.0-32.0); Mean Corpuscular Volume 94.2 fL (80-94); Mean Platelet Vol. 8.5 fl (6.2-12.0); Monocyte# 0.06 X10^3/uL; Monocyte% 1.3 % (0-10); NRBC Flagged by Analyzer 0 % (0-5); Neutrophil # 0.49 X10^3/uL (2.7-7.7); Neutrophil % 10.2 % (47-70); POSITIVE DIFFERENTIAL YES; Platelet Count 131 K/mm3 (150-450); RBC Distribution Width SD 52.2 fl (35.1-43.9); Red Blood Count 3.27 M/mm3 (4.6-6.2); White Blood Count 4.8 K/mm3 (4.4-11.0)
[2023-01-19 06:25] LABS: Differential Indicated SCAN CRITERIA MET
[2023-01-19 06:44] LABS: Anisocytosis 1+; Platelet Estimate SLT DEC (ADEQ)
[2023-01-19 06:59] LABS: Anion Gap 4 (5-15); BUN 25 mg/dL (7-18); BUN/Creat Ratio 23.4 RATIO (10-20); Chloride 106 mmol/L (98-107); Creatinine, Serum 1.07 mg/dL (0.70-1.30); EST Glomerular Filtration Rate 70 mL/min (>60); Est Glom Filt Rate - Afr Amer 85 mL/min (>60); Estimated Creatinine Clearance 52.12 ml/min; Glucose 130 mg/dL (74-106); Potassium 4.5 mmol/L (3.5-5.1); Sodium Level 140 mmol/L (136-145)
[2023-01-19] MEDS: Aspirin 81 MG TAB.CHEW PO (08:06)
[2023-01-19] MEDS: Carvedilol 3.125 MG TABLET PO (08:06)
[2023-01-19] MEDS: Pantoprazole Sodium 40 MG Tablet PO ×2 (08:06→20:23)
[2023-01-19] MEDS: Polyethylene Glycol 3350 17 GM PACKET PO (08:06)
[2023-01-19] MEDS: Iron Polysaccharide Complex 150 MG CAPSULE PO (08:06)
[2023-01-19] MEDS: Senna/Docusate Sodium 1 Tablet PO (08:06)
[2023-01-19] MEDS: Finasteride 5 MG Tablet PO (08:06)
[2023-01-19] MEDS: Menthol/Lanolin/Calamine/Znox 113 GM Tube 1 APPLIC TOPICAL ×2 (08:07→20:23)
[2023-01-19] MEDS: Miconazole Nitrate 43 GM Bottle 1 APPLIC TOPICAL ×2 (08:07→20:24)
[2023-01-19 08:10] VITALS: BP 133/63; PULSE 72
[2023-01-19 08:12] VITALS: BP 133/63; PULSE 72
[2023-01-19 15:03] VITALS: BP 91/53; PULSE 75; RESP 16; TEMP 36.5; O2SAT 96
[2023-01-19 16:00] VITALS: BP 91/53; PULSE 75; RESP 16; TEMP 36.5; O2SAT 96
[2023-01-19] MEDS: Tamsulosin HCl 0.4 MG Capsule PO (16:19)
[2023-01-19] MEDS: Mirtazapine 15 MG Tablet PO (20:22)
[2023-01-19] MEDS: Atorvastatin Calcium 40 MG Tablet PO (20:23)
--- NOTE | 2023-01-19 21:34 | PCA ---
This FARM EQUIPMENT MAINTENANCE SUPERVISOR was rounding and heard raised voices coming from patient room 21. FARM EQUIPMENT MAINTENANCE SUPERVISOR could hear family member yelling at resident to shut up and patient was yelling back agitated. FARM EQUIPMENT MAINTENANCE SUPERVISOR did not confront family member but reported to first shift nurse.
--- NOTE | 2023-01-20 06:34 | PCA ---
alarm checked and on with Phillip
[2023-01-20] MEDS: NYSTATIN 500,000 UNIT/5 ML UDC 500000 UNIT PO ×4 (06:37→22:10)
[2023-01-20] MEDS: Levothyroxine 88 MCG Tablet PO (06:37)
[2023-01-20] MEDS: Carvedilol 3.125 MG TABLET PO ×2 (08:46→17:21)
[2023-01-20] MEDS: Finasteride 5 MG Tablet PO (08:46)
[2023-01-20] MEDS: Aspirin 81 MG TAB.CHEW PO (08:46)
[2023-01-20] MEDS: Pantoprazole Sodium 40 MG Tablet PO ×2 (08:46→22:10)
[2023-01-20] MEDS: Iron Polysaccharide Complex 150 MG CAPSULE PO (08:47)
[2023-01-20] MEDS: Polyethylene Glycol 3350 17 GM PACKET PO (08:47)
[2023-01-20] MEDS: Senna/Docusate Sodium 1 Tablet PO ×2 (08:47→22:11)
[2023-01-20] MEDS: Menthol/Lanolin/Calamine/Znox 113 GM Tube 1 APPLIC TOPICAL (10:41)
[2023-01-20] MEDS: Miconazole Nitrate 43 GM Bottle 1 APPLIC TOPICAL (10:42)
[2023-01-20 15:19] VITALS: BP 106/55; PULSE 63; RESP 18; TEMP 36.9; O2SAT 97
[2023-01-20] MEDS: Tamsulosin HCl 0.4 MG Capsule PO (17:21)
[2023-01-20] MEDS: Mirtazapine 15 MG Tablet PO (22:10)
[2023-01-20] MEDS: Atorvastatin Calcium 40 MG Tablet PO (22:11)
[2023-01-21] MEDS: Levothyroxine 88 MCG Tablet PO (05:11)
[2023-01-21] MEDS: NYSTATIN 500,000 UNIT/5 ML UDC 500000 UNIT PO ×4 (05:11→21:14)
[2023-01-21] MEDS: Carvedilol 3.125 MG TABLET PO ×2 (09:00→17:03)
[2023-01-21] MEDS: Aspirin 81 MG TAB.CHEW PO (09:00)
[2023-01-21] MEDS: Iron Polysaccharide Complex 150 MG CAPSULE PO (09:00)
[2023-01-21] MEDS: Polyethylene Glycol 3350 17 GM PACKET PO (09:00)
[2023-01-21] MEDS: Finasteride 5 MG Tablet PO (09:00)
[2023-01-21] MEDS: Miconazole Nitrate 43 GM Bottle 1 APPLIC TOPICAL ×2 (09:01→21:15)
[2023-01-21] MEDS: Menthol/Lanolin/Calamine/Znox 113 GM Tube 1 APPLIC TOPICAL ×2 (09:01→21:15)
[2023-01-21] MEDS: Pantoprazole Sodium 40 MG Tablet PO ×2 (09:02→21:14)
[2023-01-21] MEDS: Senna/Docusate Sodium 1 Tablet PO ×2 (09:02→21:13)
[2023-01-21 09:08] VITALS: BP 133/71; PULSE 67
[2023-01-21 14:40] VITALS: BP 98/55; PULSE 70; RESP 18; TEMP 36.4; O2SAT 97
[2023-01-21] MEDS: Tamsulosin HCl 0.4 MG Capsule PO (17:03)
[2023-01-21 17:05] VITALS: BP 123/68; PULSE 68
[2023-01-21] MEDS: Mirtazapine 15 MG Tablet PO (21:14)
[2023-01-21] MEDS: Atorvastatin Calcium 40 MG Tablet PO (21:14)
[2023-01-22] MEDS: NYSTATIN 500,000 UNIT/5 ML UDC 500000 UNIT PO ×4 (06:30→22:53)
[2023-01-22] MEDS: Levothyroxine 88 MCG Tablet PO (06:30)
[2023-01-22] MEDS: Finasteride 5 MG Tablet PO (08:50)
[2023-01-22] MEDS: Pantoprazole Sodium 40 MG Tablet PO ×2 (08:50→22:53)
[2023-01-22] MEDS: Carvedilol 3.125 MG TABLET PO ×2 (08:50→16:31)
[2023-01-22] MEDS: Aspirin 81 MG TAB.CHEW PO (08:50)
[2023-01-22] MEDS: Polyethylene Glycol 3350 17 GM PACKET PO (08:50)
[2023-01-22] MEDS: Senna/Docusate Sodium 1 Tablet PO ×2 (08:50→22:54)
[2023-01-22] MEDS: Iron Polysaccharide Complex 150 MG CAPSULE PO (08:50)
[2023-01-22] MEDS: Menthol/Lanolin/Calamine/Znox 113 GM Tube 1 APPLIC TOPICAL ×2 (08:51→22:57)
[2023-01-22] MEDS: Miconazole Nitrate 43 GM Bottle 1 APPLIC TOPICAL ×2 (08:51→22:57)
[2023-01-22 14:54] VITALS: BP 114/63; PULSE 64; RESP 18; TEMP 36.4; O2SAT 97
[2023-01-22] MEDS: Tamsulosin HCl 0.4 MG Capsule PO (16:31)
--- NOTE | 2023-01-22 16:35 | NURSING ---
Pt C/O of sore throat Dr. Seymour updated N.O. for Covid Swab.
[2023-01-22] MEDS: Atorvastatin Calcium 40 MG Tablet PO (22:53)
[2023-01-22] MEDS: Mirtazapine 15 MG Tablet PO (22:53)
[2023-01-23] MEDS: NYSTATIN 500,000 UNIT/5 ML UDC 500000 UNIT PO ×4 (06:04→21:08)
[2023-01-23] MEDS: Levothyroxine 88 MCG Tablet PO (06:04)
[2023-01-23] MEDS: Carvedilol 3.125 MG TABLET PO ×2 (09:10→16:29)
[2023-01-23] MEDS: Finasteride 5 MG Tablet PO (09:10)
[2023-01-23] MEDS: Senna/Docusate Sodium 1 Tablet PO ×2 (09:10→21:08)
[2023-01-23] MEDS: Aspirin 81 MG TAB.CHEW PO (09:10)
[2023-01-23] MEDS: Polyethylene Glycol 3350 17 GM PACKET PO (09:10)
[2023-01-23] MEDS: Iron Polysaccharide Complex 150 MG CAPSULE PO (09:10)
[2023-01-23] MEDS: Pantoprazole Sodium 40 MG Tablet PO ×2 (09:10→21:08)
[2023-01-23] MEDS: Miconazole Nitrate 43 GM Bottle 1 APPLIC TOPICAL ×2 (09:11→21:07)
[2023-01-23] MEDS: Menthol/Lanolin/Calamine/Znox 113 GM Tube 1 APPLIC TOPICAL ×2 (09:11→21:07)
[2023-01-23 14:10] VITALS: BP 111/67; PULSE 79; RESP 19; TEMP 36.6; O2SAT 97
[2023-01-23] MEDS: Tamsulosin HCl 0.4 MG Capsule PO (16:31)
--- NOTE | 2023-01-23 16:59 | CASEMGMT ---
Addendum entered by Catie Jones 01/23/23 17:01: Correction: Scheduled for 01/25 Original Note: Social Work Dtr phoned with this worker and requested to have another POC meeting scheduled to review pt's progress and DC plans. Scheduled for 01/24. ANGIE Syed
[2023-01-23] MEDS: Atorvastatin Calcium 40 MG Tablet PO (21:08)
[2023-01-23] MEDS: Mirtazapine 15 MG Tablet PO (21:08)
[2023-01-24] MEDS: Levothyroxine 88 MCG Tablet PO (05:46)
[2023-01-24] MEDS: NYSTATIN 500,000 UNIT/5 ML UDC 500000 UNIT PO ×4 (05:46→21:01)
[2023-01-24] MEDS: Carvedilol 3.125 MG TABLET PO ×2 (09:46→18:37)
[2023-01-24] MEDS: Pantoprazole Sodium 40 MG Tablet PO ×2 (09:47→21:01)
[2023-01-24] MEDS: Iron Polysaccharide Complex 150 MG CAPSULE PO (09:47)
[2023-01-24] MEDS: Miconazole Nitrate 43 GM Bottle 1 APPLIC TOPICAL ×2 (09:47→21:00)
[2023-01-24] MEDS: Menthol/Lanolin/Calamine/Znox 113 GM Tube 1 APPLIC TOPICAL ×2 (09:47→21:00)
[2023-01-24] MEDS: Finasteride 5 MG Tablet PO (09:47)
[2023-01-24] MEDS: Aspirin 81 MG TAB.CHEW PO (09:47)
[2023-01-24] MEDS: Polyethylene Glycol 3350 17 GM PACKET PO (09:47)
[2023-01-24] MEDS: Senna/Docusate Sodium 1 Tablet PO ×2 (09:48→21:01)
[2023-01-24 10:17] VITALS: BMI 23.6
[2023-01-24 12:45] VITALS: BP 114/65; PULSE 67; RESP 17; TEMP 36.2; O2SAT 98
[2023-01-24] MEDS: Tamsulosin HCl 0.4 MG Capsule PO (18:37)
[2023-01-24 19:53] VITALS: PULSE 73; RESP 16
[2023-01-24] MEDS: Atorvastatin Calcium 40 MG Tablet PO (21:01)
[2023-01-24] MEDS: Mirtazapine 15 MG Tablet PO (21:01)
[2023-01-25] MEDS: Levothyroxine 88 MCG Tablet PO (05:38)
[2023-01-25] MEDS: NYSTATIN 500,000 UNIT/5 ML UDC 500000 UNIT PO ×3 (05:38→17:14)
[2023-01-25] MEDS: Senna/Docusate Sodium 1 Tablet PO ×2 (08:17→22:18)
[2023-01-25] MEDS: Carvedilol 3.125 MG TABLET PO ×2 (08:17→17:14)
[2023-01-25] MEDS: Polyethylene Glycol 3350 17 GM PACKET PO (08:17)
[2023-01-25] MEDS: Finasteride 5 MG Tablet PO (08:17)
[2023-01-25] MEDS: Iron Polysaccharide Complex 150 MG CAPSULE PO (08:17)
[2023-01-25] MEDS: Pantoprazole Sodium 40 MG Tablet PO ×2 (08:17→22:17)
[2023-01-25] MEDS: Aspirin 81 MG TAB.CHEW PO (08:18)
[2023-01-25] MEDS: Menthol/Lanolin/Calamine/Znox 113 GM Tube 1 APPLIC TOPICAL ×2 (08:18→22:24)
[2023-01-25] MEDS: Miconazole Nitrate 43 GM Bottle 1 APPLIC TOPICAL ×2 (08:18→22:23)
[2023-01-25 08:43] VITALS: BP 116/67; PULSE 69
[2023-01-25 12:46] VITALS: PULSE 65; O2SAT 95
--- NOTE | 2023-01-25 13:29 | CASEMGMT ---
Social Work IDT met with patient, son, two dtrs and DIL for care plan meeting. Discussed patient's updated progress from PT/OT/ST. Educated to [facility] insurance approving with [facility] 02/01, only to allow time for DC planning and to provide at [facility] the DC date and plans. IDT is recommending 24/7 care for cognition. Educated to options of USER EXPERIENCE RESEARCHER, [place] or SNF, and OOP Cost; however, pt will continue with skilled HHC or OP therapy. Family concluded pt will DC to sonChapin's house. Chapin has a one story home, 2 FERN with no HR, walk in shower with grab bars and a chair. Pt will have carpet in his bedroom. Family and IDT identified no DME needs. Pt does agree with DC plan. SW offered to set DC date for next week. Family to discuss and notify this worker. SW will continue to follow. ANGIE SyedW
[2023-01-25 16:00] VITALS: BP 119/73; PULSE 66; RESP 16; TEMP 37.2; O2SAT 98
[2023-01-25] MEDS: Tamsulosin HCl 0.4 MG Capsule PO (17:14)
[2023-01-25] MEDS: Mirtazapine 15 MG Tablet PO (22:17)
[2023-01-25] MEDS: Atorvastatin Calcium 40 MG Tablet PO (22:18)
[2023-01-26] MEDS: Levothyroxine 88 MCG Tablet PO (05:19)
[2023-01-26 06:00] LABS: Absolute Neutrophil Count 0.6 X10^3/uL (2.0-7.7); Basophil# 0.03 X10^3/uL; Basophil% 0.7 % (0-1); Eosinophil# 0.23 X10^3/uL; Eosinophils% 5.1 % (0-5); Hematocrit 31.5 % (40-54); Hemoglobin 10.2 g/dL (13.0-16.5); Lymphocyte % 79.8 % (19-41); Mean Corp Hgb Conc 32.4 g/dL (32-36); Mean Corpuscular Hgb 30.7 pg (27.0-32.0); Mean Corpuscular Volume 94.9 fL (80-94); Mean Platelet Vol. 8.8 fl (6.2-12.0); Monocyte# 0.08 X10^3/uL; Monocyte% 1.8 % (0-10); NRBC Flagged by Analyzer 0 % (0-5); Neutrophil # 0.55 X10^3/uL (2.7-7.7); Neutrophil % 12.2 % (47-70); POSITIVE DIFFERENTIAL YES; Platelet Count 110 K/mm3 (150-450); RBC Distribution Width SD 52.5 fl (35.1-43.9); Red Blood Count 3.32 M/mm3 (4.6-6.2); White Blood Count 4.5 K/mm3 (4.4-11.0)
[2023-01-26 06:33] LABS: Anion Gap 4 (5-15); BUN 31 mg/dL (7-18); BUN/Creat Ratio 31.7 RATIO (10-20); Calcium,Total 8.2 mg/dL (8.5-10.1); Chloride 106 mmol/L (98-107); Creatinine, Serum 0.98 mg/dL (0.70-1.30); EST Glomerular Filtration Rate 77 mL/min (>60); Est Glom Filt Rate - Afr Amer 94 mL/min (>60); Glucose 140 mg/dL (74-106); Potassium 4.4 mmol/L (3.5-5.1); Sodium Level 139 mmol/L (136-145)
[2023-01-26 06:51] LABS: Differential Indicated SCAN CRITERIA MET
[2023-01-26 06:56] LABS: Differential Comment SCANNED
[2023-01-26 09:13] VITALS: BP 128/83; PULSE 73; RESP 16; TEMP 36.3; O2SAT 96
[2023-01-26] MEDS: Aspirin 81 MG TAB.CHEW PO (09:15)
[2023-01-26] MEDS: Carvedilol 3.125 MG TABLET PO ×2 (09:15→16:59)
[2023-01-26] MEDS: Senna/Docusate Sodium 1 Tablet PO ×2 (09:16→20:29)
[2023-01-26] MEDS: Finasteride 5 MG Tablet PO (09:16)
[2023-01-26] MEDS: Pantoprazole Sodium 40 MG Tablet PO ×2 (09:16→20:29)
[2023-01-26] MEDS: Iron Polysaccharide Complex 150 MG CAPSULE PO (09:17)
[2023-01-26] MEDS: Miconazole Nitrate 43 GM Bottle 1 APPLIC TOPICAL ×2 (09:17→20:35)
[2023-01-26] MEDS: Menthol/Lanolin/Calamine/Znox 113 GM Tube 1 APPLIC TOPICAL ×2 (09:17→20:35)
[2023-01-26] MEDS: Polyethylene Glycol 3350 17 GM PACKET PO (09:18)
--- NOTE | 2023-01-26 14:12 | CASEMGMT ---
Social Work Received call from son stating family has chosen DC 01/30. SW inquired about using [facility] as pt used prior or if family has chosen another HHC agency from list provided to family at [facility] mtg from this worker via [employer]. Son agreeable to [facility]. Confirmed no DME needs. SW sent referral to [facility] for PT/OT/ST via [employer]. Plan: DC to son's house 01/30, [facility] PT/OT/ST ANGIE Syed
[2023-01-26] MEDS: Tamsulosin HCl 0.4 MG Capsule PO (16:59)
[2023-01-26 17:00] VITALS: BP 110/65; PULSE 85
--- NOTE | 2023-01-26 20:26 | PCM.DC.SUM ---
Providers Date of Admission: 01/04/23 Primary Care Physician: Dr. Wagner Gr MD Consultations 01/13/23 07:58 Consult: Gastroenterology Routine Consulting Provider: [facility] Reason for Consult: Anemia, positive stool guaiac. EMERGENT Consult: No MD Notified: Yes Date Notified: 01/13/23 Time Notified: 07:58 Method of Notification: Text Reason For Visit: POST OP CONSTIPATION Diagnosis Discharge Diagnosis (1) Postoperative ileus: Status: Resolved Code(s): K91.89 - Other postprocedural complications and disorders of digestive system; K56.7 - Ileus, unspecified Plan 87 year old male with below past medical history hospitalized for weakness, postoperative ileus, urinary retention, constipation, dehydration, admitted to TCU with debility, here for rehabilitation, strengthening, prior to discharge home alone. Debility - PT/OT. Pain - Tylenol 1000mg q6 prn pain (1-10). Bowel - Miralax 17gm daily, senna/colace 1 tablet bid, Magnesium citrate 300ml daily prn. Adult immunization - Administer pneumonia vaccine, covid19 vaccine, flu vaccine as appropriate. DVT prophylaxis - Hold, anemia. Coronary artery disease - Coreg 3.125mg bid, aspirin 81mg daily. Hyperlipidemia - Atorvastatin 40mg qhs. Hypothyroidism - Levothyroxine 88mcg daily. BPH - Finasteride 5mg daily, Tamsulosin 0.4mg daily, camacho out. Appetite loss - Mirtazapine 15mg qhs, stable use, GDR not recommended. Medications at Discharge Home Medications atorvastatin 40 mg tablet [address] Gr manages cholesterol #90 tabs 05/24/18 carvedilol 3.125 mg tablet 3.125 mg PO BID bp 01/29/20 dutasteride 0.5 mg capsule 0.5 mg PO DAILY prostate 12/08/22 levothyroxine 88 mcg tablet 88 mcg PO DAILY thyroid 12/26/22 polyethylene glycol 3350 17 gram oral powder packet 17 g PO DAILY bowels #30 ea 01/04/23 sennosides 8.6 mg-docusate sodium 50 mg tablet (Stool Softener-Stimulant Laxative) 1 tab PO BID bowels #60 tabs 01/04/23 acetaminophen 500 mg tablet 1,000 mg (2 x 500 mg) PO Q6H PRN PRN Pain Score 1-10 #0 tabs 01/26/23 aspirin 81 mg chewable tablet 81 mg PO BREAKFAST #0 tabs 01/26/23 mirtazapine 15 mg tablet 15 mg PO QHS mood/appetite 30 days #30 tabs 01/26/23 pantoprazole 40 mg tablet,delayed release 40 mg PO BID 30 days #60 tabs 01/26/23 polysaccharide iron complex 150 mg iron capsule (Ferrex) 150 mg PO DAILY 30 days #30 caps 01/26/23 tamsulosin 0.4 mg capsule 0.4 mg PO DAILY@1730 prostate 30 days #30 caps 01/26/23 Hospital Course Operations None Procedures EGD Summary of Care Provided Minutes Spent on Discharge: 35 Hospital Course: 87 year old male with below past medical history hospitalized for weakness, postoperative ileus, urinary retention, constipation, dehydration, admitted to TCU with debility, here for rehabilitation, strengthening, prior to discharge home alone. 01/16/2023 Dr. Busby EGD chronic gastritis, non-bleeding gastric ulcer treated with argon plasma coagulation. Discharge to son's house 01/30/2023, [facility] PT/OT/ST. Physical Exam Const alert General Appearance: cooperative HEENT normocephalic Eyes PERRL and EOMs intact bilaterally Neck supple, no JVD and no carotid bruits Resp normal respiratory effort, normal air movement and clear to auscultation bilaterally Cardio regular rate and regular rhythm GI normal to inspection, nondistended, normoactive bowel sounds, non-tender and non-distended Extremity normal capillary refill General Extremity: Negative for edema Skin no rashes or lesions noted General Skin Exam: no breakdown Psych affect normal Appearance: appropriate Weight / BMI Weight Weight: 74.899 kg Body Mass Index (BMI) 23.6 ABG / Lab / Microbiology Data 01/26/23 05:43 01/26/23 05:43 Laboratory: Laboratory Results - last 24 hr 01/26/23 05:43: WBC 4.5, RBC 3.32 L, Hgb 10.2 L, Hct 31.5 L, MCV 94.9 H, MCH 30.7, MCHC 32.4, RDW Std Deviation 52.5 H, RDW Coeff of Lamont 15.0 H, Plt Count 110 L, MPV 8.8, Immature Gran % (Auto) 0.400, Neut % (Auto) 12.2 L, Lymph % (Auto) 79.8 H, Barron % (Auto) 1.8, Eos % (Auto) 5.1 H, Baso % (Auto) 0.7, Absolute Neuts (auto) 0.6 L, Absolute Lymphs (auto) 3.60, Nucleated RBC % 0, Differential Comment SCANNED, Sodium 139, Potassium 4.4, Chloride 106, Carbon Dioxide 29.0, Anion Gap 4 L, BUN 31 H, Creatinine 0.98, Estim Creat Clear Calc 56.90, Est GFR (MDRD) Af Amer 94, Est GFR (MDRD) Non-Af 77, BUN/Creatinine Ratio 31.7 H, Glucose 140 H, Calcium 8.2 L Microbiology: Microbiology 01/18/23 05:32 Nasal Secretion SARS-CoV-2 Antigen (Rapid) - Final 01/15/23 05:56 Nasal Secretion SARS-CoV-2 Antigen (Rapid) - Final 01/13/23 03:00 Stool Stool Occult Blood (CONSTANTIN) - Final Occult Blood Positive 01/12/23 06:02 Nasal Secretion SARS-CoV-2 Antigen (Rapid) - Final 01/05/23 15:58 Blood Culture (Wb) - Anticubital Right Blood Culture - Final No growth in 5 days. 01/05/23 16:03 Blood Culture (Wb) - Right Forearm Blood Culture - Final No growth in 5 days. 01/09/23 06:00 Nasal Secretion SARS-CoV-2 Antigen (Rapid) - Final 01/05/23 16:15 Urine, Catheterized Urine Culture - Final Pseudomonas putida 01/06/23 07:55 Mucosa - Nasopharyngeal Respiratory Panel (PCR) - Final 01/06/23 06:00 Nasal Secretion SARS-CoV-2 Antigen (Rapid) - Final D/C Instructions Discharge Diet: No restrictions Discharge Activity: Return to Normal Activity, May Shower and Use Walker Weight Bearing Status: Weight bearing as tolerated Call your doctor if you observe: Fever of 101 or Higher, Inability to urinate, Inability to have a bowel movement, Shortness of breath, Dizziness, Fainting spells, Swelling in the ankles, Chest pain and Uncontrolled pain Additional Instructions: Discharge to son's house 01/30/2023, [facility] PT/OT/ST. Please Follow Up With: Wagner Gr MD When: Within 1 week. Meaningful Use Info Meaningful Use Diagnoses (Choose all that apply): None applicable Discharge Plan Admission Admit Date/Time: 01/04/23 16:57 Primary Reason for Your Visit: Debility. Attending Provider: Andrea Seymour Chi Primary Care Provider: Wagner Gr Instructions Additional Instructions / Restrictions: Discharge to ana paula's house 01/30/2023, [facility] PT/OT/ST. Discharge Orders/Prescriptions Prescriptions: New polysaccharide iron complex [Ferrex 150] 150 mg iron Capsule 150 mg PO DAILY 30 Days Qty: 30 0RF acetaminophen 500 mg Tablet 1,000 mg PO Q6H PRN PRN (Reason: Pain Score 1-10) Qty: 0 0RF pantoprazole 40 mg Tablet,Delayed Release (Dr/Ec) 40 mg PO BID 30 Days Qty: 60 0RF aspirin 81 mg Tablet,Chewable 81 mg PO BREAKFAST Qty: 0 0RF Continued carvedilol 3.125 MG tablet 3.125 mg PO BID dutasteride 0.5 mg capsule 0.5 mg PO DAILY levothyroxine 88 mcg tablet 88 mcg PO DAILY polyethylene glycol 3350 17 gram Powder In Packet 17 g PO DAILY Qty: 30 2RF sennosides-docusate sodium [Stool Softener-Stimulant Laxat] 8.6-50 mg Tablet 1 tab PO BID Qty: 60 2RF tamsulosin 0.4 mg Capsule 0.4 mg PO DAILY@1730 30 Days Qty: 30 1RF mirtazapine 15 mg Tablet 15 mg PO QHS 30 Days Qty: 30 1RF atorvastatin 40 mg tablet 40 mg PO QHS Qty: 90 3RF Discontinued aspirin 81 MG tablet 81 mg PO DAILY@0800 Referrals / Follow Up: Wagner Gr MD [Primary Care Provider] - Disposition Disposition (needs filled in before D/C Order can be placed): Home Health Service
[2023-01-26] MEDS: Atorvastatin Calcium 40 MG Tablet PO (20:29)
[2023-01-26] MEDS: Mirtazapine 15 MG Tablet PO (20:29)
[2023-01-26 20:31] VITALS: PULSE 66; RESP 16; O2SAT 96
[2023-01-27] MEDS: Levothyroxine 88 MCG Tablet PO (05:22)
[2023-01-27] MEDS: Aspirin 81 MG TAB.CHEW PO (08:05)
[2023-01-27] MEDS: Carvedilol 3.125 MG TABLET PO ×2 (08:06→17:03)
[2023-01-27] MEDS: Pantoprazole Sodium 40 MG Tablet PO ×2 (10:15→20:53)
[2023-01-27] MEDS: Iron Polysaccharide Complex 150 MG CAPSULE PO (10:15)
[2023-01-27] MEDS: Finasteride 5 MG Tablet PO (10:16)
[2023-01-27] MEDS: Miconazole Nitrate 43 GM Bottle 1 APPLIC TOPICAL ×2 (10:20→20:53)
[2023-01-27] MEDS: Menthol/Lanolin/Calamine/Znox 113 GM Tube 1 APPLIC TOPICAL ×2 (10:20→20:54)
[2023-01-27 14:36] VITALS: BP 108/65; PULSE 73; RESP 16; TEMP 36.4; O2SAT 98
[2023-01-27] MEDS: Tamsulosin HCl 0.4 MG Capsule PO (17:04)
[2023-01-27] MEDS: Atorvastatin Calcium 40 MG Tablet PO (20:54)
[2023-01-27] MEDS: Mirtazapine 15 MG Tablet PO (20:54)
[2023-01-27] MEDS: Senna/Docusate Sodium 1 Tablet PO (20:54)
[2023-01-27 22:00] VITALS: PULSE 68; RESP 16; O2SAT 96
[2023-01-28] MEDS: Levothyroxine 88 MCG Tablet PO (05:07)
[2023-01-28] MEDS: Iron Polysaccharide Complex 150 MG CAPSULE PO (09:50)
[2023-01-28] MEDS: Miconazole Nitrate 43 GM Bottle 1 APPLIC TOPICAL ×2 (09:50→20:49)
[2023-01-28] MEDS: Aspirin 81 MG TAB.CHEW PO (09:50)
[2023-01-28] MEDS: Carvedilol 3.125 MG TABLET PO ×2 (09:50→17:00)
[2023-01-28] MEDS: Senna/Docusate Sodium 1 Tablet PO ×2 (09:51→20:51)
[2023-01-28] MEDS: Finasteride 5 MG Tablet PO (09:51)
[2023-01-28] MEDS: Pantoprazole Sodium 40 MG Tablet PO ×2 (09:51→20:50)
[2023-01-28] MEDS: Menthol/Lanolin/Calamine/Znox 113 GM Tube 1 APPLIC TOPICAL ×2 (14:17→20:49)
[2023-01-28 14:36] VITALS: BP 112/57; PULSE 75; RESP 17; TEMP 36.3; O2SAT 97
[2023-01-28] MEDS: Tamsulosin HCl 0.4 MG Capsule PO (16:59)
[2023-01-28] MEDS: Mirtazapine 15 MG Tablet PO (20:51)
[2023-01-28] MEDS: Atorvastatin Calcium 40 MG Tablet PO (20:51)
[2023-01-29] MEDS: Levothyroxine 88 MCG Tablet PO (05:26)
[2023-01-29] MEDS: Aspirin 81 MG TAB.CHEW PO (08:53)
[2023-01-29] MEDS: Pantoprazole Sodium 40 MG Tablet PO ×2 (08:53→22:15)
[2023-01-29] MEDS: Iron Polysaccharide Complex 150 MG CAPSULE PO (08:53)
[2023-01-29] MEDS: Carvedilol 3.125 MG TABLET PO ×2 (08:54→18:05)
[2023-01-29] MEDS: Polyethylene Glycol 3350 17 GM PACKET PO (08:54)
[2023-01-29] MEDS: Senna/Docusate Sodium 1 Tablet PO ×2 (08:54→22:15)
[2023-01-29] MEDS: Finasteride 5 MG Tablet PO (08:54)
[2023-01-29 14:13] VITALS: BP 123/69; PULSE 75; RESP 16; TEMP 36.6; O2SAT 97
[2023-01-29] MEDS: Tamsulosin HCl 0.4 MG Capsule PO (18:05)
[2023-01-29] MEDS: Mirtazapine 15 MG Tablet PO (22:15)
[2023-01-29] MEDS: Miconazole Nitrate 43 GM Bottle 1 APPLIC TOPICAL (22:15)
[2023-01-29] MEDS: Atorvastatin Calcium 40 MG Tablet PO (22:15)
[2023-01-29] MEDS: Menthol/Lanolin/Calamine/Znox 113 GM Tube 1 APPLIC TOPICAL (22:16)
[2023-01-30] MEDS: Levothyroxine 88 MCG Tablet PO (06:07)
[2023-01-30 06:14] VITALS: BP 133/70; PULSE 65; RESP 16; TEMP 36.6; O2SAT 96
[2023-01-30 06:15] VITALS: O2SAT 96
[2023-01-30] MEDS: Polyethylene Glycol 3350 17 GM PACKET PO (08:06)
[2023-01-30] MEDS: Finasteride 5 MG Tablet PO (08:06)
[2023-01-30] MEDS: Senna/Docusate Sodium 1 Tablet PO (08:06)
[2023-01-30] MEDS: Menthol/Lanolin/Calamine/Znox 113 GM Tube 1 APPLIC TOPICAL (08:07)
[2023-01-30] MEDS: Pantoprazole Sodium 40 MG Tablet PO (08:07)
[2023-01-30] MEDS: Iron Polysaccharide Complex 150 MG CAPSULE PO (08:07)
[2023-01-30] MEDS: Carvedilol 3.125 MG TABLET PO (08:07)
[2023-01-30] MEDS: Miconazole Nitrate 43 GM Bottle 1 APPLIC TOPICAL (08:07)
[2023-01-30] MEDS: Aspirin 81 MG TAB.CHEW PO (08:07)
[2023-01-30 10:02] VITALS: BP 111/62; PULSE 64; RESP 18; TEMP 36.2; O2SAT 95
--- NOTE | 2023-01-30 11:09 | CASEMGMT ---
Social Work BIMS and PHQ-9 completed for MDS assessment. Catie Jones DRAW FIRE OPERATOR SOFTWARE TOOLS ENGINEER
== END 2023-01-30 10:05 | disposition home health service (06) | DRG 393 ==
PROVIDERS: Admitting Provider Family Medicine Geriatric Medicine; PCP Family Medicine; Referring Provider Family Medicine Geriatric Medicine; Visit Provider Family Medicine Geriatric Medicine
DX: K91.89 Other postprocedural complications and disorders of digestive system (principal); J18.9 Pneumonia, unspecified organism; B37.0 Candidal stomatitis; K56.7 Ileus, unspecified; N39.0 Urinary tract infection, site not specified; D63.8 Anemia in other chronic diseases classified elsewhere; E11.42 Type 2 diabetes mellitus with diabetic polyneuropathy; E03.9 Hypothyroidism, unspecified; I10 Essential (primary) hypertension; E78.00 Pure hypercholesterolemia, unspecified; I25.10 Atherosclerotic heart disease of native coronary artery without angina pectoris; K29.50 Unspecified chronic gastritis without bleeding; B96.5 Pseudomonas (aeruginosa) (mallei) (pseudomallei) as the cause of diseases classified elsewhere; R33.8 Other retention of urine; Z86.16 Personal history of COVID-19; Z79.82 Long term (current) use of aspirin; Z87.891 Personal history of nicotine dependence; N40.1 Benign prostatic hyperplasia with lower urinary tract symptoms; Z79.899 Other long term (current) drug therapy; K25.9 Gastric ulcer, unspecified as acute or chronic, without hemorrhage or perforation; Z23 Encounter for immunization
CPT/HCPCS: 36415; 71046; 74018; 80048; 80053; 80170; 81001; 82274; 83605; 85014; 85018; 85025; 85652; 86140; 86850; 86900; 86901; 86920; 86922; 87040; 87077; 87086; 87088; 87184; 87186; 87633; 87811; 92507; 92523; 97110; 97116; 97129; 97130; 97162; 97166; 97530; 97535; J7030; J7050; J7120; A4216

== ENCOUNTER → 2023-01-06 | Outpatient (CLI) | payer MEDICARE, SELFPAY ==
--- NOTE | 2023-01-06 08:49 | CT_ITS ---
STUDY: CT ABDOMEN AND PELVIS WITH CONTRAST REASON FOR EXAM: Male, 87 years old. R/O SMALL BOWEL OBSTRUCTION RADIATION DOSAGE (If Supplied By Facility): CTDIvol = ( 14.64 ) mGy, DLP = ( 873.11 ) mGycm TECHNIQUE: Transaxial images were obtained from the dome of the diaphragm to the symphysis pubis with oral contrast. Oral and amp; IV Readi-CAT and amp; 100mL Isovue-370 was administered. Sagittal and coronal images were reconstructed. Individualized dose optimization techniques were used for this CT. COMPARISON: Comparison is made with prior study dated December 23, 2022. FINDINGS: Increased markings at the lung bases suggestive of atelectasis. Carotid artery calcification. There is a 1.2 cm right retrocrural lymph node. There is decreased attenuation of the liver consistent with steatosis. Normal gallbladder and extrahepatic biliary system. Normal spleen. There is diffuse atrophy of the pancreas. Normal bilateral adrenal glands. Normal right kidney. Normal left kidney. There is a small hiatal hernia. Minimal dilatation of the several small bowel loops although no definite obstruction is seen. Large amount of fecal material is seen in the right hemicolon. Heterogeneous appearance of the sigmoid colon in the left lower quadrant. Inflammatory process should be ruled out. If the patient has had a recent catheterization, this may represent a resolving hematoma. Clinical correlation is recommended. There is diffuse atherosclerotic calcification of the abdominal aorta and its major visceral branches. Stable mild dilatation of the distal abdominal aorta. Normal inferior vena cava. There is retroperitoneal lymphadenopathy with enlarged nodes greater than 10-15mm in the short axis. This is unchanged. Stable small mesenteric adenopathy. Mild degree of bladder wall thickening especially along its base. Enlarged and heterogeneous appearance of the prostate with indentation at the bladder base. There is evidence of prior TURP. Mildly enlarged bilateral inguinal hernias. There are diffuse degenerative changes of the visualized lumbar spine. CT/Abdomen/Pelvis WITH Contrast IMPRESSION: Heterogeneous enlargement of the prostate with indentation of the bladder base. Mild degree of bladder wall thickening more prominent at the right lung base. A small air-fluid level is seen within the anterior bladder. This may represent either catheterization with a Mills catheter versus possible colovesical fistula. Heterogeneous appearance of the sigmoid colon and left hemipelvis as described. Inflammatory process should be ruled out. If the patient has a history of recent catheterization, this may represent resolving hematoma. Mild dilatation of small bowel loops although no definite obstruction is seen at this time. Moderate amount of fecal material is seen in the colon. Electronically Signed: Sudhakar Shelby MD at 15:28 EDT ,
== END | disposition home or self-care (01) ==
LOC: CT 08:47
PROVIDERS: PCP Family Medicine; Referring Provider Family Medicine Geriatric Medicine; Visit Provider Family Medicine Geriatric Medicine
DX: N40.0 Benign prostatic hyperplasia without lower urinary tract symptoms (principal); K44.9 Diaphragmatic hernia without obstruction or gangrene; I65.29 Occlusion and stenosis of unspecified carotid artery; R59.0 Localized enlarged lymph nodes; K40.20 Bilateral inguinal hernia, without obstruction or gangrene, not specified as recurrent
CPT/HCPCS: 74177

== ENCOUNTER 2023-01-12 09:02 | Outpatient (CLI) | payer MEDICARE, SELFPAY ==
[2023-01-12] VITALS (7 sets, daily range): BP systolic 111–130; BP diastolic 55–82; PULSE 61–78; RESP 16–18; TEMP 36.2–36.7; O2SAT 96–98; BMI 24.5
[2023-01-12] MEDS: 0.9% Normal Saline (500mL Bag) 500 ML 15 ML IV (11:55)
[2023-01-12] MEDS: Furosemide 20 MG/2 ML VIAL IV (11:55)
[2023-01-12] MEDS: 0.9% NaCl Peripheral Flush Adult/Peds IV ×3 (11:56→15:15)
== END 2023-01-12 09:03 | disposition home or self-care (01) ==
LOC: MEDOUTP 09:03
PROVIDERS: PCP Family Medicine; Referring Provider Family Medicine Geriatric Medicine; Visit Provider Family Medicine Geriatric Medicine
DX: Z48.815 Encounter for surgical aftercare following surgery on the digestive system (principal)
CPT/HCPCS: 36415; 36430; 86850; 86900; 86901; 86920; 86922; J7040; P9016; A4216; J1940

== ENCOUNTER 2023-01-16 10:33 | Day surgery (SDC) | payer MEDICARE, SELFPAY ==
[2023-01-16] VITALS (10 sets, daily range): BP systolic 83–124; BP diastolic 51–73; PULSE 64–69; RESP 16; TEMP 36.6–37.3; O2SAT 95–98; BMI 24.7
--- NOTE | 2023-01-16 10:52 | PCM.HP.BLA ---
History and Physical Date of Admission: 01/16/23 ERMELINDA DIEGO, is a 87-year-old male status post laparoscopic bilateral herniorrhaphy with Dr. Gross was readmitted for recurrent postoperative urinary retention, postoperative constipation, and general debility. He was diagnosed with postoperative ileus. This was presumed secondary to recent laparoscopic bilateral inguinal hernia repair on 12/27. General surgery followed. KUB on admit showed mild constipation with no concern for ileus or SBO. Repeat KUB on 01/01 showed multiple dilated small bowel loops suspicious for SBO. Per surgery, imaging findings were most consistent with ileus and did not show a bowel obstruction. KUB on 01/02 showed mildly improved but persistent gaseous distention of small bowel loops. Had large bowel movement overnight on 01/02. He was advanced to a regular diet by 01/04 without issue. Daily MiraLAX and senna were started during admission, will continue these on discharge. Per surgery, can plan for office follow-up in 2 weeks. He was also discovered to have acute on chronic anemia that was presumed secondary to recent surgery. Baseline hemoglobin between and . Hemoglobin 8.6 on admit, down trended to 7.2 on 01/02 but then improved back to 8.6 on 01/03 Iron studies consistent with anemia of chronic disease. I was consulted because his hemoglobin stays persistently low. He does not know if he has had a colonoscopy in the past. He does take a daily 81 mg aspirin. [facility] Medical History (Updated 01/05/23 @ 00:01 by Background Daemon) Acute on chronic anemia Aneurysm of infrarenal abdominal aorta Anxiety Arthritis Atherosclerotic heart disease of [place] coronary artery without angina pectoris Cancer Cardiology follow-up encounter Dementia Depression Essential hypertension Former smoker Gastric reflux Hard of hearing High cholesterol History of echocardiogram History of lateral wall myocardial infarction Left ventricular systolic dysfunction Lymphoma Memory deficit Pneumonia due to COVID-19 virus Pure hypercholesterolemia Stented coronary artery (~02/22/16) Thrombocytopenia Thyroid disease Type 2 diabetes mellitus Type 2 diabetes mellitus with hyperglycemia Urinary retention Wears glasses Wears hearing aid Wears partial dentures Home Medications atorvastatin 40 mg tablet [address] Gr manages cholesterol #90 tabs 05/24/18 [Rx Last Taken 01/03/23] carvedilol 3.125 mg tablet 3.125 mg PO BID bp 11/11/20 [History Last Taken 01/04/23] aspirin 81 mg tablet,delayed release 81 mg PO DAILY@0800 [facility]ART [facility] 03/09/20 [History Last Taken 01/04/23] dutasteride 0.5 mg capsule 0.5 mg PO DAILY prostate 12/08/22 [History Last Taken Unknown] levothyroxine 88 mcg tablet 88 mcg PO DAILY thyroid 12/26/22 [History Last Taken 12/30/22] mirtazapine 15 mg tablet 15 mg PO QHS mood/appetite 90 days #90 tabs 01/04/23 [Rx Last Taken Unknown] polyethylene glycol 3350 17 gram oral powder packet 17 g PO DAILY bowels #30 ea 01/04/23 [Rx Last Taken Unknown] sennosides 8.6 mg-docusate sodium 50 mg tablet (Stool Softener-Stimulant Laxative) 1 tab PO BID bowels #60 tabs 01/04/23 [Rx Last Taken 01/04/23] tamsulosin 0.4 mg capsule 0.4 mg PO DAILY@1730 prostate 90 days #90 caps 01/04/23 [Rx Last Taken Unknown] Allergy/AdvReac Type Severity Reaction Status Date / Time Penicillins Allergy Hives Verified 12/30/22 20:57 tree and shrub pollen Allergy Other Verified 12/30/22 20:57 lisinopril AdvReac Mild cough Verified 12/30/22 20:57 Family History Father , age 39 from [place] CAD (coronary artery disease) Myocardial infarction Sudden cardiac deathMother Diabetes Surgical History (Updated 01/05/23 @ 00:01 by [facility] Dadottie) History of appendectomy History of left heart catheterization Hx of bilateral cataract extraction Hx of cystoscopy Hx of tonsillectomy Presence of coronary angioplasty implant and graft (~02/22/16) S/P inguinal hernia repair Social History (Updated 01/04/23 @ 21:[address] Andrea Seymour MD) household members: none Smoking Status: Former smoker how long ago did patient quit smokin years ago alcohol intake: current alcohol intake frequency: a few times a week Alcohol type: beer substance use type: does not use caffeine: Yes Type: coffee Number of servings: 2 ROS Constitutional Constitutional: Denies chills, fever(s) or weight gain ENT HEENT: Denies headache(s), nasal congestion or nasal discharge Cardiovascular Cardiovascular: Denies chest pain or palpitations Respiratory/Chest Respiratory/Chest: Denies cough, excessive phlegm production or shortness of breath with exertion Gastrointestinal Gastrointestinal: Denies abdominal pain, nausea or vomiting Genitourinary Genitourinary: Denies dysuria Musculoskeletal Musculoskeletal: Denies joint pain or joint swelling Integumentary Integumentary: Denies rash or wounds Neurologic Neurologic: Denies focal weakness, numbness or tingling Psychiatric Psychiatric: Denies anxiety, auditory hallucinations, depression, homicidal ideation or suicidal ideation Physical Exam Const alert General Appearance: cooperative HEENT normocephalic Eyes PERRL and EOMs intact bilaterally Neck supple, no JVD and no carotid bruits Resp normal respiratory effort, normal air movement and clear to auscultation bilaterally Cardio regular rate and regular rhythm GI normal to inspection, nondistended, normoactive bowel sounds, non-tender and non-distended Extremity normal capillary refill General Extremity: Negative for edema Skin no rashes or lesions noted General Skin Exam: no breakdown Psych affect normal Appearance: appropriate Lab / Micro Data 01/13/23 15:51 01/12/23 06:01 Labs: Laboratory Results - last 24 hr 01/12/23 22:48: Gentamicin Peak 3.7 L 01/13/23 15:51: Hgb 9.2 L, Hct 29.2 L Micro: Microbiology 01/13/23 03:00 Stool Stool Occult Blood (CONSTANTIN) - Final Occult Blood Positive Assessment & Plan Assessment/Plan (1) Postoperative ileus: PLAN: Plan Patient is an 87-year-old male with history of debility, urinary retention, anemia, hypothyroidism, type 2 diabetes, CAD, hypertension, cognitive impairment and recent laparoscopic bilateral inguinal hernia repair (12/27/2022) who presented to [facility] ED on 12/30/2022 with worsening weakness and constipation. Acute on chronic anemia that is presumed to be secondary to recent surgery. Baseline hemoglobin between 10 and 11. Hemoglobin 8.6 on admit, down trended to 7.2 on 01/02 but then improved to 8.6 on 01/03, have suspicion the hemoglobin reading on 01/02 was erroneous. Iron studies consistent with anemia of chronic disease. Also in the differential diagnosis would be peptic ulcer disease, H. pylori associated gastritis, Jabari's erosions, telangiectasias, neoplasia. I think he would benefit from an upper endoscopy and if that is negative when he can handle a colon prep possible a colonoscopy. The plan would be for him to undergo an upper endoscopy on Monday01/16/23 unless his hgb continues to drop. I have examined the patient and the H&P has been reviewed. There are no clinical changes since date of exam.
[2023-01-16] MEDS: Lactated Ringers 1,000 ML 15 ML IV (10:55)
[2023-01-16 11:21] LABS: Bedside Glucose 108 mg/dL (74-106)
--- NOTE | 2023-01-16 11:30 | IMM_PTH ---
PATIENT: ERMELINDA DIEGO LOC: [facility] U#:[id number] AGE/SX: 87/M ROOM: RE01/16/[address]: Dr. Leonard Busby DO : 1935 BED: DIS: 01/16/2023 SPEC #: [id number] RECD: 01/17/23 13:33 STATUS: TANNER REQ #: [id number] RHONDA: 01/16/23 11:[address]: Leonard Busby DEPT: IMMUNOHISTOCHEMISTRY RECD BY: Shruthi Huff ENTERED: 01/17/23 13:33 SP TYPE: IMMUNO OTHR DR: Dr. Wagner Gr MD Tissues: Stomach, NOS Procedures: H Pylori (initial) PHYSICIAN & INSTITUTION [place] [id number] SPECIMEN INFORMATION: Tissue Source: Gastric body Clinical Info: Postoperative ileus, anemia Specimen Number: [id number] CPT code: 97610 METHODOLOGY: Deparaffinized sections of prefer/formalin-fixed tissue or PAP/DQ stained slides are incubated with monoclonal/polyclonal antibodies/oligonucleotide probes. Localization is made via biotin free immunoperoxidase method. Appropriate controls are performed and reacted as expected. Results on target cell population are indicated in the following table: RESULTS: ANTIBODY / CLONE RESULT H Pylori (polyclonal) negative These tests were developed and their performance characteristics determined by [facility]. They may not have been cleared or approved by the U.S. Food and Drug Administration. The FDA has determined that such clearance or approval is not necessary. The above immunohistochemical/dualISH markers are ordered and reviewed by the Pathologist. INTERPRETATION: Gastric body, biopsy: Negative for Helicobacter pylori organisms. AM:crow 01/18/2023
--- NOTE | 2023-01-16 11:30 | EGD_PTH ---
PATIENT: ERMELINDA DIEGO LOC: [facility] U#:[id number] AGE/SX: 87/M ROOM: RE01/16/[address]: Dr. Leonard Busby DO : 1935 BED: DIS: 01/16/2023 SPEC #: [id number] RECD: 01/16/23 14:37 STATUS: TANNER REAurea #: [id number] RHONDA: 01/16/23 11:[address]: Leonard Busby DEPT: SURGICAL PATHOLOGY RECD BY: Nidhi Zapata ENTERED: 01/17/23 08:55 SP TYPE: EGD BIOPSY [facility] DR: Dr. Wagner Gr MD Tissues: Gastric mucous membrane Procedures: Surgery Specimen Level IV HEADER OPERATION: EGD with biopsy PRE-OP DIAGNOSIS: Postoperative ileus, anemia TISSUE SUBMITTED: Gastric body biopsy MICROSCOPIC DIAGNOSIS Gastric body, biopsy: Chronic gastritis. Focal changes suggestive of fundic gland polyp. See comment. AM:crow 01/18/2023 COMMENT The results of immunohistochemistry for Helicobacter pylori will be reported separately ([id number]). MICROSCOPIC DESCRIPTION Slides are reviewed. GROSS DESCRIPTION Received in fixative is one container labeled with the patient's name and designated gastric body biopsy. The specimen consists of multiple irregular fragments of light lamb soft tissue that in aggregate measure 1.0 x 0.4 x 0.1 cm. The specimen is totally submitted in one cassette. / SJ:crow 01/17/2023 TC:3 CPT: 45349
--- NOTE | 2023-01-16 11:58 | OP.EGD_ITS ---
Patient Name: John Contreras Procedure Date: 01/16/2023 11:30 AM Date of : 1935 Age: 87 Procedure: Upper GI endoscopy Indications: Iron deficiency anemia Providers: Leonard Busby DO Medicines: Monitored Anesthesia Care Patient Profile: This is an 87 year old male. Refer to note in patient chart for documentation of history and physical. Patient has symptoms of chronic abdominal distention. Complications: No immediate complications. Procedure: Pre-Anesthesia Assessment: - Prior to the procedure, a History and Physical was performed, and patient medications and allergies were reviewed. The risks and benefits of the procedure and the sedation options and risks were discussed with the patient. All questions were answered and informed consent was obtained. Patient identification and proposed procedure were verified by the physician. Mental Status Examination: alert and oriented. Airway Examination: normal oropharyngeal airway and neck mobility. Respiratory Examination: clear to auscultation. CV Examination: normal. Prophylactic Antibiotics: The patient does not require prophylactic antibiotics. Prior Anticoagulants: The patient has taken no anticoagulant or antiplatelet agents. ASA Grade Assessment: III - A patient with severe systemic disease. After reviewing the risks and benefits, the patient was deemed in satisfactory condition to undergo the procedure. The anesthesia plan was to use monitored anesthesia care (MAC). Immediately prior to administration of medications, the patient was re-assessed for adequacy to receive sedatives. The heart rate, respiratory rate, oxygen saturations, blood pressure, adequacy of pulmonary ventilation, and response to care were monitored throughout the procedure. The physical status of the patient was re-assessed after the procedure. After obtaining informed consent, the endoscope was passed under direct vision. Throughout the procedure, the patient's blood pressure, pulse, and oxygen saturations were monitored continuously. The gastroscope was introduced through the mouth, and advanced to the second part of duodenum. The upper GI endoscopy was accomplished without difficulty. The patient tolerated the procedure well. Scope In: 11:46:53 AM Scope Out: 11:51:13 AM Total Procedure Duration Time 0 hours 4 minutes 20 seconds Findings: The examined esophagus was normal. Diffuse severe inflammation characterized by congestion (edema), erosions, erythema and friability was found in the gastric body. Biopsies were taken with a cold forceps for histology. Verification of patient identification for the specimen was done. Estimated blood loss was minimal. Biopsies were taken with a cold forceps for Helicobacter pylori testing. Verification of patient identification for the specimen was done. Estimated blood loss was minimal. One non-bleeding linear gastric ulcer with no stigmata of bleeding was found in the gastric antrum. The lesion was 6 mm in largest dimension. Coagulation for bleeding prevention using argon plasma at 0.3 liters/minute and 20 donohue was successful. Estimated blood loss was minimal. No gross lesions were noted in the second portion of the duodenum. Impression: - Normal esophagus. - Chronic gastritis. Biopsied. - Non-bleeding gastric ulcer with no stigmata of bleeding. Treated with argon plasma coagulation (APC). - No gross lesions in the second portion of the duodenum. Recommendation: - Return patient to hospital mtz for ongoing care. - Resume regular diet. - Use Protonix (pantoprazole) 40 mg PO BID. - Continue present medications. Procedure Code(s): --- Professional --- 61016, 59, Esophagogastroduodenoscopy, flexible, transoral; with control of bleeding, any method 14087, 51, Esophagogastroduodenoscopy, flexible, transoral; with biopsy, single or multiple CPT copyright 2021 [employer]. All rights reserved. The codes documented in this report are preliminary and upon group work program director review may be revised to meet current compliance requirements. Leonard Busby DO 01/16/2023 11:57:57 AM This report has been signed electronically. Number of Addenda: 0 Note Initiated On: 01/16/2023 11:30 AM
--- NOTE | 2023-01-16 11:58 | OP.CCLET_ITS ---
01/16/2023 Wagner Gr [address] [place] [address] Re : Upper GI endoscopy procedure for John Contreras Dear Dr. Gr This procedure was performed on Monday, January 16, 2023. My impressions and recommendations are as follows: Impressions : - Normal esophagus. - Chronic gastritis. Biopsied. - Non-bleeding gastric ulcer with no stigmata of bleeding. Treated with argon plasma coagulation (APC). - No gross lesions in the second portion of the duodenum. Recommendations : - Return patient to hospital mtz for ongoing care. - Resume regular diet. - Use Protonix (pantoprazole) 40 mg PO BID. - Continue present medications. My findings are described in the full procedure note, which is enclosed. If I can be of further assistance, please feel free to contact me at . Sincerely, Leonard Busby, 01/16/2023 11:57:57 AM This report has been signed electronically.
== END 2023-01-16 12:55 | disposition home or self-care (01) ==
LOC: SDC 10:35 → AC 10:37
PROVIDERS: PCP Family Medicine; Referring Provider Internal Medicine Gastroenterology; Visit Provider Internal Medicine Gastroenterology
PROC: 0DJ08ZZ Inspection of Upper Intestinal Tract, Via Natural or Artificial Opening Endoscopic (ICD-10-PCS; CPT 43235; principal; 2023-01-16 11:25)
DX: K29.50 Unspecified chronic gastritis without bleeding (principal); K56.7 Ileus, unspecified; E11.9 Type 2 diabetes mellitus without complications; E78.00 Pure hypercholesterolemia, unspecified; Z87.891 Personal history of nicotine dependence; K25.9 Gastric ulcer, unspecified as acute or chronic, without hemorrhage or perforation; D50.9 Iron deficiency anemia, unspecified; I25.10 Atherosclerotic heart disease of native coronary artery without angina pectoris; I10 Essential (primary) hypertension; N99.89 Other postprocedural complications and disorders of genitourinary system; K91.89 Other postprocedural complications and disorders of digestive system; E03.9 Hypothyroidism, unspecified; Z98.890 Other specified postprocedural states; Z87.19 Personal history of other diseases of the digestive system
CPT/HCPCS: 43255; 43239; 82962; 88305; 88342; J2405

== ENCOUNTER → 2023-02-20 | Outpatient (CLI) | payer MEDICARE, SELFPAY | END | disposition home or self-care (01) | PROVIDERS: PCP Family Medicine; Visit Provider Dermatology | DX: T81.40XA Infection following a procedure, unspecified, initial encounter (principal); X58.XXXA Exposure to other specified factors, initial encounter | CPT/HCPCS: 87070; 87077; 87205 ==

== ENCOUNTER → 2023-04-11 | Outpatient (CLI) | payer MEDICARE, SELFPAY ==
--- OUTSIDE RECORDS SUMMARY | 2023-04-11 11:56 | XMS RPT_ITS | CCD ---
Author Name Unknown Address [id number] [place] [address] Organization [facility] Care Team Providers Care Office Services Specialist Name Role Phone Vuong, Juana Unavailable Unavailable DeFinis, Harumi Y Unavailable Unavailable Kaz Vuongi Unavailable Unavailable Aleksandra RN, Shelbie Brock Unavailable Unavailable Aleksandra RN, Shelbie A Unavailable Unavailable Aleksandra RN, Shelbie Brock Unavailable Unavailable Herminio Gr MD Primary Care Provider Herminio Gr MD Primary Care Provider Herminio Gr MD Primary Care Provider HERMINIO GR Primary Care Unavailable JUJU TIM Attending Unavailable HERMINIO GR Primary Care Unavailable JUJU TIM Attending Unavailable HERMINIO GR Primary Care Unavailable HERMINIO GR Attending Unavailable HERMINIO GR Primary Care Unavailable HERMINIO GR Attending Unavailable HERMINIO GR Primary Care Unavailable JUJU TIM Referring Unavailable HERMINIO GR Primary Care Unavailable NICOL FARIA Attending Unavailable HERMINIO GR Primary Care Unavailable HERMINIO GR Primary Care Unavailable HERMINIO GR Primary Care Unavailable HERMINIO GR Primary Care Unavailable HERMINIO GR Primary Care Unavailable HERMINIO GR Referring Unavailable HERMINIO GR Primary Care Unavailable NICOL FARIA Attending Unavailable HERMINIO GR Primary Care Unavailable HERMINIO GR Primary Care Unavailable HERMINIO GR Attending Unavailable HERMINIO GR Primary Care Unavailable HERMINIO GR Referring Unavailable CHAPIN DAWN Attending Unavailable HERMINIO GR Primary Care Unavailable CHAPIN DAWN Referring Unavailable HERMINIO GR Primary Care Unavailable CHAPIN DAWN Referring Unavailable HERMINIO GR Primary Care Unavailable LEXI BLANDON Attending Unavailable HERMINIO GR Primary Care Unavailable LEXI BLANDON Referring Unavailable HERMINIO GR Primary Care Unavailable HERMINIO GR Primary Care Unavailable HERMINIO GR Referring Unavailable CHAPIN DAWN Attending Unavailable MONIQUE JO Referring Unavailable SOPHYHERMINIO WELLS Primary Care Unavailable Allergies Allergy Classification Reported Allergen(s) Allergy Type Date of Onset Reaction(s) Facility (20 sources) lisinopril; Translations: [LISINOPRIL] drug allergy 7 Intolerance [facility] Work Phone: [phone] (6 sources) Penicillins (Antibiotic) drug allergy 7 Hives [facility] Work Phone: [phone] (20 sources) Aspirin; Translations: [ASPIRIN] Drug Allergy 8 Other: See Comments [facility] (20 sources) Penicillin G; Translations: [PENICILLIN G] Drug Allergy 1 [facility] (20 sources) Tree; Translations: [TREES] Allergy to substance 4 Other: See Comments [facility] Medications Current Medications Medication Drug Class(es) Dates Sig (Normalized) Sig (Original) cephalexin 500 mg oral capsule (2 sources) Cephalosporin Antibacterial Start: 07-11-2021 End: 07-18-2021 take 1 capsule by mouth three times daily cephALEXin (KEFLEX) 500 mg capsule Take 1 capsule by mouth three times daily for 7 days. 21 capsule 0 07/11/2021 07/18/2021 Active Completed/Discontinued Medications Medication Drug Class(es) Dates Sig (Normalized) Sig (Original) ALPRAZolam 0.25 mg oral tablet (1 source) Benzodiazepine Start: 11-11-2022 End: 11-11-2022 take 1 tablet by mouth once ALPRAZolam (XANAX) 0.25 mg tablet Indications: Situational anxiety Take 1 tablet by mouth one time only for 1 dose. Given prior to MRI if with significant anxiety 2 tablet 0 11/11/2022 11/11/2022 Problems Active Problems Problem Classification Problem Date Documented Da te Episodic/Chronic Abdominal pain (1 source) Abdominal pain; Translations: [Unspecified abdominal pain] 12-23-2022 Episodic Acquired foot deformities (2 sources) Hammer toe; Translations: [Other hammer toe(s) (acquired), right foot] Onset: 3 Chronic Acute myocardial infarction (6 sources) Acute ST segment elevation myocardial infarction involving left anterior descending coronary artery; Translations: [ST elevation (STEMI) myocardial infarction involving left anterior descending coronary artery] Onset: 6 03-25-2016 Chronic Anxiety disorders (5 sources) Generalized anxiety disorder; Translations: [Generalized anxiety disorder] Onset: 3 10-14-2022 Chronic Chronic kidney disease (20 sources) Chronic kidney disease stage 3A ; Translations: [Chronic kidney disease, stage 3a (HCC)] Onset: 3 Chronic Chronic kidney disease (1 source) Chronic kidney disease; Translations: [Chronic kidney disease, stage 3a (HCC)] Onset: 3 Coagulation and hemorrhagic disorders (20 sources) Platelet count below reference range; Translations: [Thrombocytopenia, unspecified] Onset: 0 11-08-2019 Chronic Congestive heart failure; nonhypertensive (6 sources) Left ventricular systolic dysfunction; Translations: [Heart disease, unspecified] Onset: 7 03-25-2016 Chronic Coronary atherosclerosis and other heart disease (20 sources) Old myocardial infarction; Translations: [Atherosclerotic heart disease of samish coronary artery without angina pectoris] Onset: 6 09-28-2016 Chronic Deficiency and other anemia (1 source) Chronic anemia; Translations: [Anemia, unspecified] 02-06-2023 Episodic Deficiency and other anemia (1 source) Anemia; Translations: [Anemia, unspecified] 03-03-2023 Episodic Deficiency and other anemia (2 sources) Anemia, unspecified; Translations: [Anemia, unspecified type] Onset: 3 Episodic Delirium, dementia, and amnestic and other cognitive disorders (20 sources) Dementia; Translations: [Unspecified dementia without behavioral disturbance] Onset: 3 Chronic Diabetes mellitus with complications (20 sources) Type 2 diabetes mellitus; Translations: [Type 2 diabetes mellitus with diabetic chronic kidney disease] Onset: 3 Chronic Diabetes mellitus without complication (20 sources) Type 2 diabetes mellitus without complication; Translations: [Type 2 diabetes mellitus without complications] Onset: 3 05-27-2015 Chronic Disorders of lipid metabolism (6 sources) Hyperlipidemia; Translations: [Hyperlipidemia, unspecified] Onset: 7 03-25-2016 Chronic E Codes: Fall (1 source) Fall; Translations: [Unspecified fall, initial encounter] Episodic E Codes: Natural/environment (1 source) Insect bite - wound; Translations: [Bitten or stung by nonvenomous insect and other nonvenomous arthropods, initial encounter] Episodic Esophageal disorders (1 source) Gastroesophageal reflux disease without esophagitis; Translations: [Gastro-esophageal reflux disease without esophagitis] 02-06-2023 Chronic Essential hypertension (3 sources) Essential hypertension; Translations: [Essential (primary) hypertension] Onset: 3 Chronic Hyperplasia of prostate (20 sources) Benign prostatic hyperplasia; Translations: [Benign prostatic hyperplasia without lower urinary tract symptoms] Onset: 3 02-26-2013 Chronic Leukemias (20 sources) Chronic lymphoid leukemia, disease; Translations: [Chronic lymphocytic leukemia of B-cell type not having achieved remission] Onset: 4 03-27-2013 Chronic Malaise and fatigue (1 source) Asthenia; Translations: [Other malaise] 02-06-2023 Episodic Non-Hodgkin`s lymphoma (2 sources) Malignant lymphoma - small lymphocytic; 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, unspecified site] Onset: 3 03-03-2023 Chronic Osteoarthritis (20 sources) Arthritis; Translations: [Unspecified osteoarthritis, unspecified site] Onset: 9 06-05-2018 Chronic Other aftercare (2 sources) Post-discharge follow-up; Translations: [Encounter for follow-up examination after completed treatment for conditions other than malignant neoplasm] 12-14-2022 Episodic Other circulatory disease (1 source) Low blood pressure; Translations: [Other hypotension] 12-14-2022 Episodic Other circulatory disease (1 source) Hypotensive episode; Translations: [Hypotension, unspecified] 02-06-2023 Episodic Other connective tissue disease (1 source) Pain of toe of left foot; Translations: [Pain in left toe(s)] Episodic Other gastrointestinal disorders (1 source) Acute constipation; Translations: [Constipation, unspecified] 12-16-2022 Episodic Other gastrointestinal disorders (1 source) Constipation; Translations: [Constipation, unspecified] 02-06-2023 Episodic Other lower respiratory disease (1 source) Cough; Translations: [Cough] Episodic Other nutritional; endocrine; and metabolic disorders (1 source) Weight loss; Translations: [Abnormal weight loss] Episodic Other skin disorders (1 source) Callosity on toe; Translations: [Corns and callosities] Episodic Other upper respiratory infections (1 source) Chronic sinusitis; Translations: [Chronic sinusitis, unspecified] Chronic Residual codes; unclassified (2 sources) Forgetful; Translations: [Other general symptoms and signs] Episodic Residual codes; unclassified (2 sources) Amnesia; Translations: [Other amnesia] Episodic Skin and subcutaneous tissue infections (1 source) Infection of skin and/or subcutaneous tissue; Translations: [Other specified local infections of the skin and subcutaneous tissue] 02-19-2023 Episodic Thyroid disorders (20 sources) Hypothyroidism; Translations: [Hypothyroidism, unspecified] Onset: 9 Chronic Unclassified (6 sources) Drug therapy finding; Translations: [welder apprentice combination (current) use of antithrombotics/antipl atelets] Onset: 7 03-29-2016 Unclassified (8 sources) Placement of stent in coronary artery ; Translations: [Presence of other cardiac implants and grafts] Onset: 6 03-25-2016 Unclassified (2 sources) Long-term drug therapy; Translations: [Other restorer paper and prints (current) drug therapy] Onset: 7 03-25-2016 Unclassified (2 sources) Mild dementia with anxiety, 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HCC); Translations: [Mild dementia with anxiety, 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HCC)] Onset: 3 Past or Other Problems Problem Classification Problem Date Documented Da te Episodic/Chronic Fever of unknown origin (1 source) Fever, unspecified; Translations: [Fever, unspecified fever cause] Onset: 12-08-2022 Episodic Genitourinary symptoms and ill-defined conditions (20 sources) Retention of urine; Translations: [Retention of urine, unspecified] Onset: 02-26-2013 02-26-2013 Episodic Other aftercare (4 sources) Other assisted (current) drug therapy; Translations: [Other assisted (current) drug therapy] Onset: 03-25-2016 03-25-2016 Episodic Other aftercare (1 source) Encounter for follow-up examination after completed treatment for conditions other than malignant neoplasm; Translations: [Hospital discharge follow-up] Onset: 12-16-2022 Episodic Other circulatory disease (1 source) Other hypotension; Translations: [Other specified hypotension] Onset: 12-16-2022 Episodic Other circulatory disease (1 source) Hypotension, unspecified; Translations: [Hypotensive episode] Onset: 12-08-2022 Episodic Other gastrointestinal disorders (1 source) Constipation, unspecified; Translations: [Acute constipation] Onset: 12-16-2022 Episodic Other nutritional; endocrine; and metabolic disorders (1 source) Abnormal weight loss; Translations: [Weight loss] Onset: 09-02-2022 Episodic Residual codes; unclassified (20 sources) History of clinical finding in subject; Translations: [Personal history of other specified conditions] Onset: 02-26-2013 02-26-2013 Episodic Residual codes; unclassified (20 sources) Memory impairment; Translations: [Other amnesia] Onset: 08-10-2021 Episodic Residual codes; unclassified (1 source) Other general symptoms and signs; Translations: [Forgetfulness] Onset: 09-02-2022 Episodic Residual codes; unclassified (1 source) Other amnesia; Translations: [Memory loss] Onset: 09-02-2022 Episodic Urinary tract infections (2 sources) Acute cystitis; Translations: [Acute cystitis with hematuria] Onset: 12-16-2022 12-14-2022 Episodic Results Test Name Value Interpretation Reference Range Facil ity Vital Signs Date Time Vital Sign Value Performing Clinician Facility 03-03-2023 11:31-0500 Body temperature 97.9 [degF] Chapin Dawn DO Work Phone: [facility] 03-03-2023 11:31-0500 Body weight 78.93 kg Chapin Dawn DO Work Phone: [facility] 03-03-2023 11:31-0500 Diastolic blood pressure 69 mm[Hg] Chapin Dawn DO Work Phone: [facility] 03-03-2023 11:31-0500 Heart rate 62 /min Chapin Dawn DO Work Phone: [facility] 03-03-2023 11:31-0500 SaO2% (BldA) [Mass fraction] 98 % Chapin Cansecoi DO Work Phone: [facility] 03-03-2023 11:31-0500 Systolic blood pressure 114 mm[Hg] Chapin Cansecoi DO Work Phone: [facility] 02-19-2023 11:43-0500 Body temperature 98.01 [degF] Scar Elder DIRECTOR SALES AND MARKETING.WIRE WELDER Work Phone: [facility] 02-19-2023 11:43-0500 Body weight 77.11 kg Scar Elder DIRECTOR SALES AND MARKETING.WIRE WELDER Work Phone: [facility] 02-19-2023 11:43-0500 Diastolic blood pressure 72 mm[Hg] Scar Elder DIRECTOR SALES AND MARKETING.WIRE WELDER Work Phone: [facility] 02-19-2023 11:43-0500 Heart rate 74 /min Scar Elder DIRECTOR SALES AND MARKETING.WIRE WELDER Work Phone: [facility] 02-19-2023 11:43-0500 Respiratory rate 16 /min Scar Elder DIRECTOR SALES AND MARKETING.WIRE WELDER Work Phone: [facility] 02-19-2023 11:43-0500 SaO2% (BldA) [Mass fraction] 97 % Scar Elder DIRECTOR SALES AND MARKETING.WIRE WELDER Work Phone: [facility] 02-19-2023 11:43-0500 Systolic blood pressure 124 mm[Hg] Scar Elder DIRECTOR SALES AND MARKETING.WIRE WELDER Work Phone: [facility] 02-06-2023 14:26-0500 Body weight 78.93 kg Herminio Gr MD Work Phone: [facility] 02-06-2023 14:26-0500 Diastolic blood pressure 66 mm[Hg] Herminio Gr MD Work Phone: [facility] 02-06-2023 14:26-0500 Heart rate 68 /min Herminio Gr MD Work Phone: [facility] 02-06-2023 14:26-0500 Respiratory rate 20 /min Herminio Gr MD Work Phone: [facility] 02-06-2023 14:26-0500 Systolic blood pressure 114 mm[Hg] Herminio Gr MD Work Phone: [facility] 12-23-2022 16:35-0400 Body temperature 97.5 [degF] Deandre Pendlekingsley DIRECTOR SALES AND MARKETING.WIRE WELDER Work Phone: [facility] 12-23-2022 16:35-0400 Body weight 79.92 kg Deandre Pendlekingsley DIRECTOR SALES AND MARKETING.WIRE WELDER Work Phone: [facility] 12-23-2022 16:35-0400 Diastolic blood pressure 81 mm[Hg] Deandre Pendlebury DIRECTOR SALES AND MARKETING.WIRE WELDER Work Phone: [facility] 12-23-2022 16:35-0400 Heart rate 60 /min Deandre Clementlekingsley DIRECTOR SALES AND MARKETING.WIRE WELDER Work Phone: [facility] 12-23-2022 16:35-0400 Respiratory rate 18 /min Deandre Pendlekingsley DIRECTOR SALES AND MARKETING.WIRE WELDER Work Phone: [facility] 12-23-2022 16:35-0400 SaO2% (BldA) [Mass fraction] 97 % Deandre Pendlekingsley DIRECTOR SALES AND MARKETING.WIRE WELDER Work Phone: [facility] 12-23-2022 16:35-0400 Systolic blood pressure 166 mm[Hg] Deandre Clementlekingsley DIRECTOR SALES AND MARKETING.WIRE WELDER Work Phone: [facility] 12-16-2022 13:05-0400 Body weight 77.56 kg Nicol Faria DIRECTOR SALES AND MARKETING.WIRE WELDER Work Phone: [facility] 12-16-2022 13:05-0400 Diastolic blood pressure 58 mm[Hg] Nicol Faria DIRECTOR SALES AND MARKETING.WIRE WELDER Work Phone: [facility] 12-16-2022 13:05-0400 Heart rate 65 /min Nicol Faria DIRECTOR SALES AND MARKETING.WIRE WELDER Work Phone: [facility] 12-16-2022 13:05-0400 Respiratory rate 16 /min Nicol Faria DIRECTOR SALES AND MARKETING.WIRE WELDER Work Phone: [facility] 12-16-2022 13:05-0400 SaO2% (BldA) [Mass fraction] 97 % Nicol Holleyhof DIRECTOR SALES AND MARKETING.WIRE WELDER Work Phone: [facility] 12-16-2022 13:05-0400 Systolic blood pressure 98 mm[Hg] Nicol Holleyhof DIRECTOR SALES AND MARKETING.WIRE WELDER Work Phone: [facility] 11-11-2022 16:27-0400 Body height 177.8 cm Fangfei Sherry DO Work Phone: [facility] 11-11-2022 16:27-0400 Body weight 80.88 kg Fangfei Sherry DO Work Phone: [facility] 11-11-2022 16:27-0400 Diastolic blood pressure 79 mm[Hg] Fangfei Sherry DO Work Phone: [facility] 11-11-2022 16:27-0400 Heart rate 58 /min Fangfei Sherry DO Work Phone: [facility] 11-11-2022 16:27-0400 Respiratory rate 20 /min Fangfei Sherry DO Work Phone: [facility] 11-11-2022 16:27-0400 Systolic blood pressure 155 mm[Hg] Fangfei Sherry DO Work Phone: [facility] 10-14-2022 13:35-0400 Body height 177.8 cm Fangfei Sherry DO Work Phone: [facility] 10-14-2022 13:35-0400 Body weight 79.33 kg Fangfei Sherry DO Work Phone: [facility] 10-14-2022 13:35-0400 Diastolic blood pressure 61 mm[Hg] Fangfei Sherry DO Work Phone: [facility] 10-14-2022 13:35-0400 Heart rate 63 /min Fangfei Sherry DO Work Phone: [facility] 10-14-2022 13:35-0400 Respiratory rate 20 /min Fangfei Sherry DO Work Phone: [facility] 10-14-2022 13:35-0400 Systolic blood pressure 115 mm[Hg] Fangfei Sherry DO Work Phone: [facility] 09-02-2022 15:47-0400 Body weight 80.74 kg Herminio Gr MD Work Phone: [facility] 09-02-2022 15:47-0400 Diastolic blood pressure 66 mm[Hg] Herminio Gr MD Work Phone: [facility] 09-02-2022 15:47-0400 Heart rate 68 /min Herminio Gr MD Work Phone: [facility] 09-02-2022 15:47-0400 Respiratory rate 16 /min Herminio Gr MD Work Phone: [facility] 09-02-2022 15:47-0400 Systolic blood pressure 110 mm[Hg] Herminio Gr MD Work Phone: [facility] 07-22-2022 11:04-0400 Body weight 86.73 kg Herminio Gr MD Work Phone: [facility] 07-22-2022 11:04-0400 Diastolic blood pressure 72 mm[Hg] Herminio Gr MD Work Phone: [facility] 07-22-2022 11:04-0400 Heart rate 64 /min Herminio Gr MD Work Phone: [facility] 07-22-2022 11:04-0400 Respiratory rate 16 /min Herminio Gr MD Work Phone: [facility] 07-22-2022 11:04-0400 Systolic blood pressure 124 mm[Hg] Herminio Gr MD Work Phone: [facility] 05-13-2022 16:29-0500 Body temperature 97.59 [degF] Mary Tellez APRN.CNP Work Phone: [facility] 05-13-2022 16:29-0500 Body weight 87.73 kg Mary Tellez DIRECTOR SALES AND MARKETING.WIRE WELDER Work Phone: [facility] 05-13-2022 16:29-0500 Diastolic blood pressure 68 mm[Hg] Mary Tellez DIRECTOR SALES AND MARKETING.WIRE WELDER Work Phone: [facility] 05-13-2022 16:29-0500 Heart rate 60 /min Mary Tellez DIRECTOR SALES AND MARKETING.WIRE WELDER Work Phone: [facility] 05-13-2022 16:29-0500 Respiratory rate 18 /min Mary Tellez DIRECTOR SALES AND MARKETING.WIRE WELDER Work Phone: [facility] 05-13-2022 16:29-0500 SaO2% (BldA) [Mass fraction] 97 % Mary Tellez DIRECTOR SALES AND MARKETING.WIRE WELDER Work Phone: [facility] 05-13-2022 16:29-0500 Systolic blood pressure 118 mm[Hg] Mary Tellez DIRECTOR SALES AND MARKETING.WIRE WELDER Work Phone: [facility] 08-23-2021 15:09-0400 Body temperature 98.2 [degF] Deandre Jackson DIRECTOR SALES AND MARKETING.WIRE WELDER Work Phone: [facility] 08-23-2021 15:09-0400 Body weight 85.82 kg Deandre Jackson DIRECTOR SALES AND MARKETING.WIRE WELDER Work Phone: [facility] 08-23-2021 15:09-0400 Diastolic blood pressure 68 mm[Hg] Deandre Jackson DIRECTOR SALES AND MARKETING.WIRE WELDER Work Phone: [facility] 08-23-2021 15:09-0400 Heart rate 82 /min Deandre Pendlekingsley DIRECTOR SALES AND MARKETING.WIRE WELDER Work Phone: [facility] 08-23-2021 15:09-0400 Respiratory rate 20 /min Deandre Pendlekingsley DIRECTOR SALES AND MARKETING.WIRE WELDER Work Phone: [facility] 08-23-2021 15:09-0400 SaO2% (BldA) [Mass fraction] 94 % Deandre Pendlebury DIRECTOR SALES AND MARKETING.WIRE WELDER Work Phone: [facility] 08-23-2021 15:09-0400 Systolic blood pressure 122 mm[Hg] Deandre Jackson APRN.WIRE WELDER Work Phone: [facility] 08-10-2021 10:53-0400 Body weight 87.05 kg Herminio Gr MD Work Phone: [facility] 08-10-2021 10:53-0400 Diastolic blood pressure 70 mm[Hg] Herminio Gr MD Work Phone: [facility] 08-10-2021 10:53-0400 Heart rate 66 /min Herminio Gr MD Work Phone: [facility] 08-10-2021 10:53-0400 Respiratory rate 16 /min Herminio Gr MD Work Phone: [facility] 08-10-2021 10:53-0400 Systolic blood pressure 126 mm[Hg] Herminio Gr MD Work Phone: [facility] 07-16-2021 09:45-0400 Body temperature 97.11 [degF] Griselda Athy PA-C Work Phone: [facility] 07-16-2021 09:45-0400 Body weight 89.9 kg Griselda Athy PA-C Work Phone: [facility] 07-16-2021 09:45-0400 Diastolic blood pressure 80 mm[Hg] Griselda Athy PA-C Work Phone: [facility] 07-16-2021 09:45-0400 Heart rate 76 /min Griselda Athy PA-C Work Phone: [facility] 07-16-2021 09:45-0400 Respiratory rate 18 /min Griselda Athy PA-C Work Phone: [facility] 07-16-2021 09:45-0400 SaO2% (BldA) [Mass fraction] 98 % Griselda Athy PA-C Work Phone: [facility] 07-16-2021 09:45-0400 Systolic blood pressure 126 mm[Hg] Griselda Athy PA-C Work Phone: [facility] 07-11-2021 13:43-0400 Body temperature 97.9 [degF] Griselda Athy PA-C Work Phone: [facility] 07-11-2021 13:43-0400 Body weight 89.36 kg Girselda Athy PA-C Work Phone: [facility] 07-11-2021 13:43-0400 Diastolic blood pressure 66 mm[Hg] Griselda Athy PA-C Work Phone: [facility] 07-11-2021 13:43-0400 Heart rate 70 /min Griselda Athy PA-C Work Phone: [facility] 07-11-2021 13:43-0400 Respiratory rate 16 /min Griselda Athy PA-C Work Phone: [facility] [place] 07-11-2021 13:43-0400 SaO2% (BldA) [Mass fraction] 96 % Griselda Athy PA-C Work Phone: [facility] 07-11-2021 13:43-0400 Systolic blood pressure 128 mm[Hg] Griselda Athy PA-C Work Phone: [facility] [place] 10-10-2016 10:17-0400 BMI (Body Mass Index) 30.56 kg/m2 [facility] Work Phone: 10-10-2016 10:17-0400 BP Diastolic 68 mm[Hg] [facility] Work Phone: 10-10-2016 10:17-0400 BP Systolic 126 mm[Hg] [facility] Work Phone: 10-10-2016 10:17-0400 Height 177.8 cm [facility] Work Phone: 10-10-2016 10:17-0400 Pulse (Heart Rate) 68 /min [facility] Work Phone: 10-10-2016 10:17-0400 Respiratory Rate 18 /min [facility] Work Phone: 10-10-2016 10:17-0400 Weight 96.62 kg [facility] Work Phone: 03-29-2016 14:00-0500 Heart rate 60 /min Shelbie Lake RN [facility] Work Phone: 03-29-2016 13:31-0500 BMI (Body Mass Index) 31.71 kg/m2 Shelbie Lake RN [facility] Work Phone: 03-29-2016 13:31-0500 BP Diastolic 68 mm[Hg] Shelbie Lake RN [facility] Work Phone: 03-29-2016 13:31-0500 BP Systolic 126 mm[Hg] Shelbie Lake RN [facility] Work Phone: 03-29-2016 13:31-0500 BSA (Body Surface Area) 2.18 m2 Shelbie Lake RN [facility] Work Phone: 03-29-2016 13:31-0500 Height 177.8 cm Shelbie Lake RN [facility] Work Phone: 03-29-2016 13:31-0500 Pulse (Heart Rate) 72 /min Shelbie Lake RN [facility] Work Phone: 03-29-2016 13:31-0500 Respiratory Rate 18 /min Shelbie Lake RN [facility] Work Phone: 03-29-2016 13:31-0500 Weight 100.25 kg Shelbie Lake RN [facility] Work Phone: Encounters Encounter Date Encounter Type Care Provider Facility Start: 03-31-2023 End: 03-31-2023 ambulatory CHAPIN DAWN Facility:[facility] Start: 03-10-2023 End: 03-11-2023 ambulatory HERMINIO Freed [facility] Facility:[facility] Start: 03-03-2023 End: 03-04-2023 ambulatory CHAPIN DAWN Facility:[facility] Start: 03-03-2023 End: 03-04-2023 ambulatory CHAPIN DAWN Facility:[facility] Start: 03-03-2023 End: 03-03-2023 ambulatory Chapin Dawn DO Work Phone: Hematology/Oncology Procedures Date Procedure Procedure Detail Performing Clinician Start: 12-16-2022 Urnls dip stick/tablet rgnt auto w/o microscopy Nicol Faria APRN.WIRE WELDER Work Phone: Start: 11-17-2022 Mri brain brain stem w/o contrast material [facility] Work Phone: Start: 11-17-2022 3d rendering w/interp&postproc diff work station [facility] Work Phone: Start: 10-10-2016 End: 10-10-2016 KAILASH King MD Work Phone: Start: 10-10-2016 End: 10-10-2016 Follow Up Appt 6 months Johnny King MD Work Phone: Start: 03-29-2016 End: 05-03-2016 *Hepatic Function Panel Johnny King MD Work Phone: Start: 03-29-2016 End: 03-29-2016 KAILASH King MD Work Phone: Start: 03-29-2016 End: 03-29-2016 Electrocardiogram, complete Johnny King MD Work Phone: Start: 03-29-2016 End: 03-29-2016 Follow Up Appt 6 months Johnny King MD Work Phone: Start: 03-29-2016 End: 05-03-2016 Lipid panel [AGGREGATE] Johnny King MD Work Phone: Start: 03-29-2016 End: 03-30-2016 Referral to scrap preparer Johnyn King MD Work Phone: Start: 03-29-2016 End: 01-14-2017 Stress Echocardiogram (treadmill) Johnny King MD Work Phone: Start: 03-25-2016 Placement of stent in coronary artery Mutilple coronary stents Shelbie Lake RN Start: 03-03-2016 End: 03-03-2016 Nurse, Teaching, Wound Check (no charge) Johnny King MD Work Phone: Start: 03-03-2016 Placement of stent in coronary artery Coronary stent Shelbie Lake RN Plan of Treatment Date Care Activity Detail Author Start: 10-31-2028 Urine microalbumin profile [facility] Start: 07-23-2023 COVID-19 VACCINE (#1) COVID-19 VACCI NE (#1) [facility] Immunizations Immunization Date Immunization Notes Care Provider Fa claude 10-31-2018 tetanus toxoid, reduced diphtheria toxoid, and acellular pertussis vaccine, adsorbed Herminio Gr MD Work Phone: [facility] 02-27-2018 influenza virus vaccine, unspecified formulation Nicol Faria APRN.CNP Work Phone: [facility] 11-26-2014 pneumococcal conjuga te vaccine, 13 valent Herminio Gr MD Work Phone: [facility] [place] 02-05-2014 influenza, seasonal, injectable Herminio Gr MD Work Phone: [facility] [place] 09-27-2013 tetanus and diphther ia toxoids, adsorbed, preservative free, for adult use (5 Lf of tetanus toxoid and 2 Lf of diphtheria toxoid) Herminio Gr MD Work Phone: [facility] 01-18-2013 influenza virus vaccine, unspecified formulation Herminio Gr MD Work Phone: [facility] Work Phone: 01-24-2012 influenza virus vaccine, unspecified formulation Herminio Gr MD Work Phone: [facility] 12-25-2010 influenza virus vaccine, unspecified formulation Herminio Gr MD Work Phone: [facility] [place] Work Phone: 01-22-2007 influenza virus vaccine, unspecified formulation Herminio Gr MD Work Phone: [facility] Work Phone: Payers Date Payer Category Payer Unknown [employer] HMO POS [id number] 2014-Present [phone] [address] [place] [address] O [id number] 2014 Unknown [employer]IME [employer] HMO POS [id number] 2014-Present [phone] [address] [place] [address] O [id number] 2014 Unknown [id number] Social History Date Type Detail Facility Start: 11-30-2010 End: 12-28-2021 Tobacco smoking status NHIS Ex-smoker [facility] End: 03-20-1983 History of tobacco use Current smoker [facility] End: 03-20-1983 History of tobacco use Cigarette Smoker [facility] Start: 11-30-2010 End: 07-22-2022 Cigarettes smoked current (pack per day) - Reported 1 [facility] Start: 11-30-2010 End: 12-28-2021 Tobacco use and exposure Smokeless tobacco non-user [facility] Start: 03-09-2021 End: 03-03-2023 Alcohol intake Current drinker of alcohol (finding) [facility] Start: 10-22-2020 History SDOH Alcohol Frequency 2 [facility] Start: 10-22-2020 History SDOH Alcohol Std Drinks 1 [facility] Start: 01-01-2013 History SDOH Alcohol Comment very seldom [facility] Start: 10-22-2020 History SDOH Social Connections Phone 5 [facility] Start: 10-22-2020 History SDOH Social Connections Buddhism 3 [facility] Start: 10-22-2020 History SDOH Social Connections Living 4 [facility] Start: 10-21-2020 Education 21 [facility] Start: 04-12-2013 End: 12-28-2021 Tobacco Comment Pt smoked on & off for 20 years. [facility] Start: 1935 Sex Assigned At Not on file [facility] Start: 07-01-2021 End: 12-28-2021 Exposure to SARS-CoV-2 (event) Not sure [facility] Start: 10-21-2020 End: 07-22-2022 Social connection and isolation panel [facility] Do you belong to any clubs or organizations such as yazidi groups, unions, fraternal or athletic groups, or school groups? Yes [facility] Are you now , , , , never or living with a partner? [facility] How often to you hav e a drink containing alcohol? Monthly or less [facility] How many standard dr inks containing alcohol do you have on a typical day? 1 or 2 [facility] How often do you hav e 6 or more drinks on 1 occasion? Never [facility] Adult Depression Scr eening Assessment 0 [facility] Work Phone: Do you feel stress - tense, restless, nervous, or anxious, or unable to sleep at night because your mind is troubled all the time - these days [OSQ] Only a little [facility] (I/We) worried wheth er (my/our) food would run out before (I/we) got money to buy more. Never true [facility] In the past 12 month s, was there a time when you were not able to pay the mortgage or rent on time? No [facility] Clinical Notes 06-24-2021 to 03-31-2023 Chapin Dawn, - 03/03/2023 11:57 AM Scar Rivero APRN.WIRE WELDER - 02/19/2023 11:56 AM ESTTelephone Encounter - Adama Gonzales - 02/10/2023 3:35 PM ESTPatient InstructionsPatient Instructions Note Date & Type Note Facility 03-31-2023 Note HNO ID: [id number] Author: АННА LEE RN Service: ? Author Type: Registered Nurse Type: Progress Notes Filed: 04/03/2023 17:08 Note Text: [facility] [place] [facility] received prescription(s) for Calquence from Dr. Dawn's office. PA was initiated and pending review. Plan Name: [place] [employer] / [employer] Case: TBD Timeline: URGENT Fax confirmation: SILVIA Jade, FREDI April 03, 2023 4:45 PM [facility] 03-31-2023 Note HNO ID: [id number] Author: MARK VELA RPh Service: ? Author Type: ? Type: Progress Notes Filed: 04/06/2023 10:56 Note Text: [facility] [place] [facility] received prescription(s) for Calquence from Nereyda's office. Benefits investigation was conducted, indicating that a prior authorization is required. PA was approved with details listed below: Plan Name: [place] [employer] / [email or web address] PA reference number: [id number] Approval Dates: 04/03/2023 - 03/19/2024 The first copay is high $3306.39 due to the different phases of the patient's traditional Medicare part D plan. After this fill patient has reached their catastrophic coverage phase, and it is expected his/her copays will be $0 thereafter. Prabha Ariza Addendum April 06, 2023 10:53 AM : The first copay is high ~$3,306 due to the different phases of the patient's traditional Medicare part D plan. After this fill patient has reached their catastrophic coverage phase, and it is expected his/her copays will be $0 thereafter. A nila is currently available for patients diagnosis. We will be contacting pt to discuss affordability and enroll into available funding program if appropriate. Mark Vela, PharmD Clinical Pharmacist, Oncology [facility] [place] [facility] P: ; F: Pool: P CC [facility] Pool #: [id number] [facility] 03-31-2023 Note HNO ID: [id number] Author: ?, ?, ? Service: ? Author Type: ? Type: Progress Notes Filed: 03/31/2023 14:13 Note Text: [facility] [place] [facility] received prescription(s) for Calquence from Dr. Dawn's office. Benefits investigation was conducted, indicating that a prior authorization is required by patient's insurance plan with [employer]. Encounter will be updated once prior authorization has been submitted by [facility]. Becca Smith CPhT [facility], Oncology P: / F: [facility] 03-31-2023 Note HNO ID: [id number] Author: ?, ?, ? Service: ? Author Type: ? Type: Progress Notes Filed: 04/07/2023 10:35 Note Text: Patient has been enrolled in a new $[id number] nila for Dx: CLL through [employer] 03/08/2023 to 03/07/2024. Becca Smith CPhT [facility], Oncology P: / F: [facility] 03-31-2023 Note HNO ID: [id number] Author: CHAPIN DAWN, DO Service: ? Author Type: Physician Type: Progress Notes Filed: 03/31/2023 12:18 Note Text: Diagnosis: 1) SLL. HPI: The patient is a 87 yo male who discovered a mobile submandibular/mental mass in October 2012. A CT scan of the neck was obtained December: Multiple abnormally enlarged, smoothly marginated, homogeneous soft tissue attenuation lymph nodes are scattered bilaterally throughout the neck with overall appearance most compatible with lymphoma. These measure 1.2 cm short axis right level Ia, 1.6 cm short axis left level Ib, 1.6 cm short axis level IIa bilaterally, 1.8 cm short axis right level IIb, 1.8 cm short axis right level III, 1.7 cm short axis left level IV and up to 1.7 cm short axis bilateral level Vb. Multiple pathologically enlarged, homogeneous soft tissue attenuation lymph nodes present within the axilla bilaterally, largest measuring up to 2.4 cm short axis on the right. Right paratracheal superior mediastinal lymph node measures 1.3 cm in short axis. Nasal cavity and oral cavity are unremarkable within limitations of artifact from dental amalgam. The pharyngeal mucosal space is normal in appearance. The vallecula and epiglottis are within normal limits and the pre-epiglottic fat is maintained. Parotid and submandibular glands are normal in appearance. Thyroid gland enhances symmetrically. Retropharyngeal course of the proximal cervical ICAs incidentally noted. Carotid arteries and jugular veins are patent bilaterally. Remainder of fascial spaces of the neck and contents are normal. Visualized intracranial contents demonstrate a right middle cranial fossa arachnoid cyst measuring up to 3 cm in AP dimension with smooth remodeling of the adjacent calvarium. Moderate atherosclerotic calcifications present within the carotid siphons. The orbits are grossly without abnormality. The visualized paranasal sinuses are clear and the mastoid air cells are well aerated bilaterally. The imaged lung apices are clear. Infraglottic airway is patent. Osseous structures are intact. IMPRESSION: Symmetric bulky homogeneous soft tissue attenuation adenopathy throughout the neck, imaged axilla and superior mediastinum most compatible with lymphoma. Was referred to Dr. Stone who performed and excisional biopsy of a right axillary LN 02/11/2013. Pathology consistent with SLL. Previous therapy: 1) BR x5 He was recently hospitalized fall 2022 following hernia repair for possible GI bleed. During that admission he underwent a CT that showed some retroperitoneal adenopathy although no sizes were rendered. He noticed for about a year some right-sided cervical adenopathy. Didn't bother him. He is on aspirin daily. Presents for ongoing oncologic management. Interim history: US liver/spleen--normal with no splenomegaly. No complaints. Occasional blood tinged mucous when blows nose. On ASA. Good appetite. Lives with his son. Daughter helps out quite a bit. PMH, medications and allergies personally reviewed by me today. Any changes documented in appropriate section. ROS: Constitutional: Denies episodes of fever and night sweats. Good appetite. Neuro: Denies SCHREIBER, vertigo. HEENT: No recent change in voice, vision or hearing. Resp: Denies cough, wheeze and hemoptysis. No shortness of breath at rest. CVS: Denies exertional chest pain, PND, orthopnea and LE edema. GI: Denies reflux, n/v, change in bowel habits and abdominal pain. : No dysuria or gross hematuria. No symptoms of bladder outlet obstruction. Endo: No hot flashes. Musculoskeletal: Denies bone, back, joint and muscular pain. Derm: No rash. Heme: See above. Psych: Normal mood. PHYSICAL EXAM: Vitals: Blood pressure 114/69, pulse 73, temperature 37.1 ?C (98.7 ?F), resp. rate 14, weight 79.8 kg (176 lb), SpO2 94%. Well-appearing and in no acute distress. EYES: Sclerae are anicteric bilaterally. ENT: Oral mucosa is unremarkable. LYMPHATIC: There is cervical, axillary and inguinal adenopathy--no change. RESPIRATORY: Inspiratory breath sounds are of normal intensity in all petersen. No rales, wheezes or rhonchi. CARDIOVASCULAR: Rhythm is regular. ABDOMEN: The abdomen is nondistended. No splenomegaly. No hepatomegaly. SKIN: No jaundice. LABS: Component Latest Ref Rng AND Units 03/03/2023 WBC 3.70 - 11.00 k/uL 3.85 RBC 4.20 - 6.00 m/uL 3.53 (L) Hemoglobin 13.0 - 17.0 g/dL 10.8 (L) Hematocrit 39.0 - 51.0 % 32.8 (L) MCV 80.0 - 100.0 fL 92.9 MCH 26.0 - 34.0 pg 30.6 MCHC 30.5 - 36.0 g/dL 32.9 RDW-CV 11.5 - 15.0 % 15.9 (H) Platelet Count 150 - 400 k/uL 77 (L) MPV 9.0 - 12.7 fL 8.9 (L) Neut% % 8.8 Abs Neut (ANC) 1.45 - 7.50 k/uL 0.34 (L) Lymph% % 80.8 Abs Lymph 1.00 - 4.00 k/uL 3.11 Cherokee% % 4.2 Abs Cherokee <0.87 k/uL 0.16 Eosin% % 3.6 Abs Eosin <0.46 k/uL 0.14 Baso% % 1.0 Abs Baso <0.11 k/uL 0.04 Immature Gran % % 1.6 IMM (more content not included)... [facility] 03-10-2023 Note HNO ID: [id number] Author: Teresa Dunn RDMS Service: ? Author Type: Chief Nurse Type: Progress Notes Filed: 03/10/2023 1:16 PM Note Text: Radiology Service Progress Note PATIENT NAME: John Contreras DATE OF SERVICE: March 10, 2023 TIME: 1:16 PM PATIENT IDENTITY VERIFICATION COMPLETED USING TWO (2) IDENTIFIERS: Name and Date of confirmed by patient verbally. FALL SCREENING: Has the patient had 2 falls in the last year or 1 fall with injury or currently using an Ambulatory Assistive Device (Walker, Cane, Wheelchair, Crutches, etc.)? No PATIENT GENDER DATA: Male PATIENT RELEVANT IMPLANT DATA REVIEWED: Not Applicable RADIOLOGY DEPARTMENT: Ultrasound PERIPHERAL IV DATA: Not applicable SIGNED BY: Teresa Dunn RDMS RVMargie March 10, 2023 1:16 PM [facility] 03-03-2023 Note HNO ID: [id number] Author: Chapin Dawn, DO Service: ? Author Type: Physician Type: Progress Notes Filed: 03/03/2023 2:56 PM Note Text: Diagnosis: 1) SLL. HPI: The patient is a 87 yo male who discovered a mobile submandibular/mental mass in October 2012. A CT scan of the neck was obtained December: Multiple abnormally enlarged, smoothly marginated, homogeneous soft tissue attenuation lymph nodes are scattered bilaterally throughout the neck with overall appearance most compatible with lymphoma. These measure 1.2 cm short axis right level Ia, 1.6 cm short axis left level Ib, 1.6 cm short axis level IIa bilaterally, 1.8 cm short axis right level IIb, 1.8 cm short axis right level III, 1.7 cm short axis left level IV and up to 1.7 cm short axis bilateral level Vb. Multiple pathologically enlarged, homogeneous soft tissue attenuation lymph nodes present within the axilla bilaterally, largest measuring up to 2.4 cm short axis on the right. Right paratracheal superior mediastinal lymph node measures 1.3 cm in short axis. Nasal cavity and oral cavity are unremarkable within limitations of artifact from dental amalgam. The pharyngeal mucosal space is normal in appearance. The vallecula and epiglottis are within normal limits and the pre-epiglottic fat is maintained. Parotid and submandibular glands are normal in appearance. Thyroid gland enhances symmetrically. Retropharyngeal course of the proximal cervical ICAs incidentally noted. Carotid arteries and jugular veins are patent bilaterally. Remainder of fascial spaces of the neck and contents are normal. Visualized intracranial contents demonstrate a right middle cranial fossa arachnoid cyst measuring up to 3 cm in AP dimension with smooth remodeling of the adjacent calvarium. Moderate atherosclerotic calcifications present within the carotid siphons. The orbits are grossly without abnormality. The visualized paranasal sinuses are clear and the mastoid air cells are well aerated bilaterally. The imaged lung apices are clear. Infraglottic airway is patent. Osseous structures are intact. IMPRESSION: Symmetric bulky homogeneous soft tissue attenuation adenopathy throughout the neck, imaged axilla and superior mediastinum most compatible with lymphoma. Was referred to Dr. Stone who performed and excisional biopsy of a right axillary LN 02/11/2013. Pathology consistent with SLL. Received BR x5 Interim history: He was recently hospitalized following hernia repair for possible GI bleed. During that admission he underwent a CT that showed some retroperitoneal adenopathy although no sizes were rendered. He is noticed for about a year some right-sided cervical adenopathy. Does not bother him. He is on aspirin daily. No unusual bleeding or unexplained bruising. PMH, medications and allergies personally reviewed by me today. Any changes documented in appropriate section. ROS: Constitutional: Denies episodes of fever and night sweats. Neuro: Denies SCHREIBER, vertigo. HEENT: No recent change in voice, vision or hearing. Resp: Denies cough, wheeze and hemoptysis. No shortness of breath at rest. CVS: Denies exertional chest pain, PND, orthopnea and LE edema. GI: Denies reflux, n/v, change in bowel habits and abdominal pain. : No dysuria or gross hematuria. No symptoms of bladder outlet obstruction. Endo: No hot flashes. Musculoskeletal: Denies bone, back, joint and muscular pain. Derm: No rash. Heme: No unusual bleeding or bruising. Psych: Normal mood. PMH, medications and allergies as below personally reviewed by me today. PHYSICAL EXAM: Vitals: Blood pressure 114/69, pulse 62, temperature 36.6 ?C (97.9 ?F), temperature source Temporal, weight 78.9 kg (174 lb), SpO2 98%. Well-appearing and in no acute distress. EYES: Sclerae are anicteric bilaterally. ENT: Oral mucosa is unremarkable. LYMPHATIC: There is cervical, axillary and inguinal adenopathy. RESPIRATORY: Inspiratory breath sounds are of normal intensity in all petersen. No rales, wheezes or rhonchi. CARDIOVASCULAR: Rhythm is regular. ABDOMEN: The abdomen is nondistended. Mild nontender splenomegaly. No hepatomegaly. SKIN: No jaundice. LABS: Component Latest Ref Rng AND Units 03/03/2023 WBC 3.70 - 11.00 k/uL 3.85 RBC 4.20 - 6.00 m/uL 3.53 (L) Hemoglobin 13.0 - 17.0 g/dL 10.8 (L) Hematocrit 39.0 - 51.0 % 32.8 (L) MCV 80.0 - 100.0 fL 92.9 MCH 26.0 - 34.0 pg 30.6 MCHC 30.5 - 36.0 g/dL 32.9 RDW-CV 11.5 - 15.0 % 15.9 (H) Platelet Count 150 - 400 k/uL 77 (L) MPV 9.0 - 12.7 fL 8.9 (L) Neut% % 8.8 Abs Neut (ANC) 1.45 - 7.50 k/uL 0.34 (L) Lymph% % 80.8 Abs Lymph 1.00 - 4.00 k/uL 3.11 Cherokee% % 4.2 Abs Cherokee <0.87 k/uL 0.16 Eosin% % 3.6 Abs Eosin <0.46 k/uL 0.14 Baso% % 1.0 Abs Baso <0.11 k/uL 0.04 Immature Gran % % 1.6 IMMATURE GRANS (ABS) <0.10 k/uL 0.06 NRBC /100 WBC 0.0 A (more content not included)... [facility] 03-03-2023 History of Presen t illness Narrative Diagnosis: 1) SLL. HPI: The patient is a 87 yo male who discovered a mobile submandibular/mental mass in October 2012. A CT scan of the neck was obtained December: Multiple abnormally enlarged, smoothly marginated, homogeneous soft tissue attenuation lymph nodes are scattered bilaterally throughout the neck with overall appearance most compatible with lymphoma. These measure 1.2 cm short axis right level Ia, 1.6 cm short axis left level Ib, 1.6 cm short axis level IIa bilaterally, 1.8 cm short axis right level IIb, 1.8 cm short axis right level III, 1.7 cm short axis left level IV and up to 1.7 cm short axis bilateral level Vb. Multiple pathologically enlarged, homogeneous soft tissue attenuation lymph nodes present within the axilla bilaterally, largest measuring up to 2.4 cm short axis on the right. Right paratracheal superior mediastinal lymph node measures 1.3 cm in short axis. Nasal cavity and oral cavity are unremarkable within limitations of artifact from dental amalgam. The pharyngeal mucosal space is normal in appearance. The vallecula and epiglottis are within normal limits and the pre-epiglottic fat is maintained. Parotid and submandibular glands are normal in appearance. Thyroid gland enhances symmetrically. Retropharyngeal course of the proximal cervical ICAs incidentally noted. Carotid arteries and jugular veins are patent bilaterally. Remainder of fascial spaces of the neck and contents are normal. Visualized intracranial contents demonstrate a right middle cranial fossa arachnoid cyst measuring up to 3 cm in AP dimension with smooth remodeling of the adjacent calvarium. Moderate atherosclerotic calcifications present within the carotid siphons. The orbits are grossly without abnormality. The visualized paranasal sinuses are clear and the mastoid air cells are well aerated bilaterally. The imaged lung apices are clear. Infraglottic airway is patent. Osseous structures are intact. IMPRESSION: Symmetric bulky homogeneous soft tissue attenuation adenopathy throughout the neck, imaged axilla and superior mediastinum most compatible with lymphoma. Was referred to Dr. Stone who performed and excisional biopsy of a right axillary LN 02/11/2013. Pathology consistent with SLL. Received BR x5 Interim history: He was recently hospitalized following hernia repair for possible GI bleed. During that admission he underwent a CT that showed some retroperitoneal adenopathy although no sizes were rendered. He is noticed for about a year some right-sided cervical adenopathy. Does not bother him. He is on aspirin daily. No unusual bleeding or unexplained bruising. PMH, medications and allergies personally reviewed by me today. Any changes documented in appropriate section. ROS: Constitutional: Denies episodes of fever and night sweats. Neuro: Denies SCHREIBER, vertigo. HEENT: No recent change in voice, vision or hearing. Resp: Denies cough, wheeze and hemoptysis. No shortness of breath at rest. CVS: Denies exertional chest pain, PND, orthopnea and LE edema. GI: Denies reflux, n/v, change in bowel habits and abdominal pain. : No dysuria or gross hematuria. No symptoms of bladder outlet obstruction. Endo: No hot flashes. Musculoskeletal: Denies bone, back, joint and muscular pain. Derm: No rash. Heme: No unusual bleeding or bruising. Psych: Normal mood. PMH, medications and allergies as below personally reviewed by me today. PHYSICAL EXAM: Vitals: Blood pressure 114/69, pulse 62, temperature 36.6 C (97.9 F), temperature source Temporal, weight 78.9 kg (174 lb), SpO2 98%. Well-appearing and in no acute distress. EYES: Sclerae are anicteric bilaterally. ENT: Oral mucosa is unremarkable. LYMPHATIC: There is cervical, axillary and inguinal adenopathy. RESPIRATORY: Inspiratory breath sounds are of normal intensity in all petersen. No rales, wheezes or rhonchi. CARDIOVASCULAR: Rhythm is regular. ABDOMEN: The abdomen is nondistended. Mild nontender splenomegaly. No hepatomegaly. SKIN: No jaundice. LABS: Component Latest Ref Rng & Units 03/03/2023 WBC 3.70 - 11.00 k/uL 3.85 RBC 4.20 - 6.00 m/uL 3.53 (L) Hemoglobin 13.0 - 17.0 g/dL 10.8 (L) Hematocrit 39.0 - 51.0 % 32.8 (L) MCV 80.0 - 100.0 fL 92.9 MCH 26.0 - 34.0 pg 30.6 MCHC 30.5 - 36.0 g/dL 32.9 RDW-CV 11.5 - 15.0 % 15.9 (H) Platelet Count 150 - 400 k/uL 77 (L) MPV 9.0 - 12.7 fL 8.9 (L) Neut% % 8.8 Abs Neut (ANC) 1.45 - 7.50 k/uL 0.34 (L) Lymph% % 80.8 Abs Lymph 1.00 - 4.00 k/uL 3.11 Cherokee% % 4.2 Abs Cherokee <0.87 k/uL 0.16 Eosin% % 3.6 Abs Eosin <0.46 k/uL 0.14 Baso% % 1.0 Abs Baso <0.11 k/uL 0.04 Immature Gran % % 1.6 IMMATURE GRANS (ABS) <0.10 k/uL 0.06 NRBC /100 WBC 0.0 Absolute nRBC <0.01 k/uL <0.01 DTYPE Auto Protein, Total 6.3 - 8.0 g/dL 6.1 (L) Albumin 3.9 - 4.9 g/dL 4.0 Calcium 8.5 - 10.2 mg/dL 8.9 Bilirubin, Total 0.2 - 1.3 mg/dL 0.4 Alkaline Phosphatase 38 - 113 U/L 102 AST 14 - 40 U/L 19 ALT 10 - 54 U/L 9 (L) Glucose 74 - 99 mg/dL 178 (H) BUN 9 - 24 mg/dL 26 (H) Creatinine 0.73 - 1.22 mg/dL 1.31 (H) Sodium 136 - 144 mmol/L 141 Potassium 3.7 - 5.1 mmol/L 4.6 Chloride 97 - 105 mmol/L 105 CO2 22 - 30 mmol/L 29 Anion Gap 9 - 18 mmol/L 7 (L) eGFR >=60 mL/min/1.73m 53 (L) LD 135 - 225 U/L 299 (H) Uric Acid 4.0 - 8.1 mg/dL 7.1 ASSESSMENT/PLAN: (C91.10) CLL (chronic lymphocytic leukemia) (HCC) (primary encounter diagnosis) (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 He received Bendamustine and rituximab 10 years ago and had complete response. -Now presents with about a years worth of progressive adenopathy. CBC reviewed with him and his daughter. He has progressive thrombocytopenia and mild anemia. -Discussed workup for the thrombocytopenia and if secondary to CLL without evidence of an autoimmune process, treatment for CLL/SLL indicated. Plan: -Basic labs and flow cytometry today. If circulating lymphoma cells then peripheral blood for CLL FISH and IGVH mutation. -Treatment with single agent obinutuzumab versus obinutuzumab with venetoclax or acalabrutinib pending above results. Portions of this documentation were copied and pasted from previous office visit notes in order to provide a cohesive continuity of the history. The note has been reviewed and edited and updated as necessary. I spent a total of 30 minutes on the date of the service which included preparing to see the patient, [id number] patient care, completing clinical documentation, obtaining and/or reviewing separately obtained history, performing a medically appropriate examination, counseling and educating the patient/family/caregiver, ordering medications, tests, or procedures, communicating with other HCPs (not separately reported), and communicating results to the patient/family/caregiver. Chapin Dawn DO documented in this encounter [facility] 02-19-2023 Note HNO ID: [id number] Author: Scar Friedman APRN.WIRE WELDER Service: ? Author Type: Nurse Practitioner Type: Progress Notes Filed: 02/19/2023 11:58 AM Note Text: Subjective HPI HPI John Contreras is a 87 year old male who presents today for CC of redness/pain, swelling around surgical site/cancerous lesion removed few days ago. Has tried nothing for relief. Symptoms are worsened by nothing. Denies fever. .Patient presents with: Wound Check: had precancerous spot removed on tues now spot is red and black in color PAST MEDICAL HISTORY Diagnosis Date Enlarged lymph nodes in armpit 02/11/13 Lymphoma (HCC) 11/2012 NEGATIVE MEDICAL HISTORY PAST SURGICAL HISTORY Procedure Laterality Date APPENDECTOMY BX/EXC LYMPH NODE OPEN DEEP AXILLARY NODE 02/11/2013 [facility] VARICIES INJ N/A 01/16/2023 PAST SURGICAL HISTORY OF tonsils and adenoids removed PAST SURGICAL HISTORY OF 02/22/2016 Stent placement, 2. [facility] - Dr. King PAST SURGICAL HISTORY OF N/A 12/27/2022 B/L hernia repair ALLERGIES Baby Aspirin [Aspirin], Lisinopril, Penicillin G, and Trees MEDICATIONS mirtazapine (REMERON) 15 mg tablet Take 1 tablet by mouth once daily. iron polysaccharide complex (FERREX-150) 150 mg iron capsule Take 1 capsule by mouth once daily. pantoprazole DR (PROTONIX) 40 mg tablet Take 1 tablet by mouth two times a day. polyethylene glycol 3350 17 gram/dose powder Take 17 g by mouth as needed for constipation. Dissolve dose in 4 - 8 ounces of liquid and take as directed. Senna 8.6 mg tab Take 1 tablet by mouth two times a day. atorvastatin (LIPITOR) 40 mg tablet Take 1 tablet by mouth once daily. carvedilol (COREG) 3.125 mg tablet Take 1 tablet by mouth twice daily with meals. dutasteride (AVODART) 0.5 mg capsule Take 1 capsule by mouth once daily. oxybutynin ER (DITROPAN XL) 10 mg 24 hr tablet Take 1 tablet by mouth once daily. levothyroxine (SYNTHROID) 88 mcg tablet Take 1 tablet by mouth once daily. Take on empty stomach. aspirin 81 mg cap Take 1 capsule by mouth once daily. doxycycline monohydrate 100 mg tablet Take 1 tablet by mouth two times a day for 7 days. FAMILY HISTORY Problem Relation Age of Onset Diabetes Mother Social History Tobacco Use Smoking status: Former Packs/day: 1 Types: Cigarettes Quit date: 03/20/1983 Years since quittin.9 Smokeless tobacco: Never Tobacco comments: Pt smoked on AND off for 20 years. Vaping Use Vaping Use: Never used Substance Use Topics Alcohol use: Yes Comment: very seldom Drug use: No ROS Objective Blood pressure 124/72, pulse 74, temperature 36.7 ?C (98 ?F), resp. rate 16, weight 77.1 kg (170 lb), SpO2 97%. Physical Exam Constitutional: General: He is not in acute distress. Appearance: He is not toxic-appearing or diaphoretic. HENT: Head: Normocephalic and atraumatic. Pulmonary: Effort: Pulmonary effort is normal. No accessory muscle usage or respiratory distress. Skin: Neurological: Mental Status: He is alert and oriented to person, place, and time. ASSESSMENT/PLAN: 1. Secondary infection of skin - ICD9: 686.8, ICD10: L08.89 -use medication as prescribed -follow up if symptoms persist, worsen, change Scar Friedman APRN.[facility] 02-19-2023 History of Presen t illness Narrative Images from the original note were not included. Subjective HPI HPI John Contreras is a 87 year old male who presents today for CC of redness/pain, swelling around surgical site/cancerous lesion removed few days ago. Has tried nothing for relief. Symptoms are worsened by nothing. Denies fever. .Patient presents with: Wound Check: had precancerous spot removed on tues now spot is red and black in color PAST MEDICAL HISTORY Diagnosis Date Enlarged lymph nodes in armpit 02/11/13 Lymphoma (HCC) 11/2012 NEGATIVE MEDICAL HISTORY PAST SURGICAL HISTORY Procedure Laterality Date APPENDECTOMY BX/EXC LYMPH NODE OPEN DEEP AXILLARY NODE 02/11/2013 EGD W/O [facility] SPEC VARICIES INJ N/A 01/16/2023 PAST SURGICAL HISTORY OF tonsils and adenoids removed PAST SURGICAL HISTORY OF 02/22/2016 Stent placement, 2. [facility] - Dr. King PAST SURGICAL HISTORY OF N/A 12/27/2022 B/L hernia repair ALLERGIES Baby Aspirin [Aspirin], Lisinopril, Penicillin G, and Trees MEDICATIONS mirtazapine (REMERON) 15 mg tablet Take 1 tablet by mouth once daily. iron polysaccharide complex (FERREX-150) 150 mg iron capsule Take 1 capsule by mouth once daily. pantoprazole DR (PROTONIX) 40 mg tablet Take 1 tablet by mouth two times a day. polyethylene glycol 3350 17 gram/dose powder Take 17 g by mouth as needed for constipation. Dissolve dose in 4 - 8 ounces of liquid and take as directed. Senna 8.6 mg tab Take 1 tablet by mouth two times a day. atorvastatin (LIPITOR) 40 mg tablet Take 1 tablet by mouth once daily. carvedilol (COREG) 3.125 mg tablet Take 1 tablet by mouth twice daily with meals. dutasteride (AVODART) 0.5 mg capsule Take 1 capsule by mouth once daily. oxybutynin ER (DITROPAN XL) 10 mg 24 hr tablet Take 1 tablet by mouth once daily. levothyroxine (SYNTHROID) 88 mcg tablet Take 1 tablet by mouth once daily. Take on empty stomach. aspirin 81 mg cap Take 1 capsule by mouth once daily. doxycycline monohydrate 100 mg tablet Take 1 tablet by mouth two times a day for 7 days. FAMILY HISTORY Problem Relation Age of Onset Diabetes Mother Social History Tobacco Use Smoking status: Former Packs/day: 1 Types: Cigarettes Quit date: 03/20/1983 Years since quittin.9 Smokeless tobacco: Never Tobacco comments: Pt smoked on & off for 20 years. Vaping Use Vaping Use: Never used Substance Use Topics Alcohol use: Yes Comment: very seldom Drug use: No ROS Objective Blood pressure 124/72, pulse 74, temperature 36.7 C (98 F), resp. rate 16, weight 77.1 kg (170 lb), SpO2 97%. Physical Exam Constitutional: General: He is not in acute distress. Appearance: He is not toxic-appearing or diaphoretic. HENT: Head: Normocephalic and atraumatic. Pulmonary: Effort: Pulmonary effort is normal. No accessory muscle usage or respiratory distress. Skin: Neurological: Mental Status: He is alert and oriented to person, place, and time. ASSESSMENT/PLAN: 1. Secondary infection of skin - ICD9: 686.8, ICD10: L08.89 -use medication as prescribed -follow up if symptoms persist, worsen, change Scar Friedman APRN.WIRE WELDER documented in this encounter [facility] 02-10-2023 Miscellaneous Notes Pt daughterJossie, returned call to office, notified of results/provider response. She verbalized understanding. Adama Gonzales Message left on pt daughter Jossie's VM, asked that they call back or have pt call back for results. Belem Fierro Ma Left a message for pt to call the office and ask to speak to a nurse. Carola Bell LPN TC to patient with no answer. Left VM to return call to office to receive results/recommendations. KODY Hernandez Please notify patient that his lab results look OK. His iron level is good, so he can just take the iron that he was given at the hospital, and does not need any more after that. Herminio Gr MD documented in this encounter [facility] 02-06-2023 Note HNO ID: [id number] Author: Herminio Gr MD Service: ? Author Type: Physician Type: Progress Notes Filed: 02/06/2023 5:27 PM Note Text: Chief Complaint Patient presents with: Hospital Follow Up HPI John Contreras is a 87 year old male who presents here today for Hospital Discharge Follow up. Pt here today with daughters for a hospital follow up, but staying with his Son. Has questions today regarding his medication. Uro - Has appt to f/u with Dr. Peres on 03/16/23 to f/u. No longer using a catheter. Pt states that going the bathroom pretty normal with fluctuations. Overall feels he empties his bladder all the way. Son states that stream is steady. Does have nocturia. Uses a urinal at beside. No pain with urination. Ditropan was d/c on discharge and no longer taking Finasteride 5 mg. On current regimen of Avodart 0.5 mg once daily. GI - States he had normal BM today, that was normal and soft. On current regimen of Miralax daily and Senna bid. Was seen by Dr. Busby during admission. Notes generally having BM every 3 days or less. Anemia - Currently taking Ferrex-150 mg 1 caps daily. Is scheduled to see Dr. Dawn. Also for enlarged lymph nodes as well. Pt hx of CLL. GERD - Prior to starting Protonix 40 mg bid, daughters state that when he was admitted he was burping frequently. Less noticeable, not as much. Appetite - Daughter states that Mirtazapine 15 mg was started because pt was not eating. Feels that his appetite has improved and he's eating at home. Wondering if he needs to continue the medication. HTN - Hx of HTN and was previously on Losartan 25 mg once daily. Is still on Coreg 3.125 mg 1 tab po bid. Was having issues with hypotension, was told this could be related to UTI, but asking if this is UTI related or an actual issue. Did have a monitor, but not working. Nurse came in and checked this morning. Declined symptoms today. Weakness - Today pt reports feeling pretty good at present time. Pt able to get up and move around the house without issues. Able to go to the bathroom himself. Therapists are coming to the house. Hernia - Completed by Dr. Gross on 12/27/22 bilateral hernia repair. Numbness - Reports that b/l toes get numb. If he moves them enough eventually this will improve. Feels this occurs mostly during the day. Pt was discharged home from [facility] on 01/30/23 to stay with his son. Follows with Friend, Gastro. He is on 81 mg ASA, Protonix and Iron. Below copied from [facility] [employer] Discharge Diagnosis (1) Postoperative ileus: Status: Resolved Code(s): K91.89 - Other postprocedural complications and disorders of digestive system; K56.7 - Ileus, unspecified Plan 87 year old male with below past medical history hospitalized for weakness, postoperative ileus, urinary retention, constipation, dehydration, admitted to TCU with debility, here for rehabilitation, strengthening, prior to discharge home alone. Debility - PT/OT. Pain - Tylenol 1000mg q6 prn pain (1-10). Bowel - Miralax 17gm daily, senna/colace 1 tablet bid, Magnesium citrate 300ml daily prn. Adult immunization - Administer pneumonia vaccine, covid19 vaccine, flu vaccine as appropriate. DVT prophylaxis - Hold, anemia. Coronary artery disease - Coreg 3.125mg bid, aspirin 81mg daily. Hyperlipidemia - Atorvastatin 40mg qhs. Hypothyroidism - Levothyroxine 88mcg daily. BPH - Finasteride 5mg daily, Tamsulosin 0.4mg daily, camacho out. Appetite loss - Mirtazapine 15mg qhs, stable use, GDR not recommended. Past medical history, appointments, medications, allergies reviewed. Previous Medical History PAST MEDICAL HISTORY Diagnosis Date Enlarged lymph nodes in armpit 02/11/13 Lymphoma (HCC) 11/2012 NEGATIVE MEDICAL HISTORY Previous Surgical History PAST SURGICAL HISTORY Procedure Laterality Date APPENDECTOMY BX/EXC LYMPH NODE OPEN DEEP AXILLARY NODE 02/11/13 PAST SURGICAL HISTORY OF tonsils and adenoids removed PAST SURGICAL HISTORY OF 02/22/2016 Stent placement, 2. [facility] - Dr. King Family History FAMILY HISTORY Problem Relation Age of Onset Diabetes Mother Patient Allergies ALLERGIES Allergen Reactions Baby Aspirin [Aspir* Other: See Comments Hematuria. Lisinopril Intolerance Frequent dry cough Penicillin G Hives Trees Other: See Comments Positive skin test 05-29-13. Current Medications Current Outpatient Medications on File Prior to Visit Medication Sig atorvastatin (LIPITOR) 40 mg tablet Take 1 tablet by mouth once daily. carvedilol (COREG) 3.125 mg tablet Take 1 tablet by mouth twice daily with meals. sertraline (ZOLOFT) 25 mg tablet Take 1 tablet by mouth once daily. dutasteride (AVODART) 0.5 mg capsule Take 1 capsule by mouth once daily. oxybutynin ER (DITROPAN XL) 10 mg 24 hr tablet Take 1 tablet by mouth once daily. losartan (COZAAR) 25 mg tablet Take 1 tablet by mouth once daily. (Patient not taking: Reported on 12/16/2022) (more content not included)... [facility] 02-06-2023 Instructions Tish Copeland Ma - 02/06/2023 2:45 PM EST Can reduce Mirtazapine to every other day for a couple weeks, then can stop it. If appetite decreases or mood changes, update office. Iron and Levothyroxine should be taken apart, by at least 4 hours. Thyroid should be taken on an empty stomach. Iron is okay to take with food. Can take Iron at lunch or dinner. BP - Continue Coreg as prescribed. Recommend checking BP at home. If needing a new monitor update office and we can send in a prescription to pharmacy. Anemia - Continue Iron prescription daily. Recheck CBC today, will call with results. Keep appt with Dr. Dawn for follow up. GI - Continue Senna and Miralax. Iron medication can potentially cause constipation. If bowels become loose, can reduce amount/frequency. Urology - Keep follow up with Dr. Peres as scheduled in February. As recommended per discharge, stop Oxybutynin. If starting to have issues holding his urine can start medication or call Dr. Peres to discuss. documented in this encounter [facility] 02-06-2023 History of Presen t illness Narrative Chief Complaint Patient presents with: Hospital Follow Up HPI John Contreras is a 87 year old male who presents here today for Hospital Discharge Follow up. Pt here today with daughters for a hospital follow up, but staying with his Son. Has questions today regarding his medication. Uro - Has appt to f/u with Dr. Peres on 03/16/23 to f/u. No longer using a catheter. Pt states that going the bathroom pretty normal with fluctuations. Overall feels he empties his bladder all the way. Son states that stream is steady. Does have nocturia. Uses a urinal at beside. No pain with urination. Ditropan was d/c on discharge and no longer taking Finasteride 5 mg. On current regimen of Avodart 0.5 mg once daily. GI - States he had normal BM today, that was normal and soft. On current regimen of Miralax daily and Senna bid. Was seen by Dr. Busby during admission. Notes generally having BM every 3 days or less. Anemia - Currently taking Ferrex-150 mg 1 caps daily. Is scheduled to see Dr. Dawn. Also for enlarged lymph nodes as well. Pt hx of CLL. GERD - Prior to starting Protonix 40 mg bid, daughters state that when he was admitted he was burping frequently. Less noticeable, not as much. Appetite - Daughter states that Mirtazapine 15 mg was started because pt was not eating. Feels that his appetite has improved and he's eating at home. Wondering if he needs to continue the medication. HTN - Hx of HTN and was previously on Losartan 25 mg once daily. Is still on Coreg 3.125 mg 1 tab po bid. Was having issues with hypotension, was told this could be related to UTI, but asking if this is UTI related or an actual issue. Did have a monitor, but not working. Nurse came in and checked this morning. Declined symptoms today. Weakness - Today pt reports feeling pretty good at present time. Pt able to get up and move around the house without issues. Able to go to the bathroom himself. Therapists are coming to the house. Hernia - Completed by Dr. Gross on 12/27/22 bilateral hernia repair. Numbness - Reports that b/l toes get numb. If he moves them enough eventually this will improve. Feels this occurs mostly during the day. Pt was discharged home from [facility] on 01/30/23 to stay with his son. Follows with Dr. Friend, Gastro. He is on 81 mg ASA, Protonix and Iron. Below copied from [facility]: Discharge Diagnosis (1) Postoperative ileus: Status: Resolved Code(s): K91.89 - Other postprocedural complications and disorders of digestive system; K56.7 - Ileus, unspecified Plan 87 year old male with below past medical history hospitalized for weakness, postoperative ileus, urinary retention, constipation, dehydration, admitted to TCU with debility, here for rehabilitation, strengthening, prior to discharge home alone. Debility - PT/OT. Pain - Tylenol 1000mg q6 prn pain (1-10). Bowel - Miralax 17gm daily, senna/colace 1 tablet bid, Magnesium citrate 300ml daily prn. Adult immunization - Administer pneumonia vaccine, covid19 vaccine, flu vaccine as appropriate. DVT prophylaxis - Hold, anemia. Coronary artery disease - Coreg 3.125mg bid, aspirin 81mg daily. Hyperlipidemia - Atorvastatin 40mg qhs. Hypothyroidism - Levothyroxine 88mcg daily. BPH - Finasteride 5mg daily, Tamsulosin 0.4mg daily, camacho out. Appetite loss - Mirtazapine 15mg qhs, stable use, GDR not recommended. Past medical history, appointments, medications, allergies reviewed. Previous Medical History PAST MEDICAL HISTORY Diagnosis Date Enlarged lymph nodes in armpit 02/11/13 Lymphoma (HCC) 11/2012 NEGATIVE MEDICAL HISTORY Previous Surgical History PAST SURGICAL HISTORY Procedure Laterality Date APPENDECTOMY BX/EXC LYMPH NODE OPEN DEEP AXILLARY NODE 02/11/13 PAST SURGICAL HISTORY OF tonsils and adenoids removed PAST SURGICAL HISTORY OF 02/22/2016 Stent placement, 2. [facility] - Dr. King Family History FAMILY HISTORY Problem Relation Age of Onset Diabetes Mother Patient Allergies ALLERGIES Allergen Reactions Baby Aspirin [Aspir* Other: See Comments Hematuria. Lisinopril Intolerance Frequent dry cough Penicillin G Hives Trees Other: See Comments Positive skin test 05-29-13. Current Medications Current Outpatient Medications on File Prior to Visit Medication Sig atorvastatin (LIPITOR) 40 mg tablet Take 1 tablet by mouth once daily. carvedilol (COREG) 3.125 mg tablet Take 1 tablet by mouth twice daily with meals. sertraline (ZOLOFT) 25 mg tablet Take 1 tablet by mouth once daily. dutasteride (AVODART) 0.5 mg capsule Take 1 capsule by mouth once daily. oxybutynin ER (DITROPAN XL) 10 mg 24 hr tablet Take 1 tablet by mouth once daily. losartan (COZAAR) 25 mg tablet Take 1 tablet by mouth once daily. (Patient not taking: Reported on 12/16/2022) levothyroxine (SYNTHROID) 88 mcg tablet Take 1 tablet by mouth once daily. Take on empty stomach. aspirin 81 mg cap Take 1 capsule by mouth once daily. No current facility-administered medications on file prior to visit. Social History Social History Tobacco Use Smoking status: Former Packs/day: 1 Types: Cigarettes Quit date: 03/20/1983 Years since quittin.9 Smokeless tobacco: Never Tobacco comments: Pt smoked on & off for 20 years. Vaping Use Vaping Use: Never used Substance Use Topics Alcohol use: Yes Comment: very seldom Drug use: No EXAM: BP 114/66 (BP Site: Right Arm, BP Position: Sitting, BP Cuff Size: Regular Adult) Pulse 68 Resp 20 Wt 78.9 kg (174 lb) BMI 24.97 kg/m General Appearance: Well appearing, alert, in no acute distress, well-hydrated, well nourished.. Neck: Supple, adenopathy noted; thyroid symmetric, normal size, no bruits. Lungs: Lungs clear to auscultation. No wheezing, rhonchi, rales.. Heart: RRR without murmur, gallop, or rubs. No ectopy. Health Maintenance List Hepatitis B Vaccine(1 of 3 - Risk 3-dose series) Never done RSV Vaccine(1 - 1-dose 60+ series) Never done Urine Albumin:Creatinine Ratio due on 08/10/2022 Diabetic Foot Exam due on 08/10/2022 Influenza Vaccine(1) due on 11/18/2022 Dilated Retinal Exam due on 11/25/2022 HbA1C due on 12/25/2022 Shingrix Vaccine(1 of 2) due on 07/23/2023 Covid-19 Vaccine(1) due on 07/23/2023 Pneumococcal Vaccine: 65+(2 - PPSV23 or PCV20) due on 07/23/2023 LDL Cholesterol due on 06/26/2023 DTaP,Tdap,Td Vaccine(2 - Td or Tdap) due on 10/31/2028 Advance Directive Discussion Completed HPV Vaccine Aged Out Data reviewed [facility] records ASSESSMENT/PLAN: 1. Hospital discharge follow-up - ICD9: V67.59, ICD10: Z09 (primary diagnosis) Records reviewed 2. Hypotensive episode - ICD9: 458.9, ICD10: I95.9 Stable now; continue same meds 3. Urinary retention - ICD9: 788.20, ICD10: R33.9 Follow with Urology 4. Constipation, unspecified constipation type - ICD9: 564.00, ICD10: K59.00 Use Miralax and senna as needed 5. Acute on chronic anemia - ICD9: 285.9, ICD10: D64.9 Check CBC and iron levels today to see if he needs to continue iron past this month 6. Gastroesophageal reflux disease without esophagitis - ICD9: 530.81, ICD10: K21.9 7. Debility - ICD9: 799.3, ICD10: R53.81 Improving 3 mo f/u; notify of labs today; fasting labs in 3 months I agree with the Chief Complaint, ROS, and Past Histories independently gathered by the clinical customer support manager and the remaining scribed note accurately describes my personal service to the patient. Medical Decision Making: Problems: Moderate: 1+ chronic illnesses with change and 2+ stable chronic illnesses Data: Unique test(s) ordered: 3+ Risk: Moderate: Drug management Medical Decision Making Level: 4 - Moderate Herminio Gr MD The documentation for this note was completed by Tish Copeland Ma acting as scribe for Herminio Gr MD. February 06, 2023 2:53 PM. Tish Copeland Ma documented in this encounter [facility] 02-02-2023 Miscellaneous Notes Noted and agree Herminio Gr MD Chandrika, nurse with [facility] calling. They will be beginning Nursing services with patient. Nursing plans to see pt 2 times per week for 4 weeks then 1 time per week for 3 weeks for disease mgmt. Patient was recently discharged from [facility] yesterday with UTI. No call back needed if provider agreeable. Velma Scott RN documented in this encounter [facility] 01-31-2023 Miscellaneous Notes Rosemary notified. Belem Fierro Ma Will call Monday due to it being after 5:00 pm. Tish Copeland Ma I agree and will follow Herminio Gr MD Rosemary @ [facility] calling to let PCP know patient is being discharged home today from [facility] TCU post hospitalization for bilateral inguinal hernia repair. He has home health orders for nursing/PT. Agree and willing to follow orders? Her phone # [phone]. Ophelia Fowler RN Fidelia from [facility] calling, asking for order for nursing and PT. Patient is going to be discharged from [facility] on 01/30. Please advise. documented in this encounter [facility] 01-12-2023 Miscellaneous Notes Patient's daughter, Jossie, called in to cancel appointments as the patient has been inpatient at [facility] since 01/03 and she does not anticipate his being discharged in time for the appointment. Trudy Merrill documented in this encounter [facility] 01-03-2023 Miscellaneous Notes Left message on daughter voicemail no labs for Drt. Dawn needed while in hospital . Will have labs completed when here for OV on 01/13. Also requested all ct and x-rays to be pushed thru to [facility] system. Ese Clark LPN I reviewed. He had a CBC in the hospital. He can have lab work done when I see him on Monday. Please have all the CT images from his current hospitalization pushed to our system. Chapin Dawn DO Patient is still in [facility] from a hernia surgery on 12/27/22 and not sure when he will be discharged and he maybe discharged to a SNF. Tri is asking if Dr. Dawn would want labs drawn while he is at [facility]. Please advise. Trudy Merrill documented in this encounter [facility] 12-26-2022 Miscellaneous Notes Sandy with [facility] called over and wanted TSH and urine labs faxed over. Faxed to # [phone]. documented in this encounter [facility] 12-23-2022 Note HNO ID: [id number] Author: Deandre Jackson APRN.[employer] Service: ? Author Type: Nurse Practitioner Type: Progress Notes Filed: 12/23/2022 5:05 PM Note Text: Subjective HPI Nontoxic-appearing male presents urgent care chief complaint lower groin pain. Duration of symptoms 1 hour. Associated symptoms increasing lower groin pain. Was seen in the ED for this previously. Diagnosed with hernia. Was able to reduce hernia. Presents today with new onset pain. Denies any GI symptoms. States pain is almost unbearable with sitting. Past medical history prescription medication use allergies reviewed. .Patient presents with: Rash: L groin x1 hour PAST MEDICAL HISTORY Diagnosis Date Enlarged lymph nodes in armpit 02/11/13 Lymphoma (HCC) 11/2012 NEGATIVE MEDICAL HISTORY PAST SURGICAL HISTORY Procedure Laterality Date APPENDECTOMY BX/EXC LYMPH NODE OPEN DEEP AXILLARY NODE 02/11/13 PAST SURGICAL HISTORY OF tonsils and adenoids removed PAST SURGICAL HISTORY OF 02/22/2016 Stent placement, 2. [facility] - Dr. King ALLERGIES Baby Aspirin [Aspirin], Lisinopril, Penicillin G, and Trees MEDICATIONS ciprofloxacin HCl (CIPRO) 500 mg tablet Take 1 tablet by mouth two times a day for 10 days. atorvastatin (LIPITOR) 40 mg tablet Take 1 tablet by mouth once daily. carvedilol (COREG) 3.125 mg tablet Take 1 tablet by mouth twice daily with meals. sertraline (ZOLOFT) 25 mg tablet Take 1 tablet by mouth once daily. dutasteride (AVODART) 0.5 mg capsule Take 1 capsule by mouth once daily. oxybutynin ER (DITROPAN XL) 10 mg 24 hr tablet Take 1 tablet by mouth once daily. losartan (COZAAR) 25 mg tablet Take 1 tablet by mouth once daily. (Patient not taking: Reported on 12/16/2022) levothyroxine (SYNTHROID) 88 mcg tablet Take 1 tablet by mouth once daily. Take on empty stomach. aspirin 81 mg cap Take 1 capsule by mouth once daily. FAMILY HISTORY Problem Relation Age of Onset Diabetes Mother Social History Tobacco Use Smoking status: Former Packs/day: 1 Types: Cigarettes Quit date: 03/20/1983 Years since quittin.7 Smokeless tobacco: Never Tobacco comments: Pt smoked on AND off for 20 years. Vaping Use Vaping Use: Never used Substance Use Topics Alcohol use: Yes Comment: very seldom Drug use: No BP 166/81 Pulse 60 Temp 36.4 ?C (97.5 ?F) Resp 18 Wt 79.9 kg (176 lb 3.2 oz) SpO2 97% BMI 25.28 kg/m? Review of Systems Constitutional: Negative for chills, fever and malaise/fatigue. HENT: Negative for congestion, ear discharge, ear pain, sinus pain and sore throat. Eyes: Negative for blurred vision, pain, discharge and redness. Respiratory: Negative for cough, hemoptysis, sputum production, shortness of breath, wheezing and stridor. Cardiovascular: Negative for chest pain. Gastrointestinal: Positive for abdominal pain. Negative for diarrhea, nausea and vomiting. Musculoskeletal: Negative for myalgias. Skin: Negative for itching and rash. Neurological: Negative for dizziness and headaches. Objective Physical Exam Constitutional: General: He is not in acute distress. Appearance: He is not toxic-appearing. HENT: Head: Normocephalic. Nose: Nose normal. Eyes: Pupils: Pupils are equal, round, and reactive to light. Cardiovascular: Rate and Rhythm: Normal rate. Pulmonary: Effort: Pulmonary effort is normal. No respiratory distress. Abdominal: Tenderness: There is abdominal tenderness. There is guarding. There is no rebound. Comments: Large bulging area noted highlighted area. Significant tenderness with palpation. Musculoskeletal: Cervical back: Normal range of motion. Skin: General: Skin is warm and dry. Neurological: General: No focal deficit present. Mental Status: He is alert. ASSESSMENT/PLAN: 1. Abdominal pain, unspecified abdominal location - ICD9: 789.00, ICD10: R10.9 With significant abdominal pain with palpation concerned about possible incarcerated hernia. Was referred to ED for further evaluation care. Patient verbalized understand agrees with plan of care. Deandre Jackson APRN.[facility] 12-23-2022 History of Presen t illness Narrative Images from the original note were not included. Subjective HPI Nontoxic-appearing male presents urgent care chief complaint lower groin pain. Duration of symptoms 1 hour. Associated symptoms increasing lower groin pain. Was seen in the ED for this previously. Diagnosed with hernia. Was able to reduce hernia. Presents today with new onset pain. Denies any GI symptoms. States pain is almost unbearable with sitting. Past medical history prescription medication use allergies reviewed. .Patient presents with: Rash: L groin x1 hour PAST MEDICAL HISTORY Diagnosis Date Enlarged lymph nodes in armpit 02/11/13 Lymphoma (HCC) 11/2012 NEGATIVE MEDICAL HISTORY PAST SURGICAL HISTORY Procedure Laterality Date APPENDECTOMY BX/EXC LYMPH NODE OPEN DEEP AXILLARY NODE 02/11/13 PAST SURGICAL HISTORY OF tonsils and adenoids removed PAST SURGICAL HISTORY OF 02/22/2016 Stent placement, 2. [facility] - Dr. King ALLERGIES Baby Aspirin [Aspirin], Lisinopril, Penicillin G, and Trees MEDICATIONS ciprofloxacin HCl (CIPRO) 500 mg tablet Take 1 tablet by mouth two times a day for 10 days. atorvastatin (LIPITOR) 40 mg tablet Take 1 tablet by mouth once daily. carvedilol (COREG) 3.125 mg tablet Take 1 tablet by mouth twice daily with meals. sertraline (ZOLOFT) 25 mg tablet Take 1 tablet by mouth once daily. dutasteride (AVODART) 0.5 mg capsule Take 1 capsule by mouth once daily. oxybutynin ER (DITROPAN XL) 10 mg 24 hr tablet Take 1 tablet by mouth once daily. losartan (COZAAR) 25 mg tablet Take 1 tablet by mouth once daily. (Patient not taking: Reported on 12/16/2022) levothyroxine (SYNTHROID) 88 mcg tablet Take 1 tablet by mouth once daily. Take on empty stomach. aspirin 81 mg cap Take 1 capsule by mouth once daily. FAMILY HISTORY Problem Relation Age of Onset Diabetes Mother Social History Tobacco Use Smoking status: Former Packs/day: 1 Types: Cigarettes Quit date: 03/20/1983 Years since quittin.7 Smokeless tobacco: Never Tobacco comments: Pt smoked on & off for 20 years. Vaping Use Vaping Use: Never used Substance Use Topics Alcohol use: Yes Comment: very seldom Drug use: No BP 166/81 Pulse 60 Temp 36.4 C (97.5 F) Resp 18 Wt 79.9 kg (176 lb 3.2 oz) SpO2 97% BMI 25.28 kg/m Review of Systems Constitutional: Negative for chills, fever and malaise/fatigue. HENT: Negative for congestion, ear discharge, ear pain, sinus pain and sore throat. Eyes: Negative for blurred vision, pain, discharge and redness. Respiratory: Negative for cough, hemoptysis, sputum production, shortness of breath, wheezing and stridor. Cardiovascular: Negative for chest pain. Gastrointestinal: Positive for abdominal pain. Negative for diarrhea, nausea and vomiting. Musculoskeletal: Negative for myalgias. Skin: Negative for itching and rash. Neurological: Negative for dizziness and headaches. Objective Physical Exam Constitutional: General: He is not in acute distress. Appearance: He is not toxic-appearing. HENT: Head: Normocephalic. Nose: Nose normal. Eyes: Pupils: Pupils are equal, round, and reactive to light. Cardiovascular: Rate and Rhythm: Normal rate. Pulmonary: Effort: Pulmonary effort is normal. No respiratory distress. Abdominal: Tenderness: There is abdominal tenderness. There is guarding. There is no rebound. Comments: Large bulging area noted highlighted area. Significant tenderness with palpation. Musculoskeletal: Cervical back: Normal range of motion. Skin: General: Skin is warm and dry. Neurological: General: No focal deficit present. Mental Status: He is alert. ASSESSMENT/PLAN: 1. Abdominal pain, unspecified abdominal location - ICD9: 789.00, ICD10: R10.9 With significant abdominal pain with palpation concerned about possible incarcerated hernia. Was referred to ED for further evaluation care. Patient verbalized understand agrees with plan of care. Deandre Jackson APRN.ARPIT documented in this encounter [facility] 12-20-2022 Miscellaneous Notes Pt and his daughter called and is notified of providers results and instructions. They voice understanding. Daughter reports Pt was in the ER last night for his hernia, and he has seen Dr Peres and he is filled in on everything. Mili Dorantes RN Second attempt to reach patient with no answer. Left additional VM to return call to office to discuss results. KODY Hernandez LM for patient to contact office to inform of the below. Fide Allen MA Can you please call the patient and family and let them know I reviewed his urine results. Urine culture came back negative for any bacterial growth, he may stop the antibiotic. However the microanalysis does show blood noted in the urine. I would recommend that he follow-up with his urologist. Stay well-hydrated throughout the day. Please let me know if they have any additional questions. Thank you. Nicol Faria APRN.ARPIT documented in this encounter [facility] 12-17-2022 Miscellaneous Notes Patient notified and verbalized understanding. Patient had no further questions at this time. \ Belem Cortez LPN 12/17/2022 3:28 PM Please help to inform family, given weight loss, will hold off on donepezil, thank you Juju Tim DO Pt's daughter calling in to state pt has lost about 7lbs since last visit on Aricept. Pt has finished prescription but daughter is cautious to renew it due to this side effect. Pls advise. Next appt is 02/03/2023 documented in this encounter [facility] 12-16-2022 Note HNO ID: [id number] Author: Nicol Faria APRN.ARPIT Service: ? Author Type: Nurse Practitioner Type: Progress Notes Filed: 12/16/2022 2:30 PM Note Text: This is a 87 year old male who presents today with: Patient presents with: Follow Up: [facility] follow up HISTORY OF PRESENT ILLNESS: John Contreras is a 87 year old male. Patient presents with: Follow Up: [facility] follow up HOSPITAL/ER FOLLOW UP: Reason for visit: Hypotension/Fever Which facility: [facility] ER Date of visit: 12/08/2022-12/09/2022 Diagnosis: Acute cystitis and hypotension. Testing done: Chest x-ray normal. Urinalysis showed protein, occult blood, negative nitrate, leukocyte. Culture pending. Low potassium. Treatment given: IV Rocephin, normal saline, and 40 mEq of potassium. Given prescription for cefdinir 300 mg twice daily for 5 days on discharge. Current symptoms: Finished Cefdninir. Not complaining of any urinary symptoms. Culture results not noted from [facility]. Daughters refer that he had a fever 101.6 last night, took tylenol. No fevers since. Concerned for possible constipation. Unknown when he had his last BM. Had mild LLQ pain that was intermittent. Currently living alone. Discussion having brother move in with patient to help with care. Has been doing better with water intake. No other symptoms. PAST MEDICAL HISTORY: PAST MEDICAL HISTORY Diagnosis Date Enlarged lymph nodes in armpit 02/11/13 Lymphoma (HCC) 11/2012 NEGATIVE MEDICAL HISTORY PAST SURGICAL HISTORY Procedure Laterality Date APPENDECTOMY BX/EXC LYMPH NODE OPEN DEEP AXILLARY NODE 02/11/13 PAST SURGICAL HISTORY OF tonsils and adenoids removed PAST SURGICAL HISTORY OF 02/22/2016 Stent placement, 2. [facility] - Dr. King ALLERGIES Baby Aspirin [Aspirin], Lisinopril, Penicillin G, and Trees MEDICATIONS Current Outpatient Medications Medication Sig donepezil (ARICEPT) 5 mg tablet Take 1 tablet by mouth daily at bedtime. atorvastatin (LIPITOR) 40 mg tablet Take 1 tablet by mouth once daily. carvedilol (COREG) 3.125 mg tablet Take 1 tablet by mouth twice daily with meals. sertraline (ZOLOFT) 25 mg tablet Take 1 tablet by mouth once daily. dutasteride (AVODART) 0.5 mg capsule Take 1 capsule by mouth once daily. oxybutynin ER (DITROPAN XL) 10 mg 24 hr tablet Take 1 tablet by mouth once daily. losartan (COZAAR) 25 mg tablet Take 1 tablet by mouth once daily. levothyroxine (SYNTHROID) 88 mcg tablet Take 1 tablet by mouth once daily. Take on empty stomach. aspirin 81 mg cap Take 1 capsule by mouth once daily. No current facility-administered medications for this visit. FAMILY HISTORY Problem Relation Age of Onset Diabetes Mother Social History Tobacco Use Smoking status: Former Packs/day: 1 Types: Cigarettes Quit date: 03/20/1983 Years since quittin.7 Smokeless tobacco: Never Tobacco comments: Pt smoked on AND off for 20 years. Vaping Use Vaping Use: Never used Substance Use Topics Alcohol use: Yes Comment: very seldom Drug use: No REVIEW OF SYSTEMS GENERAL: + Fever HEENT: Negative for frequent or significant headaches, No changes in hearing or vision. NECK: Negative for lumps, goiter, pain and significant neck swelling RESPIRATORY: Negative for cough, hemoptysis, wheezing, dyspnea or shortness of breath CARDIOVASCULAR: Negative for chest pain, leg swelling, orthopnea, or palpitations GI: No nausea, vomiting, or diarrhea/constipation. No hematochezia/melena. No heartburn or reflux symptoms. : No history of dysuria, frequency or incontinence MUSCULOSKELETAL: Negative for joint pain or swelling. SKIN: Negative for lesions, rash, and itching ENDOCRINE: Negative for cold or heat intolerance, polyuria, polydipsia and goiter NEURO: No history of headaches, syncope, paralysis, seizures or tremors MOOD: Negative for depression, anxiety, or suicidal ideation. EXAM: BP 98/58 Pulse 65 Resp 16 Wt 77.6 kg (171 lb) SpO2 97% BMI 24.54 kg/m? PHYSICAL EXAM: General Appearance: Well appearing, alert, in no acute distress, well-hydrated, well nourished. Skin: Skin color, texture, turgor normal, no suspicious rashes or lesions. Head: Normocephalic, no masses, lesions, tenderness or abnormalities. Eyes: Anicteric sclera. Extraocular movements are intact. Lungs: Lungs clear to auscultation. No wheezing, rhonchi, rales. Heart: RRR without murmur, gallop, or rubs. No ectopy. Abdomen: Normal abdominal exam, Abdomen soft, non-tender. Bowel sounds normal. No masses, organomegaly, Negative CVA tenderness. Extremities: No deformities, edema, skin discoloration, clubbing or cyanosis. Good capillary refill. Peripheral Pulses: Normal, Capillary refill <2secs, strong peripheral pulses, Pulses palpable. Neurologic: Gait normal. Sensation grossly intact. UA: + Moderate blood and protein. ASSESSMENT/PLAN: 1. Hospital discharge follow-up - ICD9: V67.59, ICD10: Z09 (primary diagnosis) - Still schreiber (more content not included)... [facility] 12-16-2022 Instructions Nicol Faria APRN.ARPIT - 12/16/2022 1:28 PM EDT Urine will be sent off for culture Start Cipro, take twice daily with food. Stay well hydrated. If needed may use Miralax 1-2 times per day for constipation. Red flag symptoms go to ER Follow up pending test results. documented in this encounter [facility] 12-16-2022 History of Presen t illness Narrative This is a 87 year old male who presents today with: Patient presents with: Follow Up: [facility] follow up HISTORY OF PRESENT ILLNESS: John Contreras is a 87 year old male. Patient presents with: Follow Up: [facility] follow up HOSPITAL/ER FOLLOW UP: Reason for visit: Hypotension/Fever Which facility: [facility] ER Date of visit: 12/08/2022-12/09/2022 Diagnosis: Acute cystitis and hypotension. Testing done: Chest x-ray normal. Urinalysis showed protein, occult blood, negative nitrate, leukocyte. Culture pending. Low potassium. Treatment given: IV Rocephin, normal saline, and 40 mEq of potassium. Given prescription for cefdinir 300 mg twice daily for 5 days on discharge. Current symptoms: Finished Cefdninir. Not complaining of any urinary symptoms. Culture results not noted from [facility]. Daughters refer that he had a fever 101.6 last night, took tylenol. No fevers since. Concerned for possible constipation. Unknown when he had his last BM. Had mild LLQ pain that was intermittent. Currently living alone. Discussion having brother move in with patient to help with care. Has been doing better with water intake. No other symptoms. PAST MEDICAL HISTORY: PAST MEDICAL HISTORY Diagnosis Date Enlarged lymph nodes in armpit 02/11/13 Lymphoma (HCC) 11/2012 NEGATIVE MEDICAL HISTORY PAST SURGICAL HISTORY Procedure Laterality Date APPENDECTOMY BX/EXC LYMPH NODE OPEN DEEP AXILLARY NODE 02/11/13 PAST SURGICAL HISTORY OF tonsils and adenoids removed PAST SURGICAL HISTORY OF 02/22/2016 Stent placement, 2. [facility] - Dr. King ALLERGIES Baby Aspirin [Aspirin], Lisinopril, Penicillin G, and Trees MEDICATIONS Current Outpatient Medications Medication Sig donepezil (ARICEPT) 5 mg tablet Take 1 tablet by mouth daily at bedtime. atorvastatin (LIPITOR) 40 mg tablet Take 1 tablet by mouth once daily. carvedilol (COREG) 3.125 mg tablet Take 1 tablet by mouth twice daily with meals. sertraline (ZOLOFT) 25 mg tablet Take 1 tablet by mouth once daily. dutasteride (AVODART) 0.5 mg capsule Take 1 capsule by mouth once daily. oxybutynin ER (DITROPAN XL) 10 mg 24 hr tablet Take 1 tablet by mouth once daily. losartan (COZAAR) 25 mg tablet Take 1 tablet by mouth once daily. levothyroxine (SYNTHROID) 88 mcg tablet Take 1 tablet by mouth once daily. Take on empty stomach. aspirin 81 mg cap Take 1 capsule by mouth once daily. No current facility-administered medications for this visit. FAMILY HISTORY Problem Relation Age of Onset Diabetes Mother Social History Tobacco Use Smoking status: Former Packs/day: 1 Types: Cigarettes Quit date: 03/20/1983 Years since quittin.7 Smokeless tobacco: Never Tobacco comments: Pt smoked on & off for 20 years. Vaping Use Vaping Use: Never used Substance Use Topics Alcohol use: Yes Comment: very seldom Drug use: No REVIEW OF SYSTEMS GENERAL: + Fever HEENT: Negative for frequent or significant headaches, No changes in hearing or vision. NECK: Negative for lumps, goiter, pain and significant neck swelling RESPIRATORY: Negative for cough, hemoptysis, wheezing, dyspnea or shortness of breath CARDIOVASCULAR: Negative for chest pain, leg swelling, orthopnea, or palpitations GI: No nausea, vomiting, or diarrhea/constipation. No hematochezia/melena. No heartburn or reflux symptoms. : No history of dysuria, frequency or incontinence MUSCULOSKELETAL: Negative for joint pain or swelling. SKIN: Negative for lesions, rash, and itching ENDOCRINE: Negative for cold or heat intolerance, polyuria, polydipsia and goiter NEURO: No history of headaches, syncope, paralysis, seizures or tremors MOOD: Negative for depression, anxiety, or suicidal ideation. EXAM: BP 98/58 Pulse 65 Resp 16 Wt 77.6 kg (171 lb) SpO2 97% BMI 24.54 kg/m PHYSICAL EXAM: General Appearance: Well appearing, alert, in no acute distress, well-hydrated, well nourished. Skin: Skin color, texture, turgor normal, no suspicious rashes or lesions. Head: Normocephalic, no masses, lesions, tenderness or abnormalities. Eyes: Anicteric sclera. Extraocular movements are intact. Lungs: Lungs clear to auscultation. No wheezing, rhonchi, rales. Heart: RRR without murmur, gallop, or rubs. No ectopy. Abdomen: Normal abdominal exam, Abdomen soft, non-tender. Bowel sounds normal. No masses, organomegaly, Negative CVA tenderness. Extremities: No deformities, edema, skin discoloration, clubbing or cyanosis. Good capillary refill. Peripheral Pulses: Normal, Capillary refill <2secs, strong peripheral pulses, Pulses palpable. Neurologic: Gait normal. Sensation grossly intact. UA: + Moderate blood and protein. ASSESSMENT/PLAN: 1. Hospital discharge follow-up - ICD9: V67.59, ICD10: Z09 (primary diagnosis) - Still having on going fever since discharge. 2. Acute cystitis with hematuria - ICD9: 595.0, ICD10: N30.01 - [facility] Culture results not available. - Start Cipro - Send urine off for Micro and culture. - Red flag symptoms given to patient and family, they both verbalized understanding when to seek care. - URINALYSIS, WITH MICROSCOPIC - URINE CULTURE - CIPROFLOXACIN 500 MG TABLET 3. Acute constipation - ICD9: 564.00, ICD10: K59.00 - Stay well hydrated. - May use Miralax as needed for constipation. 4. Other specified hypotension - ICD9: 458.8, ICD10: I95.89 - Stay well hydrated. Follow up pending test results or sooner as needed. Discussed treatment plan and patient voices understanding. Patient's questions answered appropriately. Medications and potential side effects were discussed and patient voices understanding. Nicol Faria APRN.WIRE WELDER This note was partially generated using [employer] recognition system. Note was reviewed for accuracy. There may be minor misspellings or grammar miscues with [employer] voice recognition. documented in this encounter [facility] 12-08-2022 Note HNO ID: [id number] Author: Nicol Faria APRN.WIRE WELDER Service: ? Author Type: Nurse Practitioner Type: Progress Notes Filed: 12/08/2022 12:18 PM Note Text: This is a 86 year old male who presents today with: Patient presents with: Acute Visit: fever 110.8 Incontient episode. HISTORY OF PRESENT ILLNESS: John Contreras is a 86 year old male. Patient presents with: Acute Visit: fever 110.8 Incontient episode. Here in the office for fever and incontinence. Noticed yesterday he seemed flushed, fever 101.4. Woke up this morning, had trouble getting out bed this morning. Had an episode of incontinence while having difficulty getting out of bed. Has urinated twice today. Daughters refer he is not a good water drinker. Likes pop and coffee. He seems more fatigued. Denies any dysuria or cold symptoms. Gave Tylenol 1000 mg at 0400 today. PAST MEDICAL HISTORY: PAST MEDICAL HISTORY Diagnosis Date Enlarged lymph nodes in armpit 02/11/13 Lymphoma (HCC) 11/2012 NEGATIVE MEDICAL HISTORY PAST SURGICAL HISTORY Procedure Laterality Date APPENDECTOMY BX/EXC LYMPH NODE OPEN DEEP AXILLARY NODE 02/11/13 PAST SURGICAL HISTORY OF tonsils and adenoids removed PAST SURGICAL HISTORY OF 02/22/2016 Stent placement, 2. [facility] - Dr. King ALLERGIES Baby Aspirin [Aspirin], Lisinopril, Penicillin G, and Trees MEDICATIONS Current Outpatient Medications Medication Sig donepezil (ARICEPT) 5 mg tablet Take 1 tablet by mouth daily at bedtime. atorvastatin (LIPITOR) 40 mg tablet Take 1 tablet by mouth once daily. carvedilol (COREG) 3.125 mg tablet Take 1 tablet by mouth twice daily with meals. sertraline (ZOLOFT) 25 mg tablet Take 1 tablet by mouth once daily. dutasteride (AVODART) 0.5 mg capsule Take 1 capsule by mouth once daily. oxybutynin ER (DITROPAN XL) 10 mg 24 hr tablet Take 1 tablet by mouth once daily. losartan (COZAAR) 25 mg tablet Take 1 tablet by mouth once daily. levothyroxine (SYNTHROID) 88 mcg tablet Take 1 tablet by mouth once daily. Take on empty stomach. aspirin 81 mg cap Take 1 capsule by mouth once daily. No current facility-administered medications for this visit. FAMILY HISTORY Problem Relation Age of Onset Diabetes Mother Social History Tobacco Use Smoking status: Former Packs/day: 1 Types: Cigarettes Quit date: 03/20/1983 Years since quittin.7 Smokeless tobacco: Never Tobacco comments: Pt smoked on AND off for 20 years. Vaping Use Vaping Use: Never used Substance Use Topics Alcohol use: Yes Comment: very seldom Drug use: No REVIEW OF SYSTEMS GENERAL: + Fever HEENT: Negative for frequent or significant headaches, No changes in hearing or vision. NECK: Negative for lumps, goiter, pain and significant neck swelling RESPIRATORY: Negative for cough, hemoptysis, wheezing, dyspnea or shortness of breath CARDIOVASCULAR: Negative for chest pain, leg swelling, orthopnea, or palpitations GI: No nausea, vomiting, or diarrhea/constipation. No hematochezia/melena. No heartburn or reflux symptoms. : No history of dysuria, frequency or incontinence MUSCULOSKELETAL: Negative for joint pain or swelling. SKIN: Negative for lesions, rash, and itching ENDOCRINE: Negative for cold or heat intolerance, polyuria, polydipsia and goiter NEURO: No history of headaches, syncope, paralysis, seizures or tremors MOOD: Negative for depression, anxiety, or suicidal ideation. EXAM: BP (!) 78/50 Pulse 71 Temp 36.6 ?C (97.8 ?F) Resp 16 Wt 80.3 kg (177 lb) SpO2 96% BMI 25.40 kg/m? PHYSICAL EXAM: General Appearance: Ill appearing/fatigue, in no acute distress, well-hydrated, well nourished. Skin: Skin color, texture, turgor normal, no suspicious rashes or lesions. Head: Normocephalic, no masses, lesions, tenderness or abnormalities. Eyes: Anicteric sclera. Extraocular movements are intact. Ears: External ears normal, canals clear. TM's pearly fuentes. Oropharynx: Lips, mucosa, and tongue normal, teeth and gums normal, oropharynx normal. Neck: Supple, no adenopathy; thyroid symmetric, normal size, no bruits. Lungs: Lungs clear to auscultation. No wheezing, rhonchi, rales. Heart: RRR without murmur, gallop, or rubs. No ectopy. Abdomen: Normal abdominal exam, Abdomen soft, non-tender. Bowel sounds normal. No masses, organomegaly, Negative CVA tenderness. Extremities: No deformities, edema, skin discoloration, clubbing or cyanosis. Good capillary refill. Peripheral Pulses: Normal, Capillary refill <2secs, strong peripheral pulses, Pulses palpable. Neurologic: Gait normal. Sensation grossly intact. Unable to provide urine sample. ASSESSMENT/PLAN: 1. Hypotensive episode - ICD9: 458.9, ICD10: I95.9 (primary diagnosis) - Checked blood pressure three times and got 78/50. - Due to hypotension and possible urinary complication referred to ER for further evaluation. 2. Urinary retention - ICD9: 788.20, ICD10: R33.9 - Same plan as #1. (more content not included)... [facility] 11-17-2022 Note HNO ID: [id number] Author: Chandrika Mason RT(Amish) Service: ? Author Type: Technologist Type: Progress Notes Filed: 11/17/2022 7:48 AM Note Text: Radiology Service Progress Note PATIENT NAME: John Contreras DATE OF SERVICE: November 17, 2022 TIME: 7:48 AM PATIENT IDENTITY VERIFICATION COMPLETED USING TWO (2) IDENTIFIERS: Name and Date of confirmed by patient verbally. FALL SCREENING: Has the patient had 2 falls in the last year or 1 fall with injury or currently using an Ambulatory Assistive Device (Walker, Cane, Wheelchair, Crutches, etc.)? No PATIENT GENDER DATA: Male PATIENT RELEVANT IMPLANT DATA REVIEWED: Yes RADIOLOGY DEPARTMENT: MR; Exam(s) Completed: Head: Routine Brain PERIPHERAL IV DATA: Not applicable SIGNED BY: RT Lakshmi(Amish) November 17, 2022 7:48 AM [facility] 11-17-2022 History of Presen t illness Narrative Radiology Service Progress Note PATIENT NAME: John Contreras DATE OF SERVICE: November 17, 2022 TIME: 7:48 AM PATIENT IDENTITY VERIFICATION COMPLETED USING TWO (2) IDENTIFIERS: Name and Date of confirmed by patient verbally. FALL SCREENING: Has the patient had 2 falls in the last year or 1 fall with injury or currently using an Ambulatory Assistive Device (Walker, Cane, Wheelchair, Crutches, etc.)? No PATIENT GENDER DATA: Male PATIENT RELEVANT IMPLANT DATA REVIEWED: Yes RADIOLOGY DEPARTMENT: MR; Exam(s) Completed: Head: Routine Brain PERIPHERAL IV DATA: Not applicable SIGNED BY: RT Lakshmi(R) November 17, 2022 7:48 AM documented in this encounter [facility] 11-11-2022 Note HNO ID: [id number] Author: Juju Tim DO Service: ? Author Type: Physician Type: Progress Notes Filed: 11/11/2022 4:52 PM Note Text: Juju Tim DO [facility] [address] [place] [address] Visit Date: November 10, 2022 Name: Mr.Clyde Abdiaziz Contreras Date of : 1935 MRN/E #: [id number] Chief Complaint: Patient presents with: Geriatrics: Depression f/u Subjective Mr. John Contreras is a 86 year old gentleman here for follow up visit. he is here with daughter. HPI Initial geriatric assessment on 10/14/2022, cognitive testing showed impairments in attention, mental flexibility, executive function, memory preserved, overall cognitive test performance was in the 1st percentile when compared to individuals of a similar age and gender, suggesting presence of cognitive impairment, GDS 6/15 suggesting mild depression, JESSEE-7 15/21 suggesting severe anxiety, Given testing results, history, most suspicious for mild dementia, highly concerns for vascular dementia given rapid decline, however, cannot rule out uncontrolled anxiety as confounding factor, started Zoloft for mood, patient with weight loss, hesitate to start ChlI to slow down dementia progression in the setting of uncontrolled anxiety, will repeat cognitive testing in 6 months, if shows decline, may consider start ChlI Today, patient has not been taking Zoloft, per family, mood has been stable and improving, patient has no acute concerns. MRI still pending Mood Evaluation and Screening GDS: Geriatric Depression Scale GDS Total Score GDS Score Assessment 11/11/2022 4 0-5 points is normal 10/14/2022 6 5 points or above suggests depression Normal Mild Moderate Severe 0-4 5-8 9-11 12+ JESSEE-7: JESSEE - 7 SCORES 10/14/2022 11/11/2022 JESSEE-7 Score 15 3 (0-4) minimal anxiety, (5-9) mild anxiety, (10-14) moderate anxiety, (15-21) severe anxiety Review of Systems Constitutional: Negative for activity change, appetite change, chills, fatigue, fever and unexpected weight change. HENT: Positive for hearing loss. Negative for facial swelling, sinus pressure, sinus pain, sore throat, tinnitus, trouble swallowing and voice change. Eyes: Negative for pain, discharge, itching and visual disturbance. Respiratory: Negative for cough, chest tightness, shortness of breath, wheezing and stridor. Cardiovascular: Negative for chest pain, palpitations and leg swelling. Gastrointestinal: Negative for abdominal pain, anal bleeding, blood in stool, constipation, diarrhea, nausea and vomiting. Endocrine: Negative for polyuria. Genitourinary: Negative for difficulty urinating, dysuria, flank pain, frequency, hematuria and urgency. Musculoskeletal: Negative for back pain, gait problem and joint swelling. Skin: Negative for color change and rash. Neurological: Negative for dizziness, tremors, syncope, speech difficulty, weakness, light-headedness, numbness and headaches. Psychiatric/Behavioral: Negative for agitation, behavioral problems, confusion, decreased concentration, hallucinations, self-injury, sleep disturbance and suicidal ideas. The patient is not nervous/anxious. ALLERGIES Allergen Reactions Baby Aspirin [Aspir* Other: See Comments Hematuria. Lisinopril Intolerance Frequent dry cough Penicillin G Hives Trees Other: See Comments Positive skin test 05-29-13. PAST MEDICAL HISTORY Diagnosis Date Enlarged lymph nodes in armpit 02/11/13 Lymphoma (HCC) 11/2012 NEGATIVE MEDICAL HISTORY PAST SURGICAL HISTORY Procedure Laterality Date APPENDECTOMY BX/EXC LYMPH NODE OPEN DEEP AXILLARY NODE 02/11/13 PAST SURGICAL HISTORY OF tonsils and adenoids removed PAST SURGICAL HISTORY OF 02/22/2016 Stent placement, 2. [facility] - Dr. King Social History Tobacco Use Smoking status: Former Packs/day: 1 Types: Cigarettes Quit date: 03/20/1983 Years since quittin.6 Smokeless tobacco: Never Tobacco comments: Pt smoked on AND off for 20 years. Vaping Use Vaping Use: Never used Substance Use Topics Alcohol use: Yes Comment: very seldom Drug use: No FAMILY HISTORY Problem Relation Age of Onset Diabetes Mother Current Outpatient Medications Medication Sig donepezil (ARICEPT) 5 mg tablet Take 1 tablet by mouth daily at bedtime. ALPRAZolam (XANAX) 0.25 mg tablet Take 1 tablet by mouth one time only for 1 dose. Given prior to MRI if with significant anxiety atorvastatin (LIPITOR) 40 mg tablet Take 1 tablet by mouth once daily. carvedilol (COREG) 3.125 mg tablet Take 1 tablet by mouth twice daily with meals. sertraline (ZOLOFT) 25 mg tablet Take 1 tablet by mouth once daily. dutasteride (AVODART) 0.5 mg capsule Take 1 capsule by mouth once daily. oxybutynin ER (DITROPAN XL) 10 mg 24 hr tablet Take 1 tablet by mouth once daily. losartan (COZAAR) 25 mg tablet Take 1 tablet by mouth once daily. levothy (more content not included)... [facility] 11-11-2022 Instructions Juju Tim DO - 11/11/2022 4:42 PM EDT Images from the original note were not included. Tips to help with your memory and cognition 1. COGNITIVE STIMULATION Keep your brain active by doing mentally stimulating activities for 30 minutes twice a day. Here are few suggested activities: - crossword puzzles - jigsaw puzzles - Fooooou games - word finding - problem solving activities - learn a new hobby or take a class 2. SOCIAL INTERACTION Talk to a friend, family member or neighbor at least once a day. Engage in community activities. Consider joining your local senior citizen center. 3. PHYSICAL ACTIVITY Make sure you move your body every day. You may vary your exercises to help keep your brain sharp. Always check with your health care provider before starting a new exercise program. Try to walk at least 30 minutes 5 times per week. You may also consider trying Andrea Chi or Yoga to help with balance and strength training 4. DIET/NUTRITION Follow a Mediterranean diet, including fruits, vegetables, lean meats, fish. Drink atleast six (8 ounce) cups of water daily to avoid dehydration Reduce your intake of fat and cholesterol rich food. Avoid alcohol The MIND diet (Mediterranean-DASH Intervention for Neurodegenerative Delay) has been associated with a reduced incidence of cognitive impairment and Alzheimer disease Stages and Treatment of Alzheimer's Disease Alzheimer's disease (AD) is a type of progressive deterioration of the structure and function of the brain. In the prodromal stage, a person may function appropriately in his or her home and work environment, and abnormalities in cognition may be apparent only on detailed neuropsychologic testing. Eventually, cognitive deficits are noticeable. A person with Alzheimer's disease early on has difficulty with: short-term memory making lists keeping track of complicated appointments or social schedules organizing a vacation trip following directions using a map coordinating a multi-course holiday family dinner. Later in the disease, there are often problems with long-term memory, mood, apathy, agitation, and abnormal motor activity (e.g., pacing). Affected people have trouble using appliances--first, complex ones, such as the car or professor of mechanical engineering; later, the telephone; and lastly even table utensils. Not every memory problem becomes dementia, and not every cause of dementia is AD. Dementia means that there is a loss of memory and at least one other aspect of cognition, such as abstract thinking, personality, or executive (organizational) ability, and that the loss interferes with function. Dementia cannot be diagnosed when a person becomes suddenly ill, such as with a fever, infection, metabolic derangement, etc. Alzheimer's disease is the most common cause of dementia. However, stroke, alcohol, Parkinson's disease, and other medical conditions can cause dementia as well. Alzheimer's disease has both a genetic and an environmental component. The genetic component is very strong in those diagnosed with AD in their 40s or early 50s. However, these represent a small fraction of the AD population. Most people with Alzheimer's disease develop symptoms in their 70s and 80s, and the genetic component is much weaker at this age. Only 50% of identical twins of older Alzheimer's patients are diagnosed with Alzheimer's disease. Health and environmental factors, such as mental and physical activity, and treatment of medical conditions such as hypertension and diabetes play a strong role in postponing AD symptoms. Genetic testing for Alzheimer's disease occurring after age 60 is not generally recommended. Stages of Alzheimer's disease Prodomal: This stage is usually not diagnosed because people in this stage are functioning at a high level. Occasionally, they may report having more problems than usual with short-term memory, or remembering names or where they placed their belongings. However, they balance their checkbook, keep appointments, and continue to drive. People compensate by giving themselves more time to adapt and perhaps by writing reminder notes. Some people may become anxious about their memory deficits. There is no specific treatment except for lifestyle. Mild: In this stage, cognitive deficits are noticeable in demanding situations. The stewart to diagnosing mild dementia is that function at home or work is impaired, although slightly. Affected people begin to need help with complicated tasks such as planning a alliance party or handling finances. They may have problems remembering life events (hospitalizations, medical conditions, educational/job milestones), have trouble concentrating, and may have trouble traveling, particularly to unfamiliar places. Most people in the mild stage have no problem with familiar faces, are not disoriented with respect to time, and can usually travel to familiar places. However, people with Alzheimer's tend to back away from dealing with difficult or challenging situations. Their mood may be a bit flat. Most are not aware of the extent of their deficits. They may say they have the same memory problems everyone else their age has, but they really do not understand the extent of their loss. Many persons with mild Alzheimer's disease may still be driving. They should be encouraged not to drive. If they insist, they should be evaluated by a cdl flatbed truck driver occupational rehabilitation aide to assess their driving risks. They might get therapy to improve their driving ability and lower their risks. Medicare covers an Occupational Therapy evaluation for certain diagnoses, such as stroke or lack of coordination. If Medicare does not cover it for you in your region of the country, consider an evaluation by a private driving school from an instructor who is certified in cdl flatbed truck driver rehabilitation. Moderate: People in the moderate stage of Alzheimer's require assistance. They need help choosing proper attire and may need help putting clothes on in the right order. Kitchen safety (e.g., fire from an unattended pot on the stove) may be an issue, and appliances such as the stove may need to be disabled. If still driving, they should be persuaded to retire from driving. They also may not be able to manage their medications or finances safely. While there is some disorientation with time, such as remembering that the Cold War followed World War II, people with moderate dementia can still remember major information about themselves, their families, and others. There may be delusional behavior, depression, apathy, or anxiety as the disease progresses. Moderately severe: As memory loss progresses, a person may not consistently recognize his or her children or spouse, or may confuse them with other family members. Functionally, the person loses skills in dressing, bathing, and then toileting. Urinary incontinence and, later, fecal incontinence occur. Sleep is often disturbed. Severe: The person's speech ability becomes limited to about half dozen words, and eventually, intelligible vocabulary decreases to a single word. He or she has lost or will lose the ability to walk, sit up, smile, and eventually hold up his or her head. The brain now appears unable to tell the body what to do. The person may sit on the toilet, having forgotten how to move his or her bowels, or may be incontinent prior to reaching the toilet. A person with severe dementia will hold food in his or her mouth, having forgotten how to swallow. Weight loss, aspiration, and bedsores may occur as the disease progresses. Hospice care may be appropriate at this time for comfort and palliation. Treatment of Alzheimer's disease Lifestyle: These recommendations are appropriate at all stages of disease, but need to be tailored to the individual's preferences and abilities. In general, healthy lifestyle changes that protect the body from strokes and heart attacks tend to protect the brain from cognitive decline. Older adults who exercise, maintain their normal body weight, avoid head trauma, have no more than one standard alcoholic beverage daily, and stay socially engaged maintain their cognitive abilities best. Adults in early stages could attend courses at a local community college, take classes at a senior center, and/or participate in library book clubs. Those with moderate or severe disease may benefit from organized activities in an adult daycare setting. The Office of Aging and the Alzheimer's Association in your community can provide information on local sites. Also, treatment of hypertension is important in protecting the brain against cognitive decline, as is prevention and treatment of diabetes with exercise and medications. Cholinesterase inhibitors: These medications are approved by the FDA to treat the symptoms of mild to moderate Alzheimer's disease (AD). Cholinesterase inhibitors include: Donepezil (Aricept ) (FDA-approved for all stages of AD) Rivastigmine (Exelon ) and Exelon patch Galantamine (Razadyne ) Cholinesterase inhibitors block the action of acetylcholinesterase, the enzyme responsible for the destruction of acetylcholine. Acetylcholine is one of several neurotransmitters in the brain (chemicals that nerve cells use to communicate with one another). Reduced levels of acetylcholine in the brain are believed to be responsible for some of the symptoms of Alzheimer's disease. By blocking the enzyme that destroys acetylcholine, these medications increase the concentration of acetylcholine in the brain. This increase is believed to be responsible for the improvement in memory and cognition seen with these medications. The improvement is modest. Researchers think that people on a cholinesterase inhibitor may still experience benefits in function and behavior when maintained on these medications for a prolonged period of time. These benefits may help reduce caregiver burden, delay mcc placement, and improve neuropsychiatric problems (such as apathy and agitation). Memantine (Namenda ): Memantine is approved by the FDA for treatment of moderate to severe Alzheimer's disease. It blocks the neurotransmitter glutamate from activating NMDA receptors on nerve cells, keeping the cells healthier. This mechanism is different than that of the cholinesterase inhibitors. Patients with moderate to severe Alzheimer's who were treated with memantine performed better on scales measuring the common activities of daily living such as eating, walking, toileting, bathing, and dressing compared with patients taking placebo. Patient with lower functioning may benefit the most. Memantine appears to be safe and effective alone or when used together with a cholinesterase inhibitor. It may also help with neuropsychiatric symptoms. However, like with the cholinesterase inhibitors, the effect on cognition and abilities is modest and declines after about six months. Research is ongoing to determine long-term benefits. Miscellaneous: The evidence supporting a benefit for the herbal product gingko biloba is weak. Persons with Vitamin D deficiency may have more cognitive deficits than persons with normal levels of Vitamin D. There is no evidence that treating Vitamin D improves cognition. However, treating Vitamin D deficiency has other benefits, such as reducing the risks of falls and hip fractures. Older adults should take 1,000 units of Vitamin D (cholecalciferol) daily. Vitamin E in high doses for older adults with moderate AD may delay mcc entry but is associated with an increased risk of in epidemiological studies. Selegiline may have a benefit equivalent to Vitamin E but has more side effects. Estrogen does not improve cognition when administered to a woman with Alzheimer's disease; it may increase the risk of dementia in healthy women. Studies of nonsteroidal anti-inflammatory medications such as Naprosyn and Celebrex in persons with cognitive impairment demonstrate no benefit in preventing AD, and may cause kidney and stomach problems in older adults. Interventional studies with cholesterol-lowering medications, psychotropic stimulants, certain diabetes medications, antioxidants, and folic acid supplements are ongoing but at this time are not proven to have benefit. References National [place] on Aging. Alzheimer's Disease Education & Referral Center. www.lucy.nih.gov Accessed 10/15/2010 Alzheimer's Association. Alzheimer's Disease: Stages of Alzheimer's Disease. www.alz.org Accessed 10/15/2010 DEVAUGHN Pisano. Alzheimer's Disease. New Century Journal of Medicine 2003; Isauro 1;351(1):56-67 Copyright 4381-4188 The [facility]. All rights reserved This information is provided by the [facility] and is not intended to replace the medical advice of your doctor or health care provider. Please consult your health care provider for advice about a specific medical condition. For additional health information, please contact the Center for Consumer Health Information at the [facility] or toll-free extension [phone]. If you prefer, you may visit [email or web address] or [email or web address]. This document was last reviewed on: 2010 index#[id number] documented in this encounter [facility] 11-11-2022 History of Presen t illness Narrative Images from the original note were not included. Juju Tim DO [facility] [address] [place] [address] [address] [place] [address] Visit Date: November 10, 2022 Name: Mr.Clyde Abdiaziz Contreras Date of : 1935 MRN/E #: [id number] Chief Complaint: Patient presents with: Geriatrics: Depression f/u Subjective Mr. John Contreras is a 86 year old gentleman here for follow up visit. he is here with daughter. HPI Initial geriatric assessment on 10/14/2022, cognitive testing showed impairments in attention, mental flexibility, executive function, memory preserved, overall cognitive test performance was in the 1st percentile when compared to individuals of a similar age and gender, suggesting presence of cognitive impairment, GDS 6/15 suggesting mild depression, JESSEE-7 15/21 suggesting severe anxiety, Given testing results, history, most suspicious for mild dementia, highly concerns for vascular dementia given rapid decline, however, cannot rule out uncontrolled anxiety as confounding factor, started Zoloft for mood, patient with weight loss, hesitate to start ChlI to slow down dementia progression in the setting of uncontrolled anxiety, will repeat cognitive testing in 6 months, if shows decline, may consider start ChlI Today, patient has not been taking Zoloft, per family, mood has been stable and improving, patient has no acute concerns. MRI still pending Mood Evaluation and Screening GDS: Geriatric Depression Scale GDS Total Score GDS Score Assessment 11/11/2022 4 0-5 points is normal 10/14/2022 6 5 points or above suggests depression Normal Mild Moderate Severe 0-4 5-8 9-11 12+ JESSEE-7: JESSEE - 7 SCORES 10/14/2022 11/11/2022 JESSEE-7 Score 15 3 (0-4) minimal anxiety, (5-9) mild anxiety, (10-14) moderate anxiety, (15-21) severe anxiety Review of Systems Constitutional: Negative for activity change, appetite change, chills, fatigue, fever and unexpected weight change. HENT: Positive for hearing loss. Negative for facial swelling, sinus pressure, sinus pain, sore throat, tinnitus, trouble swallowing and voice change. Eyes: Negative for pain, discharge, itching and visual disturbance. Respiratory: Negative for cough, chest tightness, shortness of breath, wheezing and stridor. Cardiovascular: Negative for chest pain, palpitations and leg swelling. Gastrointestinal: Negative for abdominal pain, anal bleeding, blood in stool, constipation, diarrhea, nausea and vomiting. Endocrine: Negative for polyuria. Genitourinary: Negative for difficulty urinating, dysuria, flank pain, frequency, hematuria and urgency. Musculoskeletal: Negative for back pain, gait problem and joint swelling. Skin: Negative for color change and rash. Neurological: Negative for dizziness, tremors, syncope, speech difficulty, weakness, light-headedness, numbness and headaches. Psychiatric/Behavioral: Negative for agitation, behavioral problems, confusion, decreased concentration, hallucinations, self-injury, sleep disturbance and suicidal ideas. The patient is not nervous/anxious. ALLERGIES Allergen Reactions Baby Aspirin [Aspir* Other: See Comments Hematuria. Lisinopril Intolerance Frequent dry cough Penicillin G Hives Trees Other: See Comments Positive skin test 05-29-13. PAST MEDICAL HISTORY Diagnosis Date Enlarged lymph nodes in armpit 02/11/13 Lymphoma (HCC) 11/2012 NEGATIVE MEDICAL HISTORY PAST SURGICAL HISTORY Procedure Laterality Date APPENDECTOMY BX/EXC LYMPH NODE OPEN DEEP AXILLARY NODE 02/11/13 PAST SURGICAL HISTORY OF tonsils and adenoids removed PAST SURGICAL HISTORY OF 02/22/2016 Stent placement, 2. [facility] - Dr. King Social History Tobacco Use Smoking status: Former Packs/day: 1 Types: Cigarettes Quit date: 03/20/1983 Years since quittin.6 Smokeless tobacco: Never Tobacco comments: Pt smoked on & off for 20 years. Vaping Use Vaping Use: Never used Substance Use Topics Alcohol use: Yes Comment: very seldom Drug use: No FAMILY HISTORY Problem Relation Age of Onset Diabetes Mother Current Outpatient Medications Medication Sig donepezil (ARICEPT) 5 mg tablet Take 1 tablet by mouth daily at bedtime. ALPRAZolam (XANAX) 0.25 mg tablet Take 1 tablet by mouth one time only for 1 dose. Given prior to MRI if with significant anxiety atorvastatin (LIPITOR) 40 mg tablet Take 1 tablet by mouth once daily. carvedilol (COREG) 3.125 mg tablet Take 1 tablet by mouth twice daily with meals. sertraline (ZOLOFT) 25 mg tablet Take 1 tablet by mouth once daily. dutasteride (AVODART) 0.5 mg capsule Take 1 capsule by mouth once daily. oxybutynin ER (DITROPAN XL) 10 mg 24 hr tablet Take 1 tablet by mouth once daily. losartan (COZAAR) 25 mg tablet Take 1 tablet by mouth once daily. levothyroxine (SYNTHROID) 88 mcg tablet Take 1 tablet by mouth once daily. Take on empty stomach. aspirin 81 mg cap Take 1 capsule by mouth once daily. No current facility-administered medications for this visit. I have confirmed and edited as necessary, the chief complaint, medications, past medical, family and social histories. Objective BP 155/79 Pulse 58 Resp 20 Ht 5' 10 (1.78m) Wt 178 lb 4.8 oz (80.9kg) BMI 25.58 kg/(m^2). Physical Exam Vitals and nursing note reviewed. Constitutional: General: He is not in acute distress. Appearance: Normal appearance. He is not ill-appearing, toxic-appearing or diaphoretic. HENT: Head: Normocephalic and atraumatic. Right Ear: External ear normal. Left Ear: External ear normal. Ears: Comments: Hard of hearing Mouth/Throat: Mouth: Mucous membranes are moist. Eyes: General: Lids are normal. No scleral icterus. Conjunctiva/sclera: Conjunctivae normal. Pupils: Pupils are equal, round, and reactive to light. Cardiovascular: Rate and Rhythm: Normal rate and regular rhythm. Heart sounds: No murmur heard. No gallop. Pulmonary: Effort: Pulmonary effort is normal. No respiratory distress. Breath sounds: No wheezing, rhonchi or rales. Abdominal: General: Abdomen is flat. Bowel sounds are normal. There is no distension. Palpations: Abdomen is soft. There is no mass. Tenderness: There is no abdominal tenderness. There is no right CVA tenderness, left CVA tenderness or guarding. Hernia: No hernia is present. Musculoskeletal: General: No swelling, tenderness or deformity. Cervical back: Neck supple. No rigidity or tenderness. Skin: General: Skin is warm and dry. Findings: No rash. Neurological: General: No focal deficit present. Mental Status: He is alert and oriented to person, place, and time. Mental status is at baseline. Motor: No weakness. Gait: Gait normal. Psychiatric: Attention and Perception: Attention normal. He does not perceive auditory or visual hallucinations. Mood and Affect: Mood normal. Speech: Speech normal. Behavior: Behavior is cooperative. Thought Content: Thought content is not paranoid. Thought content does not include suicidal ideation. Labs and Imaging: reviewed recent Plan ASSESSMENT/PLAN: 1. Mild dementia with anxiety, 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HCC) - ICD9: 294.21, ICD10: F03.A4 (primary diagnosis) - Weight stabilized, patient and family would like to trail ChlI to slow down disease progression - discussed Risk/side Effect/Benefit/Treatment goal, will start low dose Donepezil - RTC in 3 months for weight check - Will obtain EKG to assess Qtc while taking Donepezil - DONEPEZIL 5 MG TABLET 2. JESSEE (generalized anxiety disorder) - ICD9: 300.02, ICD10: F41.1 - Not tolerating Zoloft, Mood improved without medication, will monitor closely 3. Situational anxiety - ICD9: 300.09, ICD10: F41.8 - Patient to have MRI next week, patient with anxiety associated with imaging, if cannot calm down, can take 0.25mg Alprazolam for MRI - ALPRAZOLAM 0.25 MG TABLET Juju Tim DO Return in about 3 months (around 02/11/2023) for dementia, medication follow up, due EKG. Juju Tim DO Discussed the above with the patient using shared decision making. The patient is in agreement with the diagnostic and treatment plans. This note was partially generated using [employer] voice recognition system, and there may be some incorrect words, spellings, and punctuation that were not noted in checking the note before saving. documented in this encounter [facility] 10-27-2022 Miscellaneous Notes The following approved medication requests have been transmitted electronically. Requested Prescriptions Signed Prescriptions Disp Refills atorvastatin (LIPITOR) 40 mg tablet 90 tablet 3 Sig: Take 1 tablet by mouth once daily. Authorizing Provider: HERMINIO GR Ma OK to refill as ordered Herminio Gr MD Patient phones requesting refills as follows: Requested Prescriptions Pending Prescriptions Disp Refills atorvastatin (LIPITOR) 40 mg tablet 90 tablet 3 Sig: Take 1 tablet by mouth once daily. ULICES-09/02/22 Labs-09/02/22 NOV-01/20/23 Please review and advise. Katie Mcdaniels LPN documented in this encounter [facility] 10-14-2022 Note HNO ID: [id number] Author: Juju Tim, Service: ? Author Type: Physician Type: Progress Notes Filed: 10/14/2022 3:47 PM Note Text: Juju Tim DO [facility] [address] [place] [address] COMPREHENSIVE GERIATRICS ASSESSMENT Patient presents with: Geriatric Evaluation History of Present Illness Mr. John Contreras is a 86 year old year old gentleman referred for Comprehensive Geriatrics Assessment, as referred by PCP for evaluation of memory loss, forgetfulness. He is here with his daughters. John Contreras has PMHX of CAD, DM, CKD, CLL, Hypothyroidism, BPH. No recent hospitalization. Last PCP visit 09/02/2022, for concerns of functional decline and memory loss Memory: per patient, patient is poor historian, with difficulties providing details, stated has lost memory Per daughter, issues with memory since 2019 s/p COVID infection, stated has rapid decline for the past 6 months, symptoms including starts to have trouble bills, poor sleep patterns, admits word finding issues, stated symptoms has been getting worse, admits misplace daily items, patient is still driving, denies accidents, denies lost, stated rapid decline since May, per family, get easily districted and sometimes forget to eat Home: lives alone Social Engagement: limited Hobbies: no longer dancing, limited Mood: denies depression, stated always be a loner Sleep: per family, sleeps in odd pattern, per patient, stated sleeps good Appetite: stated go out and eat with his friend 2-3 times per month, stated normally eats two meals skip the middle one Exercise: nothing currently Family hx: unsure memory issues, siblings had mood disorders Education: some college Work/Job related history: patient has had 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 Yes Is a power of trial attorney in place for financial needs? Yes Is a power of trial attorney in place for health care decisions? Yes Is palliative or hospice care appropriate for the patient? No II) Mentation: [place] Cognitive Exam (MOCA): not on file Cognitive Test evaluation: Cognitive Testing Evaluation Introduction: John Contreras 1935 Male This 86 year old Male was administered a battery of neurocognitive testing on 10/14/2022. Tests Administered: Trails A, Trails B, Digit Symbol Substitution, Stroop, Immediate Recognition, Delayed Recognition The combined test administration time was 22 minutes Test Results: Cognitive testing was provided via a battery of cognitive assessments. The pattern of test scores indicate that results are valid. A Clinical Report with further description of scores and results is also available. Overall: Patient tested in the 1st* percentile (standard score of 48*). Trails A: Patient tested in the 1st percentile (scaled standard score of 15). Trails B: Patient tested in the --* percentile (scaled standard score of null). Digit Symbol Substitution: Patient tested in the 1st percentile (scaled standard score of 60). Stroop: Patient tested in the 1st percentile (scaled standard score of 33). Immediate Recognition: Patient tested in the 6th percentile (scaled standard score of 76). Delayed Recognition: Patient tested in the 91st percentile (scaled standard score of 120). * These assessments were not scored because they were potentially invalid, or the patient failed to complete in the allotted time. Interpretation of Test Scores: Examination of individual component tests shows: Attention - Trails A: likely impairment Mental Flexibility - Trails B: possible impairment Executive Function - Digit Symbol Substitution: likely impairment Executive Function - Stroop: likely impairment Memory - Immediate Recognition: possible impairment Memory - Delayed Recognition: unlikely impairment The patient?s overall cognitive test performance was in the 1st percentile when compared to individuals of a similar age and gender, suggesting likely presence of cognitive impairment. FAST (Functional Assessment Staging Tool) 4. Decreased ability to perform complex tasks (e.e.g planning dinner for guests; handling finances; marketing) CDR Dementia Scale 1) Subjective Memory Loss: YES 2) Measurable Memory Loss: NO 3) IADLs: YES 4) BADLs: NO Driving Safely: Yes > 50% 6) Medications: No Mood Evaluation and Screening GDS: Geriatric Depression Scale 10/14/2022 Are you basically satisfied with your life? 1 Have you dropped many of your activities and interests? 0 Do you feel that your life is empty? 0 Do you often get bored? 0 Are you in good spirits most of the ti (more content not included)... [facility] 10-14-2022 Instructions Juju TimDO - 10/14/2022 2:49 PM EDT Images from the original note were not included. Tips to help with your memory and cognition 1. COGNITIVE STIMULATION Keep your brain active by doing mentally stimulating activities for 30 minutes twice a day. Here are few suggested activities: - crossword puzzles - jigsaw puzzles - [employer] games - word finding - problem solving activities - learn a new hobby or take a class 2. SOCIAL INTERACTION Talk to a friend, family member or neighbor at least once a day. Engage in community activities. Consider joining your local [employer] center. 3. PHYSICAL ACTIVITY Make sure you move your body every day. You may vary your exercises to help keep your brain sharp. Always check with your health care provider before starting a new exercise program. Try to walk at least 30 minutes 5 times per week. You may also consider trying Andrea Chi or Yoga to help with balance and strength training 4. DIET/NUTRITION Follow a Mediterranean diet, including fruits, vegetables, lean meats, fish. Drink atleast six (8 ounce) cups of water daily to avoid dehydration Reduce your intake of fat and cholesterol rich food. Avoid alcohol The MIND diet (Mediterranean-DASH Intervention for Neurodegenerative Delay) has been associated with a reduced incidence of cognitive impairment and Alzheimer disease Types of Dementia What is dementia? When loss of mental functions--such as thinking, memory, and reasoning--are severe enough to interfere with a person's independent daily functioning, they are said to be at the stage of dementia. Dementia is not a disease itself, but rather the total impact of symptoms that might accompany certain diseases or conditions on daily function. Symptoms also might include changes in personality, mood, and behavior. Dementia develops when the parts of the brain that are involved with learning, memory, decision-making, and language are affected by any of various infections or diseases. The most common cause of dementia is Alzheimer's disease, but there are numerous other known causes. Most of these causes are very rare. Dementia is irreversible when caused by degenerative disease or trauma, but might be reversible in some cases when caused by drugs, alcohol, hormone or vitamin imbalances, or depression. Therefore, it is very important to evaluate dementia symptoms comprehensively, so as not to miss potentially treatable conditions. The frequency of treatable causes of dementia is believed to be about 20 percent. What are some of the other causes of dementia? There are many causes of dementia, including neurological disorders such as Alzheimer's disease, blood flow-related (vascular) disorders such as multi-infarct cognitive impairment, inherited disorders such as [place]'s disease, and infections such as HIV. The most common causes of dementia include: Degenerative neurological diseases, such as Alzheimer's, frontotemporal lobar degeneration, dementia with Lewy bodies, Parkinson's, and [place]'s diseases Vascular disorders, such as multi-infarct dementia, which is caused by multiple strokes in the brain Infections that affect the central nervous system, such as HIV dementia complex and Creutzfeldt-Niko disease Chronic drug use Depression Certain types of hydrocephalus, an accumulation of fluid within the brain that can result from developmental abnormalities, infections, injury, or brain tumors Alzheimer's disease accounts for 50 percent to 70 percent of all dementia. However, many patients with Alzheimer's disease also have evidence of co-existing cerebrovascular disease, usually consisting of multiple small areas of ischemic changes (often called mini-strokes ) on MRI and on post-mortem examination of the brain. Thus, many of these patients can be considered to have a mixed dementia. Frontotemporal lobar degenerations, of which several types are known, account for a substantial number of dementias, especially among those in their 50s and 60s. Dementia with Lewy bodies has also been diagnosed with increasing frequency in recent years. These patients have clinical signs of parkinsonism as well as dementia; its relationship to the dementia of Parkinson's disease is still incompletely understood. How common is dementia? Although dementia has always been common, it has become even more common among the elderly in recent history. It is not clear if this increased frequency of dementia reflects a greater awareness of the symptoms or if people simply are living longer and thus are more likely to develop dementia in their older age. Dementia caused by neurological degenerative disease, especially Alzheimer's disease, is increasing in frequency more than most other types of dementia. Some researchers suspect that as many as half of all people over 85 years old develop Alzheimer's disease. Dementia associated with AIDS, which appeared to be increasing in frequency in the is now much less commonly seen, since the development of highly effect anti-retroviral therapy. Who gets dementia? Dementia is considered a late-life disease because it tends to develop mostly in elderly people. About 5 percent to 8 percent of all people over the age of 65 have some form of dementia, and this number doubles every five years above that age. It is estimated that as many as half of people 85 or older suffer from dementia. What are the types of dementia? It is convenient to classify most dementias as either of Alzheimer type or non-Alzheimer type. The former are characterized predominantly by memory loss, accompanied by impairment in other cognitive functions or domain, such as language function (aphasia), skilled motor functions (apraxia), or perception, visual or other (agnosias). Non-Alzheimer dementias include the frontotemporal lobar degenerations, which generally are of two main types. One primarily affects speech, as in the primary progressive aphasia syndromes. The other is characterized primarily by changes in behavior, including apathy, disinhibition, personality change and what is called executive function (e.g., planning ahead and organizational ability). In both of these types, memory loss is relatively mild, if present, until later in the course of the disease. Other forms of dementia, including vascular disorders (multiple strokes), dementia with Lewy bodies, Parkinson's dementia, and normal pressure hydrocephalus would be grouped among the non-Alzheimer disorders. Is dementia treatable? One should differentiate the terms treatable and reversible or curable. All or almost all forms of dementia are treatable, in that medication and supportive measures are available to help with management of the demented patient. However, most types of dementia remain incurable or irreversible and only modest benefits from treatment are realized. Some disorders which may be successfully treated with return to a normal or pre-morbid state might include: Impairment from toxic side effects of medications or drugs Tumors that can be removed Subdural hematoma, an accumulation of blood beneath the outer covering of the brain that results from a broken blood vessel, usually as a result of a head injury (which can be minor and even unrecognized) Normal pressure hydrocephalus Metabolic disorders, such as a vitamin B12 deficiency Hypothyroidism, a condition that results from low levels of thyroid secretion Hypoglycemia, a condition that results from low blood sugar, assuming absence of extensive cell injury Dementias that are largely irreversible, but may still be at least partially responsive to medications currently available for memory loss or modification of behavior include: Alzheimer's disease Multi-infarct (vascular) dementia Dementias associated with Parkinson's disease and similar disorders AIDS dementia complex Creutzfeldt-Niko disease (CJD), a quickly progressing and fatal disease that is characterized by dementia and myoclonus -- muscle twitching and spasm What medications are available? Memory-enhancing drugs, including the cholinesterase inhibitors (e.g., donepezil, rivastigmine, and galantamine) along with memantine, a medication that acts on another neurotransmitter system have all been shown to have some benefit in improving memory function in some patients. None of these drugs appear to stop the progression of the underlying disease however. References National Alford of Neurological Disorders & Stroke. NINDS Dementia Information Page Accessed 11/25/2013. Family Caregiver [place]. [facility] on Caregiving. Is this Dementia and What Does it Mean? Accessed 11/25/2013. National Alford on Aging. Forgetfulness: Knowing When to Ask for Help Accessed 11/25/2013. Copyright 2239-4298 [facility]. All rights reserved This information is provided by the [facility] and is not intended to replace the medical advice of your doctor or health care provider. Please consult your health care provider for advice about a specific medical condition. For additional health information, please contact the Center for Consumer Health Information at the [facility] or toll-free extension [phone]. If you prefer, you may visit [email or web address] or [email or web address]. This document was last reviewed on: 2013 index#0670 Stages and Treatment of Alzheimer's Disease Alzheimer's disease (AD) is a type of progressive deterioration of the structure and function of the brain. In the prodromal stage, a person may function appropriately in his or her home and work environment, and abnormalities in cognition may be apparent only on detailed neuropsychologic testing. Eventually, cognitive deficits are noticeable. A person with Alzheimer's disease early on has difficulty with: short-term memory making lists keeping track of complicated appointments or social schedules organizing a vacation trip following directions using a map coordinating a multi-course holiday family dinner. Later in the disease, there are often problems with long-term memory, mood, apathy, agitation, and abnormal motor activity (e.g., pacing). Affected people have trouble using appliances--first, complex ones, such as the car or professor of mechanical engineering; later, the telephone; and lastly even table utensils. Not every memory problem becomes dementia, and not every cause of dementia is AD. Dementia means that there is a loss of memory and at least one other aspect of cognition, such as abstract thinking, personality, or executive (organizational) ability, and that the loss interferes with function. Dementia cannot be diagnosed when a person becomes suddenly ill, such as with a fever, infection, metabolic derangement, etc. Alzheimer's disease is the most common cause of dementia. However, stroke, alcohol, Parkinson's disease, and other medical conditions can cause dementia as well. Alzheimer's disease has both a genetic and an environmental component. The genetic component is very strong in those diagnosed with AD in their 40s or early 50s. However, these represent a small fraction of the AD population. Most people with Alzheimer's disease develop symptoms in their 70s and 80s, and the genetic component is much weaker at this age. Only 50% of identical twins of older Alzheimer's patients are diagnosed with Alzheimer's disease. Health and environmental factors, such as mental and physical activity, and treatment of medical conditions such as hypertension and diabetes play a strong role in postponing AD symptoms. Genetic testing for Alzheimer's disease occurring after age 60 is not generally recommended. Stages of Alzheimer's disease Prodomal: This stage is usually not diagnosed because people in this stage are functioning at a high level. Occasionally, they may report having more problems than usual with short-term memory, or remembering names or where they placed their belongings. However, they balance their checkbook, keep appointments, and continue to drive. People compensate by giving themselves more time to adapt and perhaps by writing reminder notes. Some people may become anxious about their memory deficits. There is no specific treatment except for lifestyle. Mild: In this stage, cognitive deficits are noticeable in demanding situations. The stewart to diagnosing mild dementia is that function at home or work is impaired, although slightly. Affected people begin to need help with complicated tasks such as planning a alliance party or handling finances. They may have problems remembering life events (hospitalizations, medical conditions, educational/job milestones), have trouble concentrating, and may have trouble traveling, particularly to unfamiliar places. Most people in the mild stage have no problem with familiar faces, are not disoriented with respect to time, and can usually travel to familiar places. However, people with Alzheimer's tend to back away from dealing with difficult or challenging situations. Their mood may be a bit flat. Most are not aware of the extent of their deficits. They may say they have the same memory problems everyone else their age has, but they really do not understand the extent of their loss. Many persons with mild Alzheimer's disease may still be driving. They should be encouraged not to drive. If they insist, they should be evaluated by a cdl flatbed truck driver occupational rehabilitation aide to assess their driving risks. They might get therapy to improve their driving ability and lower their risks. Medicare covers an Occupational Therapy evaluation for certain diagnoses, such as stroke or lack of coordination. If Medicare does not cover it for you in your region of the country, consider an evaluation by a private driving school from an instructor who is certified in cdl flatbed truck driver rehabilitation. Moderate: People in the moderate stage of Alzheimer's require assistance. They need help choosing proper attire and may need help putting clothes on in the right order. Kitchen safety (e.g., fire from an unattended pot on the stove) may be an issue, and appliances such as the stove may need to be disabled. If still driving, they should be persuaded to retire from driving. They also may not be able to manage their medications or finances safely. While there is some disorientation with time, such as remembering that the Cold War followed World War II, people with moderate dementia can still remember major information about themselves, their families, and others. There may be delusional behavior, depression, apathy, or anxiety as the disease progresses. Moderately severe: As memory loss progresses, a person may not consistently recognize his or her children or spouse, or may confuse them with other family members. Functionally, the person loses skills in dressing, bathing, and then toileting. Urinary incontinence and, later, fecal incontinence occur. Sleep is often disturbed. Severe: The person's speech ability becomes limited to about half dozen words, and eventually, intelligible vocabulary decreases to a single word. He or she has lost or will lose the ability to walk, sit up, smile, and eventually hold up his or her head. The brain now appears unable to tell the body what to do. The person may sit on the toilet, having forgotten how to move his or her bowels, or may be incontinent prior to reaching the toilet. A person with severe dementia will hold food in his or her mouth, having forgotten how to swallow. Weight loss, aspiration, and bedsores may occur as the disease progresses. Hospice care may be appropriate at this time for comfort and palliation. Treatment of Alzheimer's disease Lifestyle: These recommendations are appropriate at all stages of disease, but need to be tailored to the individual's preferences and abilities. In general, healthy lifestyle changes that protect the body from strokes and heart attacks tend to protect the brain from cognitive decline. Older adults who exercise, maintain their normal body weight, avoid head trauma, have no more than one standard alcoholic beverage daily, and stay socially engaged maintain their cognitive abilities best. Adults in early stages could attend courses at a local community college, take classes at a senior center, and/or participate in library book clubs. Those with moderate or severe disease may benefit from organized activities in an adult daycare setting. The Office of Aging and the Alzheimer's Association in your community can provide information on local sites. Also, treatment of hypertension is important in protecting the brain against cognitive decline, as is prevention and treatment of diabetes with exercise and medications. Cholinesterase inhibitors: These medications are approved by the FDA to treat the symptoms of mild to moderate Alzheimer's disease (AD). Cholinesterase inhibitors include: Donepezil (Aricept ) (FDA-approved for all stages of AD) Rivastigmine (Exelon ) and Exelon patch Galantamine (Razadyne ) Cholinesterase inhibitors block the action of acetylcholinesterase, the enzyme responsible for the destruction of acetylcholine. Acetylcholine is one of several neurotransmitters in the brain (chemicals that nerve cells use to communicate with one another). Reduced levels of acetylcholine in the brain are believed to be responsible for some of the symptoms of Alzheimer's disease. By blocking the enzyme that destroys acetylcholine, these medications increase the concentration of acetylcholine in the brain. This increase is believed to be responsible for the improvement in memory and cognition seen with these medications. The improvement is modest. Researchers think that people on a cholinesterase inhibitor may still experience benefits in function and behavior when maintained on these medications for a prolonged period of time. These benefits may help reduce caregiver burden, delay mcc placement, and improve neuropsychiatric problems (such as apathy and agitation). Memantine (Namenda ): Memantine is approved by the FDA for treatment of moderate to severe Alzheimer's disease. It blocks the neurotransmitter glutamate from activating NMDA receptors on nerve cells, keeping the cells healthier. This mechanism is different than that of the cholinesterase inhibitors. Patients with moderate to severe Alzheimer's who were treated with memantine performed better on scales measuring the common activities of daily living such as eating, walking, toileting, bathing, and dressing compared with patients taking placebo. Patient with lower functioning may benefit the most. Memantine appears to be safe and effective alone or when used together with a cholinesterase inhibitor. It may also help with neuropsychiatric symptoms. However, like with the cholinesterase inhibitors, the effect on cognition and abilities is modest and declines after about six months. Research is ongoing to determine long-term benefits. Miscellaneous: The evidence supporting a benefit for the herbal product gingko biloba is weak. Persons with Vitamin D deficiency may have more cognitive deficits than persons with normal levels of Vitamin D. There is no evidence that treating Vitamin D improves cognition. However, treating Vitamin D deficiency has other benefits, such as reducing the risks of falls and hip fractures. Older adults should take 1,000 units of Vitamin D (cholecalciferol) daily. Vitamin E in high doses for older adults with moderate AD may delay mcc entry but is associated with an increased risk of in epidemiological studies. Selegiline may have a benefit equivalent to Vitamin E but has more side effects. Estrogen does not improve cognition when administered to a woman with Alzheimer's disease; it may increase the risk of dementia in healthy women. Studies of nonsteroidal anti-inflammatory medications such as Naprosyn and Celebrex in persons with cognitive impairment demonstrate no benefit in preventing AD, and may cause kidney and stomach problems in older adults. Interventional studies with cholesterol-lowering medications, psychotropic stimulants, certain diabetes medications, antioxidants, and folic acid supplements are ongoing but at this time are not proven to have benefit. References National Alford on Aging. Alzheimer's Disease Education & Referral Center. www.lucy.nih.gov Accessed 10/15/2010 Alzheimer's Association. Alzheimer's Disease: Stages of Alzheimer's Disease. www.alz.org Accessed 10/15/2010 DEVAUGHN Pisano. Alzheimer's Disease. New Century Journal of Medicine 2003; Isauro 1;351(1):56-67 Copyright 3323-4941 [facility]. All rights reserved This information is provided by the [facility] and is not intended to replace the medical advice of your doctor or health care provider. Please consult your health care provider for advice about a specific medical condition. For additional health information, please contact the Center for Consumer Health Information at the [facility] or toll-free extension [phone]. If you prefer, you may visit [email or web address] or [email or web address]. This document was last reviewed on: 2010 index#39316 documented in this encounter [facility] 10-14-2022 History of Presen t illness Narrative Images from the original note were not included. Juju Tim DO [facility] [place] [address] COMPREHENSIVE GERIATRICS ASSESSMENT Patient presents with: Geriatric Evaluation History of Present Illness Mr. John Contreras is a 86 year old year old gentleman referred for Comprehensive Geriatrics Assessment, as referred by PCP for evaluation of memory loss, forgetfulness. He is here with his daughters. John Contreras has PMHX of CAD, DM, CKD, CLL, Hypothyroidism, BPH. No recent hospitalization. Last PCP visit 09/02/2022, for concerns of functional decline and memory loss Memory: per patient, patient is poor historian, with difficulties providing details, stated has lost memory Per daughter, issues with memory since 2019 s/p COVID infection, stated has rapid decline for the past 6 months, symptoms including starts to have trouble bills, poor sleep patterns, admits word finding issues, stated symptoms has been getting worse, admits misplace daily items, patient is still driving, denies accidents, denies lost, stated rapid decline since May, per family, get easily districted and sometimes forget to eat Home: lives alone Social Engagement: limited Hobbies: no longer dancing, limited Mood: denies depression, stated always be a loner Sleep: per family, sleeps in odd pattern, per patient, stated sleeps good Appetite: stated go out and eat with his friend 2-3 times per month, stated normally eats two meals skip the middle one Exercise: nothing currently Family hx: unsure memory issues, siblings had mood disorders Education: some college Work/Job related history: patient has had 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 Yes Is a power of trial attorney in place for financial needs? Yes Is a power of trial attorney in place for health care decisions? Yes Is palliative or hospice care appropriate for the patient? No II) Mentation: [place] Cognitive Exam (MOCA): not on file Cognitive Test evaluation: Cognitive Testing Evaluation Introduction: John Contreras 1935 Male This 86 year old Male was administered a battery of neurocognitive testing on 10/14/2022. Tests Administered: Trails A, Trails B, Digit Symbol Substitution, Stroop, Immediate Recognition, Delayed Recognition The combined test administration time was 22 minutes Test Results: Cognitive testing was provided via a battery of cognitive assessments. The pattern of test scores indicate that results are valid. A Clinical Report with further description of scores and results is also available. Overall: Patient tested in the 1st* percentile (standard score of 48*). Trails A: Patient tested in the 1st percentile (scaled standard score of 15). Trails B: Patient tested in the --* percentile (scaled standard score of null). Digit Symbol Substitution: Patient tested in the 1st percentile (scaled standard score of 60). Stroop: Patient tested in the 1st percentile (scaled standard score of 33). Immediate Recognition: Patient tested in the 6th percentile (scaled standard score of 76). Delayed Recognition: Patient tested in the 91st percentile (scaled standard score of 120). * These assessments were not scored because they were potentially invalid, or the patient failed to complete in the allotted time. Interpretation of Test Scores: Examination of individual component tests shows: Attention - Trails A: likely impairment Mental Flexibility - Trails B: possible impairment Executive Function - Digit Symbol Substitution: likely impairment Executive Function - Stroop: likely impairment Memory - Immediate Recognition: possible impairment Memory - Delayed Recognition: unlikely impairment The patient s overall cognitive test performance was in the 1st percentile when compared to individuals of a similar age and gender, suggesting likely presence of cognitive impairment. FAST (Functional Assessment Staging Tool) 4. Decreased ability to perform complex tasks (e.e.g planning dinner for guests; handling finances; marketing) CDR Dementia Scale 1) Subjective Memory Loss: YES 2) Measurable Memory Loss: NO 3) IADLs: YES 4) BADLs: NO Driving Safely: Yes > 50% 6) Medications: No Mood Evaluation and Screening GDS: Geriatric Depression Scale 10/14/2022 Are you basically satisfied with your life? 1 Have you dropped many of your activities and interests? 0 Do you feel that your life is empty? 0 Do you often get bored? 0 Are you in good spirits most of the time? 1 Are you afraid that something bad is going to happen to you? 0 Do you feel happy most of the time? 1 Do you often feel helpless? 1 Do you prefer staying at home to going out and doing new things? 0 Do you feel you have more problems with memory than most people? 1 Do you think it is wonderful to be alive now? 0 Do you feel pretty worthless the way you are now? 0 Do you feel full of energy? 1 Do you feel that your situation is hopeless? 0 Do you think that most people are better off than you are? 0 GDS Total Score 6 GDS Score Assessment 5 points or above suggests depression Normal Mild Moderate Severe 0-4 5-8 9-11 12+ JESSEE-7: JESSEE - 7 SCORES 10/14/2022 JESSEE-7 Score 15 (0-4) minimal anxiety, (5-9) mild anxiety, (10-14) moderate anxiety, (15-21) severe anxiety III) Mobility: Functional Evaluation: B-ADLs: (I=independent,A=assistance,D=de pendent) ?Bathing: I, Dressing: I, patient wears long sleeves, Jeans, with Temp 100F, Toileting: I, Transferring:I, Continence: I, Feeding: I, (Patten Index): 6 I-ADLs: Ability to use phone: A, issues with land line, Shopping: I, Cooking: self report I, Housekeeping: I, Laundry: I, Transportation:I, Medications: A, Handle Finances: D, A. (Vicki scale): 5 Mobility Aid: None Falls: .: Falls in the last 12 months: at least twice per family, stated mechanical If + falls: Safety Assessment Checklist If the patient or caregiver answers yes to questions 1 and 3-7 or no to question 2, refer to the Safety Assessment Guide for further evaluation. When working with patients living with dementia, it is recommended that you also consult with a family member, friend or caregiver, as the patient s judgment, memory and decreased cognitive skills may impact insight into the illness and the ability to provide accurate reporting. Questions (Yes/ No) 1. Is the patient still driving? YES 2. Is the patient taking medications as prescribed? YES 3. Are there concerns about safety in the home? NO, 4. Has the patient gotten lost in familiar places or wandered? NO 5. Are firearms present in the home? NO 6. Has the patient experienced unsteadiness or sustained falls? YES 7. Does the patient live alone? YES Frailty Screening (F.R.A.I.L Scale-Fried): Fatigue: NO Resistance (ability to climb a flight of stairs): YES Aerobics (ability to walk a block): YES Illnesses (presence of > 5% illnesses): NO Loss of Weight (presence of > 5% in the past 6 months): YES Patient is Prefrail (Robust: 0, Pre-frail: 1-2, Frail: >=3) IV) Medication Review: - ANY HIGH RISK MEDICATIONS (STOPP CRITERIA): NO - Oxybutynin has high anti-cholinergic burden, cautions to use in patient with cognitive impairment Mini - Nutritional Assessment Screening Has food intake declined over the past 3 months due to loss of appetite, digestive problems, chewing or swallowing difficulties? 1 = moderate decrease in food intake 2. Weight loss during the last 3 months 0 = weight loss greater than 3 kg (6.6 lbs) 3. Mobility 2 = goes out 4. Has suffered psychological stress or acute disease in the past 3 months? 2 = no 5.Neuropsychological problems 1 = mild dementia 6. Body Mass Index (BMI) (weight in kg) / (height in m2) 3 = BMI 23 or greater Screening score: 9 (max. 14 points) 12-14 points: Normal nutritional status 8-11 points: At risk of malnutrition 0-7 points: Malnourished Geriatrics Review of Systems Incontinence - During the last 3 months did you leak urine? NO Constipation: NO Orthostatic Hypotension: NO Nutrition - Loss of weight (> 5% in the past 6 months): YES Vision Positive for vision impairment and wears glasses Follows with medical affairs specialist:NO Hearing - Hearing aid : Hearing impairment, no hearing aids Review of Systems Constitutional: Negative for activity change, appetite change, chills, fatigue, fever and unexpected weight change. HENT: Negative for facial swelling, hearing loss, sinus pressure, sinus pain, sore throat, tinnitus, trouble swallowing and voice change. Eyes: Negative for pain, discharge, itching and visual disturbance. Respiratory: Negative for cough, chest tightness, shortness of breath, wheezing and stridor. Cardiovascular: Negative for chest pain, palpitations and leg swelling. Gastrointestinal: Negative for abdominal pain, anal bleeding, blood in stool, constipation, diarrhea, nausea and vomiting. Endocrine: Negative for polyuria. Genitourinary: Negative for difficulty urinating, dysuria, flank pain, frequency, hematuria and urgency. Musculoskeletal: Negative for back pain, gait problem and joint swelling. Skin: Negative for color change and rash. Neurological: Negative for dizziness, tremors, syncope, speech difficulty, weakness, light-headedness, numbness and headaches. Psychiatric/Behavioral: Negative for agitation, behavioral problems, confusion, decreased concentration, hallucinations, self-injury, sleep disturbance and suicidal ideas. The patient is not nervous/anxious. ALLERGIES Allergen Reactions Baby Aspirin [Aspir* Other: See Comments Hematuria. Lisinopril Intolerance Frequent dry cough Penicillin G Hives Trees Other: See Comments Positive skin test 05-29-13. PAST MEDICAL HISTORY Diagnosis Date Enlarged lymph nodes in armpit 02/11/13 Lymphoma (HCC) 11/2012 NEGATIVE MEDICAL HISTORY PAST SURGICAL HISTORY Procedure Laterality Date APPENDECTOMY BX/EXC LYMPH NODE OPEN DEEP AXILLARY NODE 02/11/13 PAST SURGICAL HISTORY OF tonsils and adenoids removed PAST SURGICAL HISTORY OF 02/22/2016 Stent placement, 2. [facility] - Dr. King Social History Tobacco Use Smoking status: Former Packs/day: 1.00 Types: Cigarettes Quit date: 03/20/1983 Years since quittin.5 Smokeless tobacco: Never Tobacco comments: Pt smoked on & off for 20 years. Vaping Use Vaping Use: Never used Substance Use Topics Alcohol use: Yes Comment: very seldom Drug use: No FAMILY HISTORY Problem Relation Age of Onset Diabetes Mother Current Outpatient Medications Medication Sig dutasteride (AVODART) 0.5 mg capsule Take 1 capsule by mouth once daily. oxybutynin ER (DITROPAN XL) 10 mg 24 hr tablet Take 1 tablet by mouth once daily. losartan (COZAAR) 25 mg tablet Take 1 tablet by mouth once daily. levothyroxine (SYNTHROID) 88 mcg tablet Take 1 tablet by mouth once daily. Take on empty stomach. atorvastatin (LIPITOR) 40 mg tablet Take 1 tablet by mouth once daily. carvedilol (COREG) 3.125 mg tablet Take 1 tablet by mouth twice daily with meals. aspirin 81 mg cap Take 1 capsule by mouth once daily. sertraline (ZOLOFT) 25 mg tablet Take 1 tablet by mouth once daily. No current facility-administered medications for this visit. I have confirmed and edited as necessary, the chief complaint, medications, past medical, family and social histories. BP 115/61 (BP Site: Right Arm, BP Position: Sitting, BP Cuff Size: Large Adult) Pulse 63 Resp 20 Ht 177.8 cm (5' 10 ) Wt 79.3 kg (174 lb 14.4 oz) BMI 25.10 kg/m Physical Exam Vitals and nursing note reviewed. Constitutional: General: He is not in acute distress. Appearance: Normal appearance. He is not ill-appearing, toxic-appearing or diaphoretic. HENT: Head: Normocephalic and atraumatic. Right Ear: External ear normal. Left Ear: External ear normal. Mouth/Throat: Mouth: Mucous membranes are moist. Eyes: General: Lids are normal. No scleral icterus. Conjunctiva/sclera: Conjunctivae normal. Pupils: Pupils are equal, round, and reactive to light. Cardiovascular: Rate and Rhythm: Normal rate and regular rhythm. Heart sounds: No murmur heard. No gallop. Pulmonary: Effort: Pulmonary effort is normal. No respiratory distress. Breath sounds: No wheezing, rhonchi or rales. Abdominal: General: Abdomen is flat. Bowel sounds are normal. There is no distension. Palpations: Abdomen is soft. There is no mass. Tenderness: There is no abdominal tenderness. There is no right CVA tenderness, left CVA tenderness or guarding. Hernia: No hernia is present. Musculoskeletal: General: No swelling, tenderness or deformity. Cervical back: Neck supple. No rigidity or tenderness. Skin: General: Skin is warm and dry. Findings: No rash. Neurological: General: No focal deficit present. Mental Status: He is alert and oriented to person, place, and time. Mental status is at baseline. Motor: No weakness. Gait: Gait normal. Comments: A&O to self, location, year, month Psychiatric: Attention and Perception: Attention normal. He does not perceive auditory or visual hallucinations. Mood and Affect: Mood normal. Speech: Speech normal. Behavior: Behavior is cooperative. Thought Content: Thought content is not paranoid. Thought content does not include suicidal ideation. ? Diagnostics: Glucose (mg/dL) Date Value 09/02/2022 122 02/03/2021 131 Potassium (mmol/L) Date Value 09/02/2022 4.6 02/03/2021 4.5 Sodium (mmol/L) Date Value 09/02/2022 142 02/03/2021 141 Chloride (mmol/L) Date Value 09/02/2022 106 02/03/2021 104 CO2 (mmol/L) Date Value 09/02/2022 25 02/03/2021 28 Creatinine (mg/dL) Date Value 09/02/2022 1.29 02/03/2021 1.20 BUN (mg/dL) Date Value 09/02/2022 24 02/03/2021 18 Anion Gap (mmol/L) Date Value 09/02/2022 11 02/03/2021 9 Calcium (mg/dL) Date Value 02/03/2021 9.2 Calcium, Total (mg/dL) Date Value 09/02/2022 8.7 Protein, Total (g/dL) Date Value 09/02/2022 6.7 02/03/2021 6.9 Albumin (g/dL) Date Value 09/02/2022 4.0 02/03/2021 4.3 Bilirubin, Total (mg/dL) Date Value 09/02/2022 0.6 02/03/2021 0.8 Alkaline Phosphatase (U/L) Date Value 09/02/2022 90 02/03/2021 86 AST (U/L) Date Value 09/02/2022 26 02/03/2021 31 ALT (U/L) Date Value 09/02/2022 10 02/03/2021 20 CBC: Hemoglobin (g/dL) Date Value 09/02/2022 11.3 02/03/2021 12.6 Hematocrit (%) Date Value 09/02/2022 35.5 02/03/2021 38.0 WBC (k/uL) Date Value 09/02/2022 4.28 02/03/2021 4.83 Platelet Count (k/uL) Date Value 09/02/2022 148 02/03/2021 77 TSH Date Value 09/02/2022 3.010 mIU/L 02/03/2021 3.680 uU/mL Vitamin B12 (pg/mL) Date Value 09/02/[address]/MRI head - no brain imaging on file Assessment and Plan Mr. John Contreras is a 86 year old year old gentleman referred for Comprehensive Geriatrics Assessment, as referred by PCP for evaluation of memory loss. ? Mood and Mentation: - Cognitive testing today showed impairments in attention, mental flexibility, executive function, memory preserved, overall cognitive test performance was in the 1st percentile when compared to individuals of a similar age and gender, suggesting presence of cognitive impairment - GDS 09/01 suggesting mild depression - JESSEE-[id number] suggesting severe anxiety - Given testing results, history, most suspicious for mild dementia, highly concerns for vascular dementia given rapid decline, however, cannot rule out uncontrolled anxiety as confounding factor - Discussed in length with patient and family regarding results today, given cognitive impairment and impairments in iADLS, patient dose have dementia, dementia is progressive disease, currently no curative treatment, also cannot rule out the effects of anxiety on cognitive performance, patient with weight loss, hesitate to start ChlI to slow down dementia progression in the setting of uncontrolled anxiety, will repeat cognitive testing in 6 months, if shows decline, may consider start ChlI - will start Zoloft for depression/anxiety - Recommended patient to have more supervision, ensure three meals per day - serologies for potentially reversible etiologies for memory impairment: Vitamin B12 elevated on 09/02/2022, TFTs WNL - ordered MRI brain with volumetric scans - Current BPSD (Behavioral manifestations of Dementia): anxiety - Medication management system: family is supervising - Driving Evaluation: patient should stop driving given cognitive impairment, at high risk for driving accidents - Finances Management: recommended family to have more supervision - Risk for elder abuse/exploitation: some risk given cognitive impairment - Suggested [place] lifestyle principles: I) Routine exercise: 150 minuets per week II) Mediterranean/MIND diet III) Increased socialization IV) Sense of purpose/ [place] V) Cognition stimulation: Reading, crossword puzzles, word jumbles, [place], Lumosity Mobility: - Patient is Independent, with Fair functional baseline. No indications to intervene at present Medications: - Patient on Oxybutynin, which has nigh anti-cholinergic burden, will negatively affect cognition, recommended to consider discontinuation High Risk Geriatric Medications identified - Beer's / STOPP Criteria: NO Juju Tim DO Return in about 4 weeks (around 11/11/2022) for depression, mae. Thank you very much for the opportunity to participate in the care of your patient. Total time in direct patient contact = 85 min. Greater than 50% of the time was spent in counseling and/or coordination of care. Additional time outside encounter was spent totaling 20 min for chart, results review and interpretation, family/caregiver corroboration of history and screening tools as well as coordination of care and community resources. JUJU TIM DO GERIATRIC MEDICINE [facility] Discussed the above with the patient using shared decision making. The patient is in agreement with the diagnostic and treatment plans. This note was partially generated using [employer] voice recognition system, and there may be some incorrect words, spellings, and punctuation that were not noted in checking the note before saving. documented in this encounter [facility] 09-07-2022 Miscellaneous Notes Daughter calls and phone number given to schedule consult to geriatrics. Marion Selby RN Please give daughter Jossie this number to schedule an appointment for patient for consult to geriatrics when she returns call: [phone]. Marion Selby RN Daughter (Jossie) requests you call her to schedule the consult to geriatric appointment at [phone]. Thanks, Marion Selby RN documented in this encounter [facility] 09-07-2022 Miscellaneous Notes Pt's daughter called in regarding lab results. Given Dr. Gr's response. She verbalizes understanding. Mili Dorantes RN Phone call placed brief message to contact a nurse to review results. Aisha Bell LPN The protein in his urine is probably due to his mild chronic kidney disease; does not indicate an infection. The B12 level would be high if he is getting extra B12, perhaps in a mutli vitamin? A slightly high B12 level is not of concern,would not cause any problems. Herminio Gr MD Daughter (Jossie) calls after reviewing labs in . Jossie noted protein in urine to be elevated to 1+ and Vitamin B-12 to be elevated at 1,496. Patient is not taking a Vitamin B-12 supplement. Jossie asking what provider thinks is the cause of the two elevations and asking for call back at [phone]. Marion Selby RN Please notify patient/family that his lab results look OK/stable. I would suggest getting a Geriatrics consult for further evaluation of his memory issues. Herminio Gr MD documented in this encounter [facility] 09-02-2022 Note HNO ID: [id number] Author: Herminio Gr MD Service: ? Author Type: Physician Type: Progress Notes Filed: 09/02/2022 4:19 PM Note Text: Chief Complaint Patient presents with: Memory Problems HPI John Contreras is a 86 year old male who presents here today for memory issues. Pt here today with both of his daughters, Jossei and Jennifer. Pt here to discuss a decline in his memory. Pt not due for follow up until January. Recently just seen in office on 07/22/22; they have noticed a decline in his functioning since then. Pt not taking any thing currently for memory. Pt has not seen any Geriatric Specialists or Brain Health Specialists. Pt at this time states he is having difficulty remembering things or recalling things. He's lost 13 lbs since his last OV. Forgetting to eat meals. Daughter Jennifer states that when she goes to check on him at lunch time she checks his medications. He forgets to take his pills, despite her being on the phone with him and her telling him take his pills. At times he does take his pills, but not regularly. Daughter Jossie states that he's napping more and eating less. They do go out to dinner once a week. Unsure what his sleep cycle is but they feel it's not regular. He does have a dog that he has to care for and take out which he does, but then goes back to bed. She feels he has difficulty swallowing pills. She doesn't feel he has trouble swallowing food. Uses [email or web address] william to watch where he goes when driving. Pt states that generally if he forgets, he just has to think about it and is able to recall where he needs to go. Having difficulty getting up out of his chair, like he's weaker. When he loses something he breaks down almost crying but then stops himself, more emotional. Asking if labs could be done or if he could possibly have a possible UTI. [employer] Nurse came out and did a Wellness visit and performed a Mini-Cog test, that patient did not do real well on. Past medical history, appointments, medications, allergies reviewed. Previous Medical History PAST MEDICAL HISTORY Diagnosis Date Enlarged lymph nodes in armpit 02/11/13 Lymphoma (HCC) 11/2012 NEGATIVE MEDICAL HISTORY Previous Surgical History PAST SURGICAL HISTORY Procedure Laterality Date APPENDECTOMY BX/EXC LYMPH NODE OPEN DEEP AXILLARY NODE 02/11/13 PAST SURGICAL HISTORY OF tonsils and adenoids removed PAST SURGICAL HISTORY OF 02/22/2016 Stent placement, 2. [facility] - Dr. King Family History FAMILY HISTORY Problem Relation Age of Onset Diabetes Mother Patient Allergies ALLERGIES Allergen Reactions Baby Aspirin [Aspir* Other: See Comments Hematuria. Lisinopril Intolerance Frequent dry cough Penicillin G Hives Trees Other: See Comments Positive skin test 05-29-13. Current Medications Current Outpatient Medications on File Prior to Visit Medication Sig dutasteride (AVODART) 0.5 mg capsule Take 1 capsule by mouth once daily. oxybutynin ER (DITROPAN XL) 10 mg 24 hr tablet Take 1 tablet by mouth once daily. losartan (COZAAR) 25 mg tablet Take 1 tablet by mouth once daily. levothyroxine (SYNTHROID) 88 mcg tablet Take 1 tablet by mouth once daily. Take on empty stomach. atorvastatin (LIPITOR) 40 mg tablet Take 1 tablet by mouth once daily. carvedilol (COREG) 3.125 mg tablet Take 1 tablet by mouth twice daily with meals. aspirin 81 mg cap Take 1 capsule by mouth once daily. No current facility-administered medications on file prior to visit. Social History Social History Tobacco Use Smoking status: Former Packs/day: 1.00 Types: Cigarettes Quit date: 03/20/1983 Years since quittin.4 Smokeless tobacco: Never Tobacco comments: Pt smoked on AND off for 20 years. Vaping Use Vaping Use: Never used Substance Use Topics Alcohol use: Yes Comment: very seldom Drug use: No EXAM: BP 110/66 (BP Site: Left Arm, BP Position: Sitting, BP Cuff Size: Regular Adult) Pulse 68 Resp 16 Wt 80.7 kg (178 lb) BMI 25.54 kg/m? General Appearance: Well appearing, alert, in no acute distress, well-hydrated, well nourished. Difficult to get up onto exam table Lungs: Lungs clear to auscultation. No wheezing, rhonchi, rales.. Heart: RRR without murmur, gallop, or rubs. No ectopy. Abdomen: Normal abdominal exam, Abdomen soft, non-tender. Bowel sounds normal. No masses, organomegaly. Extremities: No edema noted on exam in b/l legs. Health Maintenance List URINE ALBUMIN:CREATININE RATIO due on 08/10/2022 DIABETIC FOOT EXAM due on 08/10/2022 SHINGRIX VACCINE(1 of 2) due on 07/23/2023 COVID-19 VACCINE(1) due on 07/23/2023 PNEUMOCOCCAL: 65+(2 - PPSV23 if available, else PCV20) due on 07/23/2023 INFLUENZA(Season Ended) due on 11/18/2022 DILATED RETINAL EXAM due on 11/25/2022 HBA1C due on 12/25/2022 LDL CHOLESTEROL due on 06/26/2023 DTAP,TDAP,TD(2 - Td or Tdap) due on 10/31/2028 ADVANCE DIRECTIVE DISCUSS (more content not included)... [facility] 09-02-2022 History of Presen t illness Narrative Chief Complaint Patient presents with: Memory Problems HPI John Contreras is a 86 year old male who presents here today for memory issues. Pt here today with both of his daughters, Jossie and Jennifer. Pt here to discuss a decline in his memory. Pt not due for follow up until January. Recently just seen in office on 07/22/22; they have noticed a decline in his functioning since then. Pt not taking any thing currently for memory. Pt has not seen any Geriatric Specialists or Brain Health Specialists. Pt at this time states he is having difficulty remembering things or recalling things. He's lost 13 lbs since his last OV. Forgetting to eat meals. Daughter Jennifer states that when she goes to check on him at lunch time she checks his medications. He forgets to take his pills, despite her being on the phone with him and her telling him take his pills. At times he does take his pills, but not regularly. Daughter Jossie states that he's napping more and eating less. They do go out to dinner once a week. Unsure what his sleep cycle is but they feel it's not regular. He does have a dog that he has to care for and take out which he does, but then goes back to bed. She feels he has difficulty swallowing pills. She doesn't feel he has trouble swallowing food. Uses [email or web address] william to watch where he goes when driving. Pt states that generally if he forgets, he just has to think about it and is able to recall where he needs to go. Having difficulty getting up out of his chair, like he's weaker. When he loses something he breaks down almost crying but then stops himself, more emotional. Asking if labs could be done or if he could possibly have a possible UTI. [employer] Nurse came out and did a Wellness visit and performed a Mini-Cog test, that patient did not do real well on. Past medical history, appointments, medications, allergies reviewed. Previous Medical History PAST MEDICAL HISTORY Diagnosis Date Enlarged lymph nodes in armpit 02/11/13 Lymphoma (HCC) 11/2012 NEGATIVE MEDICAL HISTORY Previous Surgical History PAST SURGICAL HISTORY Procedure Laterality Date APPENDECTOMY BX/EXC LYMPH NODE OPEN DEEP AXILLARY NODE 02/11/13 PAST SURGICAL HISTORY OF tonsils and adenoids removed PAST SURGICAL HISTORY OF 02/22/2016 Stent placement, 2. [facility] - Dr. King Family History FAMILY HISTORY Problem Relation Age of Onset Diabetes Mother Patient Allergies ALLERGIES Allergen Reactions Baby Aspirin [Aspir* Other: See Comments Hematuria. Lisinopril Intolerance Frequent dry cough Penicillin G Hives Trees Other: See Comments Positive skin test 05-29-13. Current Medications Current Outpatient Medications on File Prior to Visit Medication Sig dutasteride (AVODART) 0.5 mg capsule Take 1 capsule by mouth once daily. oxybutynin ER (DITROPAN XL) 10 mg 24 hr tablet Take 1 tablet by mouth once daily. losartan (COZAAR) 25 mg tablet Take 1 tablet by mouth once daily. levothyroxine (SYNTHROID) 88 mcg tablet Take 1 tablet by mouth once daily. Take on empty stomach. atorvastatin (LIPITOR) 40 mg tablet Take 1 tablet by mouth once daily. carvedilol (COREG) 3.125 mg tablet Take 1 tablet by mouth twice daily with meals. aspirin 81 mg cap Take 1 capsule by mouth once daily. No current facility-administered medications on file prior to visit. Social History Social History Tobacco Use Smoking status: Former Packs/day: 1.00 Types: Cigarettes Quit date: 03/20/1983 Years since quittin.4 Smokeless tobacco: Never Tobacco comments: Pt smoked on & off for 20 years. Vaping Use Vaping Use: Never used Substance Use Topics Alcohol use: Yes Comment: very seldom Drug use: No EXAM: BP 110/66 (BP Site: Left Arm, BP Position: Sitting, BP Cuff Size: Regular Adult) Pulse 68 Resp 16 Wt 80.7 kg (178 lb) BMI 25.54 kg/m General Appearance: Well appearing, alert, in no acute distress, well-hydrated, well nourished. Difficult to get up onto exam table Lungs: Lungs clear to auscultation. No wheezing, rhonchi, rales.. Heart: RRR without murmur, gallop, or rubs. No ectopy. Abdomen: Normal abdominal exam, Abdomen soft, non-tender. Bowel sounds normal. No masses, organomegaly. Extremities: No edema noted on exam in b/l legs. Health Maintenance List URINE ALBUMIN:CREATININE RATIO due on 08/10/2022 DIABETIC FOOT EXAM due on 08/10/2022 SHINGRIX VACCINE(1 of 2) due on 07/23/2023 COVID-19 VACCINE(1) due on 07/23/2023 PNEUMOCOCCAL: 65+(2 - PPSV23 if available, else PCV20) due on 07/23/2023 INFLUENZA(Season Ended) due on 11/18/2022 DILATED RETINAL EXAM due on 11/25/2022 HBA1C due on 12/25/2022 LDL CHOLESTEROL due on 06/26/2023 DTAP,TDAP,TD(2 - Td or Tdap) due on 10/31/2028 ADVANCE DIRECTIVE DISCUSSION Completed Data reviewed None ASSESSMENT/PLAN: 1. Weight loss - ICD9: 783.21, ICD10: R63.4 (primary diagnosis) - Check labs - If labs normal, referral to Geriatrics/Brain Health - Possible CT/MRI Brain 2. Forgetfulness - ICD9: 780.99, ICD10: R68.89 - As noted above 3. Memory loss - ICD9: 780.93, ICD10: R41.3 - As noted above Pt to complete labs today, will call with results. May also consider brain CT and Geriatrics consult I agree with the Chief Complaint, ROS, and Past Histories independently gathered by the clinical customer support manager and the remaining scribed note accurately describes my personal service to the patient. Medical Decision Making: Problems: Moderate: 1+ chronic illnesses with change Data: Unique test(s) ordered: 3+ Medical Decision Making Level: 4 - Moderate Herminio Gr MD The documentation for this note was completed by Tish Copeland Ma acting as scribe for Herminio Gr MD. September 02, 2022 4:08 PM. Tish Copeland Ma documented in this encounter [facility] 07-22-2022 Note HNO ID: [id number] Author: Herminio Gr MD Service: ? Author Type: Physician Type: Progress Notes Filed: 07/22/2022 11:25 AM Note Text: Chief Complaint Patient presents with: F/U 6 Month HPI John Contreras is a 86 year old male who presents here today for 6 month follow up. Here today with his daughter, Jossie. GI/Uro - Stable, notes incontinence wears a diaper. Gets up once a night to urinate. Taking Avodart 0.5 mg once daily and Ditropan XL 10 mg once daily. Medications were changed at last OV, Finasteride was d/c. Follows with Dr. Peres, Urologist. States he was just seen and supposed to f/u annually or as needed. HTN: Taking Losartan 25 mg daily and Coreg 3.125 mg 1 pill BID. No chest pains, dizziness, or SOB. Denies checking BP at home. Follows up Annually with [facility]. Thyroid: Is taking Synthroid 88 mcg daily, this was increased from 75 mcg after he completed his labs in June, showing TSH 4.3. Denies missing any dosages. Lipid/Glucose: Taking Lipitor 40 mg daily, tolerating well. Taking Aspirin 81 mg daily. Used to watch his diet, admits to being into sweets lately. Does drink Coke zero. Dances daily at home, does a lot of Rock [employer] Roll 50's. 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 Still push mows his yard for about 30 minutes. Cough - Has a dry cough that's been bothering him at night and all day long. Denies any congestion or post nasal drainage. Memory - Reports continued issues with loss of memory. Still driving a car, denies getting lost but he has to stop and think about it. Feels when he's having a conversation he loses what is being discussed. Eventually he will remember what was being discussed. Daughter notes that it may be a little worse, but not terribly. Still lives at home with his cat and dog, overall doing stable. His kids check on him daily, use [email or web address]. HM - Denies feeling down, depressed or hopeless. Depression screening tool completed and reviewed. Based on score and interview, patient is not at risk for depression. Screening tool discussed with patient, and I recommended no further intervention at this time Has Adv Dir/Living Will. Declines Shingles, Covid and Pneumo vaccine. Past medical history, appointments, medications, allergies reviewed. Previous Medical History PAST MEDICAL HISTORY Diagnosis Date Enlarged lymph nodes in armpit 02/11/13 Lymphoma (HCC) 11/2012 NEGATIVE MEDICAL HISTORY Previous Surgical History PAST SURGICAL HISTORY Procedure Laterality Date APPENDECTOMY BX/EXC LYMPH NODE OPEN DEEP AXILLARY NODE 02/11/13 PAST SURGICAL HISTORY OF tonsils and adenoids removed PAST SURGICAL HISTORY OF 02/22/2016 Stent placement, 2. [facility] - Dr. King Family History FAMILY HISTORY Problem Relation Age of Onset Diabetes Mother Patient Allergies ALLERGIES Allergen Reactions Baby Aspirin [Aspir* Other: See Comments Hematuria. Lisinopril Intolerance Frequent dry cough Penicillin G Hives Trees Other: See Comments Positive skin test 05-29-13. Current Medications Current Outpatient Medications on File Prior to Visit Medication Sig losartan (COZAAR) 25 mg tablet Take 1 tablet by mouth once daily. levothyroxine (SYNTHROID) 88 mcg tablet Take 1 tablet by mouth once daily. Take on empty stomach. atorvastatin (LIPITOR) 40 mg tablet Take 1 tablet by mouth once daily. carvedilol (COREG) 3.125 mg tablet Take 1 tablet by mouth twice daily with meals. benzonatate (TESSALON PERLES) 100 mg capsule Take 1 capsule by mouth three times daily as needed for cough. (Patient not taking: Reported on 05/13/2022) finasteride (PROSCAR) 5 mg tablet Take 5 mg by mouth once daily. Prescribed by Dr. Peres aspirin 81 mg cap Take 1 capsule by mouth once daily. No current facility-administered medications on file prior to visit. Social History Social History Tobacco Use Smoking status: Former Packs/day: 1.00 Types: Cigarettes Quit date: 03/20/1983 Years since quittin.3 Smokeless tobacco: Never Tobacco comments: Pt smoked on AND off for 20 years. Vaping Use Vaping Use: Never used Substance Use Topics Alcohol use: Yes Comment: very seldom Drug use: No EXAM: BP 124/72 (BP Site: Left Arm, BP Position: Sitting, BP Cuff Size: Regular Adult) Pulse 64 Resp 16 Wt 86.7 kg (191 lb 3.2 oz) BMI 27.43 kg/m? General Appearance: Well appearing, alert, in no acute distress, well-hydrated, well nourished. Slow to get up on exam. Neck: Supple, no adenopathy; thyroid symmetric, normal size, no bruits. Lungs: Lungs clear to auscultation. No wheezing, rhonchi, rales.. Heart: RRR without murmur, gallop, or rubs. No ectopy. Health Maintenance List COVID-19 VACCINE(1) Never done SHINGRIX VACCINE(1 of 2) Never done PNEUMOCOCCAL: 65+(2 - PPSV23 if available, else PCV20) due on 01/21/2015 ADVANCE DIRECTIVE DISCUSSION due on 03/20/2022 DEPRESSION ASSESSMENT due on 03/20/2022 (more content not included)... [facility] 07-22-2022 History of Presen t illness Narrative Chief Complaint Patient presents with: F/U 6 Month HPI John Contreras is a 86 year old male who presents here today for 6 month follow up. Here today with his daughter, Jossie. GI/Uro - Stable, notes incontinence wears a diaper. Gets up once a night to urinate. Taking Avodart 0.5 mg once daily and Ditropan XL 10 mg once daily. Medications were changed at last OV, Finasteride was d/c. Follows with Dr. Peres, Urologist. States he was just seen and supposed to f/u annually or as needed. HTN: Taking Losartan 25 mg daily and Coreg 3.125 mg 1 pill BID. No chest pains, dizziness, or SOB. Denies checking BP at home. Follows up Annually with [facility]. Thyroid: Is taking Synthroid 88 mcg daily, this was increased from 75 mcg after he completed his labs in June, showing TSH 4.3. Denies missing any dosages. Lipid/Glucose: Taking Lipitor 40 mg daily, tolerating well. Taking Aspirin 81 mg daily. Used to watch his diet, admits to being into sweets lately. Does drink Coke zero. Dances daily at home, does a lot of [employer] 50's. 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 Still push mows his yard for about 30 minutes. Cough - Has a dry cough that's been bothering him at night and all day long. Denies any congestion or post nasal drainage. Memory - Reports continued issues with loss of memory. Still driving a car, denies getting lost but he has to stop and think about it. Feels when he's having a conversation he loses what is being discussed. Eventually he will remember what was being discussed. Daughter notes that it may be a little worse, but not terribly. Still lives at home with his cat and dog, overall doing stable. His kids check on him daily, use [email or web address]. HM - Denies feeling down, depressed or hopeless. Depression screening tool completed and reviewed. Based on score and interview, patient is not at risk for depression. Screening tool discussed with patient, and I recommended no further intervention at this time Has Adv Dir/Living Will. Declines Shingles, Covid and Pneumo vaccine. Past medical history, appointments, medications, allergies reviewed. Previous Medical History PAST MEDICAL HISTORY Diagnosis Date Enlarged lymph nodes in armpit 02/11/13 Lymphoma (HCC) 11/2012 NEGATIVE MEDICAL HISTORY Previous Surgical History PAST SURGICAL HISTORY Procedure Laterality Date APPENDECTOMY BX/EXC LYMPH NODE OPEN DEEP AXILLARY NODE 02/11/13 PAST SURGICAL HISTORY OF tonsils and adenoids removed PAST SURGICAL HISTORY OF 02/22/2016 Stent placement, 2. [facility] - Dr. King Family History FAMILY HISTORY Problem Relation Age of Onset Diabetes Mother Patient Allergies ALLERGIES Allergen Reactions Baby Aspirin [Aspir* Other: See Comments Hematuria. Lisinopril Intolerance Frequent dry cough Penicillin G Hives Trees Other: See Comments Positive skin test 05-29-13. Current Medications Current Outpatient Medications on File Prior to Visit Medication Sig losartan (COZAAR) 25 mg tablet Take 1 tablet by mouth once daily. levothyroxine (SYNTHROID) 88 mcg tablet Take 1 tablet by mouth once daily. Take on empty stomach. atorvastatin (LIPITOR) 40 mg tablet Take 1 tablet by mouth once daily. carvedilol (COREG) 3.125 mg tablet Take 1 tablet by mouth twice daily with meals. benzonatate (TESSALON PERLES) 100 mg capsule Take 1 capsule by mouth three times daily as needed for cough. (Patient not taking: Reported on 05/13/2022) finasteride (PROSCAR) 5 mg tablet Take 5 mg by mouth once daily. Prescribed by Dr. Peres aspirin 81 mg cap Take 1 capsule by mouth once daily. No current facility-administered medications on file prior to visit. Social History Social History Tobacco Use Smoking status: Former Packs/day: 1.00 Types: Cigarettes Quit date: 03/20/1983 Years since quittin.3 Smokeless tobacco: Never Tobacco comments: Pt smoked on & off for 20 years. Vaping Use Vaping Use: Never used Substance Use Topics Alcohol use: Yes Comment: very seldom Drug use: No EXAM: BP 124/72 (BP Site: Left Arm, BP Position: Sitting, BP Cuff Size: Regular Adult) Pulse 64 Resp 16 Wt 86.7 kg (191 lb 3.2 oz) BMI 27.43 kg/m General Appearance: Well appearing, alert, in no acute distress, well-hydrated, well nourished. Slow to get up on exam. Neck: Supple, no adenopathy; thyroid symmetric, normal size, no bruits. Lungs: Lungs clear to auscultation. No wheezing, rhonchi, rales.. Heart: RRR without murmur, gallop, or rubs. No ectopy. Health Maintenance List COVID-19 VACCINE(1) Never done SHINGRIX VACCINE(1 of 2) Never done PNEUMOCOCCAL: 65+(2 - PPSV23 if available, else PCV20) due on 01/21/2015 ADVANCE DIRECTIVE DISCUSSION due on 03/20/2022 DEPRESSION ASSESSMENT due on 03/20/2022 URINE ALBUMIN:CREATININE RATIO due on 08/10/2022 DIABETIC FOOT EXAM due on 08/10/2022 INFLUENZA(Season Ended) due on 11/18/2022 DILATED RETINAL EXAM due on 11/25/2022 HBA1C due on 12/25/2022 LDL CHOLESTEROL due on 06/26/2023 DTAP,TDAP,TD(2 - Td or Tdap) due on 10/31/2028 Data reviewed Appointment on 06/25/2022 Component Date Value Cholesterol, Total 06/25/2022 95 Triglyceride 06/25/2022 86 HDL Cholesterol 06/25/2022 25 (A) Non HDL Cholesterol 06/25/2022 70 Fasting Time 06/25/2022 14 VLDL Cholesterol 06/25/2022 17 TC:HDL Ratio 06/25/2022 3.80 LDL Cholesterol 06/25/2022 53 LDL:HDL Ratio 06/25/2022 2.12 TSH 06/25/2022 4.390 (A) Hemoglobin A1C 06/25/2022 6.8 (A) Estimated Average Glucose 06/25/2022 148 WBC 06/25/2022 4.30 RBC 06/25/2022 3.96 (A) Hemoglobin 06/25/2022 11.9 (A) Hematocrit 06/25/2022 37.3 (A) MCV 06/25/2022 94.2 MCH 06/25/2022 30.1 MCHC 06/25/2022 31.9 RDW-CV 06/25/2022 14.4 Platelet Count 06/25/2022 95 (A) MPV 06/25/2022 10.5 Neutrophils % 06/25/2022 11.7 Abs Neut 06/25/2022 0.51 (A) Lymphocytes % 06/25/2022 79.3 Abs Lymph 06/25/2022 3.41 Monocytes % 06/25/2022 3.3 Abs [place] 06/25/2022 0.14 Eosinophils % 06/25/2022 4.0 Abs Eosin 06/25/2022 0.17 Basophils % 06/25/2022 0.5 Abs Baso 06/25/2022 <0.03 Immature Granulocytes % 06/25/2022 1.2 Abs Immature Gran 06/25/2022 0.05 NRBC 06/25/2022 0.0 Absolute nRBC 06/25/2022 <0.01 Diff Type 06/25/2022 Auto Protein, Total 06/25/2022 6.5 Albumin 06/25/2022 4.0 Calcium, Total 06/25/2022 8.9 Bilirubin, Total 06/25/2022 0.5 Alkaline Phosphatase 06/25/2022 82 AST 06/25/2022 31 ALT 06/25/2022 20 Glucose 06/25/2022 144 (A) BUN 06/25/2022 22 Creatinine 06/25/2022 1.26 (A) Sodium 06/25/2022 141 Potassium 06/25/2022 4.3 Chloride 06/25/2022 104 CO2 06/25/2022 28 Anion Gap 06/25/2022 9 Estimated Glomerular [place]iste[place]* 06/25/2022 56 (A) ASSESSMENT/PLAN: 1. Hypothyroidism, unspecified type - ICD9: 244.9, ICD10: E03.9 (primary diagnosis) - Instructed patient on importance of taking on an empty stomach either first thing in the morning or at bedtime. Stable - Cont current increased regimen, recheck labs in 6 months - TSH BLD 2. Hypertension, essential - ICD9: 401.9, ICD10: I10 - good control - Continue current medication(s) - Recommended regular aerobic exercise. - Recommend home blood pressure monitoring, to bring results in on next visit - Goal of BP <130/80 - COMP METABOLIC PANEL - LIPID PANEL BASIC 3. Atherosclerosis of 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 angina pectoris - ICD9: 414.01, ICD10: I25.10 - Continue current medication regimen. - COMP METABOLIC PANEL - LIPID PANEL BASIC 4. Type 2 diabetes mellitus with chronic kidney disease, without long-term current use of insulin, unspecified CKD stage (HCC) - ICD9: 250.40, 585.9, ICD10: E11.22 - Controlled - Continue current medications - COMP METABOLIC PANEL - HGB A1C - ALBUMIN/CREAT RATIO RND UR 5. Chronic kidney disease, stage 3a (HCC) - ICD9: 585.3, ICD10: N18.31 - Stable cont monitoring through labs - COMP METABOLIC PANEL 6. CLL (chronic lymphocytic leukemia) (HCC) - ICD9: 204.10, ICD10: C91.10 - Check labs, stable - CBC + DIFF 7. Thrombocytopenia (HCC) - ICD9: 287.5, ICD10: D69.6 - check labs, stable - CBC + DIFF 8. Dementia without behavioral disturbance (HCC) - ICD9: 294.20, ICD10: F03.90 - Discussed overall stable 9. Benign prostatic hyperplasia without lower urinary tract symptoms - ICD9: 600.00, ICD10: N40.0 - Cont meds and f/u with Urology 6 mo f/u with labs I agree with the Chief Complaint, ROS, and Past Histories independently gathered by the clinical customer support manager and the remaining scribed note accurately describes my personal service to the patient. Medical Decision Making: Problems: Moderate: 2+ stable chronic illnesses and 1+ chronic illnesses with change Data: Unique test result(s) reviewed: 3+ Unique test(s) ordered: 3+ Risk: Moderate: Drug management Medical Decision Making Level: 4 - Moderate Herminio Gr MD The documentation for this note was completed by Tish Copeland Ma acting as scribe for Herminio Gr MD. July 22, 2022 11:15 AM. Tish Copeland Ma documented in this encounter [facility] 07-04-2022 Miscellaneous Notes The following approved medication requests have been transmitted electronically. Requested Prescriptions Pending Prescriptions Disp Refills losartan (COZAAR) 25 mg tablet 90 tablet 3 Sig: Take 1 tablet by mouth once daily. Michael Cunha APRN.CNP documented in this encounter [facility] 07-01-2022 Miscellaneous Notes Patient was notified Jossie Malik Ma Please notify patient that his lab results show that his thyroid level is off a little, so I would like to increase his thyroid medicine to 88 mcg daily. Will discuss further at his appt in July. Herminio Gr MD documented in this encounter [facility] 05-25-2022 Note HNO ID: [id number] Author: Maura Francisco RT(R) Service: Nuclear Medicine Author Type: Technologist Type: Progress Notes Filed: 05/25/2022 11:38 AM Note Text: Radiology Service Progress Note PATIENT NAME: John Contreras DATE OF SERVICE: May 25, 2022 TIME: 11:25 AM PATIENT IDENTITY VERIFICATION COMPLETED USING TWO (2) IDENTIFIERS: Name and Date of confirmed by patient verbally. FALL SCREENING: Has the patient had 2 falls in the last year or 1 fall with injury or currently using an Ambulatory Assistive Device (Walker, Cane, Wheelchair, Crutches, etc.)? No PATIENT GENDER DATA: Male PATIENT RELEVANT IMPLANT DATA REVIEWED: Not Applicable RADIOLOGY DEPARTMENT: General X-ray: Exam(s) Completed: Lower Extremity X-Ray(s): Foot, Right and Wt. Bearing PERIPHERAL IV DATA: Not applicable SIGNED BY: RT Marek(R) May 25, 2022 11:25 AM [facility] 05-25-2022 Note HNO ID: [id number] Author: Lexi Blandon Service: ? Author Type: Physician Type: Progress Notes Filed: 05/25/2022 12:33 PM Note Text: Initial Podiatric Office Visit: Chief Complaint: This 86 year old male who presents with chief complaint:right 5th toe wound HPI Patient presents to clinic for evaluation of right 5th toe He states he has a sore to his right 5th toe that has been present for 3 months. He does not feel it has gotten any smaller in the last 3 months Patient is not treating the wound with any topical cream He tries to keep padding between the toes. At times, he will sand down the wound with a dremmel. 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 PAIN EVALUATION 05/25/2022 1043 Pain Level: 10 Pain Location: Toe Description: Sharp Duration Amount of Time: 3 Duration Units: Months Frequency: Continuous Intervention/Comfort measure: Reposition;Relaxation Hemoglobin A1C (%) Date Value 01/20/2022 7.0 08/10/2021 6.9 02/03/2021 6.9 10/22/2020 6.7 07/13/2020 6.5 10/15/2019 6.4 12/14/2018 6.3 PCP: Herminio Gr MD PAST MEDICAL HISTORY Diagnosis Date Enlarged lymph nodes in armpit 02/11/13 Lymphoma (HCC) 11/2012 NEGATIVE MEDICAL HISTORY Current Outpatient Medications Medication Sig levothyroxine (SYNTHROID) 75 mcg tablet Take 1 tablet by mouth daily before breakfast. atorvastatin (LIPITOR) 40 mg tablet Take 1 tablet by mouth once daily. carvedilol (COREG) 3.125 mg tablet Take 1 tablet by mouth twice daily with meals. finasteride (PROSCAR) 5 mg tablet Take 5 mg by mouth once daily. Prescribed by Dr. Peres aspirin 81 mg cap Take 1 capsule by mouth once daily. losartan (COZAAR) 25 mg tablet Take 1 tablet by mouth once daily. benzonatate (TESSALON PERLES) 100 mg capsule Take 1 capsule by mouth three times daily as needed for cough. (Patient not taking: Reported on 05/13/2022) No current facility-administered medications for this visit. ALLERGIES Allergen Reactions Baby Aspirin [Aspir* Other: See Comments Hematuria. Lisinopril Intolerance Frequent dry cough Penicillin G Hives Trees Other: See Comments Positive skin test 05-29-13. PAST SURGICAL HISTORY Procedure Laterality Date APPENDECTOMY BX/EXC LYMPH NODE OPEN DEEP AXILLARY NODE 02/11/13 PAST SURGICAL HISTORY OF tonsils and adenoids removed PAST SURGICAL HISTORY OF 02/22/2016 Stent placement, 2. [facility] - Dr. King FAMILY HISTORY Problem Relation Age of Onset Diabetes Mother Social History Tobacco Use Smoking status: Former Packs/day: 1.00 Types: Cigarettes Quit date: 03/20/1983 Years since quittin.2 Smokeless tobacco: Never Tobacco comments: Pt smoked on AND off for 20 years. Vaping Use Vaping Use: Never used Substance Use Topics Alcohol use: Yes Comment: very seldom Drug use: No REVIEW OF SYSTEMS GENERAL: Negative for Malaise, significant weight loss, fever RESPIRATORY: Negative for cough, wheezing and shortness of breath CARDIOVASCULAR: Negative for chest pain, leg swelling and palpitations GI: Negative for abdominal discomfort, blood in stools or black stools and change in bowel habits : Negative for dysuria, frequency and incontinence MUSCULOSKELETAL: Negative for joint pain or swelling, back pain, and muscle pain. SKIN: Negative for lesions, rash, and itching. HEMATOLOGY/LYMPHOLOGY Negative for prolonged bleeding, bruising easily, and swollen nodes. ENDOCRINE: Negative for cold or heat intolerance, polyuria, polydipsia and goiter. NEURO: negative Physical Exam: Constitutional: Pt is a well developed 86 year old male who is alert, oriented and cooperative Eyes: Following during examination. No redness or drainage. Respiratory: RR normal and nonlabored. Even breathing. No evidence of distress or shortness of breath. Psychology: Patient is engaged during conversation. Normal affect and mood. Does not appear depressed or anxious during encounter. Vascular: Dorsalis pedis and posterior tibial pulses palpable as b/l Capillary Fill time < 5 seconds to digits 1-5 b/l Skin temperature warm to warm proximal to distal b/l Hair growth present to digits Neurological: intact light touch/epicritic sensation b/l intact protective sensation no significant neurological deficits Dermatological: Nails 1-5 b/l appear normal. Webspaces clean and dry 1-4 b/l. Skin appears well hydrated and supple. good color, texture, turgor. No open lesions present. Callus to medial aspect of right 5th toe. No ulceration noted. Musculoskeletal/Orthopaedic: Patient has pain to palpation of right 5th toe Foot type is neutral structurally AJ ROM is decreased with knee extended and flexed 1st MPJ is decreased when loaded and no pain or crepitus are noted with ROM. Lesser digitla contractures are noted to right and left foot MTJ, STJ are full and free of pain and crepitus. +5/5 muscle strength dorsiflexion, plantarflexio (more content not included)... [facility] 05-25-2022 Note HNO ID: [id number] Author: Ana Lee LPN Service: ? Author Type: LICENSED NURSE Type: Progress Notes Filed: 05/25/2022 12:33 PM Note Text: AMB ROOMING INTAKE FLOWSHEET DATA Pain Pain Level: 10 Pain Location: Toe Description: Sharp Duration Amount of Time: 3 Duration Units: Months Frequency: Continuous Intervention/Comfort measure: Reposition, Relaxation Patient presents with: Right Foot - New, Pain, Ulcer Ana Lee LPN [facility] 05-25-2022 History of Presen t illness Narrative Initial Podiatric Office Visit: Chief Complaint: This 86 year old male who presents with chief complaint:right 5th toe wound HPI Patient presents to clinic for evaluation of right 5th toe He states he has a sore to his right 5th toe that has been present for 3 months. He does not feel it has gotten any smaller in the last 3 months Patient is not treating the wound with any topical cream He tries to keep padding between the toes. At times, he will sand down the wound with a dremmel. 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 PAIN EVALUATION 05/25/2022 1043 Pain Level: 10 Pain Location: Toe Description: Sharp Duration Amount of Time: 3 Duration Units: Months Frequency: Continuous Intervention/Comfort measure: Reposition;Relaxation Hemoglobin A1C (%) Date Value 01/20/2022 7.0 08/10/2021 6.9 02/03/2021 6.9 10/22/2020 6.7 07/13/2020 6.5 10/15/2019 6.4 12/14/2018 6.3 PCP: Herminio Gr MD PAST MEDICAL HISTORY Diagnosis Date Enlarged lymph nodes in armpit 02/11/13 Lymphoma (HCC) 11/2012 NEGATIVE MEDICAL HISTORY Current Outpatient Medications Medication Sig levothyroxine (SYNTHROID) 75 mcg tablet Take 1 tablet by mouth daily before breakfast. atorvastatin (LIPITOR) 40 mg tablet Take 1 tablet by mouth once daily. carvedilol (COREG) 3.125 mg tablet Take 1 tablet by mouth twice daily with meals. finasteride (PROSCAR) 5 mg tablet Take 5 mg by mouth once daily. Prescribed by Dr. Peres aspirin 81 mg cap Take 1 capsule by mouth once daily. losartan (COZAAR) 25 mg tablet Take 1 tablet by mouth once daily. benzonatate (TESSALON PERLES) 100 mg capsule Take 1 capsule by mouth three times daily as needed for cough. (Patient not taking: Reported on 05/13/2022) No current facility-administered medications for this visit. ALLERGIES Allergen Reactions Baby Aspirin [Aspir* Other: See Comments Hematuria. Lisinopril Intolerance Frequent dry cough Penicillin G Hives Trees Other: See Comments Positive skin test 05-29-13. PAST SURGICAL HISTORY Procedure Laterality Date APPENDECTOMY BX/EXC LYMPH NODE OPEN DEEP AXILLARY NODE 02/11/13 PAST SURGICAL HISTORY OF tonsils and adenoids removed PAST SURGICAL HISTORY OF 02/22/2016 Stent placement, 2. [facility] - Dr. King FAMILY HISTORY Problem Relation Age of Onset Diabetes Mother Social History Tobacco Use Smoking status: Former Packs/day: 1.00 Types: Cigarettes Quit date: 03/20/1983 Years since quittin.2 Smokeless tobacco: Never Tobacco comments: Pt smoked on & off for 20 years. Vaping Use Vaping Use: Never used Substance Use Topics Alcohol use: Yes Comment: very seldom Drug use: No REVIEW OF SYSTEMS GENERAL: Negative for Malaise, significant weight loss, fever RESPIRATORY: Negative for cough, wheezing and shortness of breath CARDIOVASCULAR: Negative for chest pain, leg swelling and palpitations GI: Negative for abdominal discomfort, blood in stools or black stools and change in bowel habits : Negative for dysuria, frequency and incontinence MUSCULOSKELETAL: Negative for joint pain or swelling, back pain, and muscle pain. SKIN: Negative for lesions, rash, and itching. HEMATOLOGY/LYMPHOLOGY Negative for prolonged bleeding, bruising easily, and swollen nodes. ENDOCRINE: Negative for cold or heat intolerance, polyuria, polydipsia and goiter. NEURO: negative Physical Exam: Constitutional: Pt is a well developed 86 year old male who is alert, oriented and cooperative Eyes: Following during examination. No redness or drainage. Respiratory: RR normal and nonlabored. Even breathing. No evidence of distress or shortness of breath. Psychology: Patient is engaged during conversation. Normal affect and mood. Does not appear depressed or anxious during encounter. Vascular: Dorsalis pedis and posterior tibial pulses palpable as b/l Capillary Fill time < 5 seconds to digits 1-5 b/l Skin temperature warm to warm proximal to distal b/l Hair growth present to digits Neurological: intact light touch/epicritic sensation b/l intact protective sensation no significant neurological deficits Dermatological: Nails 1-5 b/l appear normal. Webspaces clean and dry 1-4 b/l. Skin appears well hydrated and supple. good color, texture, turgor. No open lesions present. Callus to medial aspect of right 5th toe. No ulceration noted. Musculoskeletal/Orthopaedic: Patient has pain to palpation of right 5th toe Foot type is neutral structurally AJ ROM is decreased with knee extended and flexed 1st MPJ is decreased when loaded and no pain or crepitus are noted with ROM. Lesser digitla contractures are noted to right and left foot MTJ, STJ are full and free of pain and crepitus. +5/5 muscle strength dorsiflexion, plantarflexion, inversion, eversion b/l Radiographs: ordered ASSESSMENT: (M20.41) Hammertoe of right foot (primary encounter diagnosis) (L84) Callus of toe PLAN: 1. History and physical examination performed. 2. Discussed callus of right 5th toe. Callus is caused by hammetoe deformity. Discussed options for callus not limited to use of padding and/or periodic debridement. Debridement of callus performed today with 15 blade and tissue nippers 3. Will order xray for hammertoe. Could consider surgcial correction but at this time, will try gel padding Lexi Blandon DPM Podiatry [address] [facility] [id number] Dept: [phone] Dept AMB ROOMING INTAKE FLOWSHEET DATA Pain Pain Level: 10 Pain Location: Toe Description: Sharp Duration Amount of Time: 3 Duration Units: Months Frequency: Continuous Intervention/Comfort measure: Reposition, Relaxation Patient presents with: Right Foot - New, Pain, Ulcer Ana Lee LPN documented in this encounter [facility] 05-23-2022 Miscellaneous Notes Pt notified. Reminder mailed to pt home with reminder written at top to get fasting blood work done before the appt. Belem Fierro Ma Labs filed Herminio Gr MD Please see pt message and review pended labs. Call pt to update these have been filed. Tish Copeland Ma PT is requesting to have his labs put in before his six month follow up in July. Kaylyn CERDA documented in this encounter [facility] 05-13-2022 Note HNO ID: [id number] Author: Mary Tellez APRN.[facility] Service: ? Author Type: Nurse Practitioner Type: Progress Notes Filed: 05/13/2022 4:46 PM Note Text: Subjective Patient came in with complaints of pain in the left inside pinky toe for over a year. Patient says it hurts when he touches it. Patient's not never been seen before for this. Patient has no trauma to the area. The history is provided by the patient. No food processing plant manager was used. ROS Objective Physical Exam Constitutional: Appearance: Normal appearance. Pulmonary: Effort: Pulmonary effort is normal. Musculoskeletal: Feet: Feet: Comments: Small raised skin colored area located on inside of right pinky toe. Painful to touch. Neurological: Mental Status: He is alert. PAST MEDICAL HISTORY Diagnosis Date Enlarged lymph nodes in armpit 02/11/13 Lymphoma (HCC) 11/2012 NEGATIVE MEDICAL HISTORY PAST SURGICAL HISTORY Procedure Laterality Date APPENDECTOMY BX/EXC LYMPH NODE OPEN DEEP AXILLARY NODE 02/11/13 PAST SURGICAL HISTORY OF tonsils and adenoids removed PAST SURGICAL HISTORY OF 02/22/2016 Stent placement, 2. [facility] - Dr. King ALLERGIES Baby Aspirin [Aspirin], Lisinopril, Penicillin G, and Trees MEDICATIONS levothyroxine (SYNTHROID) 75 mcg tablet Take 1 tablet by mouth daily before breakfast. atorvastatin (LIPITOR) 40 mg tablet Take 1 tablet by mouth once daily. carvedilol (COREG) 3.125 mg tablet Take 1 tablet by mouth twice daily with meals. finasteride (PROSCAR) 5 mg tablet Take 5 mg by mouth once daily. Prescribed by Dr. Peres aspirin 81 mg cap Take 1 capsule by mouth once daily. losartan (COZAAR) 25 mg tablet Take 1 tablet by mouth once daily. benzonatate (TESSALON PERLES) 100 mg capsule Take 1 capsule by mouth three times daily as needed for cough. (Patient not taking: Reported on 05/13/2022) FAMILY HISTORY Problem Relation Age of Onset Diabetes Mother Social History Tobacco Use Smoking status: Former Packs/day: 1.00 Types: Cigarettes Quit date: 03/20/1983 Years since quittin.1 Smokeless tobacco: Never Tobacco comments: Pt smoked on AND off for 20 years. Vaping Use Vaping Use: Never used Substance Use Topics Alcohol use: Yes Comment: very seldom Drug use: No ASSESSMENT/PLAN: 1. Pain of toe of left foot - ICD9: 729.5, ICD10: M79.675 This time patient was set up with an appointment in 2 weeks to see podiatry. Patient was okay with this care plan. Mary Tellez APRN.[facility] 05-13-2022 History of Presen t illness Narrative Images from the original note were not included. Subjective Patient came in with complaints of pain in the left inside pinky toe for over a year. Patient says it hurts when he touches it. Patient's not never been seen before for this. Patient has no trauma to the area. The history is provided by the patient. No food processing plant manager was used. ROS Objective Physical Exam Constitutional: Appearance: Normal appearance. Pulmonary: Effort: Pulmonary effort is normal. Musculoskeletal: Feet: Feet: Comments: Small raised skin colored area located on inside of right pinky toe. Painful to touch. Neurological: Mental Status: He is alert. PAST MEDICAL HISTORY Diagnosis Date Enlarged lymph nodes in armpit 02/11/13 Lymphoma (HCC) 11/2012 NEGATIVE MEDICAL HISTORY PAST SURGICAL HISTORY Procedure Laterality Date APPENDECTOMY BX/EXC LYMPH NODE OPEN DEEP AXILLARY NODE 02/11/13 PAST SURGICAL HISTORY OF tonsils and adenoids removed PAST SURGICAL HISTORY OF 02/22/2016 Stent placement, 2. [facility] - Dr. King ALLERGIES Baby Aspirin [Aspirin], Lisinopril, Penicillin G, and Trees MEDICATIONS levothyroxine (SYNTHROID) 75 mcg tablet Take 1 tablet by mouth daily before breakfast. atorvastatin (LIPITOR) 40 mg tablet Take 1 tablet by mouth once daily. carvedilol (COREG) 3.125 mg tablet Take 1 tablet by mouth twice daily with meals. finasteride (PROSCAR) 5 mg tablet Take 5 mg by mouth once daily. Prescribed by Dr. Peres aspirin 81 mg cap Take 1 capsule by mouth once daily. losartan (COZAAR) 25 mg tablet Take 1 tablet by mouth once daily. benzonatate (TESSALON PERLES) 100 mg capsule Take 1 capsule by mouth three times daily as needed for cough. (Patient not taking: Reported on 05/13/2022) FAMILY HISTORY Problem Relation Age of Onset Diabetes Mother Social History Tobacco Use Smoking status: Former Packs/day: 1.00 Types: Cigarettes Quit date: 03/20/1983 Years since quittin.1 Smokeless tobacco: Never Tobacco comments: Pt smoked on & off for 20 years. Vaping Use Vaping Use: Never used Substance Use Topics Alcohol use: Yes Comment: very seldom Drug use: No ASSESSMENT/PLAN: 1. Pain of toe of left foot - ICD9: 729.5, ICD10: M79.675 This time patient was set up with an appointment in 2 weeks to see podiatry. Patient was okay with this care plan. Mary Tellez APRN.[facility] documented in this encounter [facility] 02-07-2022 Miscellaneous Notes Notified via WebVisible to follow up in 6 months, sometime in July. Belem Fierro Ma OK to follow up in 6 months Herminio Gr MD Office received call from Fish Protector, Velma Preeira regarding pt. She was attempting to get him rescheduled due to cancelling his 1 month/routine f/u. Pt daughter and pt stating they did not need to keep this appt as the labs were fine that he recently completed. Please review chart. Pt would be due for his 6 mo f/u in January. Advise. Update daughter via WebVisible. Wrote message in on 01/25/22 to PCP. Tish Copeland Ma documented in this encounter [facility] 10-04-2021 Miscellaneous Notes The following approved medication requests have been transmitted electronically. Signed Prescriptions Disp Refills carvedilol (COREG) 3.125 mg tablet 180 tablet 3 Sig: Take 1 tablet by mouth twice daily with meals. EMMY: No Authorizing Provider: HERMINIO GR Ma OK to refill as ordered Herminio Gr MD Last office visit: 08/10/21 F/u scheduled: 02/11/22 Belem Fierro Ma documented in this encounter [facility] 10-04-2021 Miscellaneous Notes The following approved medication requests have been transmitted electronically. Signed Prescriptions Disp Refills levothyroxine (SYNTHROID) 75 mcg tablet 90 tablet 3 Sig: Take 1 tablet by mouth daily before breakfast. EMMY: No Authorizing Provider: HERMINIO GR atorvastatin (LIPITOR) 40 mg tablet 90 tablet 3 Sig: Take 1 tablet by mouth once daily. EMMY: No Authorizing Provider: HERMINIO GR Ma OK to refill as ordered Herminio Gr MD Last office visit: 08/10/21 F/u scheduled: 02/11/22 Belem Fierro Ma documented in this encounter [facility] 10-04-2021 Miscellaneous Notes Done in other phone note Herminio Gr MD Last office visit: 08/10/21 F/u scheduled: 02/11/22 Belem Fierro Ma documented in this encounter [facility] 08-23-2021 History of Presen t illness Narrative Subjective HPI Nontoxic-appearing male presents urgent care chief complaint URI-like symptoms. Duration of symptoms 1 week. Associated symptoms cough chest congestion sinus pain and drainage. Patient states he felt like he had a low-grade fever on and off for the past few days. Presents to the urgent care today to ensure he does not have pneumonia. No OTC medications. Denies any known sick contacts. Denies any high fevers productive cough chest pain shortness of breath pleuritic pain hemoptysis nausea vomiting abdominal pain or change in bowel or bladder habits. Past medical history prescription medication use and allergies reviewed. .Patient presents with: Cough: chest congestion, low fever x1 week PAST MEDICAL HISTORY Diagnosis Date Enlarged lymph nodes in armpit 02/11/13 Lymphoma (HCC) 11/2012 NEGATIVE MEDICAL HISTORY PAST SURGICAL HISTORY Procedure Laterality Date APPENDECTOMY BX/EXC LYMPH NODE OPEN DEEP AXILLARY NODE 02/11/13 PAST SURGICAL HISTORY OF tonsils and adenoids removed PAST SURGICAL HISTORY OF 02/22/2016 Stent placement, 2. [facility] - Dr. King ALLERGIES Baby Aspirin [Aspirin], Lisinopril, Penicillin G, and Trees MEDICATIONS finasteride (PROSCAR) 5 mg tablet Take 5 mg by mouth once daily. Prescribed by Dr. Peres aspirin 81 mg cap Take 1 capsule by mouth once daily. levothyroxine (SYNTHROID) 75 mcg tablet Take 1 tablet by mouth daily before breakfast. atorvastatin (LIPITOR) 40 mg tablet Take 1 tablet by mouth once daily. losartan (COZAAR) 25 mg tablet Take 1 tablet by mouth once daily. carvedilol (COREG) 3.125 mg tablet Take 1 tablet by mouth twice daily with meals. FAMILY HISTORY Problem Relation Age of Onset Diabetes Mother Social History Tobacco Use Smoking status: Former Smoker Packs/day: 1.00 Types: Cigarettes Quit date: 03/20/1983 Years since quittin.4 Smokeless tobacco: Never Used Tobacco comment: Pt smoked on & off for 20 years. Vaping Use Vaping Use: Never used Substance Use Topics Alcohol use: Yes Comment: very seldom Drug use: No BP 122/68 Pulse 82 Temp 36.8 C (98.2 F) Resp 20 Wt 85.8 kg (189 lb 3.2 oz) SpO2 94% BMI 27.15 kg/m Review of Systems Constitutional: Negative for chills, fever and malaise/fatigue. HENT: Positive for congestion and sinus pain. Negative for ear discharge, ear pain and sore throat. Eyes: Negative for blurred vision, pain, discharge and redness. Respiratory: Positive for cough. Negative for hemoptysis, sputum production, shortness of breath, wheezing and stridor. Cardiovascular: Negative for chest pain. Gastrointestinal: Negative for abdominal pain, diarrhea, nausea and vomiting. Musculoskeletal: Positive for myalgias. Skin: Negative for itching and rash. Neurological: Negative for dizziness and headaches. Objective Physical Exam Constitutional: General: He is not in acute distress. Appearance: He is not diaphoretic. HENT: Head: Normocephalic. Jaw: No swelling or pain on movement. Nose: Congestion present. Right Sinus: No maxillary sinus tenderness. Left Sinus: Maxillary sinus tenderness present. Mouth/Throat: Lips: Citrus. Mouth: Mucous membranes are moist. Pharynx: Oropharynx is clear. No pharyngeal swelling, oropharyngeal exudate, posterior oropharyngeal erythema or uvula swelling. Eyes: Conjunctiva/sclera: Conjunctivae normal. Pupils: Pupils are equal, round, and reactive to light. Cardiovascular: Rate and Rhythm: Normal rate and regular rhythm. Heart sounds: Normal heart sounds. Pulmonary: Effort: Pulmonary effort is normal. No tachypnea, accessory muscle usage or respiratory distress. Breath sounds: Normal breath sounds. No stridor. No wheezing, rhonchi or rales. Abdominal: Palpations: Abdomen is soft. Tenderness: There is no abdominal tenderness. There is no guarding or rebound. Musculoskeletal: Cervical back: Normal range of motion and neck supple. No rigidity or tenderness. Lymphadenopathy: Cervical: No cervical adenopathy. Skin: General: Skin is warm and dry. Neurological: Mental Status: He is alert and oriented to person, place, and time. ASSESSMENT/PLAN: 1. Cough - ICD9: 786.2, ICD10: R05.9 - XR CHEST 2V FRONTAL/LAT IMPRESSION: Mild diffuse coarsening of the lung markings. Most pronounced at the lung bases. With duration patient's symptoms chest x-ray findings we will begin doxycycline and cough suppressant prescribed. Will use to cough suppressant as needed. Declined COVID-19 testing. Patient will follow up with PCP 5 to 7 days for reevaluation. Patient was educated on supportive therapies. Patient was instructed to immediately proceed to emergency room for any new, worsening, or symptoms lasting longer than anticipated. The patient's clinical presentation is otherwise unremarkable at this time. Based on exam and clinical finding, the patient is stable for discharge. Plan of care was discussed with patient. Patient verbalizes understanding and agrees to plan of care. This note was generated using [employer] software. It may contain errors in wording, punctuation, or spelling. Deandre Jackson APRN.[facility] documented in this encounter [facility] 08-10-2021 Miscellaneous Notes See WebVisible message form Jossie, Pt daughter and POA documented in this encounter [facility] 08-10-2021 History of Presen t illness Narrative Chief Complaint Patient presents with: 6 Month Exam HPI John Contreras is a 85 year old male who presents here today for a 6 month follow up. Pt here alone. Daughter Jossie tries to come to [facility]. He does have an advanced directive. Has a Health care POA, his daughter. Declined COVID vaccines, pneumonia vaccines, shingles vaccine. Fall: Pt seen in on 07/16/21 due to a fall x 2 after getting caught up in his dog leash and falling into his lawn. Was able to get up after falling. Denies hitting his head when falling, but did report some hip stiffness. Pt had x-rays completed no fx's noted other then degenerative changes to right hip. Denies any stomach, bowel or unchanged urinary issues. Voids every hour during the day, gets up twice per night. Currently on no medications. Follows with Dr. Peres, Urologist at [facility]. Is taking Proscar 5 mg daily. DM: Not taking any diabetes medications. Does not check BS at home. He does have some tingling in the toes at times. Lipids: Tries to watch his diet, but likes to drink wine. Exercises by dancing. Stable on current regimen of Lipitor 40 mg once daily. Tolerating well, no myalgia or gi upset. He still push mows his yard with his self propelled mower, takes about 45 minutes to complete. HTN: Denies checking BP at home or having symptoms of chest pain, sob or dizziness. On current regimen of Coreg 3.125 mg bid and Losartan 25 mg daily. Thyroid: Stable on current regimen of Levothyroxine 75 mcg daily. Denies any missed dosages. Moods/Neuro: Overall moods doing well without medication. Previous was taking Zoloft, but this was d/c. Denies any worsening of memory loss, still forgets where he put things at times. Still driving, takes him a little longer to figure out how to get places but he gets there. Still does his own ADL's. Past medical history, appointments, medications, allergies reviewed. Previous Medical History PAST MEDICAL HISTORY Diagnosis Date Enlarged lymph nodes in armpit 02/11/13 Lymphoma (HCC) 11/2012 NEGATIVE MEDICAL HISTORY Previous Surgical History PAST SURGICAL HISTORY Procedure Laterality Date APPENDECTOMY BX/EXC LYMPH NODE OPEN DEEP AXILLARY NODE 02/11/13 PAST SURGICAL HISTORY OF tonsils and adenoids removed PAST SURGICAL HISTORY OF 02/22/2016 Stent placement, 2. [facility] - Dr. King Family History FAMILY HISTORY Problem Relation Age of Onset Diabetes Mother Patient Allergies ALLERGIES Allergen Reactions Baby Aspirin [Aspir* Other: See Comments Hematuria. Lisinopril Intolerance Frequent dry cough Penicillin G Hives Trees Other: See Comments Positive skin test 05-29-13. Current Medications Current Outpatient Medications on File Prior to Visit Medication Sig levothyroxine (SYNTHROID) 75 mcg tablet Take 1 tablet by mouth daily before breakfast. atorvastatin (LIPITOR) 40 mg tablet Take 1 tablet by mouth once daily. losartan (COZAAR) 25 mg tablet Take 1 tablet by mouth once daily. carvedilol (COREG) 3.125 mg tablet Take 1 tablet by mouth twice daily with meals. No current facility-administered medications on file prior to visit. Social History Social History Tobacco Use Smoking status: Former Smoker Packs/day: 1.00 Types: Cigarettes Quit date: 03/20/1983 Years since quittin.4 Smokeless tobacco: Never Used Tobacco comment: Pt smoked on & off for 20 years. Vaping Use Vaping Use: Never used Substance Use Topics Alcohol use: Yes Comment: very seldom Drug use: No EXAM: BP 126/70 Pulse 66 Resp 16 Wt 87 kg (191 lb 14.4 oz) BMI 27.53 kg/m General Appearance: Well appearing, alert, in no acute distress, well-hydrated, well nourished. and Overweight. Lungs: Lungs clear to auscultation. No wheezing, rhonchi, rales.. Heart: RRR without murmur, gallop, or rubs. No ectopy. Feet: Shoes and socks removed, No deformities, ulcers, calluses, normal distal pulses, sensitive to 10 gm monofilament and mild numbness to the toes Health Maintenance List COVID-19 VACCINE(1) Never done SHINGRIX VACCINE(1 of 2) Never done DIABETIC FOOT EXAM due on 06/06/2019 URINE ALBUMIN:CREATININE RATIO due on 12/15/2019 ADVANCE DIRECTIVE DISCUSSION Never done HBA1C due on 08/03/2021 DILATED RETINAL EXAM due on 10/29/2021 INFLUENZA(Season Ended) due on 11/18/2021 LDL CHOLESTEROL due on 02/03/2022 DTAP,TDAP,TD(2 - Td or Tdap) due on 10/31/2028 PNEUMOVAX AGE 65 AND OVER WITH 5YR LOOKBACK Addressed MENINGOCOCCAL CONJUGATE Aged Out Data reviewed Appointment on 08/03/2021 Component Date Value WBC 08/03/2021 4.41 RBC 08/03/2021 4.05 (A) Hemoglobin 08/03/2021 12.1 (A) Hematocrit 08/03/2021 37.7 (A) MCV 08/03/2021 93.1 MCH 08/03/2021 29.9 MCHC 08/03/2021 32.1 RDW-CV 08/03/2021 14.3 Platelet Count 08/03/2021 88 (A) MPV 08/03/2021 10.9 Neut% 08/03/2021 22.1 Abs Neut 08/03/2021 0.98 (A) Lymph% 08/03/2021 64.9 Abs Lymph 08/03/2021 2.86 [place]% 08/03/2021 5.7 Abs [place] 08/03/2021 0.25 Eosin% 08/03/2021 5.9 Abs Eosin 08/03/2021 0.26 Baso% 08/03/2021 0.9 Abs Baso 08/03/2021 0.04 Immature Gran % 08/03/2021 0.5 Abs Immature Gran 08/03/2021 <0.03 NRBC 08/03/2021 0.0 Absolute nRBC 08/03/2021 <0.01 Diff Type 08/03/2021 Auto ASSESSMENT/PLAN: 1. Controlled type 2 diabetes mellitus without complication, without long-term current use of insulin (HCC) - ICD9: 250.00, ICD10: E11.9 (primary diagnosis) Controlled. - Continue current medications - HGB A1C - ALBUMIN/CREAT RATIO RND UR 2. Atherosclerosis of 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 angina pectoris - ICD9: 414.01, ICD10: I25.10 Continue current medications. 3. Thrombocytopenia (HCC) - ICD9: 287.5, ICD10: D69.6 CBC monitored 4. Hypothyroidism, acquired - ICD9: 244.9, ICD10: E03.9 - Instructed patient on importance of taking on an empty stomach either first thing in the morning or at bedtime. Continue current medications. 5. CLL (chronic lymphocytic leukemia) (HCC) - ICD9: 204.10, ICD10: C91.10 CBC monitored 6. Benign prostatic hyperplasia without lower urinary tract symptoms - ICD9: 600.00, ICD10: N40.0 Continue current medications. Continue with Dr. Peres 7. Memory changes - ICD9: 780.93, ICD10: R41.3 Continue to monitor, no changes since last visit Follow up in 6 months; labs prior. Will call with today's lab results. I agree with the Chief Complaint, ROS, and Past Histories independently gathered by the clinical customer support manager and the remaining scribed note accurately describes my personal service to the patient. Medical Decision Making: Problems: Moderate: 2+ stable chronic illnesses Data: Unique test result(s) reviewed: 1 Unique test(s) ordered: 3+ Risk: Moderate: Drug management Medical Decision Making Level: 4 - Moderate Herminio Gr MD The documentation for this note was completed by Belem Fierro Ma acting as scribe for Herminio Gr MD. August 10, 2021 10:48 AM. Belem Fierro Ma documented in this encounter [facility] 07-16-2021 History of Presen t illness Narrative This note was created using [employer]. Subjective John Contreras is a 85 year old male. HPI Patient presents with a chief complaint of a fall. He states he got caught up in his dog's leash 2 times yesterday and had fallen on his lawn on the grass. He states he got up both times and was able to walk without any significant pain. Did not hit his head. Denies any neck or back pain. No chest pain or shortness of breath. No abdominal pain. He states his hip feels a little bit stiff but he does have known arthritis. No weakness numbness or tingling. No lightheadedness or dizziness. No syncope. Review of Systems Musculoskeletal: Right hip stiffness All other systems reviewed and are negative. PAST MEDICAL HISTORY Diagnosis Date Enlarged lymph nodes in armpit 02/11/13 Lymphoma (HCC) 11/2012 NEGATIVE MEDICAL HISTORY Current Outpatient Medications Medication Sig Dispense Refill loratadine (CLARITIN) 10 mg tablet Take 1 tablet by mouth once daily for 7 days. 7 tablet 0 triamcinolone acetonide (KENALOG) 0.1 % cream Apply 1 application to affected area three times daily for 7 days. Apply sparingly to area for rash/itching. 45 g 0 cephALEXin (KEFLEX) 500 mg capsule Take 1 capsule by mouth three times daily for 7 days. 21 capsule 0 levothyroxine (SYNTHROID) 75 mcg tablet Take 1 tablet by mouth daily before breakfast. 90 tablet 2 atorvastatin (LIPITOR) 40 mg tablet Take 1 tablet by mouth once daily. 90 tablet 2 losartan (COZAAR) 25 mg tablet Take 1 tablet by mouth once daily. 90 tablet 3 carvedilol (COREG) 3.125 mg tablet Take 1 tablet by mouth twice daily with meals. 180 tablet 2 No current facility-administered medications for this visit. PAST SURGICAL HISTORY Procedure Laterality Date APPENDECTOMY BX/EXC LYMPH NODE OPEN DEEP AXILLARY NODE 02/11/13 PAST SURGICAL HISTORY OF tonsils and adenoids removed PAST SURGICAL HISTORY OF 02/22/2016 Stent placement, 2. [facility] - Dr. King FAMILY HISTORY Problem Relation Age of Onset Diabetes Mother Social History Tobacco Use Smoking status: Former Smoker Packs/day: 1.00 Types: Cigarettes Quit date: 03/20/1983 Years since quittin.3 Smokeless tobacco: Never Used Tobacco comment: Pt smoked on & off for 20 years. Vaping Use Vaping Use: Never used Substance Use Topics Alcohol use: Yes Comment: very seldom Drug use: No Objective BP 126/80 Pulse 76 Temp 36.2 C (97.1 F) Resp 18 Wt 89.9 kg (198 lb 3.2 oz) SpO2 98% BMI 28.44 kg/m Physical Exam Vitals reviewed. Constitutional: Appearance: Normal appearance. HENT: Head: Normocephalic and atraumatic. Cardiovascular: Rate and Rhythm: Normal rate and regular rhythm. Heart sounds: Normal heart sounds. Pulmonary: Effort: Pulmonary effort is normal. Breath sounds: Normal breath sounds. Musculoskeletal: Cervical back: Normal range of motion and neck supple. No tenderness. Comments: No tenderness to palpation of the lumbar spine or paraspinal musculature. No pain with range of motion of the back. Normal range of motion of the right and left hips with normal ambulation. Normal strength and sensation. Skin: General: Skin is warm and dry. Neurological: General: No focal deficit present. Mental Status: He is alert. Assessment and Plan ASSESSMENT/PLAN: 1. Fall, initial encounter - ICD9: E888.9, ICD10: W19.XXXA Discussed with patient I did not feel that he likely had a fracture of the right hip since he does not really have any pain in it. He preferred to have an x-ray done. X-ray here showed degenerative changes with no fracture. Follow-up with PCP as needed. Tylenol as needed. Patient agreeable. His fall was mechanical, he tripped over his dog leash. - XR HIP GENERAL 3V PELV/AP/LAT RIGHT Griselda Zepeda PA-C documented in this encounter [facility] 07-11-2021 History of Presen t illness Narrative Images from the original note were not included. This note was created using Scoutmobriter. Subjective John Contreras is a 85 year old male. HPI Patient presents with a chief complaint of a bug bite. He thinks he got bit on the left forearm yesterday. It is itchy. Not painful. No fever or chills. He denies taking anything [id number] orally for it. He did put Polysporin on it with a Band-Aid. No lymphangitic streaking. Review of Systems Constitutional: Negative. HENT: Negative. Respiratory: Negative. Gastrointestinal: Negative. Genitourinary: Negative. Skin: Positive for rash. All other systems reviewed and are negative. PAST MEDICAL HISTORY Diagnosis Date Enlarged lymph nodes in armpit 02/11/13 Lymphoma (HCC) 11/2012 NEGATIVE MEDICAL HISTORY Current Outpatient Medications Medication Sig Dispense Refill levothyroxine (SYNTHROID) 75 mcg tablet Take 1 tablet by mouth daily before breakfast. 90 tablet 2 atorvastatin (LIPITOR) 40 mg tablet Take 1 tablet by mouth once daily. 90 tablet 2 losartan (COZAAR) 25 mg tablet Take 1 tablet by mouth once daily. 90 tablet 3 carvedilol (COREG) 3.125 mg tablet Take 1 tablet by mouth twice daily with meals. 180 tablet 2 loratadine (CLARITIN) 10 mg tablet Take 1 tablet by mouth once daily for 7 days. 7 tablet 0 triamcinolone acetonide (KENALOG) 0.1 % cream Apply 1 application to affected area three times daily for 7 days. Apply sparingly to area for rash/itching. 45 g 0 cephALEXin (KEFLEX) 500 mg capsule Take 1 capsule by mouth three times daily for 7 days. 21 capsule 0 No current facility-administered medications for this visit. PAST SURGICAL HISTORY Procedure Laterality Date APPENDECTOMY BX/EXC LYMPH NODE OPEN DEEP AXILLARY NODE 02/11/13 PAST SURGICAL HISTORY OF tonsils and adenoids removed PAST SURGICAL HISTORY OF 02/22/2016 Stent placement, 2. [facility] - Dr. King FAMILY HISTORY Problem Relation Age of Onset Diabetes Mother Social History Tobacco Use Smoking status: Former Smoker Packs/day: 1.00 Types: Cigarettes Quit date: 03/20/1983 Years since quittin.3 Smokeless tobacco: Never Used Tobacco comment: Pt smoked on & off for 20 years. Vaping Use Vaping Use: Never used Substance Use Topics Alcohol use: Yes Comment: very seldom Drug use: No Objective BP 128/66 Pulse 70 Temp 36.6 C (97.9 F) Resp 16 Wt 89.4 kg (197 lb) SpO2 96% BMI 28.27 kg/m Physical Exam Vitals reviewed. Constitutional: Appearance: Normal appearance. HENT: Head: Normocephalic and atraumatic. Musculoskeletal: Arms: Comments: Patient has an area of faint pinkness with central erythema. No induration. No lymphangitic streaking. No signs of abscess. Skin: General: Skin is warm and dry. Neurological: Mental Status: He is alert. Assessment and Plan ASSESSMENT/PLAN: 1. Bug bite, initial encounter - ICD9: 919.4, ICD10: W57.XXXA Likely more inflammatory reaction to the bug bite. Given loratadine and triamcinolone cream. If not improving or worsening may fill the Keflex but likely does not need this. Patient voiced understanding. Griselda Zepeda PA-C documented in this encounter [facility] 07-11-2021 Instructions Griselda Zepeda PA-C - 07/11/2021 1:50 PM EDT The pinkness around the bite is likely more inflammation from the bite itself than infection. The loratadine and topical cream should help with this. I did print keflex script incase it is worsening but I would not recommend filing today. If fever, worsening redness, streaking or other worsening symptoms may fill. documented in this encounter [facility] 06-24-2021 Miscellaneous Notes The following approved medication requests have been transmitted electronically. Pending Prescriptions Disp Refills LEVOTHYROXINE 75 MCG TABLET 90 tablet 2 Sig: Take 1 tablet by mouth daily before breakfast. EMMY: No ATORVASTATIN 40 MG TABLET 90 tablet 2 Sig: Take 1 tablet by mouth once daily. EMMY: No LOSARTAN 25 MG TABLET 90 tablet 3 Sig: Take 1 tablet by mouth once daily. EMMY: No CARVEDILOL 3.125 MG TABLET 180 tablet 2 Sig: Take 1 tablet by mouth twice daily with meals. EMMY: No Michael Cunha APRN.[employer] 03/09/21 NOV 08/10/21 Bety Mercedes Ma documented in this encounter [facility] Diagnosis Bug bite, initial encounter- Primary [facility]* Diagnosis Fall, initial encounter- Primary [facility]* Diagnosis Controlled type 2 diabetes mellitus without complication, without long-term current use of insulin (HCC)- Primary Atherosclerosis of 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 angina pectoris Thrombocytopenia (HCC) Thrombocytopenia, unspecified Hypothyroidism, acquired Unspecified hypothyroidism CLL (chronic lymphocytic leukemia) (HCC) Chronic lymphoid leukemia, without mention of having achieved remission Benign prostatic hyperplasia without lower urinary tract symptoms Memory changes Memory loss [facility]* Diagnosis Cough- Primary Sinobronchitis Unspecified sinusitis (chronic) [facility]* Diagnosis Hypothyroidism, unspecified type documented in this encounter [facility] note* Diagnosis Hypothyroidism, unspecified type Atherosclerosis of 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 angina pectoris documented in this encounter [facility] note* Diagnosis Pain of toe of left foot- Primary Pain in limb documented in this encounter [facility] note* Diagnosis Controlled type 2 diabetes mellitus without complication, without long-term current use of insulin (HCC)- Primary CLL (chronic lymphocytic leukemia) (HCC) Chronic lymphoid leukemia, without mention of having achieved remission Hypothyroidism, unspecified type Thrombocytopenia (HCC) Thrombocytopenia, unspecified Hypertension, essential Unspecified essential hypertension Atherosclerosis of 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 angina pectoris documented in this encounter [facility] note* Diagnosis Hammertoe of right foot- Primary Callus of toe [facility]* Diagnosis Type 2 diabetes mellitus with chronic kidney disease, without long-term current use of insulin, unspecified CKD stage (HCC)- Primary Hypothyroidism, unspecified type Hypertension, essential Unspecified essential hypertension Atherosclerosis of 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 angina pectoris Chronic kidney disease, stage 3a (HCC) CLL (chronic lymphocytic leukemia) (HCC) Chronic lymphoid leukemia, without mention of having achieved remission Thrombocytopenia (HCC) Thrombocytopenia, unspecified Dementia without behavioral disturbance (HCC) Dementia, unspecified, without behavioral disturbance Benign prostatic hyperplasia without lower urinary tract symptoms [facility] Diagnosis Forgetfulness- Primary Other general symptoms Weight loss Loss of weight Memory loss Chronic kidney disease, stage 3a (HCC) Hypothyroidism, acquired Unspecified hypothyroidism Type 2 diabetes mellitus with chronic kidney disease, without long-term current use of insulin, unspecified CKD stage (HCC) [facility] Diagnosis Forgetfulness- Primary Other general symptoms Memory loss [facility] Diagnosis Mild dementia with anxiety, 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[facility])- Primary JESSEE (generalized anxiety disorder) Generalized anxiety disorder [facility] Diagnosis Atherosclerosis of 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 angina pectoris [facility] Diagnosis Mild dementia with anxiety, 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[facility])- Primary JESSEE (generalized anxiety disorder) Generalized anxiety disorder Situational anxiety Other anxiety states [facility] Diagnosis Hospital discharge follow-up- Primary Other follow-up examination Acute cystitis with hematuria Acute cystitis Acute constipation Unspecified constipation Other specified hypotension [facility] Diagnosis Abdominal pain, unspecified abdominal location- Primary [facility] Diagnosis Mild dementia with anxiety, 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[facility]) [facility] Diagnosis Hospital discharge follow-up- Primary Other follow-up examination Hypotensive episode Hypotension, unspecified Urinary retention Retention of urine, unspecified Constipation, unspecified constipation type Acute on chronic anemia Gastroesophageal reflux disease without esophagitis Esophageal reflux Debility Debility, unspecified Hypothyroidism, acquired Unspecified hypothyroidism Controlled type 2 diabetes mellitus without complication, without long-term current use of insulin (HCC) Atherosclerosis of 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 angina pectoris [facility] Diagnosis Secondary infection of skin- Primary Other specified local infections of skin and subcutaneous tissue [facility] Diagnosis CLL (chronic lymphocytic leukemia) (HCC)- Primary Chronic lymphoid leukemia, without mention of having achieved remission Small lymphocytic lymphoma (HCC) Anemia, unspecified type Thrombocytopenia (HCC) Thrombocytopenia, unspecified documented in this encounter [facility] for referral (narrative)* Diagnostic Procedure Only (Urgent) - Closed Specialty Diagnoses / Procedures Referred By Contac t Referred To Contact XR IMAGING Diagnoses Fall, initial encounter Procedures XR HIP GENERAL 3V PELV/AP/LAT RIGHT RADEX HIP UNILATERAL WITH PELVIS 2-3 VIEWS Griselda Zepeda PA-C [address] [place] [address] Xr Imaging Referral ID Status Reason Start Date Expiration Date V isits Requested Visits Authorized [id number] Closed Auto-Generate d Referral 07/16/2021 08/15/2022 [address] [facility] for referral (narrative)* Diagnostic Procedure Only (Routine) - Closed Specialty Diagnoses / Procedures Referred By Contac t Referred To Contact XR IMAGING Diagnoses Hammertoe of right foot Procedures XR FOOT GENERAL 3V AP/LAT/OBL RIGHT RADEX FOOT COMPLETE MINIMUM 3 VIEWS Lexi Blandon [address] [place] [address] Xr Imaging Referral ID Status Reason Start Date Expiration Date V isits Requested Visits Authorized [id number] Closed Auto-Generate d Referral 05/25/2022 06/24/2023 [address] [facility] for referral (narrative)* Diagnostic Procedure Only (Routine) - Authorized Specialty Diagnoses / Procedures Referred By Contac t Referred To Contact US IMAGING Diagnoses CLL (chronic lymphocytic leukemia) (HCC) Small lymphocytic lymphoma (HCC) Anemia, unspecified type Thrombocytopenia (HCC) Procedures US ABD RIGHT UPPER QUADRANT US ABDOMINAL REAL TIME W/IMAGE LIMITED Chapin Dawn DO [address] [place] [address] [place] [address] Referral ID Status Reason Start Date Expiration Date Visits Requested Visits Authorized [id number] Authorized Auto-Generat ed Referral 04/01/2024 1 1 [facility] Summary Purpose Family History No Family History Records FoundNo Family History Records FoundNo Family History Records Found Advance Directives No Advanced Directives Records FoundDocuments on File Type Date Recorded Patient [employer] Expl anation Advance Directive(s) Advance Directive(s) 04/21/2020 9:19 AM Documents on File Type Date Recorded Patient [employer] Expl anation Advance Directive(s) Advance Directive(s) 04/21/2020 9:19 AM Documents on File Type Date Recorded Patient [employer] Expl anation Advance Directive(s) 04/21/2020 9:19 AM Documents on File Type Date Recorded Patient [employer] Expl anation Advance Directive(s) 04/21/2020 9:19 AM Reason for Referral Specialty Diagnoses / Procedures Referred By Contac t Referred To Contact Gerontology Diagnoses Forgetfulness Memory loss Procedures CONSULT TO GERIATRICS OFFICE/OUTPATIENT [facility] 60-74 MINUTES Herminio Gr MD [address] [place] [address] Referral ID Status Reason Start Date Expiration Date Visits Requested Visits Authorized [id number] Pending Review PCP Requested Referral 09/05/2022 09/05/2023 1 1 Specialty Diagnoses / Procedures Referred By Contac t Referred To Contact MR IMAGING Diagnoses Mild dementia with anxiety, 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HCC) Procedures MRI BRAIN WO IVCON MRI BRAIN BRAIN STEM W/O CONTRAST MATERIAL Juju Tim DO [address] [place] [id number] [facility] Referral ID Status Reason Start Date Expiration Date Visits Requested Visits Authorized [id number] Pending Review Auto-Generat ed Referral 10/14/2022 11/13/2023 1 1 Specialty Diagnoses / Procedures Referred By Contac t Referred To Contact MR IMAGING Diagnoses Mild dementia with anxiety, 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HCC) Procedures MRI BRAIN WO IVCON MRI BRAIN BRAIN STEM W/O CONTRAST MATERIAL Juju Tim DO [address] [place] [address] [place] [id number] Referral ID Status Reason Start Date Expiration Date V isits Requested Visits Authorized [id number] Closed Auto-Generate d Referral 11/08/2022 03/19/2023 1 1 Additional Source Comments (unrecognized sect ion and content) No Status Records FoundNo Status Records FoundNo Status Records Found INFORMATION SOURCE (unrecogn ized section and content) DATE CREATED AUTHOR AUTHOR'S ORGANTAMMY ATION 12/23/2022 [facility] DATE CREATED AUTHOR AUTHOR'S ORGANIZ ATION 04/07/2023 [facility] Source Comments (unrecognize d section and content) In the event this informatio n is protected by the Federal Confidentiality of Alcohol and Drug Abuse Patient Records regulations: The Federal rules restrict any use of the information to criminally investigate or prosecute any alcohol or drug abuse patient.[facility] event this information is protected by the Federal Confidentiality of Alcohol and Drug Abuse Patient Records regulations: The Federal rules restrict any use of the information to criminally investigate or prosecute any alcohol or drug abuse patient.[facility] event this information is protected by the Federal Confidentiality of Alcohol and Drug Abuse Patient Records regulations: The Federal rules restrict any use of the information to criminally investigate or prosecute any alcohol or drug abuse patient.[facility] the event this information is protected by the Federal Confidentiality of Alcohol and Drug Abuse Patient Records regulations: The Federal rules restrict any use of the information to criminally investigate or prosecute any alcohol or drug abuse patient.[facility] the event this information is protected by the Federal Confidentiality of Alcohol and Drug Abuse Patient Records regulations: The Federal rules restrict any use of the information to criminally investigate or prosecute any alcohol or drug abuse patient.[facility] the event this information is protected by the Federal Confidentiality of Alcohol and Drug Abuse Patient Records regulations: The Federal rules restrict any use of the information to criminally investigate or prosecute any alcohol or drug abuse patient.[facility] the event this information is protected by the Federal Confidentiality of Alcohol and Drug Abuse Patient Records regulations: The Federal rules restrict any use of the information to criminally investigate or prosecute any alcohol or drug abuse patient.[facility] the event this information is protected by the Federal Confidentiality of Alcohol and Drug Abuse Patient Records regulations: The Federal rules restrict any use of the information to criminally investigate or prosecute any alcohol or drug abuse patient.[facility] the event this information is protected by the Federal Confidentiality of Alcohol and Drug Abuse Patient Records regulations: The Federal rules restrict any use of the information to criminally investigate or prosecute any alcohol or drug abuse patient.[facility] the event this information is protected by the Federal Confidentiality of Alcohol and Drug Abuse Patient Records regulations: The Federal rules restrict any use of the information to criminally investigate or prosecute any alcohol or drug abuse patient.[facility] the event this information is protected by the Federal Confidentiality of Alcohol and Drug Abuse Patient Records regulations: The Federal rules restrict any use of the information to criminally investigate or prosecute any alcohol or drug abuse patient.[facility] the event this information is protected by the Federal Confidentiality of Alcohol and Drug Abuse Patient Records regulations: The Federal rules restrict any use of the information to criminally investigate or prosecute any alcohol or drug abuse patient.[facility] the event this information is protected by the Federal Confidentiality of Alcohol and Drug Abuse Patient Records regulations: The Federal rules restrict any use of the information to criminally investigate or prosecute any alcohol or drug abuse patient.[facility] the event this information is protected by the Federal Confidentiality of Alcohol and Drug Abuse Patient Records regulations: The Federal rules restrict any use of the information to criminally investigate or prosecute any alcohol or drug abuse patient.[facility] the event this information is protected by the Federal Confidentiality of Alcohol and Drug Abuse Patient Records regulations: The Federal rules restrict any use of the information to criminally investigate or prosecute any alcohol or drug abuse patient.[facility] the event this information is protected by the Federal Confidentiality of Alcohol and Drug Abuse Patient Records regulations: The Federal rules restrict any use of the information to criminally investigate or prosecute any alcohol or drug abuse patient.[facility] the event this information is protected by the Federal Confidentiality of Alcohol and Drug Abuse Patient Records regulations: The Federal rules restrict any use of the information to criminally investigate or prosecute any alcohol or drug abuse patient.[facility] the event this information is protected by the Federal Confidentiality of Alcohol and Drug Abuse Patient Records regulations: The Federal rules restrict any use of the information to criminally investigate or prosecute any alcohol or drug abuse patient.[facility] the event this information is protected by the Federal Confidentiality of Alcohol and Drug Abuse Patient Records regulations: The Federal rules restrict any use of the information to criminally investigate or prosecute any alcohol or drug abuse patient.[facility] the event this information is protected by the Federal Confidentiality of Alcohol and Drug Abuse Patient Records regulations: The Federal rules restrict any use of the information to criminally investigate or prosecute any alcohol or drug abuse patient.[facility] the event this information is protected by the Federal Confidentiality of Alcohol and Drug Abuse Patient Records regulations: The Federal rules restrict any use of the information to criminally investigate or prosecute any alcohol or drug abuse patient.[facility] the event this information is protected by the Federal Confidentiality of Alcohol and Drug Abuse Patient Records regulations: The Federal rules restrict any use of the information to criminally investigate or prosecute any alcohol or drug abuse patient.[facility] the event this information is protected by the Federal Confidentiality of Alcohol and Drug Abuse Patient Records regulations: The Federal rules restrict any use of the information to criminally investigate or prosecute any alcohol or drug abuse patient.[facility] the event this information is protected by the Federal Confidentiality of Alcohol and Drug Abuse Patient Records regulations: The Federal rules restrict any use of the information to criminally investigate or prosecute any alcohol or drug abuse patient.[facility] the event this information is protected by the Federal Confidentiality of Alcohol and Drug Abuse Patient Records regulations: The Federal rules restrict any use of the information to criminally investigate or prosecute any alcohol or drug abuse patient.[facility] the event this information is protected by the Federal Confidentiality of Alcohol and Drug Abuse Patient Records regulations: The Federal rules restrict any use of the information to criminally investigate or prosecute any alcohol or drug abuse patient.[facility] the event this information is protected by the Federal Confidentiality of Alcohol and Drug Abuse Patient Records regulations: The Federal rules restrict any use of the information to criminally investigate or prosecute any alcohol or drug abuse patient.[facility] the event this information is protected by the Federal Confidentiality of Alcohol and Drug Abuse Patient Records regulations: The Federal rules restrict any use of the information to criminally investigate or prosecute any alcohol or drug abuse patient.[facility] the event this information is protected by the Federal Confidentiality of Alcohol and Drug Abuse Patient Records regulations: The Federal rules restrict any use of the information to criminally investigate or prosecute any alcohol or drug abuse patient.[facility] the event this information is protected by the Federal Confidentiality of Alcohol and Drug Abuse Patient Records regulations: The Federal rules restrict any use of the information to criminally investigate or prosecute any alcohol or drug abuse patient.[facility] the event this information is protected by the Federal Confidentiality of Alcohol and Drug Abuse Patient Records regulations: The Federal rules restrict any use of the information to criminally investigate or prosecute any alcohol or drug abuse patient.[facility] the event this information is protected by the Federal Confidentiality of Alcohol and Drug Abuse Patient Records regulations: The Federal rules restrict any use of the information to criminally investigate or prosecute any alcohol or drug abuse patient.[facility] the event this information is protected by the Federal Confidentiality of Alcohol and Drug Abuse Patient Records regulations: The Federal rules restrict any use of the information to criminally investigate or prosecute any alcohol or drug abuse patient.[facility] the event this information is protected by the Federal Confidentiality of Alcohol and Drug Abuse Patient Records regulations: The Federal rules restrict any use of the information to criminally investigate or prosecute any alcohol or drug abuse patient.[facility] the event this information is protected by the Federal Confidentiality of Alcohol and Drug Abuse Patient Records regulations: The Federal rules restrict any use of the information to criminally investigate or prosecute any alcohol or drug abuse patient.[facility] the event this information is protected by the Federal Confidentiality of Alcohol and Drug Abuse Patient Records regulations: The Federal rules restrict any use of the information to criminally investigate or prosecute any alcohol or drug abuse patient.[facility] the event this information is protected by the Federal Confidentiality of Alcohol and Drug Abuse Patient Records regulations: The Federal rules restrict any use of the information to criminally investigate or prosecute any alcohol or drug abuse patient.[facility] the event this information is protected by the Federal Confidentiality of Alcohol and Drug Abuse Patient Records regulations: The Federal rules restrict any use of the information to criminally investigate or prosecute any alcohol or drug abuse patient.[facility] the event this information is protected by the Federal Confidentiality of Alcohol and Drug Abuse Patient Records regulations: The Federal rules restrict any use of the information to criminally investigate or prosecute any alcohol or drug abuse patient.[facility] the event this information is protected by the Federal Confidentiality of Alcohol and Drug Abuse Patient Records regulations: The Federal rules restrict any use of the information to criminally investigate or prosecute any alcohol or drug abuse patient.[facility] Reason for Visit (unrecogniz ed section and content) Reason Comments Derm Problem red, swollen and itc rachel area on left forearm x 1 day Reason Comments Fall Pt reported fall (RT ) hip, lower back denied pain, SOB, chest pain Reason Comments 6 Month Exam Reason Comments Cough chest congestion, lo w fever x1 week Reason Onset Date Comments Refill Request 10/04/2021 Reason Comments Appointment Reason Comments Pain Pt reported (RT) toe pain x1 year denied injury. Reason Comments Results Reason Comments New Pain Ulcer Reason Comments Opened In Error Reason Comments Results Labs Reason Onset Date Comments Refill Request 07/03/2022 Reason Comments F/U 6 Month Reason Comments Memory Problems Reason Comments Results Reason Comments Geriatric Evaluation Reason Onset Date Comments Refill Request 10/26/2022 Reason Comments Geriatrics Depression f/u Reason Comments Follow Up [facility] follow up Reason Comments Patient Question Reason Comments Results Orders Urine Reason Comments Rash L groin x1 hour Reason Comments Fax over labs Reason Comments HOSPITALIZATION Reason Comments Appointment Cancelled Specialty Diagnoses / Procedures Referred By Contac t Referred To Contact MR IMAGING Diagnoses Mild dementia with anxiety, 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HCC) Procedures MRI BRAIN WO IVCON MRI BRAIN BRAIN STEM W/O CONTRAST MATERIAL Juju Tim DO [address] [place] [address] [place] [address] Referral ID Status Reason Start Date Expiration Date V isits Requested Visits Authorized [id number] Closed Auto-Generate d Referral 11/08/2022 03/19/2023 1 1 Reason Comments [facility] Nursing Plan of Care Reason Comments Hospital Follow Up Reason Comments Wound Check had precancerous spo t removed on now spot is red and black in color Reason Comments Established Patient Care Teams (unrecognized sec tion and content) Office Services Specialist Relationship Specialty Start Date End Date Herminio Gr MD [address] [place] [address] PCP - General Family Practice 10/26/10 Office Services Specialist Relationship Specialty Start Date End Date Herminio Gr MD [address] [place] [address] PCP - General Family Practice 10/26/10 Office Services Specialist Relationship Specialty Start Date End Date Herminio Gr MD [address] [place] [address] PCP - General Family Practice 10/26/10 Office Services Specialist Relationship Specialty Start Date End Date Herminio Gr MD [address] [place] [address] PCP - General Family Practice 10/26/10 Office Services Specialist Relationship Specialty Start Date End Date Herminio Gr MD [address] [place] [address] PCP - General Family Practice 10/26/10 Office Services Specialist Relationship Specialty Start Date End Date Herminio Gr MD [address] [place] [address] PCP - General Family Practice 10/26/10 Office Services Specialist Relationship Specialty Start Date End Date Herminio Gr MD [address] [facility] [place] [address] PCP - General Family Practice 10/26/10 Office Services Specialist Relationship Specialty Start Date End Date Herminio Gr MD [address] [facility] [place] [address] PCP - General Family Practice 10/26/10 Office Services Specialist Relationship Specialty Start Date End Date Herminio Gr MD [address] [facility] [place] [address] PCP - General Family Medicine 10/26/10 Office Services Specialist Relationship Specialty Start Date End Date Herminio Gr MD [address] [facility] [place] [address] PCP - General Family Medicine 10/26/10 Office Services Specialist Relationship Specialty Start Date End Date Herminio Gr MD [address] [facility] [place] [place] [address] PCP - General Family Medicine 10/26/10 Office Services Specialist Relationship Specialty Start Date End Date Herminio Gr MD [address] [facility] [place] [address] PCP - General Family Medicine 10/26/10 Office Services Specialist Relationship Specialty Start Date End Date Herminio Gr MD [address] [facility] [place] [address] PCP - General Family Medicine 10/26/10 Office Services Specialist Relationship Specialty Start Date End Date Herminio Gr MD [address] [facility] [place] [address] PCP - General Family Medicine 10/26/10 Office Services Specialist Relationship Specialty Start Date End Date Herminio Gr MD [address] [facility] [place] [address] PCP - General Family Medicine 10/26/10 Office Services Specialist Relationship Specialty Start Date End Date Herminio Gr MD [address] [place] [address] PCP - General Family Medicine 10/26/10 Office Services Specialist Relationship Specialty Start Date End Date Herminio Gr MD [address] [place] [address] PCP - General Family Medicine 10/26/10 Office Services Specialist Relationship Specialty Start Date End Date Herminio Gr MD [address] [place] [address] PCP - General Family Medicine 10/26/10 Office Services Specialist Relationship Specialty Start Date End Date Herminio Gr MD [address] [place] [address] PCP - General Family Medicine 10/26/10 Office Services Specialist Relationship Specialty Start Date End Date Herminio Gr MD [address] [place] [address] PCP - General Family Medicine 10/26/10 Office Services Specialist Relationship Specialty Start Date End Date Herminio Gr MD [address] [place] [address] PCP - General Family Medicine 10/26/10 Office Services Specialist Relationship Specialty Start Date End Date Herminio Gr MD [address] [place] [address] PCP - General Family Medicine 10/26/10 Office Services Specialist Relationship Specialty Start Date End Date Herminio Gr MD [address] [facility] [place] [address] PCP - General Family Medicine 10/26/10 Office Services Specialist Relationship Specialty Start Date End Date Herminio Gr MD [address] [facility] [place] [address] PCP - General Family Medicine 10/26/10 Office Services Specialist Relationship Specialty Start Date End Date Herminio Gr MD [address] [facility] [place] [address] PCP - General Family Medicine 10/26/10 Office Services Specialist Relationship Specialty Start Date End Date Herminio Gr MD [address] [facility] [place] [address] PCP - General Family Medicine 10/26/10 Office Services Specialist Relationship Specialty Start Date End Date Herminio Gr MD [address] [facility] [place] [address] PCP - General Family Medicine 10/26/10 Office Services Specialist Relationship Specialty Start Date End Date Herminio Gr MD [address] [facility] [place] [address] PCP - General Family Medicine 10/26/10 Office Services Specialist Relationship Specialty Start Date End Date Herminio Gr MD [address] [facility] [place] [address] PCP - General Family Medicine 10/26/10 Office Services Specialist Relationship Specialty Start Date End Date Herminio Gr MD [address] [facility] [place] [address] PCP - General Family Medicine 8/9/11 Office Services Specialist Relationship Specialty Start Date End Date Herminio Gr MD [address] [place] [address] PCP - General Family Medicine 10/26/10 FOR RECORDS PERTAINING TO PATIENTS WHO ARE OR HAVE BEEN ENROLLED IN A CHEMICAL DEPENDENCY/SUBSTANCEABUSE PROGRAM, SOME INFORMATION MAY BE OMITTED. This clinical summary was aggregated from multiple sources. Caution should be exercised in using it in the provision of clinical care. This summary normalizes information from multiple sources, and as a consequence, information in this document may materially change the coding, format and clinical context of patient data. In addition, data may be omitted in some cases. CLINICAL DECISIONS SHOULD BE BASED ON THE PRIMARY CLINICAL RECORDS. [employer] provides no warranty or guarantee of the accuracy or completeness of information in this document.
== END | disposition home or self-care (01) ==
LOC: LAB 10:54
PROVIDERS: PCP Family Medicine; Referring Provider Urology; Visit Provider Urology
DX: N40.1 Benign prostatic hyperplasia with lower urinary tract symptoms (principal)
CPT/HCPCS: 87086

== ENCOUNTER 2023-04-12 12:31 | Inpatient (IN) | payer MEDICARE, SELFPAY ==
[2023-04-12] VITALS (17 sets, daily range): BP systolic 87–128; BP diastolic 52–86; PULSE 60–79; RESP 14–22; TEMP 36.2–38.6; O2SAT 89–99; BMI 24.6; BMI 24.3
--- NOTE | 2023-04-12 15:39 | EDS_ITS ---
HPI History of Present Illness Chief Complaint: Complaint Informant: patient and family Onset/Context/Timing Onset: Days Narrative Narrative: Patient presents with family secondary to confusion, fever, concern for UTI. Patient recently saw Dr. Peres and a urine culture has been sent. Family states he has had increased confusion with a fever last night. He had problems controlling urine. Patient denies any pain. He has had decreased appetite with poor p.o. intake. 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 Gr manages cholesterol #90 tabs 05/24/18 [Rx Last Taken 01/03/23] carvedilol 3.125 mg tablet 3.125 mg PO BID bp 01/29/20 [History Last Taken 01/04/23] dutasteride 0.5 mg capsule 0.5 mg PO DAILY prostate 12/08/22 [History Last Taken Unknown] levothyroxine 88 mcg tablet 88 mcg PO DAILY thyroid 12/26/22 [History Last Taken 12/30/22] acetaminophen 500 mg tablet 1,000 mg (2 x 500 mg) PO Q6H PRN PRN Pain Score 1-10 #0 tabs 01/26/23 [Rx Last Taken Unknown] aspirin 81 mg chewable tablet 81 mg PO BREAKFAST #0 tabs 01/26/23 [Rx Last Taken Unknown] pantoprazole 40 mg tablet,delayed release 40 mg PO BID 30 days #60 tabs 01/26/23 [Rx Last Taken Unknown] polyethylene glycol 3350 17 gram oral powder packet 17 g PO DAILY PRN bowels 04/12/23 [History Last Taken Unknown] Allergy/AdvReac Type Severity Reaction Status Date / Time Penicillins Allergy Hives Verified 04/12/23 12:32 tree and shrub pollen Allergy Other Verified 04/12/23 12:32 lisinopril AdvReac Mild cough Verified 04/12/23 12:32 Family History Father , age 39 from [place] CAD (coronary artery disease) Myocardial infarction Sudden cardiac Mother Diabetes Surgical History History of appendectomy History of left heart catheterization Hx of bilateral cataract extraction Hx of cystoscopy Hx of tonsillectomy Presence of coronary angioplasty implant and graft (~02/22/16) S/P inguinal hernia repair Social History household members: none Smoking Status: Former smoker how long ago did patient quit smokin years ago alcohol intake: current alcohol intake frequency: a few times a week Alcohol type: beer substance use type: does not use caffeine: Yes Type: coffee Number of servings: 2 ROS ROS ED Constitutional Constitutional ED: Reports fever(s); Denies chills Eyes Eyes: Denies change in vision or discharge from eye(s) ENT ENT ED: Denies discharge from eye(s), rhinorrhea or sore throat Cardiovascular Cardiovascular: Denies chest pain or palpitations Respiratory/Chest Respiratory/Chest: Denies cough or dyspnea Gastrointestinal Gastrointestinal: Denies abdominal pain, nausea or vomiting Genitourinary Genitourinary ED: Reports dysuria and urinary frequency Musculoskeletal Musculoskeletal: Denies back pain or extremity pain Integumentary Denies Abrasions or rash Neurologic Neurologic: Reports weakness; Denies headache(s) Allergic/Immunologic Allergic/Immunologic ED: Denies lip swelling or urticaria EXAM Physical Exam Const Vital Signs: 04/12/23 12:34 04/12/23 14:48 04/12/23 15:27 Temperature 98.3 F 101.5 F H Temperature Source Oral Oral Pulse Rate 79 Respiratory Rate 22 H Blood Pressure 128/73 H 123/86 H Blood Pressure Mean 91 98 Pulse Ox 96 97 Oxygen Delivery Method Room Air Room Air 04/12/23 16:46 04/12/23 17:00 04/12/23 17:59 Temperature 98.5 F 98.3 F Temperature Source Temporal Temporal Pulse Rate 68 73 69 Respiratory Rate 18 16 20 H Blood Pressure 99/67 111/66 87/54 L Blood Pressure Mean 77 81 65 Pulse Ox 99 Oxygen Delivery Method Positive well nourished and well developed General Appearance ED: well developed HEENT Reports moist mucous membranes Eyes EOMs intact bilaterally Chest Wall inspection of chest normal and palpation of chest normal Resp normal respiratory effort and clear to auscultation bilaterally Cardio regular rate and regular rhythm GI non-tender Auscultation: hypoactive bowel sounds Palpation: soft Extremity normal to inspection Neuro Neuro Narrative: Patient alert answers questions appropriately. Rest with his eyes closed. No focal neurologic deficit. Skin no rashes or lesions noted MDM MDM MDM Narrative Medical decision making narrative: IV line initiated. Patient placed on monitoring engineer. EKG obtained to evaluate for cardiac arrhythmia/ischemia. Labwork obtained to evaluate for leukocytosis, anemia, and electrolyte derangement. Patient given Tylenol for fever and IV fluids for hydration. History & Record Review Discussion w/independent historian: Patient and Family Additional record(s) reviewed:: Prior inpatient record, Prior ED visit and Prior labs Lab Data Attestation: I reviewed the patient's lab results. Labs: Laboratory Results - last 24 hr 04/12/23 04/12/23 15:15 16:11 WBC 3.7 L RBC 3.72 L Hgb 11.3 L Hct 33.9 L MCV 91.1 MCH 30.4 MCHC 33.3 RDW Std Deviation 46.4 H RDW Coeff of [place] 14.0 Plt Count 208 MPV 8.7 Immature Gran % (Auto) 1.300 H Neut % (Auto) 19.8 L Lymph % (Auto) 76.5 H [place] % (Auto) 1.3 Eos % (Auto) 0.3 Baso % (Auto) 0.8 Absolute Neuts (auto) 0.7 L Absolute Lymphs (auto) 2.86 Nucleated RBC % 0 Differential Comment PT 14.6 INR 1.1 APTT 26.4 Sodium 134 L Potassium 4.1 Chloride 103 Carbon Dioxide 28.0 Anion Gap 3 L BUN 21 H Creatinine 1.12 Est GFR (MDRD) Af Amer 80 Est GFR (MDRD) Non-Af 66 BUN/Creatinine Ratio 18.8 Glucose 155 H Lactic Acid 1.3 Calcium 8.9 Total Bilirubin 1.00 AST 29 ALT 23 Alkaline Phosphatase 97 Total Protein 6.7 Albumin 3.2 Globulin 3.5 Albumin/Globulin Ratio 0.9 Urine Color Yellow Urine Clarity Clear Urine pH 6.0 Ur Specific [place] 1.020 Urine Protein 30 H Urine Glucose (UA) Normal Urine Ketones 5 H Urine Occult Blood 10 H Urine Nitrite Negative Urine Bilirubin 1 H Urine Urobilinogen 1 H Ur Leukocyte Esterase Negative Urine RBC 0-5 SEEN Urine WBC 0 SEEN Ur Squamous Epith Cells 0 SEEN Urine Bacteria RARE Urine Mucus 0 SEEN Radiography Chest X-Ray - ED: 1 View, Read by ED Physician, Chronic Changes and No Infiltrates Diagnostic Testing: Clinical Impression(s) from Imaging Studies Chest X-Ray 04/12/23 15:45 IMPRESSION: No definite acute or significant abnormality seen. Electronically Signed: Jamal Mann MD at 16:19 EST , EKG Initial EKG: Attestation: I personally reviewed and interpreted this EKG as follows: Interpretation: Sinus Rhythm (Sinus at 76 with no acute ischemia.) Treatment and Re-Evaluation :: CBC reveals low white count at 3.7 which is consistent with his baseline. Hemoglobin 11.3. He does have 76% lymphocytes noted. 19% neutrophils. Coags unremarkable. Chemistry studies reveal a BUN of 21. Glucose is 155. Lactic acid is normal at 1.3. LFTs unremarkable. Urinalysis obtained via straight cath reveals rare bacteria with 0 white cells and negative nitrites. Chest x- ray reveals no evidence of infiltrate per my interpretation. Radiology interpretation reviewed and agrees. EKG is sinus rhythm with no acute ischemia. It does appear patient's blood pressure has dropped and is currently 87/54. IV fluid bolus at 30 cc/kg was ordered. Swab for COVID, influenza, and RSV is negative. Family states the last time patient had a significant UTI with similar symptoms it did not show up until the culture was done. Culture was sent yesterday and is still pending. Last urine culture from January 09 revealed Pseudomonas putida, sensitive to gentamicin, amikacin, and tobramycin. I discussed patient with hospitalist given his weakness and fever. Antibiotics will be initiated. Discharge Plan Triage Chief Complaint: Complaint ED Provider: Ronna White Dx/Rx/DC Orders Clinical Impression: Fever, Weakness Prescriptions: No Action carvedilol 3.125 MG tablet 3.125 mg PO BID dutasteride 0.5 mg capsule 0.5 mg PO DAILY levothyroxine 88 mcg tablet 88 mcg PO DAILY acetaminophen 500 mg Tablet 1,000 mg PO Q6H PRN PRN (Reason: Pain Score 1-10) Qty: 0 0RF pantoprazole 40 mg Tablet,Delayed Release (Dr/Ec) 40 mg PO BID 30 Days Qty: 60 0RF aspirin 81 mg Tablet,Chewable 81 mg PO BREAKFAST Qty: 0 0RF polyethylene glycol 3350 17 gram Powder In Packet 17 g PO DAILY PRN (Reason: bowels) atorvastatin 40 mg tablet 40 mg PO QHS Qty: 90 3RF Primary Care Provider: Wagner Gr Referrals: Wagner Gr MD [Primary Care Provider] - Disposition Disposition: Acute Care Hospital [facility]
--- NOTE | 2023-04-12 15:45 | RAD_ITS ---
STUDY: X-RAY CHEST REASON FOR EXAM: Male, 87 years old. fever. UTI TECHNIQUE: Single AP portable view of the chest. COMPARISON: 01/05/2023. FINDINGS: The lungs are clear and expanded. There is no demonstrated pleural abnormality. Normal size heart. Normal mediastinum and shreya. Normal visualized pulmonary arteries. Normal visualized aortic arch and descending thoracic aorta. Normal visualized thoracic spine. Normal visualized ribs, clavicles, and shoulders. There is no demonstrated abnormality of the visualized soft tissue structures of the upper abdomen. RAD/Chest 1 View (Portable) IMPRESSION: No definite acute or significant abnormality seen. Electronically Signed: Jamal Mann MD at 16:19 EST ,
[2023-04-12] MEDS: Acetaminophen 500 MG Tablet 1000 MG PO (15:51)
[2023-04-12] MEDS: 0.9% Normal Saline (1000mL) 1,000 ML 150 ML IV (15:51)
[2023-04-12 15:54] LABS: Absolute Lymphocyte Count 2.86 X10^3/uL (0.83-4.51); Absolute Neutrophil Count 0.7 X10^3/uL (2.0-7.7); Basophil# 0.03 X10^3/uL; Basophil% 0.8 % (0-1); Eosinophil# 0.01 X10^3/uL; Eosinophils% 0.3 % (0-5); Hematocrit 33.9 % (40-54); Hemoglobin 11.3 g/dL (13.0-16.5); Lymphocyte # 2.86 X10^3/ul (0.83-4.51); Lymphocyte % 76.5 % (19-41); Mean Corp Hgb Conc 33.3 g/dL (32-36); Mean Corpuscular Hgb 30.4 pg (27.0-32.0); Mean Corpuscular Volume 91.1 fL (80-94); Mean Platelet Vol. 8.7 fl (6.2-12.0); Monocyte# 0.05 X10^3/uL; Monocyte% 1.3 % (0-10); NRBC Flagged by Analyzer 0 % (0-5); Neutrophil # 0.74 X10^3/uL (2.7-7.7); Neutrophil % 19.8 % (47-70); POSITIVE DIFFERENTIAL YES; POSITIVE MORPHOLOGY YES; Platelet Count 208 K/mm3 (150-450); RBC Distribution Width SD 46.4 fl (35.1-43.9); Red Blood Count 3.72 M/mm3 (4.6-6.2); White Blood Count 3.7 K/mm3 (4.4-11.0)
[2023-04-12 15:58] LABS: Differential Indicated SCAN CRITERIA MET
[2023-04-12 16:03] LABS: International Normalized Ratio 1.1; Prothrombin Time (Protime)PT. 14.6 SECONDS (11.7-14.9)
[2023-04-12 16:04] LABS: Partial Thromboplast Time 26.4 Seconds (24.1-36.2)
[2023-04-12 16:14] LABS: Lactic Acid 1.3 mmol/L (0.4-1.9)
[2023-04-12 16:15] LABS: ALB/GLOB Ratio 0.9 RATIO (0.9-2.4); AST(SGOT) 29 U/L (15-37); Alanine Aminotransfer ALT/SGPT 23 U/L (16-61); Albumin, Serum 3.2 g/dL (3.2-5.0); Alkaline Phosphatase 97 U/L (45-117); Anion Gap 3 (5-15); BUN 21 mg/dL (7-18); BUN/Creat Ratio 18.8 RATIO (10-20); Calcium,Total 8.9 mg/dL (8.5-10.1); Chloride 103 mmol/L (98-107); Creatinine, Serum 1.12 mg/dL (0.70-1.30); EST Glomerular Filtration Rate 66 mL/min (>60); Est Glom Filt Rate - Afr Amer 80 mL/min (>60); Globulin 3.5 g/dL (2.2-4.2); Glucose 155 mg/dL (74-106); Potassium 4.1 mmol/L (3.5-5.1); Protein, Total 6.7 g/dL (6.4-8.2); Sodium Level 134 mmol/L (136-145)
[2023-04-12 16:16] LABS: Mucous, Urine 0 SEEN /hpf (<or=2+); Squamous Epithelial Cells - UA 0 SEEN /hpf (0-5); White Blood Cells 0 SEEN /hpf (0-5)
[2023-04-12 16:20] LABS: Color, Urine Yellow (Yellow); Glucose, Dipstick Normal (Normal); Ketone-Dipstick 5 mg/dl (Negative); Leukocyte Esterase-Dipstick Negative /ul (Negative); Nitrite-Dipstick Negative (Negative); Occult Blood-Urine 10 /ul (Negative); Protein-Dipstick 30 mg/dl (Negative); Urine Clarity Clear (Clear); Urine Urobilinogen 1 mg/dl (Normal)
[2023-04-12 16:42] LABS: Urine Bilirubin Dipstick 1 mg/dL (Negative)
[2023-04-12 16:43] LABS: Bacteria RARE /hpf (None Seen)
[2023-04-12 16:44] LABS: Red Blood Cells-Urine 0-5 SEEN /hpf (0-5)
--- OUTSIDE RECORDS SUMMARY | 2023-04-12 17:18 | XMS RPT_ITS | CCD ---
Author Name Unknown Address [id number] [place] [address] Organization [facility] Care Team Providers Care Studio Technician Name Role Phone Vuong, Juana Unavailable Unavailable [...] 7 Intolerance [facility] Work Phone: [phone] (6 sources) Penicillins (Antibiotic) drug allergy 7 Hives [facility] Work Phone: [phone] (20 sources) Aspirin; Translations: [ASPIRIN] Drug Allergy 8 Other: See Comments [facility] (20 sources) Penicillin G; Translations: [PENICILLIN G] Drug Allergy 1 [facility] (20 sources) Tree; Translations: [TREES] Allergy to substance 4 Other: See Comments [facility] Medications Current Medications Medication Drug Class(es) Dates [...] myocardial infarction; Translations: [Atherosclerotic heart disease of [place] coronary artery without angina pectoris] Onset: 6 [...] Unclassified (6 sources) Drug therapy finding; Translations: [terminal make up operator (current) use of antithrombotics/antipl atelets] Onset: 7 03-29-2016 Unclassified (8 sources) Placement of stent in coronary artery ; Translations: [Presence of other cardiac implants and grafts] Onset: 6 03-25-2016 Unclassified (2 sources) Long-term drug therapy; Translations: [Other termite control technician (current) drug therapy] Onset: 7 03-25-2016 Unclassified [...] 02-26-2013 Episodic Other aftercare (4 sources) Other nursing home (current) drug therapy; Translations: [Other nursing home (current) drug therapy] Onset: 03-25-2016 03-25-2016 Episodic [...] 97.9 [degF] Chapin Dawn DO Work Phone: [facility] 03-03-2023 11:31-0500 Body weight 78.93 kg Chapin Dawn DO Work Phone: [facility] 03-03-2023 11:31-0500 Diastolic blood pressure 69 mm[Hg] Chapin Dawn DO Work Phone: [facility] 03-03-2023 11:31-0500 Heart rate 62 /min Chapin Dawn DO Work Phone: [facility] 03-03-2023 11:31-0500 SaO2% (BldA) [Mass fraction] 98 % Chapin Cansecoi DO Work Phone: [facility] 03-03-2023 11:31-0500 Systolic blood pressure 114 mm[Hg] Chapin Cansecoi DO Work Phone: [facility] 02-19-2023 11:43-0500 Body temperature 98.01 [degF] Scar Elder PALLET SORTER.AUTOMOTIVE INTERNET SALES MANAGER Work Phone: [facility] 02-19-2023 11:43-0500 Body weight 77.11 kg Scar Elder PALLET SORTER.AUTOMOTIVE INTERNET SALES MANAGER Work Phone: [facility] 02-19-2023 11:43-0500 Diastolic blood pressure 72 mm[Hg] Scar Elder PALLET SORTER.AUTOMOTIVE INTERNET SALES MANAGER Work Phone: [facility] 02-19-2023 11:43-0500 Heart rate 74 /min Scar Elder PALLET SORTER.AUTOMOTIVE INTERNET SALES MANAGER Work Phone: [facility] 02-19-2023 11:43-0500 Respiratory rate 16 /min Scar Elder PALLET SORTER.AUTOMOTIVE INTERNET SALES MANAGER Work Phone: [facility] 02-19-2023 11:43-0500 SaO2% (BldA) [Mass fraction] 97 % Scar Elder PALLET SORTER.AUTOMOTIVE INTERNET SALES MANAGER Work Phone: [facility] 02-19-2023 11:43-0500 Systolic blood pressure 124 mm[Hg] Scar Elder PALLET SORTER.AUTOMOTIVE INTERNET SALES MANAGER Work Phone: [facility] 02-06-2023 14:26-0500 Body weight 78.93 kg Herminio Gr MD Work Phone: [facility] 02-06-2023 14:26-0500 Diastolic blood pressure 66 mm[Hg] Herminio Gr MD Work Phone: [facility] 02-06-2023 14:26-0500 Heart rate 68 /min Herminio Gr MD Work Phone: [facility] 02-06-2023 14:26-0500 Respiratory rate 20 /min Herminio Gr MD Work Phone: [facility] 02-06-2023 14:26-0500 Systolic blood pressure 114 mm[Hg] Herminio Gr MD Work Phone: [facility] 12-23-2022 16:35-0400 Body temperature 97.5 [degF] Deandre Pendlekingsley PALLET SORTER.AUTOMOTIVE INTERNET SALES MANAGER Work Phone: [facility] 12-23-2022 16:35-0400 Body weight 79.92 kg Deandre Pendlekingsley PALLET SORTER.AUTOMOTIVE INTERNET SALES MANAGER Work Phone: [facility] 12-23-2022 16:35-0400 Diastolic blood pressure 81 mm[Hg] Deandre Pendlebury PALLET SORTER.AUTOMOTIVE INTERNET SALES MANAGER Work Phone: [facility] 12-23-2022 16:35-0400 Heart rate 60 /min Deandre Clementlekingsley PALLET SORTER.AUTOMOTIVE INTERNET SALES MANAGER Work Phone: [facility] 12-23-2022 16:35-0400 Respiratory rate 18 /min Deandre Pendlekingsley PALLET SORTER.AUTOMOTIVE INTERNET SALES MANAGER Work Phone: [facility] 12-23-2022 16:35-0400 SaO2% (BldA) [Mass fraction] 97 % Deandre Pendlekingsley PALLET SORTER.AUTOMOTIVE INTERNET SALES MANAGER Work Phone: [facility] 12-23-2022 16:35-0400 Systolic blood pressure 166 mm[Hg] Deandre Clementlekingsley PALLET SORTER.AUTOMOTIVE INTERNET SALES MANAGER Work Phone: [facility] 12-16-2022 13:05-0400 Body weight 77.56 kg Nicol Faria PALLET SORTER.AUTOMOTIVE INTERNET SALES MANAGER Work Phone: [facility] 12-16-2022 13:05-0400 Diastolic blood pressure 58 mm[Hg] Nicol Faria PALLET SORTER.AUTOMOTIVE INTERNET SALES MANAGER Work Phone: [facility] 12-16-2022 13:05-0400 Heart rate 65 /min Nicol Faria PALLET SORTER.AUTOMOTIVE INTERNET SALES MANAGER Work Phone: [facility] 12-16-2022 13:05-0400 Respiratory rate 16 /min Nicol Faria PALLET SORTER.AUTOMOTIVE INTERNET SALES MANAGER Work Phone: [facility] 12-16-2022 13:05-0400 SaO2% (BldA) [Mass fraction] 97 % Nicol Holleyhof PALLET SORTER.AUTOMOTIVE INTERNET SALES MANAGER Work Phone: [facility] 12-16-2022 13:05-0400 Systolic blood pressure 98 mm[Hg] Nicol Holleyhof PALLET SORTER.AUTOMOTIVE INTERNET SALES MANAGER Work Phone: [facility] 11-11-2022 16:27-0400 Body height 177.8 cm Fangfei Sherry DO Work Phone: [facility] 11-11-2022 16:27-0400 Body weight 80.88 kg Fangfei Sherry DO Work Phone: [facility] 11-11-2022 16:27-0400 Diastolic blood pressure 79 mm[Hg] Fangfei Sherry DO Work Phone: [facility] 11-11-2022 16:27-0400 Heart rate 58 /min Fangfei Sherry DO Work Phone: [facility] 11-11-2022 16:27-0400 Respiratory rate 20 /min Fangfei Sherry DO Work Phone: [facility] 11-11-2022 16:27-0400 Systolic blood pressure 155 mm[Hg] Fangfei Sherry DO Work Phone: [facility] 10-14-2022 13:35-0400 Body height 177.8 cm Fangfei Sherry DO Work Phone: [facility] 10-14-2022 13:35-0400 Body weight 79.33 kg Fangfei Sherry DO Work Phone: [facility] 10-14-2022 13:35-0400 Diastolic blood pressure 61 mm[Hg] Fangfei Sherry DO Work Phone: [facility] 10-14-2022 13:35-0400 Heart rate 63 /min Fangfei Sherry DO Work Phone: [facility] 10-14-2022 13:35-0400 Respiratory rate 20 /min Fangfei Sherry DO Work Phone: [facility] 10-14-2022 13:35-0400 Systolic blood pressure 115 mm[Hg] Fangfei Sherry DO Work Phone: [facility] 09-02-2022 15:47-0400 Body weight 80.74 kg Herminio Gr MD Work Phone: [facility] 09-02-2022 15:47-0400 Diastolic blood pressure 66 mm[Hg] Herminio Gr MD Work Phone: [facility] 09-02-2022 15:47-0400 Heart rate 68 /min Herminio Gr MD Work Phone: [facility] 09-02-2022 15:47-0400 Respiratory rate 16 /min Herminio Gr MD Work Phone: [facility] 09-02-2022 15:47-0400 Systolic blood pressure 110 mm[Hg] Herminio Gr MD Work Phone: [facility] 07-22-2022 11:04-0400 Body weight 86.73 kg Herminio Gr MD Work Phone: [facility] 07-22-2022 11:04-0400 Diastolic blood pressure 72 mm[Hg] Herminio Gr MD Work Phone: [facility] 07-22-2022 11:04-0400 Heart rate 64 /min Herminio Gr MD Work Phone: [facility] 07-22-2022 11:04-0400 Respiratory rate 16 /min Herminio Gr MD Work Phone: [facility] 07-22-2022 11:04-0400 Systolic blood pressure 124 mm[Hg] Herminio Gr MD Work Phone: [facility] 05-13-2022 16:29-0500 Body temperature 97.59 [degF] Mary Tellez APRN.CNP Work Phone: [facility] 05-13-2022 16:29-0500 Body weight 87.73 kg Mary Tellez PALLET SORTER.AUTOMOTIVE INTERNET SALES MANAGER Work Phone: [facility] 05-13-2022 16:29-0500 Diastolic blood pressure 68 mm[Hg] Mary Tellez PALLET SORTER.AUTOMOTIVE INTERNET SALES MANAGER Work Phone: [facility] 05-13-2022 16:29-0500 Heart rate 60 /min Mary Tellez PALLET SORTER.AUTOMOTIVE INTERNET SALES MANAGER Work Phone: [facility] 05-13-2022 16:29-0500 Respiratory rate 18 /min Mary Tellez PALLET SORTER.AUTOMOTIVE INTERNET SALES MANAGER Work Phone: [facility] 05-13-2022 16:29-0500 SaO2% (BldA) [Mass fraction] 97 % Mary Tellez PALLET SORTER.AUTOMOTIVE INTERNET SALES MANAGER Work Phone: [facility] 05-13-2022 16:29-0500 Systolic blood pressure 118 mm[Hg] Mary Tellez PALLET SORTER.AUTOMOTIVE INTERNET SALES MANAGER Work Phone: [facility] 08-23-2021 15:09-0400 Body temperature 98.2 [degF] Deandre Jackson PALLET SORTER.AUTOMOTIVE INTERNET SALES MANAGER Work Phone: [facility] 08-23-2021 15:09-0400 Body weight 85.82 kg Deandre Jackson PALLET SORTER.AUTOMOTIVE INTERNET SALES MANAGER Work Phone: [facility] 08-23-2021 15:09-0400 Diastolic blood pressure 68 mm[Hg] Deandre Jackson PALLET SORTER.AUTOMOTIVE INTERNET SALES MANAGER Work Phone: [facility] 08-23-2021 15:09-0400 Heart rate 82 /min Deandre Pendlekingsley PALLET SORTER.AUTOMOTIVE INTERNET SALES MANAGER Work Phone: [facility] 08-23-2021 15:09-0400 Respiratory rate 20 /min Deandre Pendlekingsley PALLET SORTER.AUTOMOTIVE INTERNET SALES MANAGER Work Phone: [facility] 08-23-2021 15:09-0400 SaO2% (BldA) [Mass fraction] 94 % Deandre Pendlebury PALLET SORTER.AUTOMOTIVE INTERNET SALES MANAGER Work Phone: [facility] 08-23-2021 15:09-0400 Systolic blood pressure 122 mm[Hg] Deandre Jackson APRN.AUTOMOTIVE INTERNET SALES MANAGER Work Phone: [facility] 08-10-2021 10:53-0400 Body weight 87.05 kg Herminio Gr MD Work Phone: [facility] 08-10-2021 10:53-0400 Diastolic blood pressure 70 mm[Hg] Herminio Gr MD Work Phone: [facility] 08-10-2021 10:53-0400 Heart rate 66 /min Herminio Gr MD Work Phone: [facility] 08-10-2021 10:53-0400 Respiratory rate 16 /min Herminio Gr MD Work Phone: [facility] 08-10-2021 10:53-0400 Systolic blood pressure 126 mm[Hg] Herminio Gr MD Work Phone: [facility] 07-16-2021 09:45-0400 Body temperature 97.11 [degF] Griselda Athy PA-C Work Phone: [facility] 07-16-2021 09:45-0400 Body weight 89.9 kg Griselda Athy PA-C Work Phone: [facility] 07-16-2021 09:45-0400 Diastolic blood pressure 80 mm[Hg] Griselda Athy PA-C Work Phone: [facility] 07-16-2021 09:45-0400 Heart rate 76 /min Griselda Athy PA-C Work Phone: [facility] 07-16-2021 09:45-0400 Respiratory rate 18 /min Griselda Athy PA-C Work Phone: [facility] 07-16-2021 09:45-0400 SaO2% (BldA) [Mass fraction] 98 % Griselda Athy PA-C Work Phone: [facility] 07-16-2021 09:45-0400 Systolic blood pressure 126 mm[Hg] Griselda Athy PA-C Work Phone: [facility] 07-11-2021 13:43-0400 Body temperature 97.9 [degF] Griselda Athy PA-C Work Phone: [facility] 07-11-2021 13:43-0400 Body weight 89.36 kg Griselda Athy PA-C Work Phone: [facility] 07-11-2021 13:43-0400 Diastolic blood pressure 66 mm[Hg] Griselda Athy PA-C Work Phone: [facility] 07-11-2021 13:43-0400 Heart rate 70 /min Griselda Athy PA-C Work Phone: [facility] 07-11-2021 13:43-0400 Respiratory rate 16 /min Griselda Athy PA-C Work Phone: [facility] 07-11-2021 13:43-0400 SaO2% (BldA) [Mass fraction] 96 % Griselda Athy PA-C Work Phone: [facility] 07-11-2021 13:43-0400 Systolic blood pressure 128 mm[Hg] Griselda Athy PA-C Work Phone: [facility] 10-10-2016 10:17-0400 BMI (Body Mass Index) 30.56 [...] Heart rate 60 /min Shelbie Lake RN [facility] Work Phone: 03-29-2016 13:31-0500 BMI (Body Mass Index) 31.71 kg/m2 Shelbie Lake RN [facility] Work Phone: 03-29-2016 13:31-0500 BP Diastolic 68 mm[Hg] Shelbie Lake RN [facility] Work Phone: 03-29-2016 13:31-0500 BP Systolic 126 mm[Hg] Shelbie Lake RN [facility] Work Phone: 03-29-2016 13:31-0500 BSA (Body Surface Area) 2.18 m2 Shelbie Lake RN [facility] Work Phone: 03-29-2016 13:31-0500 Height 177.8 cm Shelbie Lake RN [facility] Work Phone: 03-29-2016 13:31-0500 Pulse (Heart Rate) 72 /min Shelbie Lake RN [facility] Work Phone: 03-29-2016 13:31-0500 Respiratory Rate 18 /min Shelbie Lake RN [facility] Work Phone: 03-29-2016 13:31-0500 Weight 100.25 kg Shelbie Lake RN [facility] Work Phone: Encounters Encounter Date Encounter Type Care Provider Facility Start: 03-31-2023 End: 03-31-2023 ambulatory CHAPIN DAWN Facility:[facility] Start: 03-10-2023 End: 03-11-2023 ambulatory HERMINIO Freed [facility] Facility:[facility] Start: 03-03-2023 End: 03-04-2023 ambulatory CHAPIN DAWN Facility:[facility] Start: 03-03-2023 End: 03-04-2023 ambulatory CHAPIN DAWN Facility:[facility] Start: 03-03-2023 End: 03-03-2023 ambulatory Chapin Dawn DO Work Phone: Hematology/Oncology Procedures Date Procedure Procedure Detail Performing Clinician Start: 12-16-2022 Urnls dip stick/tablet rgnt auto w/o microscopy Nicol Faria APRN.AUTOMOTIVE INTERNET SALES MANAGER Work Phone: Start: 11-17-2022 Mri brain brain stem w/o contrast material [facility] Work Phone: Start: 11-17-2022 3d rendering w/interp&postproc diff work station [facility] Work Phone: Start: 10-10-2016 End: 10-10-2016 KAILASH [...] Phone: Start: 03-29-2016 End: 03-30-2016 Referral to partition assembly machine operator Johnny King MD Work Phone: Start: 03-29-2016 [...] Detail Author Start: 10-31-2028 Urine microalbumin profile [facility] Start: 07-23-2023 COVID-19 VACCINE (#1) COVID-19 VACCI NE (#1) [facility] Immunizations Immunization Date Immunization Notes Care Provider Fa claude 10-31-2018 tetanus toxoid, reduced diphtheria toxoid, and acellular pertussis vaccine, adsorbed Herminio Gr MD Work Phone: [facility] 02-27-2018 influenza virus vaccine, unspecified formulation Nicol Faria APRN.CNP Work Phone: [facility] 11-26-2014 pneumococcal conjuga te vaccine, 13 valent Herminio Gr MD Work Phone: [facility] 02-05-2014 influenza, seasonal, injectable Herminio Gr MD Work Phone: [facility] 09-27-2013 tetanus and diphther ia toxoids, adsorbed, preservative free, for adult use (5 Lf of tetanus toxoid and 2 Lf of diphtheria toxoid) Herminio Gr MD Work Phone: [facility] 01-18-2013 influenza virus vaccine, unspecified formulation Herminio Gr MD Work Phone: [facility] Work Phone: 01-24-2012 influenza virus vaccine, unspecified formulation Herminio Gr MD Work Phone: [facility] 12-25-2010 influenza virus vaccine, unspecified formulation Herminio Gr MD Work Phone: [facility] Work Phone: 01-22-2007 influenza virus vaccine, unspecified formulation Herminio Gr MD Work Phone: [facility] Work Phone: Payers Date Payer Category Payer Unknown [employer]IM[employer] HMO POS [id number] 2014-Present [phone] [address] [place] [address] O [id number] 2014 Unknown [employer]IM[employer]IME [employer] HMO POS [id number] 2014-Present [phone] [address] [place] [address] O [id number] 2014 Unknown [id number] Social History Date Type Detail Facility Start: 11-30-2010 End: 12-28-2021 Tobacco smoking status NHIS Ex-smoker [facility] End: 03-20-1983 History of tobacco use Current smoker [facility] End: 03-20-1983 History of tobacco use Cigarette Smoker [facility] Start: 11-30-2010 End: 07-22-2022 Cigarettes smoked current (pack per day) - Reported 1 [facility] Start: 11-30-2010 End: 12-28-2021 Tobacco use and exposure Smokeless tobacco non-user [facility] Start: 03-09-2021 End: 03-03-2023 Alcohol intake Current drinker of alcohol (finding) [facility] Start: 10-22-2020 History SDOH Alcohol Frequency 2 [facility] Start: 10-22-2020 History SDOH Alcohol Std Drinks 1 [facility] Start: 01-01-2013 History SDOH Alcohol Comment very seldom [facility] Start: 10-22-2020 History SDOH Social Connections Phone 5 [facility] Start: 10-22-2020 History SDOH Social Connections Religion 3 [facility] Start: 10-22-2020 History SDOH Social Connections Living 4 [facility] Start: 10-21-2020 Education 21 [facility] Start: 04-12-2013 End: 12-28-2021 Tobacco Comment Pt smoked on & off for 20 years. [facility] Start: 1935 Sex Assigned At Not on file [facility] Start: 07-01-2021 End: 12-28-2021 Exposure to SARS-CoV-2 (event) Not sure [facility] Start: 10-21-2020 End: 07-22-2022 Social connection and isolation panel [facility] Do you belong to any clubs or organizations such as adventism groups, unions, fraternal or athletic groups, or school groups? Yes [facility] Are you now , , , , never or living with a partner? [facility] How often to you hav e a drink containing alcohol? Monthly or less [facility] How many standard dr inks containing alcohol do you have on a typical day? 1 or 2 [facility] How often do you hav e 6 or more drinks on 1 occasion? Never [facility] Adult Depression Scr eening Assessment 0 [facility] Work Phone: Do you feel stress - tense, restless, nervous, or anxious, or unable to sleep at night because your mind is troubled all the time - these days [OSQ] Only a little [facility] (I/We) worried wheth er (my/our) food would run out before (I/we) got money to buy more. Never true [facility] In the past 12 month s, was there a time when you were not able to pay the mortgage or rent on time? No [facility] Clinical Notes 06-24-2021 to 03-31-2023 Chapin Dawn, - 03/03/2023 11:57 AM Scar Rivero APRN.AUTOMOTIVE INTERNET SALES MANAGER - 02/19/2023 11:56 AM ESTTelephone Encounter - Adama Gonzales - 02/10/2023 3:35 PM ESTPatient InstructionsPatient Instructions Note Date & Type Note Facility 03-31-2023 Note HNO ID: [id number] Author: АННА LEE RN Service: ? Author Type: Registered Nurse Type: Progress Notes Filed: 04/03/2023 17:08 Note Text: [facility] received prescription(s) for Calquence from Dr. Dawn's office. PA was initiated and pending review. Plan Name: [employer] / [employer] Case: TBD Timeline: URGENT Fax confirmation: SILVIA Jade, FREDI April 03, 2023 4:45 PM [facility] 03-31-2023 Note HNO ID: [id number] Author: MARK VELA RPh Service: ? Author Type: ? Type: Progress Notes Filed: 04/06/2023 10:56 Note Text: [facility] received prescription(s) for Calquence from Nereyda's office. Benefits investigation was conducted, indicating that a prior authorization is required. PA was approved with details listed below: Plan Name: [employer] / [employer] PA reference number: N/A Approval Dates: 04/03/2023 [...] appropriate. Mark Vela, PharmD Clinical Pharmacist, Oncology [facility] P: ; F: Pool: P [facility] Pool #: [id number] [facility] 03-31-2023 Note HNO ID: [id number] Author: ?, ?, ? Service: ? Author Type: ? Type: Progress Notes Filed: 03/31/2023 14:13 Note Text: [facility] received prescription(s) for Calquence from Dr. Dawn's office. Benefits investigation was conducted, indicating that a prior authorization is required by patient's insurance plan with [employer]. Encounter will be updated once prior authorization has been submitted by [facility]. Becca Smith CPhT [facility], Oncology P: / F: [facility] 03-31-2023 Note HNO ID: [id number] Author: ?, ?, ? Service: ? Author Type: ? 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 Becca Smith CPhT [facility], Oncology P: / F: [facility] 03-31-2023 Note HNO ID: [id number] Author: CHAPIN DAWN, DO Service: ? Author [...] Abs Lymph 1.00 - 4.00 k/uL 3.11 Bartholomew% % 4.2 Abs Bartholomew <0.87 k/uL 0.16 Eosin% % 3.6 Abs Eosin <0.46 k/uL 0.14 Baso% % 1.0 Abs Baso <0.11 k/uL 0.04 Immature Gran % % 1.6 IMM (more content not included)... [facility] 03-10-2023 Note HNO ID: [id number] Author: Teresa Dunn RDMS Service: ? Author Type: Tool Worker Type: Progress Notes Filed: 03/10/2023 1:16 PM [...] RDMS RVMargie March 10, 2023 1:16 PM [facility] 03-03-2023 Note HNO ID: [id number] Author: Chapin Dawn, DO Service: ? Author [...] Abs Lymph 1.00 - 4.00 k/uL 3.11 Bartholomew% % 4.2 Abs Bartholomew <0.87 k/uL 0.16 Eosin% % 3.6 Abs Eosin <0.46 k/uL 0.14 Baso% % 1.0 Abs Baso <0.11 k/uL 0.04 Immature Gran % % 1.6 IMMATURE GRANS (ABS) <0.10 k/uL 0.06 NRBC /100 WBC 0.0 A (more content not included)... [facility] 03-03-2023 History of Presen t illness Narrative [...] Abs Lymph 1.00 - 4.00 k/uL 3.11 Bartholomew% % 4.2 Abs Bartholomew <0.87 k/uL 0.16 Eosin% % 3.6 Abs [...] which included preparing to see the patient, [id number] patient care, completing clinical documentation, obtaining and/or reviewing separately obtained history, performing a medically appropriate examination, counseling and educating the patient/family/caregiver, ordering medications, tests, or procedures, communicating with other HCPs (not separately reported), and communicating results to the patient/family/caregiver. Chapin Dawn DO documented in this encounter [facility] 02-19-2023 Note HNO ID: [id number] Author: Scar Friedman APRN.AUTOMOTIVE INTERNET SALES MANAGER Service: ? Author Type: Nurse Practitioner Type: [...] OPEN DEEP AXILLARY NODE 02/11/2013 EGD W/O MIMBRES [facility] IN[facility] N/A 01/16/2023 PAST SURGICAL HISTORY OF tonsils and adenoids removed PAST SURGICAL HISTORY OF 02/22/2016 Stent placement, 2. [facility] - Dr. King PAST SURGICAL HISTORY [...] if symptoms persist, worsen, change Scar Friedman APRN.[facility] 02-19-2023 History of Presen t illness Narrative [...] OPEN DEEP AXILLARY NODE 02/11/2013 EGD W/O [facility] SPEC VARICIES INJ N/A 01/16/2023 PAST SURGICAL HISTORY OF tonsils and adenoids removed PAST SURGICAL HISTORY OF 02/22/2016 Stent placement, 2. [facility] - Dr. King PAST SURGICAL HISTORY [...] if symptoms persist, worsen, change Scar Friedman APRN.AUTOMOTIVE INTERNET SALES MANAGER documented in this encounter [facility] 02-10-2023 Miscellaneous Notes Pt daughterJossie, returned call [...] Herminio Gr MD documented in this encounter [facility] 02-06-2023 Note HNO ID: [id number] Author: Herminio Gr MD Service: ? Author [...] the day. Pt was discharged home from [facility] on 01/30/23 to stay with his son. Follows with Friend, Gastro. He is on 81 mg ASA, Protonix and Iron. Below copied from [facility] PodPonics: Discharge Diagnosis (1) Postoperative ileus: Status: Resolved [...] SURGICAL HISTORY OF 02/22/2016 Stent placement, 2. [facility] - Dr. King Family History FAMILY [...] Reported on 12/16/2022) (more content not included)... [facility] 02-06-2023 Instructions Tish Copeland Ma - 02/06/2023 [...] Peres to discuss. documented in this encounter [facility] 02-06-2023 History of Presen t illness Narrative [...] the day. Pt was discharged home from [facility] on 01/30/23 to stay with his son. Follows with Dr. Friend, Gastro. He is on 81 mg ASA, Protonix and Iron. Below copied from [facility]: Discharge Diagnosis (1) Postoperative ileus: Status: Resolved [...] SURGICAL HISTORY OF 02/22/2016 Stent placement, 2. [facility] - Dr. King Family History FAMILY [...] Completed HPV Vaccine Aged Out Data reviewed [facility] records ASSESSMENT/PLAN: 1. Hospital discharge follow-up [...] Past Histories independently gathered by the clinical family readiness support assistant and the remaining scribed note accurately describes [...] Tish Copeland Ma documented in this encounter [facility] 02-02-2023 Miscellaneous Notes Noted and agree Herminio Gr MD Chandrika, nurse with [facility] calling. They will be beginning Nursing services with patient. Nursing plans to see pt 2 times per week for 4 weeks then 1 time per week for 3 weeks for disease mgmt. Patient was recently discharged from [place] yesterday with UTI. No call back needed if provider agreeable. Velma Scott RN documented in this encounter [facility] 01-31-2023 Miscellaneous Notes Rosemary notified. Belem Fierro Ma Will call Monday due to it being after 5:00 pm. Tish Copeland Ma I agree and will follow Herminio Gr MD Rosemary @ [facility] calling to let PCP know patient is being discharged home today from [facility] TCU post hospitalization for bilateral inguinal hernia repair. He has home health orders for nursing/PT. Agree and willing to follow orders? Her phone # [phone]. Ophelia Fowler RN Fidelia from [facility] calling, asking for order for nursing and PT. Patient is going to be discharged from [facility] on 01/30. Please advise. documented in this encounter [facility] 01-12-2023 Miscellaneous Notes Patient's daughter, Jossie, called in to cancel appointments as the patient has been inpatient at [facility] since 01/03 and she does not anticipate his being discharged in time for the appointment. Trudy Merrill documented in this encounter [facility] 01-03-2023 Miscellaneous Notes Left message on daughter [...] Chapin Dawn DO Patient is still in [facility] from a hernia surgery on 12/27/22 and not sure when he will be discharged and he maybe discharged to a SNF. Tri is asking if Dr. Dawn would want labs drawn while he is at [facility]. Please advise. Trudy Merrill documented in this encounter [facility] 12-26-2022 Miscellaneous Notes Sandy with [facility] PAT called over and wanted TSH and urine labs faxed over. Faxed to # [phone]. documented in this encounter [facility] 12-23-2022 Note HNO ID: [id number] Author: Deandre Jackson APRN.AUTOMOTIVE INTERNET SALES MANAGER Service: ? Author Type: Nurse Practitioner Type: [...] SURGICAL HISTORY OF 02/22/2016 Stent placement, 2. [facility] - Dr. King ALLERGIES Baby Aspirin [...] agrees with plan of care. Deandre Jackson APRN.[facility] 12-23-2022 History of Presen t illness Narrative [...] SURGICAL HISTORY OF 02/22/2016 Stent placement, 2. [facility] - Dr. King ALLERGIES Baby Aspirin [...] Deandre Jackson APRN.ARPIT documented in this encounter [facility] 12-20-2022 Miscellaneous Notes Pt and his daughter [...] Nicol Faria APRN.ARPIT documented in this encounter [facility] 12-17-2022 Miscellaneous Notes Patient notified and verbalized [...] appt is 02/03/2023 documented in this encounter [facility] 12-16-2022 Note HNO ID: [id number] Author: Nicol Faria APRN.ARPIT Service: ? Author Type: Nurse Practitioner Type: Progress Notes Filed: 12/16/2022 2:30 PM Note Text: This is a 87 year old male who presents today with: Patient presents with: Follow Up: [facility] follow up HISTORY OF PRESENT ILLNESS: John Contreras is a 87 year old male. Patient presents with: Follow Up: [facility] follow up HOSPITAL/ER FOLLOW UP: Reason for visit: Hypotension/Fever Which facility: [facility] ER Date of visit: 12/08/2022-12/09/2022 Diagnosis: [...] urinary symptoms. Culture results not noted from [facility]. Daughters refer that he had a [...] SURGICAL HISTORY OF 02/22/2016 Stent placement, 2. [facility] - Dr. King ALLERGIES Baby Aspirin [...] - Still schreiber (more content not included)... [facility] 12-16-2022 Instructions Nicol Faria APRN.ARPIT - 12/16/2022 1:28 PM EDT Urine will be sent off for culture Start Cipro, take twice daily with food. Stay well hydrated. If needed may use Miralax 1-2 times per day for constipation. Red flag symptoms go to ER Follow up pending test results. documented in this encounter [facility] 12-16-2022 History of Presen t illness Narrative This is a 87 year old male who presents today with: Patient presents with: Follow Up: [facility] follow up HISTORY OF PRESENT ILLNESS: John Contreras is a 87 year old male. Patient presents with: Follow Up: [facility] follow up HOSPITAL/ER FOLLOW UP: Reason for visit: Hypotension/Fever Which facility: [facility] ER Date of visit: 12/08/2022-12/09/2022 Diagnosis: [...] urinary symptoms. Culture results not noted from [facility]. Daughters refer that he had a [...] SURGICAL HISTORY OF 02/22/2016 Stent placement, 2. [facility] - Dr. King ALLERGIES Baby Aspirin [...] hematuria - ICD9: 595.0, ICD10: N30.01 - [facility] Culture results not available. - Start [...] discussed and patient voices understanding. Nicol Faria APRN.AUTOMOTIVE INTERNET SALES MANAGER This note was partially generated using Vertro recognition system. Note was reviewed for accuracy. There may be minor misspellings or grammar miscues with Seeder voice recognition. documented in this encounter [facility] 12-08-2022 Note HNO ID: [id number] Author: Nicol Faria APRN.AUTOMOTIVE INTERNET SALES MANAGER Service: ? Author Type: Nurse Practitioner Type: [...] SURGICAL HISTORY OF 02/22/2016 Stent placement, 2. [facility] - Dr. King ALLERGIES Baby Aspirin [...] plan as #1. (more content not included)... [facility] 11-17-2022 Note HNO ID: [id number] Author: Chandrika Mason RT(Amish) Service: ? Author [...] RT Lakshmi(Amish) November 17, 2022 7:48 AM [facility] 11-17-2022 History of Presen t illness Narrative [...] 2022 7:48 AM documented in this encounter [facility] 11-11-2022 Note HNO ID: [id number] Author: Juju Tim DO Service: ? Author Type: Physician Type: Progress Notes Filed: 11/11/2022 4:52 PM Note Text: Juju Tim DO [facility] [address] [place] [address] Visit Date: November 10, 2022 Name: Mr.Clyde Abdiaziz Contreras Date of : 1935 MRN/E #: [id number] Chief Complaint: Patient presents with: Geriatrics: Depression [...] SURGICAL HISTORY OF 02/22/2016 Stent placement, 2. [facility] - Dr. King Social History Tobacco [...] once daily. levothy (more content not included)... [facility] 11-11-2022 Instructions Juju Tim DO - 11/11/2022 4:42 PM EDT Images from the original note were not included. Tips to help with your memory and cognition 1. COGNITIVE STIMULATION Keep your brain active by doing mentally stimulating activities for 30 minutes twice a day. Here are few suggested activities: - crossword puzzles - jigsaw puzzles - [employer] games - word finding - problem solving [...] complex ones, such as the car or well tester; later, the telephone; and lastly even table [...] with complicated tasks such as planning a democrat or handling finances. They may have problems [...] insist, they should be evaluated by a bulk driver rehabilitation liaison to assess their driving risks. They might get therapy to improve their driving ability and lower their risks. Medicare covers an Occupational Therapy evaluation for certain diagnoses, such as stroke or lack of coordination. If Medicare does not cover it for you in your region of the country, consider an evaluation by a private driving school from an instructor who is certified in bulk driver rehabilitation. Moderate: People in the moderate [...] benefits may help reduce caregiver burden, delay longterm placement, and improve neuropsychiatric problems (such as [...] older adults with moderate AD may delay longterm entry but is associated with an increased [...] not proven to have benefit. References National [place] on Aging. Alzheimer's Disease Education & Referral Center. www.lucy.nih.gov Accessed 10/15/2010 Alzheimer's Association. Alzheimer's Disease: Stages of Alzheimer's Disease. www.alz.org Accessed 10/15/2010 DEVAUGHN Pisano. Alzheimer's Disease. [place] Journal of Medicine 2003; Isauro 1;351(1):56-67 Copyright 6865-4844 [facility]. All rights reserved This information is provided by the [facility] and is not intended to replace the medical advice of your doctor or health care provider. Please consult your health care provider for advice about a specific medical condition. For additional health information, please contact the Center for Consumer Health Information at the [facility] or toll-free extension [phone]. If you prefer, you may visit [email or web address] or [email or web address]. This document was last reviewed on: 2010 index#46092 documented in this encounter [facility] 11-11-2022 History of Presen t illness Narrative Images from the original note were not included. Juju Tim DO [facility] [address] [place] [address] [address] [place] [address] Visit Date: November 10, 2022 Name: Mr.Clyde Abdiaziz Contreras Date of : 1935 MRN/E #: [id number] Chief Complaint: Patient presents with: Geriatrics: Depression [...] SURGICAL HISTORY OF 02/22/2016 Stent placement, 2. [facility] - Dr. King Social History Tobacco [...] plans. This note was partially generated using Seeder voice recognition system, and there may be some incorrect words, spellings, and punctuation that were not noted in checking the note before saving. documented in this encounter [facility] 10-27-2022 Miscellaneous Notes The following approved medication [...] Katie Mcdaniels LPN documented in this encounter [facility] 10-14-2022 Note HNO ID: [id number] Author: Juju Tim, Service: ? Author Type: Physician Type: Progress Notes Filed: 10/14/2022 3:47 PM Note Text: Juju Tim DO [facility] 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 Yes Is a power of school cafeteria head cook in place for financial needs? Yes Is a power of school cafeteria head cook in place for health care decisions? Yes [...] of the ti (more content not included)... [facility] 10-14-2022 Instructions Juju TimDO - 10/14/2022 2:49 PM EDT Images from the original note were not included. Tips to help with your memory and cognition 1. COGNITIVE STIMULATION Keep your brain active by doing mentally stimulating activities for 30 minutes twice a day. Here are few suggested activities: - crossword puzzles - jigsaw puzzles - [employer] games - word finding - problem solving activities - learn a new hobby or take a class 2. SOCIAL INTERACTION Talk to a friend, family member or neighbor at least once a day. Engage in community activities. Consider joining your local [employer] center. 3. PHYSICAL ACTIVITY Make sure you [...] multi-infarct cognitive impairment, inherited disorders such as Anton's disease, and infections such as HIV. The most common causes of dementia include: Degenerative neurological diseases, such as Alzheimer's, frontotemporal lobar degeneration, dementia with Lewy bodies, Parkinson's, and Anton's diseases Vascular disorders, such as multi-infarct dementia, [...] of the underlying disease however. References National [place] of Neurological Disorders & Stroke. NINDS Dementia Information Page Accessed 11/25/2013. Family Caregiver Melrude. [facility] on Caregiving. Is this Dementia and What Does it Mean? Accessed 11/25/2013. National [place] on Aging. Forgetfulness: Knowing When to Ask for Help Accessed 11/25/2013. Copyright 8720-6846 [facility]. All rights reserved This information is provided by the [facility] and is not intended to replace the medical advice of your doctor or health care provider. Please consult your health care provider for advice about a specific medical condition. For additional health information, please contact the Center for Consumer Health Information at the [facility] or toll-free extension [phone]. If you prefer, you may visit [email or web address] or [email or web address]. This document was last reviewed on: 2013 index#7470 Stages and Treatment of Alzheimer's Disease Alzheimer's [...] complex ones, such as the car or well tester; later, the telephone; and lastly even table [...] with complicated tasks such as planning a democrat or handling finances. They may have problems [...] insist, they should be evaluated by a bulk driver rehabilitation liaison to assess their driving risks. They might get therapy to improve their driving ability and lower their risks. Medicare covers an Occupational Therapy evaluation for certain diagnoses, such as stroke or lack of coordination. If Medicare does not cover it for you in your region of the country, consider an evaluation by a private driving school from an instructor who is certified in bulk driver rehabilitation. Moderate: People in the moderate [...] benefits may help reduce caregiver burden, delay longterm placement, and improve neuropsychiatric problems (such as [...] older adults with moderate AD may delay longterm entry but is associated with an increased [...] not proven to have benefit. References National [place] on Aging. Alzheimer's Disease Education & Referral Center. www.lucy.nih.gov Accessed 10/15/2010 Alzheimer's Association. Alzheimer's Disease: Stages of Alzheimer's Disease. www.alz.org Accessed 10/15/2010 DEVAUGHN Pisano. Alzheimer's Disease. [place] Journal of Medicine 2003; Isauro 1;351(1):56-67 Copyright 5300-3810 [facility]. All rights reserved This information is provided by the [facility] and is not intended to replace the medical advice of your doctor or health care provider. Please consult your health care provider for advice about a specific medical condition. For additional health information, please contact the Center for Consumer Health Information at the [facility] or toll-free extension [phone]. If you prefer, you may visit [email or web address] or [email or web address]. This document was last reviewed on: 2010 index#03630 documented in this encounter [facility] 10-14-2022 History of Presen t illness Narrative Images from the original note were not included. Juju Tim DO 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 Yes Is a power of school cafeteria head cook in place for financial needs? Yes Is a power of school cafeteria head cook in place for health care decisions? Yes Is palliative or hospice care appropriate for the patient? No II) Mentation: [place] Cognitive Exam (MOCA): not on file Cognitive [...] vision impairment and wears glasses Follows with tower climber:NO Hearing - Hearing aid : Hearing impairment, [...] SURGICAL HISTORY OF 02/22/2016 Stent placement, 2. [facility] - Dr. King Social History Tobacco [...] community resources. JUJU TIM DO GERIATRIC MEDICINE [facility] Discussed the above with the patient using shared decision making. The patient is in agreement with the diagnostic and treatment plans. This note was partially generated using Seeder voice recognition system, and there may be some incorrect words, spellings, and punctuation that were not noted in checking the note before saving. documented in this encounter [facility] 09-07-2022 Miscellaneous Notes Daughter calls and phone number given to schedule consult to geriatrics. Marion Selby RN Please give daughter Jossie this number to schedule an appointment for patient for consult to geriatrics when she returns call: [phone]. Marino Selby RN Daughter (Jossie) requests you call her to schedule the consult to geriatric appointment at [phone]. Thanks, Marion Selby RN documented in this encounter [facility] 09-07-2022 Miscellaneous Notes Pt's daughter called in [...] elevations and asking for call back at [phone]. Marion Selby RN Please notify patient/family that his lab results look OK/stable. I would suggest getting a Geriatrics consult for further evaluation of his memory issues. Herminio Gr MD documented in this encounter [facility] 09-02-2022 Note HNO ID: [id number] Author: Herminio Gr MD Service: ? Author [...] feel he has trouble swallowing food. Uses [employer] william to watch where he goes when [...] SURGICAL HISTORY OF 02/22/2016 Stent placement, 2. [facility] - Dr. King Family History FAMILY [...] ADVANCE DIRECTIVE DISCUSS (more content not included)... [facility] 09-02-2022 History of Presen t illness Narrative [...] feel he has trouble swallowing food. Uses [employer] william to watch where he goes when [...] SURGICAL HISTORY OF 02/22/2016 Stent placement, 2. [facility] - Dr. King Family History FAMILY [...] Past Histories independently gathered by the clinical family readiness support assistant and the remaining scribed note accurately describes [...] Tish Copeland Ma documented in this encounter [facility] 07-22-2022 Note HNO ID: [id number] Author: Herminio Gr MD Service: ? Author [...] His kids check on him daily, use [employer]. HM - Denies feeling down, depressed or [...] SURGICAL HISTORY OF 02/22/2016 Stent placement, 2. [facility] - Dr. King Family History FAMILY [...] due on 03/20/2022 (more content not included)... [facility] 07-22-2022 History of Presen t illness Narrative [...] His kids check on him daily, use [employer]. HM - Denies feeling down, depressed or [...] SURGICAL HISTORY OF 02/22/2016 Stent placement, 2. [facility] - Dr. King Family History FAMILY [...] 06/25/2022 3.41 Monocytes % 06/25/2022 3.3 Abs Bartholomew 06/25/2022 0.14 Eosinophils % 06/25/2022 4.0 Abs [...] - LIPID PANEL BASIC 3. Atherosclerosis of [place] coronary artery of [place] heart without angina pectoris - ICD9: 414.01, [...] Past Histories independently gathered by the clinical family readiness support assistant and the remaining scribed note accurately describes [...] Tish Copeland Ma documented in this encounter [facility] 07-04-2022 Miscellaneous Notes The following approved medication requests have been transmitted electronically. Requested Prescriptions Pending Prescriptions Disp Refills losartan (COZAAR) 25 mg tablet 90 tablet 3 Sig: Take 1 tablet by mouth once daily. Michael Cunha APRN.CNP documented in this encounter [facility] 07-01-2022 Miscellaneous Notes Patient was notified Jossie Malik Ma Please notify patient that his lab results show that his thyroid level is off a little, so I would like to increase his thyroid medicine to 88 mcg daily. Will discuss further at his appt in July. Herminio Gr MD documented in this encounter [facility] 05-25-2022 Note HNO ID: [id number] Author: Maura Francisco RT(R) Service: Nuclear Medicine [...] RT Marek(R) May 25, 2022 11:25 AM [facility] 05-25-2022 Note HNO ID: [id number] Author: Lexi Blandon Service: ? Author Type: [...] SURGICAL HISTORY OF 02/22/2016 Stent placement, 2. [facility] - Dr. King FAMILY HISTORY Problem [...] strength dorsiflexion, plantarflexio (more content not included)... [facility] 05-25-2022 Note HNO ID: [id number] Author: Ana Lee LPN Service: ? Author Type: LICENSED NURSE Type: Progress Notes Filed: 05/25/2022 12:33 PM Note Text: AMB ROOMING INTAKE FLOWSHEET DATA Pain Pain Level: 10 Pain Location: Toe Description: Sharp Duration Amount of Time: 3 Duration Units: Months Frequency: Continuous Intervention/Comfort measure: Reposition, Relaxation Patient presents with: Right Foot - New, Pain, Ulcer Ana Lee LPN [facility] 05-25-2022 History of Presen t illness Narrative [...] SURGICAL HISTORY OF 02/22/2016 Stent placement, 2. [facility] - Dr. King FAMILY HISTORY Problem [...] Blandon DPM Podiatry [address] [facility] [address] Dept: [phone] Dept AMB ROOMING INTAKE FLOWSHEET DATA Pain Pain Level: 10 Pain Location: Toe Description: Sharp Duration Amount of Time: 3 Duration Units: Months Frequency: Continuous Intervention/Comfort measure: Reposition, Relaxation Patient presents with: Right Foot - New, Pain, Ulcer Ana Lee LPN [facility] [facility] 05-23-2022 Miscellaneous Notes Pt notified. Reminder mailed [...] July. Kaylyn CERDA documented in this encounter [facility] 05-13-2022 Note HNO ID: [id number] Author: Mary Tellez APRN.[facility] Service: ? Author Type: Nurse Practitioner Type: [...] history is provided by the patient. No foreign languages department chair was used. ROS Objective Physical Exam Constitutional: [...] SURGICAL HISTORY OF 02/22/2016 Stent placement, 2. [facility] - Dr. King ALLERGIES Baby Aspirin [...] okay with this care plan. Mary Tellez APRN.[facility] 05-13-2022 History of Presen t illness Narrative [...] history is provided by the patient. No foreign languages department chair was used. ROS Objective Physical Exam Constitutional: [...] SURGICAL HISTORY OF 02/22/2016 Stent placement, 2. [facility] - Dr. King ALLERGIES Baby Aspirin [...] Mary Tellez APRN.[facility] documented in this encounter [facility] 02-07-2022 Miscellaneous Notes Notified via SNAPCARD to follow up in 6 months, sometime in July. Belem Fierro Ma OK to follow up in 6 months Herminio Gr MD Office received call from Tong Hooker, Velma Pereira regarding pt. She was attempting to get him rescheduled due to cancelling his 1 month/routine f/u. Pt daughter and pt stating they did not need to keep this appt as the labs were fine that he recently completed. Please review chart. Pt would be due for his 6 mo f/u in January. Advise. Update daughter via SNAPCARD. Wrote message in on 01/25/22 to PCP. Tish Copeland Ma documented in this encounter [facility] 10-04-2021 Miscellaneous Notes The following approved medication requests have been transmitted electronically. Signed Prescriptions Disp Refills carvedilol (COREG) 3.125 mg tablet 180 tablet 3 Sig: Take 1 tablet by mouth twice daily with meals. EMMY: No Authorizing Provider: HERMINIO GR Ma OK to refill as ordered Herminio Gr MD Last office visit: 08/10/21 F/u scheduled: 02/11/22 Belem Fierro Ma documented in this encounter [facility] 10-04-2021 Miscellaneous Notes The following approved medication [...] Belem Fierro Ma documented in this encounter [facility] 10-04-2021 Miscellaneous Notes Done in other phone note Herminio Gr MD Last office visit: 08/10/21 F/u scheduled: 02/11/22 Belem Fierro Ma documented in this encounter [facility] 08-23-2021 History of Presen t illness Narrative [...] SURGICAL HISTORY OF 02/22/2016 Stent placement, 2. [facility] - Dr. King ALLERGIES Baby Aspirin [...] Sinus: Maxillary sinus tenderness present. Mouth/Throat: Lips: [place]. Mouth: Mucous membranes are moist. Pharynx: Oropharynx [...] of care. This note was generated using Seeder software. It may contain errors in wording, punctuation, or spelling. Deandre Jackson APRN.[facility] documented in this encounter [facility] 08-10-2021 Miscellaneous Notes See SNAPCARD message form Jossie, Pt daughter and POA documented in this encounter [facility] 08-10-2021 History of Presen t illness Narrative Chief Complaint Patient presents with: 6 Month Exam HPI John Contreras is a 85 year old male who presents here today for a 6 month follow up. Pt here alone. Daughter Jossie tries to come to [facility]. He does have an advanced directive. Has [...] medications. Follows with Dr. Peres, Urologist at [facility]. Is taking Proscar 5 mg daily. [...] SURGICAL HISTORY OF 02/22/2016 Stent placement, 2. [facility] - Dr. King Family History FAMILY [...] Lymph% 08/03/2021 64.9 Abs Lymph 08/03/2021 2.86 Bartholomew% 08/03/2021 5.7 Abs Bartholomew 08/03/2021 0.25 Eosin% 08/03/2021 5.9 Abs Eosin [...] ALBUMIN/CREAT RATIO RND UR 2. Atherosclerosis of [place] coronary artery of [place] heart without angina pectoris - ICD9: 414.01, [...] Past Histories independently gathered by the clinical family readiness support assistant and the remaining scribed note accurately describes [...] Belem Fierro Ma documented in this encounter [facility] 07-16-2021 History of Presen t illness Narrative This note was created using [employer]. Subjective John Contreras is a 85 year [...] SURGICAL HISTORY OF 02/22/2016 Stent placement, 2. [facility] - Dr. King FAMILY HISTORY Problem [...] Griselda Zepeda PA-C documented in this encounter [facility] 07-11-2021 History of Presen t illness Narrative Images from the original note were not included. This note was created using [employer]. Subjective John Contreras is a 85 year old male. HPI Patient presents with a chief complaint of a bug bite. He thinks he got bit on the left forearm yesterday. It is itchy. Not painful. No fever or chills. He denies taking anything [id number] orally for it. He did put Polysporin [...] SURGICAL HISTORY OF 02/22/2016 Stent placement, 2. [facility] - Dr. King FAMILY HISTORY Problem [...] Griselda Zepeda PA-C documented in this encounter [facility] 07-11-2021 Instructions Griselda Zepeda PA-C - 07/11/2021 [...] symptoms may fill. documented in this encounter [facility] 06-24-2021 Miscellaneous Notes The following approved medication [...] daily with meals. EMMY: No Michael Cunha APRN.[employer] 03/09/21 NOV 08/10/21 Bety Mercedes Ma documented in this encounter [facility]* Diagnosis Bug bite, initial encounter- Primary [facility]* Diagnosis Fall, initial encounter- Primary [facility]* Diagnosis Controlled type 2 diabetes mellitus without complication, without long-term current use of insulin (HCC)- Primary Atherosclerosis of [place] coronary artery of [place] heart without angina pectoris Thrombocytopenia (HCC) Thrombocytopenia, unspecified Hypothyroidism, acquired Unspecified hypothyroidism CLL (chronic lymphocytic leukemia) (HCC) Chronic lymphoid leukemia, without mention of having achieved remission Benign prostatic hyperplasia without lower urinary tract symptoms Memory changes Memory loss [facility]* Diagnosis Cough- Primary Sinobronchitis Unspecified sinusitis (chronic) [facility]* Diagnosis Hypothyroidism, unspecified type documented in this encounter [facility] note* Diagnosis Hypothyroidism, unspecified type Atherosclerosis of [place] coronary artery of [place] heart without angina pectoris documented in this encounter [facility] note* Diagnosis Pain of toe of left foot- Primary Pain in limb documented in this encounter [facility] note* Diagnosis Controlled type 2 diabetes mellitus without complication, without long-term current use of insulin (HCC)- Primary CLL (chronic lymphocytic leukemia) (HCC) Chronic lymphoid leukemia, without mention of having achieved remission Hypothyroidism, unspecified type Thrombocytopenia (HCC) Thrombocytopenia, unspecified Hypertension, essential Unspecified essential hypertension Atherosclerosis of [place] coronary artery of [place] heart without angina pectoris documented in this encounter [facility] note* Diagnosis Hammertoe of right foot- Primary Callus of toe [facility]* Diagnosis Type 2 diabetes mellitus with chronic kidney disease, without long-term current use of insulin, unspecified CKD stage (HCC)- Primary Hypothyroidism, unspecified type Hypertension, essential Unspecified essential hypertension Atherosclerosis of [place] coronary artery of [place] heart without angina pectoris Chronic kidney disease, stage 3a (HCC) CLL (chronic lymphocytic leukemia) (HCC) Chronic lymphoid leukemia, without mention of having achieved remission Thrombocytopenia (HCC) Thrombocytopenia, unspecified Dementia without behavioral disturbance (HCC) Dementia, unspecified, without behavioral disturbance Benign prostatic hyperplasia without lower urinary tract symptoms [facility] Diagnosis Forgetfulness- Primary Other general symptoms Weight loss Loss of weight Memory loss Chronic kidney disease, stage 3a (HCC) Hypothyroidism, acquired Unspecified hypothyroidism Type 2 diabetes mellitus with chronic kidney disease, without long-term current use of insulin, unspecified CKD stage (HCC) [facility] Diagnosis Forgetfulness- Primary Other general symptoms Memory loss [facility]* Diagnosis Mild dementia with anxiety, 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[facility])- Primary JESSEE (generalized anxiety disorder) Generalized anxiety disorder [facility] Diagnosis Atherosclerosis of [place] coronary artery of [place] heart without angina pectoris [facility] Diagnosis Mild dementia with anxiety, 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[facility])- Primary JES[place] (generalized anxiety disorder) Generalized anxiety disorder Situational anxiety Other anxiety states [facility]* Diagnosis Hospital discharge follow-up- Primary Other follow-up examination Acute cystitis with hematuria Acute cystitis Acute constipation Unspecified constipation Other specified hypotension [facility] Diagnosis Abdominal pain, unspecified abdominal location- Primary [facility] Diagnosis Mild dementia with anxiety, 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[facility]) [facility]* Diagnosis Hospital discharge follow-up- Primary Other follow-up examination Hypotensive episode Hypotension, unspecified Urinary retention Retention of urine, unspecified Constipation, unspecified constipation type Acute on chronic anemia Gastroesophageal reflux disease without esophagitis Esophageal reflux Debility Debility, unspecified Hypothyroidism, acquired Unspecified hypothyroidism Controlled type 2 diabetes mellitus without complication, without long-term current use of insulin (HCC) Atherosclerosis of [place] coronary artery of [place] heart without angina pectoris [facility] Diagnosis Secondary infection of skin- Primary Other specified local infections of skin and subcutaneous tissue [facility]* Diagnosis CLL (chronic lymphocytic leukemia) (HCC)- Primary Chronic lymphoid leukemia, without mention of having achieved remission Small lymphocytic lymphoma (HCC) Anemia, unspecified type Thrombocytopenia (HCC) Thrombocytopenia, unspecified documented in this encounter [facility] for referral (narrative)* Diagnostic Procedure Only (Urgent) - Closed Specialty Diagnoses / Procedures Referred By Contac t Referred To Contact XR IMAGING Diagnoses Fall, initial encounter Procedures XR HIP GENERAL 3V PELV/AP/LAT RIGHT RADEX HIP UNILATERAL WITH PELVIS 2-3 VIEWS Griselda Zepeda PA-C [address] [place] [address] Xr Imaging Referral ID Status Reason Start Date Expiration Date V isits Requested Visits Authorized [id number] Closed Auto-Generate d Referral 07/16/2021 08/15/2022 1 1 [facility] for referral (narrative)* Diagnostic Procedure Only (Routine) - Closed Specialty Diagnoses / Procedures Referred By Contac t Referred To Contact XR IMAGING Diagnoses Hammertoe of right foot Procedures XR FOOT GENERAL 3V AP/LAT/OBL RIGHT RADEX FOOT COMPLETE MINIMUM 3 VIEWS Lexi Blandon [address] [place] [address] Xr Imaging Referral ID Status Reason Start Date Expiration Date V isits Requested Visits Authorized [id number] Closed Auto-Generate d Referral 05/25/2022 06/24/2023 1 1 [facility] for referral (narrative)* Diagnostic Procedure Only (Routine) - Authorized Specialty Diagnoses / Procedures Referred By Contac t Referred To Contact US IMAGING Diagnoses CLL (chronic lymphocytic leukemia) (HCC) Small lymphocytic lymphoma (HCC) Anemia, unspecified type Thrombocytopenia (HCC) Procedures US ABD RIGHT UPPER QUADRANT US ABDOMINAL REAL TIME W/IMAGE LIMITED Chapin Dawn DO [address] [place] [address] [place] [address] Referral ID Status Reason Start Date Expiration Date Visits Requested Visits Authorized [id number] Authorized Auto-Generat ed Referral 04/01/2024 1 1 [facility] Summary Purpose Family History No Family History Records FoundNo Family History Records FoundNo Family History Records Found Advance Directives No Advanced Directives Records FoundDocuments on File Type Date Recorded Patient Campaign Director Expl anation Advance Directive(s) Advance Directive(s) 04/21/2020 9:19 AM Documents on File Type Date Recorded Patient Campaign Director Expl anation Advance Directive(s) Advance Directive(s) 04/21/2020 9:19 AM Documents on File Type Date Recorded Patient Campaign Director Expl anation Advance Directive(s) 04/21/2020 9:19 AM Documents on File Type Date Recorded Patient Campaign Director Expl anation Advance Directive(s) 04/21/2020 9:19 AM Reason for Referral Specialty Diagnoses / Procedures Referred By Contac t Referred To Contact Gerontology Diagnoses Forgetfulness Memory loss Procedures CONSULT TO GERIATRICS OFFICE/OUTPATIENT [facility] 60-74 MINUTES Herminio Gr MD [address] [place] [address] Referral ID Status Reason Start Date Expiration Date Visits Requested Visits Authorized [id number] Pending Review PCP Requested Referral 09/05/2022 09/05/2023 1 1 Specialty Diagnoses / Procedures Referred By Contac t Referred To Contact MR IMAGING Diagnoses Mild dementia with anxiety, 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HCC) Procedures MRI BRAIN WO IVCON MRI BRAIN BRAIN STEM W/O CONTRAST MATERIAL Juju Tim DO [address] [place] [id number] [facility] Referral ID Status Reason Start Date Expiration Date Visits Requested Visits Authorized [id number] Pending Review Auto-Generat ed Referral 10/14/2022 11/13/2023 1 1 Specialty Diagnoses / Procedures Referred By Contac t Referred To Contact MR IMAGING Diagnoses Mild dementia with anxiety, 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HCC) Procedures MRI BRAIN WO IVCON MRI BRAIN BRAIN STEM W/O CONTRAST MATERIAL Juju Tim DO [address] [place] [address] [place] [id number] Referral ID Status Reason Start Date Expiration Date V isits Requested Visits Authorized [id number] Closed Auto-Generate d Referral 11/08/2022 03/19/2023 1 1 Additional Source Comments (unrecognized sect ion and content) No Status Records FoundNo Status Records FoundNo Status Records Found INFORMATION SOURCE (unrecogn ized section and content) DATE CREATED AUTHOR AUTHOR'S ORGANTAMMY ATION 12/23/2022 [facility] DATE CREATED AUTHOR AUTHOR'S ORGANIZ ATION 04/07/2023 [facility] Source Comments (unrecognize d section and content) In the event this informatio n is protected by the Federal Confidentiality of Alcohol and Drug Abuse Patient Records regulations: The Federal rules restrict any use of the information to criminally investigate or prosecute any alcohol or drug abuse patient.[facility] the event this information is protected by the Federal Confidentiality of Alcohol and Drug Abuse Patient Records regulations: The Federal rules restrict any use of the information to criminally investigate or prosecute any alcohol or drug abuse patient.[facility] the event this information is protected by the Federal Confidentiality of Alcohol and Drug Abuse Patient Records regulations: The Federal rules restrict any use of the information to criminally investigate or prosecute any alcohol or drug abuse patient.[facility] the event this information is protected by the Federal Confidentiality of Alcohol and Drug Abuse Patient Records regulations: The Federal rules restrict any use of the information to criminally investigate or prosecute any alcohol or drug abuse patient.[facility] the event this information is protected by the Federal Confidentiality of Alcohol and Drug Abuse Patient Records regulations: The Federal rules restrict any use of the information to criminally investigate or prosecute any alcohol or drug abuse patient.[facility] the event this information is protected by the Federal Confidentiality of Alcohol and Drug Abuse Patient Records regulations: The Federal rules restrict any use of the information to criminally investigate or prosecute any alcohol or drug abuse patient.[facility] the event this information is protected by the Federal Confidentiality of Alcohol and Drug Abuse Patient Records regulations: The Federal rules restrict any use of the information to criminally investigate or prosecute any alcohol or drug abuse patient.[facility] the event this information is protected by the Federal Confidentiality of Alcohol and Drug Abuse Patient Records regulations: The Federal rules restrict any use of the information to criminally investigate or prosecute any alcohol or drug abuse patient.[facility] Center[facility] the event this information is protected by the Federal Confidentiality of Alcohol and Drug Abuse Patient Records regulations: The Federal rules restrict any use of the information to criminally investigate or prosecute any alcohol or drug abuse patient.[facility] Center[facility] the event this information is protected by the Federal Confidentiality of Alcohol and Drug Abuse Patient Records regulations: The Federal rules restrict any use of the information to criminally investigate or prosecute any alcohol or drug abuse patient.[facility] the event this information is protected by the Federal Confidentiality of Alcohol and Drug Abuse Patient Records regulations: The Federal rules restrict any use of the information to criminally investigate or prosecute any alcohol or drug abuse patient.[facility] Center[facility] the event this information is protected by the Federal Confidentiality of Alcohol and Drug Abuse Patient Records regulations: The Federal rules restrict any use of the information to criminally investigate or prosecute any alcohol or drug abuse patient.[facility] Center[facility] the event this information is protected by the Federal Confidentiality of Alcohol and Drug Abuse Patient Records regulations: The Federal rules restrict any use of the information to criminally investigate or prosecute any alcohol or drug abuse patient.[facility] Center[facility] the event this information is protected by the Federal Confidentiality of Alcohol and Drug Abuse Patient Records regulations: The Federal rules restrict any use of the information to criminally investigate or prosecute any alcohol or drug abuse patient.[facility] Center[facility] the event this information is protected by the Federal Confidentiality of Alcohol and Drug Abuse Patient Records regulations: The Federal rules restrict any use of the information to criminally investigate or prosecute any alcohol or drug abuse patient.[facility] Center[facility] the event this information is protected by the Federal Confidentiality of Alcohol and Drug Abuse Patient Records regulations: The Federal rules restrict any use of the information to criminally investigate or prosecute any alcohol or drug abuse patient.[facility] Center[facility] the event this information is protected by the Federal Confidentiality of Alcohol and Drug Abuse Patient Records regulations: The Federal rules restrict any use of the information to criminally investigate or prosecute any alcohol or drug abuse patient.[facility] Center[facility] the event this information is protected by the Federal Confidentiality of Alcohol and Drug Abuse Patient Records regulations: The Federal rules restrict any use of the information to criminally investigate or prosecute any alcohol or drug abuse patient.[facility] Center[facility] the event this information is protected by the Federal Confidentiality of Alcohol and Drug Abuse Patient Records regulations: The Federal rules restrict any use of the information to criminally investigate or prosecute any alcohol or drug abuse patient.[facility] CenterIn the event this information is protected by the Federal Confidentiality of Alcohol and Drug Abuse Patient Records regulations: The Federal rules restrict any use of the information to criminally investigate or prosecute any alcohol or drug abuse patient.[facility] CenterIn the event this information is protected by the Federal Confidentiality of Alcohol and Drug Abuse Patient Records regulations: The Federal rules restrict any use of the information to criminally investigate or prosecute any alcohol or drug abuse patient.[facility] CenterIn the event this information is protected by the Federal Confidentiality of Alcohol and Drug Abuse Patient Records regulations: The Federal rules restrict any use of the information to criminally investigate or prosecute any alcohol or drug abuse patient.[facility] Center[facility] the event this information is protected by the Federal Confidentiality of Alcohol and Drug Abuse Patient Records regulations: The Federal rules restrict any use of the information to criminally investigate or prosecute any alcohol or drug abuse patient.[facility] Center[facility] the event this information is protected by the Federal Confidentiality of Alcohol and Drug Abuse Patient Records regulations: The Federal rules restrict any use of the information to criminally investigate or prosecute any alcohol or drug abuse patient.[facility] CenterIn the event this information is protected by the Federal Confidentiality of Alcohol and Drug Abuse Patient Records regulations: The Federal rules restrict any use of the information to criminally investigate or prosecute any alcohol or drug abuse patient.[facility] Center[facility] the event this information is protected by the Federal Confidentiality of Alcohol and Drug Abuse Patient Records regulations: The Federal rules restrict any use of the information to criminally investigate or prosecute any alcohol or drug abuse patient.[facility] CenterIn the event this information is protected by the Federal Confidentiality of Alcohol and Drug Abuse Patient Records regulations: The Federal rules restrict any use of the information to criminally investigate or prosecute any alcohol or drug abuse patient.[facility] Center[facility] the event this information is protected by the Federal Confidentiality of Alcohol and Drug Abuse Patient Records regulations: The Federal rules restrict any use of the information to criminally investigate or prosecute any alcohol or drug abuse patient.[facility] CenterIn the event this information is protected by the Federal Confidentiality of Alcohol and Drug Abuse Patient Records regulations: The Federal rules restrict any use of the information to criminally investigate or prosecute any alcohol or drug abuse patient.[facility] CenterIn the event this information is protected by the Federal Confidentiality of Alcohol and Drug Abuse Patient Records regulations: The Federal rules restrict any use of the information to criminally investigate or prosecute any alcohol or drug abuse patient.[facility] CenterIn the event this information is protected by the Federal Confidentiality of Alcohol and Drug Abuse Patient Records regulations: The Federal rules restrict any use of the information to criminally investigate or prosecute any alcohol or drug abuse patient.[facility] CenterIn the event this information is protected by the Federal Confidentiality of Alcohol and Drug Abuse Patient Records regulations: The Federal rules restrict any use of the information to criminally investigate or prosecute any alcohol or drug abuse patient.[facility] CenterIn the event this information is protected by the Federal Confidentiality of Alcohol and Drug Abuse Patient Records regulations: The Federal rules restrict any use of the information to criminally investigate or prosecute any alcohol or drug abuse patient.[facility] CenterIn the event this information is protected by the Federal Confidentiality of Alcohol and Drug Abuse Patient Records regulations: The Federal rules restrict any use of the information to criminally investigate or prosecute any alcohol or drug abuse patient.[facility] CenterIn the event this information is protected by the Federal Confidentiality of Alcohol and Drug Abuse Patient Records regulations: The Federal rules restrict any use of the information to criminally investigate or prosecute any alcohol or drug abuse patient.[facility] CenterIn the event this information is protected by the Federal Confidentiality of Alcohol and Drug Abuse Patient Records regulations: The Federal rules restrict any use of the information to criminally investigate or prosecute any alcohol or drug abuse patient.[facility] CenterIn the event this information is protected by the Federal Confidentiality of Alcohol and Drug Abuse Patient Records regulations: The Federal rules restrict any use of the information to criminally investigate or prosecute any alcohol or drug abuse patient.[facility] CenterIn the event this information is protected by the Federal Confidentiality of Alcohol and Drug Abuse Patient Records regulations: The Federal rules restrict any use of the information to criminally investigate or prosecute any alcohol or drug abuse patient.[facility] CenterIn the event this information is protected by the Federal Confidentiality of Alcohol and Drug Abuse Patient Records regulations: The Federal rules restrict any use of the information to criminally investigate or prosecute any alcohol or drug abuse patient.[facility] CenterIn the event this information is protected by the Federal Confidentiality of Alcohol and Drug Abuse Patient Records regulations: The Federal rules restrict any use of the information to criminally investigate or prosecute any alcohol or drug abuse patient.[facility] Reason for Visit (unrecogniz ed section and [...] Geriatrics Depression f/u Reason Comments Follow Up [facility] follow up Reason Comments Patient Question [...] W/O CONTRAST MATERIAL Juju Tim DO [address] [place] [address] [place] [address] Referral ID Status Reason Start Date Expiration Date V isits Requested Visits Authorized [id number] Closed Auto-Generate d Referral 11/08/2022 03/19/2023 1 1 Reason Comments [facility] Nursing Plan of Care Reason Comments Hospital Follow Up Reason Comments Wound Check had precancerous spo t removed on now spot is red and black in color Reason Comments Established Patient Care Teams (unrecognized sec tion and content) Studio Technician Relationship Specialty Start Date End Date Herminio Gr MD [address] [place] [address] PCP - General Family Practice 10/26/10 Studio Technician Relationship Specialty Start Date End Date Herminio Gr MD [address] [place] [address] PCP - General Family Practice 10/26/10 Studio Technician Relationship Specialty Start Date End Date Herminio Gr MD [address] [place] [address] PCP - General Family Practice 10/26/10 Studio Technician Relationship Specialty Start Date End Date Herminio Gr MD [address] [place] [address] PCP - General Family Practice 10/26/10 Studio Technician Relationship Specialty Start Date End Date Herminio Gr MD [address] [place] [address] PCP - General Family Practice 10/26/10 Studio Technician Relationship Specialty Start Date End Date Herminio Gr MD [address] [place] [address] PCP - General Family Practice 10/26/10 Studio Technician Relationship Specialty Start Date End Date Herminio Gr MD [address] [facility] [place] [address] PCP - General Family Practice 10/26/10 Studio Technician Relationship Specialty Start Date End Date Herminio Gr MD [address] [facility] [place] [address] PCP - General Family Practice 10/26/10 Studio Technician Relationship Specialty Start Date End Date Herminio Gr MD [address] [facility] [place] [address] PCP - General Family Medicine 10/26/10 Studio Technician Relationship Specialty Start Date End Date Herminio Gr MD [address] [facility] [place] [address] PCP - General Family Medicine 10/26/10 Studio Technician Relationship Specialty Start Date End Date Herminio Gr MD [address] [facility] [place] [address] PCP - General Family Medicine 10/26/10 Studio Technician Relationship Specialty Start Date End Date Herminio Gr MD [address] [facility] [place] [address] PCP - General Family Medicine 10/26/10 Studio Technician Relationship Specialty Start Date End Date Herminio Gr MD [address] [facility] [place] [address] PCP - General Family Medicine 10/26/10 Studio Technician Relationship Specialty Start Date End Date Herminio Gr MD [address] [facility] [place] [address] PCP - General Family Medicine 10/26/10 Studio Technician Relationship Specialty Start Date End Date Herminio Gr MD [address] [facility] [place] [address] PCP - General Family Medicine 10/26/10 Studio Technician Relationship Specialty Start Date End Date Herminio Gr MD [address] [place] [address] PCP - General Family Medicine 10/26/10 Studio Technician Relationship Specialty Start Date End Date Herminio Gr MD [address] [place] [address] PCP - General Family Medicine 10/26/10 Studio Technician Relationship Specialty Start Date End Date Herminio Gr MD [address] [place] [address] PCP - General Family Medicine 10/26/10 Studio Technician Relationship Specialty Start Date End Date Herminio Gr MD [address] [place] [address] PCP - General Family Medicine 10/26/10 Studio Technician Relationship Specialty Start Date End Date Herminio Gr MD [address] [place] [address] PCP - General Family Medicine 10/26/10 Studio Technician Relationship Specialty Start Date End Date Herminio Gr MD [address] [place] [address] PCP - General Family Medicine 10/26/10 Studio Technician Relationship Specialty Start Date End Date Herminio Gr MD [address] [place] [address] PCP - General Family Medicine 10/26/10 Studio Technician Relationship Specialty Start Date End Date Herminio Gr MD [address] [facility] [place] [address] PCP - General Family Medicine 10/26/10 Studio Technician Relationship Specialty Start Date End Date Herminio Gr MD [address] [facility] [place] [address] PCP - General Family Medicine 10/26/10 Studio Technician Relationship Specialty Start Date End Date Herminio Gr MD [address] [facility] [place] [address] PCP - General Family Medicine 10/26/10 Studio Technician Relationship Specialty Start Date End Date Herminio Gr MD [address] [facility] [place] [address] PCP - General Family Medicine 10/26/10 Studio Technician Relationship Specialty Start Date End Date Herminio Gr MD [address] [facility] [place] [address] PCP - General Family Medicine 10/26/10 Studio Technician Relationship Specialty Start Date End Date Herminio Gr MD [address] [facility] [place] [address] PCP - General Family Medicine 10/26/10 Studio Technician Relationship Specialty Start Date End Date Herminio Gr MD [address] [facility] [place] [address] PCP - General Family Medicine 10/26/10 Studio Technician Relationship Specialty Start Date End Date Herminio Gr MD [address] [facility] [place] [address] PCP - General Family Medicine 8/9/11 Studio Technician Relationship Specialty Start Date End Date Herminio Gr MD [address] [place] [address] PCP - General Family Medicine 10/26/10 FOR [...] BE BASED ON THE PRIMARY CLINICAL RECORDS. [employer] provides no warranty or guarantee of the accuracy or completeness of information in this document.
[2023-04-12] MEDS: 0.9% Normal Saline (1000mL) 1,000 ML 999 ML IV (17:58)
--- NOTE | 2023-04-12 18:31 | ED.RN ---
1745: Nurse entered patient room to hang second bag of fluid. BP was 87/54. Family stated that they turned off the alarm because it was alarming. I educated the family not to turn the alarm off because it needs to alert staff when VS are in a critical range. Family asked what was wrong and I told them that his BP was low.
--- NOTE | 2023-04-12 18:34 | HP.PCM.HOS_ITS ---
HPI - General General Date of Admission: 04/12/23 Date of Service: 04/12/23 Chief Complaint: Fevers and confusion HPI Narrative ERMELINDA DIEGO, is a 87 M who presented to [facility] ED on 04/08/2023 from home with fevers and confusion. Patient seen at bedside in the ED, son present. Patient was sitting up in bed and making appropriate eye contact, but he was not able to answer most questions appropriately. Patient did state that he felt fatigued but otherwise denied any pain or discomfort. Denies any pain or burning with urination. Further history obtained from patient's son. Patient lives with son, and son is patient's primary environmental program manager. Son states that patient does have history of mild to moderate dementia and requires assistance with several ADLs. Patient is also quite hard of hearing and is unable to have a conversation without his hearing aids. Son states the patient was doing fairly well the past few days, but this morning the patient was very confused and had a fever when the son checked with a thermometer. Son states that when he got the patient up to walk, the patient was not able to do much on his own. Patient also had multiple episodes of urinary continence this morning. Son states that this is very similar to a previous episode that he had last year when he was diagnosed with UTI. Son does state that patient has not been eating or drinking much over the past few days. No other acute concerns this time. [facility] Medical History Acute on chronic anemia Aneurysm of infrarenal abdominal aorta Anxiety Arthritis Atherosclerotic heart disease of [place] coronary artery without angina pectoris Cancer Cardiology follow-up encounter Dementia Depression Essential hypertension Former smoker Gastric reflux Hard of hearing High cholesterol History of echocardiogram History of lateral wall myocardial infarction Left ventricular systolic dysfunction Lymphoma Memory deficit Pneumonia due to COVID-19 virus Pure hypercholesterolemia Stented coronary artery (~02/22/16) Thrombocytopenia Thyroid disease Type 2 diabetes mellitus Type 2 diabetes mellitus with hyperglycemia Urinary retention Wears glasses Wears hearing aid Wears partial dentures Home Medications atorvastatin 40 mg tablet [address] Gr manages cholesterol #90 tabs 05/24/18 [Rx Last Taken 01/03/23] carvedilol 3.125 mg tablet 3.125 mg PO BID bp 01/29/20 [History Last Taken 01/04/23] dutasteride 0.5 mg capsule 0.5 mg PO DAILY prostate 12/08/22 [History Last Taken Unknown] levothyroxine 88 mcg tablet 88 mcg PO DAILY thyroid 12/26/22 [History Last Taken 12/30/22] acetaminophen 500 mg tablet 1,000 mg (2 x 500 mg) PO Q6H PRN PRN Pain Score 1-10 #0 tabs 01/26/23 [Rx Last Taken Unknown] aspirin 81 mg chewable tablet 81 mg PO BREAKFAST #0 tabs 01/26/23 [Rx Last Taken Unknown] pantoprazole 40 mg tablet,delayed release 40 mg PO BID 30 days #60 tabs 01/26/23 [Rx Last Taken Unknown] polyethylene glycol 3350 17 gram oral powder packet 17 g PO DAILY PRN bowels 04/12/23 [History Last Taken Unknown] Allergy/AdvReac Type Severity Reaction Status Date / Time Penicillins Allergy Hives Verified 04/12/23 12:32 tree and shrub pollen Allergy Other Verified 04/12/23 12:32 lisinopril AdvReac Mild cough Verified 04/12/23 12:32 Family History Father , age 39 from [place] CAD (coronary artery disease) Myocardial infarction Sudden cardiac Mother Diabetes Surgical History History of appendectomy History of left heart catheterization Hx of bilateral cataract extraction Hx of cystoscopy Hx of tonsillectomy Presence of coronary angioplasty implant and graft (~02/22/16) S/P inguinal hernia repair Social History household members: none Smoking Status: Former smoker how long ago did patient quit smokin years ago alcohol intake: current alcohol intake frequency: a few times a week Alcohol type: beer substance use type: does not use caffeine: Yes Type: coffee Number of servings: 2 ROS Review of Systems ROS Unobtainable: due to mental condition Vital Signs Vital Signs Vital Signs: 04/12/23 12:34 04/12/23 14:48 04/12/23 15:27 Temperature 98.3 F 101.5 F H Temperature Source Oral Oral Pulse Rate 79 Respiratory Rate 22 H Blood Pressure 128/73 H 123/86 H Blood Pressure Mean 91 98 Pulse Ox 96 97 Oxygen Delivery Method Room Air Room Air 04/12/23 16:46 04/12/23 17:00 04/12/23 17:59 Temperature 98.5 F 98.3 F Temperature Source Temporal Temporal Pulse Rate 68 73 69 Respiratory Rate 18 16 20 H Blood Pressure 99/67 111/66 87/54 L Blood Pressure Mean 77 81 65 Pulse Ox 99 Oxygen Delivery Method Weight Weight: 78 kg Body Mass Index (BMI) 24.6 Physical Exam Const alert, no apparent distress and average body habitus Constitutional Narrative: Elderly male, laying comfortably in bed, making appropriate eye contact but not answering all questions appropriately, no acute distress. General Appearance: cooperative and comfortable HEENT normocephalic, head/scalp atraumatic, hearing grossly normal bilaterally and nasal mucous membranes and turbinates normal Eyes PERRL, EOMs intact bilaterally and conjunctivae normal Neck full ROM, no lymphadenopathy and supple Lymph Lymphatic: no lymphadenopathy noted Chest inspection of chest normal Resp normal respiratory effort, normal air movement, no use of accessory muscles and clear to auscultation bilaterally Cardio regular rate, regular rhythm, no murmurs and peripheral pulses 2+ throughout GI normal to inspection, nondistended, normoactive bowel sounds, soft to palpation, non-tender and non-distended Back/Spine normal ROM Extremity normal to inspection and no pedal edema Skin no rashes or lesions noted Neuro moves all extremities and no focal motor deficits Sensorium / Orientation: alert Motor Exam: strength 5/5 throughout Results Lab / Micro Data 04/12/23 15:15 04/12/23 15:15 Labs: Laboratory Results - last 24 hr 04/12/23 15:15: WBC 3.7 L, RBC 3.72 L, Hgb 11.3 L, Hct 33.9 L, MCV 91.1, MCH 30.4, MCHC 33.3, RDW Std Deviation 46.4 H, RDW Coeff of [place] 14.0, Plt Count 208, MPV 8.7, Immature Gran % (Auto) 1.300 H, Neut % (Auto) 19.8 L, Lymph % (Auto) 76.5 H, [place] % (Auto) 1.3, Eos % (Auto) 0.3, Baso % (Auto) 0.8, Absolute Neuts (auto) 0.7 L, Absolute Lymphs (auto) 2.86, Nucleated RBC % 0, Differential Comment , PT 14.6, INR 1.1, APTT 26.4, Sodium 134 L, Potassium 4.1, Chloride 103, Carbon Dioxide 28.0, Anion Gap 3 L, BUN 21 H, Creatinine 1.12, Est GFR (MDRD) Af Amer 80, Est GFR (MDRD) Non-Af 66, BUN/Creatinine Ratio 18.8, Glucose 155 H, Lactic Acid 1.3, Calcium 8.9, Total Bilirubin 1.00, AST 29, ALT 23, Alkaline Phosphatase 97, Total Protein 6.7, Albumin 3.2, Globulin 3.5, Albumin/Globulin Ratio 0.9 04/12/23 16:11: Urine Color Yellow, Urine Clarity Clear, Urine pH 6.0, Ur Specific [place] 1.020, Urine Protein 30 H, Urine Glucose (UA) Normal, Urine Ketones 5 H, Urine Occult Blood 10 H, Urine Nitrite Negative, Urine Bilirubin 1 H, Urine Urobilinogen 1 H, Ur Leukocyte Esterase Negative, Urine RBC 0-5 SEEN, Urine WBC 0 SEEN, Ur Squamous Epith Cells 0 SEEN, Urine Bacteria RARE, Urine Mucus 0 SEEN Micro: Microbiology 04/12/23 16:55 Mucosa - Nose SARS-CoV-2, Influenza & RSV (PCR) - Final Imagaing Radiology Impression Chest X-Ray 04/12/23 15:45 IMPRESSION: No definite acute or significant abnormality seen. Electronically Signed: Jamal Mann MD at 16:19 EST , Assessment & Plan Assessment/Plan (1) Weakness: (2) Debility: (3) Sepsis without septic shock: PLAN: Plan Patient is an 87-year-old male who presented to [facility] ED on 04/12/2023 with fevers and confusion. 1. Sepsis without shock with unclear source Met sepsis criteria on admit with hypotension, fever to 101.5F, change in mental status. Episode similar to previous UTI per family and upon chart review, but UA fairly benign in ED. WBC count 3.7, has had mild leukopenia in the past. Chest x-ray nonacute. Lactate 1.3. S/p 30 cc/kg (2350 ml) of normal saline ordered in ED; patient completed fluid bolus on the floor, blood pressure responded well to IV fluids. ? Admit under inpatient status to PCU. Urine culture, blood cultures ordered. Will treat with vancomycin and cefepime for now (has reported penicillin allergy). Can consider abdominal imaging if no other source of infection is found. Follow-up a.m. labs. 2. Acute on chronic debility, dementia ? Known history of dementia with a degree of debility. PT/OT/case management consulted. Chronic medical conditions: ? Chronic normocytic anemia: Hemoglobin 11.3 on admit, baseline hemoglobin around 9-11. Stable. ? History of CAD with stenting, hypertension, hyperlipidemia: Continue home aspirin, statin. Holding carvedilol given hypotension as noted above, restart as able. ? BPH with LUTS: Continue home finasteride. ? Hypothyroidism: Continue home Synthroid. ? History of inguinal hernia repair complicated by postoperative ileus: Required hospitalization at [facility] from 12/30-01/04/23 for postoperative ileus after hernia repair on 12/27. Had fairly significant debility and was discharged to SNF in the TCU at that time. Was able to be discharged home from the TCU on 01/26. DVT prophylaxis: Lovenox CODE STATUS: DNR CCA, DNI Expected disposition: TBD Total clinical time spent by myself addressing the patient's medical issues, reviewing all the data, and collaborating with patient's care team: 55 minutes. Sepsis Attestation Sepsis Attestation: Agree w/Sepsis Date exam was performed: 04/12/23 Time exam was performed: 18:45 Possible Source of Sepsis: Genitourinary and Unknown Sepsis Organ Dysfunction Criteria Present: SBP < 90 mmHg or MAP < 65 mmHg and New/Unexplained change in mental status Fluid Resuscitation Fluid resuscitation indicated?: Yes Fluid Resuscitation ordered: 30 ml/kg fluid bolus ordered Amount of fluid ordered: 2,350 Sepsis Note Date exam was performed: 04/12/23 Time exam was performed: 20:00 Sepsis Attestation: Sepsis re-evaluation was performed Response to fluids: Fluid responsive hypotension Charges/Coding Visit Charges Inpatient E&M: 49539 Init Hosp L2
[2023-04-12] MEDS: Cefepime HCl 1 GM in 0.9% Normal Saline (50mL MB+) 50 ML IV (19:07)
[2023-04-12] MEDS: VIAFLEX IV (19:19)
[2023-04-12] MEDS: NORMAL SALINE IV (19:19)
--- OUTSIDE RECORDS SUMMARY | 2023-04-12 19:37 | XMS RPT_ITS | CCD ---
Author Name Unknown Address [address] [place] [address] Organization [facility] Care Team Providers Care Fire Battalion Chief Name Role Phone Vuong, Juana Unavailable Unavailable [...] 7 Intolerance [facility] Work Phone: [phone] (6 sources) Penicillins (Antibiotic) drug allergy 7 Hives [facility] Work Phone: [phone] (20 sources) Aspirin; Translations: [ASPIRIN] Drug Allergy 8 Other: See Comments [facility] (20 sources) Penicillin G; Translations: [PENICILLIN G] Drug Allergy 1 [facility] (20 sources) Tree; Translations: [TREES] Allergy to substance 4 Other: See Comments [facility] Medications Current Medications Medication Drug Class(es) Dates [...] myocardial infarction; 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] Onset: 6 [...] Unclassified (6 sources) Drug therapy finding; Translations: [watermaster (current) use of antithrombotics/antipl atelets] Onset: 7 03-29-2016 Unclassified (8 sources) Placement of stent in coronary artery ; Translations: [Presence of other cardiac implants and grafts] Onset: 6 03-25-2016 Unclassified (2 sources) Long-term drug therapy; Translations: [Other terminal press operator (current) drug therapy] Onset: 7 03-25-2016 Unclassified [...] 02-26-2013 Episodic Other aftercare (4 sources) Other fpc (current) drug therapy; Translations: [Other fpc (current) drug therapy] Onset: 03-25-2016 03-25-2016 Episodic [...] 97.9 [degF] Chapin Dawn DO Work Phone: [facility] 03-03-2023 11:31-0500 Body weight 78.93 kg Chapin Dawn DO Work Phone: [facility] 03-03-2023 11:31-0500 Diastolic blood pressure 69 mm[Hg] Chapin Dawn DO Work Phone: [facility] 03-03-2023 11:31-0500 Heart rate 62 /min Chapin Dawn DO Work Phone: [facility] 03-03-2023 11:31-0500 SaO2% (BldA) [Mass fraction] 98 % Chapin Cansecoi DO Work Phone: [facility] 03-03-2023 11:31-0500 Systolic blood pressure 114 mm[Hg] Chapin Cansecoi DO Work Phone: [facility] 02-19-2023 11:43-0500 Body temperature 98.01 [degF] Scar Elder YARD PIPE GRADER.NUCLEAR POWERPLANT MECHANIC HELPER Work Phone: [facility] 02-19-2023 11:43-0500 Body weight 77.11 kg Scar Elder YARD PIPE GRADER.NUCLEAR POWERPLANT MECHANIC HELPER Work Phone: [facility] 02-19-2023 11:43-0500 Diastolic blood pressure 72 mm[Hg] Scar Elder YARD PIPE GRADER.NUCLEAR POWERPLANT MECHANIC HELPER Work Phone: [facility] 02-19-2023 11:43-0500 Heart rate 74 /min Scar Elder YARD PIPE GRADER.NUCLEAR POWERPLANT MECHANIC HELPER Work Phone: [facility] 02-19-2023 11:43-0500 Respiratory rate 16 /min Scar Elder YARD PIPE GRADER.NUCLEAR POWERPLANT MECHANIC HELPER Work Phone: [facility] 02-19-2023 11:43-0500 SaO2% (BldA) [Mass fraction] 97 % Scar Elder YARD PIPE GRADER.NUCLEAR POWERPLANT MECHANIC HELPER Work Phone: [facility] 02-19-2023 11:43-0500 Systolic blood pressure 124 mm[Hg] Scar Elder YARD PIPE GRADER.NUCLEAR POWERPLANT MECHANIC HELPER Work Phone: [facility] 02-06-2023 14:26-0500 Body weight 78.93 kg Herminio Gr MD Work Phone: [facility] 02-06-2023 14:26-0500 Diastolic blood pressure 66 mm[Hg] Herminio Gr MD Work Phone: [facility] 02-06-2023 14:26-0500 Heart rate 68 /min Herminio Gr MD Work Phone: [facility] 02-06-2023 14:26-0500 Respiratory rate 20 /min Herminio Gr MD Work Phone: [facility] 02-06-2023 14:26-0500 Systolic blood pressure 114 mm[Hg] Herminio Gr MD Work Phone: [facility] 12-23-2022 16:35-0400 Body temperature 97.5 [degF] Deandre Pendlekingsley YARD PIPE GRADER.NUCLEAR POWERPLANT MECHANIC HELPER Work Phone: [facility] 12-23-2022 16:35-0400 Body weight 79.92 kg Deandre Pendlekingsley YARD PIPE GRADER.NUCLEAR POWERPLANT MECHANIC HELPER Work Phone: [facility] 12-23-2022 16:35-0400 Diastolic blood pressure 81 mm[Hg] Deandre Pendlebury YARD PIPE GRADER.NUCLEAR POWERPLANT MECHANIC HELPER Work Phone: [facility] 12-23-2022 16:35-0400 Heart rate 60 /min Deandre Clementlekingsley YARD PIPE GRADER.NUCLEAR POWERPLANT MECHANIC HELPER Work Phone: [facility] 12-23-2022 16:35-0400 Respiratory rate 18 /min Deandre Pendlekingsley YARD PIPE GRADER.NUCLEAR POWERPLANT MECHANIC HELPER Work Phone: [facility] 12-23-2022 16:35-0400 SaO2% (BldA) [Mass fraction] 97 % Deandre Pendlekingsley YARD PIPE GRADER.NUCLEAR POWERPLANT MECHANIC HELPER Work Phone: [facility] 12-23-2022 16:35-0400 Systolic blood pressure 166 mm[Hg] Deandre Clementlekingsley YARD PIPE GRADER.NUCLEAR POWERPLANT MECHANIC HELPER Work Phone: [facility] 12-16-2022 13:05-0400 Body weight 77.56 kg Nicol Faria YARD PIPE GRADER.NUCLEAR POWERPLANT MECHANIC HELPER Work Phone: [facility] 12-16-2022 13:05-0400 Diastolic blood pressure 58 mm[Hg] Nicol Faria YARD PIPE GRADER.NUCLEAR POWERPLANT MECHANIC HELPER Work Phone: [facility] 12-16-2022 13:05-0400 Heart rate 65 /min Nicol Faria YARD PIPE GRADER.NUCLEAR POWERPLANT MECHANIC HELPER Work Phone: [facility] 12-16-2022 13:05-0400 Respiratory rate 16 /min Nicol Faria YARD PIPE GRADER.NUCLEAR POWERPLANT MECHANIC HELPER Work Phone: [facility] 12-16-2022 13:05-0400 SaO2% (BldA) [Mass fraction] 97 % Nicol Holleyhof YARD PIPE GRADER.NUCLEAR POWERPLANT MECHANIC HELPER Work Phone: [facility] 12-16-2022 13:05-0400 Systolic blood pressure 98 mm[Hg] Nicol Holleyhof YARD PIPE GRADER.NUCLEAR POWERPLANT MECHANIC HELPER Work Phone: [facility] 11-11-2022 16:27-0400 Body height 177.8 cm Fangfei Sherry DO Work Phone: [facility] 11-11-2022 16:27-0400 Body weight 80.88 kg Fangfei Sherry DO Work Phone: [facility] 11-11-2022 16:27-0400 Diastolic blood pressure 79 mm[Hg] Fangfei Sherry DO Work Phone: [facility] 11-11-2022 16:27-0400 Heart rate 58 /min Fangfei Sherry DO Work Phone: [facility] 11-11-2022 16:27-0400 Respiratory rate 20 /min Fangfei Sherry DO Work Phone: [facility] 11-11-2022 16:27-0400 Systolic blood pressure 155 mm[Hg] Fangfei Sherry DO Work Phone: [facility] 10-14-2022 13:35-0400 Body height 177.8 cm Fangfei Sherry DO Work Phone: [facility] 10-14-2022 13:35-0400 Body weight 79.33 kg Fangfei Sherry DO Work Phone: [facility] 10-14-2022 13:35-0400 Diastolic blood pressure 61 mm[Hg] Fangfei Sherry DO Work Phone: [facility] 10-14-2022 13:35-0400 Heart rate 63 /min Fangfei Sherry DO Work Phone: [facility] 10-14-2022 13:35-0400 Respiratory rate 20 /min Fangfei Sherry DO Work Phone: [facility] 10-14-2022 13:35-0400 Systolic blood pressure 115 mm[Hg] Fangfei Sherry DO Work Phone: [facility] 09-02-2022 15:47-0400 Body weight 80.74 kg Herminio Gr MD Work Phone: [facility] 09-02-2022 15:47-0400 Diastolic blood pressure 66 mm[Hg] Herminio Gr MD Work Phone: [facility] 09-02-2022 15:47-0400 Heart rate 68 /min Herminio Gr MD Work Phone: [facility] 09-02-2022 15:47-0400 Respiratory rate 16 /min Herminio Gr MD Work Phone: [facility] 09-02-2022 15:47-0400 Systolic blood pressure 110 mm[Hg] Herminio Gr MD Work Phone: [facility] 07-22-2022 11:04-0400 Body weight 86.73 kg Herminio Gr MD Work Phone: [facility] 07-22-2022 11:04-0400 Diastolic blood pressure 72 mm[Hg] Herminio Gr MD Work Phone: [facility] 07-22-2022 11:04-0400 Heart rate 64 /min Herminio Gr MD Work Phone: [facility] 07-22-2022 11:04-0400 Respiratory rate 16 /min Herminio Gr MD Work Phone: [facility] 07-22-2022 11:04-0400 Systolic blood pressure 124 mm[Hg] Herminio Gr MD Work Phone: [facility] 05-13-2022 16:29-0500 Body temperature 97.59 [degF] Mary Tellez APRN.CNP Work Phone: [facility] 05-13-2022 16:29-0500 Body weight 87.73 kg Mary Tellez YARD PIPE GRADER.NUCLEAR POWERPLANT MECHANIC HELPER Work Phone: [facility] 05-13-2022 16:29-0500 Diastolic blood pressure 68 mm[Hg] Mary Tellez YARD PIPE GRADER.NUCLEAR POWERPLANT MECHANIC HELPER Work Phone: [facility] 05-13-2022 16:29-0500 Heart rate 60 /min Mary Tellez YARD PIPE GRADER.NUCLEAR POWERPLANT MECHANIC HELPER Work Phone: [facility] 05-13-2022 16:29-0500 Respiratory rate 18 /min Mary Tellez YARD PIPE GRADER.NUCLEAR POWERPLANT MECHANIC HELPER Work Phone: [facility] 05-13-2022 16:29-0500 SaO2% (BldA) [Mass fraction] 97 % Mary Tellez YARD PIPE GRADER.NUCLEAR POWERPLANT MECHANIC HELPER Work Phone: [facility] 05-13-2022 16:29-0500 Systolic blood pressure 118 mm[Hg] Mary Tellez YARD PIPE GRADER.NUCLEAR POWERPLANT MECHANIC HELPER Work Phone: [facility] 08-23-2021 15:09-0400 Body temperature 98.2 [degF] Deandre Jackson YARD PIPE GRADER.NUCLEAR POWERPLANT MECHANIC HELPER Work Phone: [facility] 08-23-2021 15:09-0400 Body weight 85.82 kg Deandre Jackson YARD PIPE GRADER.NUCLEAR POWERPLANT MECHANIC HELPER Work Phone: [facility] 08-23-2021 15:09-0400 Diastolic blood pressure 68 mm[Hg] Deandre Jackson YARD PIPE GRADER.NUCLEAR POWERPLANT MECHANIC HELPER Work Phone: [facility] 08-23-2021 15:09-0400 Heart rate 82 /min Deandre Pendlekingsley YARD PIPE GRADER.NUCLEAR POWERPLANT MECHANIC HELPER Work Phone: [facility] 08-23-2021 15:09-0400 Respiratory rate 20 /min Deandre Pendlekingsley YARD PIPE GRADER.NUCLEAR POWERPLANT MECHANIC HELPER Work Phone: [facility] 08-23-2021 15:09-0400 SaO2% (BldA) [Mass fraction] 94 % Deandre Pendlebury YARD PIPE GRADER.NUCLEAR POWERPLANT MECHANIC HELPER Work Phone: [facility] 08-23-2021 15:09-0400 Systolic blood pressure 122 mm[Hg] Deandre Jackson APRN.NUCLEAR POWERPLANT MECHANIC HELPER Work Phone: [facility] 08-10-2021 10:53-0400 Body weight 87.05 kg Herminio Gr MD Work Phone: [facility] 08-10-2021 10:53-0400 Diastolic blood pressure 70 mm[Hg] Herminio Gr MD Work Phone: [facility] 08-10-2021 10:53-0400 Heart rate 66 /min Herminio Gr MD Work Phone: [facility] 08-10-2021 10:53-0400 Respiratory rate 16 /min Herminio Gr MD Work Phone: [facility] 08-10-2021 10:53-0400 Systolic blood pressure 126 mm[Hg] Herminio Gr MD Work Phone: [facility] 07-16-2021 09:45-0400 Body temperature 97.11 [degF] Griselda Athy PA-C Work Phone: [facility] 07-16-2021 09:45-0400 Body weight 89.9 kg Griselda Athy PA-C Work Phone: [facility] 07-16-2021 09:45-0400 Diastolic blood pressure 80 mm[Hg] Griselda Athy PA-C Work Phone: [facility] 07-16-2021 09:45-0400 Heart rate 76 /min Griselda Athy PA-C Work Phone: [facility] 07-16-2021 09:45-0400 Respiratory rate 18 /min Griselda Athy PA-C Work Phone: [facility] 07-16-2021 09:45-0400 SaO2% (BldA) [Mass fraction] 98 % Griselda Athy PA-C Work Phone: [facility] 07-16-2021 09:45-0400 Systolic blood pressure 126 mm[Hg] Griselda Athy PA-C Work Phone: [facility] 07-11-2021 13:43-0400 Body temperature 97.9 [degF] Griselda Athy PA-C Work Phone: [facility] 07-11-2021 13:43-0400 Body weight 89.36 kg Griselda Athy PA-C Work Phone: [facility] 07-11-2021 13:43-0400 Diastolic blood pressure 66 mm[Hg] Griselda Athy PA-C Work Phone: [facility] 07-11-2021 13:43-0400 Heart rate 70 /min Griselda Athy PA-C Work Phone: [facility] 07-11-2021 13:43-0400 Respiratory rate 16 /min Griselda Athy PA-C Work Phone: [facility] 07-11-2021 13:43-0400 SaO2% (BldA) [Mass fraction] 96 % Griselda Athy PA-C Work Phone: [facility] 07-11-2021 13:43-0400 Systolic blood pressure 128 mm[Hg] Griselda Athy PA-C Work Phone: [facility] 10-10-2016 10:17-0400 BMI (Body Mass Index) 30.56 [...] Heart rate 60 /min Shelbie Lake RN [facility] Work Phone: 03-29-2016 13:31-0500 BMI (Body Mass Index) 31.71 kg/m2 Shelbie Lake RN [facility] Work Phone: 03-29-2016 13:31-0500 BP Diastolic 68 mm[Hg] Shelbie Lake RN [facility] Work Phone: 03-29-2016 13:31-0500 BP Systolic 126 mm[Hg] Shelbie Lake RN [facility] Work Phone: 03-29-2016 13:31-0500 BSA (Body Surface Area) 2.18 m2 Shelbie Lake RN [facility] Work Phone: 03-29-2016 13:31-0500 Height 177.8 cm Shelbie Lake RN [facility] Work Phone: 03-29-2016 13:31-0500 Pulse (Heart Rate) 72 /min Shelbie Lake RN [facility] Work Phone: 03-29-2016 13:31-0500 Respiratory Rate 18 /min Shelbie Lake RN [facility] Work Phone: 03-29-2016 13:31-0500 Weight 100.25 kg Shelbie Lake RN [facility] Work Phone: Encounters Encounter Date Encounter Type Care Provider Facility Start: 03-31-2023 End: 03-31-2023 ambulatory CHAPIN DAWN Facility:[facility] Start: 03-10-2023 End: 03-11-2023 ambulatory HERMINIO Freed [facility] Facility:[facility] Start: 03-03-2023 End: 03-04-2023 ambulatory CHAPIN DAWN Facility:[facility] Start: 03-03-2023 End: 03-04-2023 ambulatory CHAPIN DAWN Facility:[facility] Start: 03-03-2023 End: 03-03-2023 ambulatory Chapin Dawn DO Work Phone: Hematology/Oncology Procedures Date Procedure Procedure Detail Performing Clinician Start: 12-16-2022 Urnls dip stick/tablet rgnt auto w/o microscopy iNcol Faria APRN.NUCLEAR POWERPLANT MECHANIC HELPER Work Phone: Start: 11-17-2022 Mri brain brain stem w/o contrast material [email or web address] Work Phone: Start: 11-17-2022 3d rendering w/interp&postproc diff work station [email or web address] Work Phone: Start: 10-10-2016 End: 10-10-2016 KAILASH [...] Phone: Start: 03-29-2016 End: 03-30-2016 Referral to interior horticulturist Johnny King MD Work Phone: Start: 03-29-2016 [...] Detail Author Start: 10-31-2028 Urine microalbumin profile [facility] Start: 07-23-2023 COVID-19 VACCINE (#1) COVID-19 VACCI NE (#1) [facility] Immunizations Immunization Date Immunization Notes Care Provider Fa claude 10-31-2018 tetanus toxoid, reduced diphtheria toxoid, and acellular pertussis vaccine, adsorbed Herminio Gr MD Work Phone: [facility] 02-27-2018 influenza virus vaccine, unspecified formulation Nicol Faria APRN.CNP Work Phone: [facility] 11-26-2014 pneumococcal conjuga te vaccine, 13 valent Herminio Gr MD Work Phone: [facility] 02-05-2014 influenza, seasonal, injectable Herminio Gr MD Work Phone: [facility] 09-27-2013 tetanus and diphther ia toxoids, adsorbed, preservative free, for adult use (5 Lf of tetanus toxoid and 2 Lf of diphtheria toxoid) Herminio Gr MD Work Phone: [facility] 01-18-2013 influenza virus vaccine, unspecified formulation Herminio Gr MD Work Phone: [facility] Work Phone: 01-24-2012 influenza virus vaccine, unspecified formulation Herminio Gr MD Work Phone: [facility] 12-25-2010 influenza virus vaccine, unspecified formulation Herminio Gr MD Work Phone: [facility] Work Phone: 01-22-2007 influenza virus vaccine, unspecified formulation Herminio Gr MD Work Phone: [facility] Work Phone: Payers Date Payer Category Payer Unknown [employer] HMO POS [id number] 2014-Present [phone] [address] [place] [address] O [id number] 2014 Unknown [employer]IM[employer]IME [employer] HMO POS [id number] 2014-Present [phone] [address] [place] [address] O [id number] 2014 Unknown [id number] Social History Date Type Detail Facility Start: 11-30-2010 End: 12-28-2021 Tobacco smoking status NHIS Ex-smoker [facility] End: 03-20-1983 History of tobacco use Current smoker [facility] End: 03-20-1983 History of tobacco use Cigarette Smoker [facility] Start: 11-30-2010 End: 07-22-2022 Cigarettes smoked current (pack per day) - Reported 1 [facility] Start: 11-30-2010 End: 12-28-2021 Tobacco use and exposure Smokeless tobacco non-user [facility] Start: 03-09-2021 End: 03-03-2023 Alcohol intake Current drinker of alcohol (finding) [facility] Start: 10-22-2020 History SDOH Alcohol Frequency 2 [facility] Start: 10-22-2020 History SDOH Alcohol Std Drinks 1 [facility] Start: 01-01-2013 History SDOH Alcohol Comment very seldom [facility] Start: 10-22-2020 History SDOH Social Connections Phone 5 [facility] Start: 10-22-2020 History SDOH Social Connections Muslim 3 [facility] Start: 10-22-2020 History SDOH Social Connections Living 4 [facility] Start: 10-21-2020 Education 21 [facility] Start: 04-12-2013 End: 12-28-2021 Tobacco Comment Pt smoked on & off for 20 years. [facility] Start: 1935 Sex Assigned At Not on file C [facility] Start: 07-01-2021 End: 12-28-2021 Exposure to SARS-CoV-2 (event) Not sure [facility] Start: 10-21-2020 End: 07-22-2022 Social connection and isolation panel [facility] Do you belong to any clubs or organizations such as orthodox groups, unions, fraternal or athletic groups, or school groups? Yes [facility] Are you now , , , , never or living with a partner? [facility] How often to you hav e a drink containing alcohol? Monthly or less [facility] How many standard dr inks containing alcohol do you have on a typical day? 1 or 2 [facility] How often do you hav e 6 or more drinks on 1 occasion? Never [facility] Adult Depression Scr eening Assessment 0 [facility] Work Phone: Do you feel stress - tense, restless, nervous, or anxious, or unable to sleep at night because your mind is troubled all the time - these days [OSQ] Only a little [facility] (I/We) worried wheth er (my/our) food would run out before (I/we) got money to buy more. Never true [facility] In the past 12 month s, was there a time when you were not able to pay the mortgage or rent on time? No [facility] Clinical Notes 06-24-2021 to 03-31-2023 Chapin Dawn, - 03/03/2023 11:57 AM Scar Rivero APRN.NUCLEAR POWERPLANT MECHANIC HELPER - 02/19/2023 11:56 AM ESTTelephone Encounter - Adama Gonzales - 02/10/2023 3:35 PM ESTPatient InstructionsPatient Instructions Note Date & Type Note Facility 03-31-2023 Note HNO ID: [id number] Author: АННА LEE RN Service: ? Author Type: Registered Nurse Type: Progress Notes Filed: 04/03/2023 17:08 Note Text: [facility] received prescription(s) for Calquence from Dr. Dawn's office. PA was initiated and pending review. Plan Name: [employer] Plan / [employer] Case: TBD Timeline: URGENT Fax confirmation: SILVIA Jade, FREDI April 03, 2023 4:45 PM [facility] 03-31-2023 Note HNO ID: [id number] Author: MARK VELA RPh Service: ? Author Type: ? Type: Progress Notes Filed: 04/06/2023 10:56 Note Text: [facility] received prescription(s) for Calquence from Nereyda's office. Benefits investigation was conducted, indicating that a prior authorization is required. PA was approved with details listed below: Plan Name: [employer] / [employer] PA reference number: N/A Approval Dates: 04/03/2023 [...] appropriate. Mark Vela, PharmD Clinical Pharmacist, Oncology [facility] P: ; F: Pool: P CC [facility] Pool #: [id number] [facility] 03-31-2023 Note HNO ID: [id number] Author: ?, ?, ? Service: ? Author Type: ? Type: Progress Notes Filed: 03/31/2023 14:13 Note Text: [facility] received prescription(s) for Calquence from Dr. Dawn's office. Benefits investigation was conducted, indicating that a prior authorization is required by patient's insurance plan with [employer]. Encounter will be updated once prior authorization has been submitted by [facility]. Becca Smith CPhT [facility], Oncology P: / F: [facility] 03-31-2023 Note HNO ID: [id number] Author: ?, ?, ? Service: ? Author Type: ? 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 Becca Smith CPhT [facility], Oncology P: / F: [facility] 03-31-2023 Note HNO ID: [id number] Author: CHAPIN DAWN, DO Service: ? Author [...] Abs Lymph 1.00 - 4.00 k/uL 3.11 Alger% % 4.2 Abs Alger <0.87 k/uL 0.16 Eosin% % 3.6 Abs Eosin <0.46 k/uL 0.14 Baso% % 1.0 Abs Baso <0.11 k/uL 0.04 Immature Gran % % 1.6 IMM (more content not included)... [facility] 03-10-2023 Note HNO ID: [id number] Author: Teresa Dunn RDMS Service: ? Author Type: Hand Laminator Type: Progress Notes Filed: 03/10/2023 1:16 PM [...] RDMS RVMargie March 10, 2023 1:16 PM [facility] 03-03-2023 Note HNO ID: [id number] Author: Chapin Dawn, DO Service: ? Author [...] Abs Lymph 1.00 - 4.00 k/uL 3.11 Alger% % 4.2 Abs Alger <0.87 k/uL 0.16 Eosin% % 3.6 Abs Eosin <0.46 k/uL 0.14 Baso% % 1.0 Abs Baso <0.11 k/uL 0.04 Immature Gran % % 1.6 IMMATURE GRANS (ABS) <0.10 k/uL 0.06 NRBC /100 WBC 0.0 A (more content not included)... [facility] 03-03-2023 History of Presen t [...] Abs Lymph 1.00 - 4.00 k/uL 3.11 Alger% % 4.2 Abs Alger <0.87 k/uL 0.16 Eosin% % 3.6 Abs [...] which included preparing to see the patient, [id number] patient care, completing clinical documentation, obtaining and/or reviewing separately obtained history, performing a medically appropriate examination, counseling and educating the patient/family/caregiver, ordering medications, tests, or procedures, communicating with other HCPs (not separately reported), and communicating results to the patient/family/caregiver. Chapin Dawn DO documented in this encounter [facility] 02-19-2023 Note HNO ID: [id number] Author: Scar Friedman APRN.NUCLEAR POWERPLANT MECHANIC HELPER Service: ? Author Type: Nurse Practitioner Type: [...] OPEN DEEP AXILLARY NO[facility]/A 01/16/2023 PAST SURGICAL HISTORY OF tonsils and adenoids removed PAST SURGICAL HISTORY OF 02/22/2016 Stent placement, 2. [facility] - Dr. King PAST SURGICAL HISTORY OF [...] symptoms persist, worsen, change Scar Friedman APRN.[facility] 02-19-2023 History of Presen t illness Narrative [...] OPEN DEEP AXILLARY NODE 02/11/2013 EGD W/O [facility] SPEC VARICIES INJ N/A 01/16/2023 PAST SURGICAL HISTORY OF tonsils and adenoids removed PAST SURGICAL HISTORY OF 02/22/2016 Stent placement, 2. [facility] - Dr. King PAST SURGICAL HISTORY OF [...] if symptoms persist, worsen, change Scar Friedman APRN.NUCLEAR POWERPLANT MECHANIC HELPER documented in this encounter [facility] 02-10-2023 Miscellaneous Notes Pt daughterJossie, returned call [...] Herminio Gr MD documented in this encounter [facility] 02-06-2023 Note HNO ID: [id number] Author: Herminio Gr MD Service: ? Author [...] the day. Pt was discharged home from [facility] on 01/30/23 to stay with his son. Follows with Friend, Gastro. He is on 81 mg ASA, Protonix and Iron. Below copied from [facility] [place]: Discharge Diagnosis (1) Postoperative ileus: Status: Resolved [...] SURGICAL HISTORY OF 02/22/2016 Stent placement, 2. [facility] - Dr. King Family History FAMILY HISTORY [...] Reported on 12/16/2022) (more content not included)... [facility] 02-06-2023 Instructions Tish Copeland Ma [...] Peres to discuss. documented in this encounter [facility] 02-06-2023 History of Presen t illness Narrative [...] the day. Pt was discharged home from [facility] on 01/30/23 to stay with his son. Follows with Dr. Friend, Gastro. He is on 81 mg ASA, Protonix and Iron. Below copied from [facility]: Discharge Diagnosis (1) Postoperative ileus: Status: [...] SURGICAL HISTORY OF 02/22/2016 Stent placement, 2. [facility] - Dr. King Family History FAMILY HISTORY [...] Completed HPV Vaccine Aged Out Data reviewed [facility] records ASSESSMENT/PLAN: 1. Hospital discharge follow-up - [...] Past Histories independently gathered by the clinical administrative support assistant and the remaining scribed note [...] Tish Copeland Ma documented in this encounter [facility] 02-02-2023 Miscellaneous Notes Noted and agree Herminio Gr MD Chandrika, nurse with [facility] calling. They will be beginning Nursing services with patient. Nursing plans to see pt 2 times per week for 4 weeks then 1 time per week for 3 weeks for disease mgmt. Patient was recently discharged from [facility] yesterday with UTI. No call back needed if provider agreeable. Velma Scott RN documented in this encounter [facility] 01-31-2023 Miscellaneous Notes Rosemary notified. Belem Fierro Ma Will call Monday due to it being after 5:00 pm. Tish Copeland Ma I agree and will follow Herminio Gr MD Rosemary @ [facility] calling to let PCP know patient is being discharged home today from [facility] TCU post hospitalization for bilateral inguinal hernia repair. He has home health orders for nursing/PT. Agree and willing to follow orders? Her phone # [phone]. Ophelia Fowler RN Fidelia from [facility] calling, asking for order for nursing and PT. Patient is going to be discharged from [facility] on 01/30. Please advise. documented in this encounter [facility] 01-12-2023 Miscellaneous Notes Patient's daughter, Jossie, called in to cancel appointments as the patient has been inpatient at [facility] since 01/03 and she does not anticipate his being discharged in time for the appointment. Trudy Merrill documented in this encounter [facility] 01-03-2023 Miscellaneous Notes Left message on daughter [...] Chapin Dawn DO Patient is still in [facility] from a hernia surgery on 12/27/22 and not sure when he will be discharged and he maybe discharged to a SNF. Tri is asking if Dr. Dawn would want labs drawn while he is at [facility]. Please advise. Trudy Merrill documented in this encounter [facility] 12-26-2022 Miscellaneous Notes Sandy with [facility] PAT called over and wanted TSH and urine labs faxed over. Faxed to # [phone]. documented in this encounter [facility] 12-23-2022 Note HNO ID: [id number] Author: Deandre Jackson APRN.NUCLEAR POWERPLANT MECHANIC HELPER Service: ? Author Type: Nurse Practitioner Type: [...] SURGICAL HISTORY OF 02/22/2016 Stent placement, 2. [facility] - Dr. King ALLERGIES Baby Aspirin [Aspirin], [...] with plan of care. Deandre Jackson APRN.[facility] 12-23-2022 History of Presen t illness Narrative [...] SURGICAL HISTORY OF 02/22/2016 Stent placement, 2. [facility] - Dr. King ALLERGIES Baby Aspirin [Aspirin], [...] Deandre Jackson APRN.[facility]IT documented in this encounter [facility] 12-20-2022 Miscellaneous Notes Pt and his daughter [...] Nicol Faria APRN.ARPIT documented in this encounter [facility] 12-17-2022 Miscellaneous Notes Patient notified and verbalized [...] appt is 02/03/2023 documented in this encounter [facility] 12-16-2022 Note HNO ID: [id number] Author: Nicol Faria APRN.ARPIT Service: ? Author Type: Nurse Practitioner Type: Progress Notes Filed: 12/16/2022 2:30 PM Note Text: This is a 87 year old male who presents today with: Patient presents with: Follow Up: [facility] follow up HISTORY OF PRESENT ILLNESS: John Contreras is a 87 year old male. Patient presents with: Follow Up: [facility] follow up HOSPITAL/ER FOLLOW UP: Reason for visit: Hypotension/Fever Which facility: [facility] ER Date of visit: 12/08/2022-12/09/2022 Diagnosis: Acute [...] urinary symptoms. Culture results not noted from [facility]. Daughters refer that he had a fever [...] SURGICAL HISTORY OF 02/22/2016 Stent placement, 2. [facility] - Dr. King ALLERGIES Baby Aspirin [Aspirin], [...] - Still schreiber (more content not included)... [facility] 12-16-2022 Instructions Nicol Faria APRN.ARPIT - 12/16/2022 1:28 PM EDT Urine will be sent off for culture Start Cipro, take twice daily with food. Stay well hydrated. If needed may use Miralax 1-2 times per day for constipation. Red flag symptoms go to ER Follow up pending test results. documented in this encounter [facility] 12-16-2022 History of Presen t illness Narrative This is a 87 year old male who presents today with: Patient presents with: Follow Up: [facility] follow up HISTORY OF PRESENT ILLNESS: John Contreras is a 87 year old male. Patient presents with: Follow Up: [facility] follow up HOSPITAL/ER FOLLOW UP: Reason for visit: Hypotension/Fever Which facility: [facility] ER Date of visit: 12/08/2022-12/09/2022 Diagnosis: Acute [...] urinary symptoms. Culture results not noted from [facility]. Daughters refer that he had a fever [...] SURGICAL HISTORY OF 02/22/2016 Stent placement, 2. [facility] - Dr. King ALLERGIES Baby Aspirin [Aspirin], [...] hematuria - ICD9: 595.0, ICD10: N30.01 - [facility] Culture results not available. - Start Cipro [...] discussed and patient voices understanding. Nicol Faria APRN.NUCLEAR POWERPLANT MECHANIC HELPER This note was partially generated using Sound[employer] recognition system. Note was reviewed for accuracy. There may be minor misspellings or grammar miscues with [employer] voice recognition. documented in this encounter [facility] 12-08-2022 Note HNO ID: [id number] Author: Nicol Faria APRN.NUCLEAR POWERPLANT MECHANIC HELPER Service: ? Author Type: Nurse Practitioner Type: [...] SURGICAL HISTORY OF 02/22/2016 Stent placement, 2. [facility] - Dr. King ALLERGIES Baby Aspirin [Aspirin], [...] plan as #1. (more content not included)... [facility] 11-17-2022 Note HNO ID: [id number] Author: Chandrika Mason RT(Amish) Service: ? Author [...] RT Lakshmi(Amish) November 17, 2022 7:48 AM [facility] 11-17-2022 History of Presen t [...] 2022 7:48 AM documented in this encounter [facility] 11-11-2022 Note HNO ID: [id number] Author: Juju Tim DO Service: ? Author Type: Physician Type: Progress Notes Filed: 11/11/2022 4:52 PM Note Text: Juju Tim DO [facility] [address] [place] [address] Visit Date: November 10, 2022 Name: Mr.Clyde Abdiaziz Contreras Date of : 1935 MRN/E #: [id number] Chief Complaint: Patient presents with: Geriatrics: Depression [...] SURGICAL HISTORY OF 02/22/2016 Stent placement, 2. [facility] - Dr. King Social History Tobacco Use [...] once daily. levothy (more content not included)... [facility] 11-11-2022 Instructions Juju Tim DO - 11/11/2022 4:42 PM EDT Images from the original note were not included. Tips to help with your memory and cognition 1. COGNITIVE STIMULATION Keep your brain active by doing mentally stimulating activities for 30 minutes twice a day. Here are few suggested activities: - crossword puzzles - jigsaw puzzles - [place] DEPT.u games - word finding - problem solving [...] complex ones, such as the car or beer merchant; later, the telephone; and lastly even table [...] insist, they should be evaluated by a transport truck driver movement education specialist to assess their driving risks. They might get therapy to improve their driving ability and lower their risks. Medicare covers an Occupational Therapy evaluation for certain diagnoses, such as stroke or lack of coordination. If Medicare does not cover it for you in your region of the country, consider an evaluation by a private driving school from an instructor who is certified in transport truck driver rehabilitation. Moderate: People in the [...] benefits may help reduce caregiver burden, delay mcfp placement, and improve neuropsychiatric problems (such as [...] older adults with moderate AD may delay mcfp entry but is associated with an increased [...] not proven to have benefit. References National [place] on Aging. Alzheimer's Disease Education & Referral Center. www.lucy.nih.gov Accessed 10/15/2010 Alzheimer's Association. Alzheimer's Disease: Stages of Alzheimer's Disease. www.alz.org Accessed 10/15/2010 DEVAUGHN Pisano. Alzheimer's Disease. [place] Journal of Medicine 2003; Isauro 1;351(1):56-67 Copyright 2441-3377 [facility]. All rights reserved This information is provided by the [facility] and is not intended to replace the medical advice of your doctor or health care provider. Please consult your health care provider for advice about a specific medical condition. For additional health information, please contact the Center for Consumer Health Information at the [facility] or toll-free extension [phone]. If you prefer, you may visit [email or web address] or [email or web address]. This document was last reviewed on: 2010 index#36260 documented in this encounter [facility] 11-11-2022 History of Presen t illness Narrative Images from the original note were not included. Juju Tim DO [facility] [address] [place] [address] [address] [place] [address] Visit Date: November 10, 2022 Name: Mr.Clyde Abdiaziz Contreras Date of : 1935 MRN/E #: [id number] Chief Complaint: Patient presents with: Geriatrics: Depression [...] SURGICAL HISTORY OF 02/22/2016 Stent placement, 2. [facility] - Dr. King Social History Tobacco Use [...] plans. This note was partially generated using [employer]atch [employer] voice recognition system, and there may be some incorrect words, spellings, and punctuation that were not noted in checking the note before saving. documented in this encounter [facility] 10-27-2022 Miscellaneous Notes The following approved medication [...] Katie Mcdaniels LPN documented in this encounter [facility] 10-14-2022 Note HNO ID: [id number] Author: Juju Tim, Service: ? Author Type: Physician Type: Progress Notes Filed: 10/14/2022 3:47 PM Note Text: Juju Tim DO [facility] 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 Yes Is a power of commercial real estate attorney in place for financial needs? Yes Is a power of commercial real estate attorney in place for health care decisions? [...] of the ti (more content not included)... [facility] 10-14-2022 Instructions Juju TimDO - 10/14/2022 2:49 PM EDT Images from the original note were not included. Tips to help with your memory and cognition 1. COGNITIVE STIMULATION Keep your brain active by doing mentally stimulating activities for 30 minutes twice a day. Here are few suggested activities: - crossword puzzles - jigsaw puzzles - [employer] games - word finding - problem solving activities - learn a new hobby or take a class 2. SOCIAL INTERACTION Talk to a friend, family member or neighbor at least once a day. Engage in community activities. Consider joining your local [employer] center. 3. PHYSICAL ACTIVITY Make sure you move your body every day. You may vary your exercises to help keep your brain sharp. Always check with your health care provider before starting a new exercise program. Try to walk at least 30 minutes 5 times per week. You may also consider trying Andrae Chi or Yoga to help with balance [...] multi-infarct cognitive impairment, inherited disorders such as Broadview's disease, and infections such as HIV. The most common causes of dementia include: Degenerative neurological diseases, such as Alzheimer's, frontotemporal lobar degeneration, dementia with Lewy bodies, Parkinson's, and Broadview's diseases Vascular disorders, such as multi-infarct dementia, [...] of the underlying disease however. References National [place] of Neurological Disorders & Stroke. NINDS Dementia Information Page Accessed 11/25/2013. Family Caregiver [place]. [facility] Ed on Caregiving. Is this Dementia and What Does it Mean? Accessed 11/25/2013. National [place] on Aging. Forgetfulness: Knowing When to Ask for Help Accessed 11/25/2013. Copyright 9108-1015 [facility]. All rights reserved This information is provided by the [facility] and is not intended to replace the medical advice of your doctor or health care provider. Please consult your health care provider for advice about a specific medical condition. For additional health information, please contact the Center for Consumer Health Information at the [facility] or toll-free extension [phone]. If you prefer, you may visit [email or web address] or [email or web address]. This document was last reviewed on: 2013 index#4170 Stages and Treatment of Alzheimer's Disease Alzheimer's [...] complex ones, such as the car or beer merchant; later, the telephone; and lastly even table [...] insist, they should be evaluated by a transport truck driver movement education specialist to assess their driving risks. They might get therapy to improve their driving ability and lower their risks. Medicare covers an Occupational Therapy evaluation for certain diagnoses, such as stroke or lack of coordination. If Medicare does not cover it for you in your region of the country, consider an evaluation by a private driving school from an instructor who is certified in transport truck driver rehabilitation. Moderate: People in the [...] benefits may help reduce caregiver burden, delay mcfp placement, and improve neuropsychiatric problems (such as [...] older adults with moderate AD may delay mcfp entry but is associated with an increased [...] not proven to have benefit. References National [place] on Aging. Alzheimer's Disease Education & Referral Center. www.lucy.nih.gov Accessed 10/15/2010 Alzheimer's Association. Alzheimer's Disease: Stages of Alzheimer's Disease. www.alz.org Accessed 10/15/2010 DEVAUGHN Pisano. Alzheimer's Disease. [place] Journal of Medicine 2003; Isauro 1;351(1):56-67 Copyright 8683-1024 [facility]. All rights reserved This information is provided by the [facility] and is not intended to replace the medical advice of your doctor or health care provider. Please consult your health care provider for advice about a specific medical condition. For additional health information, please contact the Center for Consumer Health Information at the [facility] or toll-free extension [phone]. If you prefer, you may visit [email or web address] or [email or web address]. This document was last reviewed on: 2010 index#12067 documented in this encounter [facility] 10-14-2022 History of Presen t illness Narrative Images from the original note were not included. Juju Tim DO 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 Yes Is a power of commercial real estate attorney in place for financial needs? Yes Is a power of commercial real estate attorney in place for health care decisions? Yes Is palliative or hospice care appropriate for the patient? No II) Mentation: [place] Cognitive Exam (MOCA): not on file Cognitive [...] vision impairment and wears glasses Follows with welding process engineer:NO Hearing - Hearing aid : Hearing impairment, [...] SURGICAL HISTORY OF 02/22/2016 Stent placement, 2. [facility] - Dr. King Social History Tobacco Use [...] community resources. JUJU TIM DO GERIATRIC MEDICINE [facility] Discussed the above with the patient using shared decision making. The patient is in agreement with the diagnostic and treatment plans. This note was partially generated using Wasatch Wind voice recognition system, and there may be some incorrect words, spellings, and punctuation that were not noted in checking the note before saving. documented in this encounter [facility] 09-07-2022 Miscellaneous Notes Daughter calls and phone number given to schedule consult to geriatrics. Marion Selby RN Please give daughter Jossie this number to schedule an appointment for patient for consult to geriatrics when she returns call: [phone]. Marion Selby RN Daughter (Jossie) requests you call her to schedule the consult to geriatric appointment at [phone]. Thanks, Marion Selby RN documented in this encounter [facility] 09-07-2022 Miscellaneous Notes Pt's daughter called in [...] elevations and asking for call back at [phone]. Marion Selby RN Please notify patient/family that his lab results look OK/stable. I would suggest getting a Geriatrics consult for further evaluation of his memory issues. Herminio Gr MD documented in this encounter [facility] 09-02-2022 Note HNO ID: [id number] Author: Herminio Gr MD Service: ? Author [...] feel he has trouble swallowing food. Uses [email or web address] william to watch where he goes when [...] SURGICAL HISTORY OF 02/22/2016 Stent placement, 2. [facility] - Dr. King Family History FAMILY HISTORY [...] ADVANCE DIRECTIVE DISCUSS (more content not included)... [facility] 09-02-2022 History of Presen t [...] feel he has trouble swallowing food. Uses [email or web address] william to watch where he goes when [...] SURGICAL HISTORY OF 02/22/2016 Stent placement, 2. [facility] - Dr. King Family History FAMILY HISTORY [...] Past Histories independently gathered by the clinical administrative support assistant and the remaining scribed note [...] Tish Copeland Ma documented in this encounter [facility] 07-22-2022 Note HNO ID: [id number] Author: Herminio Gr MD Service: ? Author [...] His kids check on him daily, use [employer]. HM - Denies feeling down, depressed or [...] SURGICAL HISTORY OF 02/22/2016 Stent placement, 2. [facility] - Dr. King Family History FAMILY HISTORY [...] due on 03/20/2022 (more content not included)... [facility] 07-22-2022 History of Presen t [...] His kids check on him daily, use [employer]. HM - Denies feeling down, depressed or [...] SURGICAL HISTORY OF 02/22/2016 Stent placement, 2. [facility] - Dr. King Family History FAMILY HISTORY [...] 06/25/2022 3.41 Monocytes % 06/25/2022 3.3 Abs [place] 06/25/2022 0.14 Eosinophils % 06/25/2022 4.0 Abs [...] - LIPID PANEL BASIC 3. Atherosclerosis of gray[place] coronary 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 - ICD9: 414.01, [...] Past Histories independently gathered by the clinical administrative support assistant and the remaining scribed note [...] Tish Copeland Ma documented in this encounter [facility] 07-04-2022 Miscellaneous Notes The following approved medication requests have been transmitted electronically. Requested Prescriptions Pending Prescriptions Disp Refills losartan (COZAAR) 25 mg tablet 90 tablet 3 Sig: Take 1 tablet by mouth once daily. Michael Cunha APRN.CNP documented in this encounter [facility] 07-01-2022 Miscellaneous Notes Patient was notified Jossie Malik Ma Please notify patient that his lab results show that his thyroid level is off a little, so I would like to increase his thyroid medicine to 88 mcg daily. Will discuss further at his appt in July. Herminio Gr MD documented in this encounter [facility] 05-25-2022 Note HNO ID: [id number] Author: Maura Francisco RT(R) Service: Nuclear Medicine [...] RT Marek(R) May 25, 2022 11:25 AM [facility] 05-25-2022 Note HNO ID: [id number] Author: Lexi Blandon Service: ? Author Type: [...] SURGICAL HISTORY OF 02/22/2016 Stent placement, 2. [facility] - Dr. King FAMILY HISTORY Problem Relation [...] strength dorsiflexion, plantarflexio (more content not included)... [facility] 05-25-2022 Note HNO ID: [id number] Author: Ana Lee LPN Service: ? Author Type: LICENSED NURSE Type: Progress Notes Filed: 05/25/2022 12:33 PM Note Text: AMB ROOMING INTAKE FLOWSHEET DATA Pain Pain Level: 10 Pain Location: Toe Description: Sharp Duration Amount of Time: 3 Duration Units: Months Frequency: Continuous Intervention/Comfort measure: Reposition, Relaxation Patient presents with: Right Foot - New, Pain, Ulcer Ana Lee LPN [facility] 05-25-2022 History of Presen t [...] SURGICAL HISTORY OF 02/22/2016 Stent placement, 2. [facility] - Dr. King FAMILY HISTORY Problem Relation [...] Blandon DPM Podiatry [address] [facility] [address] Dept: [phone] Dept AMB ROOMING INTAKE FLOWSHEET DATA Pain Pain Level: 10 Pain Location: Toe Description: Sharp Duration Amount of Time: 3 Duration Units: Months Frequency: Continuous Intervention/Comfort measure: Reposition, Relaxation Patient presents with: Right Foot - New, Pain, Ulcer Ana Lee LPN documented in this encounter [facility] 05-23-2022 Miscellaneous Notes Pt notified. Reminder mailed [...] July. Kaylyn CERDA documented in this encounter [facility] 05-13-2022 Note HNO ID: [id number] Author: Mary Tellez APRN.[facility] Service: ? Author Type: Nurse Practitioner [...] history is provided by the patient. No speech language pathologist travel was used. ROS Objective Physical Exam Constitutional: [...] SURGICAL HISTORY OF 02/22/2016 Stent placement, 2. [facility] - Dr. King ALLERGIES Baby Aspirin [Aspirin], [...] with this care plan. Mary Tellez APRN.[facility] 05-13-2022 History of Presen t illness Narrative [...] history is provided by the patient. No speech language pathologist travel was used. ROS Objective Physical Exam Constitutional: [...] SURGICAL HISTORY OF 02/22/2016 Stent placement, 2. [facility] - Dr. King ALLERGIES Baby Aspirin [Aspirin], [...] Mary Tellez APRN.ARPIT documented in this encounter [facility] 02-07-2022 Miscellaneous Notes Notified via [employer] to follow up in 6 months, sometime in July. Belem Fierro Ma OK to follow up in 6 months Herminio Gr MD Office received call from Door Hanger, Velma Pereira regarding pt. She was attempting to get him rescheduled due to cancelling his 1 month/routine f/u. Pt daughter and pt stating they did not need to keep this appt as the labs were fine that he recently completed. Please review chart. Pt would be due for his 6 mo f/u in January. Advise. Update daughter via [employer]. Wrote message in on 01/25/22 to PCP. Tish Copeland Ma documented in this encounter [facility] 10-04-2021 Miscellaneous Notes The following approved medication requests have been transmitted electronically. Signed Prescriptions Disp Refills carvedilol (COREG) 3.125 mg tablet 180 tablet 3 Sig: Take 1 tablet by mouth twice daily with meals. EMMY: No Authorizing Provider: HERMINIO GR Ma OK to refill as ordered Herminio Gr MD Last office visit: 08/10/21 F/u scheduled: 02/11/22 Belem Fierro Ma documented in this encounter [facility] 10-04-2021 Miscellaneous Notes The following approved medication [...] Ma OK to refill as ordered Herminio rG MD Last office visit: 08/10/21 F/u scheduled: 02/11/22 Belem Fierro Ma documented in this encounter [facility] 10-04-2021 Miscellaneous Notes Done in other phone note Herminio Gr MD Last office visit: 08/10/21 F/u scheduled: 02/11/22 Belem Fierro Ma documented in this encounter [facility] 08-23-2021 History of Presen t illness Narrative [...] SURGICAL HISTORY OF 02/22/2016 Stent placement, 2. [facility] - Dr. King ALLERGIES Baby Aspirin [Aspirin], [...] Sinus: Maxillary sinus tenderness present. Mouth/Throat: Lips: [place]. Mouth: Mucous membranes are moist. Pharynx: Oropharynx [...] of care. This note was generated using [employer] software. It may contain errors in wording, punctuation, or spelling. Deandre Jackson APRN.ARPIT documented in this encounter [facility] 08-10-2021 Miscellaneous Notes See [employer] message form Jossie, Pt daughter and POA documented in this encounter [facility] 08-10-2021 History of Presen t illness Narrative Chief Complaint Patient presents with: 6 Month Exam HPI John Contreras is a 85 year old male who presents here today for a 6 month follow up. Pt here alone. Daughter Jossie tries to come to [facility]. He does have an advanced directive. Has [...] medications. Follows with Dr. Peres, Urologist at [facility]. Is taking Proscar 5 mg daily. DM: [...] SURGICAL HISTORY OF 02/22/2016 Stent placement, 2. [facility] - Dr. King Family History FAMILY HISTORY [...] Lymph% 08/03/2021 64.9 Abs Lymph 08/03/2021 2.86 Alger% 08/03/2021 5.7 Abs Alger 08/03/2021 0.25 Eosin% 08/03/2021 5.9 Abs Eosin [...] ALBUMIN/CREAT RATIO RND UR 2. Atherosclerosis of grayling coronary 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 - ICD9: 414.01, [...] Past Histories independently gathered by the clinical administrative support assistant and the remaining scribed note [...] Belem Fierro Ma documented in this encounter [facility] 07-16-2021 History of Presen t illness Narrative This note was created using [employer]. Subjective John Contreras is a 85 year [...] SURGICAL HISTORY OF 02/22/2016 Stent placement, 2. [facility] - Dr. King FAMILY HISTORY Problem Relation [...] Griselda Zepeda PA-C documented in this encounter [facility] 07-11-2021 History of Presen t illness Narrative Images from the original note were not included. This note was created using [employer]. Subjective oJhn Contreras is a 85 year old male. HPI Patient presents with a chief complaint of a bug bite. He thinks he got bit on the left forearm yesterday. It is itchy. Not painful. No fever or chills. He denies taking anything [id number] orally for it. He did put Polysporin [...] SURGICAL HISTORY OF 02/22/2016 Stent placement, 2. [facility] - Dr. King FAMILY HISTORY Problem Relation [...] Griselda Zepeda PA-C documented in this encounter [facility] 07-11-2021 Instructions Griselda Zepeda PA-C - 07/11/2021 [...] symptoms may fill. documented in this encounter [facility] 06-24-2021 Miscellaneous Notes The following approved medication [...] daily with meals. EMMY: No Michael Cunha APRN.NUCLEAR POWERPLANT MECHANIC HELPER [employer] 03/09/21 NOV 08/10/21 Bety Mercedes Ma documented in this encounter [facility] Diagnosis Bug bite, initial encounter- Primary [facility]* Diagnosis Fall, initial encounter- Primary [facility]* Diagnosis Controlled type 2 diabetes mellitus without complication, without long-term current use of insulin (HCC)- Primary Atherosclerosis of grayling coronary 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 Thrombocytopenia (HCC) Thrombocytopenia, unspecified Hypothyroidism, acquired Unspecified hypothyroidism CLL (chronic lymphocytic leukemia) (HCC) Chronic lymphoid leukemia, without mention of having achieved remission Benign prostatic hyperplasia without lower urinary tract symptoms Memory changes Memory loss [facility]* Diagnosis Cough- Primary Sinobronchitis Unspecified sinusitis (chronic) [facility]* Diagnosis Hypothyroidism, unspecified type documented in this encounter [facility] note* Diagnosis Hypothyroidism, unspecified type Atherosclerosis of grayling coronary 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 documented in this encounter [facility] note* Diagnosis Pain of toe of left foot- Primary Pain in limb documented in this encounter [facility] note* Diagnosis Controlled type 2 diabetes mellitus without complication, without long-term current use of insulin (HCC)- Primary CLL (chronic lymphocytic leukemia) (HCC) Chronic lymphoid leukemia, without mention of having achieved remission Hypothyroidism, unspecified type Thrombocytopenia (HCC) Thrombocytopenia, unspecified Hypertension, essential Unspecified essential hypertension Atherosclerosis of grayling coronary 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 documented in this encounter [facility] note* Diagnosis Hammertoe of right foot- Primary Callus of toe [facility]* Diagnosis Type 2 diabetes mellitus with chronic kidney disease, without long-term current use of insulin, unspecified CKD stage (HCC)- Primary Hypothyroidism, unspecified type Hypertension, essential Unspecified essential hypertension Atherosclerosis of grayling coronary 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 Chronic kidney disease, stage 3a (HCC) CLL (chronic lymphocytic leukemia) (HCC) Chronic lymphoid leukemia, without mention of having achieved remission Thrombocytopenia (HCC) Thrombocytopenia, unspecified Dementia without behavioral disturbance (HCC) Dementia, unspecified, without behavioral disturbance Benign prostatic hyperplasia without lower urinary tract symptoms [facility] Diagnosis Forgetfulness- Primary Other general symptoms Weight loss Loss of weight Memory loss Chronic kidney disease, stage 3a (HCC) Hypothyroidism, acquired Unspecified hypothyroidism Type 2 diabetes mellitus with chronic kidney disease, without long-term current use of insulin, unspecified CKD stage (HCC) [facility] Diagnosis Forgetfulness- Primary Other general symptoms Memory loss [facility] Diagnosis Mild dementia with anxiety, 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[facility])- Primary JESSEE (generalized anxiety disorder) Generalized anxiety disorder [facility] Diagnosis Atherosclerosis of grayling coronary 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 [facility] Diagnosis Mild dementia with anxiety, 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[facility])- Primary JESSEE (generalized anxiety disorder) Generalized anxiety disorder Situational anxiety Other anxiety states [facility] Diagnosis Hospital discharge follow-up- Primary Other follow-up examination Acute cystitis with hematuria Acute cystitis Acute constipation Unspecified constipation Other specified hypotension [facility] Diagnosis Abdominal pain, unspecified abdominal location- Primary [facility] Diagnosis Mild dementia with anxiety, 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[facility]) [facility] Diagnosis Hospital discharge follow-up- Primary Other follow-up examination Hypotensive episode Hypotension, unspecified Urinary retention Retention of urine, unspecified Constipation, unspecified constipation type Acute on chronic anemia Gastroesophageal reflux disease without esophagitis Esophageal reflux Debility Debility, unspecified Hypothyroidism, acquired Unspecified hypothyroidism Controlled type 2 diabetes mellitus without complication, without long-term current use of insulin (HCC) Atherosclerosis of grayling coronary 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 [facility] Diagnosis Secondary infection of skin- Primary Other specified local infections of skin and subcutaneous tissue [facility] Diagnosis CLL (chronic lymphocytic leukemia) (HCC)- Primary Chronic lymphoid leukemia, without mention of having achieved remission Small lymphocytic lymphoma (HCC) Anemia, unspecified type Thrombocytopenia (HCC) Thrombocytopenia, unspecified documented in this encounter [facility] for referral (narrative)* Diagnostic Procedure Only (Urgent) - Closed Specialty Diagnoses / Procedures Referred By Contac t Referred To Contact XR IMAGING Diagnoses Fall, initial encounter Procedures XR HIP GENERAL 3V PELV/AP/LAT RIGHT RADEX HIP UNILATERAL WITH PELVIS 2-3 VIEWS Griselda Zepeda PA-C [address] [place] [address] Xr Imaging Referral ID Status Reason Start Date Expiration Date V isits Requested Visits Authorized [id number] Closed Auto-Generate d Referral 07/16/2021 08/15/2022 1 1 [facility] for referral (narrative)* Diagnostic Procedure Only (Routine) - Closed Specialty Diagnoses / Procedures Referred By Contac t Referred To Contact XR IMAGING Diagnoses Hammertoe of right foot Procedures XR FOOT GENERAL 3V AP/LAT/OBL RIGHT RADEX FOOT COMPLETE MINIMUM 3 VIEWS Lexi Blandon [address] [place] [address] Xr Imaging Referral ID Status Reason Start Date Expiration Date V isits Requested Visits Authorized [id number] Closed Auto-Generate d Referral 05/25/2022 06/24/2023 1 1 [facility] for referral (narrative)* Diagnostic Procedure Only (Routine) - Authorized Specialty Diagnoses / Procedures Referred By Contac t Referred To Contact US IMAGING Diagnoses CLL (chronic lymphocytic leukemia) (HCC) Small lymphocytic lymphoma (HCC) Anemia, unspecified type Thrombocytopenia (HCC) Procedures US ABD RIGHT UPPER QUADRANT US ABDOMINAL REAL TIME W/IMAGE LIMITED Chapin Dawn DO [address] [place] [address] [place] [address] Referral ID Status Reason Start Date Expiration Date Visits Requested Visits Authorized [id number] Authorized Auto-Generat ed Referral 04/01/2024 1 1 [facility] Summary Purpose Family History No Family History Records FoundNo Family History Records FoundNo Family History Records Found Advance Directives No Advanced Directives Records FoundDocuments on File Type Date Recorded Patient Information Systems Technician Expl anation Advance Directive(s) Advance Directive(s) 04/21/2020 9:19 AM Documents on File Type Date Recorded Patient Information Systems Technician Expl anation Advance Directive(s) Advance Directive(s) 04/21/2020 9:19 AM Documents on File Type Date Recorded Patient Information Systems Technician Expl anation Advance Directive(s) 04/21/2020 9:19 AM Documents on File Type Date Recorded Patient Information Systems Technician Expl anation Advance Directive(s) 04/21/2020 9:19 AM Reason for Referral Specialty Diagnoses / Procedures Referred By Contac t Referred To Contact Gerontology Diagnoses Forgetfulness Memory loss Procedures CONSULT TO GERIATRICS OFFICE/OUTPATIENT [facility] 60-74 MINUTES Herminio Gr MD [address] [place] [address] Referral ID Status Reason Start Date Expiration Date Visits Requested Visits Authorized [id number] Pending Review PCP Requested Referral 09/05/2022 09/05/2023 1 1 Specialty Diagnoses / Procedures Referred By Contac t Referred To Contact MR IMAGING Diagnoses Mild dementia with anxiety, 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HCC) Procedures MRI BRAIN WO IVCON MRI BRAIN BRAIN STEM W/O CONTRAST MATERIAL Juju Tim DO [address] [place] [id number] [facility] Referral ID Status Reason Start Date Expiration Date Visits Requested Visits Authorized [id number] Pending Review Auto-Generat ed Referral 10/14/2022 11/13/2023 1 1 Specialty Diagnoses / Procedures Referred By Contac t Referred To Contact MR IMAGING Diagnoses Mild dementia with anxiety, 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HCC) Procedures MRI BRAIN WO IVCON MRI BRAIN BRAIN STEM W/O CONTRAST MATERIAL Juju Tim DO [address] [place] [address] [place] [address] Referral ID Status Reason Start Date Expiration Date V isits Requested Visits Authorized [id number] Closed Auto-Generate d Referral 11/08/2022 03/19/2023 1 1 Additional Source Comments (unrecognized sect ion and content) No Status Records FoundNo Status Records FoundNo Status Records Found INFORMATION SOURCE (unrecogn ized section and content) DATE CREATED AUTHOR AUTHOR'S ORGANTAMMY ATION 12/23/2022 [facility] DATE CREATED AUTHOR AUTHOR'S ORGANIZ ATION 04/07/2023 [facility] Source Comments (unrecognize d section and content) In the event this informatio n is protected by the Federal Confidentiality of Alcohol and Drug Abuse Patient Records regulations: The Federal rules restrict any use of the information to criminally investigate or prosecute any alcohol or drug abuse patient.[facility] the event this information is protected by the Federal Confidentiality of Alcohol and Drug Abuse Patient Records regulations: The Federal rules restrict any use of the information to criminally investigate or prosecute any alcohol or drug abuse patient.[facility] HospitalIn the event this information is protected by the Federal Confidentiality of Alcohol and Drug Abuse Patient Records regulations: The Federal rules restrict any use of the information to criminally investigate or prosecute any alcohol or drug abuse patient.[facility] HospitalIn the event this information is protected by the Federal Confidentiality of Alcohol and Drug Abuse Patient Records regulations: The Federal rules restrict any use of the information to criminally investigate or prosecute any alcohol or drug abuse patient.[facility] HospitalIn the event this information is protected by the Federal Confidentiality of Alcohol and Drug Abuse Patient Records regulations: The Federal rules restrict any use of the information to criminally investigate or prosecute any alcohol or drug abuse patient.[facility] HospitalIn the event this information is protected by the Federal Confidentiality of Alcohol and Drug Abuse Patient Records regulations: The Federal rules restrict any use of the information to criminally investigate or prosecute any alcohol or drug abuse patient.[facility] HospitalIn the event this information is protected by the Federal Confidentiality of Alcohol and Drug Abuse Patient Records regulations: The Federal rules restrict any use of the information to criminally investigate or prosecute any alcohol or drug abuse patient.[facility] HospitalIn the event this information is protected by the Federal Confidentiality of Alcohol and Drug Abuse Patient Records regulations: The Federal rules restrict any use of the information to criminally investigate or prosecute any alcohol or drug abuse patient.[facility] HospitalIn the event this information is protected by the Federal Confidentiality of Alcohol and Drug Abuse Patient Records regulations: The Federal rules restrict any use of the information to criminally investigate or prosecute any alcohol or drug abuse patient.[facility] HospitalIn the event this information is protected by the Federal Confidentiality of Alcohol and Drug Abuse Patient Records regulations: The Federal rules restrict any use of the information to criminally investigate or prosecute any alcohol or drug abuse patient.[facility] HospitalIn the event this information is protected by the Federal Confidentiality of Alcohol and Drug Abuse Patient Records regulations: The Federal rules restrict any use of the information to criminally investigate or prosecute any alcohol or drug abuse patient.[facility] HospitalIn the event this information is protected by the Federal Confidentiality of Alcohol and Drug Abuse Patient Records regulations: The Federal rules restrict any use of the information to criminally investigate or prosecute any alcohol or drug abuse patient.[facility] HospitalIn the event this information is protected by the Federal Confidentiality of Alcohol and Drug Abuse Patient Records regulations: The Federal rules restrict any use of the information to criminally investigate or prosecute any alcohol or drug abuse patient.[facility] HospitalIn the event this information is protected by the Federal Confidentiality of Alcohol and Drug Abuse Patient Records regulations: The Federal rules restrict any use of the information to criminally investigate or prosecute any alcohol or drug abuse patient.[facility] HospitalIn the event this information is protected by the Federal Confidentiality of Alcohol and Drug Abuse Patient Records regulations: The Federal rules restrict any use of the information to criminally investigate or prosecute any alcohol or drug abuse patient.[facility] HospitalIn the event this information is protected by the Federal Confidentiality of Alcohol and Drug Abuse Patient Records regulations: The Federal rules restrict any use of the information to criminally investigate or prosecute any alcohol or drug abuse patient.[facility] HospitalIn the event this information is protected by the Federal Confidentiality of Alcohol and Drug Abuse Patient Records regulations: The Federal rules restrict any use of the information to criminally investigate or prosecute any alcohol or drug abuse patient.[facility] HospitalIn the event this information is protected by the Federal Confidentiality of Alcohol and Drug Abuse Patient Records regulations: The Federal rules restrict any use of the information to criminally investigate or prosecute any alcohol or drug abuse patient.[facility] HospitalIn the event this information is protected by the Federal Confidentiality of Alcohol and Drug Abuse Patient Records regulations: The Federal rules restrict any use of the information to criminally investigate or prosecute any alcohol or drug abuse patient.[facility] HospitalIn the event this information is protected by the Federal Confidentiality of Alcohol and Drug Abuse Patient Records regulations: The Federal rules restrict any use of the information to criminally investigate or prosecute any alcohol or drug abuse patient.[facility] HospitalIn the event this information is protected by the Federal Confidentiality of Alcohol and Drug Abuse Patient Records regulations: The Federal rules restrict any use of the information to criminally investigate or prosecute any alcohol or drug abuse patient.[facility] HospitalIn the event this information is protected by the Federal Confidentiality of Alcohol and Drug Abuse Patient Records regulations: The Federal rules restrict any use of the information to criminally investigate or prosecute any alcohol or drug abuse patient.[facility] HospitalIn the event this information is protected by the Federal Confidentiality of Alcohol and Drug Abuse Patient Records regulations: The Federal rules restrict any use of the information to criminally investigate or prosecute any alcohol or drug abuse patient.[facility] HospitalIn the event this information is protected by the Federal Confidentiality of Alcohol and Drug Abuse Patient Records regulations: The Federal rules restrict any use of the information to criminally investigate or prosecute any alcohol or drug abuse patient.[facility] HospitalIn the event this information is protected by the Federal Confidentiality of Alcohol and Drug Abuse Patient Records regulations: The Federal rules restrict any use of the information to criminally investigate or prosecute any alcohol or drug abuse patient.[facility] HospitalIn the event this information is protected by the Federal Confidentiality of Alcohol and Drug Abuse Patient Records regulations: The Federal rules restrict any use of the information to criminally investigate or prosecute any alcohol or drug abuse patient.[facility] HospitalIn the event this information is protected by the Federal Confidentiality of Alcohol and Drug Abuse Patient Records regulations: The Federal rules restrict any use of the information to criminally investigate or prosecute any alcohol or drug abuse patient.[facility] HospitalIn the event this information is protected by the Federal Confidentiality of Alcohol and Drug Abuse Patient Records regulations: The Federal rules restrict any use of the information to criminally investigate or prosecute any alcohol or drug abuse patient.[facility] HospitalIn the event this information is protected by the Federal Confidentiality of Alcohol and Drug Abuse Patient Records regulations: The Federal rules restrict any use of the information to criminally investigate or prosecute any alcohol or drug abuse patient.[facility] HospitalIn the event this information is protected by the Federal Confidentiality of Alcohol and Drug Abuse Patient Records regulations: The Federal rules restrict any use of the information to criminally investigate or prosecute any alcohol or drug abuse patient.[facility] HospitalIn the event this information is protected by the Federal Confidentiality of Alcohol and Drug Abuse Patient Records regulations: The Federal rules restrict any use of the information to criminally investigate or prosecute any alcohol or drug abuse patient.[facility] HospitalIn the event this information is protected by the Federal Confidentiality of Alcohol and Drug Abuse Patient Records regulations: The Federal rules restrict any use of the information to criminally investigate or prosecute any alcohol or drug abuse patient.[facility] HospitalIn the event this information is protected by the Federal Confidentiality of Alcohol and Drug Abuse Patient Records regulations: The Federal rules restrict any use of the information to criminally investigate or prosecute any alcohol or drug abuse patient.[facility] HospitalIn the event this information is protected by the Federal Confidentiality of Alcohol and Drug Abuse Patient Records regulations: The Federal rules restrict any use of the information to criminally investigate or prosecute any alcohol or drug abuse patient.[facility] HospitalIn the event this information is protected by the Federal Confidentiality of Alcohol and Drug Abuse Patient Records regulations: The Federal rules restrict any use of the information to criminally investigate or prosecute any alcohol or drug abuse patient.[facility] HospitalIn the event this information is protected by the Federal Confidentiality of Alcohol and Drug Abuse Patient Records regulations: The Federal rules restrict any use of the information to criminally investigate or prosecute any alcohol or drug abuse patient.[facility] HospitalIn the event this information is protected by the Federal Confidentiality of Alcohol and Drug Abuse Patient Records regulations: The Federal rules restrict any use of the information to criminally investigate or prosecute any alcohol or drug abuse patient.[facility] HospitalIn the event this information is protected by the Federal Confidentiality of Alcohol and Drug Abuse Patient Records regulations: The Federal rules restrict any use of the information to criminally investigate or prosecute any alcohol or drug abuse patient.[facility] HospitalIn the event this information is protected by the Federal Confidentiality of Alcohol and Drug Abuse Patient Records regulations: The Federal rules restrict any use of the information to criminally investigate or prosecute any alcohol or drug abuse patient.[facility] HospitalIn the event this information is protected by the Federal Confidentiality of Alcohol and Drug Abuse Patient Records regulations: The Federal rules restrict any use of the information to criminally investigate or prosecute any alcohol or drug abuse patient.[facility] Reason for Visit (unrecogniz ed section and [...] Geriatrics Depression f/u Reason Comments Follow Up [facility] follow up Reason Comments Patient Question Reason [...] Tim DO [address] [place] [address] [place] [address] Referral ID Status Reason Start Date Expiration Date V isits Requested Visits Authorized [id number] Closed Auto-Generate d Referral 11/08/2022 03/19/2023 1 1 Reason Comments [facility] Nursing Plan of Care Reason Comments Hospital Follow Up Reason Comments Wound Check had precancerous spo t removed on now spot is red and black in color Reason Comments Established Patient Care Teams (unrecognized sec tion and content) Fire Battalion Chief Relationship Specialty Start Date End Date Herminio Gr MD [address] [place] [address] PCP - General Family Practice 10/26/10 Fire Battalion Chief Relationship Specialty Start Date End Date Herminio Gr MD [address] [place] [address] PCP - General Family Practice 10/26/10 Fire Battalion Chief Relationship Specialty Start Date End Date Herminio Gr MD [address] [place] [address] PCP - General Family Practice 10/26/10 Fire Battalion Chief Relationship Specialty Start Date End Date Herminio Gr MD [address] [place] [address] PCP - General Family Practice 10/26/10 Fire Battalion Chief Relationship Specialty Start Date End Date Herminio Gr MD [address] [place] [address] PCP - General Family Practice 10/26/10 Fire Battalion Chief Relationship Specialty Start Date End Date Herminio Gr MD [address] [place] [address] PCP - General Family Practice 10/26/10 Fire Battalion Chief Relationship Specialty Start Date End Date Herminio Gr MD [address] [facility] [place] [address] PCP - General Family Practice 10/26/10 Fire Battalion Chief Relationship Specialty Start Date End Date Herminio Gr MD [address] [facility] [place] [address] PCP - General Family Practice 10/26/10 Fire Battalion Chief Relationship Specialty Start Date End Date Herminio Gr MD [address] [facility] [place] [address] PCP - General Family Medicine 10/26/10 Fire Battalion Chief Relationship Specialty Start Date End Date Herminio Gr MD [address] [facility] [place] [address] PCP - General Family Medicine 10/26/10 Fire Battalion Chief Relationship Specialty Start Date End Date Herminio Gr MD [address] [facility] [place] [address] PCP - General Family Medicine 10/26/10 Fire Battalion Chief Relationship Specialty Start Date End Date Herminio Gr MD [address] [facility] [place] [address] PCP - General Family Medicine 10/26/10 Fire Battalion Chief Relationship Specialty Start Date End Date Herminoi Gr MD [address] [facility] [place] [address] PCP - General Family Medicine 10/26/10 Fire Battalion Chief Relationship Specialty Start Date End Date Herminio Gr MD [address] [facility] [place] [address] PCP - General Family Medicine 10/26/10 Fire Battalion Chief Relationship Specialty Start Date End Date Herminio Gr MD [address] [facility] [place] [address] PCP - General Family Medicine 10/26/10 Fire Battalion Chief Relationship Specialty Start Date End Date Herminio Gr MD [address] [place] [address] PCP - General Family Medicine 10/26/10 Fire Battalion Chief Relationship Specialty Start Date End Date Herminio Gr MD [address] [place] [address] PCP - General Family Medicine 10/26/10 Fire Battalion Chief Relationship Specialty Start Date End Date Herminio Gr MD [address] [place] [address] PCP - General Family Medicine 10/26/10 Fire Battalion Chief Relationship Specialty Start Date End Date Herminio Gr MD [address] [place] [address] PCP - General Family Medicine 10/26/10 Fire Battalion Chief Relationship Specialty Start Date End Date Herminio Gr MD [address] [place] [address] PCP - General Family Medicine 10/26/10 Fire Battalion Chief Relationship Specialty Start Date End Date Herminio Gr MD [address] [place] [address] PCP - General Family Medicine 10/26/10 Fire Battalion Chief Relationship Specialty Start Date End Date Herminio Gr MD [address] [place] [address] PCP - General Family Medicine 10/26/10 Fire Battalion Chief Relationship Specialty Start Date End Date Herminio Gr MD [address] [facility] [place] [address] PCP - General Family Medicine 10/26/10 Fire Battalion Chief Relationship Specialty Start Date End Date Herminio Gr MD [address] [facility] [place] [address] PCP - General Family Medicine 10/26/10 Fire Battalion Chief Relationship Specialty Start Date End Date Herminio Gr MD [address] [facility] [place] [address] PCP - General Family Medicine 10/26/10 Fire Battalion Chief Relationship Specialty Start Date End Date Herminio Gr MD [address] [facility] [place] [address] PCP - General Family Medicine 10/26/10 Fire Battalion Chief Relationship Specialty Start Date End Date Herminio Gr MD [address] [facility] [place] [address] PCP - General Family Medicine 10/26/10 Fire Battalion Chief Relationship Specialty Start Date End Date Herminio Gr MD [address] [facility] [place] [address] PCP - General Family Medicine 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 [employer] provides no warranty or guarantee of the accuracy or completeness of information in this document.
[2023-04-12] MEDS: Vancomycin HCl 1,250 MG in 0.9% Normal Saline (250mL Bag) 250 ML 167 MG IV (19:40)
--- NOTE | 2023-04-12 20:22 | ED.RN ---
called to confirm fluids ordered and given to RN in PCU
--- NOTE | 2023-04-12 21:02 | PCM.RX.CS ---
Consult Antibiotic Management Pharmacy has been consulted to manage selected antibiotic: Vancomycin Type of Intervention Type of Consult: New start Suspected Infection Suspected Infection: Sepsis Labs Labs: Sodium 134 mmol/L (136-145) L 04/12/23 15:15 Potassium 4.1 mmol/L (3.5-5.1) 04/12/23 15:15 Chloride 103 mmol/L (98-107) 04/12/23 15:15 Carbon Dioxide 28.0 mmol/L (21.0-32.0) 04/12/23 15:15 Anion Gap 3 (5-15) L 04/12/23 15:15 BUN 21 mg/dL (7-18) H 04/12/23 15:15 Creatinine 1.12 mg/dL (0.70-1.30) 04/12/23 15:15 Est GFR (MDRD) Af Amer 80 mL/min (>60) 04/12/23 15:15 Est GFR (MDRD) Non-Af 66 mL/min (>60) 04/12/23 15:15 BUN/Creatinine Ratio 18.8 RATIO (10-20) 04/12/23 15:15 Glucose 155 mg/dL (74-106) H 04/12/23 15:15 Microbiology Microbiology: Microbiology 04/12/23 16:55 Mucosa - Nose SARS-CoV-2, Influenza & RSV (PCR) - Final Goal Trough Goal Trough: 15-20 mcg/mL Pharmacy Plan for Drug Dosing Pharmacy Plan for Drug Dosing: NEW START IV VANCOMYCIN Consulting Physician: Dr. Peralta Indication: Sepsis Goal Trough: 15-20 SrCr: 1.12 CrCl: 50 ml/min Comments: Patient had initial ED dose 04/12/23 @1940 Vancomycin Dose: 750mg IV Q12hr to start 04/13/23 @0800 Pending Level: 04/14/23 @0730 Pharmacy Service will continue to monitor and adjust dosing as required.
[2023-04-12] MEDS: Pantoprazole Sodium 40 MG Tablet PO (22:30)
[2023-04-12] MEDS: Atorvastatin Calcium 40 MG Tablet PO (22:30)
[2023-04-13] VITALS (8 sets, daily range): BP systolic 91–147; BP diastolic 50–70; PULSE 70–85; RESP 16–18; TEMP 36.4–37.7; O2SAT 93–97
[2023-04-13] MEDS: Levothyroxine 88 MCG Tablet PO (04:24)
[2023-04-13] MEDS: Cefepime HCl 2 GM in 0.9% Normal Saline (100mL MB+) 100 ML IV ×3 (04:24→19:38)
[2023-04-13 07:08] LABS: Hematocrit 28.8 % (40-54); Hemoglobin 9.8 g/dL (13.0-16.5); Mean Corpuscular Hgb 30.6 pg (27.0-32.0); Mean Platelet Vol. 8.8 fl (6.2-12.0); Platelet Count 180 K/mm3 (150-450); RBC Distribution Width CV 13.8 % (11.6-14.6); RBC Distribution Width SD 45.2 fl (35.1-43.9); White Blood Count 2.7 K/mm3 (4.4-11.0)
[2023-04-13 07:42] LABS: Anion Gap 1 (5-15); BUN 16 mg/dL (7-18); Calcium,Total 8.1 mg/dL (8.5-10.1); Chloride 110 mmol/L (98-107); Creatinine, Serum 0.76 mg/dL (0.70-1.30); EST Glomerular Filtration Rate 103 mL/min (>60); Est Glom Filt Rate - Afr Amer 125 mL/min (>60); Glucose 148 mg/dL (74-106); Potassium 3.9 mmol/L (3.5-5.1); Sodium Level 137 mmol/L (136-145)
--- NOTE | 2023-04-13 07:48 | PN.HOSP_ITS ---
Reason for Visit Reason for Visit: Diagnoses Sepsis, unspecified organism (04/12/23) Weakness (04/12/23) Other malaise (04/12/23) Subjective Subjective Patient is on 87-year-old gentleman sent from Dr Peres's office with fevers and confusion as well as frequency incontinence. An assessment of sepsis secondary to suspected cystitis made admitted to monitored floor for further management Objective Data Objective Data Vital Signs: Vital Signs Temp Pulse Resp BP Pulse Ox O2 Del Method O2 Flow Rate 99.8 F H 85 18 118/50 L 95 Nasal Cannula 4 04/13/23 02:20 04/13/23 02:20 04/13/23 02:20 04/13/23 02:20 04/13/23 02:20 04/13/23 02:20 04/13/23 02:20 Oxygen Flow Rate (L/min) 4 Oxygen Delivery Method Nasal Cannula Weight: 76.8 kg Body Mass Index (BMI) 24.3 Intake & Output: Intake and Output for Last 24 Hours 04/11/23 04/12/23 04/13/23 23:59 23:59 23:59 Intake Total 4675.00 / 4675.00 100 / 100 Output Total 1000 / 1000 Balance 4675.00 / 4275.00 -900 / -900 Lab / Micro Data 04/13/23 06:30 04/13/23 06:30 Labs: Laboratory Results - last 24 hr 04/12/23 15:15: WBC 3.7 L, RBC 3.72 L, Hgb 11.3 L, Hct 33.9 L, MCV 91.1, MCH 30.4, MCHC 33.3, RDW Std Deviation 46.4 H, RDW Coeff of Lamont 14.0, Plt Count 208, MPV 8.7, Immature Gran % (Auto) 1.300 H, Neut % (Auto) 19.8 L, Lymph % (Auto) 76.5 H, Leslie % (Auto) 1.3, Eos % (Auto) 0.3, Baso % (Auto) 0.8, Absolute Neuts (auto) 0.7 L, Absolute Lymphs (auto) 2.86, Nucleated RBC % 0, Differential Comment , PT 14.6, INR 1.1, APTT 26.4, Sodium 134 L, Potassium 4.1, Chloride 103, Carbon Dioxide 28.0, Anion Gap 3 L, BUN 21 H, Creatinine 1.12, Est GFR (MDRD) Af Amer 80, Est GFR (MDRD) Non-Af 66, BUN/Creatinine Ratio 18.8, Glucose 155 H, Lactic Acid 1.3, Calcium 8.9, Total Bilirubin 1.00, AST 29, ALT 23, Alkaline Phosphatase 97, Total Protein 6.7, Albumin 3.2, Globulin 3.5, Albumin/Globulin Ratio 0.9 04/12/23 16:11: Urine Color Yellow, Urine Clarity Clear, Urine pH 6.0, Ur Specific Duncan 1.020, Urine Protein 30 H, Urine Glucose (UA) Normal, Urine Ketones 5 H, Urine Occult Blood 10 H, Urine Nitrite Negative, Urine Bilirubin 1 H, Urine Urobilinogen 1 H, Ur Leukocyte Esterase Negative, Urine RBC 0-5 SEEN, Urine WBC 0 SEEN, Ur Squamous Epith Cells 0 SEEN, Urine Bacteria RARE, Urine Mucus 0 SEEN 04/13/23 06:30: WBC 2.7 L, RBC 3.20 L, Hgb 9.8 L, Hct 28.8 L, MCV 90.0, MCH 30.6, MCHC 34.0, RDW Std Deviation 45.2 H, RDW Coeff of Lamont 13.8, Plt Count 180, MPV 8.8, Sodium 137, Potassium 3.9, Chloride 110 H, Carbon Dioxide 26.0, Anion Gap 1 L, BUN 16, Creatinine 0.76, Estim Creat Clear Calc 69.70, Est GFR (MDRD) Af Amer 125, Est GFR (MDRD) Non-Af 103, BUN/Creatinine Ratio 21.0 H, Glucose 148 H, Calcium 8.1 L Micro: Microbiology 04/12/23 16:55 Mucosa - Nose SARS-CoV-2, Influenza & RSV (PCR) - Final Radiography Diagnostic Testing: Radiology Impression Chest X-Ray 04/12/23 15:45 IMPRESSION: No definite acute or significant abnormality seen. Electronically Signed: Jamal Mann MD at 16:19 EST , Physical Exam Narrative GENERAL: cooperative, tearful HEENT: Atraumatic; normocephalic EYES; Anicteric, Normal Conjunctiva NECK; supple, normal thyroid, RESPIRATORY: Diminished to auscultation CARDIOVASCULAR: Regular S1 S2, GI: soft, normoactive bowel sounds, : No Renal angle tenderness; EXTREMITIES: No edema, no clubbing, MUSCULOSKELETAL: no muscle wasting NEURO: Awake; no lateralizing signs. SKIN: No Rash PSYCH; Flat affect Assessment & Plan Assessment/Plan (1) Weakness: (2) Debility: (3) Sepsis without septic shock: PLAN: Plan Patient is on 87-year-old gentleman sent from Dr Peres's office with fevers and confusion as well as frequency incontinence. An assessment suspected cystitis made admitted to monitored floor for further management 1. Sepsis secondary to acute cystitis. Sepsis as evidenced by patient being leukopenic, Febrile with temperature of 101.5 on admission, with the presence of a suspected infection UTI as well as endorgan dysfunction (unexplained new changes in mental status) 2. Suspected cystitis ? Patient presented with urinary frequency incontinence as well as fever.Started on broad-spectrum antibiotic therapy with cefepime and vancomycin pending cultu re result 3. Physical deconditioning - Requested for PT OT eval and social services coordinator to assist with discharge planning 4. Dementia ? Complicating care 5. Anemia - Secondary to chronic disorder monitoring H&H and transfuse if patient becomes symptomatic or hemoglobin falls below 7 6. Coronary artery disease ? With previous PCI patient is on guideline directed medical therapy 7. Hypertension - Blood pressure controlled, home medications continued with dose adjustment as needed 8. Hypothyroidism - Patient is on levothyroxine home dose continued 9. Dyslipidemia -Patient is on statin therapy, continued at home dose 10. History of recent inguinal repair ? On 12/30/2022 11. DVT prophylaxis ? SC Lovenox Time spent in the patient's overall evaluation,decision-making process, review of diagnostic data, adjustment of management, discussion with other providers, nursing nursing and ancillary staff involved in patient's care documentation, 50 Minutes Charges/Coding Visit Charges Inpatient E&M: 43238 [facility] Hosp L3
[2023-04-13] MEDS: Vancomycin HCl 750 MG in 0.9% Normal Saline (250mL Bag) 250 ML 250 MG IV ×2 (09:10→19:38)
[2023-04-13] MEDS: Pantoprazole Sodium 40 MG Tablet PO ×2 (09:15→19:39)
[2023-04-13] MEDS: Finasteride 5 MG Tablet PO (09:15)
[2023-04-13] MEDS: Enoxaparin 40 MG/0.4 ML Syringe SC (09:15)
[2023-04-13] MEDS: Aspirin 81 MG TAB.CHEW PO (09:16)
--- NOTE | 2023-04-13 10:55 | CPS ---
patient is refusing to do his IS and PEP. He states he is not interested in doing it. I left the devices in his room on the counter, will approach at a later time
--- NOTE | 2023-04-13 12:22 | NURSING ---
Chapin, patients son called to check on pt. This RN was busy and told racing secretary I would call back. This RN attempted to call Chapin back but ended up leaving a message that I would try to call again later.
--- NOTE | 2023-04-13 14:49 | NURSING ---
Walking in the [facility] with therapy at this time.
--- NOTE | 2023-04-13 15:30 | CASEMGMT ---
RN ADAM called daughter Jennifer for initial transition planning/care coordination assessment as patient is confused. FREDI MEDINA introduced self and role at [facility]. Daughter willing to participate in assessment and is able to answer all questions appropriately. Care providers, pharmacy, and demographics verified. Daughter wishes for patient to discharge home to [facility], will monitor for HHC. Daughter states she has no further needs or concerns at this time. CM to follow for discharge planning needs that may arise. PCP: Maile Specialists: Larisa, urologist; CATRACHO, director of direct marketing; Jermain, floor coverer apprentice Preferred Pharmacy: [facility] retail Insurance: [employer] primetime Prescription Benefit: yes Living Will/HPOA: yes, daughter Elena Ness LNOK: daughters, son Living Arrangements: Patient is currently staying at son's single story home with son and DIL, 2 steps and railing to enter. Patient was independent at home. Transportation: daughters DME/HHC: Patient has shower chair, raised toilet, cane, walker at home. Patient has had [facility] in the past. Patient has been to TCU in the past. Disposition Plan: Patient to discharge home with family support and follow-up plans in place. Will monitor for HHC. Deirdre VEGA, RN, CM
[2023-04-13] MEDS: Atorvastatin Calcium 40 MG Tablet PO (19:39)
--- NOTE | 2023-04-13 22:47 | CPS ---
patient refuses IS/PEP
[2023-04-14] VITALS (8 sets, daily range): BP systolic 120–145; BP diastolic 68–93; PULSE 73–83; RESP 16–18; TEMP 36.2–37.4; O2SAT 88–96
[2023-04-14] MEDS: Cefepime HCl 2 GM in 0.9% Normal Saline (100mL MB+) 100 ML IV ×3 (03:37→20:50)
[2023-04-14] MEDS: Levothyroxine 88 MCG Tablet PO (03:38)
[2023-04-14 08:16] LABS: Absolute Lymphocyte Count 2.63 X10^3/uL (0.83-4.51); Absolute Neutrophil Count 0.5 X10^3/uL (2.0-7.7); Basophil# 0.02 X10^3/uL; Basophil% 0.6 % (0-1); Eosinophil# 0.07 X10^3/uL; Eosinophils% 2.1 % (0-5); Hematocrit 29.3 % (40-54); Hemoglobin 9.8 g/dL (13.0-16.5); Lymphocyte # 2.63 X10^3/ul (0.83-4.51); Mean Corp Hgb Conc 33.4 g/dL (32-36); Mean Corpuscular Hgb 30.2 pg (27.0-32.0); Mean Corpuscular Volume 90.4 fL (80-94); Mean Platelet Vol. 8.7 fl (6.2-12.0); Monocyte# 0.03 X10^3/uL; Monocyte% 0.9 % (0-10); NRBC Flagged by Analyzer 0 % (0-5); Neutrophil # 0.51 X10^3/uL (2.7-7.7); Neutrophil % 15.3 % (47-70); POSITIVE DIFFERENTIAL YES; Platelet Count 166 K/mm3 (150-450); RBC Distribution Width CV 13.9 % (11.6-14.6); RBC Distribution Width SD 45.8 fl (35.1-43.9); Red Blood Count 3.24 M/mm3 (4.6-6.2); White Blood Count 3.3 K/mm3 (4.4-11.0)
[2023-04-14 08:18] LABS: Differential Indicated SCAN CRITERIA MET
[2023-04-14 08:38] LABS: Anion Gap 6 (5-15); BUN 12 mg/dL (7-18); BUN/Creat Ratio 14.5 RATIO (10-20); Calcium,Total 8.1 mg/dL (8.5-10.1); Chloride 105 mmol/L (98-107); Creatinine, Serum 0.82 mg/dL (0.70-1.30); EST Glomerular Filtration Rate 94 mL/min (>60); Est Glom Filt Rate - Afr Amer 114 mL/min (>60); Glucose 142 mg/dL (74-106); Magnesium 2.1 mg/dL (1.6-2.6); Phosphorus 2.3 mg/dL (2.5-4.9); Potassium 3.5 mmol/L (3.5-5.1); Sodium Level 138 mmol/L (136-145)
[2023-04-14 08:42] LABS: Vancomycin, Trough Level 11.3 ug/mL (5.0-15.0)
--- NOTE | 2023-04-14 09:14 | PN.HOSP_ITS ---
Reason for Visit Reason for Visit: Diagnoses Sepsis, unspecified organism (04/12/23) Weakness (04/12/23) Other malaise (04/12/23) Subjective Subjective Patient seen had a relatively uneventful night. Urine and blood cultures ordered on admission still pending Objective Data Objective Data Vital Signs: Vital Signs Temp Pulse Resp BP Pulse Ox O2 Del Method O2 Flow Rate 97.8 F 80 16 145/72 H 94 Room Air 1 04/14/23 03:00 04/14/23 03:00 04/14/23 03:00 04/14/23 03:00 04/14/23 03:00 04/14/23 03:00 04/13/23 12:14 Oxygen Flow Rate (L/min) 1 Oxygen Delivery Method Room Air Weight: 76.8 kg Body Mass Index (BMI) 24.3 Intake & Output: Intake and Output for Last 24 Hours 04/12/23 04/13/23 04/14/23 23:59 23:59 23:59 Intake Total 4675.00 / 4675.00 1310 / 1310 100 / 100 Output Total 1350 / 1850 1100 / 1100 Balance 4675.00 / 4275.00 -40 / -540 -1000 / -1000 Lab / Micro Data 04/14/23 07:30 04/14/23 07:30 Labs: Laboratory Results - last 24 hr 04/14/23 07:30: WBC 3.3 L, RBC 3.24 L, Hgb 9.8 L, Hct 29.3 L, MCV 90.4, MCH 30.2, MCHC 33.4, RDW Std Deviation 45.8 H, RDW Coeff of Lamont 13.9, Plt Count 166, MPV 8.7, Immature Gran % (Auto) 2.100 H, Neut % (Auto) 15.3 L, Lymph % (Auto) 79.0 H, Lowndes % (Auto) 0.9, Eos % (Auto) 2.1, Baso % (Auto) 0.6, Absolute Neuts (auto) 0.5 L, Absolute Lymphs (auto) 2.63, Nucleated RBC % 0, Sodium 138, Potassium 3.5, Chloride 105, Carbon Dioxide 27.0, Anion Gap 6, BUN 12, Creatinine 0.82, Estim Creat Clear Calc 68.00, Est GFR (MDRD) Af Amer 114, Est GFR (MDRD) Non-Af 94, BUN/Creatinine Ratio 14.5, Glucose 142 H, Calcium 8.1 L, Phosphorus 2.3 L, Magnesium 2.1, Vancomycin Trough 11.3 Micro: Microbiology 04/12/23 16:55 Mucosa - Nose SARS-CoV-2, Influenza & RSV (PCR) - Final Physical Exam Narrative GENERAL: cooperative, tearful HEENT: Atraumatic; normocephalic EYES; Anicteric, Normal Conjunctiva NECK; supple, normal thyroid, RESPIRATORY: Diminished to auscultation CARDIOVASCULAR: Regular S1 S2, GI: soft, normoactive bowel sounds, : No Renal angle tenderness; EXTREMITIES: No edema, no clubbing, MUSCULOSKELETAL: no muscle wasting NEURO: Awake; no lateralizing signs. SKIN: No Rash PSYCH; Flat affect Assessment & Plan Assessment/Plan (1) Weakness: (2) Debility: (3) Sepsis without septic shock: PLAN: Plan Patient is on 87-year-old gentleman sent from Dr Peres's office with fevers and confusion as well as frequency incontinence. An assessment suspected cystitis made admitted to monitored floor for further management 1. Sepsis secondary to acute cystitis. Sepsis as evidenced by patient being leukopenic, Febrile with temperature of 101.5 on admission, with the presence of a suspected infection UTI as well as endorgan dysfunction (unexplained new changes in mental status) ? 04/14/2023 cultures sent on admission still pending 2. Suspected cystitis ? Patient presented with urinary frequency incontinence as well as fever.Started on broad-spectrum antibiotic therapy with cefepime and vancomycin pending culture result 3. Physical deconditioning - Requested for PT OT eval and social media community manager to assist with discharge planning 4. Dementia ? Complicating care 5. Anemia - Secondary to chronic disorder monitoring H&H and transfuse if patient becomes symptomatic or hemoglobin falls below 7 6. Coronary artery disease ? With previous PCI patient is on guideline directed medical therapy 7. Hypertension - Blood pressure controlled, home medications continued with dose adjustment as needed 8. Hypothyroidism - Patient is on levothyroxine home dose continued 9. Dyslipidemia -Patient is on statin therapy, continued at home dose 10. History of recent inguinal repair ? On 12/30/2022 11. DVT prophylaxis ? MD Lovenox Time spent in the patient's overall evaluation,decision-making process, review of diagnostic data, adjustment of management, discussion with other providers, nursing nursing and ancillary staff involved in patient's care documentation, 35 Minutes Charges/Coding Visit Charges Inpatient E&M: 12121 Subs Hosp L2
--- NOTE | 2023-04-14 09:36 | PCM.RX.CS ---
Consult Antibiotic Management Pharmacy has been consulted to manage selected antibiotic: Vancomycin Type of Intervention Type of Consult: Follow-up Suspected Infection Suspected Infection: Sepsis Prior Doses of Antibiotics Prior Doses of Antibiotics Received/Current Regimen: Presently on 750mg iv q12h. Labs Labs: Sodium 138 mmol/L (136-145) 04/14/23 07:30 Potassium 3.5 mmol/L (3.5-5.1) 04/14/23 07:30 Chloride 105 mmol/L (98-107) 04/14/23 07:30 Carbon Dioxide 27.0 mmol/L (21.0-32.0) 04/14/23 07:30 Anion Gap 6 (5-15) 04/14/23 07:30 BUN 12 mg/dL (7-18) 04/14/23 07:30 Creatinine 0.82 mg/dL (0.70-1.30) 04/14/23 07:30 Est GFR (MDRD) Af Amer 114 mL/min (>60) 04/14/23 07:30 Est GFR (MDRD) Non-Af 94 mL/min (>60) 04/14/23 07:30 BUN/Creatinine Ratio 14.5 RATIO (10-20) 04/14/23 07:30 Glucose 142 mg/dL (74-106) H 04/14/23 07:30 Vancomycin Trough 11.3 ug/mL (5.0-15.0) 04/14/23 07:30 Microbiology Microbiology: Microbiology 04/12/23 16:55 Mucosa - Nose SARS-CoV-2, Influenza & RSV (PCR) - Final Dosing Weight Weight used for dosin kg Estimated Creatinine Clearance Estimated Creatinine Clearance: 68ml/min Goal Trough Goal Trough: 15-20 mcg/mL Pharmacy Plan for Drug Dosing Pharmacy Plan for Drug Dosing: Trough today 12 hrs post dose was 11.3. Below desired goal range of 15-20. Recommend increasing dose to 1000mg iv q12h and get new trough before 4th dose of new regimen. Pharmacy Service will continue to monitor and adjust dosing as required. Follow-Up Labs Follow-Up Labs: Trough: Vancomycin (04.15.230 before 2200 dose)
[2023-04-14] MEDS: Finasteride 5 MG Tablet PO (10:11)
[2023-04-14] MEDS: Vancomycin IV 1,000 MG/200 ML BAG 200 MG IV ×2 (10:11→22:58)
[2023-04-14] MEDS: Aspirin 81 MG TAB.CHEW PO (10:13)
[2023-04-14] MEDS: Pantoprazole Sodium 40 MG Tablet PO ×2 (10:13→20:50)
[2023-04-14] MEDS: Enoxaparin 40 MG/0.4 ML Syringe SC (10:13)
[2023-04-14] MEDS: Acetaminophen 325 MG Tablet 650 MG PO (15:36)
--- NOTE | 2023-04-14 16:40 | CASEMGMT ---
RN CM in to discuss discharge needs with patient. Patient states he may be interested in C. CM will provide list and encouraged patient to discuss with family. Will continue to monitor progress with therapy.
--- NOTE | 2023-04-14 16:47 | CASEMGMT ---
Discharge Planning A list of?HH providers including quality and resource use data and consistent with the patient's preferred geographic region, medical needs, and insurance network was created in [employer] Guide.? This list was provided to the RN ADAM. Shelbie Andrea, Discharge Planning Asst.
[2023-04-14] MEDS: Atorvastatin Calcium 40 MG Tablet PO (20:50)
[2023-04-14] MEDS: 0.9% Saline Lock 10 ML Syringe IV (20:53)
[2023-04-15 03:00] VITALS: BP 144/74; PULSE 89; RESP 18; TEMP 37.3; O2SAT 92
[2023-04-15] MEDS: Levothyroxine 88 MCG Tablet PO (05:20)
[2023-04-15] MEDS: Cefepime HCl 2 GM in 0.9% Normal Saline (100mL MB+) 100 ML IV ×2 (05:20→13:28)
[2023-04-15 07:43] VITALS: O2SAT 96
[2023-04-15 08:00] LABS: Absolute Lymphocyte Count 2.97 X10^3/uL (0.83-4.51); Absolute Neutrophil Count 0.6 X10^3/uL (2.0-7.7); Basophil# 0.01 X10^3/uL; Basophil% 0.3 % (0-1); Eosinophil# 0.03 X10^3/uL; Eosinophils% 0.8 % (0-5); Hematocrit 28.7 % (40-54); Hemoglobin 9.7 g/dL (13.0-16.5); Lymphocyte # 2.97 X10^3/ul (0.83-4.51); Lymphocyte % 81.4 % (19-41); Mean Corp Hgb Conc 33.8 g/dL (32-36); Mean Corpuscular Hgb 30.2 pg (27.0-32.0); Mean Corpuscular Volume 89.4 fL (80-94); Mean Platelet Vol. 8.7 fl (6.2-12.0); Monocyte# 0.05 X10^3/uL; Monocyte% 1.4 % (0-10); NRBC Flagged by Analyzer 0 % (0-5); Neutrophil # 0.55 X10^3/uL (2.7-7.7); POSITIVE DIFFERENTIAL YES; POSITIVE MORPHOLOGY YES; Platelet Count 164 K/mm3 (150-450); RBC Distribution Width CV 13.8 % (11.6-14.6); RBC Distribution Width SD 45.7 fl (35.1-43.9); Red Blood Count 3.21 M/mm3 (4.6-6.2); White Blood Count 3.7 K/mm3 (4.4-11.0)
[2023-04-15 08:04] LABS: Differential Indicated SCAN CRITERIA MET
[2023-04-15 08:32] LABS: Anion Gap 4 (5-15); BUN 13 mg/dL (7-18); BUN/Creat Ratio 14.6 RATIO (10-20); Calcium,Total 8.1 mg/dL (8.5-10.1); Chloride 104 mmol/L (98-107); Creatinine, Serum 0.89 mg/dL (0.70-1.30); EST Glomerular Filtration Rate 86 mL/min (>60); Est Glom Filt Rate - Afr Amer 105 mL/min (>60); Estimated Creatinine Clearance 62.66 ml/min; Glucose 156 mg/dL (74-106); Potassium 3.4 mmol/L (3.5-5.1); Sodium Level 135 mmol/L (136-145)
--- NOTE | 2023-04-15 08:53 | PN.HOSP_ITS ---
Reason for Visit Reason for Visit: Diagnoses Sepsis, unspecified organism (04/12/23) Weakness (04/12/23) Other malaise (04/12/23) Subjective Subjective Patient cultures have so far remain negative to date. Plan is for patient to be discharged home Objective Data Objective Data Vital Signs: Vital Signs Temp Pulse Resp BP Pulse Ox O2 Del Method O2 Flow Rate 99.2 F H 89 18 144/74 H 96 Room Air 2 04/15/23 03:00 04/15/23 03:00 04/15/23 03:00 04/15/23 03:00 04/15/23 07:43 04/15/23 07:43 04/14/23 15:31 Oxygen Flow Rate (L/min) 2 Oxygen Delivery Method Room Air Weight: 76.8 kg Body Mass Index (BMI) 24.3 Intake & Output: Intake and Output for Last 24 Hours 04/13/23 04/14/23 04/15/23 23:59 23:59 23:59 Intake Total 1310 / 1310 920 / 920 300 / 300 Output Total 1350 / 1850 2920 / 2920 180 / 180 Balance -40 / -540 -1999 / -1999 120 / 120 Lab / Micro Data 04/15/23 07:39 04/15/23 07:39 Labs: Laboratory Results - last 24 hr 04/15/23 07:39: WBC 3.7 L, RBC 3.21 L, Hgb 9.7 L, Hct 28.7 L, MCV 89.4, MCH 30.2, MCHC 33.8, RDW Std Deviation 45.7 H, RDW Coeff of [place]ont 13.8, Plt Count 164, MPV 8.7, Immature Gran % (Auto) 1.100 H, Neut % (Auto) 15.0 L, Lymph % (Auto) 81.4 H, [place] % (Auto) 1.4, Eos % (Auto) 0.8, Baso % (Auto) 0.3, Absolute Neuts (auto) 0.6 L, Absolute Lymphs (auto) 2.97, Nucleated RBC % 0, Sodium 135 L, Potassium 3.4 L, Chloride 104, Carbon Dioxide 27.0, Anion Gap 4 L, BUN 13, Creatinine 0.89, Estim Creat Clear Calc 62.66, Est GFR (MDRD) Af Amer 105, Est GFR (MDRD) Non-Af 86, BUN/Creatinine Ratio 14.6, Glucose 156 H, Calcium 8.1 L Micro: Microbiology 04/12/23 16:11 Urine, Catheterized Urine Culture - Final Culture exhibits no growth. 04/12/23 16:55 Mucosa - Nose SARS-CoV-2, Influenza & RSV (PCR) - Final Physical Exam Narrative GENERAL: cooperative, HEENT: Atraumatic; normocephalic EYES; Anicteric, Normal Conjunctiva NECK; supple, normal thyroid, RESPIRATORY: Diminished to auscultation CARDIOVASCULAR: Regular S1 S2, GI: soft, normoactive bowel sounds, : No Renal angle tenderness; EXTREMITIES: No edema, no clubbing, MUSCULOSKELETAL: no muscle wasting NEURO: Awake; no lateralizing signs. SKIN: No Rash PSYCH; Flat affect Assessment & Plan Assessment/Plan (1) Weakness: (2) Debility: (3) Sepsis without septic shock: PLAN: Plan Patient is on 87-year-old gentleman sent from Dr Peres's office with fevers and confusion as well as frequency incontinence. An assessment suspected cystitis made admitted to monitored floor for further management 1. Sepsis secondary to acute cystitis. Sepsis as evidenced by patient being leukopenic, Febrile with temperature of 101.5 on admission, with the presence of a suspected infection UTI as well as endorgan dysfunction (unexplained new changes in mental status) ? 04/14/2023 cultures sent on admission still pending ? Patient cultures So far remain negative to date. 2. Suspected cystitis ? Patient presented with urinary frequency incontinence as well as fever.Started on broad-spectrum antibiotic therapy with cefepime and vancomycin pending cultu re result 3. Physical deconditioning - Requested for PT OT eval and social security assessor to assist with discharge planning 4. Dementia ? Complicating care 5. Anemia - Secondary to chronic disorder monitoring H&H and transfuse if patient becomes symptomatic or hemoglobin falls below 7 6. Coronary artery disease ? With previous PCI patient is on guideline directed medical therapy 7. Hypertension - Blood pressure controlled, home medications continued with dose adjustment as needed 8. Hypothyroidism - Patient is on levothyroxine home dose continued 9. Dyslipidemia -Patient is on statin therapy, continued at home dose 10. History of recent inguinal repair ? On 12/30/2022 11. DVT prophylaxis ? SC Lovenox Time spent in the patient's overall evaluation,decision-making process, review of diagnostic data, adjustment of management, discussion with other providers, nursing nursing and ancillary staff involved in patient's care documentation, 35 Minutes Charges/Coding Visit Charges Inpatient E&M: 18648 Subs Hosp L2
[2023-04-15 09:11] VITALS: BP 134/68; PULSE 74; RESP 18; TEMP 36.5; O2SAT 94
[2023-04-15] MEDS: Enoxaparin 40 MG/0.4 ML Syringe SC (09:14)
[2023-04-15] MEDS: Finasteride 5 MG Tablet PO (09:14)
[2023-04-15] MEDS: Pantoprazole Sodium 40 MG Tablet PO (09:14)
[2023-04-15] MEDS: Aspirin 81 MG TAB.CHEW PO (09:14)
--- NOTE | 2023-04-15 09:25 | DS.PCM_ITS ---
Providers Date of Admission: 04/12/23 Date of Discharge: 04/15/23 Primary Care Physician: Dr. Wagner Gr MD Reason For Visit: SEPSIS WITH UNCLEAR SOURCE Diagnosis Discharge Diagnosis (1) Weakness: Status: Acute Code(s): R53.1 - Weakness (2) Debility: Status: Acute Code(s): R53.81 - Other malaise (3) Sepsis without septic shock: Status: Acute Code(s): A41.9 - Sepsis, unspecified organism Plan Patient is on 87-year-old gentleman sent from Dr Peres's office with fevers and confusion as well as frequency incontinence. An assessment suspected cystitis made admitted to monitored floor for further management 1. Sepsis secondary to acute cystitis. Sepsis as evidenced by patient being leukopenic, Febrile with temperature of 101.5 on admission, with the presence of a suspected infection UTI as well as endorgan dysfunction (unexplained new changes in mental status) ? 04/14/2023 cultures sent on admission still pending ? Patient cultures So far remain negative to date. 2. Suspected cystitis ? Patient presented with urinary frequency incontinence as well as fever.Started on broad-spectrum antibiotic therapy with cefepime and vancomycin pending culture result 3. Physical deconditioning - Requested for PT OT eval and criminal justice social worker to assist with discharge planning 4. Dementia ? Complicating care 5. Anemia - Secondary to chronic disorder monitoring H&H and transfuse if patient becomes symptomatic or hemoglobin falls below 7 6. Coronary artery disease ? With previous PCI patient is on guideline directed medical therapy 7. Hypertension - Blood pressure controlled, home medications continued with dose adjustment as needed 8. Hypothyroidism - Patient is on levothyroxine home dose continued 9. Dyslipidemia -Patient is on statin therapy, continued at home dose 10. History of recent inguinal repair ? On 12/30/2022 11. DVT prophylaxis ? [place] Lovenox Time spent in the patient's overall evaluation,decision-making process, review of diagnostic data, adjustment of management, discussion with other providers, nursing nursing and ancillary staff involved in patient's care documentation, 35 Minutes Medications at Discharge Home Medications atorvastatin 40 mg tablet [address] Gr manages cholesterol #90 tabs 05/24/18 carvedilol 3.125 mg tablet 3.125 mg PO BID bp 01/29/20 dutasteride 0.5 mg capsule 0.5 mg PO DAILY prostate 12/08/22 levothyroxine 88 mcg tablet 88 mcg PO DAILY thyroid 12/26/22 acetaminophen 500 mg tablet 1,000 mg (2 x 500 mg) PO Q6H PRN PRN Pain Score 1-10 #0 tabs 01/26/23 aspirin 81 mg chewable tablet 81 mg PO BREAKFAST #0 tabs 01/26/23 pantoprazole 40 mg tablet,delayed release 40 mg PO BID 30 days #60 tabs 01/26/23 polyethylene glycol 3350 17 gram oral powder packet 17 g PO DAILY PRN bowels 04/12/23 cefdinir 300 mg capsule 300 mg PO BID #10 caps 04/15/23 Hospital Course Summary of Care Provided Minutes Spent on Discharge: 35 Physical Exam Narrative GENERAL: cooperative, HEENT: Atraumatic; normocephalic EYES; Anicteric, Normal Conjunctiva NECK; supple, normal thyroid, RESPIRATORY: Diminished to auscultation CARDIOVASCULAR: Regular S1 S2, GI: soft, normoactive bowel sounds, : No Renal angle tenderness; EXTREMITIES: No edema, no clubbing, MUSCULOSKELETAL: no muscle wasting NEURO: Awake; no lateralizing signs. SKIN: No Rash PSYCH; Flat affect Weight / BMI Weight Weight: 76.8 kg Body Mass Index (BMI) 24.3 ABG / Lab / Microbiology Data 04/15/23 07:39 04/15/23 07:39 Laboratory: Laboratory Results - last 24 hr 04/15/23 07:39: WBC 3.7 L, RBC 3.21 L, Hgb 9.7 L, Hct 28.7 L, MCV 89.4, MCH 30.2, MCHC 33.8, RDW Std Deviation 45.7 H, RDW Coeff of [place]ont 13.8, Plt Count 164, MPV 8.7, Immature Gran % (Auto) 1.100 H, Neut % (Auto) 15.0 L, Lymph % (Auto) 81.4 H, [place] % (Auto) 1.4, Eos % (Auto) 0.8, Baso % (Auto) 0.3, Absolute Neuts (auto) 0.6 L, Absolute Lymphs (auto) 2.97, Nucleated RBC % 0, Sodium 135 L, Potassium 3.4 L, Chloride 104, Carbon Dioxide 27.0, Anion Gap 4 L, BUN 13, Creatinine 0.89, Estim Creat Clear Calc 62.66, Est GFR (MDRD) Af Amer 105, Est GFR (MDRD) Non-Af 86, BUN/Creatinine Ratio 14.6, Glucose 156 H, Calcium 8.1 L Microbiology: Microbiology 04/12/23 16:11 Urine, Catheterized Urine Culture - Final Culture exhibits no growth. 04/12/23 16:55 Mucosa - Nose SARS-CoV-2, Influenza & RSV (PCR) - Final D/C Instructions Discharge Diet: No restrictions Discharge Activity: Return to Normal Activity Call your doctor if you observe: Fever of 101 or Higher, Shortness of breath, Fainting spells and Chest pain Meaningful Use Info Meaningful Use Diagnoses (Choose all that apply): None applicable Discharge Plan Admission Admit Date/Time: 04/12/23 18:49 Attending Provider: Lokesh Berry Primary Care Provider: Wagner Gr Consulting Providers: Vinayak Peralta Discharge Orders/Prescriptions Prescriptions: New cefdinir 300 mg capsule 300 mg PO BID Qty: 10 0RF Continued carvedilol 3.125 MG tablet 3.125 mg PO BID dutasteride 0.5 mg capsule 0.5 mg PO DAILY levothyroxine 88 mcg tablet 88 mcg PO DAILY acetaminophen 500 mg Tablet 1,000 mg PO Q6H PRN PRN (Reason: Pain Score 1-10) Qty: 0 0RF pantoprazole 40 mg Tablet,Delayed Release (Dr/Ec) 40 mg PO BID 30 Days Qty: 60 0RF aspirin 81 mg Tablet,Chewable 81 mg PO BREAKFAST Qty: 0 0RF polyethylene glycol 3350 17 gram Powder In Packet 17 g PO DAILY PRN (Reason: bowels) atorvastatin 40 mg tablet 40 mg PO QHS Qty: 90 3RF Referrals / Follow Up: Wagner Gr MD [Primary Care Provider] - 04/28/23 11:00 am Disposition Disposition (needs filled in before D/C Order can be placed): Home Health Service Charges/Coding Visit Charges Inpatient E&M: 22607 Disch Hosp >30min
[2023-04-15] MEDS: Vancomycin IV 1,000 MG/200 ML BAG 200 MG IV (09:56)
[2023-04-15 10:24] LABS: Differential Comment SCANNED
--- NOTE | 2023-04-15 10:46 | CASEMGMT ---
Addendum entered by Fanny Sanuders 04/15/23 11:33: Per Damon in [facility] Retail pharmacy, the Symbicort requires a PA (he states he is not able to see the # to call for PA and that it was sent to Dr Berry via electronic fax). Dr Berry made aware and states it is okay for pt to discharge without it. Damon states the chewable ASA and the generic mucinex is not covered by insurance d/t is OTC and the total cost of his other medications is $36.37. Per Damon, he ran pt's medications through [facility], but states the PRISCILLA crossover comes up as being ineligible. FREDI MEDINA placed call to registration who states it is still showing as pending and she is not able to verify it as active at this time. FREDI MEDINA to room. Pt made of above. He states he that $36.37 is a lot of money at this time, stating he does not have that, and states you might as well say it's $3,000 . Pt states his brother may be able to cover this cost, but that states, I hate to ask him to borrow that , but then he did give permission for FREDI MEDINA to call his brother. This RN ADAM placed call to Priyank costello, @ [phone]. He states he is willing/able to pay the $36.37 and states will call [facility] retail pharmacy now to pay for it. Pt made aware. Pt is aware that baby ASA and mucinex will need to be purchased OTC and he states is okay with this. He also states that he is currently using OTC Primatene inhaler and that he will use that for now until he is able to get the Symbicort. Pt denies having other discharge needs. Addendum entered by Fanny Saunders 04/15/23 11:05: Call placed to [facility] and left to notify them of referral and aware to speak w/son, Chapin. Original Note: FREDI MEDINA note: Pt being discharged home today. C list was provided to pt yesterday. FREDI MEDINA to room. Pt resting in bed. He states he has not looked over the list of providers yet and okay with FREDI MEDINA contacting his family to discuss this. FREDI MEDINA placed call to pt's daughter, Jennifer, who then got pt's other dtr, Elena, and son, Chapin, on the phone. They inquired about how pt is doing as far as getting up/ambulating. They were made aware pt ambulated w/use of WW w/therapy 04/13 50 ft w/min assist and that additional therapy is recommended. Chapin states he will be w/pt 10/10 and states can manage pt at home, although he (Chapin) is in a W/C himself. Questions answered re: HHC. He would like [facility] for pt and reviewed the [facility] providers on the list that was provided to pt. Chapin chooses [facility] as preference. He was made aware that VM would be left today re: referral and then [facility] would review the referral on Monday and that someone would be contacting him re: if they are able to accept. He voices understanding. Chapin and daughters deny having other discharge planning needs or concerns. Therapy to work w/pt today before discharging home. FREDI Weston, aware and is aware to call pt's daughter, Jossie, when pt is ready for discharge, as she will be the one taking pt home and would like RN to review d/c instructions w/her. Charlette VEGA RN CM
--- NOTE | 2023-04-15 11:05 | CASEMGMT ---
FREDI MEDINA note: Pt being discharged home today. [facility] list was provided to pt yesterday. FREDI MEDINA to room. Pt resting in bed. He states he has not looked over the list of providers yet and okay with FREDI MEDINA contacting his family to discuss this. FREDI MEDINA placed call to pt's daughter, Jennifer, who then got pt's other dtr, Elena, and son, Chapin, on the phone. They inquired about how pt is doing as far as getting up/ambulating. They were made aware pt ambulated w/use of WW w/therapy 04/13 50 ft w/min assist and that additional therapy is recommended. Chapin states he will be w/pt 10/10 and states can manage pt at home, although he (Chapin) is in a W/C himself. Questions answered re: HHC. He would like [facility] for pt and reviewed the [facility] providers on the list that was provided to pt. Chapin chooses [facility] as preference. He was made aware that VM would be left today re: referral and then [facility] would review the referral on Monday and that someone would be contacting him re: if they are able to accept. He voices understanding. Chapin and daughters deny having other discharge planning needs or concerns. Therapy to work w/pt today before discharging home. FREDI Weston, aware and is aware to call pt's daughter, Jossie, when pt is ready for discharge, as she will be the one taking pt home and would like RN to review d/c instructions w/her. Call placed to [facility] and left to notify them of referral and aware to speak w/son, Chapin. Charlette VEGA RN, CM
[2023-04-15] MEDS: 0.9% Saline Lock 10 ML Syringe IV (13:25)
[2023-04-15 14:20] VITALS: BP 134/71; PULSE 76; RESP 18; TEMP 36.8; O2SAT 94
--- NOTE | 2023-05-04 08:37 | CASEMGMT ---
Late entry: VM received from [facility] on 04-20-23 that HHC services were declined by pt/family. Charlette MACN RN CM
== END 2023-04-15 16:25 | disposition home health service (06) | DRG 872 ==
LOC: ED 19:06 → PCU 19:33
PROVIDERS: Admitting Provider Hospitalist; Emergency Provider Emergency Medicine; PCP Family Medicine; Referring Provider Emergency Medicine; Visit Provider Internal Medicine
DX: A41.9 Sepsis, unspecified organism (principal); N30.00 Acute cystitis without hematuria; E03.9 Hypothyroidism, unspecified; F03.90 Unspecified dementia, unspecified severity, without behavioral disturbance, psychotic disturbance, mood disturbance, and anxiety; E11.9 Type 2 diabetes mellitus without complications; I10 Essential (primary) hypertension; I25.10 Atherosclerotic heart disease of native coronary artery without angina pectoris; E78.00 Pure hypercholesterolemia, unspecified; H91.93 Unspecified hearing loss, bilateral; R53.81 Other malaise; N40.1 Benign prostatic hyperplasia with lower urinary tract symptoms; Z11.52 Encounter for screening for COVID-19; Z66 Do not resuscitate; Z88.0 Allergy status to penicillin; Z79.82 Long term (current) use of aspirin; Z79.890 Hormone replacement therapy; Z79.899 Other long term (current) drug therapy; Z87.891 Personal history of nicotine dependence; Z95.5 Presence of coronary angioplasty implant and graft
CPT/HCPCS: 36415; 71045; 80048; 80053; 80202; 81001; 83605; 83735; 84100; 85025; 85027; 85610; 85730; 87040; 87086; 87088; 87631; 93005; 97162; 97166; 97530; 97802; 99284; J7030; J7050; A4216

== ENCOUNTER 2023-09-26 19:06 | Inpatient (IN) | payer MEDICARE, SELFPAY ==
[2023-09-26 19:07] VITALS: BP 159/93; PULSE 85; RESP 18; TEMP 36.6; O2SAT 99; BMI 24.7
[2023-09-26 19:09] VITALS: BP 159/93; PULSE 85; RESP 18; TEMP 36.6; O2SAT 99
--- NOTE | 2023-09-26 19:34 | EX.ED.DYSGE1 ---
HPI History of Present Illness Chief Complaint: Cellulitis Narrative Narrative: 87-year-old male past medical history of dementia, hypothyroidism presents with pain, redness, and swelling of his left foot that he has had for the last 4 days. His history and physical is limited secondary to dementia. According to his family member, he got scratched by his cat on the left foot on of last week, approximately 6 days ago. He was seen in outside facility and put on doxycycline which he had taken for previous cat scratch in the past. However, his relative stopped this because he had 1 dose in the emergency department, and started shaking. He was changed to a cephalosporin secondary to a penicillin allergy by his primary care provider and has been taking that over the last 3 days. He complains of worsening foot pain, swelling, and redness. No fevers or chills, no nausea or vomiting, no other symptoms. [facility] Medical History Thrombocytopenia Acute on chronic anemia Type 2 diabetes mellitus with hyperglycemia Urinary retention Wears partial dentures Wears hearing aid Wears glasses Cancer Depression Anxiety Dementia Thyroid disease Arthritis High cholesterol Gastric reflux Former smoker History of echocardiogram Cardiology follow-up encounter Hard of hearing Memory deficit Pure hypercholesterolemia Essential hypertension Pneumonia due to COVID-19 virus Lymphoma Aneurysm of infrarenal abdominal aorta Left ventricular systolic dysfunction Stented coronary artery (~02/22/16) History of lateral wall myocardial infarction Atherosclerotic heart disease of [place] coronary artery without angina pectoris Type 2 diabetes mellitus Home Medications ?Medication ?Instructions ?Recorded ?Last Taken ?Type carvedilol 3.125 mg tablet 3.125 mg PO BID bp 01/29/20 01/04/23 History dutasteride 0.5 mg capsule 0.5 mg PO DAILY prostate 12/08/22 Unknown History levothyroxine 88 mcg tablet 88 mcg PO DAILY thyroid 12/26/22 12/30/22 History aspirin 81 mg chewable tablet 81 mg PO QPM heart [facility] 09/26/23 09/25/23 History cefuroxime axetil 500 mg tablet 500 mg PO BID 09/26/23 Unknown History sertraline 25 mg tablet 12.5 mg PO DAILY 09/26/23 Unknown History Allergy/AdvReac Type Severity Reaction Status Date / Time Penicillins Allergy Hives Verified 09/26/23 19:09 tree and shrub pollen Allergy Other Verified 09/26/23 19:09 lisinopril AdvReac Mild cough Verified 09/26/23 19:09 Family History Father , age 39 from [place] CAD (coronary artery disease) Myocardial infarction Sudden cardiac Mother Diabetes Surgical History S/P inguinal hernia repair Hx of bilateral cataract extraction Hx of tonsillectomy Hx of cystoscopy Presence of coronary angioplasty implant and graft (~02/22/16) History of appendectomy History of left heart catheterization Social History household members: none Smoking Status: Former smoker how long ago did patient quit smokin years ago alcohol intake: current alcohol intake frequency: a few times a week Alcohol type: beer substance use type: does not use caffeine: Yes Type: coffee Number of servings: 2 ROS ROS ED ROS Narrative Constitutional: No fever, no chills. HEENT: No sore throat. No neck pain. No loss of vision. No rhinorrhea. Cardiovascular: No chest pain. No palpitations. No pedal edema. Respiratory: No cough, no shortness of breath. Abdominal: No abdominal pain. No nausea. No vomiting. Genitourinary: No dysuria. No hematuria. Musculoskeletal: No myalgias. Positive swelling and pain left foot. Neurologic: No headaches. No dizziness. No lightheadedness. Skin: No rash. Positive for redness to left foot. Psychiatric: No depression. No anxiety. EXAM Physical Exam Narrative Exam Narrative: Afebrile. Vital signs noted. Nontoxic-appearing. HEENT: Normocephalic. Atraumatic. PERRL, EOMI. Neck soft and supple. No point tenderness or step off. Cardiovascular: Regular rate and rhythm. No murmurs, rubs, or gallops appreciated. Respiratory: No tachypnea. Lungs clear to auscultation bilaterally. Gastrointestinal: Abdomen soft, nontender, with normoactive bowel sounds. No rebound or guarding. Neurological: Awake. Alert. Nonfocal, nonlateralizing. Skin: No rash. Positive erythema diffusely left foot. No pallor. Area of excoriation consistent with cat scratch on dorsum of left foot. Musculoskeletal: Positive left pedal edema. Full range of motion extremities. Palpable dorsalis pedis pulse, left. Positive erythema to level of left ankle. Const Vital Signs: 09/26/23 19:07 09/26/23 19:09 09/26/23 20:57 Temperature 97.8 F 97.8 F 97.9 F Temperature Source Temporal Temporal Temporal Pulse Rate 85 85 68 Respiratory Rate 18 18 17 Blood Pressure 159/93 H 159/93 H 170/79 H Blood Pressure Mean 115 115 109 Pulse Ox 99 99 90 Oxygen Delivery Method Room Air Room Air Room Air MDM MDM MDM Narrative Medical decision making narrative: Concern is for cellulitis of left foot with outpatient treatment failure with cephalosporin. Patient is not showing signs of SIRS currently, but baseline laboratories will be obtained as well as lactic acid. I started him on clindamycin 600 mg intravenously. Additionally, I did not obtain blood cultures because he has already been on antibiotics and he is not hypotensive. I do feel that he may require admission given that he has been on 3 to 4 days of antibiotics and his cellulitis of his left foot is getting worse. I reviewed his laboratory work and he has neutropenia with a WBC count of 4.0, but this appears to be chronic, hemoglobin stable at 11.3, platelet count low at 103. Patient has fluctuating thrombocytopenia and has had thrombocytopenia in the past. Reviewed with electrolyte panel reveals a BUN of 26 with creatinine 1.06, glucose elevated at 115 with anion gap low at 3 so I do not think that he has a diabetic ketoacidosis. ALT is slightly low at 14 which I think is nonspecific. Lactic acid is normal at 0.9. At this point in time, given his outpatient treatment failure, I discussed patient with Dr. Madelaine Herrera for admission to the medical surgical floor. Patient is in stable condition. History & Record Review Discussion w/independent historian: Patient and Family Lab Data Attestation: I reviewed the patient's lab results. Labs: Laboratory Results - last 24 hr 09/26/23 19:50 WBC 4.0 L RBC 3.72 L Hgb 11.3 L Hct 34.1 L MCV 91.7 MCH 30.4 MCHC 33.1 RDW Std Deviation 47.7 H RDW Coeff of [place] 14.1 Plt Count 103 L MPV 9.7 Immature Gran % (Auto) 0.800 Neut % (Auto) 16.0 L Lymph % (Auto) 75.7 H [place] % (Auto) 5.0 Eos % (Auto) 1.5 Baso % (Auto) 1.0 Absolute Neuts (auto) 0.6 L Absolute Lymphs (auto) 3.02 Nucleated RBC % 0 Differential Comment SEE COMMENT Atypical Lymphocytes 1+ Platelet Estimate MOD DEC RBC Morphology N CHROM Anisocytosis RARE Macrocytosis RARE Ovalocytes RARE Sodium 138 Potassium 4.2 Chloride 106 Carbon Dioxide 29.0 Anion Gap 3 L BUN 26 H Creatinine 1.06 Estim Creat Clear Calc 52.61 Est GFR (MDRD) Af Amer 85 Est GFR (MDRD) Non-Af 70 BUN/Creatinine Ratio 24.5 H Glucose 115 H Lactic Acid 0.9 Calcium 8.7 Total Bilirubin 0.60 AST 27 ALT 14 L Alkaline Phosphatase 91 Total Protein 6.5 Albumin 3.2 Globulin 3.3 Albumin/Globulin Ratio 1.0 Management Discussion w/another healthcare provider: Hospitalist (Dr. Herrera) Discharge Plan Dx/Rx/DC Orders Clinical Impression: Cellulitis of left foot, Infection of cat scratch wound, Failure of outpatient treatment Disposition Disposition: Acute Care [facility]
[2023-09-26] MEDS: Clindamycin 600 MG/50 ML BAG 100 MG IV (19:57)
[2023-09-26 20:03] LABS: Absolute Lymphocyte Count 3.02 X10^3/uL (0.83-4.51); Absolute Neutrophil Count 0.6 X10^3/uL (2.0-7.7); Basophil# 0.04 X10^3/uL; Eosinophil# 0.06 X10^3/uL; Eosinophils% 1.5 % (0-5); Hematocrit 34.1 % (40-54); Hemoglobin 11.3 g/dL (13.0-16.5); Lymphocyte # 3.02 X10^3/ul (0.83-4.51); Lymphocyte % 75.7 % (19-41); Mean Corp Hgb Conc 33.1 g/dL (32-36); Mean Corpuscular Hgb 30.4 pg (27.0-32.0); Mean Corpuscular Volume 91.7 fL (80-94); Mean Platelet Vol. 9.7 fl (6.2-12.0); NRBC Flagged by Analyzer 0 % (0-5); Neutrophil # 0.64 X10^3/uL (2.7-7.7); POSITIVE DIFFERENTIAL YES; POSITIVE MORPHOLOGY YES; Platelet Count 103 K/mm3 (150-450); RBC Distribution Width CV 14.1 % (11.6-14.6); RBC Distribution Width SD 47.7 fl (35.1-43.9); Red Blood Count 3.72 M/mm3 (4.6-6.2)
[2023-09-26 20:18] LABS: AST(SGOT) 27 U/L (15-37); Alanine Aminotransfer ALT/SGPT 14 U/L (16-61); Albumin, Serum 3.2 g/dL (3.2-5.0); Alkaline Phosphatase 91 U/L (45-117); Anion Gap 3 (5-15); BUN 26 mg/dL (7-18); BUN/Creat Ratio 24.5 RATIO (10-20); Calcium,Total 8.7 mg/dL (8.5-10.1); Chloride 106 mmol/L (98-107); Creatinine, Serum 1.06 mg/dL (0.70-1.30); EST Glomerular Filtration Rate 70 mL/min (>60); Est Glom Filt Rate - Afr Amer 85 mL/min (>60); Estimated Creatinine Clearance 52.61 ml/min; Globulin 3.3 g/dL (2.2-4.2); Glucose 115 mg/dL (74-106); Potassium 4.2 mmol/L (3.5-5.1); Protein, Total 6.5 g/dL (6.4-8.2); Sodium Level 138 mmol/L (136-145)
[2023-09-26 20:20] LABS: Differential Indicated SCAN CRITERIA MET
[2023-09-26 20:32] LABS: Lactic Acid 0.9 mmol/L (0.4-1.9)
[2023-09-26 20:52] LABS: Atypical Lymphocyte 1+ %; Platelet Estimate MOD DEC (ADEQ)
[2023-09-26 20:53] LABS: Anisocytosis RARE; Macrocytosis RARE; Ovalocyte RARE; Red Cell Morphology N CHROM NORMAL (NORM C&C)
[2023-09-26 20:57] VITALS: BP 170/79; PULSE 68; RESP 17; TEMP 36.6; O2SAT 90
--- NOTE | 2023-09-26 20:57 | HP.PCM.HOS_ITS ---
HPI - General General Date of Admission: 09/26/23 Date of Service: 09/26/23 Chief Complaint: Worsening L foot cat scratch/? bite HPI Narrative The patient is an 87 y/o M w/ PMHx: Chart Hx lymphoma/CLL, history of bladder mass/? bladder cancer with chronic pancytopenia/neutropenia, Known AAA, CKD unclear stage, Chronic anemia, Hypothyroidism, BPH, CAD s/p PCI 2015, HTN, HLD, Dementia unclear type with unclear behavioral disturbance history with associated chronic memory deficit, Diabetes mellitus type II, GERD, BPH, Former tobacco use who presents to the [facility] ED on 09/26/23 with history of recent cat scratch versus possibly also bite as patient is uncertain to the left foot the of the week prior prompting ED evaluation with most recent assessments for Monday prior to current presentation [facility] with prescription for cefdinir initiated although from report initially had been given dose IV doxycycline in the ED prior to discharge but was transitioned secondary to shaking now with increasing pain, redness and edema x 4 days despite the abx. Patient upon evaluation notes a dull aching throb in the left foot reporting his pain currently 8 out of 10 in severity. He notes he has been tolerating oral intake with no nausea or emesis and family denies any fevers or chills associated. Workup in the ED included T97.8, heart rate 85, BP 159/93, respiratory rate 18, 99% on room air, B CBC with WC 4.0, 11.3, MCV 91.7, platelet 103 with ANC 0.6 MP with BUN/creatinine 26/1.06, GFR 70, glucose 115, hepatic profile unremarkable, lactic acid 0.9. In the ED patient ministered clindamycin 600 mg IV x 1. PFSH Medical History Thrombocytopenia Acute on chronic anemia Type 2 diabetes mellitus with hyperglycemia Urinary retention Wears partial dentures Wears hearing aid Wears glasses Cancer Depression Anxiety Dementia Thyroid disease Arthritis High cholesterol Gastric reflux Former smoker History of echocardiogram Cardiology follow-up encounter Hard of hearing Memory deficit Pure hypercholesterolemia Essential hypertension Pneumonia due to COVID-19 virus Lymphoma Aneurysm of infrarenal abdominal aorta Left ventricular systolic dysfunction Stented coronary artery (~02/22/16) History of lateral wall myocardial infarction Atherosclerotic heart disease of [place] coronary artery without angina pectoris Type 2 diabetes mellitus Home Medications ?Medication ?Instructions ?Recorded ?Last Taken ?Type carvedilol 3.125 mg tablet 3.125 mg PO BID bp 01/29/20 01/04/23 History dutasteride 0.5 mg capsule 0.5 mg PO DAILY prostate 12/08/22 Unknown History levothyroxine 88 mcg tablet 88 mcg PO DAILY thyroid 12/26/22 12/30/22 History aspirin 81 mg chewable tablet 81 mg PO QPM heart health 09/26/23 09/25/23 History cefuroxime axetil 500 mg tablet 500 mg PO BID 09/26/23 Unknown History sertraline 25 mg tablet 12.5 mg PO DAILY 09/26/23 Unknown History Allergy/AdvReac Type Severity Reaction Status Date / Time Penicillins Allergy Hives Verified 09/26/23 19:09 tree and shrub pollen Allergy Other Verified 09/26/23 19:09 lisinopril AdvReac Mild cough Verified 09/26/23 19:09 Family History Father , age 39 from [place] CAD (coronary artery disease) Myocardial infarction Sudden cardiac Mother Diabetes Surgical History S/P inguinal hernia repair Hx of bilateral cataract extraction Hx of tonsillectomy Hx of cystoscopy Presence of coronary angioplasty implant and graft (~02/22/16) History of appendectomy History of left heart catheterization Social History (Updated 09/26/23 @ 21:[address] Madelaine Herrera MD) household members: children Smoking Status: Former smoker how long ago did patient quit smokin years ago alcohol intake: current alcohol intake frequency: a few times a week Alcohol type: beer substance use type: does not use caffeine: Yes Type: coffee Number of servings: 2 ROS ROS Narrative Admission Review of Systems: CONSTITUTIONAL: No weight loss, fever, chills. + weakness or fatigue. HEENT: Eyes: No visual loss, blurred vision, double vision or yellow sclerae. Ears, Nose, Throat: No hearing loss, sneezing, congestion, runny nose or sore throat. SKIN: + LLE erythema, cat bite/scratch, occasional staged ecchymoses. CARDIOVASCULAR: No chest pain, chest pressure or chest discomfort, palpitations, edema, orthopnea, syncopal events. RESPIRATORY: No shortness of breath, cough or sputum, wheezing, hemoptysis. GASTROINTESTINAL: No anorexia, nausea, vomiting or diarrhea, abdominal pain, melena, BRBPR. GENITOURINARY: No dysuria, frequency, urgency or retention. NEUROLOGICAL: + Chronic underlying dementia with memory impairment. No headache, dizziness, syncope, paralysis, ataxia, numbness or tingling in the extremities, focal weakness, change in bowel or bladder control, seizure. MUSCULOSKELETAL: + muscle, back pain, joint pain or stiffness. HEMATOLOGIC: + Chronic anemia, easy bleeding/bruising. LYMPHATICS: No enlarged nodes. No history of splenectomy. PSYCHIATRIC: No history of depression or anxiety. ENDOCRINOLOGIC: No reports of sweating, cold or heat intolerance. No polyuria or polydipsia. ALLERGIES: + History of hives. Vital Signs Vital Signs Vital Signs: 09/26/23 19:07 09/26/23 19:09 Temperature 97.8 F 97.8 F Temperature Source Temporal Temporal Pulse Rate 85 85 Respiratory Rate 18 18 Blood Pressure 159/93 H 159/93 H Blood Pressure Mean 115 115 Pulse Ox 99 99 Oxygen Delivery Method Room Air Room Air Weight Weight: 172 lb 11.2 oz Body Mass Index (BMI) 24.7 Physical Exam Narrative Physical Examination: General: Awake, alert, oriented to self and some recent events but does have underlying dementia, appears baseline per discussion with family, remains cooperative, seated upright in the ED bed with no acute distress, notes aching to the L foot, rated 8/10 in severity. Skin: Normal color, normal turgor, no icterus, no cyanosis except LLE with erythema to the dorsal foot wrapping upon around the ankle with increased warm, 2+ pitting focal edema around the ankle, scratches/bite fernandez but no purulent drainage noted, tender to palpation, occasional staged ecchymoses noted. HEENT: AT/NC, EOMI, PERRLA, mildly dry MM, no carotid bruits or JVD noted, hard of hearing. Lungs: Diminished, greater bases, poor effort, no density distress, no rales, ronchi or wheezing. Heart: Regular rate and rhythm; no gallop, rub audible. Abdomen: Soft, NTTP, ND, hyperactive BS, no HSM. Extremities: No cyanosis, no clubbing, LLE peripheral ankle edema as noted, see skin. Neurological: Patient awake, alert, oriented as noted, cognitive function near baseline although does have underlying dementia with memory deficits of note; pupils equally reactive to light and accommodation, cranial nerves grossly normal, moving all 4 extremities, no focal deficits, strength moderately to severely globally decreased secondary to acute presentation complicated by underlying comorbidities. Psychiatric: Affect appears fatigued, no acute evidence of depressive or anxiety feelings. Results Lab / Micro Data 09/26/23 19:50 09/26/23 19:50 Labs: Laboratory Results - last 24 hr 09/26/23 19:50: WBC 4.0 L, RBC 3.72 L, Hgb 11.3 L, Hct 34.1 L, MCV 91.7, MCH 30.4, MCHC 33.1, RDW Std Deviation 47.7 H, RDW Coeff of Lamont 14.1, Plt Count 103 L, MPV 9.7, Immature Gran % (Auto) 0.800, Neut % (Auto) 16.0 L, Lymph % (Auto) 75.7 H, [place] % (Auto) 5.0, Eos % (Auto) 1.5, Baso % (Auto) 1.0, Absolute Neuts (auto) 0.6 L, Absolute Lymphs (auto) 3.02, Nucleated RBC % 0, Differential Comment SEE COMMENT, Atypical Lymphocytes 1+, Platelet Estimate MOD DEC, RBC Morphology N CHROM, Anisocytosis RARE, Macrocytosis RARE, Ovalocytes RARE, Sodium 138, Potassium 4.2, Chloride 106, Carbon Dioxide 29.0, Anion Gap 3 L, BUN 26 H, Creatinine 1.06, Estim Creat Clear Calc 52.61, Est GFR (MDRD) Af Amer 85, Est GFR (MDRD) Non-Af 70, BUN/Creatinine Ratio 24.5 H, Glucose 115 H, Lactic Acid 0.9, Calcium 8.7, Total Bilirubin 0.60, AST 27, ALT 14 L, Alkaline Phosphatase 91, Total Protein 6.5, Albumin 3.2, Globulin 3.3, Albumin/Globulin Ratio 1.0 Assessment & Plan Assessment/Plan (1) Cellulitis: PLAN: Plan The patient is an 87 y/o M w/ PMHx: Chart Hx lymphoma/CLL, history of bladder mass/? bladder cancer with chronic pancytopenia/neutropenia, Known AAA, CKD unclear stage, Chronic anemia, Hypothyroidism, BPH, CAD s/p PCI 2015, HTN, HLD, Dementia unclear type with unclear behavioral disturbance history with associated chronic memory deficit, Diabetes mellitus type II, GERD, BPH, Former tobacco use who presents to the [facility] ED on 09/26/23 with history of recent cat scratch to the left foot the of the week prior prompting ED evaluation with most recent assessments for Monday prior to current presentation [facility] with prescription for cefdinir initiated although from report initially had been given dose IV doxycycline in the ED prior to discharge but was transitioned secondary to shaking now with increasing pain, redness and edema x 4 days despite the abx. #1. Acute Left Foot/Left Lower Extremity Cellulitis, Failed outpatient Abx therapy secondary to recent Cat scratch/? possible Cat Bite: Will admit to [facility], given poor historian with underlying dementia to be cautious will maintain on IV rocephin 2 gm IV qd and IV flagyl 500 mg q 8h, will obtain ESR/CRP, if any onset wound discharge would obtain Wound Cx/Wound MRSA PCR, plan repeat CBC in AM, continue affected extremity elevation above heart when seated and in bed, monitor erythema outline with VS checks, low threshold to involve podiatry/ID if worsening appearance, PT/OT/CM consultation for discharge planning. #2. Chart reported history of lymphoma/CLL, history of bladder mass/? bladder cancer with chronic pancytopenia, neutropenia: Unclear exact history, initial bladder mass noted with findings on CT 01/16/2020, status post remote resection and TURP, additional records also noting 2013 lymphoma with possible Bx submandibular region following with Dr. Dawn at that time. Admission CBC with WC 4, hemoglobin 11.3, platelet count 103 with ANC 0.6 with similar previous labs, will continue to closely trend CBC. #3. Infrarenal AAA: Last noted CT imaging noting aneurysm 12/23/2022 with noted distal abdominal aortic aneurysm stable, continue to follow outpatient. #4. CAD: Status post PCI 2015, will continue aspirin, statin, Coreg, noted allergy to lisinopril although cough noted and not on ARB per current list, encourage continued follow-up with cardiology as previously arranged. #5. Diabetes mellitus type II: From current list does not appear to be on medication but clarifying, most recent hemoglobin A1c 6.3%, until clarified will maintain on ADA diet, accu checks w/ ISS. Will obtain HgbA1c given #1. #6. Dementia unclear type with unclear behavioral disturbance history with associated chronic memory deficit: Does not appear to be on any regimen. Complicates presentation, maintain on fall precautions, PT/OT/case management consulted for discharge planning. #7. Chronic Kidney Disease Stage unclear with GFR trending stage II-III: Admission BUN/Cr 26/1.06, GFR 70, baseline renal function , baseline GFR appears to primarily be 60-80 but occasionally has been above 90, repeat BMP in AM to further elucidate. #8. Hypertension: Continue home regimen including Coreg with hold parameters as needed, PRN hydralazine. #9. Hyperlipidemia: We will continue patient on statin therapy. #10. Chronic normocytic anemia: Admission hemoglobin 11.3, MCV 91.7, prior baseline primarily 9-10, will continue to trend. #11. GERD: We will continue patient on PPI. #12. BPH with issues with chronic urinary retention: We will continue patient home dutasteride home regimen, following with Dr. Peres. #13. Hypothyroidism: We will continue patient home levothyroxine regimen. #14. Former tobacco use: Encourage continued tobacco cessation. #15. DVT prophylaxis: Lovenox. #16. CODE status: Patient BREEZY is his daughter who is present and living will is currently in place. Discussed CODE status at length including difference between FULL code, DNR-CCA and DNR-CC status. Following discussions about the differences in these status, requested DNR-CCA, no intubation status. Advanced Care Planning Face to Face Time: 16 minutes. Charges/Coding Visit Charges Inpatient E&M: 00870 Init Hosp L3 Procedures Hospitalists Procedures: 59615 Advncd Care Plan 30 Min
[2023-09-26 21:07] VITALS: BP 170/79; PULSE 68; RESP 17; TEMP 36.6; O2SAT 91
[2023-09-26 21:57] LABS: Erythrocyte Sedimentation Rate 30 mm/hr (0-20)
[2023-09-26 21:59] VITALS: BP 147/82; PULSE 63; RESP 18; TEMP 37; O2SAT 93
[2023-09-26 22:01] VITALS: BMI 24.3
[2023-09-26] MEDS: Ceftriaxone 2 GM in 0.9% Normal Saline (50mL MB+) 50 ML IV (22:43)
[2023-09-26] MEDS: 0.9% Normal Saline (1000mL) 1,000 ML 100 ML IV (22:43)
[2023-09-26 23:14] LABS: Bedside Glucose 198 mg/dL (74-106)
[2023-09-26] MEDS: metroNIDAZOLE 500 MG/100 ML BAG 100 MG IV (23:14)
[2023-09-27] VITALS (7 sets, daily range): BP systolic 128–169; BP diastolic 64–77; PULSE 60–72; RESP 18–20; TEMP 36.7–37; O2SAT 91–96; BMI 24.2
[2023-09-27] MEDS: Levothyroxine 88 MCG Tablet PO (06:35)
[2023-09-27] MEDS: metroNIDAZOLE 500 MG/100 ML BAG 100 MG IV ×3 (06:35→21:54)
[2023-09-27 07:02] LABS: Bedside Glucose 119 mg/dL (74-106)
[2023-09-27 07:35] LABS: Absolute Lymphocyte Count 2.82 X10^3/uL (0.83-4.51); Absolute Neutrophil Count 0.5 X10^3/uL (2.0-7.7); Basophil# 0.02 X10^3/uL; Basophil% 0.6 % (0-1); Eosinophil# 0.06 X10^3/uL; Eosinophils% 1.7 % (0-5); Hematocrit 31.4 % (40-54); Hemoglobin 10.4 g/dL (13.0-16.5); Lymphocyte # 2.82 X10^3/ul (0.83-4.51); Lymphocyte % 81.3 % (19-41); Mean Corp Hgb Conc 33.1 g/dL (32-36); Mean Corpuscular Hgb 30.1 pg (27.0-32.0); Mean Corpuscular Volume 90.8 fL (80-94); Mean Platelet Vol. 9.8 fl (6.2-12.0); Monocyte# 0.08 X10^3/uL; Monocyte% 2.3 % (0-10); NRBC Flagged by Analyzer 0 % (0-5); Neutrophil # 0.47 X10^3/uL (2.7-7.7); Neutrophil % 13.5 % (47-70); POSITIVE DIFFERENTIAL YES; Platelet Count 102 K/mm3 (150-450); RBC Distribution Width CV 13.9 % (11.6-14.6); RBC Distribution Width SD 46.2 fl (35.1-43.9); Red Blood Count 3.46 M/mm3 (4.6-6.2); White Blood Count 3.5 K/mm3 (4.4-11.0)
[2023-09-27 07:39] LABS: Differential Indicated SCAN CRITERIA MET
--- NOTE | 2023-09-27 07:49 | CASEMGMT ---
Social Work- Pt has directives on chart naming Jossie, agent, and Jennifer, alternate agent. CAMILA Herron
[2023-09-27 08:01] LABS: AST(SGOT) 21 U/L (15-37); Alanine Aminotransfer ALT/SGPT 12 U/L (16-61); Alkaline Phosphatase 80 U/L (45-117); Anion Gap 6 (5-15); BUN 20 mg/dL (7-18); BUN/Creat Ratio 21.2 RATIO (10-20); Calcium,Total 8.4 mg/dL (8.5-10.1); Chloride 107 mmol/L (98-107); Creatinine, Serum 0.94 mg/dL (0.70-1.30); EST Glomerular Filtration Rate 81 mL/min (>60); Est Glom Filt Rate - Afr Amer 98 mL/min (>60); Estimated Creatinine Clearance 59.32 ml/min; Globulin 3.1 g/dL (2.2-4.2); Glucose 113 mg/dL (74-106); Potassium 3.8 mmol/L (3.5-5.1); Protein, Total 6.1 g/dL (6.4-8.2); Sodium Level 140 mmol/L (136-145)
[2023-09-27] MEDS: Carvedilol 3.125 MG TABLET PO ×2 (08:50→17:47)
[2023-09-27] MEDS: Finasteride 5 MG Tablet PO (08:51)
[2023-09-27] MEDS: Enoxaparin 40 MG/0.4 ML Syringe SC (08:51)
[2023-09-27] MEDS: Sertraline 50 MG Tablet 12.5 MG PO (08:51)
[2023-09-27 10:06] LABS: Hemoglobin A1c 6.1 % (3.8-5.6)
--- NOTE | 2023-09-27 10:29 | WOUNDNOTE ---
Pt has some mild discoloration to the left dorsal foot with a small dry puncture site from cat. there is no drainage. wound care orders changed from NS wet to dry every 8 hours to leaving it AOC [employer] since there is no drainage. will monitor.
--- NOTE | 2023-09-27 10:34 | PCM.PN.HOSP ---
Reason for Visit Reason for Visit: Diagnoses Cellulitis, unspecified (09/26/23) Subjective Subjective Saw patient at bedside this morning. Sitting up comfortably in bedside chair, conversing normally, in no distress. Patient has left leg elevated on the chair leg rest and the redness that was marked with marker on admission was significantly improved. Patient denied any pain or discomfort in the leg this morning. Denies any fevers or chills. Had been shifted from the bed to the chair by nursing staff and did this without significant issue but had not worked with therapy when I saw him. No other acute concerns today. Objective Data Objective Data Vital Signs: Vital Signs Temp Pulse Resp BP Pulse Ox O2 Del Method 98.0 F 68 18 128/71 H 95 Room Air 09/27/23 08:50 09/27/23 09:33 09/27/23 08:50 09/27/23 08:50 09/27/23 08:50 09/27/23 08:50 Oxygen Delivery Method Room Air Weight: 76.7 kg Body Mass Index (BMI) 24.2 Intake & Output: Intake and Output for Last 24 Hours 09/25/23 09/26/23 09/27/23 23:59 23:59 23:59 Intake Total 100 / 100 562 / 562 Output Total 1350 / 1350 Balance 100 / 100 -788 / -788 Lab / Micro Data 09/27/23 06:14 09/27/23 06:14 Labs: Laboratory Results - last 24 hr 09/26/23 19:50: WBC 4.0 L, RBC 3.72 L, Hgb 11.3 L, Hct 34.1 L, MCV 91.7, MCH 30.4, MCHC 33.1, RDW Std Deviation 47.7 H, RDW Coeff of [place] 14.1, Plt Count 103 L, MPV 9.7, Immature Gran % (Auto) 0.800, Neut % (Auto) 16.0 L, Lymph % (Auto) 75.7 H, [place] % (Auto) 5.0, Eos % (Auto) 1.5, Baso % (Auto) 1.0, Absolute Neuts (auto) 0.6 L, Absolute Lymphs (auto) 3.02, Nucleated RBC % 0, Differential Comment SEE COMMENT, Atypical Lymphocytes 1+, Platelet Estimate MOD DEC, RBC Morphology N CHROM, Anisocytosis RARE, Macrocytosis RARE, Ovalocytes RARE, ESR 30 H, Sodium 138, Potassium 4.2, Chloride 106, Carbon Dioxide 29.0, Anion Gap 3 L, BUN 26 H, Creatinine 1.06, Estim Creat Clear Calc 52.61, Est GFR (MDRD) Af Amer 85, Est GFR (MDRD) Non-Af 70, BUN/Creatinine Ratio 24.5 H, Glucose 115 H, Lactic Acid 0.9, Calcium 8.7, Total Bilirubin 0.60, AST 27, ALT 14 L, Alkaline Phosphatase 91, C-React Prot Ext Range 60.10 H, Total Protein 6.5, Albumin 3.2, Globulin 3.3, Albumin/Globulin Ratio 1.0 09/26/23 22:45: POC Glucose 198 H 09/27/23 06:14: WBC 3.5 L, RBC 3.46 L, Hgb 10.4 L, Hct 31.4 L, MCV 90.8, MCH 30.1, MCHC 33.1, RDW Std Deviation 46.2 H, RDW Coeff of [place] 13.9, Plt Count 102 L, MPV 9.8, Immature Gran % (Auto) 0.600, Neut % (Auto) 13.5 L, Lymph % (Auto) 81.3 H, [place] % (Auto) 2.3, Eos % (Auto) 1.7, Baso % (Auto) 0.6, Absolute Neuts (auto) 0.5 L, Absolute Lymphs (auto) 2.82, Nucleated RBC % 0, Sodium 140, Potassium 3.8, Chloride 107, Carbon Dioxide 27.0, Anion Gap 6, BUN 20 H, Creatinine 0.94, Estim Creat Clear Calc 59.32, Est GFR (MDRD) Af Amer 98, Est GFR (MDRD) Non-Af 81, BUN/Creatinine Ratio 21.2 H, Glucose 113 H, Hemoglobin A1c 6.1 H, Calcium 8.4 L, Total Bilirubin 0.40, AST 21, ALT 12 L, Alkaline Phosphatase 80, Total Protein 6.1 L, Albumin 3.0 L, Globulin 3.1, Albumin/Globulin Ratio 1.0 09/27/23 06:34: POC Glucose 119 H Physical Exam Const alert, oriented x3, no apparent distress and average body habitus Constitutional Narrative: Pleasant elderly male, history of dementia but alert and oriented x 3 at this time, mildly fatigued appearing but otherwise sitting up comfortably in bedside chair, conversing normally, in no acute distress. General Appearance: cooperative and comfortable HEENT normocephalic, head/scalp atraumatic, hearing grossly normal bilaterally, nasal mucous membranes and turbinates normal and moist oral mucous membranes Eyes PERRL, EOMs intact bilaterally and conjunctivae normal Neck full ROM Chest inspection of chest normal Resp normal respiratory effort, normal air movement, no use of accessory muscles and clear to auscultation bilaterally Cardio regular rate, regular rhythm, no murmurs and peripheral pulses 2+ throughout GI normal to inspection, nondistended, normoactive bowel sounds, soft to palpation, non-tender and non-distended Back/Spine normal ROM Extremity Extremity Narrative: Left foot with erythema noted over the dorsum of the foot, much improved from admission. Neuro moves all extremities and no focal motor deficits Speech: speech normal Psych mental status grossly normal Assessment & Plan Assessment/Plan (1) Cellulitis of left foot: (2) Failure of outpatient treatment: PLAN: Plan Patient is an 87-year-old male who presented to [facility] ED on 09/26/2023 with worsening left foot redness and swelling. 1. Left lower extremity cellulitis with failed outpatient antibiotic treatment ? Suspected secondary to recent cat scratch versus bite per patient history. Started with left foot redness and swelling that spread to the mid lower leg. Did not have any improvement on p.o. cefdinir in outpatient setting. ? Notably was given a dose of IV doxycycline in the ED but apparently did not tolerate this well as he had significant shaking. Instead was started on IV ceftriaxone on admission and has had significant improvement in redness and swelling. No systemic signs of infection. Will continue IV ceftriaxone for now. If patient continues to improve tomorrow, likely okay for transition to p.o. antibiotics and discharged home. Chronic medical conditions: ? 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 Admission CBC with WBC count of 4, hemoglobin 11.3, platelet count 1 3 with ANC 0.6 which is similar to previous labs. CBC stable on hospital day 2, no need to monitor further during hospitalization. ? Stable infrarenal AAA: Last imaging done in 12/2022, aneurysm stable. Continue outpatient follow-up. ? History of CAD s/p stenting, hypertension, hyperlipidemia: Stable. Continue home aspirin, statin, Coreg. ? Type 2 diabetes mellitus: Not on any home medications. Most recent A1c 6.1%. Blood sugar stable during hospitalization. Patient notably refused sliding-scale insulin with meals so orders discontinued. ? Mild dementia: Alert and oriented x 3 during hospitalization, stable. ? Mild chronic normocytic anemia: Hemoglobin 11.3 on admit, stable at baseline. ? GERD: Stable. Continue home PPI. ? BPH with issues with chronic urinary retention: Follows with Dr. Peres. No current issues. Continue home dutasteride. ? Hypothyroidism: Stable. Continue home Synthroid. ? Former tobacco use: Encouraged continued cessation. DVT prophylaxis: Lovenox CODE STATUS: DNR CCA, DNI Expected disposition: Home, 1 to 2 days Total clinical time spent by myself addressing the patient's medical issues, reviewing all the data, and collaborating with patient's care team: 35 minutes. Charges/Coding Visit Charges Inpatient E&M: 08356 Subs Hosp L2
[2023-09-27 11:27] LABS: Bedside Glucose 147 mg/dL (74-106)
--- NOTE | 2023-09-27 12:58 | CASEMGMT ---
FREDI MEDINA Assessment Face to Face with patient for initial transition planning/care coordination assessment. FREDI MEDINA introduced self and role at [facility], pt voices understanding. Pt is A&Ox4 and is resting comfortably in the chair and is calm. Care providers, pharmacy, and demographics verified. Admitting dx: Cellulitis/ Cat scratch/ Bite LACE Strata: 3 PCP: [facility] Specialists: Larisa (Uro), Jermain HAYDEN (Derm) Preferred Pharmacy: [facility] Insurance: [employer] Prescription Benefit: Yes LNOK: Elena Ness (Daughter), Jennifer Contreras (Daughter), Chapin Contreras (Son) Living Arrangements: Pt lives with his son Flip in a single story home with a BM with HR and 2 steps to enter with a HR ADLs/IADLs: Requires assistance through the son and REY Transportation: Son, REY DME: Shower chair. Raised toilet. Cane. FWW. HHC/SNF: Hx at [facility] TCU. Hx with [facility] Pt?s goal: Return to PLOF Plan: TBD. Anticipate SNF vs Home with HH. There is no 6-Click score entered at this time. PT is ordered but the evaluation is pending. Pt does not deny SNF or HH needs at this time. Pt would like to wait and see how he does with PT. CM and SW to follow therapy and pt progression in the hospital to decipher the safest DC plan moving forward. Mukund Moseley RN, CM
--- NOTE | 2023-09-27 15:33 | CASEMGMT ---
Addendum entered by Antony Moseley 09/27/23 16:02: [facility] is able to accept for SOC Monday. RN CM to pt room and pt and pt son updated with this information at this time. They state that they are satisfied with this plan and deny further needs. DC intervention updated. Pt plans to return to his son's home at time of DC at [address] [facility] updated and Nicol states that that works. Original Note: This RN CM appreciated the PT and OT evaluation. PT is recommending HH vs OP Tx. OT is not recommending any additional therapy. This RN CM to pt room at this time to discuss DC planning. This RN CM reviewed how the pt did with therapy. Pt states that he would like to go home with [facility] rather than OP Tx. Pt refused to see a local list of in-network [facility] agencies and states that he would like to go through [facility] for HH. TC to Nicol at [facility] and referral made for SN and PT. Awaiting return response.
[2023-09-27 16:44] LABS: Bedside Glucose 136 mg/dL (74-106)
[2023-09-27] MEDS: Aspirin 81 MG TAB.CHEW PO (20:14)
[2023-09-27] MEDS: Ceftriaxone 2 GM in 0.9% Normal Saline (50mL MB+) 50 ML IV (20:15)
[2023-09-28] VITALS (8 sets, daily range): BP systolic 124–158; BP diastolic 62–80; PULSE 57–67; RESP 16–20; TEMP 36.4–36.9; O2SAT 90–98; BMI 24.3
[2023-09-28] MEDS: MELATONIN 3 MG TABLET PO ×2 (01:37→20:00)
[2023-09-28] MEDS: 0.9% Saline Lock 10 ML Syringe IV ×4 (01:55→19:55)
[2023-09-28] MEDS: Levothyroxine 88 MCG Tablet PO (04:55)
[2023-09-28] MEDS: metroNIDAZOLE 500 MG/100 ML BAG 100 MG IV ×3 (04:55→20:22)
[2023-09-28] MEDS: Enoxaparin 40 MG/0.4 ML Syringe SC (08:04)
[2023-09-28] MEDS: Sertraline 50 MG Tablet 12.5 MG PO (08:04)
[2023-09-28] MEDS: Carvedilol 3.125 MG TABLET PO ×2 (08:04→18:07)
[2023-09-28] MEDS: Finasteride 5 MG Tablet PO (08:04)
[2023-09-28] MEDS: Acetaminophen 325 MG Tablet 650 MG PO (08:16)
--- NOTE | 2023-09-28 09:49 | CT_ITS ---
STUDY: CT LEFT ANKLE WITHOUT CONTRAST REASON FOR EXAM: Male, 87 years old. Left foot cellulitis. Evaluate for abscess. RADIATION DOSAGE (If Supplied By Facility): CTDIvol = ( 15.35 ) mGy, DLP = ( 537.98 ) mGycm TECHNIQUE: Transaxial CT imaging of the ankle was performed without intravenous contrast. Individualized dose optimization techniques were used for this CT. COMPARISON: None. FINDINGS: Osteopenia. Calcaneal spurs. Moderate arthrosis of the tibiotalar joint, the subtalar joint, the talonavicular joint, the midfoot and the tarsometatarsal joints. Moderate to marked arthrosis of the MTP and IP joints with marked hammertoe deformities. Marked vascular calcification. Diffuse soft tissue swelling. No imaging evidence of abscess. CT/Extremity Lower WITH Contrast IMPRESSION: Osteopenia with moderate diffuse osteoarthritic changes and calcaneal spurs. Marked vascular calcification. Diffuse soft tissue swelling. No CT evidence of an abscess. Electronically Signed: Kapil Dickerson MD at 10:43 EDT ,
--- NOTE | 2023-09-28 10:22 | CASEMGMT ---
Dr. Peralta states that the pt will be staying today and may be able to DC tomorrow. [facility] updated and Nicol states that they will start care either Monday or early next week. Will follow.
--- NOTE | 2023-09-28 10:52 | PCM.PN.HOSP ---
Reason for Visit Reason for Visit: Diagnoses Cellulitis of left lower limb (09/26/23) Cellulitis, unspecified (09/26/23) Other specified health status (09/26/23) Subjective Subjective Saw patient at bedside this morning. Patient was sitting up comfortably in bedside chair, in no acute distress. Unfortunately his left foot looked similar to yesterday or even slightly worse with regard to redness and swelling. He stated that he has moderate pain and discomfort in the foot when initially getting up and moving around but this does improve with further ambulation. He denies any fevers or chills. No other new concerns today. Objective Data Objective Data Vital Signs: Vital Signs Temp Pulse Resp BP Pulse Ox O2 Del Method 97.7 F L 57 L 16 158/79 H 94 Room Air 09/28/23 07:55 09/28/23 07:55 09/28/23 07:55 09/28/23 07:55 09/28/23 07:58 09/28/23 07:59 Oxygen Delivery Method Room Air Weight: 77.2 kg Body Mass Index (BMI) 24.3 Intake & Output: Intake and Output for Last 24 Hours 09/26/23 09/27/23 09/28/23 23:59 23:59 23:59 Intake Total 100 / 100 3026 / 3026 100 / 100 Output Total 1350 / 1550 850 / 850 Balance 100 / 100 1676 / 1476 -750 / -750 Lab / Micro Data 09/27/23 06:14 09/27/23 06:14 Labs: Laboratory Results - last 24 hr 09/27/23 11:09: POC Glucose 147 H 09/27/23 16:11: POC Glucose 136 H Radiography Diagnostic Testing: Radiology Impression Lower Extremity CT 09/28/23 09:49 IMPRESSION: Osteopenia with moderate diffuse osteoarthritic changes and calcaneal spurs. Marked vascular calcification. Diffuse soft tissue swelling. No CT evidence of an abscess. Electronically Signed: Kapil Dickerson MD at 10:43 EDT , Physical Exam Const alert, oriented x3, no apparent distress and average body habitus Constitutional Narrative: Pleasant elderly male, history of dementia but alert and oriented x 3 at this time, mildly fatigued appearing but otherwise sitting up comfortably in bedside chair, conversing normally, in no acute distress. Stable. General Appearance: cooperative and comfortable HEENT normocephalic, head/scalp atraumatic, hearing grossly normal bilaterally, nasal mucous membranes and turbinates normal and moist oral mucous membranes Eyes PERRL, EOMs intact bilaterally and conjunctivae normal Neck full ROM Chest inspection of chest normal Resp normal respiratory effort, normal air movement, no use of accessory muscles and clear to auscultation bilaterally Cardio regular rate, regular rhythm, no murmurs and peripheral pulses 2+ throughout GI normal to inspection, nondistended, normoactive bowel sounds, soft to palpation, non-tender and non-distended Back/Spine normal ROM Extremity Extremity Narrative: Left foot with erythema noted over the dorsum of the foot and swelling of the foot noted, slightly worse than yesterday. Lower leg redness and swelling is improved from admission. Neuro moves all extremities and no focal motor deficits Speech: speech normal Psych mental status grossly normal Assessment & Plan Assessment/Plan (1) Cellulitis of left foot: (2) Failure of outpatient treatment: PLAN: Plan Patient is an 87-year-old male who presented to [facility] ED on 09/26/2023 with worsening left foot redness and swelling. 1. Left lower extremity cellulitis with failed outpatient antibiotic treatment ? Suspected secondary to recent cat scratch versus bite per patient history. Started with left foot redness and swelling that spread to the mid lower leg. Did not have any improvement on p.o. cefdinir in outpatient setting. ? Notably was given a dose of IV doxycycline in the ED but apparently did not tolerate this well as he had significant shaking. Instead was started on IV ceftriaxone on admission with initial improvement in redness and swelling of the leg. However, continues to have left foot redness and swelling that has not improved along with pain with ambulation. Will switch to IV vancomycin and obtain CT of left foot to rule out abscess. Chronic medical conditions: ? 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 Admission CBC with WBC count of 4, hemoglobin 11.3, platelet count 1 3 with ANC 0.6 which is similar to previous labs. CBC stable on hospital day 2, no need to monitor further during hospitalization. ? Stable infrarenal AAA: Last imaging done in 12/2022, aneurysm stable. Continue outpatient follow-up. ? History of CAD s/p stenting, hypertension, hyperlipidemia: Stable. Continue home aspirin, statin, Coreg. ? Type 2 diabetes mellitus: Not on any home medications. Most recent A1c 6.1%. Blood sugar stable during hospitalization. Patient notably refused sliding-scale insulin with meals so orders discontinued. ? Mild dementia: Alert and oriented x 3 during hospitalization, stable. ? Mild chronic normocytic anemia: Hemoglobin 11.3 on admit, stable at baseline. ? GERD: Stable. Continue home PPI. ? BPH with issues with chronic urinary retention: Follows with Dr. Peres. No current issues. Continue home dutasteride. ? Hypothyroidism: Stable. Continue home Synthroid. ? Former tobacco use: Encouraged continued cessation. DVT prophylaxis: Lovenox CODE STATUS: DNR CCA, DNI Expected disposition: Home, 1 to 2 days Total clinical time spent by myself addressing the patient's medical issues, reviewing all the data, and collaborating with patient's care team: 35 minutes. Charges/Coding Visit Charges Inpatient E&M: 34111 Subs Hosp L2
[2023-09-28] MEDS: Vancomycin HCl 2,000 MG in 0.9% Normal Saline (500mL Bag) 500 ML 250 MG IV (11:09)
--- NOTE | 2023-09-28 12:50 | PCM.RX.CS ---
Consult Antibiotic Management Pharmacy has been consulted to manage selected antibiotic: Vancomycin Type of Intervention Type of Consult: New start Suspected Infection Suspected Infection: Skin/Soft tissue Prior Doses of Antibiotics Prior Doses of Antibiotics Received/Current Regimen: Vancomycin 2000 mg IV x 1 given 09/28/23 @ 1109 Labs Labs: Sodium 140 mmol/L (136-145) 09/27/23 06:14 Potassium 3.8 mmol/L (3.5-5.1) 09/27/23 06:14 Chloride 107 mmol/L (98-107) 09/27/23 06:14 Carbon Dioxide 27.0 mmol/L (21.0-32.0) 09/27/23 06:14 Anion Gap 6 (5-15) 09/27/23 06:14 BUN 20 mg/dL (7-18) H 09/27/23 06:14 Creatinine 0.94 mg/dL (0.70-1.30) 09/27/23 06:14 Est GFR (MDRD) Af Amer 98 mL/min (>60) 09/27/23 06:14 Est GFR (MDRD) Non-Af 81 mL/min (>60) 09/27/23 06:14 BUN/Creatinine Ratio 21.2 RATIO (10-20) H 09/27/23 06:14 Glucose 113 mg/dL (74-106) H 09/27/23 06:14 Dosing Weight Weight used for dosin.2 kg Estimated Creatinine Clearance Estimated Creatinine Clearance: ~59 Goal Trough Goal Trough: 15-20 mcg/mL Pharmacy Plan for Drug Dosing Pharmacy Plan for Drug Dosing: Vancomycin 2000 mg IV x 1 followed by 750 mg Q12H. Pharmacy Service will continue to monitor and adjust dosing as required. Follow-Up Labs Follow-Up Labs: Trough: Vancomycin Date/Time Labs Ordered Labs to be done on [date and time ordered]: 09/29/23 @ 5091
[2023-09-28] MEDS: Aspirin 81 MG TAB.CHEW PO (19:59)
[2023-09-28] MEDS: Vancomycin HCl 750 MG in 0.9% Normal Saline (250mL Bag) 250 ML 250 MG IV (23:52)
[2023-09-29 03:50] VITALS: BMI 25.5
[2023-09-29 06:23] VITALS: BP 131/60; PULSE 89; RESP 18; TEMP 37.3; O2SAT 93
[2023-09-29] MEDS: metroNIDAZOLE 500 MG/100 ML BAG 100 MG IV ×3 (06:28→22:01)
[2023-09-29] MEDS: Levothyroxine 88 MCG Tablet PO (06:28)
[2023-09-29] MEDS: Finasteride 5 MG Tablet PO (08:00)
[2023-09-29] MEDS: Sertraline 50 MG Tablet 12.5 MG PO (08:00)
[2023-09-29] MEDS: Carvedilol 3.125 MG TABLET PO ×2 (08:02→16:46)
[2023-09-29] MEDS: Enoxaparin 40 MG/0.4 ML Syringe SC (08:04)
[2023-09-29 08:46] VITALS: O2SAT 93
[2023-09-29 08:47] VITALS: BP 151/76; PULSE 61; RESP 16; TEMP 37.1; O2SAT 96
[2023-09-29 09:25] LABS: Hematocrit 32.9 % (40-54); Hemoglobin 10.9 g/dL (13.0-16.5); Mean Corp Hgb Conc 33.1 g/dL (32-36); Mean Corpuscular Hgb 30.2 pg (27.0-32.0); Mean Corpuscular Volume 91.1 fL (80-94); Platelet Count 113 K/mm3 (150-450); RBC Distribution Width CV 14.1 % (11.6-14.6); RBC Distribution Width SD 47.2 fl (35.1-43.9); Red Blood Count 3.61 M/mm3 (4.6-6.2); White Blood Count 2.3 K/mm3 (4.4-11.0)
[2023-09-29 09:55] LABS: Anion Gap 5 (5-15); BUN 17 mg/dL (7-18); BUN/Creat Ratio 16.2 RATIO (10-20); Calcium,Total 8.6 mg/dL (8.5-10.1); Chloride 107 mmol/L (98-107); Creatinine, Serum 1.05 mg/dL (0.70-1.30); EST Glomerular Filtration Rate 71 mL/min (>60); Est Glom Filt Rate - Afr Amer 86 mL/min (>60); Estimated Creatinine Clearance 53.11 ml/min; Glucose 164 mg/dL (74-106); Potassium 3.8 mmol/L (3.5-5.1); Sodium Level 138 mmol/L (136-145)
[2023-09-29] MEDS: Vancomycin HCl 750 MG in 0.9% Normal Saline (250mL Bag) 250 ML 250 MG IV (10:54)
--- NOTE | 2023-09-29 11:15 | CASEMGMT ---
Addendum entered by Antony Moseley 09/29/23 11:39: Pt updated with this information and [facility] is requesting the pt son's phone # to contact. FREDI CM to pt room and the pt states that this is OK. Chapin's number given to [facility] at this time. Original Note: Dr. Peralta states that the pt is going to stay here x 1 more day with IV ATBs and DC tomorrow on PO ATBs. [facility] updated and [facility] states that they can start care at home on Monday. DC intervention updated and Green sheet placed on chart to facilitate weekend DC.
[2023-09-29 11:36] VITALS: BP 119/61; PULSE 60; RESP 16; TEMP 36.8; O2SAT 97
--- NOTE | 2023-09-29 12:29 | PN.HOSP_ITS ---
Reason for Visit Reason for Visit: Diagnoses Cellulitis of left lower limb (09/26/23) Cellulitis, unspecified (09/26/23) Other specified health status (09/26/23) Subjective Subjective Saw patient at bedside this morning. Appeared similar to previous days. Sitting up comfortably in bed, conversing normally, in no acute distress. Patient's foot appears about the same as yesterday. However, he has no pain with palpation and states his pain with ambulation is slightly improved. Continues to deny fevers or chills. No other new concerns today. Objective Data Objective Data Vital Signs: Vital Signs Temp Pulse Resp BP Pulse Ox O2 Del Method 98.3 F 60 16 119/61 97 Room Air 09/29/23 11:36 09/29/23 11:36 09/29/23 11:36 09/29/23 11:36 09/29/23 11:36 09/29/23 11:36 Oxygen Delivery Method Room Air Weight: 81 kg Body Mass Index (BMI) 25.5 Intake & Output: Intake and Output for Last 24 Hours 09/27/23 09/28/23 09/29/23 23:59 23:59 23:59 Intake Total 3026 / 3026 1840 / 1840 980 / 980 Output Total 1350 / 1550 1200 / 1200 Balance 1676 / 1476 640 / 640 980 / 980 Lab / Micro Data 09/29/23 08:51 09/29/23 08:51 Labs: Laboratory Results - last 24 hr 09/29/23 08:51: WBC 2.3 L, RBC 3.61 L, Hgb 10.9 L, Hct 32.9 L, MCV 91.1, MCH 30.2, MCHC 33.1, RDW Std Deviation 47.2 H, RDW Coeff of [place] 14.1, Plt Count 113 L, MPV 9.0, Sodium 138, Potassium 3.8, Chloride 107, Carbon Dioxide 26.0, Anion Gap 5, BUN 17, Creatinine 1.05, Estim Creat Clear Calc 53.11, Est GFR (MDRD) Af Amer 86, Est GFR (MDRD) Non-Af 71, BUN/Creatinine Ratio 16.2, Glucose 164 H, Calcium 8.6 Physical Exam Const alert, oriented x3, no apparent distress and average body habitus Constitutional Narrative: Pleasant elderly male, history of dementia but alert and oriented x 3 at this time, mildly fatigued appearing but otherwise sitting up comfortably in bedside chair, conversing normally, in no acute distress. Stable. General Appearance: cooperative and comfortable HEENT normocephalic, head/scalp atraumatic, hearing grossly normal bilaterally, nasal mucous membranes and turbinates normal and moist oral mucous membranes Eyes PERRL, EOMs intact bilaterally and conjunctivae normal Neck full ROM Chest inspection of chest normal Resp normal respiratory effort, normal air movement, no use of accessory muscles and clear to auscultation bilaterally Cardio regular rate, regular rhythm, no murmurs and peripheral pulses 2+ throughout GI normal to inspection, nondistended, normoactive bowel sounds, soft to palpation, non-tender and non-distended Back/Spine normal ROM Extremity Extremity Narrative: Left foot with erythema noted over the dorsum of the foot and swelling of the foot noted, stable to slightly improved. Lower leg redness and swelling is improved from admission. Neuro moves all extremities and no focal motor deficits Speech: speech normal Psych mental status grossly normal Assessment & Plan Assessment/Plan (1) Cellulitis of left foot: (2) Failure of outpatient treatment: PLAN: Plan Patient is an 87-year-old male who presented to [facility] ED on 09/26/2023 with worsening left foot redness and swelling. 1. Left lower extremity cellulitis with failed outpatient antibiotic treatment ? Suspected secondary to recent cat scratch versus bite per patient history. Started with left foot redness and swelling that spread to the mid lower leg. Did not have any improvement on p.o. cefdinir in outpatient setting. Notably was given a dose of IV doxycycline in the ED but apparently did not tolerate this well as he had significant shaking. Instead was started on IV ceftriaxone on admission with initial improvement in redness and swelling of the leg. However, continued to have left foot redness and swelling that was minimally improved. CT left foot with contrast on 09/27 showed diffuse soft tissue swelling of the foot but no abscess. Was switched to IV vancomycin on 09/27 with seemingly minimal improvement on 09/28. Will switch again to p.o. doxycycline on 09/28 given there is concern for a nontypical bacteria causing his cellulitis; will watch patient closely after first dose to see if he has any reaction to this medication. Notably, p.o. doxycycline should have similar bioavailability to IV doxycycline and patient tolerates better, okay to treat with only p.o. doxycycline. Will continue to monitor closely. Chronic medical conditions: ? 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 Admission CBC with WBC count of 4, hemoglobin 11.3, platelet count 1 3 with ANC 0.6 which is similar to previous labs. CBC stable on hospital day 2, no need to monitor further during hospitalization. ? Stable infrarenal AAA: Last imaging done in 12/2022, aneurysm stable. Continue outpatient follow-up. ? History of CAD s/p stenting, hypertension, hyperlipidemia: Stable. Continue home aspirin, statin, Coreg. ? Type 2 diabetes mellitus: Not on any home medications. Most recent A1c 6.1%. Blood sugar stable during hospitalization. Patient notably refused sliding- scale insulin with meals so orders discontinued. ? Mild dementia: Alert and oriented x 3 during hospitalization, stable. ? Mild chronic normocytic anemia: Hemoglobin 11.3 on admit, stable at baseline. ? GERD: Stable. Continue home PPI. ? BPH with issues with chronic urinary retention: Follows with Dr. Peres. No current issues. Continue home dutasteride. ? Hypothyroidism: Stable. Continue home Synthroid. ? Former tobacco use: Encouraged continued cessation. DVT prophylaxis: Lovenox CODE STATUS: DNR CCA, DNI Expected disposition: Home, 1 to 2 days Total clinical time spent by myself addressing the patient's medical issues, reviewing all the data, and collaborating with patient's care team: 35 minutes. Charges/Coding Visit Charges Inpatient E&M: 64223 Subs Hosp L2
[2023-09-29] MEDS: Doxycycline 100 MG CAPSULE PO ×2 (12:49→22:01)
[2023-09-29 15:19] VITALS: BP 144/76; PULSE 60; RESP 16; TEMP 36.9; O2SAT 98
[2023-09-29 21:58] VITALS: BP 158/74; PULSE 61; RESP 18; TEMP 37.1; O2SAT 94
[2023-09-29] MEDS: Aspirin 81 MG TAB.CHEW PO (22:01)
[2023-09-29] MEDS: MELATONIN 3 MG TABLET PO (22:02)
[2023-09-30 05:31] VITALS: BP 153/83; PULSE 60; RESP 18; TEMP 36.7; O2SAT 93
[2023-09-30] MEDS: metroNIDAZOLE 500 MG/100 ML BAG 100 MG IV (05:33)
[2023-09-30] MEDS: Levothyroxine 88 MCG Tablet PO (05:34)
[2023-09-30 06:00] VITALS: BMI 24.9
[2023-09-30] MEDS: Sertraline 50 MG Tablet 12.5 MG PO (07:42)
[2023-09-30] MEDS: Enoxaparin 40 MG/0.4 ML Syringe SC (07:43)
[2023-09-30] MEDS: Carvedilol 3.125 MG TABLET PO (07:43)
[2023-09-30] MEDS: Doxycycline 100 MG CAPSULE PO (07:43)
[2023-09-30] MEDS: Finasteride 5 MG Tablet PO (07:44)
[2023-09-30 08:26] VITALS: BP 152/86; PULSE 58; RESP 16; TEMP 37; O2SAT 94
[2023-09-30 11:19] VITALS: BP 103/65; PULSE 58; RESP 16; TEMP 36.6; O2SAT 98
--- NOTE | 2023-09-30 11:54 | PCM.DC.SUM ---
Providers Date of Admission: 09/26/23 Date of Discharge: 09/30/23 Primary Care Physician: Dr. Wagner Gr MD Reason For Visit: CELLULITIS/CAT SCRATCH/BITE Diagnosis Discharge Diagnosis (1) Cellulitis of left foot: Status: Acute Code(s): L03.116 - Cellulitis of left lower limb (2) Failure of outpatient treatment: Status: Acute Code(s): Z78.9 - Other specified health status Medications at Discharge Home Medications carvedilol 3.125 mg tablet 3.125 mg PO BID bp 01/29/20 dutasteride 0.5 mg capsule 0.5 mg PO DAILY prostate 12/08/22 levothyroxine 88 mcg tablet 88 mcg PO DAILY thyroid 12/26/22 aspirin 81 mg chewable tablet 81 mg PO QPM heart health 09/26/23 sertraline 25 mg tablet 12.5 mg PO DAILY 09/26/23 doxycycline monohydrate 100 mg capsule 100 mg PO BID 5 days #10 caps 09/30/23 Hospital Course Operations None Procedures - (Lower extremity CT) Summary of Care Provided Minutes Spent on Discharge: 35 Hospital Course: Patient is an 87-year-old male who presented to [facility] ED on 09/26/2023 with worsening left foot redness and swelling. Hospital course as noted below. Patient discharged home with home health care in stable condition on 09/29. 1. Left lower extremity cellulitis with failed outpatient antibiotic treatment; mild acute on chronic debility ? Suspected secondary to recent cat scratch versus bite per patient history. Started with left foot redness and swelling that spread to the mid lower leg. Did not have any improvement on p.o. cefdinir in outpatient setting. Notably was given a dose of IV doxycycline in the ED but apparently did not tolerate this well as he had significant shaking. Instead was started on IV ceftriaxone on admission with initial improvement in redness and swelling of the leg. However, continued to have left foot redness and swelling that was minimally improved. CT left foot with contrast on 09/27 showed diffuse soft tissue swelling of the foot but no abscess. Was switched to IV vancomycin on 09/27 with seemingly minimal improvement on 09/28. Will switch again to p.o. doxycycline on 09/28 given there is concern for a nontypical bacteria causing his cellulitis; patient had no issues with this medication and left foot showing good signs of improvement on 09/29. Okay for discharge home on 09/29 on p.o. doxycycline to complete 7-day course of antibiotics total, stop date 10/04. PT/OT/case management followed. Stable for discharge home with home health care. Chronic medical conditions: ? 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 Admission CBC with WBC count of 4, hemoglobin 11.3, platelet count 1 3 with ANC 0.6 which is similar to previous labs. CBC stable on hospital day 2, no need to monitor further during hospitalization. ? Stable infrarenal AAA: Last imaging done in 12/2022, aneurysm stable. Continue outpatient follow-up. ? History of CAD s/p stenting, hypertension, hyperlipidemia: Stable. Continue home aspirin, statin, Coreg. ? Type 2 diabetes mellitus: Not on any home medications. Most recent A1c 6.1%. Blood sugar stable during hospitalization. Patient notably refused sliding-scale insulin with meals so orders discontinued. ? Mild dementia: Alert and oriented x 3 during hospitalization, stable. ? Mild chronic normocytic anemia: Hemoglobin 11.3 on admit, stable at baseline. ? GERD: Stable. Continue home PPI. ? BPH with issues with chronic urinary retention: Follows with Dr. Peres. No current issues. Continue home dutasteride. ? Hypothyroidism: Stable. Continue home Synthroid. ? Former tobacco use: Encouraged continued cessation. Total clinical time spent by myself addressing the patient's medical issues, reviewing all the data, and collaborating with patient's care team: 35 minutes. Physical Exam Const alert, oriented x3, no apparent distress and average body habitus Constitutional Narrative: Pleasant elderly male, history of dementia but alert and oriented x 3 at this time, mildly fatigued appearing but otherwise sitting up comfortably in bedside chair, conversing normally, in no acute distress. Stable. General Appearance: cooperative and comfortable HEENT normocephalic, head/scalp atraumatic, hearing grossly normal bilaterally, nasal mucous membranes and turbinates normal and moist oral mucous membranes Eyes PERRL, EOMs intact bilaterally and conjunctivae normal Neck full ROM Chest inspection of chest normal Resp normal respiratory effort, normal air movement, no use of accessory muscles and clear to auscultation bilaterally Cardio regular rate, regular rhythm, no murmurs and peripheral pulses 2+ throughout GI normal to inspection, nondistended, normoactive bowel sounds, soft to palpation, non-tender and non-distended Back/Spine normal ROM Extremity Extremity Narrative: Left foot swelling and erythema much improved from admission. Lower leg redness and swelling also improved from admission. Neuro moves all extremities and no focal motor deficits Speech: speech normal Psych mental status grossly normal Weight / BMI Weight Weight: 79 kg Body Mass Index (BMI) 24.9 ABG / Lab / Microbiology Data 09/29/23 08:51 09/29/23 08:51 Meaningful Use Info Meaningful Use Meaningful Use Diagnoses (Choose all that apply): None applicable Ischemic Stroke Statin Dosing Therapy Reference: STATIN DOSE THERAPY REFERENCE: * Patients > 75 years receive moderate or high dose statin therapy. * Patients 75 years or YOUNGER should receive HIGH intensity statin dose unless contraindicated. You will be required to document reason for non-treatment if statin daily dose does not meet guidelines. HIGH DOSE STATIN THERAPY DAILY Atorvastatin > than or = to 40 mg Rosuvastatin > than or = to 20 mg Amlodipine + Atorvastatin > than or = to 2.5/40 mg Ezetimibe + Simvastatin 10/80 mg Simvastatin 80mg Discharge Plan Admission Admit Date/Time: 09/26/23 20:59 Primary Reason for Your Visit: Left foot infection Attending Provider: Vianyak Peralta Primary Care Provider: Wagner Gr Consulting Providers: Madelaine Herrera Instructions Additional Instructions / Restrictions: Please take 5 more days of doxycycline to complete a 7-day course of antibiotics total. Discharge Orders/Prescriptions Prescriptions: New doxycycline monohydrate 100 mg Capsule 100 mg PO BID 5 Days Qty: 10 0RF Continued carvedilol 3.125 MG tablet 3.125 mg PO BID dutasteride 0.5 mg capsule 0.5 mg PO DAILY levothyroxine 88 mcg tablet 88 mcg PO DAILY sertraline 25 mg tablet 12.5 mg PO DAILY aspirin 81 mg Tablet,Chewable 81 mg PO QPM Discontinued cefuroxime axetil 500 mg tablet 500 mg PO BID Referrals / Follow Up: Wagner Gr MD [Primary Care Provider] - Disposition Disposition (needs filled in before D/C Order can be placed): Home Health Service Charges/Coding Visit Charges Inpatient E&M: 87470 Disch Hosp >30min
== END 2023-09-30 13:50 | disposition home health service (06) | DRG 603 ==
LOC: ED 21:02 → MS3 21:26
PROVIDERS: Admitting Provider Family Medicine; Emergency Provider Emergency Medicine; PCP Family Medicine; Visit Provider Hospitalist
DX: L03.116 Cellulitis of left lower limb (principal); C91.10 Chronic lymphocytic leukemia of B-cell type not having achieved remission; D70.9 Neutropenia, unspecified; D64.9 Anemia, unspecified; E03.9 Hypothyroidism, unspecified; K21.9 Gastro-esophageal reflux disease without esophagitis; E11.22 Type 2 diabetes mellitus with diabetic chronic kidney disease; F03.A0 Unspecified dementia, mild, without behavioral disturbance, psychotic disturbance, mood disturbance, and anxiety; F32.A Depression, unspecified; I12.9 Hypertensive chronic kidney disease with stage 1 through stage 4 chronic kidney disease, or unspecified chronic kidney disease; N18.9 Chronic kidney disease, unspecified; E78.00 Pure hypercholesterolemia, unspecified; I25.10 Atherosclerotic heart disease of native coronary artery without angina pectoris; F41.9 Anxiety disorder, unspecified; Z87.891 Personal history of nicotine dependence; Z95.5 Presence of coronary angioplasty implant and graft; R33.8 Other retention of urine; W55.03XA Scratched by cat, initial encounter; Z79.899 Other long term (current) drug therapy; Z79.82 Long term (current) use of aspirin; Z98.41 Cataract extraction status, right eye; Z98.42 Cataract extraction status, left eye; Z90.49 Acquired absence of other specified parts of digestive tract; Z85.51 Personal history of malignant neoplasm of bladder; Z78.9 Other specified health status; N40.1 Benign prostatic hyperplasia with lower urinary tract symptoms
CPT/HCPCS: 73701; 80048; 80053; 82962; 83036; 83605; 85025; 85027; 85652; 86140; 97110; 97116; 97162; 97166; 97802; 99252; 99285; J7030; J7040; J7050; Q9967; A4216; G0463; J0696

== ENCOUNTER 2023-12-25 18:23 | Inpatient (IN) | payer MEDICARE, SELFPAY ==
[2023-12-25] VITALS (13 sets, daily range): BP systolic 104–147; BP diastolic 58–79; PULSE 71–82; RESP 15–23; TEMP 36.6–36.8; O2SAT 84–96
--- NOTE | 2023-12-25 19:09 | EKG12_ITS ---
Test Reason : ALT LOC Blood Pressure : / mmHG Vent. Rate : 076 BPM Atrial Rate : 076 BPM P-R Int : 158 ms QRS Dur : 086 ms QT Int : 398 ms P-R-T Axes : 040 -28 033 degrees QTc Int : 447 ms Normal sinus rhythm Normal ECG Confirmed by Iker Stephen ([id number]), field map editor KELLY LEE ([id number]) on 12/27/2023 6:39:05 AM Referred By: Confirmed By:Iker Stephen
[2023-12-25] MEDS: 0.9% Normal Saline (1000mL) 1,000 ML 1000 ML IV (19:26)
[2023-12-25 19:31] LABS: Absolute Lymphocyte Count 3.39 X10^3/uL (0.83-4.51); Basophil# 0.02 X10^3/uL; Basophil% 0.4 % (0-1); Eosinophil# 0.04 X10^3/uL; Eosinophils% 0.9 % (0-5); Hematocrit 32.9 % (40-54); Hemoglobin 10.5 g/dL (13.0-16.5); Lymphocyte # 3.39 X10^3/ul (0.83-4.51); Lymphocyte % 73.2 % (19-41); Mean Corp Hgb Conc 31.9 g/dL (32-36); Mean Corpuscular Hgb 29.4 pg (27.0-32.0); Mean Corpuscular Volume 92.2 fL (80-94); Mean Platelet Vol. 8.9 fl (6.2-12.0); Monocyte# 0.09 X10^3/uL; Monocyte% 1.9 % (0-10); NRBC Flagged by Analyzer 0 % (0-5); Neutrophil # 1.04 X10^3/uL (2.7-7.7); Neutrophil % 22.5 % (47-70); Platelet Count 197 K/mm3 (150-450); RBC Distribution Width CV 14.5 % (11.6-14.6); RBC Distribution Width SD 48.6 fl (35.1-43.9); Red Blood Count 3.57 M/mm3 (4.6-6.2); White Blood Count 4.6 K/mm3 (4.4-11.0)
[2023-12-25 19:46] LABS: AST(SGOT) 23 U/L (15-37); Alanine Aminotransfer ALT/SGPT 11 U/L (16-61); Alkaline Phosphatase 79 U/L (45-117); Anion Gap 7 (5-15); BUN 24 mg/dL (7-18); BUN/Creat Ratio 20.5 RATIO (10-20); Calcium,Total 8.4 mg/dL (8.5-10.1); Chloride 104 mmol/L (98-107); Creatinine, Serum 1.17 mg/dL (0.70-1.30); EST Glomerular Filtration Rate 63 mL/min (>60); Est Glom Filt Rate - Afr Amer 76 mL/min (>60); Glucose 138 mg/dL (74-106); Sodium Level 135 mmol/L (136-145)
--- NOTE | 2023-12-25 20:00 | RAD_ITS ---
EXAM: XR CHEST, 2 VIEWS CLINICAL INDICATION: Bilateral rales TECHNIQUE: Frontal and lateral views of the chest. COMPARISON: 04/12/2023 FINDINGS: LUNGS AND PLEURAL SPACES: There is minimal right lower lobe airspace disease. No pneumothorax. No effusion. HEART: Unremarkable. Cardiac silhouette not enlarged. MEDIASTINUM: Central airways and mediastinal contour are unremarkable. BONES/JOINTS: Unremarkable. No acute fracture. SOFT TISSUES: Unremarkable. RAD/Chest PA and Lateral IMPRESSION: Minimal right lower lobe airspace disease which may represent atelectasis or early pneumonia. Electronically Signed: Ayad Caballero MD at 20:32 EDT ,
--- NOTE | 2023-12-25 20:01 | EDS_ITS ---
HPI History of Present Illness Chief Complaint: Alt LOC Detail of Chief Complaint: Altered mental status, 2 falls in the past 2 weeks, decreased p.o. intake Informant: patient and family Onset/Context/Timing Onset: Weeks (Declines slowly over 2 weeks worse since the weekend) Timing: Continuous and Waxes and wanes Quality: Altered mental status, poor p.o. intake, generalized weakness Location: Not applicable Current Severity: Unable to quantitate Maximum Severity: Unable to quantitate Worsened by: Family over his concern he has a UTI. He has had incontinence of stool, de Relieved by: Nothing Associated Symptoms Associated Symptoms: Explosive diarrhea 1-2 times a day Narrative Narrative: Patient is a 8-year-old male with history of type 2 diabetes, coronary disease with stent placement most recently February 2016, pure hypercholesterolemia, memory deficit, bladder mass, BPH and hypothyroidism he has had poor p.o. intake since last week. Has had 2 falls in the past 2 weeks. He has been more confused past several days. This is compared to baseline. He has had incontinence of stool. When asked to define incontinence of stool he does not have enough time to make it to the restroom. He is having 1-2 watery explosive diarrheas. He has not been on antibiotic in the past month. He has had no ill contacts. There is no blood in the stool. Stool is not maroon or black in color. He has not had incontinence of urine. Has had decreased urine output. Prior similar symptoms: Yes (UTI.) Recent Illness/Hospitalization: No PFSH PFSH Medical History Thrombocytopenia Acute on chronic anemia Type 2 diabetes mellitus with hyperglycemia Urinary retention Wears partial dentures Wears hearing aid Wears glasses Cancer Depression Anxiety Dementia Thyroid disease Arthritis High cholesterol Gastric reflux Former smoker History of echocardiogram Cardiology follow-up encounter Hard of hearing Memory deficit Pure hypercholesterolemia Essential hypertension Pneumonia due to COVID-19 virus Lymphoma Aneurysm of infrarenal abdominal aorta Left ventricular systolic dysfunction Stented coronary artery (~02/22/16) History of lateral wall myocardial infarction Atherosclerotic heart disease of [place] coronary artery without angina pectoris Type 2 diabetes mellitus Home Medications ?Medication ?Instructions ?Recorded ?Last Taken ?Type carvedilol 3.125 mg tablet 3.125 mg PO BID bp 01/29/20 01/04/23 History dutasteride 0.5 mg capsule 0.5 mg PO DAILY prostate 12/08/22 Unknown History levothyroxine 88 mcg tablet 88 mcg PO DAILY thyroid 12/26/22 12/30/22 History aspirin 81 mg chewable tablet 81 mg PO QPM heart health 09/26/23 09/25/23 History sertraline 25 mg tablet 12.5 mg PO DAILY 09/26/23 Unknown History doxycycline monohydrate 100 mg 100 mg PO BID 5 days #10 caps 09/30/23 Unknown Rx capsule Allergy/AdvReac Type Severity Reaction Status Date / Time Penicillins Allergy Hives Verified 12/25/23 18:26 tree and shrub pollen Allergy Other Verified 12/25/23 18:26 lisinopril AdvReac Mild cough Verified 12/25/23 18:26 Family History Father , age 39 from [place] CAD (coronary artery disease) Myocardial infarction Sudden cardiac Mother Diabetes Surgical History S/P inguinal hernia repair Hx of bilateral cataract extraction Hx of tonsillectomy Hx of cystoscopy Presence of coronary angioplasty implant and graft (~02/22/16) History of appendectomy History of left heart catheterization Social History household members: children Smoking Status: Former smoker how long ago did patient quit smokin years ago alcohol intake: current alcohol intake frequency: a few times a week Alcohol type: beer substance use type: does not use caffeine: Yes Type: coffee Number of servings: 2 ROS ROS ED Constitutional Constitutional ED: Reports chills; Denies fever(s), subjective or sweats Eyes Eyes: Denies blurry vision, change in vision or diplopia ENT ENT ED: Denies ear pain or rhinorrhea Cardiovascular Cardiovascular: Denies chest pain, orthopnea, palpitations or paroxysmal nocturnal dyspnea Respiratory/Chest Respiratory/Chest: Reports dyspnea; Denies cough, dyspnea on exertion, orthopnea, paroxysmal nocturnal dyspnea or sputum Gastrointestinal Gastrointestinal: Reports diarrhea; Denies abdominal pain, constipation, melena, nausea or vomiting Genitourinary Genitourinary ED: Denies dysuria, hematuria or urinary frequency Musculoskeletal Musculoskeletal: Denies arthralgias or myalgias Integumentary Denies rash Neurologic Neurologic: Reports weakness; Denies headache(s) or paresthesias Endocrine Endocrinology: Reports cold intolerance Hematologic/Lymphatic Hematologic/Lymphatic: Reports systems reviewed and no addt'l complaints, except as documented Allergic/Immunologic Allergic/Immunologic ED: Denies mouth swelling or tongue swelling EXAM Physical Exam Const Vital Signs: 12/25/23 18:23 12/25/23 19:49 12/25/23 20:10 Temperature 97.8 F 98.2 F 97.9 F Temperature Source Temporal Oral Oral Pulse Rate 82 72 71 Respiratory Rate 18 15 22 H Blood Pressure 104/63 117/58 L 147/62 H Blood Pressure Mean 76 77 90 Pulse Ox 95 92 Oxygen Delivery Method Room Air Nasal Cannula Oxygen Flow Rate (L/min) 2 12/25/23 21:00 Temperature 98 F Temperature Source Oral Pulse Rate 75 Respiratory Rate 23 H Blood Pressure 137/74 H Blood Pressure Mean 95 Pulse Ox Oxygen Delivery Method Oxygen Flow Rate (L/min) Positive well nourished and well developed Constitutional Narrative: Patient appears ill. He is slow to response. He is oriented, however. General Appearance ED: well developed; Negative for diaphoretic HEENT Reports dry mucous membranes HEENT Narrative: Head is atraumatic no cephalic. Ears normal. Hearing aids noted. Nares patent. Posterior pharynx out erythema or exudate. Mouth ED: Yes dry mucous membranes Mouth: dry mucous membranes Eyes PERRL and EOMs intact bilaterally General Eye ED: Negative for pale conjunctiva or scleral icterus Neck no lymphadenopathy, supple and no JVD Chest Wall inspection of chest normal Resp normal respiratory effort and No clear to auscultation bilaterally Auscultation: rales bilateral base Cardio regular rate, regular rhythm, S1 normal heart sound and no murmurs GI normal to inspection, nondistended, normoactive bowel sounds, non-tender, non- distended and no masses; Negative for hepatosplenomegaly Auscultation: normoactive bowel sounds Palpation: soft Back/Spine no CVA tenderness Thoracic Spine / Upper Back: Negative for thoracic spinal tenderness Lumbar Spine / Lower Back: Negative for lumbar spinal tenderness Extremity General Extremety ED: Negative for edema or tenderness General Extremity: Negative for edema Neuro oriented x3 and CN's II-XII intact bilaterally Neuro Narrative: He is awake but not alert. He moves all extremities. Sensorium / Orientation: Negative for alert Psych Mood & Affect: depressed Skin Skin Narrative: Abrasions noted and bruising lower extremity exam area MDM MDM MDM Narrative Medical decision making narrative: Differential diagnosis would be failure to thrive, urinary tract infection, with bilateral rales may represent pneumonia, exacerbation of his memory deficits. Workup was undertaken which included chest x-ray, appropriate blood work and urinalysis. In light of chest x-ray lactate was ordered. Since patient at this time does not qualify for sepsis and does not require emergent antibiotic and menstruation will wait for lactate to determine if blood cultures are needed and at that time will order antibiotics. Lab Data Attestation: I reviewed the patient's lab results. Lab results narrative: White count is normal. Patient is anemic with normal indices. There is slight shift with 73% segs. Competence of metabolic panel is marked for glucose of 138 with a normal CO2 anion gap. BUN is elevated with a BUN to creatinine ratio of 21. Lactate is normal. Therefore blood cultures were not obtained. She was started on levofloxacin since he reports hives to penicillin. Family has been made aware of plan and test results. Labs: Laboratory Results - last 24 hr 12/25/23 12/25/23 19:20 20:50 WBC 4.6 RBC 3.57 L Hgb 10.5 L Hct 32.9 L MCV 92.2 MCH 29.4 MCHC 31.9 L RDW Std Deviation 48.6 H RDW Coeff of Lamont 14.5 Plt Count 197 MPV 8.9 Immature Gran % (Auto) 1.100 H Neut % (Auto) 22.5 L Lymph % (Auto) 73.2 H Kay % (Auto) 1.9 Eos % (Auto) 0.9 Baso % (Auto) 0.4 Absolute Neuts (auto) 1.0 L Absolute Lymphs (auto) 3.39 Nucleated RBC % 0 Sodium 135 L Potassium 4.0 Chloride 104 Carbon Dioxide 24.0 Anion Gap 7 BUN 24 H Creatinine 1.17 Est GFR (MDRD) Af Amer 76 Est GFR (MDRD) Non-Af 63 BUN/Creatinine Ratio 20.5 H Glucose 138 H Lactic Acid 0.7 Calcium 8.4 L Total Bilirubin 0.60 AST 23 ALT 11 L Alkaline Phosphatase 79 Total Protein 6.0 L Albumin 3.0 L Globulin 3.0 Albumin/Globulin Ratio 1.0 TSH 3.680 Radiography Chest X-Ray - ED: 2 View and Read by ED Physician (The right heart border is obscured compared to single view x-ray obtained April 12, 2023. Findings are consistent with right lower lobe pneumonia. Osseous structures are unremarkable. Cardiac size is normal.) Diagnostic Testing: Clinical Impression(s) from Imaging Studies Chest X-Ray 12/25/23 20:00 IMPRESSION: Minimal right lower lobe airspace disease which may represent atelectasis or early pneumonia. Electronically Signed: Ayad Caballero MD at 20:32 EDT , Management Discussion w/another healthcare provider: Hospitalist (Hospitalist was paged for admission for community-acquired pneumonia and encephalopathy.) Discharge Plan Dx/Rx/DC Orders Clinical Impression: Right lower lobe pneumonia, Type 2 diabetes mellitus, Hypothyroidism, Infectious encephalopathy, Adult failure to thrive, History of coronary artery disease Disposition Disposition: Acute Care Hospital [facility]
[2023-12-25 21:23] LABS: Lactic Acid 0.7 mmol/L (0.4-1.9)
--- NOTE | 2023-12-25 21:48 | PCM.HP.STD ---
[facility] - General General Date of Admission: 12/26/23 Date of Service: 12/25/23 Chief Complaint: Diarrhea, AMS and Frequent Falls. HPI Narrative ERMELINDA DIEGO, is a 88 M with a past medical history of essential hypertension, hyperlipidemia, hypothyroidism, former tobacco abuse (quit ~30 years ago), chronic dementia, DM-2; of unknown control, CAD; s/p lateral wall STEMI with stent (2016), chronic anemia, history of thrombocytopenia, history of bladder mass, history of lymphoma, history of COVID-19 PNA, history of aneurysm of infrarenal abdominal aorta, history of inguinal hernia; s/p repair, history of appendectomy, history of bilateral cataract extraction, BPH, overactive bladder, depression, GERD and OA who presents to [facility] ER with his family noting diarrhea, altered mental status and frequent falls. Mr. Diego is not a reliable historian at this time so information was gathered from chart, medical staff and computer. According to the records the patient has been on a slow but steady clinical decline over the past 2 weeks with a [id number] course that has acutely worsened over the past 2 days. His family also reports 2 falls in the past 2 weeks and decreased oral intake so they were concerned for a possible UTI. He also has had incontinence of stool with explosive diarrhea 1-2 times per day. His family denies him being on antibiotics for the past month and they also denies sick contacts or blood in stool. They admit to decreased urinary output but they denied gross red or maroon blood in stools or dark stools. They state he has had similar admissions to the hospital in the past for underlying infection. The patient admits to associated chills, shortness of breath and generalized weakness with frequent falls and decreased appetite with cold intolerance. He denies related fever, nausea, vomiting, abdominal pain, chest pain, cough, dysuria, arthralgias, myalgias, headache or paresthesias. In the ER he was noted to have a Right lower lobe infiltrate consistent with suspected pneumonia complicated by clinical evidence of respiratory insufficiency and acute infectious encephalopathy in the setting of previously known chronic dementia compounded by generalized weakness with ambulatory dysfunction and frequent falls and he was then admitted to the PCU for ongoing care for stay that is expected to extend beyond 2 midnights. [facility] Medical History Thrombocytopenia Acute on chronic anemia Type 2 diabetes mellitus with hyperglycemia Urinary retention Wears partial dentures Wears hearing aid Wears glasses Cancer Depression Anxiety Dementia Thyroid disease Arthritis High cholesterol Gastric reflux Former smoker History of echocardiogram Cardiology follow-up encounter Hard of hearing Memory deficit Pure hypercholesterolemia Essential hypertension Pneumonia due to COVID-19 virus Lymphoma Aneurysm of infrarenal abdominal aorta Left ventricular systolic dysfunction Stented coronary artery (~02/22/16) History of lateral wall myocardial infarction Atherosclerotic heart disease of [place] coronary artery without angina pectoris Type 2 diabetes mellitus Home Medications ?Medication ?Instructions ?Recorded ?Last Taken ?Type carvedilol 3.125 mg tablet 3.125 mg PO BID bp 01/29/20 01/04/23 History dutasteride 0.5 mg capsule 0.5 mg PO DAILY prostate 12/08/22 Unknown History levothyroxine 88 mcg tablet 88 mcg PO DAILY thyroid 12/26/22 12/30/22 History aspirin 81 mg chewable tablet 81 mg PO QPM heart health 09/26/23 09/25/23 History sertraline 25 mg tablet 12.5 mg PO DAILY 09/26/23 Unknown History Allergy/AdvReac Type Severity Reaction Status Date / Time Penicillins Allergy Hives Verified 12/25/23 18:26 tree and shrub pollen Allergy Other Verified 12/25/23 18:26 lisinopril AdvReac Mild cough Verified 12/25/23 18:26 Family History Father , age 39 from [place] CAD (coronary artery disease) Myocardial infarction Sudden cardiac Mother Diabetes Surgical History S/P inguinal hernia repair Hx of bilateral cataract extraction Hx of tonsillectomy Hx of cystoscopy Presence of coronary angioplasty implant and graft (~02/22/16) History of appendectomy History of left heart catheterization Social History household members: children Smoking Status: Former smoker how long ago did patient quit smokin years ago alcohol intake: current alcohol intake frequency: a few times a week Alcohol type: beer substance use type: does not use caffeine: Yes Type: coffee Number of servings: 2 ROS ROS Narrative Full review of systems was not possible due to patient's infectious encephalopathy. Vital Signs Vital Signs Vital Signs: 12/25/23 18:23 12/25/23 19:49 12/25/23 20:10 Temperature 97.8 F 98.2 F 97.9 F Temperature Source Temporal Oral Oral Pulse Rate 82 72 71 Respiratory Rate 18 15 22 H Blood Pressure 104/63 117/58 L 147/62 H Blood Pressure Mean 76 77 90 Pulse Ox 95 92 Oxygen Delivery Method Room Air Nasal Cannula Oxygen Flow Rate (L/min) 2 12/25/23 21:00 Temperature 98 F Temperature Source Oral Pulse Rate 75 Respiratory Rate 23 H Blood Pressure 137/74 H Blood Pressure Mean 95 Pulse Ox Oxygen Delivery Method Oxygen Flow Rate (L/min) Physical Exam Const alert Constitutional Narrative: Patient is confused and chronically ill-appearing. General Appearance: cooperative Orientation / Consciousness: confused HEENT normocephalic, head/scalp atraumatic and hearing grossly normal bilaterally HEENT Narrative: Mucous membranes dry. Eyes PERRL and EOMs intact bilaterally Neck no lymphadenopathy and supple Resp Resp Narrative: Diminished breath sounds over Right lower lobe. Cardio regular rate and regular rhythm GI normal to inspection, nondistended, normoactive bowel sounds, soft to palpation, non-tender and non-distended Extremity normal to inspection and full ROM Skin Skin Narrative: Patient has no evidence of rash, jaundice or abscess. Neuro CN's II-XII intact bilaterally, moves all extremities and no focal motor deficits Neuro Narrative: Patient is alert but lethargic Sensorium / Orientation: awake, alert, oriented to person and oriented to place Speech: speech normal Psych affect normal Results Medical Records Data Attestation: I reviewed the patient's medical records Lab / Micro Data Attestation: I reviewed the patient's lab results. 12/25/23 19:20 12/25/23 19:20 Labs: Laboratory Results - last 24 hr 12/25/23 19:20: WBC 4.6, RBC 3.57 L, Hgb 10.5 L, Hct 32.9 L, MCV 92.2, MCH 29.4, MCHC 31.9 L, RDW Std Deviation 48.6 H, RDW Coeff of Lamont 14.5, Plt Count 197, MPV 8.9, Immature Gran % (Auto) 1.100 H, Neut % (Auto) 22.5 L, Lymph % (Auto) 73.2 H, [place] % (Auto) 1.9, Eos % (Auto) 0.9, Baso % (Auto) 0.4, Absolute Neuts (auto) 1.0 L, Absolute Lymphs (auto) 3.39, Nucleated RBC % 0, Sodium 135 L, Potassium 4.0, Chloride 104, Carbon Dioxide 24.0, Anion Gap 7, BUN 24 H, Creatinine 1.17, Est GFR (MDRD) Af Amer 76, Est GFR (MDRD) Non-Af 63, BUN/Creatinine Ratio 20.5 H, Glucose 138 H, Calcium 8.4 L, Total Bilirubin 0.60, AST 23, ALT 11 L, Alkaline Phosphatase 79, Total Protein 6.0 L, Albumin 3.0 L, Globulin 3.0, Albumin/Globulin Ratio 1.0, TSH 3.680 12/25/23 20:50: Lactic Acid 0.7 Imaging Radiology Impression Chest X-Ray 12/25/23 20:00 IMPRESSION: Minimal right lower lobe airspace disease which may represent atelectasis or early pneumonia. Electronically Signed: Ayad Caballero MD at 20:32 EDT , [facility] Imaging Services [address] [place] [id number] Chest, Abd, Pelvis WO Cont MR#: [id number] Acct: [id number] Name: ERMELINDA DIEGO Rep #: [id number] : 1935 M 88 From: Ayad Caballero MD PCP: Dr. Wagner Gr MD Status: ADM IN Study: CT Chest, Abd, Pelvis WO Cont Date of Exam: 12/25/23 Exam# [id number] Ordering Dr: Lokesh Pineda DO EXAM: CT CHEST, ABDOMEN AND PELVIS WITHOUT INTRAVENOUS CONTRAST CLINICAL INDICATION: Diarrhea; evaluate for colitis. Plus h/o AAA. TECHNIQUE: Helically acquired images were obtained of the chest, abdomen and pelvis without intravenous contrast. This CT exam was performed using one or more of the following dose reduction techniques: automated exposure control, adjustment of the mA and/or kV according to patient size, and/or use of iterative reconstruction technique. COMPARISON: No relevant prior studies available. FINDINGS: CHEST: LUNGS AND PLEURAL SPACES: There is scarring and fibrosis in the lung bases. There is a 9 mm pleural-based nodule in the left lower lobe. There is no focal consolidation. No pneumothorax. HEART: There are coronary artery calcifications. Heart size is normal. No pericardial effusion. MEDIASTINUM: See below. THYROID: Unremarkable. No thyroid lesions. ABDOMEN: LIVER: Unremarkable. Homogeneous. GALLBLADDER AND BILE DUCTS: Unremarkable. No calcified gallstones. No gallbladder distention or wall edema. No intra- or extrahepatic biliary ductal dilation. PANCREAS: Unremarkable. No focal cystic mass. SPLEEN: Unremarkable. Normal size without focal cystic or solid mass. ADRENALS: Unremarkable. No nodules. KIDNEYS AND URETERS: Unremarkable. Normal renal size and position. No hydronephrosis. STOMACH AND BOWEL: There is mild thickening of the wall of the sigmoid colon. There is no obvious inflammation. No stomach or bowel distention. PELVIS: APPENDIX: No evidence of acute appendicitis. BLADDER: Unremarkable. REPRODUCTIVE: Unremarkable as visualized. No mass. CHEST, ABDOMEN and PELVIS: INTRAPERITONEAL SPACE: Unremarkable. No ascites or other fluid collection. No free air. BONES/JOINTS: Unremarkable. No suspicious lytic or blastic abnormality. SOFT TISSUES: Unremarkable. No discrete abdominal or pelvic wall hernia. VASCULATURE: See above. LYMPH NODES: There is extensive adenopathy in the supraclavicular soft tissues, superior mediastinum, axilla, pretracheal space, aorticopulmonary window as well and subcarinal space. The largest node in the pretracheal space measures 2.1 x 2.7 cm. There is scattered retroperitoneal adenopathy with the largest node on the left measuring 2.1 x 1.1. There is a retrocrural lymph node in right head measures 1.[address]/CT Chest, Abd, Pelvis WO Cont IMPRESSION: 1. Extensive adenopathy within the chest and abdomen possibly due to lymphoma. This is greater in the chest than in the abdomen. 2. Minimal thickening of the wall the distal sigmoid colon possibly due to colitis. There is no obvious inflammation surrounding mesentery. No other acute abnormalities in the chest, abdomen or pelvis. Electronically Signed: Ayad Caballero MD at 0:03 EDT , CC: Dr. Lokesh Pineda, ; Dr. Wagner Gr MD ~ [facility]: Signed Assessment & Plan Assessment/Plan (1) Multifocal pneumonia: (2) Diarrhea: QUALIFIERS: Diarrhea type: presumed infectious Qualified Code(s): R19.7 - Diarrhea, unspecified (3) Infectious encephalopathy: (4) Chronic dementia: (5) Generalized weakness: (6) Ambulatory dysfunction: (7) History of abdominal aortic aneurysm: (8) Type 2 diabetes mellitus: QUALIFIERS: Diabetes mellitus complication status: without complication Diabetes mellitus termite control representative insulin use: without termite control representative use Qualified Code(s): E11.9 - Type 2 diabetes mellitus without complications PLAN: Plan 1. Right lower lobe infiltrate consistent with suspected pneumonia - Admit to PCU. Continue broad-spectrum antibiotics and await culture and sensitivity data. Check CT scan of chest without contrast to confirm pneumonia suspected on CXR. Check urine antigens for Legionella and Streptococcus pneumonia. Give Tylenol as needed pain or fever. 2. Explosive Diarrhea with minimal wall thickening of the distal sigmoid colon suggetive of colitis complicating #1 - Check stool studies and place on enteric precautions. 3. Acute infectious encephalopathy in the setting of previously known chronic dementia attributable to #1 & #2 - TSH in normal range. Check UDS, B12 and Folate levels to evaluate for potentially reversible causes of confusion. Minimize TIMBER SPOTTER active medications. Otherwise, continue supportive care and monitor for improvement. 4. Generalized weakness with ambulatory dysfunction and frequent falls arising from #1 - #3 - PT/OT and Case Management to consult and treat on-rounds in AM with help appreciated in advance. 5. History of Lymphoma with extensive adenopathy noted within the chest and abdomen suggesting recurrence adding to the medical complexity of #1 - #4 - We will consult oncology to see this admission on-rounds in the AM for further recommendations with help appreciated in advance. 6. Essential hypertension - Maintain current regimen plus give prn IV Hydralazine for systolic blood pressure > 160 mmHg. 7. Hyperlipidemia - Hold statin in case of myotoxicity contributing to #4. 8. Hypothyroidism - Continue Synthroid as previous. 9. Former tobacco abuse (quit ~30 years ago) - Noted. 10. DM-2; of unknown control - ADA/Cardiac diet. FSBS q. AC/HS plus SSI. Check HgbA1c to objectively evaluate quality of diabetic control. 11. CAD; s/p lateral wall STEMI with stent (2016) - Stable. 12. Chronic anemia - Stable with hemoglobin of 10.5 g/dL present on admission. 13. History of thrombocytopenia - Stable with platelet count 197K present on admission. 14. History of bladder mass - Noted. 15. History of lymphoma - Noted. 16. History of COVID-19 PNA - Noted. 17. History of aneurysm of infrarenal abdominal aorta - Check CT abdomen and pelvis this admission to reevaluate. 18. History of inguinal hernia; s/p repair - Noted. 19, History of appendectomy - Noted. 20. History of bilateral cataract extraction - Noted for the sake of completeness. 21. BPH; with overactive bladder - Noted. 22. Depression - Continue Sertraline as previous. 23. GERD - Apparently stable with patient not on PPI or H2-nelly at this time. 24. OA - Give Tylenol prn. 25. DVT prophylaxis - Lovenox 40 mg subcu daily plus SCDs in light of poor mobility. Total time: Approximately 75 minutes. Charges/Coding Visit Charges Inpatient E&M: 65181 Init Hosp L3
[2023-12-25] MEDS: levoFLOXacin IV 750 MG/150 ML BAG 100 MG IV (21:50)
--- NOTE | 2023-12-25 21:59 | ED.RN ---
rac iv infiltrated. restarted on l later ac.
--- NOTE | 2023-12-25 22:17 | CT_ITS ---
EXAM: CT CHEST, ABDOMEN AND PELVIS WITHOUT INTRAVENOUS CONTRAST CLINICAL INDICATION: Diarrhea; evaluate for colitis. Plus h/o AAA. TECHNIQUE: Helically acquired images were obtained of the chest, abdomen and pelvis without intravenous contrast. This CT exam was performed using one or more of the following dose reduction techniques: automated exposure control, adjustment of the mA and/or kV according to patient size, and/or use of iterative reconstruction technique. COMPARISON: No relevant prior studies available. FINDINGS: CHEST: LUNGS AND PLEURAL SPACES: There is scarring and fibrosis in the lung bases. There is a 9 mm pleural-based nodule in the left lower lobe. There is no focal consolidation. No pneumothorax. HEART: There are coronary artery calcifications. Heart size is normal. No pericardial effusion. MEDIASTINUM: See below. THYROID: Unremarkable. No thyroid lesions. ABDOMEN: LIVER: Unremarkable. Homogeneous. GALLBLADDER AND BILE DUCTS: Unremarkable. No calcified gallstones. No gallbladder distention or wall edema. No intra- or extrahepatic biliary ductal dilation. PANCREAS: Unremarkable. No focal cystic mass. SPLEEN: Unremarkable. Normal size without focal cystic or solid mass. ADRENALS: Unremarkable. No nodules. KIDNEYS AND URETERS: Unremarkable. Normal renal size and position. No hydronephrosis. STOMACH AND BOWEL: There is mild thickening of the wall of the sigmoid colon. There is no obvious inflammation. No stomach or bowel distention. PELVIS: APPENDIX: No evidence of acute appendicitis. BLADDER: Unremarkable. REPRODUCTIVE: Unremarkable as visualized. No mass. CHEST, ABDOMEN and PELVIS: INTRAPERITONEAL SPACE: Unremarkable. No ascites or other fluid collection. No free air. BONES/JOINTS: Unremarkable. No suspicious lytic or blastic abnormality. SOFT TISSUES: Unremarkable. No discrete abdominal or pelvic wall hernia. VASCULATURE: See above. LYMPH NODES: There is extensive adenopathy in the supraclavicular soft tissues, superior mediastinum, axilla, pretracheal space, aorticopulmonary window as well and subcarinal space. The largest node in the pretracheal space measures 2.1 x 2.7 cm. There is scattered retroperitoneal adenopathy with the largest node on the left measuring 2.1 x 1.1. There is a retrocrural lymph node in right head measures 1.[address]/CT Chest, Abd, Pelvis WO Cont IMPRESSION: 1. Extensive adenopathy within the chest and abdomen possibly due to lymphoma. This is greater in the chest than in the abdomen. 2. Minimal thickening of the wall the distal sigmoid colon possibly due to colitis. There is no obvious inflammation surrounding mesentery. No other acute abnormalities in the chest, abdomen or pelvis. Electronically Signed: Ayad Caballero MD at 0:03 EDT ,
[2023-12-25 23:04] LABS: Magnesium 1.9 mg/dL (1.6-2.6); Phosphorus 3.4 mg/dL (2.5-4.9)
--- NOTE | 2023-12-25 23:55 | ED.RN ---
sandra garcia left for the night. she left instructions to call her or Elena (both on contact list) with any admission questions.
[2023-12-26 00:30] VITALS: BMI 23.0
[2023-12-26 00:47] VITALS: BP 129/80; PULSE 73; RESP 16; TEMP 36.3; O2SAT 93
[2023-12-26] MEDS: 0.9% Normal Saline (1000mL) 1,000 ML 70 ML IV (00:58)
[2023-12-26] MEDS: metroNIDAZOLE 500 MG/100 ML BAG 100 MG IV ×4 (01:00→20:13)
[2023-12-26] MEDS: Vancomycin HCl 1,750 MG in 0.9% Normal Saline (500mL Bag) 500 ML 250 MG IV (01:52)
[2023-12-26] MEDS: 0.9% Saline Lock 10 ML Syringe IV ×5 (01:53→20:13)
--- NOTE | 2023-12-26 02:17 | PCM.RX.CS ---
Consult Antibiotic Management Pharmacy has been consulted to manage selected antibiotic: Vancomycin Type of Intervention Type of Consult: New start Labs Labs: Sodium 135 mmol/L (136-145) L 12/25/23 19:20 Potassium 4.0 mmol/L (3.5-5.1) 12/25/23 19:20 Chloride 104 mmol/L (98-107) 12/25/23 19:20 Carbon Dioxide 24.0 mmol/L (21.0-32.0) 12/25/23 19:20 Anion Gap 7 (5-15) 12/25/23 19:20 BUN 24 mg/dL (7-18) H 12/25/23 19:20 Creatinine 1.17 mg/dL (0.70-1.30) 12/25/23 19:20 Est GFR (MDRD) Af Amer 76 mL/min (>60) 12/25/23 19:20 Est GFR (MDRD) Non-Af 63 mL/min (>60) 12/25/23 19:20 BUN/Creatinine Ratio 20.5 RATIO (10-20) H 12/25/23 19:20 Glucose 138 mg/dL (74-106) H 12/25/23 19:20 Microbiology Microbiology: Microbiology 12/26/23 01:00 Stool Stool Lactoferrin - Final Dosing Weight Weight used for dosin.7 kg Estimated Creatinine Clearance Estimated Creatinine Clearance: 46.5 Goal Trough Goal Trough: 15-20 mcg/mL Pharmacy Plan for Drug Dosing Pharmacy Plan for Drug Dosing: Pharmacy Service will continue to monitor and adjust dosing as required. 1750 LOADING DOSE 12/25 @ 0152. 500MG Q12H TROUGH PRIOR TO 4TH DOSE Follow-Up Labs Follow-Up Labs: Trough: Vancomycin Date/Time Labs Ordered Labs to be done on [date and time ordered]: 12/26 @ 3017
[2023-12-26 04:29] LABS: Bacteria 0 SEEN /hpf (None Seen); Mucous, Urine 0 SEEN /hpf (<or=2+); Red Blood Cells-Urine 0 SEEN /hpf (0-5); Squamous Epithelial Cells - UA 0 SEEN /hpf (0-5); White Blood Cells 0 SEEN /hpf (0-5)
[2023-12-26 04:39] VITALS: BMI 23.0
[2023-12-26 04:56] LABS: Color, Urine Yellow (Yellow); Glucose, Dipstick Normal (Normal); Ketone-Dipstick Negative (Negative); Leukocyte Esterase-Dipstick Negative /ul (Negative); Nitrite-Dipstick Negative (Negative); Occult Blood-Urine Negative /ul (Negative); Protein-Dipstick Negative (Negative); Specific Gravity, Urine 1.015 (1.002-1.030); Urine Bilirubin Dipstick Negative (Negative); Urine Clarity Clear (Clear); Urine Urobilinogen Normal (Normal)
[2023-12-26 06:03] LABS: Absolute Lymphocyte Count 2.76 X10^3/uL (0.83-4.51); Absolute Neutrophil Count 0.8 X10^3/uL (2.0-7.7); Basophil# 0.02 X10^3/uL; Basophil% 0.5 % (0-1); Eosinophil# 0.04 X10^3/uL; Eosinophils% 1.1 % (0-5); Hematocrit 30.8 % (40-54); Hemoglobin 9.8 g/dL (13.0-16.5); Lymphocyte # 2.76 X10^3/ul (0.83-4.51); Lymphocyte % 75.2 % (19-41); Mean Corp Hgb Conc 31.8 g/dL (32-36); Mean Corpuscular Hgb 29.3 pg (27.0-32.0); Mean Corpuscular Volume 91.9 fL (80-94); Mean Platelet Vol. 8.6 fl (6.2-12.0); Monocyte# 0.07 X10^3/uL; Monocyte% 1.9 % (0-10); NRBC Flagged by Analyzer 0 % (0-5); Neutrophil # 0.75 X10^3/uL (2.7-7.7); Neutrophil % 20.5 % (47-70); POSITIVE DIFFERENTIAL YES; Platelet Count 166 K/mm3 (150-450); RBC Distribution Width CV 14.4 % (11.6-14.6); RBC Distribution Width SD 48.6 fl (35.1-43.9); Red Blood Count 3.35 M/mm3 (4.6-6.2); White Blood Count 3.7 K/mm3 (4.4-11.0)
[2023-12-26 06:09] LABS: Differential Indicated SCAN CRITERIA MET
[2023-12-26 06:13] LABS: Amphetamine Urine VISTA NEGATIVE (<1000 ng/mL); Barbiturate Urine VISTA NEGATIVE (< 200 ng/mL); Benzodiazepine Urine VISTA NEGATIVE (< 200 ng/mL); Cocaine Urine VISTA NEGATIVE (< 300 ng/mL); Ecstacy Urine VISTA NEGATIVE (< 500 ng/mL); Methadone Urine VISTA NEGATIVE (< 300 ng/mL); PCP Urine VISTA NEGATIVE (< 25 ng/mL); THC Urine VISTA NEGATIVE (< 50 ng/mL); Vista UDS pH Range 5
[2023-12-26 06:37] LABS: AST(SGOT) 18 U/L (15-37); Alanine Aminotransfer ALT/SGPT 8 U/L (16-61); Albumin, Serum 2.6 g/dL (3.2-5.0); Alkaline Phosphatase 69 U/L (45-117); Anion Gap 5 (5-15); BUN 17 mg/dL (7-18); BUN/Creat Ratio 19.4 RATIO (10-20); Chloride 108 mmol/L (98-107); Creatinine, Serum 0.88 mg/dL (0.70-1.30); EST Glomerular Filtration Rate 88 mL/min (>60); Est Glom Filt Rate - Afr Amer 106 mL/min (>60); Estimated Creatinine Clearance 61.96 ml/min; Globulin 2.7 g/dL (2.2-4.2); Glucose 121 mg/dL (74-106); Magnesium 1.8 mg/dL (1.6-2.6); Phosphorus 2.8 mg/dL (2.5-4.9); Potassium 3.8 mmol/L (3.5-5.1); Protein, Total 5.3 g/dL (6.4-8.2); Sodium Level 137 mmol/L (136-145)
[2023-12-26] MEDS: Levothyroxine 88 MCG Tablet PO (06:41)
[2023-12-26 06:49] VITALS: BP 111/76; PULSE 67; RESP 18; TEMP 36.4; O2SAT 92
[2023-12-26 07:11] LABS: Bedside Glucose 114 mg/dL (74-106)
[2023-12-26 07:14] LABS: Differential Comment SCANNED
--- NOTE | 2023-12-26 08:51 | ONC.CONSULT ---
Assessment & Plan Assessment/Plan (1) Small lymphocytic lymphoma: Status: Chronic Code(s): C83.00 - Small cell B-cell lymphoma, unspecified site Plan: This is a chronic indolent malignancy that is not treated with systemic therapy unless symptomatic. We do not have patient's [facility] records to review treatment history, if any was given, but this is not an acute illness that needs to be addressed during this acute hospital admission. The patient is demented and does not recall any details about his treatment nor his last follow-up with Dr. Dawn. I would advise a follow-up after discharge and resolution of his acute illness with Dr. Dawn. If the family with power of account resolution specialist right (patient is demented) wishes to transfer his care to [facility] we would be happy to see him here. (2) Pancytopenia: Status: Chronic Code(s): D61.818 - Other pancytopenia Plan: Mild, chronic, probably related to underlying bone marrow disease and superadded acute illness. His blood counts do not warrant any blood product transfusion. HPI Consult Data Date of Service:: 12/26/23 PCP / Referring Provider: Dr. Wagner Gr MD Attending: Dr. Catalina Sanchez MD Chief Complaint Chief Complaint: Diarrhea, falls History of Present Illness History of Present Illness: 88-year-old male admitted with acute illness manifested by diarrhea, altered mental status and frequent falls. Patient has multiple chronic medical problems as listed under his medical history. 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 Dawn at [facility]. Records of treatment given, if any, is not available. Advanced Directives Power of Automation Engineer: Yes Living Will: Yes [facility] Medical History (Updated 12/26/23 @ 09:[address] Rufino Kee MD) Pancytopenia Small lymphocytic lymphoma Thrombocytopenia Acute on chronic anemia Type 2 diabetes mellitus with hyperglycemia Urinary retention Wears partial dentures Wears hearing aid Wears glasses Cancer Depression Anxiety Dementia Thyroid disease Arthritis High cholesterol Gastric reflux Former smoker History of echocardiogram Cardiology follow-up encounter Hard of hearing Memory deficit Pure hypercholesterolemia Essential hypertension Pneumonia due to COVID-19 virus Lymphoma Aneurysm of infrarenal abdominal aorta Left ventricular systolic dysfunction Stented coronary artery (~02/22/16) 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 Type 2 diabetes mellitus Home Medications ?Medication ?Instructions ?Recorded ?Last Taken ?Type carvedilol 3.125 mg tablet 3.125 mg PO BID bp 01/29/20 01/04/23 History dutasteride 0.5 mg capsule 0.5 mg PO DAILY prostate 12/08/22 Unknown History levothyroxine 88 mcg tablet 88 mcg PO DAILY thyroid 12/26/22 12/30/22 History aspirin 81 mg chewable tablet 81 mg PO QPM heart health 09/26/23 09/25/23 History sertraline 25 mg tablet 12.5 mg PO DAILY 09/26/23 Unknown History Allergy/AdvReac Type Severity Reaction Status Date / Time Penicillins Allergy Hives Verified 12/25/23 18:26 tree and shrub pollen Allergy Other Verified 12/25/23 18:26 lisinopril AdvReac Mild cough Verified 12/25/23 18:26 Family History Father , age 39 from [place] CAD (coronary artery disease) Myocardial infarction Sudden cardiac Mother Diabetes Surgical History S/P inguinal hernia repair Hx of bilateral cataract extraction Hx of tonsillectomy Hx of cystoscopy Presence of coronary angioplasty implant and graft (~02/22/16) History of appendectomy History of left heart catheterization Social History household members: children Smoking Status: Former smoker how long ago did patient quit smokin years ago alcohol intake: current alcohol intake frequency: a few times a week Alcohol type: beer substance use type: does not use caffeine: Yes Type: coffee Number of servings: 2 ROS ROS Narrative Patient is demented, credible review of systems is not obtainable. He knew he was in [facility], he believed it was for a hernia, he recalled Dr. Dawn name but could not provide whether he received any systemic therapy or not and when was his last follow-up. He denied being in pain or any discomfort when I examined him. Physical Exam Narrative Elderly, frail, confused and time and with a poor recent memory recall, ECOG 3-4 Const no apparent distress Orientation / Consciousness: oriented to person and oriented to place; Negative for oriented to time Neck no JVD Neck Narrative: Patient has generalized lymphadenopathy General: lymphadenopathy GI soft to palpation, non-tender and no masses Extremity no pedal edema Psych cooperative Vital Signs Temperature 97.5 F L 12/26/23 06:49 Temperature Source Temporal 12/26/23 06:49 Pulse Rate 67 12/26/23 06:49 Respiratory Rate 18 12/26/23 06:49 Respiratory Effort Normal, Non-Labored 12/26/23 00:43 Respiratory Depth Normal 12/26/23 00:43 Respiratory Pattern Normal 12/26/23 00:43 Blood Pressure 111/76 12/26/23 06:49 Blood Pressure Mean 87 12/26/23 06:49 Blood Pressure Source Monitor 12/26/23 06:49 Blood Pressure Position Semi-Fowlers 12/26/23 06:49 Blood Pressure Location Right Arm 12/26/23 06:49 Pulse Ox 92 12/26/23 06:49 Oxygen Delivery Method Nasal Cannula 12/26/23 06:49 Oxygen Flow Rate (L/min) 3 12/26/23 06:49 Laboratory Results - last 24 hr 12/25/23 19:20: WBC 4.6, RBC 3.57 L, Hgb 10.5 L, Hct 32.9 L, MCV 92.2, MCH 29.4, MCHC 31.9 L, RDW Std Deviation 48.6 H, RDW Coeff of [place] 14.5, Plt Count 197, MPV 8.9, Immature Gran % (Auto) 1.100 H, Neut % (Auto) 22.5 L, Lymph % (Auto) 73.2 H, [place] % (Auto) 1.9, Eos % (Auto) 0.9, Baso % (Auto) 0.4, Absolute Neuts (auto) 1.0 L, Absolute Lymphs (auto) 3.39, Nucleated RBC % 0, Sodium 135 L, Potassium 4.0, Chloride 104, Carbon Dioxide 24.0, Anion Gap 7, BUN 24 H, Creatinine 1.17, Est GFR (MDRD) Af Amer 76, Est GFR (MDRD) Non-Af 63, BUN/Creatinine Ratio 20.5 H, Glucose 138 H, Calcium 8.4 L, Phosphorus 3.4, Magnesium Cancelled 12/25/23 19:20: Magnesium 1.9, Total Bilirubin 0.60, AST 23, ALT 11 L, Alkaline Phosphatase 79, Total Protein 6.0 L, Albumin 3.0 L, Globulin 3.0, Albumin/Globulin Ratio 1.0, TSH 3.680 12/25/23 20:50: Lactic Acid 0.7 12/26/23 04:20: Urine Color Yellow, Urine Clarity Clear, Urine pH 6.0, Ur Specific [place] 1.015, Urine Protein Negative, Urine Glucose (UA) Normal, Urine Ketones Negative, Urine Occult Blood Negative, Urine Nitrite Negative, Urine Bilirubin Negative, Urine Urobilinogen Normal, Ur Leukocyte Esterase Negative, Urine RBC 0 SEEN, Urine WBC 0 SEEN, Ur Squamous Epith Cells 0 SEEN, Urine Bacteria 0 SEEN, Urine Mucus 0 SEEN, Urine Opiates Screen POSITIVE H, Urine Methadone Screen NEGATIVE, Ur Barbiturates Screen NEGATIVE, Ur Phencyclidine Scrn NEGATIVE, Ur Amphetamines Screen NEGATIVE, MDMA (Ecstasy) Screen NEGATIVE, U Benzodiazepines Scrn NEGATIVE, Urine Cocaine Screen NEGATIVE, U Cannabinoids Screen NEGATIVE, Ur Drug Screen Comment 12/26/23 05:11: WBC 3.7 L, RBC 3.35 L, Hgb 9.8 L, Hct 30.8 L, MCV 91.9, MCH 29.3, MCHC 31.8 L, RDW Std Deviation 48.6 H, RDW Coeff of [place] 14.4, Plt Count 166, MPV 8.6, Immature Gran % (Auto) 0.800, Neut % (Auto) 20.5 L, Lymph % (Auto) 75.2 H, [place] % (Auto) 1.9, Eos % (Auto) 1.1, Baso % (Auto) 0.5, Absolute Neuts (auto) 0.8 L, Absolute Lymphs (auto) 2.76, Nucleated RBC % 0, Differential Comment SCANNED, Sodium 137, Potassium 3.8, Chloride 108 H, Carbon Dioxide 24.0, Anion Gap 5, BUN 17, Creatinine 0.88, Estim Creat Clear Calc 61.96, Est GFR (MDRD) Af Amer 106, Est GFR (MDRD) Non-Af 88, BUN/Creatinine Ratio 19.4, Glucose 121 H, Calcium 8.0 L, Phosphorus 2.8, Magnesium 1.8, Total Bilirubin 0.60, AST 18, ALT 8 L, Alkaline Phosphatase 69, Total Protein 5.3 L, Albumin 2.6 L, Globulin 2.7, Albumin/Globulin Ratio 1.0, Folate 10.50 12/26/23 05:55: Folate Cancelled 12/26/23 06:40: POC Glucose 114 H Microbiology 12/26/23 04:20 Urine, Clean Catch Legionella Antigen - Final 12/26/23 04:20 Urine, Clean Catch Streptococcus pneumoniae Antigen (M - Final 12/26/23 01:00 Stool Stool Lactoferrin - Final 12/26/23 01:00 Stool Enteric Bacteriology - Final 12/26/23 01:00 Stool Clostridioides difficile (PCR) - Final Diagnostic Data Chest X-Ray 12/25/23 20:00 IMPRESSION: Minimal right lower lobe airspace disease which may represent atelectasis or early pneumonia. Electronically Signed: Ayad Caballero MD at 20:32 EDT , Chest/Abdomen/Pelvis CT 12/25/23 22:17 IMPRESSION: 1. Extensive adenopathy within the chest and abdomen possibly due to lymphoma. This is greater in the chest than in the abdomen. 2. Minimal thickening of the wall the distal sigmoid colon possibly due to colitis. There is no obvious inflammation surrounding mesentery. No other acute abnormalities in the chest, abdomen or pelvis. Electronically Signed: Ayad Caballero MD at 0:03 EDT , I personally reviewed patient's CT scan images of the chest abdomen and pelvis concur with the findings of generalized lymphadenopathy. Pathology report for lymph node biopsy January 2013 and a bone marrow biopsy March 2013 reviewed in EMR
[2023-12-26 09:40] LABS: Vitamin B12 1031 pg/mL (211-911)
[2023-12-26 09:43] VITALS: BP 113/49; PULSE 79; RESP 16; TEMP 36.8; O2SAT 93
[2023-12-26] MEDS: Sertraline 50 MG Tablet 12.5 MG PO (10:06)
[2023-12-26] MEDS: Carvedilol 3.125 MG TABLET PO ×2 (10:07→20:54)
[2023-12-26] MEDS: Finasteride 5 MG Tablet PO (10:07)
[2023-12-26] MEDS: Enoxaparin 40 MG/0.4 ML Syringe SC (10:07)
[2023-12-26 10:09] LABS: Hemoglobin A1c 6.9 % (3.8-5.6)
[2023-12-26] MEDS: Insulin Lispro 100 UNIT/ML INSULN.PEN SC ×2 (11:04→20:28)
[2023-12-26 11:30] LABS: Bedside Glucose 190 mg/dL (74-106)
--- NOTE | 2023-12-26 12:24 | CASEMGMT ---
FREDI MEDINA Assessment: Face to Face with pt for initial transition planning/care coordination assessment. FREDI MEDINA introduced self and role at [facility], pt voices understanding and consents to assessment. Pt is A&O x4 and answers all questions appropriately at this time. Pt lying in bed in no distress. Care providers, pharmacy, and demographics verified/updated. Strata: 2 Admitting Dx: Pneumonia PCP: Maile Specialists: Monalisa, Urologist; [facility]; Jermain, Human Resources Generalist Preferred Pharmacy: [facility] Insurance: [employer] Prescription Benefit: yes LNOK: Elena, Daughter; Jennifer, Daughter; Chapin, Son. Living Arrangements: Pt lives with son and DIL in a 1 story home with 2 steps to enter. ADLs: Pt needs assistance with ADLs. Transportation: Pt states family provides transportation. DME: Shower chair, Raised Toilet seat, cane, fww. HHC/SNF: Previously at [facility] and used [facility] and [facility] in the past. Pt states not on O2 at home, FREDI MEDINA provided list of local oxygen providers, pt chose [facility] as DME provider of choice. FREDI MEDINA discussed DC planning with pt, pt referred to discussing this with son. FREDI MEDINA called pt son, he states he is in a wheelchair and his works. Pt son states pt was riding a bike last week so has had significant change in weakness over past week. Would like to follow therapy recommendations for placement and see how pt does. If placement is recommendation, chose [facility]CU for SNF. If unable to accept, follow up with family about second choice. CM to follow. Advised pt to ask CM if any further question/concerns/needs arise, voices understanding. Pt Goal: TBD Plan: TBD, follow therapy recommendations and follow for oxygen needs. Mariam RAI CM
[2023-12-26] MEDS: Vancomycin HCl 750 MG in 0.9% Normal Saline (250mL Bag) 250 ML 250 MG IV (14:42)
--- NOTE | 2023-12-26 15:14 | CASEMGMT ---
Therapy is recommending correction facility for patient. Per RN CM patient's family would like patient to go to [facility] as he was there recently. SW made a referral to [facility]. Plan: SNF pending accepting facility and pre-cert. Abbie FITZGERALD
[2023-12-26 15:21] VITALS: BP 122/64; PULSE 72; RESP 16; TEMP 36.4; O2SAT 99
[2023-12-26 16:11] LABS: Bedside Glucose 119 mg/dL (74-106)
--- NOTE | 2023-12-26 16:53 | PN.HOSP_ITS ---
Hospitalist Note 88-year-old male with date of admission time and 12/26/2023 presented with diarrhea, altered mental status, and falls w/ hypoxia. Patient evaluated at bedside, patient still with some stomach upset but discussed with nurse and time of evaluation he had not had continued high-volume stools, denies feeling short of breath at time of evaluation #Hypoxia -Patient not on home O2 but was 84% on room air in the ED necessitating O2 placement -Right lower lobe infiltrate noted on chest x-ray but CT chest abdomen pelvis reviewed felt there was more scarring and fibrosis but query if there could be small right-sided infiltrate upon reviewing the films however. Given patient's hypoxia and on admission H&P there had been reported to be increased shortness of breath and cough there is concern that there could be component of community- acquired pneumonia # Multiple episodes of diarrhea with associated colitis -Stool studies negative but some colitis seen # #Extensive adenopathy in setting of known CLL/lymphoma -Oncology evaluated and feels nothing acute needs addressed or managed and patient can follow-up with his outpatient provider or establish with [facility] if preferred # Frequent falls # Chronic dementia - #Hypothyroidism -Continue Synthroid #Hx CAD s/p stenting -Continue BB and aspirin -Pt does not appear to be on statin #Chronic BPH with obstruction -Continue home medications #DVT ppx: Lovenox subcu Catalina Sanchez MD
--- NOTE | 2023-12-26 16:53 | PCM.HOSP.N ---
Hospitalist Note 88-year-old male with date of admission time and 12/26/2023 presented with diarrhea, altered mental status, and falls w/ hypoxia. Patient evaluated at bedside and discussed with nurse and time of evaluation he had not had continued high-volume stools, denies feeling short of breath at time of evaluation. Presently weaning O2 most recently 99% on 3 L and will continue to wean as tolerated. Right lower lobe infiltrate noted on chest x-ray but CT chest abdomen pelvis reviewed felt there was more scarring and fibrosis but query if there could be small right-sided infiltrate upon reviewing the films however. Given patient's hypoxia and on admission H&P there had been reported to be increased shortness of breath and cough there is still concern that there could be component of community-acquired pneumonia. Patient is improving and if this was fluid overload (not consistent w/ this on imaging) or PE would not anticipate patient would be improving with antibiotics. Patient has penicillin allergy, initially had been given a dose of Levaquin so we will continue this. Flagyl been continued to cover potential GI source while workup underway. Do feel that vancomycin can be discontinued at this time.
[2023-12-26] MEDS: Aspirin 81 MG TAB.CHEW PO (17:19)
[2023-12-26 18:56] VITALS: BMI 23.9
[2023-12-26 20:39] VITALS: BP 100/50; PULSE 70; RESP 16; TEMP 37; O2SAT 96
[2023-12-26 20:42] VITALS: O2SAT 96
[2023-12-26 21:14] LABS: Bedside Glucose 184 mg/dL (74-106)
[2023-12-26] MEDS: levoFLOXacin IV 750 MG/150 ML BAG 100 MG IV (21:31)
[2023-12-27 04:43] VITALS: BMI 23.8
[2023-12-27] MEDS: metroNIDAZOLE 500 MG/100 ML BAG 100 MG IV ×3 (05:00→21:03)
[2023-12-27] MEDS: 0.9% Saline Lock 10 ML Syringe IV (05:00)
[2023-12-27] MEDS: Levothyroxine 88 MCG Tablet PO (05:09)
[2023-12-27 05:14] VITALS: BP 134/58; PULSE 65; RESP 16; TEMP 36.9; O2SAT 94
[2023-12-27 06:14] LABS: Bedside Glucose 115 mg/dL (74-106)
[2023-12-27 07:20] LABS: Absolute Lymphocyte Count 2.22 X10^3/uL (0.83-4.51); Absolute Neutrophil Count 0.8 X10^3/uL (2.0-7.7); Basophil# 0.02 X10^3/uL; Basophil% 0.6 % (0-1); Eosinophil# 0.05 X10^3/uL; Eosinophils% 1.6 % (0-5); Hematocrit 28.7 % (40-54); Hemoglobin 9.4 g/dL (13.0-16.5); Lymphocyte # 2.22 X10^3/ul (0.83-4.51); Lymphocyte % 70.3 % (19-41); Mean Corp Hgb Conc 32.8 g/dL (32-36); Mean Corpuscular Hgb 29.5 pg (27.0-32.0); Mean Platelet Vol. 9.1 fl (6.2-12.0); Monocyte# 0.06 X10^3/uL; Monocyte% 1.9 % (0-10); NRBC Flagged by Analyzer 0 % (0-5); Neutrophil # 0.79 X10^3/uL (2.7-7.7); POSITIVE DIFFERENTIAL YES; POSITIVE MORPHOLOGY YES; Platelet Count 168 K/mm3 (150-450); RBC Distribution Width CV 14.2 % (11.6-14.6); RBC Distribution Width SD 46.6 fl (35.1-43.9); Red Blood Count 3.19 M/mm3 (4.6-6.2); White Blood Count 3.2 K/mm3 (4.4-11.0)
[2023-12-27 07:21] LABS: Differential Indicated SCAN CRITERIA MET
[2023-12-27 07:24] LABS: Anion Gap 6 (5-15); BUN 15 mg/dL (7-18); BUN/Creat Ratio 16.8 RATIO (10-20); Calcium,Total 8.1 mg/dL (8.5-10.1); Chloride 107 mmol/L (98-107); EST Glomerular Filtration Rate 86 mL/min (>60); Est Glom Filt Rate - Afr Amer 104 mL/min (>60); Estimated Creatinine Clearance 60.83 ml/min; Glucose 109 mg/dL (74-106); Potassium 3.8 mmol/L (3.5-5.1); Sodium Level 138 mmol/L (136-145)
[2023-12-27 08:52] VITALS: BP 126/69; PULSE 62; RESP 18; TEMP 36.6; O2SAT 93
[2023-12-27] MEDS: Carvedilol 3.125 MG TABLET PO ×2 (08:56→21:06)
[2023-12-27] MEDS: Sertraline 50 MG Tablet 12.5 MG PO (08:56)
[2023-12-27] MEDS: Enoxaparin 40 MG/0.4 ML Syringe SC (08:56)
[2023-12-27] MEDS: Finasteride 5 MG Tablet PO (08:56)
--- NOTE | 2023-12-27 09:32 | CASEMGMT ---
At this time TCU does not have any availability. SW will see if patient is medically ready and if so SW will contact family regarding other choices for SNF. Abbie Gregory MSW AMILCAR
[2023-12-27 11:17] VITALS: O2SAT 92
[2023-12-27 12:03] LABS: Bedside Glucose 104 mg/dL (74-106)
--- NOTE | 2023-12-27 14:32 | CASEMGMT ---
VÍCTOR called patient's daughter Elena. VÍCTOR introduced self and role at [facility]. VÍCTOR let Elena know that VÍCTOR was informed family would like patient to go to TCU. VÍCTOR explained TCU does not have any beds available. Elena asked VÍCTOR to leave a list of facilities in patient's room and email one to her ([email or web address]). VÍCTOR did both. Abbie FITZGERALD
[2023-12-27 15:01] VITALS: BP 106/64; PULSE 70; RESP 18; TEMP 37.2; O2SAT 99
[2023-12-27 17:01] LABS: Bedside Glucose 110 mg/dL (74-106)
[2023-12-27] MEDS: Aspirin 81 MG TAB.CHEW PO (17:09)
--- NOTE | 2023-12-27 18:40 | PCM.PN.HOSP ---
Reason for Visit Reason for Visit: Diagnoses Diarrhea, unspecified (12/26/23) Weakness (12/26/23) Subjective Subjective Patient denies any problems with his breathing or cough, not having any abdominal pain, diarrhea improving Discussed with patient's daughter and she reports he is just been kind of low energy and down for a while but specifically what brought him in was the diarrhea. She denies that he had any respiratory complaints prior to arrival. She does think he is improving and is open to placement if it is felt it would be beneficial Objective Data Objective Data Vital Signs: Vital Signs Temp Pulse Resp BP Pulse Ox O2 Del Method O2 Flow Rate 99.0 F 70 18 106/64 99 Room Air 2 12/27/23 15:01 12/27/23 15:01 12/27/23 15:01 12/27/23 15:01 12/27/23 15:01 12/27/23 15:01 12/27/23 11:20 Oxygen Flow Rate (L/min) 2 Oxygen Delivery Method Room Air Weight: 75.4 kg Body Mass Index (BMI) 23.8 Intake & Output: Intake and Output for Last 24 Hours 12/25/23 12/26/23 12/27/23 23:59 23:59 23:59 Intake Total 1000 / 1000 2500 / 2500 350 / 350 Output Total 400 / 400 1300 / 1300 Balance 1000 / 1000 2100 / 2100 -950 / -950 Lab / Micro Data 12/27/23 06:19 12/27/23 06:19 Labs: Laboratory Results - last 24 hr 12/26/23 20:26: POC Glucose 184 H 12/27/23 05:55: POC Glucose 115 H 12/27/23 06:19: WBC 3.2 L, RBC 3.19 L, Hgb 9.4 L, Hct 28.7 L, MCV 90.0, MCH 29.5, MCHC 32.8, RDW Std Deviation 46.6 H, RDW Coeff of Lamont 14.2, Plt Count 168, MPV 9.1, Immature Gran % (Auto) 0.600, Neut % (Auto) 25.0 L, Lymph % (Auto) 70.3 H, [place] % (Auto) 1.9, Eos % (Auto) 1.6, Baso % (Auto) 0.6, Absolute Neuts (auto) 0.8 L, Absolute Lymphs (auto) 2.22, Nucleated RBC % 0, Differential Comment COMMENT, Sodium 138, Potassium 3.8, Chloride 107, Carbon Dioxide 24.0, Anion Gap 6, BUN 15, Creatinine 0.90, Estim Creat Clear Calc 60.83, Est GFR (MDRD) Af Amer 104, Est GFR (MDRD) Non-Af 86, BUN/Creatinine Ratio 16.8, Glucose 109 H, Calcium 8.1 L 12/27/23 11:41: POC Glucose 104 12/27/23 16:44: POC Glucose 110 H Micro: Microbiology 12/26/23 10:50 Mucosa - Nose Respiratory Panel (PCR) - Final 12/26/23 10:50 Nasal Secretion SARS-CoV-2 Antigen (Rapid) - Final 12/26/23 04:20 Urine, Clean Catch Legionella Antigen - Final 12/26/23 04:20 Urine, Clean Catch Streptococcus pneumoniae Antigen (M - Final 12/26/23 01:00 Stool Stool Lactoferrin - Final 12/26/23 01:00 Stool Enteric Bacteriology - Final 12/26/23 01:00 Stool Clostridioides difficile (PCR) - Final Physical Exam Narrative General: Alert, no apparent distress HEENT: Atraumatic, normocephalic Eyes: Anicteric, normal conjunctiva, extraocular movements grossly intact Neck: Supple Respiratory: Somewhat diminished at the bases, normal respiratory effort Cardiovascular: Regular rate GI: Soft, nontender, nondistended Extremities: No edema Musculoskeletal: Moving all extremities Neuro: No overt focal neurological deficits Skin: No rashes appreciated Psych: Cooperative Assessment & Plan Assessment/Plan (1) Diarrhea: QUALIFIERS: Diarrhea type: presumed infectious Qualified Code(s): R19.7 - Diarrhea, unspecified PLAN: Plan # Mild colitis with multiple episodes of diarrhea -Minimal thickening of wall at distal sigmoid colon possibly due to colitis associated with multiple episodes of diarrhea including fecal incontinence prior to admission -Patient was started on empiric antibiotics given his age and lymphoma/comorbidities -Diarrhea has been improving -Status post IV fluids on arrival, no further fluids given as patient not having more diarrhea and is tolerating p.o. #Hypoxia -Patient not on home O2 but was 84% on room air in the ED necessitating O2 placement -Right lower lobe infiltrate noted on chest x-ray but CT chest abdomen pelvis reviewed felt there was more scarring and fibrosis -Patient had been on 2 L of O2 with variable sats while admitted with most recently documented 99% on room air. Patient has no respiratory complaints but oxygenation has been improving with antibiotics and conservative measures so query if there was an early pneumonia that is being treated with the above antibiotics -Patient does not appear fluid overloaded, given he is improving with antibiotics do not necessarily think he needs a CTA or PE workup but if any worsening could consider this. 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 Dawn and was supposed to be placed on treatment however ultimately refused and is not followed there in over 6 months -Given CBC there is concern he may have bone marrow involvement now. Discussed this with daughter and recommended if they would like further workup or treatment to follow with Dr. Dawn upon discharge or can establish care with [facility] care if preferred as he was seen in house by provider # Frequent falls -PT/OT -May need placement upon discharge # Chronic dementia -Daughter thinks he is close to baseline -Continue supportive care # Depression and apathy -Recently restarted on Zoloft, this can be further titrated and managed on an outpatient basis #Hypothyroidism -Continue Synthroid #Hx CAD s/p stenting -Continue BB and aspirin -Pt does not appear to be on statin #Chronic BPH with obstruction -Continue home medications #DVT ppx: Lovenox subcu Catalina Sanchez MD Time spent in the patient's overall evaluation,decision-making process, review of diagnostic data, adjustment of management, discussion with other providers, nursing nursing and ancillary staff involved in patient's care documentation, 36 minutes Charges/Coding Visit Charges Inpatient E&M: 16869 Subs Hosp L2
[2023-12-27 20:57] VITALS: BP 152/78; PULSE 82; RESP 18; TEMP 36.7; O2SAT 93
[2023-12-27 21:28] LABS: Bedside Glucose 139 mg/dL (74-106)
[2023-12-27] MEDS: levoFLOXacin IV 750 MG/150 ML BAG 100 MG IV (22:29)
[2023-12-28] VITALS (11 sets, daily range): BP systolic 87–133; BP diastolic 51–93; PULSE 70–95; RESP 16–18; TEMP 36.7–37.4; O2SAT 86–97; BMI 24.0
[2023-12-28] MEDS: metroNIDAZOLE 500 MG/100 ML BAG 100 MG IV ×2 (05:06→14:25)
[2023-12-28 06:00] LABS: Absolute Lymphocyte Count 2.09 X10^3/uL (0.83-4.51); Absolute Neutrophil Count 0.6 X10^3/uL (2.0-7.7); Basophil# 0.01 X10^3/uL; Basophil% 0.4 % (0-1); Eosinophil# 0.02 X10^3/uL; Eosinophils% 0.7 % (0-5); Hematocrit 29.2 % (40-54); Hemoglobin 9.6 g/dL (13.0-16.5); Lymphocyte # 2.09 X10^3/ul (0.83-4.51); Lymphocyte % 73.6 % (19-41); Mean Corp Hgb Conc 32.9 g/dL (32-36); Mean Corpuscular Hgb 28.9 pg (27.0-32.0); Mean Platelet Vol. 8.6 fl (6.2-12.0); Monocyte# 0.04 X10^3/uL; Monocyte% 1.4 % (0-10); NRBC Flagged by Analyzer 0 % (0-5); Neutrophil # 0.61 X10^3/uL (2.7-7.7); Neutrophil % 21.4 % (47-70); POSITIVE DIFFERENTIAL YES; Platelet Count 165 K/mm3 (150-450); RBC Distribution Width CV 14.4 % (11.6-14.6); RBC Distribution Width SD 46.1 fl (35.1-43.9); Red Blood Count 3.32 M/mm3 (4.6-6.2); White Blood Count 2.8 K/mm3 (4.4-11.0)
[2023-12-28] MEDS: Levothyroxine 88 MCG Tablet PO (06:04)
[2023-12-28 06:07] LABS: Differential Indicated SCAN CRITERIA MET
[2023-12-28 06:26] LABS: Bedside Glucose 112 mg/dL (74-106)
[2023-12-28 06:28] LABS: Anion Gap 7 (5-15); BUN 16 mg/dL (7-18); BUN/Creat Ratio 18.1 RATIO (10-20); Calcium,Total 8.1 mg/dL (8.5-10.1); Chloride 107 mmol/L (98-107); Creatinine, Serum 0.88 mg/dL (0.70-1.30); EST Glomerular Filtration Rate 87 mL/min (>60); Est Glom Filt Rate - Afr Amer 105 mL/min (>60); Estimated Creatinine Clearance 62.22 ml/min; Glucose 125 mg/dL (74-106); Potassium 3.7 mmol/L (3.5-5.1); Sodium Level 138 mmol/L (136-145)
[2023-12-28 07:08] LABS: Differential Comment SCANNED
--- NOTE | 2023-12-28 08:54 | PN.HOSP_ITS ---
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 No new issues. Objective Data Objective Data Vital Signs: Vital Signs Temp Pulse Resp BP Pulse Ox O2 Del Method O2 Flow Rate 37.1 C 70 18 133/68 H 93 Nasal Cannula 2 12/28/23 03:23 12/28/23 03:23 12/28/23 03:23 12/28/23 03:23 12/28/23 03:23 12/28/23 08:17 12/28/23 08:17 Oxygen Flow Rate (L/min) 2 Oxygen Delivery Method Nasal Cannula Weight: 75.8 kg Body Mass Index (BMI) 24.0 Intake & Output: Intake and Output for Last 24 Hours 12/26/23 12/27/23 12/28/23 23:59 23:59 23:59 Intake Total 2500 / 2500 450 / 600 250 / 250 Output Total 400 / 400 1300 / 1300 Balance 2100 / 2100 -850 / -700 250 / 250 Lab / Micro Data 12/28/23 05:44 12/28/23 05:44 Labs: Laboratory Results - last 24 hr 12/27/23 06:19: Differential Comment COMMENT 12/27/23 11:41: POC Glucose 104 12/27/23 16:44: POC Glucose 110 H 12/27/23 21:08: POC Glucose 139 H 12/28/23 05:44: WBC 2.8 L, RBC 3.32 L, Hgb 9.6 L, Hct 29.2 L, MCV 88.0, MCH 28.9, MCHC 32.9, RDW Std Deviation 46.1 H, RDW Coeff of Lamont 14.4, Plt Count 165, MPV 8.6, Immature Gran % (Auto) 2.500 H, Neut % (Auto) 21.4 L, Lymph % (Auto) 73.6 H, [place] % (Auto) 1.4, Eos % (Auto) 0.7, Baso % (Auto) 0.4, Absolute Neuts (auto) 0.6 L, Absolute Lymphs (auto) 2.09, Nucleated RBC % 0, Differential Comment SCANNED, Sodium 138, Potassium 3.7, Chloride 107, Carbon Dioxide 24.0, Anion Gap 7, BUN 16, Creatinine 0.88, Estim Creat Clear Calc 62.22, Est GFR (MDRD) Af Amer 105, Est GFR (MDRD) Non-Af 87, BUN/Creatinine Ratio 18.1, Glucose 125 H, Calcium 8.1 L 12/28/23 06:05: POC Glucose 112 H Micro: Microbiology 12/26/23 10:50 Mucosa - Nose Respiratory Panel (PCR) - Final 12/26/23 10:50 Nasal Secretion SARS-CoV-2 Antigen (Rapid) - Final 12/26/23 04:20 Urine, Clean Catch Legionella Antigen - Final 12/26/23 04:20 Urine, Clean Catch Streptococcus pneumoniae Antigen (M - Final 12/26/23 01:00 Stool Stool Lactoferrin - Final 12/26/23 01:00 Stool Enteric Bacteriology - Final 12/26/23 01:00 Stool Clostridioides difficile (PCR) - Final Physical Exam Narrative General: Alert, no apparent distress HEENT: Atraumatic, normocephalic Eyes: Anicteric, normal conjunctiva, extraocular movements grossly intact Neck: Supple Respiratory: Somewhat diminished at the bases, normal respiratory effort Cardiovascular: Regular rate GI: Soft, nontender, nondistended Extremities: No edema Musculoskeletal: Moving all extremities Neuro: No overt focal neurological deficits Skin: No rashes appreciated Psych: Cooperative Const alert Constitutional Narrative: Patient is confused and chronically ill-appearing. General Appearance: cooperative Orientation / Consciousness: confused HEENT normocephalic, head/scalp atraumatic and hearing grossly normal bilaterally Eyes PERRL and EOMs intact bilaterally Neck no lymphadenopathy and supple Resp Resp Narrative: bibasilar crackles. Cardio regular rate and regular rhythm GI normal to inspection, nondistended, normoactive bowel sounds, soft to palpation, non-tender and non-distended Extremity normal to inspection and full ROM Neuro Neuro Narrative: Patient is alert but lethargic Sensorium / Orientation: awake and alert Speech: speech normal Psych affect normal Assessment & Plan Assessment/Plan (1) Diarrhea: QUALIFIERS: Diarrhea type: presumed infectious Qualified Code(s): R19.7 - Diarrhea, unspecified PLAN: Plan Colitis * presents with diarrhea * CT notes minimal thickening of the the wall of the distal sigmoid colon * Improving with Abx. * C diff, enteric panel, fecal leuks negative. O+P pending. * Suspect infectious. given location seems less likely ischemic. Consider outpt Gi referral if symptoms persist. Hypoxia * present on admission * COVID 19, legionella Ag, strep Ag negative. * CT chest reviewed and compared to CT a/p on 01/06/23. Seems more likely chronic scarring * Check home oxygen evaluation. 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 Recommend pulmonary follow up. Debility: * frequent fall. * PT OT. Chronic conditions: * CLL-Patient previously followed with Dr. Dawn and was supposed to be placed on treatment however ultimately refused and is not followed there in over 6 months-Given CBC there is concern he may have bone marrow involvement now. Discussed this with daughter and recommended if they would like further workup or treatment to follow with Dr. Dawn upon discharge or can establish care with [facility] care if preferred as he was seen in house by provider * Chronic dementia-Daughter thinks he is close to baseline-Continue supportive care * Depression and apathy-Recently restarted on Zoloft, this can be further titrated and managed on an outpatient basis * Hypothyroidism-Continue Synthroid * Hx CAD s/p stenting-Continue BB and aspirin-Pt does not appear to be on statin * Chronic BPH with obstruction-Continue home medications VTE prophylaxis: LMWH. DC to [facility] patient's son.
--- NOTE | 2023-12-28 09:12 | CASEMGMT ---
Social Work Phone call placed to pt dgt [facility] to obtain SNF preferences. Dgt continues to request TCU. SW reiterated that TCU does not have beds available. Dgts next choice is [facility]. DC clerical administrative assistant updated and to send referral. Plan: [facility], pending acceptance and precCAMILA Servin
--- NOTE | 2023-12-28 09:28 | CASEMGMT ---
Addendum entered by Shelbie Andrea 12/28/23 13:32: [facility] has accepted. Shelbie Andrea DC Planning Asst. Original Note: Discharge Planning Referral sent via [facility] to [facility]. Shelbie Andrea DC Planning Asst.
[2023-12-28] MEDS: Sertraline 50 MG Tablet 12.5 MG PO (10:19)
[2023-12-28] MEDS: Finasteride 5 MG Tablet PO (10:19)
[2023-12-28] MEDS: Enoxaparin 40 MG/0.4 ML Syringe SC (10:19)
[2023-12-28] MEDS: Carvedilol 3.125 MG TABLET PO (10:19)
[2023-12-28] MEDS: Ondansetron 4 MG/2 ML Vial IV (10:28)
[2023-12-28 12:17] LABS: Bedside Glucose 121 mg/dL (74-106)
--- NOTE | 2023-12-28 13:38 | CASEMGMT ---
Addendum entered by Anne Love 12/28/23 15:23: Social Work Return call from [facility] and precert has been obtained. Pt may admit to [facility] today thru 12/30. Reference #[id number]. Physician notified and pt is ready for dc today. 7000 exemption form completed in [employer]. VÍCTOR updated pt dgt that physician not feels pt is ready for dc and he will be going to [facility] today. Disposition: [facility], skilled level of care under convalescent stay CAMILA Jaquez Original Note: Social Work [facility] is able to accept pt. VÍCTOR faxed clinicals to [facility] and requested precert. Phone call to pt dgt [facility] and notified that pt has been accepted at [facility] and per physician, pt may be ready for dc tomorrow. Elena agreeable to dc plan. Plan: [facility], pending precert CAMILA Jaquez
--- NOTE | 2023-12-28 15:13 | TREXTCAR_ITS ---
Diet Diet Order/Speech Therapy: 12/28/23 11:54 Carb [Diet: Carbohydrate Controlled] Food consistency:: Regular Liquid Consistency:: Regular/Thin Routine Orders/Code Status Routine Lab Work: CBC (weekly) and BMP (weekly) Code Status: Full Code Wound(s) lower legs: Wound Type: scattered scabs Therapies Physical Therapy: Eval and Treat Occupational Therapy: Eval and Treat Problem/Diagnosis (1) Diarrhea: Status: Acute Code(s): R19.7 - Diarrhea, unspecified Plan Colitis * presents with diarrhea * CT notes minimal thickening of the the wall of the distal sigmoid colon * Improving with Abx. * C diff, enteric panel, fecal leuks negative. O+P pending. * Suspect infectious. given location seems less likely ischemic. Consider outpt Gi referral if symptoms persist. Hypoxia * present on admission * COVID 19, legionella Ag, strep Ag negative. * CT chest reviewed and compared to CT a/p on 01/06/23. Seems more likely chronic scarring * Check home oxygen evaluation. 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 Recommend pulmonary follow up. Debility: * frequent fall. * PT OT. Chronic conditions: * CLL-Patient previously followed with Dr. Dawn and was supposed to be placed on treatment however ultimately refused and is not followed there in over 6 months-Given CBC there is concern he may have bone marrow involvement now. Discussed this with daughter and recommended if they would like further workup or treatment to follow with Dr. Dawn upon discharge or can establish care with [facility] care if preferred as he was seen in house by provider * Chronic dementia-Daughter thinks he is close to baseline-Continue supportive care * Depression and apathy-Recently restarted on Zoloft, this can be further titrated and managed on an outpatient basis * Hypothyroidism-Continue Synthroid * Hx CAD s/p stenting-Continue BB and aspirin-Pt does not appear to be on statin * Chronic BPH with obstruction-Continue home medications VTE prophylaxis: LMWH. DC to [facility]. DW patient's son. Allergies/Procedures Done in Hospital Allergies Penicillins Allergy (Verified 12/25/23 18:26) Hives tree and shrub pollen Allergy (Verified 12/25/23 18:26) Other lisinopril Adverse Reaction (Mild, Verified 12/25/23 18:26) cough Procedures: None Type of Care/Length of Stay Estimated LOS: Convalescent Care Less Than 30 days Type of Care Needed: Skilled Rehab Potential: Fair Prognosis: Good Additional Orders/Day of Discharge Day of Discharge: 12/28/23 Dietary and Speech Recommendations Dietitian Recommendations/Changes: Will liberalize diet to CCD to manage blood sugars. Discharge Plan Admission Admit Date/Time: 12/26/23 00:03 Primary Reason for Your Visit: Colitis Attending Provider: Kalpesh Avina Primary Care Provider: Wagner Gr Consulting Providers: Lokesh Pineda; Lokesh Wong; Smith Rivas; Rufino Kee; Cale Hastings; Priyank Neumann; Tobin Sky; Juan David Kirkpatrick; Maggie Harris NP; Catalina Sanchez Discharge Orders/Prescriptions Prescriptions: New levofloxacin 750 mg tablet 750 mg PO DAILY Qty: 5 0RF metronidazole 500 mg tablet 500 mg PO Q8H Qty: 15 0RF Continued carvedilol 3.125 MG tablet 3.125 mg PO BID dutasteride 0.5 mg capsule 0.5 mg PO DAILY levothyroxine 88 mcg tablet 88 mcg PO DAILY sertraline 25 mg tablet 12.5 mg PO DAILY aspirin 81 mg Tablet,Chewable 81 mg PO QPM Referrals / Follow Up: [facility] [Provider Group] - Within 3 Months Wagner Gr MD [Primary Care Provider] - Within 2 Weeks Disposition Disposition (needs filled in before D/C Order can be placed): Intermediate Facility (1) Diarrhea Qualifiers: Diarrhea type: presumed infectious Qualified Code(s): R19.7 - Diarrhea, unspecified
--- NOTE | 2023-12-28 15:19 | DS.PCM_ITS ---
Providers Date of Admission: 12/26/23 Primary Care Physician: Dr. Wagner Gr MD Consultations 12/26/23 03:18 Consult: Oncology/Hematology Routine Consulting Provider: *[facility] Reason for Consult: History of Lymphoma with suggested recurrence on CT this admission. EMERGENT Consult: No MD Notified: Yes Date Notified: 12/26/23 Time Notified: 06:49 Method of Notification: Text Reason For Visit: PNEUMONIA Diagnosis Discharge Diagnosis (1) Diarrhea: Status: Acute Code(s): R19.7 - Diarrhea, unspecified Qualifiers: Diarrhea type: presumed infectious Qualified Code(s): R19.7 - Diarrhea, unspecified Plan Colitis * presents with diarrhea * CT notes minimal thickening of the the wall of the distal sigmoid colon * Improving with Abx. LVQ and metronidazole. * C diff, enteric panel, fecal leuks negative. O+P pending. * Suspect infectious. given location seems less likely ischemic. Consider outpt Gi referral if symptoms persist. Hypoxia * present on admission * COVID 19, legionella Ag, strep Ag negative. Cannot rule out underlying pneumonia. Continue LVQ as above. * CT chest reviewed and compared to CT a/p on 01/06/23. Seems more likely chronic scarring * Check home oxygen evaluation. 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 Recommend pulmonary follow up. Debility: * frequent fall. * PT OT. Chronic conditions: * CLL-Patient previously followed with Dr. Dawn and was supposed to be placed on treatment however ultimately refused and is not followed there in over 6 months-Given CBC there is concern he may have bone marrow involvement now. Discussed this with daughter and recommended if they would like further workup or treatment to follow with Dr. Dawn upon discharge or can establish care with [facility] care if preferred as he was seen in house by provider * Chronic dementia-Daughter thinks he is close to baseline-Continue supportive care * Depression and apathy-Recently restarted on Zoloft, this can be further titrated and managed on an outpatient basis * Hypothyroidism-Continue Synthroid * Hx CAD s/p stenting-Continue BB and aspirin-Pt does not appear to be on statin * Chronic BPH with obstruction-Continue home medications VTE prophylaxis: LMWH. DC to [facility]. [facility] patient's son. Medications at Discharge Home Medications carvedilol 3.125 mg tablet 3.125 mg PO BID bp 01/29/20 dutasteride 0.5 mg capsule 0.5 mg PO DAILY prostate 12/08/22 levothyroxine 88 mcg tablet 88 mcg PO DAILY thyroid 12/26/22 aspirin 81 mg chewable tablet 81 mg PO QPM heart health 09/26/23 sertraline 25 mg tablet 12.5 mg PO DAILY 09/26/23 levofloxacin 750 mg tablet 750 mg PO DAILY #5 tabs 12/28/23 metronidazole 500 mg tablet 500 mg PO Q8H #15 tabs 12/28/23 Hospital Course Operations None Procedures None Summary of Care Provided Minutes Spent on Discharge: 40 Weight / BMI Weight Weight: 75.8 kg Body Mass Index (BMI) 24.0 ABG / Lab / Microbiology Data 12/28/23 05:44 12/28/23 05:44 Laboratory: Laboratory Results - last 24 hr 12/27/23 16:44: POC Glucose 110 H 12/27/23 21:08: POC Glucose 139 H 12/28/23 05:44: WBC 2.8 L, RBC 3.32 L, Hgb 9.6 L, Hct 29.2 L, MCV 88.0, MCH 28.9, MCHC 32.9, RDW Std Deviation 46.1 H, RDW Coeff of [place] 14.4, Plt Count 165, MPV 8.6, Immature Gran % (Auto) 2.500 H, Neut % (Auto) 21.4 L, Lymph % (Auto) 73.6 H, [place] % (Auto) 1.4, Eos % (Auto) 0.7, Baso % (Auto) 0.4, Absolute Neuts (auto) 0.6 L, Absolute Lymphs (auto) 2.09, Nucleated RBC % 0, Differential Comment SCANNED, Sodium 138, Potassium 3.7, Chloride 107, Carbon Dioxide 24.0, Anion Gap 7, BUN 16, Creatinine 0.88, Estim Creat Clear Calc 62.22, Est GFR (MDRD) Af Amer 105, Est GFR (MDRD) Non-Af 87, BUN/Creatinine Ratio 18.1, Glucose 125 H, Calcium 8.1 L 12/28/23 06:05: POC Glucose 112 H 12/28/23 11:59: POC Glucose 121 H Microbiology: Microbiology 12/26/23 10:50 Mucosa - Nose Respiratory Panel (PCR) - Final 12/26/23 10:50 Nasal Secretion SARS-CoV-2 Antigen (Rapid) - Final 12/26/23 04:20 Urine, Clean Catch Legionella Antigen - Final 12/26/23 04:20 Urine, Clean Catch Streptococcus pneumoniae Antigen (M - Final 12/26/23 01:00 Stool Stool Lactoferrin - Final 12/26/23 01:00 Stool Enteric Bacteriology - Final 12/26/23 01:00 Stool Clostridioides difficile (PCR) - Final Meaningful Use Info Meaningful Use Meaningful Use Diagnoses (Choose all that apply): None applicable Ischemic Stroke Statin Dosing Therapy Reference: STATIN DOSE THERAPY REFERENCE: * Patients > 75 years receive moderate or high dose statin therapy. * Patients 75 years or YOUNGER should receive HIGH intensity statin dose unless contraindicated. You will be required to document reason for non-treatment if statin daily dose does not meet guidelines. HIGH DOSE STATIN THERAPY DAILY Atorvastatin > than or = to 40 mg Rosuvastatin > than or = to 20 mg Amlodipine + Atorvastatin > than or = to 2.5/40 mg Ezetimibe + Simvastatin 10/80 mg Simvastatin 80mg Discharge Plan Admission Admit Date/Time: 12/26/23 00:03 Primary Reason for Your Visit: Colitis Attending Provider: Kalpesh Avina Primary Care Provider: Wagner Gr Consulting Providers: Lokesh Pineda; Lokesh Wong; Smith Rivas; Rufino Kee; Cale Hastings; Priyank Neumann; Tobin Sky; Juan David Kirkpatrick; Maggie Harris NP; Catalina Sanchez Discharge Orders/Prescriptions Prescriptions: New levofloxacin 750 mg tablet 750 mg PO DAILY Qty: 5 0RF metronidazole 500 mg tablet 500 mg PO Q8H Qty: 15 0RF Continued carvedilol 3.125 MG tablet 3.125 mg PO BID dutasteride 0.5 mg capsule 0.5 mg PO DAILY levothyroxine 88 mcg tablet 88 mcg PO DAILY sertraline 25 mg tablet 12.5 mg PO DAILY aspirin 81 mg Tablet,Chewable 81 mg PO QPM Referrals / Follow Up: [facility] [Provider Group] - Within 3 Months Wagner Gr MD [Primary Care Provider] - Within 2 Weeks Disposition Disposition (needs filled in before D/C Order can be placed): [facility] Charges/Coding Visit Charges Inpatient E&M: 54996 Disch Hosp >30min
--- NOTE | 2023-12-28 15:47 | NURSING ---
Report called to Delmy at [facility]
--- NOTE | 2023-12-28 15:53 | CASEMGMT ---
Discharge Planning Discharge orders, signed med list, and transport time sent to [facility] via [facility]Port. Physicians will transport patient by cot at 6p. Nursing, SW, and patient updated. SW updated patients daughter. Shelbie Andrea DC Planning Asst.
[2023-12-28] MEDS: Aspirin 81 MG TAB.CHEW PO (16:55)
[2023-12-28 22:30] LABS: Bedside Glucose 136 mg/dL (74-106)
== END 2023-12-28 21:15 | disposition skilled nursing facility (03) | DRG 391 ==
LOC: ED 21:07 → PCU 12-26 00:11
PROVIDERS: Internal Medicine; Admitting Provider Internal Medicine; Emergency Provider Emergency Medicine; PCP Family Medicine
DX: A09 Infectious gastroenteritis and colitis, unspecified (principal); J18.9 Pneumonia, unspecified organism; G93.49 Other encephalopathy; C83.99 Non-follicular (diffuse) lymphoma, unspecified, extranodal and solid organ sites; N13.8 Other obstructive and reflux uropathy; R62.7 Adult failure to thrive; F03.90 Unspecified dementia, unspecified severity, without behavioral disturbance, psychotic disturbance, mood disturbance, and anxiety; E11.9 Type 2 diabetes mellitus without complications; E03.9 Hypothyroidism, unspecified; I10 Essential (primary) hypertension; F32.A Depression, unspecified; K21.9 Gastro-esophageal reflux disease without esophagitis; I25.10 Atherosclerotic heart disease of native coronary artery without angina pectoris; E78.00 Pure hypercholesterolemia, unspecified; R15.9 Full incontinence of feces; I25.2 Old myocardial infarction; R59.1 Generalized enlarged lymph nodes; N40.1 Benign prostatic hyperplasia with lower urinary tract symptoms; N32.81 Overactive bladder; R53.1 Weakness; Z74.09 Other reduced mobility; R09.02 Hypoxemia; R53.81 Other malaise; R29.6 Repeated falls; Z68.24 Body mass index [BMI] 24.0-24.9, adult; Z11.52 Encounter for screening for COVID-19; Z79.82 Long term (current) use of aspirin; Z79.890 Hormone replacement therapy; Z79.899 Other long term (current) drug therapy; Z87.891 Personal history of nicotine dependence; Z95.1 Presence of aortocoronary bypass graft; Z95.5 Presence of coronary angioplasty implant and graft; Z88.0 Allergy status to penicillin
CPT/HCPCS: 36415; 71046; 71250; 74176; 80048; 80053; 80307; 81001; 82607; 82746; 82962; 83036; 83605; 83630; 83735; 84100; 84443; 85025; 87177; 87209; 87426; 87449; 87493; 87506; 87633; 93005; 97162; 97166; 97530; 97535; 99285; J7030; J7040; J7050; A4216; J2405